=== PATIENT | female | born 1950 | race Caucasian/White ===

== ENCOUNTER → 2017-06-13 11:41 | Outpatient (CLI) | payer MEDICARE, SELFPAY ==
[2017-06-13 13:34] LABS: AST(SGOT) 25 U/L (15-37); Alanine Aminotransfer ALT/SGPT 24 U/L (13-56); Albumin, Serum 3.8 g/dL (3.2-5.0); Alkaline Phosphatase 39 U/L (45-117); Bilirubin, Direct 0.12 mg/dL (0.00-0.30); Cholesterol 193 mg/dL (200); Globulin 3.7 g/dL (2.2-4.2); High Density Lipoprotein 75 mg/dL; Protein, Total 7.5 g/dL (6.4-8.2); Triglycerides 83 mg/dL; Very Low Density Lipoprotein 17 mg/dL (5-40)
== END ==
PROVIDERS: Family Provider Internal Medicine; PCP Internal Medicine; Visit Provider Internal Medicine Cardiovascular Disease
DX: E78.5 Hyperlipidemia, unspecified (principal)
CPT/HCPCS: 36415; 80061; 80076

== ENCOUNTER → 2018-03-30 10:51 | Outpatient (CLI) | payer MEDICARE, SELFPAY ==
--- NOTE | 2018-03-30 10:53 | ECHOD_ITS ---
Reason For Study: arrhythmia Procedure This was a 2D Doppler, Color Flow transthoracic echocardiogram. The study was technically difficult. Due to repiratory interference. Exam performed in department. Left Ventricle Normal size and thickness. The estimated ejection fraction is 65 %. Stage 1 diastolic dysfunction. No regional wall motion abnormalities noted. Right Ventricle Normal size and thickness. Normal systolic function. Atria Normal left atrium. Normal right atrium. Normal atrial septum. Mitral Valve The mitral valve is structurally normal. No prolapse or stenosis seen. Trivial mitral valve insufficiency. Tricuspid Valve Normal tricuspid valve. Trivial tricuspid valve insufficiency. Right ventricular systolic pressure estimated to be 20 mmHg. Aortic Valve Trisinus/trileaflet aortic valve. Mild diffuse aortic valve thickening. Mild (1+) aortic valve insufficiency. Pulmonic Valve Normal pulmonic valve. Trivial pulmonic valve insufficiency. Great Vessels Normal aortic root. Normal arch. Normal inferior vena cava. Inferior vena cava collapse with sniff. Pericardium/Pleural No pericardial effusion. MMode/2D Measurements & Calculations LVIDd: 3.6 cm IVSd: 0.91 cm Ao root diam: 3.1 cm LVIDs: 2.3 cm LVPWd: 0.84 cm LA dimension: 3.1 cm RVDd: 2.5 cm FS: 34.8 % LAV(MOD-bp): 37.3 ml LA A4 area: 14.4 cm2 RA A4 area: 11.3 cm2 LAV(MOD-bp) Indexed: 21.5 ml/m2 LAV(MOD-sp2): 39.9 ml LAV(MOD-sp4): 34.0 ml Time Measurements MV dec time: 0.22 sec Doppler Measurements & Calculations MV E max isaiah: 54.6 cm/sec Lat Peak E' Isaiah: 8.0 cm/sec Med Peak E' Isaiah: 3.5 cm/sec MV A max isaiah: 81.7 cm/sec E/E' lat: 6.8 E/E' med: 15.7 MV E/A: 0.67 Ao V2 max: 162.5 cm/sec AI max isaiah: 432.3 cm/sec LV V1 max: 105.7 cm/sec Ao max P.6 mmHg AI max P.8 mmHg LV V1 max P.5 mmHg AI dec slope: 166.1 cm/sec2 AI P1/2t: 762.1 msec PA V2 max: 73.4 cm/sec TR max isaiah: 195.3 cm/sec TR max P.3 mmHg Interpretation Summary The estimated ejection fraction is 65 %. Stage 1 diastolic dysfunction. Trivial tricuspid valve insufficiency. Right ventricular systolic pressure estimated to be 20 mmHg. Mild (1+) aortic valve insufficiency. Compared to echo report dated 04/24/2016, LV function and aortic insufficiency has remained the same. RVSP has improved from 35 to 20 mm Hg. Ordering Physician: Zane Sotelo Referring Physician: Jaziel Mendez Performed By: Gabbi Adrian RDCS, RVT
== END ==
PROVIDERS: Family Provider Internal Medicine; PCP Internal Medicine; Referring Provider Internal Medicine Cardiovascular Disease; Visit Provider Internal Medicine Cardiovascular Disease
DX: I47.1 Supraventricular tachycardia (principal)
CPT/HCPCS: 93306

== ENCOUNTER → 2018-04-04 10:28 | Outpatient (CLI) | payer MEDICARE, SELFPAY ==
--- NOTE | 2018-04-04 10:30 | STEWCON_ITS ---
Reason For Study: ARRRHYTHMIA Stress Results Protocol: Stress Echocardiogram Maximum Predicted HR: 150 bpm Target HR: 128 bpm % Maximum Predicted HR: 89 % DurationHeart Rate Stage (mm:ss) (bpm) BP Comment BASELINE 77 118/80DILUTED DEFINITY USED- 2 ML BURCE PROTOCOL- STAGE 1 3:00 133 134/78SOB RECOVERY 91 114/84 Stress Duration: 3:00 mm:ss Maximum Stress HR: 133 bpm Baseline Echocardiogram Findings The estimated ejection fraction is 65 %. Stress Echo Wall motion Data Resting WM Intermediate WM Stress WM Resting Wall Motion Wall Motion Stress No regional wall motion Anterio-Basal: Mildly abnormalities noted. hypokinetic. Mid-Anterior : Mildly hypokinetic. EKG Data The baseline ECG displays normal sinus rhythm. The patient exercised according to the regular Cody protocol for a total duration of 3:03. The maximum heart rate attained was 133 beats per minute. This was 88% of maximum predicted heart rate. The patient exercised into stage 1 of the Cody protocol. During stress, there were no ST or T wave changes noted to suggest ischemia. No clinical angina was noted. Interpretation Summary The study was technically difficult. Contrast injection was performed. The estimated ejection fraction is 65 %. Anterio-Basal: Mildly hypokinetic Mid-Anterior : Mildly hypokinetic Abnormal, adequate, treadmill echocardiogram. Positive for ischemia by echocardiographic criteria. No anginal symptoms noted. Patient developed what appeared to be mild to moderate mid anterior septal hypokinesis at peak exercise seen in 3 views. Patient also developed anterior lateral T wave inversion during recovery. Poor exercise capacity for age. Test terminated due to dyspnea. Final LVEF approximately 50%. Decreased sensitivity due to poor echo windows requiring Definity agent. No complications. Ordering Physician: Deepak^Zane^^^ Referring Physician: Zane Sotelo Performed By: TUAN
== END ==
PROVIDERS: Family Provider Internal Medicine; PCP Internal Medicine; Referring Provider Internal Medicine Cardiovascular Disease; Visit Provider Internal Medicine Cardiovascular Disease
DX: I47.1 Supraventricular tachycardia (principal); I10 Essential (primary) hypertension; E78.5 Hyperlipidemia, unspecified; R94.31 Abnormal electrocardiogram [ECG] [EKG]
CPT/HCPCS: 93017; 93350; Q9957; A4216; C8928

== ENCOUNTER → 2018-04-05 09:58 | Outpatient (CLI) | payer MEDICARE, SELFPAY ==
--- NOTE | 2018-04-05 10:15 | RAD_ITS ---
STUDY: X-RAY CHEST REASON FOR EXAM: Female, 68 years old. Shortness of breath, heart catheterization next TECHNIQUE: PA and lateral views of the chest. COMPARISON: None. FINDINGS: The lungs are clear and expanded. There is no demonstrated pleural abnormality. Normal size heart. Normal mediastinum and conor. Normal visualized pulmonary arteries. There is atherosclerotic calcification of the aortic arch with tortuosity. There are diffuse degenerative changes of the visualized thoracic spine. Mild dextrocurvature of the lower thoracic spine. Normal visualized ribs, clavicles, and shoulders. There is no demonstrated abnormality of the visualized soft tissue structures of the upper abdomen. RAD/Chest PA and Lateral IMPRESSION: 1. No acute cardiopulmonary process. Electronically Signed: Lambert Nielsen MD at 7:13 EST , Service support ,
== END ==
PROVIDERS: Family Provider Internal Medicine; PCP Internal Medicine; Referring Provider Internal Medicine Cardiovascular Disease; Visit Provider Internal Medicine Cardiovascular Disease
DX: R06.09 Other forms of dyspnea (principal); R94.39 Abnormal result of other cardiovascular function study
CPT/HCPCS: 71046

== ENCOUNTER → 2018-04-13 06:43 | Day surgery (SDC) | payer MEDICARE, SELFPAY ==
[2018-03-13 15:44] VITALS: BMI 26.6
[2018-04-05 11:19] LABS: Hematocrit 46.2 % (37-47); Mean Corp Hgb Conc 32.5 g/gl (32-36); Mean Corpuscular Hgb 30.5 pg (27.0-32.0); Mean Corpuscular Volume 94.1 fL (81-99); Mean Platelet Vol. 10.8 fl (6.2-12.0); Platelet Count 275 K/mm3 (150-450); Prothrombin Time (Protime)PT. 13.2 SECONDS (11.7-14.9); RBC Distribution Width CV 14.5 % (11.6-14.6); RBC Distribution Width SD 48.8 fl (35.1-43.9); Red Blood Count 4.91 M/mm3 (4.2-5.4); White Blood Count 5.5 K/mm3 (4.4-11.0)
[2018-04-05 11:20] LABS: Partial Thromboplast Time 31.3 Seconds (24.1-36.2)
[2018-04-05 11:30] LABS: Scan Indicated on CBC? Y/N NO
[2018-04-05 11:43] LABS: Anion Gap 10 (5-15); BUN 19 mg/dL (7-18); BUN/Creat Ratio 15.2 RATIO (10-20); Calcium,Total 9.3 mg/dL (8.5-10.1); Chloride 104 mmol/L (98-107); Creatinine, Serum 1.25 mg/dL (0.55-1.02); EST Glomerular Filtration Rate 45 mL/min (>60); Est Glom Filt Rate - Afr Amer 55 mL/min (>60); Glucose 82 mg/dL (74-106); Potassium 4.1 mmol/L (3.5-5.1); Sodium Level 140 mmol/L (136-145)
[2018-04-12 09:52] VITALS: BMI 26.6
--- NOTE | 2018-04-13 09:32 | CL.D_ITS ---
Patient Name: HALLIE DUMONT Study Date: 04/13/2018 Performing: Zane Sotelo MD Ht: 64.17 inches 163 cm : 1950 Wt: 154.32 lbs 70 kg Age: 68 Gender: female BSA: 1.76 PROCEDURE(S) PERFORMED [id number] CLINICAL PROFILE AND INDICATIONS Indications: Suspected CAD, Cardiac Arrythmia Heart Failure: None Stress/Imaging Stress Echocardiogram: Yes Result: IndeterminantStress Echocardiogram: Indetermina nt Angina Classification Anginal Classification w/in 2 Weeks: No symptoms CAD Presentations: Other: SVT, poor exercise performance. Comorbidities/Risk Factors: Hypertension CONCLUSIONS Normal coronary arteries Normal LV size, wall motion,and systolic function Normal Left Ventricular systolic function RECOMMENDATIONS d/c plavix Management as per referring Procurement Technician DESCRIPTION OF PROCEDURE The patient arrived to the procedure lab. The risks and benefits of the procedure as well as a full d escription of our services here and current unavailability of surgical backup were fully explained to the patient and/or their significant other prior to the catheterization. The Timeout was completed, verifying the correct patient and procedure. The patient's procedural site was prepped and draped in the usual fashion. Local anesthetic was given subcutaneously to right groin region with Lidocaine 2%. Using a modified Seldinger technique, arterial access was obtained via the right femoral artery, a 4 Fr sheath was inserted Left Coronary Artery selective angiography was performed in multiple views us ing a 4 Fr. JL4 catheter. Right Coronary Artery selective angiography was then performed in multiple views using a 4 Fr. 3DRC catheter. Left Ventriculography was performed in LE projection using a 4 Fr . Pigtail catheter. LV to AO pullback pressures were then recorded.The arterial sheath was pulled and manual compression applied until hemostasis is achieved. CORONARY ANGIOGRAPHY DOMINANCE: Left Dominant LEFT HEART ASSESSMENT Left Ventricular Ejection Fraction: by LV Gram 75 % Normal LV wall motion Normal Left Ventricular systolic function Normal Left Ventricular systolic function LEFT MAIN: Angiographically normal LEFT ANTERIOR DECENDING ARTERY: Angiographically normal CIRCUMFLEX ARTERY: Angiographically normal RIGHT CORONARY ARTERY: Angiographically normal COMPLICATIONS No Complications PROCEDURE MEDICATIONS Versed 1 mg IV Oxygen: 2 L/min via nasal cannula SUMMARY OF HEMODYNAMIC DATA Time AIR REST ECG 07:11:35 AO 144/75 (103) SA 09:18:50 LV 125/-8, 14 09:27:06 LV 125/-4, 12 09:27:12 LVp 115/-9, 14 09:27:17 AO 144/76 (106) 09:27:22 Signed By Zane Sotelo MD On 04/13/2018 9:31:32 AM Zane Sotelo MD
--- OUTSIDE RECORDS SUMMARY | 2018-06-08 06:41 | XMS RPT_ITS ---
:1950 Author Organization OHIP Support Name Relationship Address Phone DAVID MCINTYRERY Unavailable [address] + [place] [address] ASHISH, RICHARD Unavailable Unavailable + [place] [address] R Unavailable Unavailable Unavailable ICE, CARTER Unavailable [address] + [place] [address] ASHISH, RICHARD Unavailable Unavailable + [place] [address] R Unavailable Unavailable Unavailable ICE, CARTER Unavailable [address] + [place] [address] ASHISH, RICHARD Unavailable Unavailable + R Unavailable Unavailable Unavailable ICE, CARTER Unavailable [address] + [place] [address] ASHISH, RICHARD Unavailable . + ., [place] . R Unavailable Unavailable Unavailable ICE, CARTER Unavailable [address] + [place] [address] ASHISH, RICHARD Unavailable Unavailable + [place] [address] R Unavailable Unavailable Unavailable ICE, CARTER Unavailable [address] + [place] [address] ASHISH, RICHARD Unavailable Unavailable + [place] [address] R Unavailable Unavailable Unavailable ICE, CARTER Unavailable [address] + [place] [address] ASHISH, RICHARD Unavailable Unavailable + [place] [address] R Unavailable Unavailable Unavailable ICE, CARTER Unavailable [address] + [place] [address] ASHISH, RICHARD Unavailable Unavailable + [place] [address] R Unavailable Unavailable Unavailable ICE, CARTER Unavailable [address] + [place] [address] R Unavailable Unavailable Unavailable RICHARD HINOJOSA Unavailable Unavailable + RICAHRD HINOJOSA Unavailable Unavailable + MARTHA HINOJOSAISSA Unavailable Unavailable + ICE, CARTER Unavailable [address] + [place] [address] R Unavailable Unavailable Unavailable ICE, CARTER Unavailable [address] + [place] [address] R Unavailable Unavailable Unavailable ICE, CARTER Unavailable [address] + [place] [address] R Unavailable Unavailable Unavailable Care Team Providers Name Role Phone JAZIEL OLIVER MD, JR. Attending Unavailable JAZIEL OLIVER MD, JR. Primary Care Unavailable Zane Sotelo Attending Unavailable Zane Sotelo Referring Unavailable Zane Sotelo Attending Unavailable Zane Sotelo Referring Unavailable Zane Sotelo Attending Unavailable Zane Sotelo Referring Unavailable Oliver Jr., Jaziel Primary Care Unavailable Francisca Mendez Attending Unavailable Zane Sotelo Attending Unavailable Jaziel Oliver Referring Unavailable Oliver Jr., Jaziel Primary Care Unavailable Zane Sotelo Attending Unavailable Oliver Jr., Jaziel Referring Unavailable Zane Sotelo Attending Unavailable Zane Sotelo Referring Unavailable Oliver Jr., Jaziel Primary Care Unavailable Zane Sotelo Attending Unavailable Zane Sotelo Referring Unavailable Oliver Jr., Jaziel Primary Care Unavailable Zane Sotelo Attending Unavailable Zane Sotelo Referring Unavailable Oliver Jr., Jaziel Primary Care Unavailable Zane Sotelo Consulting Unavailable Zane Sotelo Attending Unavailable Oliver Jr., Jaziel Referring Unavailable Zane Sotelo Attending Unavailable Zane Sotelo Referring Unavailable Oliver Jr., Jaziel Primary Care Unavailable Zane Sotelo Attending Unavailable Zane Sotelo Referring Unavailable Oliver Jr., Jaziel Primary Care Unavailable PROBLEMS PROBLEMS DATE TYPE CONDITION / CODE ATTENDING STATUS SOURCE 04/13/2018 Unknown I47.1 - Zane Sotelo Active [place] Supraventricular [facility] tachycardia / Hospital I47.1(ICD-10) Repository 04/13/2018 Unknown I10 - Essential Zane Sotelo Active [place] (primary) hypertension Community / I10(ICD-10) Hospital Repository 04/13/2018 Unknown R06.09 - Other forms Zane Sotelo Active [place] of dyspnea / Community R06.09(ICD-10) Hospital Repository 04/13/2018 Unknown R94.39 - Abnormal Zane Sotelo Active [place] result of other [facility] cardiovascular Hospital function study / Repository R94.39(ICD-10) 03/13/2018 Unknown E78.5 - Zane Sotelo Active [place] Hyperlipidemia, Community unspecified / Hospital E78.5(ICD-10) Repository PROCEDURES PROCEDURES No Procedure Records FoundRESULTS RESULTS OFFICE VISIT REPORT Observed: 04/14/2018 Status: F Source: [place] 11:13 AM [facility] REPOSITORY [facility] [address] [place] [address] OFFICE VISIT Date of Service: 04/05/18 MR#: [id number] Acct: [id number] Patient: YAA MCINTYRE Rep #: [id number] : 1950 Provider: Zane Sotelo MD Age/Sex: 68/F Location: [facility] Status: Signed Intake Intake 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 Chief Complaint: Routine f/u Allergies No Known Allergies Allergy (Verified 03/13/18 15:48) Medications Fenofibrate [Tricor] 145 mg PO DAILY 04/23/16 [History Confirmed 04/12/18] Quinapril/Hydrochlorothiazide [Accuretic 20-12.5 MG Tablet] 1 tab PO DAILY 04/23/16 [History Confirmed 04/12/18] Diltiazem CD [Cardizem CD] 120 mg PO DAILY #30 cap 04/25/16 [Rx Confirmed 04/12/18] bupropion HCl SR 100 mg tablet,12 hr sustained-release 100 mg PO BID 03/13/18 [History Confirmed 04/12/18] sertraline 100 mg tablet 100 mg PO BID tab 03/13/18 [History Confirmed 04/12/18] aspirin 81 mg tablet,delayed release 81 mg PO DAILY #30 tab 04/04/18 [Rx Confirmed 04/12/18] clopidogrel 75 mg tablet 75 mg PO DAILY #30 tab 04/04/18 [Rx Confirmed 04/12/18] Nursing Note Patient here with for heart cath teaching (has never had one before). Written instructions reviewed verbally and given to patient. She started ASA 81 mg as well as Plavix 75 mg daily, and is now taking them every morning. Notified to be NPO after midnight on 04/12/18 and which meds to take with sips of water am of procedure (04/13/18). Notified to HOLD Quinapril/HCTZ am of procedure due to diuretic, it will be given afterward to allow elimination of cath dye via kidneys. will drive her and bring her home. Notified will stay overnight if stent is placed. Patient will have CXR and labs done this morning. 04/14/18 1113 <Electronically signed by Zane Sotelo MD> Date Zane Sotelo MD Cosigner Signature: Date (if applicable) CC: Willard Ngo PROTHROMBIN TIME W/INR Collected: 04/13/2018 Status: F Source: [place] 8:30 AM [facility] REPOSITORY TYPE CODE TESTS RESULT OUT OF RANGE REFERENCE UNITS LAB L300.4150 11.7-14.9 SECONDS Normal PROTIME 13.2 LAB L300.4200 Normal INR 1.0 Performed By: #### L300.3900, L300.4310 #### [facility] [address] [facility] [place], [address] PARTIAL THROMBOPLAST Collected: 04/13/2018 Status: F Source: [place] TIME 8:30 AM [facility] REPOSITORY TYPE CODE TESTS RESULT OUT OF RANGE REFERENCE UNITS LAB L300.4310 24.1-36.2 Seconds Normal PTT 31.3 Performed By: #### L300.3900, L300.4310 #### [facility] [address] [place], [place], [id number] CBC-COMPLETE BLOOD CNT Collected: 04/13/2018 Status: F Source: [place] NO DIFF 8:30 AM [facility] REPOSITORY TYPE CODE TESTS RESULT OUT OF RANGE REFERENCE UNITS LAB L100.1000 4.4-11.0 K/mm3 Normal WBC 5.5 LAB L100.1200 4.2-5.4 M/mm3 Normal RBC 4.91 LAB L100.1300 12.0-15.0 g/dl Normal HGB 15.0 LAB L100.1400 37-47 % Normal HCT 46.2 LAB L100.1500 81-99 fL Normal MCV 94.1 LAB L100.1600 27.0-32.0 pg Normal MCH 30.5 LAB L100.1700 32-36 g/gl Normal MCHC 32.5 LAB L100.1810 11.6-14.6 % Normal RDW CV 14.5 LAB L100.1820 35.1-43.9 fl High RDW SD 48.8 LAB L100.1900 150-450 K/mm3 Normal PLT 275 LAB L100.2000 6.2-12.0 fl Normal MPV 10.8 Performed By: #### L100.0500 #### [facility] [address] [place], [place], [id number] BASIC METABOLIC Collected: 04/13/2018 Status: F Source: [place] PROFILE (BMP) 8:30 AM [facility] REPOSITORY TYPE CODE TESTS RESULT OUT OF RANGE REFERENCE UNITS LAB L501.0100 74-106 mg/dL Normal GLU 82 Result Comment: Please note revised GLUCOSE reference range effective 2017. LAB L501.1000 7-18 mg/dL High BUN 19 LAB L501.1100 0.55-1.02 mg/dL High CREAT,SERUM 1.25 Result Comment: The validity of the calculated GFR AND GFRAA in patients over 70 years has not been determined. Clinical correlation is essential. LAB L501.1110 >60 mL/min Low EST GFR 45 Result Comment: Non- GFR Calc LAB L501.1115 >60 mL/min Low EST GFR - AA 55 Result Comment: GFR Calc LAB L501.1300 10-20 RATIO Normal BUN/CRE 15.2 LAB L501.2200 8.5-10.1 mg/dL CA Normal 9.3 LAB L501.5300 136-145 mmol/L NA Normal 140 LAB L501.5600 3.5-5.1 mmol/L K Normal 4.1 LAB L501.5900 98-107 mmol/L CL Normal 104 LAB L501.6100 21.0-32.0 mmol/L Normal CO2 26.0 LAB L501.6200 5-15 Normal GAP 10 Performed By: #### L500.2500 #### [facility] [address] [place], [address] CHEST PA AND LATERAL Observed: 04/05/2018 Status: F Source: [place] 10:02 AM [facility] REPOSITORY [facility] Services [address] [place] [address] Chest PA and Lateral MR#: [id number] Acct: [id number] Name: YAA MCINTYRE Rep #: [id number] : 1950 F 68 From: Lambert Nielsen MD PCP: Jaziel Oliver Jr., MD Status: REG CLI Study: Chest PA and Lateral Date of Exam: 04/05/18 Exam# [id number] Ordering Dr: Zane Sotelo MD STUDY: X-RAY CHEST REASON FOR EXAM: Female, 68 years old. Shortness of breath, heart catheterization next TECHNIQUE: PA and lateral views of the chest. COMPARISON: None. FINDINGS: The lungs are clear and expanded. There is no demonstrated pleural abnormality. Normal size heart. Normal mediastinum and conor. Normal visualized pulmonary arteries. There is atherosclerotic calcification of the aortic arch with tortuosity. There are diffuse degenerative changes of the visualized thoracic spine. Mild dextrocurvature of the lower thoracic spine. Normal visualized ribs, clavicles, and shoulders. There is no demonstrated abnormality of the visualized soft tissue structures of the upper abdomen. RAD/Chest PA and Lateral IMPRESSION: 1. No acute cardiopulmonary process. Electronically Signed: Lambert Nielsen MD at 7:13 EST , Service support , CC: Jaziel Oliver Jr., MD; aZne Sotelo MD Knot Picker Cloth: Signed STRESS TEST ECHO W/ Observed: 04/04/2018 Status: F Source: [place] CONTRAST 12:10 PM [facility] REPOSITORY [facility] [place] [address] Stress Test Echo W/Contrast MR#: [id number] Acct: [id number] Name: YAA MCINTYRE Rep #: [id number] : 1950 68 From: Zane Sotelo MD Primary Care: Jaziel Oliver Jr., MD Status: REG CLI Ordering Dr: Zane Sotelo MD Sex: F C Reason For Study: ARRRHYTHMIA Stress Results Protocol: Stress Echocardiogram Maximum Predicted HR: 150 bpm Target HR: 128 bpm % Maximum Predicted HR: 89 % DurationHeart Rate Stage (mm:ss) (bpm) BP Comment BASELINE 77 118/80DILUTED DEFINITY USED- 2 ML BURCE PROTOCOL- STAGE 1 3:00 133 134/78SOB RECOVERY 91 114/84 Stress Duration: 3:00 mm:ss Maximum Stress HR: 133 bpm Baseline Echocardiogram Findings The estimated ejection fraction is 65 %. Stress Echo Wall motion Data Resting WM Intermediate WM Stress WM Resting Wall Motion Wall Motion Stress No regional wall motion Anterio-Basal: Mildly abnormalities noted. hypokinetic. Mid-Anterior : Mildly hypokinetic. EKG Data The baseline ECG displays normal sinus rhythm. The patient exercised according to the regular Cody protocol for a total duration of 3:03. The maximum heart rate attained was 133 beats per minute. This was 88% of maximum predicted heart rate. The patient exercised into stage 1 of the Cody protocol. During stress, there were no ST or T wave changes noted to suggest ischemia. No clinical angina was noted. Interpretation Summary The study was technically difficult. Contrast injection was performed. The estimated ejection fraction is 65 %. Anterio-Basal: Mildly hypokinetic Mid-Anterior : Mildly hypokinetic Abnormal, adequate, treadmill echocardiogram. Positive for ischemia by echocardiographic criteria. No anginal symptoms noted. Patient developed what appeared to be mild to moderate mid anterior septal hypokinesis at peak exercise seen in 3 views. Patient also developed anterior lateral T wave inversion during recovery. Poor exercise capacity for age. Test terminated due to dyspnea. Final LVEF approximately 50%. Decreased sensitivity due to poor echo windows requiring Definity agent. No complications. Ordering Physician: Deepak Referring Physician: Zane Sotelo Performed By: 04/04/18 1209 Date Zane Sotelo MD CC: Jaziel Oliver Jr., MD; Zane Sotelo MD Date Dictated: 04/04/18 1102 Date Transcribed: 04/04/18 1209 Knot Picker Cloth: Signed ECHOCARDIOGRAM COMPLETE Observed: 03/31/2018 Status: F Source: [place] 12:04 PM [facility] REPOSITORY [facility] Cardiovascular Services [address] [place] [address] Echo Complete 03/30/18 1059 MR#: [id number] Acct: [id number] Name: YAA MCINTYRE Rep #: [id number] : 1950 68 From: Zane Sotelo MD Attending Dr: Zane Sotelo MD Status: REG CLI Ordering Dr: Zane Sotelo MD Date: 03/30/18 [facility]: [facility] Sex: F C Admitted: Reason For Study: arrhythmia Procedure This was a 2D Doppler, Color Flow transthoracic echocardiogram. The study was technically difficult. Due to repiratory interference. Exam performed in department. Left Ventricle Normal size and thickness. The estimated ejection fraction is 65 %. Stage 1 diastolic dysfunction. No regional wall motion abnormalities noted. Right Ventricle Normal size and thickness. Normal systolic function. Atria Normal left atrium. Normal right atrium. Normal atrial septum. Mitral Valve The mitral valve is structurally normal. No prolapse or stenosis seen. Trivial mitral valve insufficiency. Tricuspid Valve Normal tricuspid valve. Trivial tricuspid valve insufficiency. Right ventricular systolic pressure estimated to be 20 mmHg. Aortic Valve Trisinus/trileaflet aortic valve. Mild diffuse aortic valve thickening. Mild (1+) aortic valve insufficiency. Pulmonic Valve Normal pulmonic valve. Trivial pulmonic valve insufficiency. Great Vessels Normal aortic root. Normal arch. Normal inferior vena cava. Inferior vena cava collapse with sniff. Pericardium/Pleural No pericardial effusion. MMode/2D Measurements AND Calculations LVIDd: 3.6 cm IVSd: 0.91 cm Ao root diam: 3.1 cm LVIDs: 2.3 cm LVPWd: 0.84 cm LA dimension: 3.1 cm RVDd: 2.5 cm FS: 34.8 % LAV(MOD-bp): 37.3 ml LA A4 area: 14.4 cm2 RA A4 area: 11.3 cm2 LAV(MOD-bp) Indexed: 21.5 ml/m2 LAV(MOD-sp2): 39.9 ml LAV(MOD-sp4): 34.0 ml Time Measurements MV dec time: 0.22 sec Doppler Measurements AND Calculations MV E max isaiah: 54.6 cm/sec Lat Peak E' Isaiah: 8.0 cm/sec Med Peak E' Isaiah: 3.5 cm/sec MV A max isaiah: 81.7 cm/sec E/E' lat: 6.8 E/E' med: 15.7 MV E/A: 0.67 Ao V2 max: 162.5 cm/sec AI max isaiah: 432.3 cm/sec LV V1 max: 105.7 cm/sec Ao max P.6 mmHg AI max P.8 mmHg LV V1 max P.5 mmHg AI dec slope: 166.1 cm/sec2 AI P1/2t: 762.1 msec PA V2 max: 73.4 cm/sec TR max isaiah: 195.3 cm/sec TR max P.3 mmHg Interpretation Summary The estimated ejection fraction is 65 %. Stage 1 diastolic dysfunction. Trivial tricuspid valve insufficiency. Right ventricular systolic pressure estimated to be 20 mmHg. Mild (1+) aortic valve insufficiency. Compared to echo report dated 04/24/2016, LV function and aortic insufficiency has remained the same. RVSP has improved from 35 to 20 mm Hg. Ordering Physician: Zane Sotelo Referring Physician: Jaziel Oliver Performed By: Gabbi Adrian RDCS, RVT 03/31/18 1204 Date Zane Sotelo MD CC: Jaziel Oliver Jr., MD; Zane Sotelo MD Date Dictated: 03/30/18 1059 Date Transcribed: 03/31/18 1204 Knot Picker Cloth: Signed CARDIOLOGY VISIT Observed: 03/13/2018 Status: F Source: [place] REPORT 4:13 PM [facility] REPOSITORY [facility] [address] [place] [address]. [address] [place] [address] OFFICE VISIT Date of Service: 03/13/18 MR#: [id number] Acct: [id number] Name: YAA MCINTYRE Rep #: [id number] : 1950 Provider: Zane Sotelo MD Age/Sex: 68/F Location: [facility] Status: Signed HPI HPI Chief Complaint: Routine f/u Details: This is a 68-year-old white female who presents today for a hospital follow-up visit. She has a history of SVT, hypertension, and hyperlipidemia. She has been unable to tolerate statins in the past. On 04-23-2016, the patient presented to [facility] ER with severe abdominal pain due to constipation. In addition to this, it was noted that she was in asymptomatic supraventricular tachycardia, which was corrected with IV Cardizem and then reverted back to SVT, she was then placed on a cardizem drip and maintained sinus rhythm. A CT scan of her abdomen was done and demonstrated diverticulosis and the patient was admitted to PCU. Prior to her hospital visit, she had no significant cardiac history. On 04/24/2016, the patient underwent a walking stress echocardiogram which was negative for inducible ischemia, the estimated ejection fraction of 65% and there were no ST or T-wave changes noted. The patient exercised into stage III of the Cody protocol. The SVT was likely a result of her severe abdominal pain constipation, and possible hypokalemia. The patient was discharged home on Cardizem CD 120 mg daily. The patient was also placed on Colace daily. It was not recommended that the patient be on anticoagulation at this time. The patient underwent a 30 day monitor which demonstrated essentially normal sinus rhythm but she had one episode of SVT which was undetectable. This occurred on 06/29/16 and lasted approximately 6 seconds. Since her last visit, the patient has had no palpitations, chest pain, lightheadedness, presyncope or syncope. She denies any palpitations outside of this event, and is taking and tolerating his medicines well. She has had no drop or change in her exercise capacity. In our office today her blood pressure is 110/70, and pulse is 72 and regular with ectopics. Her physical exam is as below. Her lipids as of 04/24/16 showed LDL of 59 and an HDL of 52. Her lipids as of 06/13/17 show an LDL of 101 and an HDL of 75. EKG dated 04/24/16 shows normal sinus rhythm, low voltage QRS, nonspecific T wave abnormality in the anterior leads. EKG dated 03/13/18 shows normal sinus rhythm with ectopic beats, left anterior hemiblock, anterior T wave inversion with poor R wave progression across the precordium. This is a new finding. 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 Is patient in pain?: No Allergies No Known Allergies Allergy (Verified 03/13/18 15:48) Medications Fenofibrate [Tricor] 145 mg PO DAILY 04/23/16 [History Confirmed 03/13/18] Quinapril/Hydrochlorothiazide [Accuretic 20-12.5 MG Tablet] 1 tab PO DAILY 04/23/16 [History Confirmed 03/13/18] Diltiazem CD [Cardizem CD] 120 mg PO DAILY #30 cap 04/25/16 [Rx Confirmed 03/13/18] bupropion HCl SR 100 mg tablet,12 hr sustained-release 100 mg PO BID 03/13/18 [History Confirmed 03/13/18] sertraline 100 mg tablet 100 mg PO BID tab 03/13/18 [History Confirmed 03/13/18] [facility] Medical History Hyperlipidemia (Chronic) Hypertension (Chronic) SVT (supraventricular tachycardia) (Chronic) Anxiety and depression (Chronic) Diverticulitis (Chronic) Surgical History H/O sinus surgery (Resolved) H/O tubal ligation (Resolved) History of bunionectomy of left great toe (Resolved) History of carpal tunnel release (Resolved) History of cataract surgery (Resolved) Family History Mother CVA (cerebral vascular accident) Myocardial infarction age 58 Brother CAD (coronary artery disease) CABG Father CAD (coronary artery disease) Social History Smoking Status: Never smoker ROS Const Const: Positive for other (Feels well other than hot flashes.); negative for fatigue, weakness, body ache, fever(s), headache(s), chills, frequent falls, night sweats, daytime sleepiness, difficulty sleeping, excessive sweating, weight gain, weight loss, increased appetite, poor appetite or anorexia Eyes Eyes: Negative for blind spots, loss of peripheral vision, transient loss of vision, blurry vision, change in vision, double vision, floaters, tunnel vision or other ENT ENT: Negative for headache(s), dizziness, hearing loss, tinnitus, Nosebleed/epistaxis, balance problems, post nasal drip, lip swelling, tongue swelling, bleeding gums, hoarseness, neck pain, dry mouth or other Cardio Chest Pain: No Palpitations: No Edema: None Muscle aches with walking: None Resp Respiratory: Negative for SOB with activity, SOB at rest, SOB orthopnea\SOB lying down, Cough, Coughing up blood/hemoptysis, chest congestion, pain on inspiration, snoring, stridor, wheezing, crackles, paroxysmal nocturnal dyspnea or other GI GI: Negative nausea, vomiting, heartburn, constipation, belching, bloating, cramping, vomiting blood/hematemesis, bright, red blood in stools, black,tarry stools, loose stools, Difficulty Swallowing or other : Negative for hematuria, frequent nighttime urination/ nocturia, erectile dysfunction or abnormal vaginal bleeding Musc Musc: Negative for balance problems, muscle aches/ myalgia, muscle weakness or joint pain Skin Skin: Negative redness, non-healing lesions, rash, unusual bruising, skin ulcer, wounds, jaundice or other Neuro Neuro: Negative for weakness, headache(s), frequent falls, blurry vision, double vision, dizziness, lightheadedness, near syncope, syncope, orthostatic symptoms, confusion, memory loss, restless legs, vertigo, seizures, lack of coordination or other [place] Hematologic/Lymphatic: Negative for easy bleeding, easy bruising, enlarged lymph nodes or other Endo Endo: Negative for fatigue, excessive sweating, cold intolerance, heat intolerance, flushing, increased thirst/drinking, increased hunger, hair loss, hair growth or other Psych Psych: Negative for anxiety, depression, thoughts of harming anyone, thoughts of harming yourself, visual hallucinations, panic attacks or audible hallucinations Allergy Allergy/Immunology: Negative for lip swelling, Negative for tongue swelling, Negative for rash, Negative for throat swelling, Negative for hives Cardiology Exam Const Appearance: cooperative, healthy appearing and no acute distress Nutritional Appearance: well nourished Orientation: alert, oriented x3 and oriented to person Head Head: normal to inspection, atraumatic and normocephalic Nose: external nose normal Face and Sinus: face symmetric Mouth: oral mucosae normal Eyes General: appearance normal, both eyes and all related structures Eyelids: eyelids normal Conjunctivae: conjunctivae normal Pupils: PERRL and normal by confrontation EOM: EOM intact bilaterally Neck Neck: normal visual inspection and full ROM Carotids: normal carotid upstroke Chest Chest inspection: normal inspection of the chest Auscultation: Bilateral: Clear to Auscultation Cardio Palpation: normal PMI Rate: regular rate Rhythm: regular rhythm and ectopic beats Heart sounds: S1 normal and S2 normal GI GI: normal to inspection, no hepatosplenomegaly and bowel sounds present Neuro General: alert, oriented x3, awake, CN's II-XI intact bilaterally and moves all extremities Skin Skin: no rashes or lesions noted Extremities Pulses: Normal: Right Femoral Pulse, Left Femoral Pulse, Right Dorsalis Pedis Pulse, Left Dorsalis Pedis Pulse, Right Posterior Tibial Pulse, Left Posterior Tibial Pulse, Right Radial Pulse, Left Radial Pulse Lower Extremity Edema: None: Bilateral Psych Psychological: normal affect Assessment AND Plan 1. SVT (supraventricular tachycardia) I47.1 Plan 1. SVT: The patient has had no palpitations and is taking and tolerating her medicines well. Her blood pressure and heart rate are well controlled. Recommend that she continue her diltiazem and quinapril/hydrochlorothiazide. Her graph patient has a change in her EKG specifically with poor R wave progression across the precordium and left axis deviation which was not present on previous EKG in 2016. Although she is asymptomatic, and to ensure that she has had no significant coronary event that may have masqueraded as some other symptoms, I recommended that she undergo a repeat echocardiogram as well as a treadmill echocardiogram for evaluation of ischemia. If this is grossly abnormal, the patient may require diagnostic coronary angiogram. Orders Orders: 2. Hyperlipidemia E78.5 Plan 2. Hyperlipidemia: The patient's LDL and HDL cholesterol are fairly well-controlled given her age and risk factors. Continue fenofibrate. 3. Return office in 6 months. This note was generated using a voice recognition system and there may be incorrect words, spelling or punctuation that were not noted when reviewing the office note prior to saving. Orders Orders: Plan Detail Other Orders Orders: Follow Up +6M (Deepak) Coding Level of Care Code Off vis,est,level 3 Diagnoses SVT (supraventricular tachycardia) I47.1 Hyperlipidemia E78.5 Coding Level of Care Code Off vis,est,level 3 Diagnoses SVT (supraventricular tachycardia) I47.1 Hyperlipidemia E78.5 03/13/18 1613 <Electronically signed by Zane Soetlo MD> Date Zane Sotelo MD Cosigner Signature: Date (if applicable) CC: Jaziel Oliver Jr., MD 12 LEAD EKG PERFORMED Observed: 03/13/2018 Status: F Source: [place] [facility] 3:51 PM [facility] REPOSITORY [address] [address] 12 Lead EKG performed by [facility] 03/13/18 1550 MR#: [id number] Acct: [id number] Name: YAA MCINTYRE Rep #: [id number] : 1950 68 From: Zane Sotelo MD Attending Dr: Zane Sotelo MD Status: DEP AMB Ordering Dr: Zane Sotelo MD Date: 03/13/18 Location: [facility] Sex: F C Admitted: [facility]/12 Lead EKG performed by [facility] ECG Report Interpretation Sinus Rhythm - frequent PAC s # PACs = 3.-Anterior infarct -age undetermined. - T-abnormality - Anterior ischemia. ABNORMAL Electronically signed on 04/28/2018 at 15:26 by Zane Sotelo Software Version [id number] 04/28/18 153 Date Zane Sotelo MD CC: Jaziel Oliver Jr., MD Date Dictated: 03/13/181549 Date Transcribed: 03/13/181549 Knot Picker Cloth: Signed CBC Collected: 01/20/2018 Status: F Source: [facility] 10:49 AM [facility] REPOSITORY TYPE CODE TESTS RESULT OUT OF REFERENCE UNITS RANGE LAB WBC(LOINC) 4.60-10.80 10 3/mcL WBC 6.20 LAB RBCCT(LOINC 4.20-5.40 10 6/mcL ) RBC 4.97 LAB HGB(LOINC) 12.0-16.0 G/dL Hgb 15.3 LAB HCT(LOINC) 37.0-47.0 % Hct 44.5 LAB MCV(LOINC) 80.0-94.0 fL MCV 89.7 LAB MCH(LOINC) 27.0-31.2 pg MCH 30.9 LAB MCHC(LOINC) 33.0-37.0 G/dL MCHC 34.4 LAB RDW(LOINC) 11.5-14.5 % RDW 14.2 LAB PLT(LOINC) 130-400 10 3/mcL Platelet 320 LAB MPV(LOINC) 7.4-10.4 fL MPV 9.1 Performed By: #### ADIFF, CBC, ANEU #### [address] [address] #### GFR, CMP #### [address] [address] .AUTO DIFF Collected: 01/20/2018 Status: F Source: [facility] 10:49 AM [facility] REPOSITORY TYPE CODE TESTS RESULT OUT OF REFERENCE UNITS RANGE LAB MAXIMILIANO(LOINC) 37.0-80.0 % Neutrophil % 63.2 LAB LYM(LOINC) 10.0-50.0 % Lymphocyte % 27.8 LAB MON(LOINC) 1.7-13.0 % Monocyte % 5.8 LAB EO(LOINC) 0.0-7.0 % Eosinophil % 1.4 LAB BAS(LOINC) 0.0-2.5 % Basophil % 1.8 LAB ABLYM(LOIN 0.77-3.85 10 3/mcL C) Lymphocyte, 1.70 Absolute LAB NAKIA(LOINC 0.15-1.00 10 3/mcL ) Monocyte, 0.40 Absolute LAB AEOS(LOINC 0.00-0.40 10 3/mcL ) Eosinophil, 0.10 Absolute LAB ABAS(LOINC 0.00-0.19 10 3/mcL ) Basophil, 0.10 Absolute Performed By: #### ADIFF, CBC, ANEU #### [facility] [address] [place], [place] [address] #### GFR, CMP #### [address] [address] .NEUABS Collected: 01/20/2018 Status: F Source: [facility] 10:49 [facility] REPOSITORY TYPE CODE TESTS RESULT OUT OF REFERENCE UNITS RANGE LAB ANEU(LOINC) 2.85-6.16 10 3/mcL Neutrophil, 3.90 Absolute Performed By: #### ADIFF, CBC, ANEU #### [place] [address] [place], [place] [address] #### GFR, CMP #### [address] [address] CMP Collected: 01/20/2018 Status: F Source: [facility] 10:49 [facility] REPOSITORY TYPE CODE TESTS RESULT OUT OF REFERENCE UNITS RANGE LAB GLU(LOINC) 80-115 mg/dL Low Glucose Level 77 LAB NA(LOINC) 136-145 mmol/L Sodium Level 140 LAB K(LOINC) 3.5-5.1 mmol/L Potassium Level 4.2 LAB CL(LOINC) 98-107 mmol/L Chloride 102 LAB CO2(LOINC) 23-31 mmol/L CO2 26 LAB EBAL(LOINC mEq/L ) Electrolyte Balance 12.0 LAB BUN(LOINC) 7-18 mg/dL BUN High 26 LAB CRE(LOINC) 0.55-1.02 mg/dL Creatinine High Lvl (s) 1.34 LAB BC(LOINC) 7-27 ratio BUN/Creatinine 19 Ratio LAB CA(LOINC) 8.4-10.2 mg/dL Calcium Lvl 10.0 LAB PROT(LOINC 6.4-8.2 G/dL ) Total Protein 7.3 LAB ALB(LOINC) 3.4-4.8 G/dL Albumin Level 4.0 LAB GLB(LOINC) G/dL Globulin 3.3 LAB AG(LOINC) 1.1-2.5 ratio A/G Ratio 1.2 LAB BILT(LOINC 0.2-1.0 mg/dL ) Bili Total 0.4 LAB AP(LOINC) 40-135 U/L Alk Phos 44 LAB AST(LOINC) 10-40 U/L AST/SGOT 22 LAB ALT(LOINC) 10-35 U/L ALT/SGPT 21 Performed By: #### ADIFF, CBC, ANEU #### [facility] [address] [place], [place] [address] #### GFR, CMP #### [address] [address] .GFR Collected: 01/20/2018 Status: F Source: [facility] 10:49 AM [facility] REPOSITORY TYPE CODE TESTS RESULT OUT OF REFERENCE UNITS RANGE LAB GFRAA(LOINC ml/min/1.73 ) sqm GFR 48 Bahraini Result Comment: GFR Population mean for , Non- Americans Ages 20-29 = 116 mL/min/1.73 sq.m. Ages 30-39 = 107 mL/min/1.73 sq.m. Ages 40-49 = 99 mL/min/1.73 sq.m. Ages 50-59 = 93 mL/min/1.73 sq.m. Ages 60-69 = 85 mL/min/1.73 sq.m. Ages 70+ = 75 mL/min/1.73 sq.m. Chronic Kidney Disease: Less than 60 mL/min/1.73 square meters End Stage Renal Disease: Less than 15 mL/min/1.73 square meters LAB GFRNO(LOINC) ml/min/1.73sqm GFR Non- 39 Result Comment: GFR Population mean for , Non- Americans Ages 20-29 = 116 mL/min/1.73 sq.m. Ages 30-39 = 107 mL/min/1.73 sq.m. Ages 40-49 = 99 mL/min/1.73 sq.m. Ages 50-59 = 93 mL/min/1.73 sq.m. Ages 60-69 = 85 mL/min/1.73 sq.m. Ages 70+ = 75 mL/min/1.73 sq.m. Chronic Kidney Disease: Less than 60 mL/min/1.73 square meters End Stage Renal Disease: Less than 15 mL/min/1.73 square meters Performed By: #### ADIFF, CBC, ANEU #### [facility] [address] [place], [place] [address] #### GFR, CMP #### [facility] [address] [place] [address] CARDIOLOGY VISIT Observed: 08/16/2017 Status: F Source: [place] REPORT 2:42 PM [facility] REPOSITORY [facility] [address] [place] [address] OFFICE VISIT Date of Service: 08/16/17 MR#: [id number] Acct: [id number] Name: YAA MCINTYRE Rep #: [id number] : 1950 Provider: Zane Sotelo MD Age/Sex: 67/F Location: [facility] Status: Signed HPI HPI Chief Complaint: Routine f/u Details: HPI Referring physician: Dr. Oliver This is a 67-year-old white female who presents today for a hospital follow-up visit. She has a history of SVT, hypertension, and hyperlipidemia. She has been unable to tolerate statins in the past. On 04-23-2016, the patient presented to [facility] ER with severe abdominal pain due to constipation. In addition to this, it was noted that she was in asymptomatic supraventricular tachycardia, which was corrected with IV Cardizem and then reverted back to SVT, she was then placed on a cardizem drip and maintained sinus rhythm. A CT scan of her abdomen was done and demonstrated diverticulosis and the patient was admitted to PCU. Prior to her hospital visit, she had no significant cardiac history. On 04/24/2016, the patient underwent a walking stress echocardiogram which was negative for inducible ischemia, the estimated ejection fraction of 65% and there were no ST or T-wave changes noted. The patient exercised into stage III of the Cody protocol. The SVT was likely a result of her severe abdominal pain constipation, and possible hypokalemia. The patient was discharged home on Cardizem CD 120 mg daily. The patient was also placed on Colace daily. It was not recommended that the patient be on anticoagulation at this time. The patient underwent a 30 day monitor which demonstrated essentially normal sinus rhythm but she had one episode of SVT which was undetectable. This occurred on 06/29/16 and lasted approximately 6 seconds. Since her last visit, the patient has had no palpitations, chest pain, lightheadedness, presyncope or syncope. She denies any palpitations outside of this event, and is taking and tolerating hemedicines well. In our office today her blood pressure is 110/70, and pulse is 72 and regular. Her physical exam is as below. Her lipids as of 04/24/16 showed LDL of 59 and an HDL of 52. Her lipids as of 06/13/17 show an LDL of 101 and an HDL of 75. Intake Vital Signs08/16/17 Height 5 ft 4 in Intake Visit Reasons: 6 M FU Allergies No Known Allergies Allergy (Verified 08/16/17 14:23) Medications Sertraline HCl [Zoloft] 200 mg PO DAILY 03/16/13 [History Confirmed 08/16/17] Fenofibrate [Tricor] 145 mg PO DAILY 04/23/16 [History Confirmed 08/16/17] MedroxyPROGESTERone [Provera] 2.5 mg PO DAILY 04/23/16 [History Confirmed 08/16/17] Quinapril/Hydrochlorothiazide [Accuretic 20-12.5 MG Tablet] 1 tab PO DAILY 04/23/16 [History Confirmed 08/16/17] Diltiazem CD [Cardizem CD] 120 mg PO DAILY #30 cap 04/25/16 [Rx Confirmed 08/16/17] bupropion HCl SR 200 mg tablet,12 hr sustained-release 100 mg PO BID tab 08/15/17 [History Confirmed 08/16/17] [facility] Medical History Hyperlipidemia (Chronic) Hypertension (Chronic) SVT (supraventricular tachycardia) (Chronic) Anxiety and depression (Chronic) Diverticulitis (Chronic) Surgical History H/O sinus surgery (Resolved) H/O tubal ligation (Resolved) History of bunionectomy of left great toe (Resolved) History of carpal tunnel release (Resolved) History of cataract surgery (Resolved) Family History Mother CVA (cerebral vascular accident) Myocardial infarction age 58 Brother CAD (coronary artery disease) CABG Father CAD (coronary artery disease) Social History Smoking Status: Never smoker ROS Const Const: Positive for fatigue and difficulty sleeping (difficulty falling asleep); negative for weakness, frequent falls, headache(s) or excessive sweating Eyes Eyes: Negative for loss of peripheral vision, transient loss of vision, blurry vision or double vision ENT ENT: Negative for headache(s), dizziness, Nosebleed/epistaxis or balance problems Cardio Chest Pain: No Edema: None Muscle aches with walking: None Resp Respiratory: Negative for SOB with activity, SOB at rest, SOB orthopnea\SOB lying down or paroxysmal nocturnal dyspnea GI GI: Negative nausea or heartburn : Negative for hematuria Musc Musc: Negative for muscle aches/ myalgia, muscle weakness, joint pain or balance problems Skin Skin: Negative non-healing lesions, unusual bruising or rash Neuro Neuro: Negative for weakness, frequent falls, blurry vision, headache(s), dizziness, lightheadedness, orthostatic symptoms or double vision [place] Hematologic/Lymphatic: Negative for easy bruising Endo Endo: Positive for fatigue; negative for excessive sweating or increased thirst/drinking Psych Psych: Negative for anxiety or depression Allergy Allergy/Immunology: Negative for hives, Negative for rash Cardiology Exam Const Appearance: cooperative, healthy appearing and no acute distress Nutritional Appearance: well nourished Orientation: alert, oriented x3 and oriented to person Head Head: normal to inspection, atraumatic and normocephalic Nose: external nose normal Face and Sinus: face symmetric Mouth: oral mucosae normal Eyes General: appearance normal, both eyes and all related structures Eyelids: eyelids normal Conjunctivae: conjunctivae normal Pupils: PERRL and normal by confrontation EOM: EOM intact bilaterally Neck Neck: normal visual inspection and full ROM Carotids: normal carotid upstroke Chest Chest inspection: normal inspection of the chest Auscultation: Bilateral: Clear to Auscultation Cardio Palpation: normal PMI Rate: regular rate Rhythm: regular rhythm Heart sounds: S1 normal and S2 normal GI GI: normal to inspection, no hepatosplenomegaly and bowel sounds present Neuro General: alert, oriented x3, awake, CN's II-XI intact bilaterally and moves all extremities Skin Skin: no rashes or lesions noted Extremities Pulses: Normal: Right Femoral Pulse, Left Femoral Pulse, Right Dorsalis Pedis Pulse, Left Dorsalis Pedis Pulse, Right Posterior Tibial Pulse, Left Posterior Tibial Pulse, Right Radial Pulse, Left Radial Pulse Lower Extremity Edema: None: Bilateral Psych Psychological: normal affect Assessment AND Plan 1. SVT (supraventricular tachycardia) I47.1 Plan 1. Supraventricular tachycardia: The patient has had no further SVT since her last visit, and is taking and tolerating her medicines well. Her Cardizem appears to be controlling her heart rate pressure fairly well. She is currently on quinapril/hydrochlorothiazide and she has had no further palpitations. Her blood pressure is optimized today. I do not believe she requires repeat stress test or echo at this time. 2. Hyperlipidemia E78.5 Plan 2. Hyperlipidemia: Her LDL and HDL cholesterol are fairly well-controlled given her risk factors. Unfortunately she was unable to tolerate statins. Continue fenofibrate. 3. Return office in 6 months. This note was generated using a voice recognition system and there may be incorrect words, spelling or punctuation that were not noted when reviewing the office note prior to saving. Plan Detail Follow Up +6m (Deepak) Coding Level of Care Code Off vis,est,level 3 Diagnoses SVT (supraventricular tachycardia) I47.1 Hyperlipidemia E78.5 Coding Level of Care Code Off vis,est,level 3 Diagnoses SVT (supraventricular tachycardia) I47.1 Hyperlipidemia E78.5 08/16/17 1442 <Electronically signed by Zane Sotelo MD> Date Zane Sotelo MD Cosigner Signature: Date (if applicable) CC: LIVER PROFILE Collected: 06/13/2017 Status: F Source: [facility] 11:52 AM [facility] REPOSITORY TYPE CODE TESTS RESULT OUT OF RANGE REFERENCE UNITS LAB L501.1500 6.4-8.2 g/dL Normal T PROT 7.5 LAB L501.1800 3.2-5.0 g/dL Normal ALB 3.8 LAB L501.1950 2.2-4.2 g/dL Normal GLOB 3.7 LAB L501.4100 15-37 U/L Normal AST 25 LAB L501.4305 45-117 U/L Low ALK P 39 LAB L501.4405 13-56 U/L Normal ALT 24 Result Comment: Please note revised ALT reference range effective 2017. LAB L501.4600 0.20-1.00 mg/dL Normal T BILI 0.30 LAB L501.4700 0.00-0.30 mg/dL Normal D BILI 0.12 Performed By: #### L500.3400, L500.4100 #### [facility] [address] [facility] [place], [address] LIPID PROFILE Collected: 06/13/2017 Status: F Source: [place] 11:52 AM [facility] REPOSITORY TYPE CODE TESTS RESULT OUT OF RANGE REFERENCE UNITS LAB L501.4900 200 mg/dL Normal CHOL 193 Result Comment: <200 mg/dL Desirable 200-240 mg/dL Borderline >240 mg/dL High Risk LAB L501.5000 mg/dL Normal TRIG 83 Result Comment: The drugs N-Acetylcysteine and Metamizole may falsely depress this assay. Serum Triglycerides Reference Interval Normal <150 mg/dL Borderline high 150 - 199 mg/dL High 200 - 499 mg/dL Very High > or = 500 mg/dL LAB L501.6400 mg/dL Normal HDL 75 Result Comment: The drugs N-Acetylcysteine and Metamizole may falsely depress this assay. Reference Range HDL <40 mg/dL Low HDL Cholesterol HDL >or= 60 mg/dL High HDL Cholesterol LAB L501.6500 0-130 mg/dL Normal LDL 101 LAB L501.6600 5-40 mg/dL Normal VLDL 17 Performed By: #### L500.3400, L500.4100 #### [facility] [address] [place], [address] ALLERGIES ALLERGIES DATE TYPE / CODE NAME / CODE REACTION SEVERITY SOURCE 03/13/2018 Drug No Known Unknown [facility] Allergy/4160 Allergies/F00 Hospital 25688(SNOMED 0358578(RXNOR Repository CT) M) ENCOUNTERS ENCOUNTERS ADMIT/DISCHARGE ACCOUNT NUMBER ADMITTING ENCOUNTER LOCATION SOURCE CLASS 04/13/2018 [id number] Ambulatory [facility] Repository 04/13/2018 [id number] Ambulatory [facility] ding:CLSP Repository 04/05/2018 [id number] Ambulatory [facility] ding:RAD Repository 04/05/2018/04/05/20 [id number] Ambulatory [facility]: [place] [facility] Repository 04/04/2018 [id number] Ambulatory [facility]MSBuilding: [facility] Repository 04/04/2018 [id number] Ambulatory [facility] ding:[facility]S Repository 03/30/2018 [id number] Ambulatory BMSBuilding: [place] [facility] Repository 03/30/2018 [id number] Ambulatory [facility] ding:[facility] Repository 03/13/2018/03/13/20 [id number] Ambulatory [facility]: [place] [facility] Repository 01/20/2018/01/21/20 [id number] Ambulatory [address] ding:OLAB [facility] Repository 08/16/2017/08/17/19 [id number] Ambulatory BMSBuilding: [place] [facility] Repository 08/15/2017 [id number] Ambulatory [facility]: [place] [facility] Repository 06/13/2017 [id number] Ambulatory [facility] ding:LAB Repository PAYERS PAYERS ENCOUNTER GUARANTOR PAYER SUBSCRIBER SOURCE 04/13/2018 YAA [id number] Primary Insurance:MMO YAA CASTORENAB: [place], MEDICAREPolicy [id number] [address]Lbz: Number: [facility] [id number] Repository () Date:1080-37-23AY [address] [address]KG: 04/13/2018 Secondary NOT GIVENUNK [place] Insurance:SELF PAY [facility] Number: Effective Repository Date:2018-04-13 04/13/2018 YAA Arcos [id number] Primary Insurance:MMO YAA Arcos ICEDOB: [place] SAEED R[place], MEDICAREPolicy [id number] [facility] [address]Qiz: Number: Hospital [id number] Repository (HP) Date:2876-28-37XR [address] [address]PH: 04/13/2018 Secondary NOT GIVENUNK [place] Insurance:SELF PAY Community [facility] Hospital Number: Effective Repository Date:2018-04-04 04/05/2018 YAA Arcos [id number] Primary Insurance:MAGGIEO YAA Arcos ICEDOB: [place] SAEED [place], MEDICAREPolicy [id number] [facility] [address]Pgd: Number: Hospital [id number] Repository (HP) Date:3691-98-68WY [address] [address]QH: 04/05/2018 Secondary NOT GIVENUNK [place] Insurance:SELF PAY [facility] Hospital Number: Effective Repository Date:2018-04-05 04/05/2018 YAA Arcos [id number] Primary Insurance:ALEXANDRA Arcos ICEDOB: [place] SAEED [place], MEDICAREPolicy [id number] [facility] [address]Obe: Number: Hospital [id number] Repository (HP) Date:0735-40-64JE [address] [address]PX: 04/05/2018 Secondary NOT GIVENUNK [place] Insurance:SELF PAY Community [facility] Hospital Number: Effective Repository Date:2018-04-05 04/04/2018 YAA Arcos [id number] Primary Insurance:MMO YAA Arcos ICEDOB: [place] SAEED [place], MEDICAREPolicy [id number] Community [place] [address]Mil: Number: Hospital [id number] Repository (HP) Date:7502-61-12OG [address] [place] [address]HD: 04/04/2018 Secondary NOT GIVENUNK [place] Insurance:SELF PAY Community [facility] Hospital Number: Effective Repository Date:2018-04-04 04/04/2018 YAA Arcos [id number] Primary Insurance:MMO YAA Arcos ICEDOB: [place] SAEED [place], MEDICAREPolicy [id number] [facility] [place] [address]Nuk: Number: Hospital [id number] Repository (HP) Date:0936-73-97CL [address] [place] [address]EF: 04/04/2018 Secondary NOT GIVENUNK [place] Insurance:SELF PAY [facility] Hospital Number: Effective Repository Date:2018-03-13 03/30/2018 YAA Arcos [id number] Primary Insurance:ALEXANDRA Arcos ICEDOB: [place] SAEED [place], MEDICAREPolicy [id number] [facility] [address]Gzr: Number: Hospital [id number] Repository (HP) Date:6015-29-26QA [address] [address]SE: 03/30/2018 Secondary NOT GIVENUNK [place] Insurance:SELF PAY Community [facility] Hospital Number: Effective Repository Date:2018-03-30 03/30/2018 YAA Arcos [id number] Primary Insurance:ALEXANDRA Arcos ICEDOB: [place] SAEED [place], MEDICAREPolicy [id number] [facility] [place] [address]Aap: Number: Hospital [id number] Repository (HP) Date:3882-37-95XQ [address] [address]GD: 03/30/2018 Secondary NOT GIVENUNK [place] Insurance:SELF PAY [facility] Hospital Number: Effective Repository Date:2018-03-13 03/13/2018 YAA Arcos [id number] Primary Insurance:MMO YAA Arcos ICEDOB: [place] DARLIN GONSALEZSTER, MEDICAREPolicy [id number] [place] [address]Vsd: Number: Hospital [id number] Repository (HP) Date:6022-51-88HT [facility] [address] [place] [address]YO: 03/13/2018 Secondary NOT GIVENUNK [place] Insurance:SELF PAY [facility] Number: Effective Repository Date:2018-03-10 01/20/2018 YAA Arcos ICEDOB: Primary YAA Arcos ICEDOB: [facility] [employer] [id number] Insurance:MEDICAL [id number] Foundation DARLIN PHELANOOSTYING, MUTUAL MEDICAREPolicy [address] Repository [place] [address]Nbx: Number: [place], [place] [id number] [address]Fkx: (330) (HP)Tel: (999) Date:2018-01-20 [id number] [phone] (WP) [id number] ()Tel: (000) Name:[facility] [phone] () [address], [place] [address]WY: 08/16/2017 YAA Arcos [id number] Primary Insurance:MMO YAA Arcos ICEDOB: Tormaikol SAHAER, MEDICAREPolicy [id number] [address]Haw: Number: Hospital [id number] Repository (HP) Date:3744-18-56TD [facility] [address], [place] [address]DG: 08/16/2017 Secondary NOT GIVENUNK [place] Insurance:SELF PAY [facility] Number: Effective Repository Date:2017-04-25 08/15/2017 Yaa Arcos [id number] Primary Insurance:MMO Yaa Arcos IceDOB: [place] Darlin Gonsalezster, MEDICAREPolicy [id number] [place] [address]Mzk: Number: Hospital [id number] Repository (HP) Date:7661-09-43NG [facility] [address], [place] [address]JQ: 08/15/2017 Secondary NOT GIVENUNK [place] Insurance:SELF PAY [facility] Number: Effective Repository Date:2017-08-15 06/13/2017 Yaa [id number] [place] Insurance[place] Yaa McintyreDOB: [place] Saeed RdWoo[address]in[address], MEDICAREPolicy [id number] [address]Bpb: Number: [facility] [id number] Repository (HP) Date:7193-27-92BZ [address], [place] [address]EQ: 06/13/2017 Secondary NOT GIVENUNK [place] Insurance:SELF PAY [facility] Number: Effective Repository Date:2017-06-13
== END ==
PROVIDERS: Family Provider Internal Medicine; PCP Internal Medicine; Referring Provider Internal Medicine Cardiovascular Disease; Visit Provider Internal Medicine Cardiovascular Disease
DX: I47.1 Supraventricular tachycardia (principal); I10 Essential (primary) hypertension; E78.5 Hyperlipidemia, unspecified; F32.9 Major depressive disorder, single episode, unspecified; F41.9 Anxiety disorder, unspecified; R94.39 Abnormal result of other cardiovascular function study; Z79.02 Long term (current) use of antithrombotics/antiplatelets; Z79.82 Long term (current) use of aspirin; Z79.899 Other long term (current) drug therapy; Z87.19 Personal history of other diseases of the digestive system; R06.09 Other forms of dyspnea
CPT/HCPCS: 36415; 80048; 85027; 85610; 85730; 93458; 99152; J7040; Q9967; C1769; C1894

== ENCOUNTER 2018-08-04 13:38 | Emergency (ER) | payer MEDICARE, SELFPAY ==
[2018-08-04 13:39] VITALS: BP 127/72; PULSE 98; RESP 16; TEMP 36.6; O2SAT 98; BMI 25.4
--- NOTE | 2018-08-04 14:37 | CT_ITS ---
STUDY: CT ABDOMEN AND PELVIS WITHOUT CONTRAST REASON FOR EXAM: Female, 68 years old. Left lower quadrant pain RADIATION DOSAGE (If Supplied By Facility): CTDIvol = ( 7.97 ) mGy, DLP = ( 372.17 ) mGycm TECHNIQUE: Transaxial images were obtained from the dome of the diaphragm to the symphysis pubis without oral contrast, and without intravenous contrast. Sagittal and coronal images were reconstructed. Individualized dose optimization techniques were used for this CT. COMPARISON: None. FINDINGS: The visualized lung bases are unremarkable. The visualized portions of the heart are within normal limits. Normal liver. Normal gallbladder and extrahepatic biliary system. Normal spleen. Normal pancreas. Normal bilateral adrenal glands. Normal right kidney. Normal left kidney. Normal visualized stomach. Normal small intestine. There is diverticulosis, with thickening of the sigmoid colon wall, and pericolonic inflammation changes consistent with acute diverticulitis. The appendix is visualized and appears normal. Normal abdominal aorta. Normal inferior vena cava. Normal retroperitoneum. Normal urinary bladder. Normal abdominal wall. There are diffuse degenerative changes of the visualized lumbar spine. CT/Abdomen/Pelvis without Cont IMPRESSION: Sigmoid diverticulitis. There is no abscess. There is no free air. Electronically Signed: Gomez Avelar, at 15:43 EDT Tel , Service support ,
--- NOTE | 2018-08-04 14:38 | ED.DCSUM_ITS ---
- ER Visit Summary Date of Service: 08/04/18 Chief Complaint: Left lower quadrant pain History of Present Illness: The patient is a 68 F intermittent left lower quadrant abdominal pain over the past week. Pain worse with bowel movements. No blood in stools. No fevers. No nausea vomiting. History of similar with diverticulitis 2 years ago. States did have a follow-up colonoscopy push things by Dr. Kauffman. No current pain illness palpated. No urine symptoms. Tolerating oral fluids. Physical Examination: General: Alert and oriented ?3, no acute distress HEENT: Normocephalic, atraumatic. Moist mucosa membranes Neck: supple, nontender. Cardiovascular: Regular rate and rhythm, no murmurs Respiratory: Normal breath sounds, symmetric, no distress Abdomen: Soft, mild left lower quadrant suprapubic tenderness without guarding or rebound. Nondistended Extremities: Nontender, no edema, pulses intact ?4 Neuro: no focal neurological deficits. Test Results: White count 8.8, creatinine 1.37. CT scan abdomen pelvis: Sigmoid diverticulitis with no complications. Emergency Department Course and Treatment: Patient nonsurgical abdomen, slight tenderness to deep palpation. She declined any pain medicines. Workup does confirm sigmoid diverticulitis with no complications. Started on Cipro Flagyl. She remained stable. She was last scoped by Dr. Kauffman who is currently not in the area. She is given follow-up with Dr. Goodman transportation supervisor for surgery for follow-up. Signs and symptoms discussed with the patient's return. Use Tylenol as needed. She does not drink alcohol. Treatment Plan: [] Disposition: Discharge Impression: Sigmoid diverticulitis This note was generated with [employer] dictation software. It may contain incorrect words, spelling, and punctuation that were not noted in review of the chart prior to signing ED Disposition - Plan for ED Patient: Disposition: Home or Assisted Living Diagnosis: Sigmoid diverticulitis Instructions: ED Diverticulitis Prescriptions: Metronidazole [Flagyl] 500 mg PO Q8H #20 tablet Ciprofloxacin [Cipro] 500 mg PO BID #20 tablet Referrals: Care Physician,No Primary [Primary Care Provider] - Zane Goodman MD [STAFF PHYSICIAN] - 1-2 Weeks
[2018-08-04 14:57] LABS: Absolute Lymphocyte Count 1.37 X10^3/ul (0.83-4.51); Absolute Neutrophil Count 6.7 X10^3/uL (2.0-7.7); Basophil# 0.05 X10^3/uL; Basophil% 0.6 % (0-1); Eosinophil# 0.08 X10^3/uL; Eosinophils% 0.9 % (0-5); Hematocrit 40.9 % (37-47); Hemoglobin 13.3 g/dl (12.0-15.0); Lymphocyte # 1.37 X10^3/ul (4.0); Lymphocyte % 15.5 % (19-41); Mean Corp Hgb Conc 32.5 g/gl (32-36); Mean Corpuscular Volume 92.3 fL (81-99); Mean Platelet Vol. 9.7 fl (6.2-12.0); Monocyte# 0.62 X10^3/uL; Neutrophil # 6.69 X10^3/uL (2.7-7.7); Neutrophil % 75.9 % (47-70); POSITIVE COUNT NO; POSITIVE DIFFERENTIAL NO; POSITIVE MORPHOLOGY NO; Platelet Count 307 K/mm3 (150-450); RBC Distribution Width CV 13.5 % (11.6-14.6); RBC Distribution Width SD 45.3 fl (35.1-43.9); Red Blood Count 4.43 M/mm3 (4.2-5.4); White Blood Count 8.8 K/mm3 (4.4-11.0)
[2018-08-04 15:07] LABS: Anion Gap 5 (5-15); BUN 23 mg/dL (7-18); BUN/Creat Ratio 16.8 RATIO (10-20); Chloride 105 mmol/L (98-107); Creatinine, Serum 1.37 mg/dL (0.55-1.02); EST Glomerular Filtration Rate 41 mL/min (>60); Est Glom Filt Rate - Afr Amer 49 mL/min (>60); Estimated Creatinine Clearance 34.38 ml/min; Glucose 94 mg/dL (74-106); Potassium 3.6 mmol/L (3.5-5.1); Sodium Level 138 mmol/L (136-145)
[2018-08-04] MEDS: Ciprofloxacin 500 MG Tablet PO (16:14)
[2018-08-04] MEDS: metroNIDAZOLE 500 MG Tablet PO (16:14)
[2018-08-04 16:16] VITALS: BP 106/82; PULSE 84; RESP 14; O2SAT 97
--- NOTE | 2018-08-07 15:30 | CASEMGMT ---
Attempted to call patient per ER Hospital Visit f/u. No answer, unable to leave VM as unable to identify Correct VM to patient. Natalie Stoddard RNCM
== END 2018-08-04 16:32 | disposition home or self-care (01) ==
PROVIDERS: Emergency Provider Emergency Medicine
DX: K57.32 Diverticulitis of large intestine without perforation or abscess without bleeding (principal); I10 Essential (primary) hypertension; I47.1 Supraventricular tachycardia; Z79.82 Long term (current) use of aspirin; Z79.899 Other long term (current) drug therapy
CPT/HCPCS: 74176; 80048; 85025; 99283; A4216

== ENCOUNTER → 2018-08-10 14:05 | Outpatient (CLI) | payer MEDICARE, SELFPAY ==
[2018-08-04 13:39] VITALS: BMI 25.4
[2018-08-10 14:59] LABS: Absolute Lymphocyte Count 1.84 X10^3/ul (0.83-4.51); Absolute Neutrophil Count 7.6 X10^3/uL (2.0-7.7); Basophil# 0.06 X10^3/uL; Basophil% 0.6 % (0-1); Eosinophil# 0.11 X10^3/uL; Eosinophils% 1.1 % (0-5); Hemoglobin 14.9 g/dl (12.0-15.0); Lymphocyte # 1.84 X10^3/ul (4.0); Lymphocyte % 17.8 % (19-41); Mean Corp Hgb Conc 33.1 g/gl (32-36); Mean Corpuscular Hgb 30.5 pg (27.0-32.0); Mean Platelet Vol. 9.9 fl (6.2-12.0); Monocyte# 0.78 X10^3/uL; Monocyte% 7.5 % (0-10); Neutrophil # 7.55 X10^3/uL (2.7-7.7); Neutrophil % 72.9 % (47-70); POSITIVE COUNT NO; POSITIVE DIFFERENTIAL NO; POSITIVE MORPHOLOGY NO; Platelet Count 445 K/mm3 (150-450); RBC Distribution Width SD 47.2 fl (35.1-43.9); Red Blood Count 4.89 M/mm3 (4.2-5.4); White Blood Count 10.4 K/mm3 (4.4-11.0)
[2018-08-10 15:06] LABS: ALB/GLOB Ratio 0.9 RATIO (0.9-2.4); AST(SGOT) 22 U/L (15-37); Alanine Aminotransfer ALT/SGPT 17 U/L (13-56); Albumin, Serum 3.4 g/dL (3.2-5.0); Alkaline Phosphatase 51 U/L (45-117); Anion Gap 4 (5-15); BUN 20 mg/dL (7-18); BUN/Creat Ratio 15.4 RATIO (10-20); Chloride 105 mmol/L (98-107); EST Glomerular Filtration Rate 43 mL/min (>60); Est Glom Filt Rate - Afr Amer 52 mL/min (>60); Globulin 3.9 g/dL (2.2-4.2); Glucose 106 mg/dL (74-106); Potassium 3.5 mmol/L (3.5-5.1); Protein, Total 7.3 g/dL (6.4-8.2); Sodium Level 138 mmol/L (136-145)
== END ==
PROVIDERS: Visit Provider Surgery
DX: R10.32 Left lower quadrant pain (principal)
CPT/HCPCS: 36415; 80053; 85025

== ENCOUNTER 2018-09-02 09:54 | Emergency (ER) | payer MEDICARE, SELFPAY ==
[2018-08-10 14:45] VITALS: BMI 25.4
[2018-09-02 09:55] VITALS: BP 106/70; PULSE 81; RESP 16; TEMP 36.9; O2SAT 94; BMI 26.4
--- NOTE | 2018-09-02 10:25 | ED.VISSUMM ---
- ER Visit Summary Date of Service: 09/02/18 Chief Complaint: Hives, lower lip swelling History of Present Illness: The patient is a 68 F presenting with rash which started this morning. She complains of itching all over. She complains of lower lip swelling. Denies tongue swelling or sensation of throat swelling. Denies difficulty breathing or swallowing. She is currently taking Cipro and Flagyl. She is on her second 10-day course of Cipro and Flagyl for diverticulitis. She states her diverticulitis has improved. She only has 1-2 days left. Denies any other known irritants. Denies new foods, detergents, soaps, pets. Denies other complaints. Physical Examination: Vitals are stable. Patient is afebrile. Alert no acute distress. HEENT exam mild lower lip swelling. No tongue swelling. No pharyngeal edema. No mucous membrane lesions. Neck is supple. Lungs are clear and equal bilaterally. Heart is regular rate and rhythm. Abdomen is soft nontender nondistended. Extremities are unremarkable. Skin is warm and dry. Diffuse urticaria No focal neurologic deficit. Remainder of exam is unremarkable. Emergency Department Course and Treatment: Patient was given Solu-Medrol, Benadryl IV. Patient was observed in the ED. She is feeling improved. She has no tongue swelling or pharyngeal edema. She is able to lay flat without difficulty. She is given prescription for short course of prednisone. She is advised to discontinue Cipro and Flagyl. Advised to follow-up with Dr. Sanches reproduction technician for no doc. Advised return to ED if worsening complaints. Disposition: Discharge home Impression: Allergic reaction This note was generated with [employer] dictation software. It may contain incorrect words, spelling, and punctuation that were not noted in review of the chart prior to signing ED Disposition - Plan for ED Patient: Instructions: ED Allergic Reaction General Other Prescriptions: Prednisone [Deltasone] 40 mg PO DAILY #10 tablet Referrals: Shane Sanches MD [STAFF PHYSICIAN] -
[2018-09-02] MEDS: MethylPREDNISolone 125 MG/2 ML Vial IV (10:28)
--- NOTE | 2018-09-02 10:28 | ED.DCSUM_ITS ---
- ER Visit Summary Date of Service: 09/02/18 Chief Complaint: Hives, lower lip swelling History of Present Illness: The patient is a 68 F presenting with rash which started this morning. She complains of itching all over. She complains of lower lip swelling. Denies tongue swelling or sensation of throat swelling. Denies difficulty breathing or swallowing. She is currently taking Cipro and Flagyl. She is on her second 10-day course of Cipro and Flagyl for diverticulitis. She states her diverticulitis has improved. She only has 1-2 days left. Denies any other known irritants. Denies new foods, detergents, soaps, pets. Denies other complaints. Physical Examination: Vitals are stable. Patient is afebrile. Alert no acute distress. HEENT exam mild lower lip swelling. No tongue swelling. No pharyngeal edema. No mucous membrane lesions. Neck is supple. Lungs are clear and equal bilaterally. Heart is regular rate and rhythm. Abdomen is soft nontender nondistended. Extremities are unremarkable. Skin is warm and dry. Diffuse urticaria No focal neurologic deficit. Remainder of exam is unremarkable. Emergency Department Course and Treatment: Patient was given Solu-Medrol, Benadryl IV. Patient was observed in the ED. She is feeling improved. She has no tongue swelling or pharyngeal edema. She is able to lay flat without difficulty. She is given prescription for short course of prednisone. She is advised to discontinue Cipro and Flagyl. Advised to follow-up with Dr. Sanches production sorter for no doc. Advised return to ED if worsening complaints. Disposition: Discharge home Impression: Allergic reaction This note was generated with [employer] dictation software. It may contain incorrect words, spelling, and punctuation that were not noted in review of the chart p rior to signing ED Disposition - Plan for ED Patient: Instructions: ED Allergic Reaction General Other Prescriptions: Prednisone [Deltasone] 40 mg PO DAILY #10 tablet Referrals: Shane Sanches MD [STAFF PHYSICIAN] -
[2018-09-02] MEDS: DiphenhydrAMINE 50 MG/ML Syringe 25 MG IV (10:29)
--- NOTE | 2018-09-02 11:53 | ED.DEP ---
ED Disposition - Plan for ED Patient: Instructions: ED Allergic Reaction General Other Prescriptions: Prednisone [Deltasone] 40 mg PO DAILY #10 tablet Referrals: Shane Sanches MD [STAFF PHYSICIAN] -
[2018-09-02 12:19] VITALS: RESP 18; O2SAT 98
== END 2018-09-02 12:35 | disposition home or self-care (01) ==
PROVIDERS: Emergency Provider Emergency Medicine
DX: L50.0 Allergic urticaria (principal); R22.0 Localized swelling, mass and lump, head; I10 Essential (primary) hypertension; I47.1 Supraventricular tachycardia; F32.9 Major depressive disorder, single episode, unspecified; Z79.82 Long term (current) use of aspirin; Z79.899 Other long term (current) drug therapy
CPT/HCPCS: 96374; 96375; 99283; A4216

== ENCOUNTER 2018-09-05 13:18 | Inpatient (IN) | payer MEDICARE, SELFPAY ==
[2018-09-05] VITALS (26 sets, daily range): BP systolic 49–139; BP diastolic 32–88; PULSE 59–99; RESP 12–20; TEMP 36–36.3; O2SAT 95–100; BMI 25.7; BMI 24.8
--- NOTE | 2018-09-05 14:03 | EKG12_ITS ---
Test Reason : HYPOTENSION Blood Pressure : / mmHG Vent. Rate : 069 BPM Atrial Rate : 069 BPM P-R Int : 178 ms QRS Dur : 080 ms QT Int : 408 ms P-R-T Axes : 029 -01 024 degrees QTc Int : 437 ms Normal sinus rhythm Normal ECG Confirmed by IVETTE MEJIA ([id number]), associate entertainment editor EMILY DEVINE ([id number]) on 09/07/2018 10:53:11 AM Referred By: Caterina Barber Confirmed By:IVETTE MEJIA
--- NOTE | 2018-09-05 14:14 | RAD_ITS ---
STUDY: X-RAY CHEST REASON FOR EXAM: Female, 68 years old. Dizziness. TECHNIQUE: Single AP portable view of the chest. COMPARISON: April 05, 2018. FINDINGS: Borderline cardiomegaly. Pulmonary vascularity unremarkable. Aorta calcified. Valve calcifications. No focal patchy airspace opacities. No pleural effusions. Slightly elevated right hemidiaphragm. Upper abdomen unremarkable. Osseous structures intact. No pneumothorax. Degenerative changes of the shoulders and spine. RAD/Chest 1 View (Portable) IMPRESSION: No acute cardiopulmonary findings Electronically Signed: Eliseo Raza DO at 14:45 EDT Tel , Service support ,
[2018-09-05 14:18] LABS: International Normalized Ratio 1.1; Prothrombin Time (Protime)PT. 13.5 SECONDS (11.7-14.9)
[2018-09-05 14:19] LABS: Partial Thromboplast Time 26.9 Seconds (24.1-36.2)
[2018-09-05 14:20] LABS: Absolute Neutrophil Count 6.1 X10^3/uL (2.0-7.7); Basophil# 0.05 X10^3/uL; Basophil% 0.5 % (0-1); Eosinophil# 0.07 X10^3/uL; Eosinophils% 0.7 % (0-5); Hematocrit 39.5 % (37-47); Hemoglobin 12.9 g/dl (12.0-15.0); Lymphocyte % 30.8 % (19-41); Mean Corp Hgb Conc 32.7 g/gl (32-36); Mean Corpuscular Hgb 29.3 pg (27.0-32.0); Mean Corpuscular Volume 89.8 fL (81-99); Mean Platelet Vol. 10.8 fl (6.2-12.0); Monocyte# 0.76 X10^3/uL; Monocyte% 7.6 % (0-10); Neutrophil # 6.06 X10^3/uL (2.7-7.7); Neutrophil % 60.2 % (47-70); Platelet Count 359 K/mm3 (150-450); RBC Distribution Width SD 49.5 fl (35.1-43.9); White Blood Count 10.1 K/mm3 (4.4-11.0)
[2018-09-05 14:24] LABS: D-Dimer Quantitative (DVT/PE) 0.53 FEU/ug/m (0.27-0.49)
--- NOTE | 2018-09-05 14:24 | ED.RN ---
D-DIMER 0.53 PER LAB, MD AND PRIMARY RN NOTIFIED
[2018-09-05 14:28] LABS: ALB/GLOB Ratio 0.9 RATIO (0.9-2.4); AST(SGOT) 23 U/L (15-37); Alanine Aminotransfer ALT/SGPT 16 U/L (13-56); Albumin, Serum 3.1 g/dL (3.2-5.0); Alkaline Phosphatase 37 U/L (45-117); Anion Gap 5 (5-15); BUN 20 mg/dL (7-18); BUN/Creat Ratio 15.5 RATIO (10-20); Calcium,Total 9.2 mg/dL (8.5-10.1); Chloride 105 mmol/L (98-107); Creatinine, Serum 1.29 mg/dL (0.55-1.02); EST Glomerular Filtration Rate 43 mL/min (>60); Est Glom Filt Rate - Afr Amer 53 mL/min (>60); Estimated Creatinine Clearance 35.04 ml/min; Globulin 3.4 g/dL (2.2-4.2); Glucose 144 mg/dL (74-106); Potassium 3.7 mmol/L (3.5-5.1); Protein, Total 6.5 g/dL (6.4-8.2); Sodium Level 136 mmol/L (136-145)
[2018-09-05 14:29] LABS: POSITIVE COUNT NO; POSITIVE DIFFERENTIAL NO; POSITIVE MORPHOLOGY NO
--- NOTE | 2018-09-05 15:10 | CT_ITS ---
STUDY: CTA CHEST REASON FOR EXAM: Female, 68 years old. ELEV D DIMER, DIZZY, VERY HYPOTENSIVE TODAY RADIATION DOSAGE (If Supplied By Facility): CTDIvol = ( 13.11 ) mGy, DLP = ( 351.42 ) mGycm TECHNIQUE: The examination was performed with the intravenous administration of 75 IV Isovue 370. Post-processing of the angiographic images was performed, with multiplanar reformation and 3D reconstruction. Individualized dose optimization techniques were used for this CT. COMPARISON: None. FINDINGS: Normal enhancement of the main pulmonary artery and right and left pulmonary arteries. Normal enhancement of the bilateral peripheral pulmonary arteries. There is no demonstrated pulmonary embolism. No aortic aneurysm. There is wasi-ct-nsnbywdd aortic coarctation beyond the left subclavian artery. Distal aortic arch proximal to the area of narrowing measures 2.3 cm diameter. Greatest cross-sectional dimension at the coarctation is 1.9 cm. Greatest diameter just beyond the coarctation is 2.6 cm. There is no demonstrated aortic dissection. Normal heart and pericardium. Normal mediastinum. Normal hilar regions. Normal visualized trachea and bronchi. The lungs are hyper expanded, with flattening of the hemidiaphragms. Mild parenchymal density seen in both posterior costophrenic angles, most consistent with scarring and/or subsegmental atelectasis. Lungs are otherwise clear. Normal pleura. There are no pleural effusions. Normal chest wall structures. There are degenerative changes of thoracic spine. Limited views through the upper abdomen show distended fecal filled loops of bowel in the left upper quadrant. Ileus or obstruction not excluded. There is also abnormal gallbladder. Cholelithiasis is not excluded. CT/CTA Chest W/WO Contrast IMPRESSION: No evidence for PE. Mild to moderate aortic coarctation. COPD. Atelectasis or scarring in the posterior lung bases. Electronically Signed: Jose Jacobo MD at 16:07 EDT , Service support ,
[2018-09-05 15:17] LABS: Lactic Acid 1.7 mmol/L (0.4-2.0)
[2018-09-05] MEDS: DOPamine IV 800 MG/250 ML IV.SOLN. 6.379 MG CONT INF (15:20)
--- NOTE | 2018-09-05 15:27 | ED.RN ---
pt transported to imaging.
--- NOTE | 2018-09-05 16:04 | ED.VISSUMM ---
- ER Visit Summary Date of Service: 09/05/18 Chief Complaint: Low blood pressure History of Present Illness: The patient is a 68 F who presents with low blood pressure that began today. Patient states she has been having dizziness today that is worse with standing. Patient states she has been having difficulty walking and talking due to feeling dizzy. Patient states she has been seeing spots in her eyes when she stands up. Was recently diagnosed with diverticulitis and was started on Cipro and Flagyl. Patient had an allergic reaction to the Cipro or Flagyl. Patient was recently started on steroids because of this. Patient stopped her Cipro and Flagyl and her abdominal pain was improving. Physical Examination: Vital signs are stable except for blood pressure 49/32. Heart rate and respiratory rate were normal. Oral mucosa is pink and moist. Neck is supple. Trachea is midline. There is no JVD noted. Heart was regular rate and rhythm. Lungs are clear and equal bilateral. Abdomen is soft. Bowel sounds are normal. There is no tenderness. There is no guarding noted. Cranial nerves II through XII are intact. There are no focal motor or sensory deficits noted. Test Results: EKG showed normal sinus rhythm with a rate of 69. There are no acute ST or T wave changes. This was unchanged compared to previous EKG dated 04/25/2016. CBC was normal. Basic metabolic profile showed a creatinine of 1.29 and a BUN of 20. These are consistent with prior results. D-dimer was elevated at 0.53. Troponin was obtained. Emergency Department Course and Treatment: Patient was given IV fluids. Patient was started on dopamine because her blood pressure would only improve to 60 systolic. Patient was started on dopamine. Patient's blood pressure improved to 90 systolic. Patient was feeling better on reevaluation. Patient was also given a dose of Solu-Cortef. She denies being on chronic steroids. Case was discussed with the hospitalist. She will admit the patient to ICU. She requests a PICC line be placed. The PICC line team will be consulted for placement. Disposition: Admit to ICU Impression: Hypotension This note was generated with [employer] dictation software. It may contain incorrect words, spelling, and punctuation that were not noted in review of the chart prior to signing ED Disposition - Plan for ED Patient: Disposition: Acute Care Hospital [facility] Diagnosis: Hypotension Referrals: Care Physician,No Primary [Primary Care Provider] -
--- NOTE | 2018-09-05 16:06 | ED.RN ---
straight cath used to get urine sample due to bp 75/47.
--- NOTE | 2018-09-05 16:09 | ED.DCSUM_ITS ---
- ER Visit Summary Date of Service: 09/05/18 Chief Complaint: Low blood pressure History of Present Illness: The patient is a 68 F who presents with low blood pressure that began today. Patient states she has been having dizziness today that is worse with standing. Patient states she has been having difficulty walking and talking due to feeling dizzy. Patient states she has been seeing spots in her eyes when she stands up. Was recently diagnosed with diverticulitis and was started on Cipro and Flagyl. Patient had an allergic reaction to the Cipro or Flagyl. Patient was recently started on steroids because of this. Patient stopped her Cipro and Flagyl and her abdominal pain was improving. Physical Examination: Vital signs are stable except for blood pressure 49/32. Heart rate and respiratory rate were normal. Oral mucosa is pink and moist. Neck is supple. Trachea is midline. There is no JVD noted. Heart was regular rate and rhythm. Lungs are clear and equal bilateral. Abdomen is soft. Bowel sounds are normal. There is no tenderness. There is no guarding noted. Cranial nerves II through XII are intact. There are no focal motor or sensory deficits noted. Test Results: EKG showed normal sinus rhythm with a rate of 69. There are no acute ST or T wave changes. This was unchanged compared to previous EKG dated 04/25/2016. CBC was normal. Basic metabolic profile showed a creatinine of 1.29 and a BUN of 20. These are consistent with prior results. D-dimer was elevated at 0.53. Troponin was obtained. Emergency Department Course and Treatment: Patient was given IV fluids. Patient was started on dopamine because her blood pressure would only improve to 60 systolic. Patient was started on dopamine. Patient's blood pressure improved to 90 systolic. Patient was feeling better on reevaluation. Patient was also given a dose of Solu-Cortef. She denies being on chronic steroids. Case was discussed with the hospitalist. She will admit the patient to ICU. She requests a PICC line be placed. The PICC line team will be consulted for placement. Disposition: Admit to ICU Impression: Hypotension This note was generated with [employer] dictation software. It may contain incorrect words, spelling, and punctuation that were not noted in review of the chart prior to signing ED Disposition - Plan for ED Patient: Disposition: Acute Care Hospital [facility] Diagnosis: Hypotension Referrals: Care Physician,No Primary [Primary Care Provider] -
[2018-09-05 16:10] LABS: Mucous, Urine 0 SEEN /hpf (<or=2+); Red Blood Cells-Urine 0 SEEN /hpf (0-5); Squamous Epithelial Cells - UA 0 SEEN /hpf (5-10); White Blood Cells 0 SEEN /hpf (0-5)
[2018-09-05 16:22] LABS: Color, Urine Yellow (Yellow); Glucose, Dipstick Normal (Normal); Ketone-Dipstick Negative (Negative); Leukocyte Esterase-Dipstick Negative /ul (Negative); Nitrite-Dipstick Positive (Negative); Occult Blood-Urine Negative /ul (Negative); Protein-Dipstick Negative (Negative); Specific Gravity, Urine 1.005 (1.002-1.030); Urine Bilirubin Dipstick Negative (Negative); Urine Clarity Clear (Clear); Urine Urobilinogen Normal (Normal)
[2018-09-05 16:42] LABS: Bacteria 3+ /hpf (None Seen)
[2018-09-05] MEDS: Hydrocortisone Sod Succinate 100 MG/2 ML Vial IV (17:21)
--- NOTE | 2018-09-05 18:06 | PCM.HP.STD ---
Problem List (1) Hypotension Status: Acute Qualifiers: Hypotension type: unspecified hypotension type Qualified Code(s): I95.9 - Hypotension, unspecified (2) Angioedema Status: Chronic (3) Hyperlipidemia Status: Chronic Qualifiers: Hyperlipidemia type: pure hypercholesterolemia Qualified Code(s): E78.00 - Pure hypercholesterolemia, unspecified; E78.0 - Pure hypercholesterolemia (4) Hypertension Status: Chronic Qualifiers: Hypertension type: essential hypertension Qualified Code(s): I10 - Essential (primary) hypertension (5) SVT (supraventricular tachycardia) Status: Chronic History of Present Illness Date of Admission: 09/05/18 Chief Complaint: Lightheadedness, dizziness The patient is a 68 y/o F w/ PMHx: HTN, HLD, CKD stage III, Hx SVT following w/ Cardiology, Depression and Anxiety with history of recent diverticulitis treatment ~ 3 weeks prior with initial course two antibiotics presumed cipro and flagyl x 10 day course without marked improvement with repeat course given and nearing completion with only 1 day left of treatment patient with improvement of abdominal discomfort, nausea, loose stools had then onset generalized hives and swelling of her lip with discontinuation of this regimen and initiation on prednisone therapy who now presents to the [facility] ED on 09/05/18 with history of onset at 11:30 am lightheadedness and dizziness, noting spots occasionally in her vision prompting ED evaluation. She noted improvement in the ED following improvement of BP. Work-up in the ED included T 96.8, heart rate 79, initial BP 49/32, 2L NS immediately administered but only improved to SBP 63/47, RR 14, 95% on RA, patient initiated on DA drip w/ repeat BPs improving, 91/58 upon ED evaluation, CBC with WBC 10.1, hemoglobin 12.9, platelets are scan without shift, unremarkable coags, d-dimer 0.53, CMP w/ BUN/Cr 20/1.29, glucose 144, LA 1.7, trop < 0.015, EKG without any evidence of acute ischemia, eventual UA resulted w/ positive nitrite, 3+ bacteria although no market urine WBC with urine culture requested, blood culture x2 pending per ED, chest x-ray with no acute cardiopulmonary findings, CTPA with no evidence for acute PE, mild to moderate aortic coarctation, chronic COPD type changes with atelectasis versus scarring in the posterior lung bases. Past Medical History Past Medical History (Chronic Problems): Chronic Problems (Last Reviewed 08/17/18 @ 13:36 by Jocelyn Juarez) Angioedema (Chronic) History of left heart catheterization (Chronic 04/13/18) Normal coronary arteries, EF 75% per [facility] Dr. Sotelo [facility] Hyperlipidemia (Chronic) Hypertension (Chronic) SVT (supraventricular tachycardia) (Chronic) Medical History: Medical History (Last Reviewed 08/17/18 @ 13:36 by Jocelyn Juarez) Dyspnea on exertion (Acute) R06.09 Abnormal stress echo (Acute) R94.39 Hyperlipidemia (Chronic) E78.5 Hypertension (Chronic) I10 SVT (supraventricular tachycardia) (Chronic) I47.1 Anxiety and depression F41.9, F32.9 Diverticulitis K57.92 Allergies bacitracin [From Neosporin ([id number])] Adverse Reaction (Verified 09/02/18 09:55) Rash neomycin [From Neosporin ([id number])] Adverse Reaction (Verified 09/02/18 09:55) Rash polymyxin B [From Neosporin ([id number])] Adverse Reaction (Verified 09/02/18 09:55) Rash Home Medications: Ambulatory Orders Medication Instructions Recorded Fenofibrate [Tricor] 145 mg PO DAILY 04/23/16 Quinapril/Hydrochlorothiazide 1 tab PO DAILY 04/23/16 [Accuretic 20-12.5 MG Tablet] sertraline 100 mg tablet 200 mg PO DAILY tab 03/13/18 Aspirin [Aspir-Low] 81 mg PO DAILY 09/05/18 Diltiazem CD [Cardizem CD] 120 mg PO DAILY 09/05/18 Prednisone [Deltasone] 40 mg PO DAILY 09/05/18 Surgical History: Surgical History (Last Reviewed 08/17/18 @ 13:36 by Jocelyn Juarez) History of left heart catheterization (Chronic) Onset Date: 04/13/18 Z98 Normal coronary arteries, EF 75% per [facility] Dr. Sotelo [facility] H/O sinus surgery Z98.890 H/O tubal ligation Z98.51 History of bunionectomy of left great toe Z98.890 History of carpal tunnel release Z98.890 History of cataract surgery Z98.49 Surgical History: - - Bilateral TMJ, bilateral carpal tunnel surgery, left cataract surgery, diplopia surgery x2, bilateral tubal ligation, left bunionectomy, removal of toenail secondary to severe fungal infection. 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 Maternal Family History: Family History (Last Reviewed 08/17/18 @ 13:36 by Jocelyn Juarez) Mother CVA (cerebral vascular accident) Myocardial infarction Brother CAD (coronary artery disease) Father CAD (coronary artery disease) History Items: - - Patient notes a maternal family history of heart disease, diabetes as well as stroke, age 73. Sibling Family History: Family History (Last Reviewed 08/17/18 @ 13:36 by Jocelyn Juarez) Mother CVA (cerebral vascular accident) Myocardial infarction Brother CAD (coronary artery disease) Father CAD (coronary artery disease) History Items: - - Patient notes a history of a brother with history of heart disease, status post CABG, recently passed ~ 1 week prior to current presentation secondary to history of a fall with unfortunate brain bleed. Review of Systems Constitutional: Reports: Malaise, Weakness, Fatigue. Denies: Chills, Fever, Weight Change HEENT: Reports: Visual Changes. Denies: Head Aches, Sinus Congestion, Sinus Drainage Cardiovascular: Reports: Light Headedness. Denies: Chest Pain, Chest Pressure, Chest Tightness, Orthopnea, Palpitations, Syncope Respiratory: Denies: Cough, Shortness of Breath, Shortness of breath at rest, Shortness of breath upon exertion, Sputum production Gastrointestinal: Reports: Abdominal Pain - Recent diverticulitis, pain resolved now., Diarrhea - Improving.. Denies: Nausea, Vomiting Genitourinary: Denies: Dysuria Musculoskeletal: Reports: Joint Pain. Denies: Joint Tenderness Skin: Denies: Rash, Wounds Neurological: Denies: Numbness, Tingling, Focal weakness Psychiatric: Reports: Anxiety, Depression. Denies: Homicidal Ideations, Suicidal Ideations Hematologic/ Lymphatic: Denies: Easy Bruising, Easy Bleeding VTE Information - Inpt Only VTE Present on Admission: No VTE Mechan Device Prophylaxis: SCD's VTE Pharm Prophylaxis ordered?: Yes Patient Problems: Active and Suspected Problems (Last Reviewed 08/17/18 @ 13:36 by Jocelyn Juarez) Hypotension (Acute) Subjective: Seated upright in ED bed, fatigued appearance but no acute complaints otherwise. States she is feeling improved, no lightheadedness or dizziness or vision changes currently. Objective: Physical Examination: General: awake, alert, oriented x 3 and cooperative, seated upright in the ED bed in no apparent distress, mildly fatigued appearance, denies any lightheadedness, dizziness or vision changes at this time. Skin: normal color, turgor, no icterus, cyanosis. HEENT: AT/NC, EOMI, PERRLA, mildly dry MM, no carotid bruits or JVD noted. Lungs: CTA bilaterally, moderate effort, mild decrease BL bases, no rales, ronchi or wheezing. Heart: Regular rate and rhythm; no gallop, rub audible. Abdomen: soft, NTTP, ND, normal BS, no HSM. Extremities: no cyanosis, clubbing, or edema. Neurological: patient awake, alert, oriented x 3; cognitive function intact; pupils equally reactive to light and accomodation; cranial nerves II-XII grossly normal, moving all 4 extremities, no focal deficits, strength moderately globally decreased secondary to acute presentation. Psychiatric: affect appears fatigued, no acute evidence of depressive or anxiety feelings. - Physical Exam Vital Signs Temp Pulse Resp BP Pulse Ox 96.8 F L 71 18 88/67 L 97 09/05/18 13:19 09/05/18 17:04 09/05/18 17:04 09/05/18 17:04 09/05/18 17:04 Oxygen Flow Rate (L/min) 2 Oxygen Delivery Method Nasal Cannula Weight: 150 lb Body Mass Index (BMI) 25.7 Laboratory Tests Past 24 Hrs 09/05/18 09/05/18 09/05/18 13:32 13:37 13:37 WBC 10.1 RBC 4.40 Hgb 12.9 Hct 39.5 MCV 89.8 MCH 29.3 MCHC 32.7 RDW 15.0 H RDW Differential 49.5 H Plt Count 359 MPV 10.8 Immature Gran % (Auto) 0.200 Neut % (Auto) 60.2 Lymph % (Auto) 30.8 [place] % (Auto) 7.6 Eos % (Auto) 0.7 Baso % (Auto) 0.5 Absolute Neuts (auto) 6.1 Absolute Lymphs (auto) 3.10 Total Counted Not Reportable PT 13.5 INR 1.1 APTT 26.9 D-Dimer Quant (PE/DVT) 0.53 H* Sodium Potassium Chloride Carbon Dioxide Anion Gap BUN Creatinine Estim Creat Clear Calc Est GFR (MDRD) Af Amer Est GFR (MDRD) Non-Af BUN/Creatinine Ratio Glucose Lactic Acid Calcium Total Bilirubin AST ALT Alkaline Phosphatase Troponin I < 0.015 Total Protein Albumin Globulin Albumin/Globulin Ratio Urine Color Urine Clarity Urine pH Ur Specific [place] Urine Protein Urine Glucose (UA) Urine Ketones Urine Occult Blood Urine Nitrite Urine Bilirubin Urine Urobilinogen Ur Leukocyte Esterase Urine RBC Urine WBC Ur Squamous Epith Cells Urine Bacteria Urine Mucus 09/05/18 09/05/18 09/05/18 13:37 14:30 16:03 WBC RBC Hgb Hct MCV MCH MCHC RDW RDW Differential Plt Count MPV Immature Gran % (Auto) Neut % (Auto) Lymph % (Auto) [place] % (Auto) Eos % (Auto) Baso % (Auto) Absolute Neuts (auto) Absolute Lymphs (auto) Total Counted PT INR APTT D-Dimer Quant (PE/DVT) Sodium 136 Potassium 3.7 Chloride 105 Carbon Dioxide 26.0 Anion Gap 5 BUN 20 H Creatinine 1.29 H Estim Creat Clear Calc 35.04 Est GFR (MDRD) Af Amer 53 L Est GFR (MDRD) Non-Af 43 L BUN/Creatinine Ratio 15.5 Glucose 144 H Lactic Acid 1.7 Calcium 9.2 Total Bilirubin 0.30 AST 23 ALT 16 Alkaline Phosphatase 37 L Troponin I Total Protein 6.5 Albumin 3.1 L Globulin 3.4 Albumin/Globulin Ratio 0.9 Urine Color Yellow Urine Clarity Clear Urine pH 7.0 Ur Specific [place] 1.005 Urine Protein Negative Urine Glucose (UA) Normal Urine Ketones Negative Urine Occult Blood Negative Urine Nitrite Positive H Urine Bilirubin Negative Urine Urobilinogen Normal Ur Leukocyte Esterase Negative Urine RBC 0 SEEN Urine WBC 0 SEEN Ur Squamous Epith Cells 0 SEEN Urine Bacteria 3+ Urine Mucus 0 SEEN Assessment/Plan All Active Problems (Last Reviewed 08/17/18 @ 13:36 by Jocelyn Juarez) Hypotension (Acute) Dyspnea on exertion (Acute) Abnormal stress echo (Acute) The patient is a 68 y/o F w/ PMHx: HTN, HLD, CKD stage III, Hx SVT following w/ Cardiology, Depression and Anxiety with history of recent diverticulitis treatment ~ 3 weeks prior with initial course two antibiotics presumed cipro and flagyl x 10 day course without marked improvement with repeat course given and nearing completion with only 1 day left of treatment patient with improvement of abdominal discomfort, nausea, loose stools had then onset generalized hives and swelling of her lip with discontinuation of this regimen and initiation on prednisone therapy who now presents to the [facility] ED on 09/05/18 with history of onset at 11:30 am lightheadedness and dizziness, noting spots occasionally in her vision prompting ED evaluation. (1) Acute Hypotension, Unclear Etiology, Possible Associated w/ Recent Medication Reaction, Angioedema and Noted Possible UTI (#2): We will admit to the ICU, PICC line team aware and will place PEG, continue dopamine initiated per the ED but defer to terrazzo layer transition to alternate agent if preferable, given unclear etiology and unremarkable ED evaluation with recent angioedema episode will transition to IV Solu-Medrol, famotidine, Benadryl scheduled as this seems the only possible etiology for current presentation, maintain on telemetry monitoring, repeat EKG in the morning, cycle cardiac enzymes, obtain cortisol level, IVFs, IV rocephin pending UCx as noted. (2) ? Acute UTI: UA upon ED evaluation not severe appearing with only noted positive nitrite and 3+ bacteria but no market WBCs noted in the urine, pending urine culture, will maintain on Rocephin IV pending these results. Bld cx x 2 obtained in the ED. (3) Hypertension: Given patient presentation with severe hypertension, holding regimen. (4) Hyperlipidemia: Holding TriCor. (5) Chronic Kidney Disease Stage III: Admission BUN/Cr 20/1.29, baseline renal function 1.3, repeat BMP in AM. (6) Hx SVT: No market findings on telemetry or EKG upon ED evaluation, will maintain on cardiac monitoring, magnesium requested, cycling cardiac enzymes. (7) Anxiety and Depression: We will continue home regimen sertraline. (8) Recent Diverticulitis: Treated w/ 2 rounds abx therapy, as noted reaction to medication which was stopped w/ initial dose steroids late this past Tuesday. No abdominal pain, nausea, emesis, tolerating diet now, stools improved. (9) DVT prophylaxis SCD, Lovenox. Code Visit Inpatient E&M: 14306 Init Hosp L3
[2018-09-05 19:52] LABS: Magnesium 2.2 mg/dL (1.6-2.6)
[2018-09-05] MEDS: Famotidine 20 MG Tablet PO (20:50)
[2018-09-05] MEDS: Ceftriaxone 1 GM/50 ML BAG IV (20:50)
[2018-09-05] MEDS: 0.9% Normal Saline 1,000 ML 150 ML IV (20:50)
[2018-09-05] MEDS: 0.9% NaCl Peripheral Flush Adult/Peds IV ×2 (20:55→22:44)
--- NOTE | 2018-09-05 21:50 | NURSING ---
systems security consultant called. They are not able to make it out tonight for placement of central line. Advised them of Dopamine drip and need for PICC. Requested pt to take precedence in the a.m.
[2018-09-05] MEDS: DiphenhydrAMINE 50 MG/ML Syringe 25 MG IV (22:44)
[2018-09-06] VITALS (22 sets, daily range): BP systolic 97–134; BP diastolic 61–88; PULSE 60–122; RESP 16–22; TEMP 36.2–38.1; O2SAT 92–100
[2018-09-06] MEDS: 0.9% Normal Saline 1,000 ML 150 ML IV (04:17)
[2018-09-06] MEDS: DiphenhydrAMINE 50 MG/ML Syringe 25 MG IV (05:45)
--- NOTE | 2018-09-06 05:55 | EKG12_ITS ---
Test Reason : INCREASE HR Blood Pressure : / mmHG Vent. Rate : 127 BPM Atrial Rate : 127 BPM P-R Int : 160 ms QRS Dur : 082 ms QT Int : 302 ms P-R-T Axes : 039 -38 030 degrees QTc Int : 438 ms Sinus tachycardia Left axis deviation Low voltage QRS Abnormal ECG Confirmed by PEGGY SMALLWOOD, RUBEN ([id number]), purchasing expeditor EMILY DEVINE ([id number]) on 09/11/2018 12:25:46 PM Referred By: Caterina Barber Confirmed By:RUBEN WOODS MD
[2018-09-06 06:16] LABS: Anion Gap 7 (5-15); BUN 18 mg/dL (7-18); BUN/Creat Ratio 17.3 RATIO (10-20); Calcium,Total 8.2 mg/dL (8.5-10.1); Chloride 109 mmol/L (98-107); Creatinine, Serum 1.04 mg/dL (0.55-1.02); EST Glomerular Filtration Rate 56 mL/min (>60); Est Glom Filt Rate - Afr Amer 67 mL/min (>60); Estimated Creatinine Clearance 43.46 ml/min; Glucose 127 mg/dL (74-106); Magnesium 1.8 mg/dL (1.6-2.6); Phosphorus 3.7 mg/dL (2.5-4.9); Sodium Level 142 mmol/L (136-145)
--- NOTE | 2018-09-06 06:26 | PCM.CON.CC ---
Reason for Consult Date of Consultation: 09/06/18 Reason for Consultation: Hypotension History of Present Illness: The patient is a 68-year-old female, with a history as outlined below, who presented to the emergency department on September 05 with dizziness and lightheadedness. On August 17, the patient was seen in the office of Dr. Goodman due to history of diverticulitis. She was placed on both ciprofloxacin and Flagyl at that office visit. The patient was then seen in the emergency department on September 02 with complaints of hives and lip swelling. At that time, the patient was given Solu-Medrol and IV Benadryl. She was observed in the emergency department and appeared stable. She was subsequently discharged home on prednisone with a presumed medication allergy. The patient does report that since her initial consultation with Dr. Goodman at the beginning of the month, she has had loose stools and decreased p.o. intake. Despite this, the patient has continued her home antihypertensive regimen. On presentation to the emergency department, the patient was initially noted to be afebrile but was hypotensive with a documented blood pressure of 49/32 mmHg. Laboratory evaluation revealed no evidence of a leukocytosis. The patient did have a mildly elevated d-dimer to 0.53. Chemistry profile revealed an elevated creatinine of 1.29. Troponin was negative. Urinalysis was positive for nitrites but negative for urine white blood cells. 3+ urine bacteria was noted. A CTA chest was obtained, which revealed mild to moderate aortic coarctation. No PE was identified. The lung parenchyma was grossly clear. The patient was also noted to have an abnormal gallbladder. Random cortisol level was normal. AST and ALT were within normal limits. The patient was given supplemental IV fluid hydration, but remained hypotensive. She was subsequently placed on dopamine by the ED provider. The patient was then transferred to the medical intensive care unit for ongoing management. Shortly after arrival to the ICU, the patient's vasopressor support was able to be discontinued completely. She has remained hemodynamically stable overnight. The patient was placed on ceftriaxone over concerns for potential cystitis. Of note, the patient does appear to be on several antihypertensives and long-acting Cardizem as an outpatient. Past Medical History Past Medical History (Chronic Problems): Chronic Problems (Last Reviewed 08/17/18 @ 13:36 by Jocelyn Juarez) Angioedema (Chronic) History of left heart catheterization (Chronic 04/13/18) Normal coronary arteries, EF 75% per [facility] Dr. Sotelo [facility] Hyperlipidemia (Chronic) Hypertension (Chronic) SVT (supraventricular tachycardia) (Chronic) Medical History: Medical History (Last Reviewed 08/17/18 @ 13:36 by Jocelyn Juarez) Dyspnea on exertion (Acute) R06.09 Abnormal stress echo (Acute) R94.39 Hyperlipidemia (Chronic) E78.5 Hypertension (Chronic) I10 SVT (supraventricular tachycardia) (Chronic) I47.1 Anxiety and depression F41.9, F32.9 Diverticulitis K57.92 Allergies bacitracin [From Neosporin ([id number])] Allergy (Verified 09/05/18 19:26) Rash bee venom protein (honey bee) Allergy (Verified 09/05/18 19:27) Anaphylaxis ciprofloxacin [From Cipro] Allergy (Verified 09/05/18 19:26) Swelling, hives metronidazole [From Flagyl] Allergy (Verified 09/05/18 19:26) Swelling, hives neomycin [From Neosporin ([id number])] Allergy (Verified 09/05/18 19:26) Rash polymyxin B [From Neosporin ([id number])] Allergy (Verified 09/05/18 19:26) Rash Home Medications: Ambulatory Orders Medication Instructions Recorded Fenofibrate [Tricor] 145 mg PO DAILY 04/23/16 Quinapril/Hydrochlorothiazide 1 tab PO DAILY 04/23/16 [Accuretic 20-12.5 MG Tablet] sertraline 100 mg tablet 200 mg PO DAILY tab 03/13/18 Aspirin [Aspir-Low] 81 mg PO DAILY 09/05/18 Diltiazem CD [Cardizem CD] 120 mg PO DAILY 09/05/18 Prednisone [Deltasone] 40 mg PO DAILY 09/05/18 Surgical History: Surgical History (Last Reviewed 08/17/18 @ 13:36 by Jocelyn Juarez) History of left heart catheterization (Chronic) Onset Date: 04/13/18 Z98 Normal coronary arteries, EF 75% per [facility] Dr. Sotelo [facility] H/O sinus surgery Z98.890 H/O tubal ligation Z98.51 History of bunionectomy of left great toe Z98.890 History of carpal tunnel release Z98.890 History of cataract surgery Z98.49 Surgical History: - - Bilateral TMJ, bilateral carpal tunnel surgery, left cataract surgery, diplopia surgery x2, bilateral tubal ligation, left bunionectomy, removal of toenail secondary to severe fungal infection. Psychiatric History: Anxiety, Depression [employer] History: No pertinent [employer]IAN history Lives: Spouse/ Significant Other Smoking Status: Never smoker Tobacco Use: Non-smoker Alcohol: None Drugs: None - *Family History Paternal Family History: Family History (Last Reviewed 08/17/18 @ 13:36 by Jocelyn Juarez) Mother CVA (cerebral vascular accident) Myocardial infarction Brother CAD (coronary artery disease) Father CAD (coronary artery disease) History Items: Heart Disease, - - Patient notes a paternal family history of heart disease, diabetes, CHF, [place], age 61 secondary to heart attack consultations. Maternal Family History: Family History (Last Reviewed 08/17/18 @ 13:36 by Jocelyn Juarez) Mother CVA (cerebral vascular accident) Myocardial infarction Brother CAD (coronary artery disease) Father CAD (coronary artery disease) History Items: - - Patient notes a maternal family history of heart disease, diabetes as well as stroke, age 73. Sibling Family History: Family History (Last Reviewed 08/17/18 @ 13:36 by Jocelyn Juarez) Mother CVA (cerebral vascular accident) Myocardial infarction Brother CAD (coronary artery disease) Father CAD (coronary artery disease) History Items: - - Patient notes a history of a brother with history of heart disease, status post CABG, recently passed ~ 1 week prior to current presentation secondary to history of a fall with unfortunate brain bleed. Review of Systems Constitutional: Denies: Chills, Fever Eyes: Reports: Double vision. Denies: Blurred vision HEENT: Denies: Head Aches, Sinus Congestion, Sinus Drainage Cardiovascular: Reports: Light Headedness. Denies: Chest Pain, Palpitations Respiratory: Denies: Cough, Shortness of breath at rest, Sputum production Gastrointestinal: Reports: Diarrhea. Denies: Nausea, Vomiting Genitourinary: Denies: Dysuria Musculoskeletal: Denies: Joint Pain, Joint Tenderness Skin: Denies: Rash, Wounds Neurological: Reports: Balance problems Psychiatric: Denies: Anxiety, Depression, Homicidal Ideations, Suicidal Ideations Hematologic/ Lymphatic: Denies: Easy Bruising, Easy Bleeding Patient Problems: Active and Suspected Problems (Last Reviewed 08/17/18 @ 13:36 by Jocelyn Juarez) Hypotension (Acute) Objective: The patient's most recent lab work, culture data and imaging studies have all been personally reviewed. Blood and urine cultures are currently pending. CT abdomen from August 04 did reveal sigmoid diverticulitis. Surface echocardiogram from March 2018 revealed normal LV size and thickness with an ejection fraction of 65% and stage I diastolic dysfunction. Right ventricular systolic pressure was estimated to be 20 mmHg. - Physical Exam General: Alert, Cooperative, No apparent distress HEENT: Atraumatic, PERRLA, Normocephalic Oral: Moist Mucosa, No Gingival or Mucosal Lesions/ Ulcerations Neck: Supple, No Nodes, Trachea Midline Lungs: Normal air movement, No rhonchi, No wheeze, No rales Cardiovascular: Regular rate, Regular Rhythm, Normal S1, Normal S2, No murmurs Abdomen: Bowel Sounds Present, Soft, Non Tender Extremities: No clubbing, No cyanosis, No edema Skin: No breakdown Musculoskeletal: No Tenderness to Palpation of Joints or Extremities Lymphatic: No Cervical, Supraclavicular, or Inguinal Adenopathy Neurological: Cranial nerves II-XII grossly intact, Neuro grossly intact Psych/Mental Status: Alert and oriented to time, place, person, mood and affect Vital Signs Temp Pulse Resp BP Pulse Ox 98.0 F 64 18 106/83 H 100 09/06/18 04:00 09/06/18 04:00 09/06/18 04:00 09/06/18 04:00 09/06/18 04:00 Oxygen Flow Rate (L/min) 2 Oxygen Delivery Method Room Air Weight: 147 lb 0.773 oz Body Mass Index (BMI) 24.8 Intake and Output for Last 24 Hours 09/04/18 09/05/18 09/06/18 23:59 23:59 23:59 Intake Total 736.6 / 736.6 Output Total 750 / 750 Balance -13.4 / -13.4 Laboratory Tests Past 24 Hrs 09/05/18 09/05/18 09/05/18 13:32 13:37 13:37 WBC 10.1 RBC 4.40 Hgb 12.9 Hct 39.5 MCV 89.8 MCH 29.3 MCHC 32.7 RDW 15.0 H RDW Differential 49.5 H Plt Count 359 MPV 10.8 Immature Gran % (Auto) 0.200 Neut % (Auto) 60.2 Lymph % (Auto) 30.8 [place] % (Auto) 7.6 Eos % (Auto) 0.7 Baso % (Auto) 0.5 Absolute Neuts (auto) 6.1 Absolute Lymphs (auto) 3.10 Total Counted Not Reportable PT 13.5 INR 1.1 APTT 26.9 D-Dimer Quant (PE/DVT) 0.53 H* Sodium Potassium Chloride Carbon Dioxide Anion Gap BUN Creatinine Estim Creat Clear Calc Est GFR (MDRD) Af Amer Est GFR (MDRD) Non-Af BUN/Creatinine Ratio Glucose Lactic Acid Calcium Phosphorus Magnesium Total Bilirubin AST ALT Alkaline Phosphatase Troponin I < 0.015 Total Protein Albumin Globulin Albumin/Globulin Ratio Cortisol Urine Color Urine Clarity Urine pH Ur Specific [place] Urine Protein Urine Glucose (UA) Urine Ketones Urine Occult Blood Urine Nitrite Urine Bilirubin Urine Urobilinogen Ur Leukocyte Esterase Urine RBC Urine WBC Ur Squamous Epith Cells Urine Bacteria Urine Mucus 09/05/18 09/05/18 09/05/18 13:37 13:37 13:37 WBC RBC Hgb Hct MCV MCH MCHC RDW RDW Differential Plt Count MPV Immature Gran % (Auto) Neut % (Auto) Lymph % (Auto) [place] % (Auto) Eos % (Auto) Baso % (Auto) Absolute Neuts (auto) Absolute Lymphs (auto) Total Counted PT INR APTT D-Dimer Quant (PE/DVT) Sodium 136 Potassium 3.7 Chloride 105 Carbon Dioxide 26.0 Anion Gap 5 BUN 20 H Creatinine 1.29 H Estim Creat Clear Calc 35.04 Est GFR (MDRD) Af Amer 53 L Est GFR (MDRD) Non-Af 43 L BUN/Creatinine Ratio 15.5 Glucose 144 H Lactic Acid Calcium 9.2 Phosphorus Magnesium 2.2 Total Bilirubin 0.30 AST 23 ALT 16 Alkaline Phosphatase 37 L Troponin I Total Protein 6.5 Albumin 3.1 L Globulin 3.4 Albumin/Globulin Ratio 0.9 Cortisol 21.40 Urine Color Urine Clarity Urine pH Ur Specific [place] Urine Protein Urine Glucose (UA) Urine Ketones Urine Occult Blood Urine Nitrite Urine Bilirubin Urine Urobilinogen Ur Leukocyte Esterase Urine RBC Urine WBC Ur Squamous Epith Cells Urine Bacteria Urine Mucus 0409/05/18 09/05/18 14:30 16:03 20:20 WBC RBC Hgb Hct MCV MCH MCHC RDW RDW Differential Plt Count MPV Immature Gran % (Auto) Neut % (Auto) Lymph % (Auto) [place] % (Auto) Eos % (Auto) Baso % (Auto) Absolute Neuts (auto) Absolute Lymphs (auto) Total Counted PT INR APTT D-Dimer Quant (PE/DVT) Sodium Potassium Chloride Carbon Dioxide Anion Gap BUN Creatinine Estim Creat Clear Calc Est GFR (MDRD) Af Amer Est GFR (MDRD) Non-Af BUN/Creatinine Ratio Glucose Lactic Acid 1.7 Calcium Phosphorus Magnesium Total Bilirubin AST ALT Alkaline Phosphatase Troponin I < 0.015 Total Protein Albumin Globulin Albumin/Globulin Ratio Cortisol Urine Color Yellow Urine Clarity Clear Urine pH 7.0 Ur Specific [place] 1.005 Urine Protein Negative Urine Glucose (UA) Normal Urine Ketones Negative Urine Occult Blood Negative Urine Nitrite Positive H Urine Bilirubin Negative Urine Urobilinogen Normal Ur Leukocyte Esterase Negative Urine RBC 0 SEEN Urine WBC 0 SEEN Ur Squamous Epith Cells 0 SEEN Urine Bacteria 3+ Urine Mucus 0 SEEN 09/05/18 09/06/18 09/06/18 23:35 05:55 05:55 WBC Pending RBC Pending Hgb Pending Hct Pending MCV Pending MCH Pending MCHC Pending RDW Pending RDW Differential Pending Plt Count Pending MPV Immature Gran % (Auto) Neut % (Auto) Pending Lymph % (Auto) [place] % (Auto) Eos % (Auto) Baso % (Auto) Absolute Neuts (auto) Pending Absolute Lymphs (auto) Total Counted Pending PT INR APTT D-Dimer Quant (PE/DVT) Sodium 142 Potassium 4.0 Chloride 109 H Carbon Dioxide 26.0 Anion Gap 7 BUN 18 Creatinine 1.04 H Estim Creat Clear Calc 43.46 Est GFR (MDRD) Af Amer 67 Est GFR (MDRD) Non-Af 56 L BUN/Creatinine Ratio 17.3 Glucose 127 H Lactic Acid Calcium 8.2 L Phosphorus 3.7 Magnesium 1.8 Total Bilirubin AST ALT Alkaline Phosphatase Troponin I < 0.015 Total Protein Albumin Globulin Albumin/Globulin Ratio Cortisol Urine Color Urine Clarity Urine pH Ur Specific [place] Urine Protein Urine Glucose (UA) Urine Ketones Urine Occult Blood Urine Nitrite Urine Bilirubin Urine Urobilinogen Ur Leukocyte Esterase Urine RBC Urine WBC Ur Squamous Epith Cells Urine Bacteria Urine Mucus Clinical Impression(s) from Imaging Studies Chest X-Ray 09/05/18 14:14 IMPRESSION: No acute cardiopulmonary findings Electronically Signed: Eliseo Raza DO at 14:45 EDT Tel , Service support , Chest CTA 09/05/18 15:10 IMPRESSION: No evidence for PE. Mild to moderate aortic coarctation. COPD. Atelectasis or scarring in the posterior lung bases. Electronically Signed: Jose Jacobo MD at 16:07 EDT , Service support , Assessment/Plan Active and Suspected Problems (Last Reviewed 08/17/18 @ 13:36 by Jocelyn Juarez) Hypotension (Acute) RECOMMENDATIONS: 1. Discontinue continuous supplemental IV fluids and advance diet. 2. Discontinue Benadryl and scheduled steroids. 3. Check orthostatic vital signs. 4. Continue antibiotics, pending urine culture results. 5. Continue to hold home antihypertensive/diuretic regimen. 6. Continue appropriate DVT prophylaxis. IMPRESSIONS: 1. Hypovolemic shock The patient presented to the emergency department with hypotension in the setting of GI losses and decreased p.o. intake. Unfortunately, in light of the aforementioned, the patient was still taking her home antihypertensives/diuretics. She did transiently require administration of vasopressor support. I do suspect that her hypotension was the consequence of intravascular volume depletion coupled with the medication effect of her antihypertensives. I do not suspect that the patient had an acute anaphylactic reaction. Continue with supplemental IV fluids can be discontinued and her diet advanced accordingly. We will also plan to discontinue scheduled Benadryl and methylprednisone. Recommend checking orthostatic vital signs later this morning. If the patient's urine culture is negative, antibiotics will be discontinued completely. 2. Acute on chronic kidney disease Likely prerenal in etiology, as the patient's creatinine has improved with volume expansion. Urine output is appropriate. No indication for renal replacement therapy. 3. Hypertension/hyperlipidemia/depression/anxiety Complicates care, management, recovery and prognosis. Continue to hold home antihypertensives for now. This note was generated with Dragon dictation software. It may contain incorrect words, spelling, and punctuation that were not noted in checking the note before signing. Code Visit Inpatient E&M: 13789 Init Hosp L3
[2018-09-06 06:33] LABS: Absolute Neutrophil Count 6.7 X10^3/uL (2.0-7.7); Basophil# 0.01 X10^3/uL; Basophil% 0.1 % (0-1); Hematocrit 35.9 % (37-47); Hemoglobin 11.5 g/dl (12.0-15.0); Lymphocyte % 8.2 % (19-41); Mean Corpuscular Hgb 28.8 pg (27.0-32.0); Mean Corpuscular Volume 89.8 fL (81-99); Mean Platelet Vol. 10.6 fl (6.2-12.0); Monocyte# 0.03 X10^3/uL; Monocyte% 0.4 % (0-10); Neutrophil # 6.71 X10^3/uL (2.7-7.7); Neutrophil % 91.2 % (47-70); Platelet Count 295 K/mm3 (150-450); RBC Distribution Width SD 49.1 fl (35.1-43.9); White Blood Count 7.4 K/mm3 (4.4-11.0)
[2018-09-06 06:40] LABS: Differential Indicated SCAN CRITERIA MET; POSITIVE COUNT NO; POSITIVE DIFFERENTIAL YES; POSITIVE MORPHOLOGY NO
--- NOTE | 2018-09-06 08:16 | PCM.PN.HOSP ---
Patient Problems: Active and Suspected Problems (Last Reviewed 08/17/18 @ 13:36 by Jocelyn Juarez) Hypotension (Acute) Subjective: the patient was admitted on 09/06/2018 for generalized hives, sudden onset with oropharyngeal and tongue swelling with dizziness, lightheadedness. This happened after almost 20 days of Cipro and Flagyl given for when he did not get better after 10 days course. Patient was admitted in ICU with hypotension, BP 49/32 which increased to 63/47 ; that necessitated start of vasopressor, vasopressin. This was soon discontinued and the patient arrived in ICU. Patient is maintaining her blood pressure. Heart rate 65/min. Map 82, blood pressure 107/70. Pulse ox 96% on room air. Vitals/I&O's: Vital Signs Temp Pulse Resp BP Pulse Ox 98.0 F 65 18 107/70 96 09/06/18 04:00 09/06/18 07:15 09/06/18 07:00 09/06/18 07:00 09/06/18 07:00 Oxygen Flow Rate (L/min) 2 Oxygen Delivery Method Room Air Weight: 147 lb 0.773 oz Body Mass Index (BMI) 24.8 Intake and Output for Last 24 Hours 09/04/18 09/05/18 09/06/18 23:59 23:59 23:59 Intake Total 1745.1 / 1745.1 Output Total 1125 / 1125 Balance 620.1 / 620.1 General: Alert, Oriented x3, Cooperative HEENT: Atraumatic, PERRLA, EOMI, Normocephalic Oral: - - Tongue swelling present. No respiratory distress Neck: Supple, No JVD, Negative Carotid Bruits Lungs: Clear to auscultation, Normal air movement, No rhonchi, No wheeze, No rales Cardiovascular: Regular rate, Regular Rhythm, Normal S1, Normal S2, No murmurs Abdomen: Bowel Sounds Present, Soft, Non Tender, Non-Distended Extremities: No edema, Capillary Refill Less than 3 Seconds Skin: No rashes, No breakdown Musculoskeletal: No Tenderness to Palpation of Joints or Extremities, Arthritic Changes Neurological: Cranial nerves II-XII grossly intact, Deep Tendon Reflexes 2+/4 and Symmetrical, Neuro grossly intact Psych/Mental Status: Normal Affect, Appropriate Laboratory Results 09/05/18 13:32: Troponin I < 0.015 09/05/18 13:37: WBC 10.1, RBC 4.40, Hgb 12.9, Hct 39.5, MCV 89.8, MCH 29.3, MCHC 32.7, RDW 15.0 H, RDW Differential 49.5 H, Plt Count 359, MPV 10.8, Immature Gran % (Auto) 0.200, Neut % (Auto) 60.2, Lymph % (Auto) 30.8, [place] % (Auto) 7.6, Eos % (Auto) 0.7, Baso % (Auto) 0.5, Absolute Neuts (auto) 6.1, Absolute Lymphs (auto) 3.10, Total Counted Not Reportable 09/05/18 13:37: PT 13.5, INR 1.1, APTT 26.9, D-Dimer Quant (PE/DVT) 0.53 H* 09/05/18 13:37: Sodium 136, Potassium 3.7, Chloride 105, Carbon Dioxide 26.0, Anion Gap 5, BUN 20 H, Creatinine 1.29 H, Estim Creat Clear Calc 35.04, Est GFR (MDRD) Af Amer 53 L, Est GFR (MDRD) Non-Af 43 L, BUN/Creatinine Ratio 15.5, Glucose 144 H, Calcium 9.2, Total Bilirubin 0.30, AST 23, ALT 16, Alkaline Phosphatase 37 L, Total Protein 6.5, Albumin 3.1 L, Globulin 3.4, Albumin/Globulin Ratio 0.9 09/05/18 13:37: Magnesium 2.2 09/05/18 13:37: Cortisol 21.40 09/05/18 14:30: Lactic Acid 1.7 09/05/18 16:03: Urine Color Yellow, Urine Clarity Clear, Urine pH 7.0, Ur Specific [place] 1.005, Urine Protein Negative, Urine Glucose (UA) Normal, Urine Ketones Negative, Urine Occult Blood Negative, Urine Nitrite Positive H, Urine Bilirubin Negative, Urine Urobilinogen Normal, Ur Leukocyte Esterase Negative, Urine RBC 0 SEEN, Urine WBC 0 SEEN, Ur Squamous Epith Cells 0 SEEN, Urine Bacteria 3+, Urine Mucus 0 SEEN 09/05/18 20:20: Troponin I < 0.015 09/05/18 23:35: Troponin I < 0.015 09/06/18 05:55: WBC 7.4, RBC 4.00 L, Hgb 11.5 L, Hct 35.9 L, MCV 89.8, MCH 28.8, MCHC 32.0, RDW 15.0 H, RDW Differential 49.1 H, Plt Count 295, MPV 10.6, Immature Gran % (Auto) 0.100, Neut % (Auto) 91.2 H, Lymph % (Auto) 8.2 L, [place] % (Auto) 0.4, Eos % (Auto) 0.0, Baso % (Auto) 0.1, Absolute Neuts (auto) 6.7, Absolute Lymphs (auto) 0.60 L, Total Counted Not Reportable 09/06/18 05:55: Sodium 142, Potassium 4.0, Chloride 109 H, Carbon Dioxide 26.0, Anion Gap 7, BUN 18, Creatinine 1.04 H, Estim Creat Clear Calc 43.46, Est GFR (MDRD) Af Amer 67, Est GFR (MDRD) Non-Af 56 L, BUN/Creatinine Ratio 17.3, Glucose 127 H, Calcium 8.2 L, Phosphorus 3.7, Magnesium 1.8 Current Medications Acetaminophen (Tylenol) 650 mg PO Q6H PRN PRN PRN Reason: Non-cardiac pain (mod-severe) Hydrocodone Bitart/Acetaminophen (Red Devil 5mg-325mg) 1 - 2 tablet PO Q6H PRN PRN PRN Reason: MOD-SEVERE PAIN (4-10/10) Al Hydroxide/Mg Hydroxide (Mylanta Ii) 15 - 30 ml PO Q4H PRN PRN PRN Reason: INDIGESTION Albuterol Sulfate (Ventolin Aerosols) 2.5 mg INHALATION Q2H PRN PRN PRN Reason: dyspnea, wheezing Aspirin (Ecotrin) 81 mg PO DAILY@0800 [facility] Diphenhydramine HCl (Benadryl) 25 mg IV Q8H [facility] Last Admin: 09/06/18 05:45 Dose: 25 mg Enoxaparin Sodium (Lovenox) 30 mg SC DAILY@1000 [facility] Famotidine (Pepcid) 20 mg PO BID [facility] Last Admin: 09/05/18 20:50 Dose: 20 mg Heparin Sodium (Beef Lung) () 50 units IV UD PRN PRN Reason: HEPARIN FLUSH Ceftriaxone Sodium (Rocephin) 1 gm in 50 mls @ 100 mls/hr IV Q24@2200 [facility] Last Admin: 09/05/18 20:50 Dose: 100 mls/hr Sodium Chloride () 250 mls @ 15 mls/hr IV .[id number] PRN PRN Reason: SALINE FLUSH Magnesium Hydroxide (Milk Of Magnesia) 30 ml PO DAILY PRN PRN PRN Reason: Constipation Methylprednisolone (Solu-Medrol) 40 mg IV Q8 [facility] Last Admin: 09/06/18 05:44 Dose: 40 mg Nitroglycerin (Nitrostat) 0.4 mg SUBLINGUAL Q5M PRN PRN Reason: CARDIAC/CHEST PAIN Ondansetron HCl (Zofran) 4 mg IV Q8H PRN PRN PRN Reason: NAUSEA/VOMITING Sertraline HCl (Zoloft) 200 mg PO DAILY [facility] Sodium Chloride () 5 - 15 ml IV UD PRN PRN Reason: SALINE FLUSH Last Admin: 09/05/18 22:44 Dose: 10 ml Sodium Chloride () 10 - 20 ml IV UD PRN PRN Reason: PICC FLUSH Medical Necessity - Tobacco Use Smoking Status: Never smoker Tobacco Use: Non-smoker Assessment/Plan All Active Problems (Last Reviewed 08/17/18 @ 13:36 by Jocelyn Juarez) Hypotension (Acute) Dyspnea on exertion (Acute) Abnormal stress echo (Acute) This is a 68-year-old female with history of hypertension, dyslipidemia and SVT came to ER with dizziness, lightheadedness, generalized hives, hypotension consistent with anaphylactic shock which required transient IV vasopressin The patient had sudden onset with oropharyngeal and tongue swelling with dizziness, lightheadedness. This happened after almost 20 days of Cipro and Flagyl given for when he did not get better after 10 days course. Patient was admitted in ICU with hypotension, BP 49/32 which increased to 63/47; that necessitated start of vasopressor, vasopressin. 1. Anaphylactic shock; hypotension secondary to medications Cipro and Flagyl along with multiple antihypertensive medications: At home, she was on quinapril/HCTZ 20-12.5 mg, Cardizem CD 120 mg. Antihypertensive medications are on hold. On Benadryl, Pepcid and IV Solu-Medrol. The patient is hemodynamically stable and level of care transitioned to PCU. 2. Cystitis/UTI: UA is positive of nitrite, bacteria 3+, WBC RBCs 0. Empirically started on IV ceftriaxone. Blood cultures x2 and urine culture are pending. (3) Hypertension: Hold antihypertensive medication as mentioned above. (4) Hyperlipidemia: Holding TriCor. (5) Chronic Kidney Disease Stage III: Admission BUN/Cr 20/1.29, baseline renal function 1.3. Repeat labs loosening BUN/creatinine 18/1.04 back on the baseline. (6) Hx SVT: No market findings on telemetry or EKG. Serial troponin enzymes are negative. On telemetry, normal sinus rhythm. (7) Anxiety and Depression: continue home regimen sertraline. (8) Recent Diverticulitis: Treated w/ 2 rounds abx therapy, as noted reaction to medication which was stopped pior to arrival and initial dose steroids late this past Tuesday. No abdominal pain, nausea/vomiting/abdominal tenderness. Tolerating diet now, stools improved. No clinical GI bleed. (9) DVT prophylaxis SCD, Lovenox. Discontinue if platelet count drops less than 50,000 or hemoglobin less than 8 g% Code Visit Inpatient E&M: 83499 [facility] [[email or web address]] Hosp L3
--- NOTE | 2018-09-06 08:20 | PN_ITS ---
Patient Problems: Active and Suspected Problems (Last Reviewed 08/17/18 @ 13:36 by Jocelyn Juarez) Hypotension (Acute) Subjective: the patient was admitted on 09/06/2018 for generalized hives, sudden onset with oropharyngeal and tongue swelling with dizziness, lightheadedness. This happened after almost 20 days of Cipro and Flagyl given for when he did not get better after 10 days course. Patient was admitted in ICU with hypotension, BP 49/32 which increased to 63/47 ; that necessitated start of vasopressor, vasopressin. This was soon discontinued and the patient arrived in ICU. Patient is maintaining her blood pressure. Heart rate 65/min. Map 82, blood pressure 107/70. Pulse ox 96% on room air. Vitals/I&O's: Vital Signs Temp Pulse Resp BP Pulse Ox 98.0 F 65 18 107/70 96 09/06/18 04:00 09/06/18 07:15 09/06/18 07:00 09/06/18 07:00 09/06/18 07:00 Oxygen Flow Rate (L/min) 2 Oxygen Delivery Method Room Air Weight: 147 lb 0.773 oz Body Mass Index (BMI) 24.8 Intake and Output for Last 24 Hours 09/04/18 09/05/18 09/06/18 23:59 23:59 23:59 Intake Total 1745.1 / 1745.1 Output Total 1125 / 1125 Balance 620.1 / 620.1 General: Alert, Oriented x3, Cooperative HEENT: Atraumatic, PERRLA, EOMI, Normocephalic Oral: - - Tongue swelling present. No respiratory distress Neck: Supple, No JVD, Negative Carotid Bruits Lungs: Clear to auscultation, Normal air movement, No rhonchi, No wheeze, No rales Cardiovascular: Regular rate, Regular Rhythm, Normal S1, Normal S2, No murmurs Abdomen: Bowel Sounds Present, Soft, Non Tender, Non-Distended Extremities: No edema, Capillary Refill Less than 3 Seconds Skin: No rashes, No breakdown Musculoskeletal: No Tenderness to Palpation of Joints or Extremities, Arthritic Changes Neurological: Cranial nerves II-XII grossly intact, Deep Tendon Reflexes 2+/4 and Symmetrical, Neuro grossly intact Psych/Mental Status: Normal Affect, Appropriate Laboratory Results 09/05/18 13:32: Troponin I < 0.015 09/05/18 13:37: WBC 10.1, RBC 4.40, Hgb 12.9, Hct 39.5, MCV 89.8, MCH 29.3, MCHC 32.7, RDW 15.0 H, RDW Differential 49.5 H, Plt Count 359, MPV 10.8, Immature Gran % (Auto) 0.200, Neut % (Auto) 60.2, Lymph % (Auto) 30.8, [place] % (Auto) 7.6, Eos % (Auto) 0.7, Baso % (Auto) 0.5, Absolute Neuts (auto) 6.1, Absolute Lymphs (auto) 3.10, Total Counted Not Reportable 09/05/18 13:37: PT 13.5, INR 1.1, APTT 26.9, D-Dimer Quant (PE/DVT) 0.53 H* 09/05/18 13:37: Sodium 136, Potassium 3.7, Chloride 105, Carbon Dioxide 26.0, Anion Gap 5, BUN 20 H, Creatinine 1.29 H, Estim Creat Clear Calc 35.04, Est GFR (MDRD) Af Amer 53 L, Est GFR (MDRD) Non-Af 43 L, BUN/Creatinine Ratio 15.5, Glucose 144 H, Calcium 9.2, Total Bilirubin 0.30, AST 23, ALT 16, Alkaline Phosphatase 37 L, Total Protein 6.5, Albumin 3.1 L, Globulin 3.4, Albumin/Globulin Ratio 0.9 09/05/18 13:37: Magnesium 2.2 09/05/18 13:37: Cortisol 21.40 09/05/18 14:30: Lactic Acid 1.7 09/05/18 16:03: Urine Color Yellow, Urine Clarity Clear, Urine pH 7.0, Ur Specific [place] 1.005, Urine Protein Negative, Urine Glucose (UA) Normal, Urine Ketones Negative, Urine Occult Blood Negative, Urine Nitrite Positive H, Urine Bilirubin Negative, Urine Urobilinogen Normal, Ur Leukocyte Esterase Negative, Urine RBC 0 SEEN, Urine WBC 0 SEEN, Ur Squamous Epith Cells 0 SEEN, Urine Bacteria 3+, Urine Mucus 0 SEEN 09/05/18 20:20: Troponin I < 0.015 09/05/18 23:35: Troponin I < 0.015 09/06/18 05:55: WBC 7.4, RBC 4.00 L, Hgb 11.5 L, Hct 35.9 L, MCV 89.8, MCH 28.8, MCHC 32.0, RDW 15.0 H, RDW Differential 49.1 H, Plt Count 295, MPV 10.6, Immature Gran % (Auto) 0.100, Neut % (Auto) 91.2 H, Lymph % (Auto) 8.2 L, [place] % (Auto) 0.4, Eos % (Auto) 0.0, Baso % (Auto) 0.1, Absolute Neuts (auto) 6.7, Absolute Lymphs (auto) 0.60 L, Total Counted Not Reportable 09/06/18 05:55: Sodium 142, Potassium 4.0, Chloride 109 H, Carbon Dioxide 26.0, Anion Gap 7, BUN 18, Creatinine 1.04 H, Estim Creat Clear Calc 43.46, Est GFR (MDRD) Af Amer 67, Est GFR (MDRD) Non-Af 56 L, BUN/Creatinine Ratio 17.3, Glucose 127 H, Calcium 8.2 L, Phosphorus 3.7, Magnesium 1.8 Current Medications Acetaminophen (Tylenol) 650 mg PO Q6H PRN PRN PRN Reason: Non-cardiac pain (mod-severe) Hydrocodone Bitart/Acetaminophen ([place] 5mg-325mg) 1 - 2 tablet PO Q6H PRN PRN PRN Reason: MOD-SEVERE PAIN (4-10/10) Al Hydroxide/Mg Hydroxide (Mylanta Ii) 15 - 30 ml PO Q4H PRN PRN PRN Reason: INDIGESTION Albuterol Sulfate (Ventolin Aerosols) 2.5 mg INHALATION Q2H PRN PRN PRN Reason: dyspnea, wheezing Aspirin (Ecotrin) 81 mg PO DAILY@0800 [facility] Diphenhydramine HCl (Benadryl) 25 mg IV Q8H [facility] Last Admin: 09/06/18 05:45 Dose: 25 mg Enoxaparin Sodium (Lovenox) 30 mg SC DAILY@1000 [facility] Famotidine (Pepcid) 20 mg PO BID [facility] Last Admin: 09/05/18 20:50 Dose: 20 mg Heparin Sodium (Beef Lung) () 50 units IV UD PRN PRN Reason: HEPARIN FLUSH Ceftriaxone Sodium (Rocephin) 1 gm in 50 mls @ 100 mls/hr IV Q24@2200 [facility] Last Admin: 09/05/18 20:50 Dose: 100 mls/hr Sodium Chloride () 250 mls @ 15 mls/hr IV .[id number] PRN PRN Reason: SALINE FLUSH Magnesium Hydroxide (Milk Of Magnesia) 30 ml PO DAILY PRN PRN PRN Reason: Constipation Methylprednisolone (Solu-Medrol) 40 mg IV Q8 [facility] Last Admin: 09/06/18 05:44 Dose: 40 mg Nitroglycerin (Nitrostat) 0.4 mg SUBLINGUAL Q5M PRN PRN Reason: CARDIAC/CHEST PAIN Ondansetron HCl (Zofran) 4 mg IV Q8H PRN PRN PRN Reason: NAUSEA/VOMITING Sertraline HCl (Zoloft) 200 mg PO DAILY [facility] Sodium Chloride () 5 - 15 ml IV UD PRN PRN Reason: SALINE FLUSH Last Admin: 09/05/18 22:44 Dose: 10 ml Sodium Chloride () 10 - 20 ml IV UD PRN PRN Reason: PICC FLUSH Medical Necessity - Tobacco Use Smoking Status: Never smoker Tobacco Use: Non-smoker Assessment/Plan All Active Problems (Last Reviewed 08/17/18 @ 13:36 by Jocelyn Juarez) Hypotension (Acute) Dyspnea on exertion (Acute) Abnormal stress echo (Acute) This is a 68-year-old female with history of hypertension, dyslipidemia and SVT came to ER with dizziness, lightheadedness, generalized hives, hypotension consistent with anaphylactic shock which required transient IV vasopressin The patient had sudden onset with oropharyngeal and tongue swelling with dizziness, lightheadedness. This happened after almost 20 days of Cipro and Flagyl given for when he did not get better after 10 days course. Patient was admitted in ICU with hypotension, BP 49/32 which increased to 63/47; that necessitated start of vasopressor, vasopressin. 1. Anaphylactic shock; hypotension secondary to medications Cipro and Flagyl justyna ng with multiple antihypertensive medications: At home, she was on quinapril/HCTZ 20-12.5 mg, Cardizem CD 120 mg. Antihypertensive medications are on hold. On Benadryl, Pepcid and IV Solu-Medrol. The patient is hemodynamically stable and level of care transitioned to PCU. 2. Cystitis/UTI: UA is positive of nitrite, bacteria 3+, WBC RBCs 0. Empirically started on IV ceftriaxone. Blood cultures x2 and urine culture are pending. (3) Hypertension: Hold antihypertensive medication as mentioned above. (4) Hyperlipidemia: Holding TriCor. (5) Chronic Kidney Disease Stage III: Admission BUN/Cr 20/1.29, baseline renal function 1.3. Repeat labs loosening BUN/creatinine 18/1.04 back on the baseline. (6) Hx SVT: No market findings on telemetry or EKG. Serial troponin enzymes are negative. On telemetry, normal sinus rhythm. (7) Anxiety and Depression: continue home regimen sertraline. (8) Recent Diverticulitis: Treated w/ 2 rounds abx therapy, as noted reaction to medication which was stopped pior to arrival and initial dose steroids late this past Tuesday. No abdominal pain, nausea/vomiting/abdominal tenderness. Tolerating diet now, stools improved. No clinical GI bleed. (9) DVT prophylaxis SCD, Lovenox. Discontinue if platelet count drops less than 50,000 or hemoglobin less than 8 g% Code Visit Inpatient E&M: 49350 Subs Hosp L3
--- NOTE | 2018-09-06 08:55 | NURSING ---
Pt assisted OOB to chair for first time since arriving to ICU. Pt tolerated well without c/o dizziness/weakness. Will continue to monitor.
[2018-09-06] MEDS: Aspirin E.C. 81 MG Tablet PO (10:13)
[2018-09-06] MEDS: Famotidine 20 MG Tablet PO ×2 (10:13→21:55)
[2018-09-06] MEDS: Sertraline 100 MG Tablet 200 MG PO (10:13)
[2018-09-06] MEDS: Enoxaparin 30 MG/0.3 ML Syringe SC (10:13)
--- NOTE | 2018-09-06 10:31 | CASEMGMT ---
RN CM CHIPS SCREEN TENDER CM to room to meet with patient for initial transition planning/care coordination assessment. RN ROSA MARIA introduced self and role at [facility]. Pt voices understanding and consents to assessment at this time. Pt sitting up in chair in no distress at this time. at bedside. Pt is A/O at this time and answers all questions appropriately. Care providers, pharmacy, and demographics verified at this time. PCP: No PCP. States her PCP retired and she is looking for another one. Given list of local PCP's. Specialists: Deepak--cardiology, Maxine--gastroenterology, Ayanna Preferred Pharmacy: [facility] Insurance: MMO [facility] Prescription Benefit: Yes Living Will/HPOA: Has both LW and HCPOA, who is her Sushant Mcintyre LNOK: Living Arrangements: Lives with her in one-story home. 2 steps to enter. Denies difficulty. Independent prior to recent illness. States has been very supportive in helping to manage home mgmt tasks during her recent illness w/diverticulitis. Transportation: Pt states drives self and states no transportation concerns at this time. DME: Denies using any DME and denies needs. HHC/SNF: No history of either. Denies needs and no needs identified. Pt wishes to return home and states has no concerns with going home at time of discharge. Pt states does not smoke or drink ETOH. CM to follow for any discharge planning/needs. Pt voices no further concerns/needs at this time. Advised pt to ask for CM if any further questions/concerns/needs arise. Voices understanding. PLAN: Home with spousal support and discharge plans in place. Jason RUEDA RN, CM
[2018-09-06] MEDS: Ensure Clear 120 ML Liquid PO ×2 (15:04→18:27)
[2018-09-06] MEDS: Mag Hydrox/Al Hydrox/Simeth 30 ML UDC PO (19:08)
[2018-09-06] MEDS: Ceftriaxone 1 GM/50 ML BAG IV (21:54)
[2018-09-07] VITALS (19 sets, daily range): BP systolic 96–120; BP diastolic 53–71; PULSE 87–151; RESP 16–20; TEMP 36.3–39; O2SAT 90–99
[2018-09-07] MEDS: Acetaminophen 325 MG Tablet 650 MG PO ×2 (08:22→19:45)
[2018-09-07] MEDS: Famotidine 20 MG Tablet PO ×2 (08:23→21:16)
--- NOTE | 2018-09-07 08:23 | CT_ITS ---
STUDY: CT ABDOMEN AND PELVIS WITHOUT CONTRAST REASON FOR EXAM: Female, 68 years old. Abdominal pain and fever RADIATION DOSAGE (If Supplied By Facility): CTDIvol = ( 7.75 ) mGy, DLP = ( 393.20 ) mGycm TECHNIQUE: Transaxial images were obtained from the dome of the diaphragm to the symphysis pubis with oral contrast, and without intravenous contrast. Sagittal and coronal images were reconstructed. Individualized dose optimization techniques were used for this CT. COMPARISON: 08/04/2018 FINDINGS: The visualized lung bases are unremarkable. The visualized portions of the heart are within normal limits. Normal liver. Normal gallbladder and extrahepatic biliary system. Normal spleen. Normal pancreas. Normal bilateral adrenal glands. Normal right kidney. Normal left kidney. Normal visualized stomach. Normal small intestine. Diffuse submucosal thickening of the majority of the colon suggest a diffuse colitis. This could represent C. Difficile colitis though inflammatory colitis can have a similar appearance. There is no perforation or abscess noted. There is non-visualization of the appendix. There is diffuse atherosclerotic calcification of the abdominal aorta, without a demonstrated aneurysm. Normal inferior vena cava. Normal retroperitoneum. Normal urinary bladder. Uterus is still present, the endometrium cannot be accurately evaluated with CT. There is nonspecific induration of the mesenteric and pelvic fat and a small amount of dependent fluid is noted in the pelvis. No suspicious cystic mass. Normal abdominal wall. There are diffuse degenerative changes of the visualized lumbar spine. CT/Abdomen/Pel W ORAL Cont Only IMPRESSION: Diffuse submucosal thickening of the majority of the colon, most notably in the sigmoid colon. There is pericolonic inflammatory stranding and induration of the mesenteric and retroperitoneal fat. Findings could represent C. difficile colitis though inflammatory colitis can have a similar appearance and the sigmoid diverticulitis could also be present. Underlying sigmoid lesion cannot be excluded. Uterus is still present, the endometrium cannot be accurately evaluated with CT. No suspicious cystic mass noted in the pelvis there is dependent free fluid No suspicious solid organ abnormality Electronically Signed: Nader Hall MD at 11:41 EDT , Service support ,
[2018-09-07] MEDS: Sertraline 100 MG Tablet 200 MG PO (08:24)
[2018-09-07] MEDS: Aspirin E.C. 81 MG Tablet PO (08:24)
[2018-09-07 09:06] LABS: Absolute Lymphocyte Count 0.48 X10^3/ul (0.83-4.51); Absolute Neutrophil Count 13.1 X10^3/uL (2.0-7.7); Basophil# 0.03 X10^3/uL; Basophil% 0.2 % (0-1); Hematocrit 37.6 % (37-47); Hemoglobin 12.5 g/dl (12.0-15.0); Lymphocyte # 0.48 X10^3/ul (4.0); Lymphocyte % 3.5 % (19-41); Mean Corp Hgb Conc 33.2 g/gl (32-36); Mean Corpuscular Hgb 29.3 pg (27.0-32.0); Mean Corpuscular Volume 88.3 fL (81-99); Mean Platelet Vol. 10.5 fl (6.2-12.0); Monocyte% 0.7 % (0-10); Neutrophil # 13.13 X10^3/uL (2.7-7.7); Neutrophil % 95.3 % (47-70); Platelet Count 236 K/mm3 (150-450); RBC Distribution Width CV 15.3 % (11.6-14.6); RBC Distribution Width SD 49.2 fl (35.1-43.9); Red Blood Count 4.26 M/mm3 (4.2-5.4); White Blood Count 13.8 K/mm3 (4.4-11.0)
[2018-09-07 09:11] LABS: Differential Indicated SCAN CRITERIA MET; POSITIVE COUNT NO; POSITIVE DIFFERENTIAL YES; POSITIVE MORPHOLOGY NO
--- NOTE | 2018-09-07 09:14 | PCM.CONS.GEN ---
Problem List (1) Abdominal pain Status: Acute Reason for Consult Date of Consultation: 09/07/18 Reason for Consultation: Abdominal pain. History of recurrent diverticulitis. History of Present Illness: The patient is a 68 year old F who presented on 09/05 with dizziness and low blood pressure x 2 days. Patient also noted she was in the ED on 09/02 for angioedema and hives. She has been on cipro and Flagyl as an outpatient x 2 courses for diverticulitis. Patient has noted improvement in abdominal pain however she also noted the lip swelling, low blood pressure and hives. Antibiotics were stopped and patient was given prednisone at the ED on 09/02 and discharged to home. Patient has been having diverticulitis symptoms since 08/04 when she presented to the ED and had a CT scan of the ab/pel which demonstrated acute diverticulitis. Patient followed with Dr. Goodman as an outpatient. Patient was slowly improving on antibiotics, however she continued to eat a regular diet. It was recommended she decrease her diet to liquids only and possible repeat the CT scan or have a barium enema in 2 weeks. Patient followed up with Dr. Goodman on 08/15 and was markedly improved. She was told to call into our office in 1 week for an update on her symptoms. Patient called and was placed back on Cipro and Flagyl. The plan was to perform a colonoscopy once her diverticulitis symptoms were resolved. Patient has since noted nausea, hives, lip swelling and low blood pressure. Patient noted she has had diarrhea for 2 days with nausea, denies vomiting, and denies fever. She noted her abdominal pain had increased starting yesterday. She has had a lack of appetite and [address] Ronquillo performed the patient's last colonoscopy in July 2016. Patient was noted to have diverticulosis of the recto-sigmoid, sigmoid, descending and at the splenic flexure. No polyps or specimens collected. Recommend repeat in 10 years. Patient also noted she did have an episode of diverticulitis 2 years ago right before this colonoscopy. She was hospitalized and treated with oral antibiotics. She did not see a surgeon at that time. Patient denies previous abdominal surgeries. She denies alcohol use and smoking. Patient also has a history of SVT and hypertension. She follows with Dr. Sotelo for cardiology. Past Medical History Past Medical History (Chronic Problems): Chronic Problems (Last Reviewed 09/07/18 @ 10:12 by Shantel James PA-C) Angioedema (Chronic) History of left heart catheterization (Chronic 04/13/18) Normal coronary arteries, EF 75% per [facility] Dr. Sotelo [facility] Hyperlipidemia (Chronic) Hypertension (Chronic) SVT (supraventricular tachycardia) (Chronic) Medical History: Medical History (Last Reviewed 09/07/18 @ 10:12 by Shantel James PA-C) Dyspnea on exertion (Acute) R06.09 Abnormal stress echo (Acute) R94.39 Hyperlipidemia (Chronic) E78.5 Hypertension (Chronic) I10 SVT (supraventricular tachycardia) (Chronic) I47.1 Anxiety and depression F41.9, F32.9 Diverticulitis K57.92 Allergies bacitracin [From Neosporin ([id number])] Allergy (Verified 09/05/18 19:26) Rash bee venom protein (honey bee) Allergy (Verified 09/05/18 19:27) Anaphylaxis ciprofloxacin [From Cipro] Allergy (Verified 09/05/18 19:26) Swelling, hives metronidazole [From Flagyl] Allergy (Verified 09/05/18 19:26) Swelling, hives neomycin [From Neosporin ([id number])] Allergy (Verified 09/05/18 19:26) Rash polymyxin B [From Neosporin ([id number])] Allergy (Verified 09/05/18 19:26) Rash Home Medications: Ambulatory Orders Medication Instructions Recorded Fenofibrate [Tricor] 145 mg PO DAILY 04/23/16 Quinapril/Hydrochlorothiazide 1 tab PO DAILY 04/23/16 [Accuretic 20-12.5 MG Tablet] sertraline 100 mg tablet 200 mg PO DAILY tab 03/13/18 Aspirin [Aspir-Low] 81 mg PO DAILY 09/05/18 Diltiazem CD [Cardizem CD] 120 mg PO DAILY 09/05/18 Prednisone [Deltasone] 40 mg PO DAILY 09/05/18 Surgical History: Surgical History (Last Reviewed 09/07/18 @ 10:13 by Shantel James PA-C) History of left heart catheterization (Chronic) Onset Date: 04/13/18 Z98.890 Normal coronary arteries, EF 75% per [facility] Dr. Sotelo [facility] H/O sinus surgery Z98.890 H/O tubal ligation Z98.51 History of bunionectomy of left great toe Z98.890 History of carpal tunnel release Z98.890 History of cataract surgery Z98.49 Surgical History: - - Bilateral TMJ, bilateral carpal tunnel surgery, left cataract surgery, diplopia surgery x2, bilateral tubal ligation, left bunionectomy, removal of toenail secondary to severe fungal infection. 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 Maternal Family History: Family History (Last Reviewed 09/07/18 @ 10:13 by Shantel James PA-C) Mother CVA (cerebral vascular accident) Myocardial infarction Brother CAD (coronary artery disease) Father CAD (coronary artery disease) History Items: - - Patient notes a maternal family history of heart disease, diabetes as well as stroke, age 73. Sibling Family History: Family History (Last Reviewed 09/07/18 @ 10:13 by Shantel James PA-C) Mother CVA (cerebral vascular accident) Myocardial infarction Brother CAD (coronary artery disease) Father CAD (coronary artery disease) History Items: - - Patient notes a history of a brother with history of heart disease, status post CABG, recently passed ~ 1 week prior to current presentation secondary to history of a fall with unfortunate brain bleed. Review of Systems Constitutional: Reports: Anorexia, Fever, Weakness, Weight Change, Fatigue HEENT: Denies: Head Aches, Sinus Congestion, Sinus Drainage Cardiovascular: Denies: Chest Pain, Palpitations Respiratory: Denies: Cough, Shortness of breath at rest, Sputum production Gastrointestinal: Reports: Abdominal Pain, Diarrhea, Nausea. Denies: Hematemesis, Hematochezia, Melena, Vomiting Genitourinary: Reports: Dysuria, Frequency Musculoskeletal: Denies: Joint Pain, Joint Tenderness Skin: Denies: Rash, Wounds Neurological: Reports: Balance problems Psychiatric: Reports: Anxiety, Depression Hematologic/ Lymphatic: Denies: Easy Bruising, Easy Bleeding, Hx of blood clot, Hx of blood transfusion Patient Problems: Active and Suspected Problems (Last Reviewed 09/07/18 @ 10:12 by Shantel James PA-C) Hypotension (Acute) Abdominal pain (Acute) - Physical Exam General: Alert, Oriented x3, Cooperative HEENT: Atraumatic, PERRLA, EOMI, Normocephalic Neck: Supple, No JVD, Negative Carotid Bruits Lungs: Clear to auscultation, Normal air movement Cardiovascular: Regular Rhythm, No murmurs, Tachycardic Abdomen: Hypoactive Bowel Sounds, Distended - slightly, Guarding, Tender - generalized however especially in the RLQ and LLQ Extremities: No edema, Capillary Refill Less than 3 Seconds Skin: No rashes, No breakdown Musculoskeletal: No Tenderness to Palpation of Joints or Extremities Neurological: Neuro grossly intact Psych/Mental Status: Normal Affect, Appropriate Vital Signs Temp Pulse Resp BP Pulse Ox 102.2 F H 109 H 20 H 114/70 92 09/07/18 08:09 09/07/18 08:09 09/07/18 08:09 09/07/18 08:09 09/07/18 08:09 Oxygen Flow Rate (L/min) 2 Oxygen Delivery Method Room Air Weight: 143 lb 4.807 oz Body Mass Index (BMI) 24.8 Intake and Output for Last 24 Hours 09/05/18 09/06/18 09/07/18 23:59 23:59 23:59 Intake Total 2675.1 / 2675.1 316 / 316 Output Total 1125 / 1125 Balance 1550.1 / 1550.1 316 / 316 Microbiology Past 72 Hours 09/05/18 Unknown Urine Culture - Preliminary Urine, Random Presumptive E. coli Laboratory Tests Past 24 Hrs 09/07/18 09/07/18 08:58 08:58 WBC 13.8 H RBC 4.26 Hgb 12.5 Hct 37.6 MCV 88.3 MCH 29.3 MCHC 33.2 RDW 15.3 H RDW Differential 49.2 H Plt Count 236 MPV 10.5 Immature Gran % (Auto) 0.300 Neut % (Auto) 95.3 H Lymph % (Auto) 3.5 L [place] % (Auto) 0.7 Eos % (Auto) 0.0 Baso % (Auto) 0.2 Absolute Neuts (auto) 13.1 H Absolute Lymphs (auto) 0.48 L Total Counted Pending Sodium Pending Potassium Pending Chloride Pending Carbon Dioxide Pending Anion Gap Pending BUN Pending Creatinine Pending Est GFR (MDRD) Af Amer Pending Est GFR (MDRD) Non-Af Pending BUN/Creatinine Ratio Pending Glucose Pending Calcium Pending Total Bilirubin Pending AST Pending ALT Pending Alkaline Phosphatase Pending Total Protein Pending Albumin Pending Assessment/Plan All Active Problems (Last Reviewed 09/07/18 @ 10:12 by Shantel James PA-C) Hypotension (Acute) Abdominal pain (Acute) Dyspnea on exertion (Acute) Abnormal stress echo (Acute) I have been consulted in conjunction with Dr. Goodman. Impression: Abdominal pain etiology likely acute diverticulitis. Possible perforated diverticulitis. Plan: Patient discussed and known to Dr. Goodman. Recommend obtaining CT scan of the ab/pel with contrast. Patient receiving Vanco. It was discussed with the patient and that if CT scan demonstrates perforation of diverticula in conjunction with failed outpatient antibiotic therapy, patient may need to have a diagnostic laparoscopy with colon resection. Patient also has a UTI. Patient and her have had the opportunity to ask and have questions answered. Patient verbally understands and agrees with the plan. Thank you for allowing us to participate in this patient's care. Code Visit Office Visits / Consults: [id number] IP Consult L3
--- NOTE | 2018-09-07 09:18 | CON.PCM_ITS ---
Problem List (1) Abdominal pain Status: Acute Reason for Consult Date of Consultation: 09/07/18 Reason for Consultation: Abdominal pain. History of recurrent diverticulitis. History of Present Illness: The patient is a 68 year old F who presented on 09/05 with dizziness and low blood pressure x 2 days. Patient also noted she was in the ED on 09/02 for angioedema and hives. She has been on cipro and Flagyl as an outpatient x 2 c ourses for diverticulitis. Patient has noted improvement in abdominal pain however she also noted the lip swelling, low blood pressure and hives. Antibiotics were stopped and patient was given prednisone at the ED on 09/02 and discharged to home. Patient has been having diverticulitis symptoms since 08/04 when she presented to the ED and had a CT scan of the ab/pel which demonstrated acute diverticulitis. Patient followed with Dr. Goodman as an outpatient. Patient was slowly improving on antibiotics, however she continued to eat a regular diet. It was recommended she decrease her diet to liquids only and possible repeat the CT scan or have a barium enema in 2 weeks. Patient followed up with Dr. Goodman on 08/15 and was markedly improved. She was told to call into our office in 1 week for an update on her symptoms. Patient called and was placed back on Cipro and Flagyl. The plan was to perform a colonoscopy once her diverticulitis symptoms were resolved. Patient has since noted nausea, hives, lip swelling and low blood pressure. Patient noted she has had diarrhea for 2 days with nausea, denies vomiting, and denies fever. She noted her abdominal pain had increased starting yesterday. She has had a lack of appetite and [address] Ronquillo performed the patient's last colonoscopy in July 2016. Patient was noted to have diverticulosis of the recto-sigmoid, sigmoid, descending and at the splenic flexure. No polyps or specimens collected. Recommend repeat in 10 years. Patient also noted she did have an episode of diverticulitis 2 years ago right before this colonoscopy. She was hospitalized and treated with oral antibiotics. She did not see a surgeon at that time. Patient denies previous abdominal surgeries. She denies alcohol use and smoking. Patient also has a history of SVT and hypertension. She follows with Dr. Sotelo for cardiology. Past Medical History Past Medical History (Chronic Problems): Chronic Problems (Last Reviewed 09/07/18 @ 10:12 by Shantel James PA-C) Angioedema (Chronic) History of left heart catheterization (Chronic 04/13/18) Normal coronary arteries, EF 75% per [facility] Dr. Sotelo [facility] Hyperlipidemia (Chronic) Hypertension (Chronic) SVT (supraventricular tachycardia) (Chronic) Medical History: Medical History (Last Reviewed 09/07/18 @ 10:12 by Shantel James PA-C) Dyspnea on exertion (Acute) R06.09 Abnormal stress echo (Acute) R94.39 Hyperlipidemia (Chronic) E78.5 Hypertension (Chronic) I10 SVT (supraventricular tachycardia) (Chronic) I47.1 Anxiety and depression F41.9, F32.9 Diverticulitis K57.92 Allergies bacitracin [From Neosporin ([id number])] Allergy (Verified 09/05/18 19:26) Rash bee venom protein (honey bee) Allergy (Verified 09/05/18 19:27) Anaphylaxis ciprofloxacin [From Cipro] Allergy (Verified 09/05/18 19:26) Swelling, hives metronidazole [From Flagyl] Allergy (Verified 09/05/18 19:26) Swelling, hives neomycin [From Neosporin ([id number])] Allergy (Verified 09/05/18 19:26) Rash polymyxin B [From Neosporin ([id number])] Allergy (Verified 09/05/18 19:26) Rash Home Medications: Ambulatory Orders Medication Instructions Recorded Fenofibrate [Tricor] 145 mg PO DAILY 04/23/16 Quinapril/Hydrochlorothiazide 1 tab PO DAILY 04/23/16 [Accuretic 20-12.5 MG Tablet] sertraline 100 mg tablet 200 mg PO DAILY tab 03/13/18 Aspirin [Aspir-Low] 81 mg PO DAILY 09/05/18 Diltiazem CD [Cardizem CD] 120 mg PO DAILY 09/05/18 Prednisone [Deltasone] 40 mg PO DAILY 09/05/18 Surgical History: Surgical History (Last Reviewed 09/07/18 @ 10:13 by Shantel James PA-C) History of left heart catheterization (Chronic) Onset Date: 04/13/18 Z98.890 Normal coronary arteries, EF 75% per [facility] Dr. Sotelo [facility] H/O sinus surgery Z98.890 H/O tubal ligation Z98.51 History of bunionectomy of left great toe Z98.890 History of carpal tunnel release Z98.890 History of cataract surgery Z98.49 Surgical History: - - Bilateral TMJ, bilateral carpal tunnel surgery, left cataract surgery, diplopia surgery x2, bilateral tubal ligation, left bunionectomy, removal of toenail secondary to severe fungal infection. Psychiatric History: Anxiety, Depression [employer] History: No pertinent [employer] history Lives: Spouse/ Significant Other Smoking Status: Never smoker Tobacco Use: Non-smoker Alcohol: None Drugs: None - *Family History Paternal Family History: Family History (Last Reviewed 09/07/18 @ 10:13 by Shantel James PA-C) Mother CVA (cerebral vascular accident) Myocardial infarction Brother CAD (coronary artery disease) Father CAD (coronary artery disease) History Items: Heart Disease, - - Patient notes a paternal family history of heart disease, diabetes, CHF, [place], age 61 secondary to heart attack consultations. Maternal Family History: Family History (Last Reviewed 09/07/18 @ 10:13 by Shantel James PA-C) Mother CVA (cerebral vascular accident) Myocardial infarction Brother CAD (coronary artery disease) Father CAD (coronary artery disease) History Items: - - Patient notes a maternal family history of heart disease, diabetes as well as stroke, age 73. Sibling Family History: Family History (Last Reviewed 09/07/18 @ 10:13 by Shantel James PA-C) Mother CVA (cerebral vascular accident) Myocardial infarction Brother CAD (coronary artery disease) Father CAD (coronary artery disease) History Items: - - Patient notes a history of a brother with history of heart disease, status post CABG, recently passed ~ 1 week prior to current presentation secondary to history of a fall with unfortunate brain bleed. Review of Systems Constitutional: Reports: Anorexia, Fever, Weakness, Weight Change, Fatigue HEENT: Denies: Head Aches, Sinus Congestion, Sinus Drainage Cardiovascular: Denies: Chest Pain, Palpitations Respiratory: Denies: Cough, Shortness of breath at rest, Sputum production Gastrointestinal: Reports: Abdominal Pain, Diarrhea, Nausea. Denies: Hematemesis, Hematochezia, Melena, Vomiting Genitourinary: Reports: Dysuria, Frequency Musculoskeletal: Denies: Joint Pain, Joint Tenderness Skin: Denies: Rash, Wounds Neurological: Reports: Balance problems Psychiatric: Reports: Anxiety, Depression Hematologic/ Lymphatic: Denies: Easy Bruising, Easy Bleeding, Hx of blood clot, Hx of blood transfusion Patient Problems: Active and Suspected Problems (Last Reviewed 09/07/18 @ 10:12 by Shantel James PA-C) Hypotension (Acute) Abdominal pain (Acute) - Physical Exam General: Alert, Oriented x3, Cooperative HEENT: Atraumatic, PERRLA, EOMI, Normocephalic Neck: Supple, No JVD, Negative Carotid Bruits Lungs: Clear to auscultation, Normal air movement Cardiovascular: Regular Rhythm, No murmurs, Tachycardic Abdomen: Hypoactive Bowel Sounds, Distended - slightly, Guarding, Tender - generalized however especially in the RLQ and LLQ Extremities: No edema, Capillary Refill Less than 3 Seconds Skin: No rashes, No breakdown Musculoskeletal: No Tenderness to Palpation of Joints or Extremities Neurological: Neuro grossly intact Psych/Mental Status: Normal Affect, Appropriate Vital Signs Temp Pulse Resp BP Pulse Ox 102.2 F H 109 H 20 H 114/70 92 09/07/18 08:09 09/07/18 08:09 09/07/18 08:09 09/07/18 08:09 09/07/18 08:09 Oxygen Flow Rate (L/min) 2 Oxygen Delivery Method Room Air Weight: 143 lb 4.807 oz Body Mass Index (BMI) 24.8 Intake and Output for Last 24 Hours 09/05/18 09/06/18 09/07/18 23:59 23:59 23:59 Intake Total 2675.1 / 2675.1 316 / 316 Output Total 1125 / 1125 Balance 1550.1 / 1550.1 316 / 316 Microbiology Past 72 Hours 09/05/18 Unknown Urine Culture - Preliminary Urine, Random Presumptive E. coli Laboratory Tests Past 24 Hrs 09/07/18 09/07/18 08:58 08:58 WBC 13.8 H RBC 4.26 Hgb 12.5 Hct 37.6 MCV 88.3 MCH 29.3 MCHC 33.2 RDW 15.3 H RDW Differential 49.2 H Plt Count 236 MPV 10.5 Immature Gran % (Auto) 0.300 Neut % (Auto) 95.3 H Lymph % (Auto) 3.5 L [place] % (Auto) 0.7 Eos % (Auto) 0.0 Baso % (Auto) 0.2 Absolute Neuts (auto) 13.1 H Absolute Lymphs (auto) 0.48 L Total Counted Pending Sodium Pending Potassium Pending Chloride Pending Carbon Dioxide Pending Anion Gap Pending BUN Pending Creatinine Pending Est GFR (MDRD) Af Amer Pending Est GFR (MDRD) Non-Af Pending BUN/Creatinine Ratio Pending Glucose Pending Calcium Pending Total Bilirubin Pending AST Pending ALT Pending Alkaline Phosphatase Pending Total Protein Pending Albumin Pending Assessment/Plan All Active Problems (Last Reviewed 09/07/18 @ 10:12 by Shantel James PA-C) Hypotension (Acute) Abdominal pain (Acute) Dyspnea on exertion (Acute) Abnormal stress echo (Acute) I have been consulted in conjunction with Dr. Goodman. Impression: Abdominal pain etiology likely acute diverticulitis. Possible perforated diverticulitis. Plan: Patient discussed and known to Dr. Goodman. Recommend obtaining CT scan of the ab/pel with contrast. Patient receiving Vanco. It was discussed with the patient and that if CT scan demonstrates perforation of diverticula in conjunction with failed outpatient antibiotic therapy, patient may need to have a diagnostic laparoscopy with colon resection. Patient also has a UTI. Patient and her have had the opportunity to ask and have questions answered. Patient verbally understands and agrees with the plan. Thank you for allowing us to participate in this patient's care. Code Visit Office Visits / Consults: [id number] IP Consult L3
[2018-09-07 09:23] LABS: ALB/GLOB Ratio 0.8 RATIO (0.9-2.4); AST(SGOT) 26 U/L (15-37); Alanine Aminotransfer ALT/SGPT 13 U/L (13-56); Albumin, Serum 2.5 g/dL (3.2-5.0); Alkaline Phosphatase 31 U/L (45-117); Anion Gap 8 (5-15); BUN 23 mg/dL (7-18); BUN/Creat Ratio 20.4 RATIO (10-20); Calcium,Total 8.2 mg/dL (8.5-10.1); Chloride 107 mmol/L (98-107); Creatinine, Serum 1.13 mg/dL (0.55-1.02); EST Glomerular Filtration Rate 51 mL/min (>60); Est Glom Filt Rate - Afr Amer 61 mL/min (>60); Globulin 3.1 g/dL (2.2-4.2); Glucose 103 mg/dL (74-106); Potassium 3.1 mmol/L (3.5-5.1); Protein, Total 5.6 g/dL (6.4-8.2); Sodium Level 139 mmol/L (136-145)
[2018-09-07 09:32] LABS: Hypochromasia RARE; Platelet Estimate ADEQUATE (ADEQ); Platelet Morphology LARGE
[2018-09-07] MEDS: Lactated Ringers 1,000 ML 100 ML IV ×2 (10:05→23:25)
--- NOTE | 2018-09-07 10:13 | PCM.PN.PUL ---
Patient Problems: Active and Suspected Problems (Last Reviewed 09/07/18 @ 10:12 by Shantel James PA-C) Hypotension (Acute) Abdominal pain (Acute) Subjective: The patient was seen and examined at the bedside this morning. Events from the last 24 hours have been reviewed. The patient did spike a fever overnight with a T-max of 102 ?F as of this morning. She is also quite tachycardic this morning. Her white blood cell count increased to 14,000. Potassium is low at 3.1. Creatinine is stable. Given the results of the patient's urine cultures, she was transitioned to meropenem as of this morning. The patient has been experiencing abdominal pain and loose bowel movements. C. difficile PCR and repeat CT abdomen and pelvis are currently pending. Objective: The patient's most recent lab work, culture data and imaging studies have all been personally reviewed. Urine culture was positive for an ESBL E. coli. Blood cultures are pending. CTA chest revealed mild to moderate aortic coarctation. No PE was identified. The lung parenchyma was grossly clear. The patient was noted to have an abnormal gallbladder. - Physical Exam General: Alert, Cooperative, No apparent distress HEENT: Atraumatic, PERRLA, Normocephalic Oral: No Gingival or Mucosal Lesions/ Ulcerations Neck: Supple, No Nodes, Trachea Midline Lungs: Normal air movement, No rhonchi, No wheeze, No rales Cardiovascular: Regular rate, Regular Rhythm, Normal S1, Normal S2, No murmurs Abdomen: Soft, Hyperactive Bowel Sounds, Tender Extremities: No clubbing, No cyanosis, No edema Skin: No breakdown Musculoskeletal: No Tenderness to Palpation of Joints or Extremities Lymphatic: No Cervical, Supraclavicular, or Inguinal Adenopathy Neurological: Neuro grossly intact Psych/Mental Status: Normal Affect, Appropriate Vital Signs Temp Pulse Resp BP Pulse Ox 98.8 F 137 H 18 107/71 92 09/07/18 10:00 09/07/18 10:00 09/07/18 10:00 09/07/18 10:09/07/18 10:00 Oxygen Flow Rate (L/min) 2 Oxygen Delivery Method Room Air Weight: 143 lb 4.807 oz Body Mass Index (BMI) 24.8 Intake and Output for Last 24 Hours 09/05/18 09/06/18 09/07/18 23:59 23:59 23:59 Intake Total 2675.1 / 2675.1 316 / 316 Output Total 1125 / 1125 Balance 1550.1 / 1550.1 316 / 316 Microbiology Past 72 Hours 09/05/18 Unknown Urine Culture - Preliminary Urine, Random Presumptive E. coli Laboratory Tests Past 24 Hrs 09/07/18 09/07/18 08:58 08:58 WBC 13.8 H RBC 4.26 Hgb 12.5 Hct 37.6 MCV 88.3 MCH 29.3 MCHC 33.2 RDW 15.3 H RDW Differential 49.2 H Plt Count 236 MPV 10.5 Immature Gran % (Auto) 0.300 Neut % (Auto) 95.3 H Lymph % (Auto) 3.5 L [place] % (Auto) 0.7 Eos % (Auto) 0.0 Baso % (Auto) 0.2 Absolute Neuts (auto) 13.1 H Absolute Lymphs (auto) 0.48 L Total Counted Not Reportable Platelet Estimate ADEQUATE Plt Morphology Comment LARGE Hypochromasia RARE Sodium 139 Potassium 3.1 L Chloride 107 Carbon Dioxide 24.0 Anion Gap 8 BUN 23 H Creatinine 1.13 H Estim Creat Clear Calc 40.00 Est GFR (MDRD) Af Amer 61 Est GFR (MDRD) Non-Af 51 L BUN/Creatinine Ratio 20.4 H Glucose 103 Calcium 8.2 L Total Bilirubin 0.30 AST 26 ALT 13 Alkaline Phosphatase 31 L Total Protein 5.6 L Albumin 2.5 L Globulin 3.1 Albumin/Globulin Ratio 0.8 L Clinical Impression(s) from Imaging Studies Chest X-Ray 09/05/18 14:14 IMPRESSION: No acute cardiopulmonary findings Electronically Signed: Eliseo Raza DO at 14:45 EDT Tel , Service support , Chest CTA 09/05/18 15:10 IMPRESSION: No evidence for PE. Mild to moderate aortic coarctation. COPD. Atelectasis or scarring in the posterior lung bases. Electronically Signed: Jose Jacobo MD at 16:07 EDT , Service support , Medical Necessity - Tobacco Use Smoking Status: Never smoker Tobacco Use: Non-smoker Assessment/Plan All Active Problems (Last Reviewed 09/07/18 @ 10:12 by Shantel James PA-C) Hypotension (Acute) Abdominal pain (Acute) Dyspnea on exertion (Acute) Abnormal stress echo (Acute) RECOMMENDATIONS: 1. Await results of CT abdomen. 2. Continue empiric treatment for C. difficile colitis, pending PCR results. 3. Agree with broad-spectrum antimicrobials, given ESBL E. coli isolated from urine culture. 4. Continue to hold home antihypertensive/diuretic regimen. 5. Continue appropriate DVT prophylaxis. IMPRESSIONS: 1. Hypovolemic shock The patient presented to the emergency department with hypotension in the setting of GI losses and decreased p.o. intake. Unfortunately, in light of the aforementioned, the patient was still taking her home antihypertensives/diuretics. She did transiently require administration of vasopressor support. I do suspect that her hypotension was the consequence of intravascular volume depletion coupled with the medication effect of her antihypertensives. I do not suspect that the patient had an acute anaphylactic reaction. The patient has remained hemodynamically stable following volume resuscitation. 2. ESBL E. coli cystitis Antibiotics were broadened this morning, following speciation of the patient's urine culture. Continue meropenem accordingly. 3. Abdominal pain/recurrent diverticulitis Repeat CT abdomen is currently pending. Surgery is following. Clinical concern for potential C. difficile colitis. Empiric treatment with p.o. vancomycin was initiated. 4. Acute on chronic kidney disease Likely prerenal in etiology, as the patient's creatinine has improved with volume expansion. Urine output is appropriate. No indication for renal replacement therapy. 5. Hypokalemia Electrolyte repletion as ordered. Recheck levels in the morning. 6. Hypertension/hyperlipidemia/depression/anxiety Complicates care, management, recovery and prognosis. Continue to hold home antihypertensives for now. This note was generated with [employer] dictation software. It may contain incorrect words, spelling, and punctuation that were not noted in checking the note before signing. Code Visit Inpatient E&M: 89810 Subs Hosp L2
--- NOTE | 2018-09-07 10:18 | PN_ITS ---
Patient Problems: Active and Suspected Problems (Last Reviewed 09/07/18 @ 10:12 by Shantel James PA-C) Hypotension (Acute) Abdominal pain (Acute) Subjective: The patient was seen and examined at the bedside this morning. Events from the last 24 hours have been reviewed. The patient did spike a fever overnight with a T-max of 102 ?F as of this morning. She is also quite tachycardic this morning. Her white blood cell count increased to 14,000. Potassium is low at 3.1. Creatinine is stable. Given the results of the patient's urine cultures, she was transitioned to meropenem as of this morning. The patient has been experiencing abdominal pain and loose bowel movements. C. difficile PCR and repeat CT abdomen and pelvis are currently pending. Objective: The patient's most recent lab work, culture data and imaging studies have all been personally reviewed. Urine culture was positive for an ESBL E. coli. Blood cultures are pending. CTA chest revealed mild to moderate aortic coarctation. No PE was identified. The lung parenchyma was grossly clear. The patient was noted to have an abnormal gallbladder. - Physical Exam General: Alert, Cooperative, No apparent distress HEENT: Atraumatic, PERRLA, Normocephalic Oral: No Gingival or Mucosal Lesions/ Ulcerations Neck: Supple, No Nodes, Trachea Midline Lungs: Normal air movement, No rhonchi, No wheeze, No rales Cardiovascular: Regular rate, Regular Rhythm, Normal S1, Normal S2, No murmurs Abdomen: Soft, Hyperactive Bowel Sounds, Tender Extremities: No clubbing, No cyanosis, No edema Skin: No breakdown Musculoskeletal: No Tenderness to Palpation of Joints or Extremities Lymphatic: No Cervical, Supraclavicular, or Inguinal Adenopathy Neurological: Neuro grossly intact Psych/Mental Status: Normal Affect, Appropriate Vital Signs Temp Pulse Resp BP Pulse Ox 98.8 F 137 H 18 107/71 92 09/07/18 10:00 09/07/18 10:00 09/07/18 10:00 09/07/18 10:09/07/18 10:00 Oxygen Flow Rate (L/min) 2 Oxygen Delivery Method Room Air Weight: 143 lb 4.807 oz Body Mass Index (BMI) 24.8 Intake and Output for Last 24 Hours 09/05/18 09/06/18 09/07/18 23:59 23:59 23:59 Intake Total 2675.1 / 2675.1 316 / 316 Output Total 1125 / 1125 Balance 1550.1 / 1550.1 316 / 316 Microbiology Past 72 Hours 09/05/18 Unknown Urine Culture - Preliminary Urine, Random Presumptive E. coli Laboratory Tests Past 24 Hrs 09/07/18 09/07/18 08:58 08:58 WBC 13.8 H RBC 4.26 Hgb 12.5 Hct 37.6 MCV 88.3 MCH 29.3 MCHC 33.2 RDW 15.3 H RDW Differential 49.2 H Plt Count 236 MPV 10.5 Immature Gran % (Auto) 0.300 Neut % (Auto) 95.3 H Lymph % (Auto) 3.5 L [place] % (Auto) 0.7 Eos % (Auto) 0.0 Baso % (Auto) 0.2 Absolute Neuts (auto) 13.1 H Absolute Lymphs (auto) 0.48 L Total Counted Not Reportable Platelet Estimate ADEQUATE Plt Morphology Comment LARGE Hypochromasia RARE Sodium 139 Potassium 3.1 L Chloride 107 Carbon Dioxide 24.0 Anion Gap 8 BUN 23 H Creatinine 1.13 H Estim Creat Clear Calc 40.00 Est GFR (MDRD) Af Amer 61 Est GFR (MDRD) Non-Af 51 L BUN/Creatinine Ratio 20.4 H Glucose 103 Calcium 8.2 L Total Bilirubin 0.30 AST 26 ALT 13 Alkaline Phosphatase 31 L Total Protein 5.6 L Albumin 2.5 L Globulin 3.1 Albumin/Globulin Ratio 0.8 L Clinical Impression(s) from Imaging Studies Chest X-Ray 09/05/18 14:14 IMPRESSION: No acute cardiopulmonary findings Electronically Signed: Eliseo Raza DO at 14:45 EDT Tel , Service support , Chest CTA 09/05/18 15:10 IMPRESSION: No evidence for PE. Mild to moderate aortic coarctation. COPD. Atelectasis or scarring in the posterior lung bases. Electronically Signed: Jose Jacobo MD at 16:07 EDT , Service support , Medical Necessity - Tobacco Use Smoking Status: Never smoker Tobacco Use: Non-smoker Assessment/Plan All Active Problems (Last Reviewed 09/07/18 @ 10:12 by Shantel James PA-C) Hypotension (Acute) Abdominal pain (Acute) Dyspnea on exertion (Acute) Abnormal stress echo (Acute) RECOMMENDATIONS: 1. Await results of CT abdomen. 2. Continue empiric treatment for C. difficile colitis, pending PCR results. 3. Agree with broad-spectrum antimicrobials, given ESBL E. coli isolated from urine culture. 4. Continue to hold home antihypertensive/diuretic regimen. 5. Continue appropriate DVT prophylaxis. IMPRESSIONS: 1. Hypovolemic shock The patient presented to the emergency department with hypotension in the setting of GI losses and decreased p.o. intake. Unfortunately, in light of the aforementioned, the patient was still taking her home antihypertensives/diuretics. She did transiently require administration of vasopressor support. I do suspect that her hypotension was the consequence of intravascular volume depletion coupled with the medication effect of her antihypertensives. I do not suspect that the patient had an acute anaphylactic reaction. The patient has remained hemodynamically stable following volume resuscitation. 2. ESBL E. coli cystitis Antibiotics were broadened this morning, following speciation of the patient's urine culture. Continue meropenem accordingly. 3. Abdominal pain/recurrent diverticulitis Repeat CT abdomen is currently pending. Surgery is following. Clinical concern for potential C. difficile colitis. Empiric treatment with p.o. vancomycin was initiated. 4. Acute on chronic kidney disease Likely prerenal in etiology, as the patient's creatinine has improved with volume expansion. Urine output is appropriate. No indication for renal replacement therapy. 5. Hypokalemia Electrolyte repletion as ordered. Recheck levels in the morning. 6. Hypertension/hyperlipidemia/depression/anxiety Complicates care, management, recovery and prognosis. Continue to hold home antihypertensives for now. This note was generated with [employer] dictation software. It may contain incorrect words, spelling, and punctuation that were not noted in checking the note before signing. Code Visit Inpatient E&M: 42491 Subs Hosp L2
[2018-09-07] MEDS: Potassium Chloride 10mEq/100mL 10 MEQ/100 ML IV.SOLN. 100 MEQ IV BOLUS ×2 (11:56→13:16)
[2018-09-07] MEDS: Enoxaparin 30 MG/0.3 ML Syringe SC (13:16)
[2018-09-07] MEDS: Ensure Clear 120 ML Liquid PO ×3 (13:39→21:20)
--- NOTE | 2018-09-07 16:09 | PCM.PN.HOSP ---
Patient Problems: Active and Suspected Problems (Last Reviewed 09/07/18 @ 10:12 by Shantel James PA-C) Hypotension (Acute) Abdominal pain (Acute) Subjective: Patient had loose bowel movement about 3 times yesterday. Patient also complained of both lower quadrant abdominal, right lower quadrant and left lower quadrant. Patient high fever 102.2 in the morning and last night in 100s [facility] Patient has history of sigmoid diverticulitis, previous CT abdomen of 07/2018 reviewed. Shows sigmoid diverticulitis. Patient had Cipro and Flagyl for 19 days. High suspicion of C. difficile. Repeat CT abdomen with oral contrast ordered. Discussed with surgeon Dr. Goodman and consult requested. Urine culture also showed ESBL E. coli and antibiotic broaden to meropenem. Vitals/I&O's: Vital Signs Temp Pulse Resp BP Pulse Ox 97.3 F L 93 16 110/68 90 09/07/18 12:21 09/07/18 14:49 09/07/18 12:21 09/07/18 12:21 09/07/18 12:21 Oxygen Flow Rate (L/min) 2 Oxygen Delivery Method Room Air Weight: 143 lb 4.807 oz Body Mass Index (BMI) 24.8 Intake and Output for Last 24 Hours 09/05/18 09/06/18 09/07/18 23:59 23:59 23:59 Intake Total 2675.1 / 2675.1 896 / 896 Output Total 1125 / 1125 Balance 1550.1 / 1550.1 896 / 896 General: Alert, Oriented x3, Cooperative HEENT: Atraumatic, PERRLA, EOMI, Normocephalic Neck: Supple, No JVD, Negative Carotid Bruits Lungs: Clear to auscultation, Normal air movement, No rhonchi, No wheeze, No rales Cardiovascular: Regular rate, Regular Rhythm, Normal S1, Normal S2, No murmurs Abdomen: Bowel Sounds Present, Soft, Hyperactive Bowel Sounds, Tender - Tenderness present in right lower and left quadrant abdomen. No guarding or rigidity. Extremities: No edema, Capillary Refill Less than 3 Seconds Skin: No rashes, No breakdown Musculoskeletal: No Tenderness to Palpation of Joints or Extremities, Arthritic Changes Neurological: Cranial nerves II-XII grossly intact Psych/Mental Status: Normal Affect, Appropriate Microbiology Past 72 Hours 09/07/18 13:20 Stool Stool Lactoferrin - Final 09/07/18 13:20 Stool Stool Occult Blood (KARMEN) - Final 09/05/18 Unknown Urine, Random Urine Culture - Preliminary Presumptive E. coli Laboratory Results 09/07/18 08:58: WBC 13.8 H, RBC 4.26, Hgb 12.5, Hct 37.6, MCV 88.3, MCH 29.3, MCHC 33.2, RDW 15.3 H, RDW Differential 49.2 H, Plt Count 236, MPV 10.5, Immature Gran % (Auto) 0.300, Neut % (Auto) 95.3 H, Lymph % (Auto) 3.5 L, Chambers % (Auto) 0.7, Eos % (Auto) 0.0, Baso % (Auto) 0.2, Absolute Neuts (auto) 13.1 H, Absolute Lymphs (auto) 0.48 L, Total Counted Not Reportable, Platelet Estimate ADEQUATE, Plt Morphology Comment LARGE, Hypochromasia RARE 09/07/18 08:58: Sodium 139, Potassium 3.1 L, Chloride 107, Carbon Dioxide 24.0, Anion Gap 8, BUN 23 H, Creatinine 1.13 H, Estim Creat Clear Calc 40.00, Est GFR (MDRD) Af Amer 61, Est GFR (MDRD) Non-Af 51 L, BUN/Creatinine Ratio 20.4 H, Glucose 103, Calcium 8.2 L, Total Bilirubin 0.30, AST 26, ALT 13, Alkaline Phosphatase 31 L, Total Protein 5.6 L, Albumin 2.5 L, Globulin 3.1, Albumin/Globulin Ratio 0.8 L Current Medications Acetaminophen (Tylenol) 650 mg PO Q6H PRN PRN PRN Reason: Non-cardiac pain (mod-severe) Last Admin: 09/07/18 08:22 Dose: 650 mg Hydrocodone Bitart/Acetaminophen ([place] 5mg-325mg) 1 - 2 tablet PO Q6H PRN PRN PRN Reason: MOD-SEVERE PAIN (4-10/10) Al Hydroxide/Mg Hydroxide (Mylanta Ii) 15 - 30 ml PO Q4H PRN PRN PRN Reason: INDIGESTION Last Admin: 09/06/18 19:08 Dose: 30 ml Albuterol Sulfate (Ventolin Aerosols) 2.5 mg INHALATION Q2H PRN PRN PRN Reason: dyspnea, wheezing Aspirin (Ecotrin) 81 mg PO DAILY@0800 [facility] Last Admin: 09/07/18 08:24 Dose: 81 mg Enoxaparin Sodium (Lovenox) 30 mg SC DAILY@1000 [facility] Last Admin: 09/07/18 13:16 Dose: 30 mg Famotidine (Pepcid) 20 mg PO BID [facility] Last Admin: 09/07/18 08:23 Dose: 20 mg Heparin Sodium (Beef Lung) () 50 units IV UD PRN PRN Reason: HEPARIN FLUSH Sodium Chloride () 250 mls @ 15 mls/hr IV .[id number] PRN PRN Reason: SALINE FLUSH Meropenem 500 mg/ Sodium (Chloride) 60 mls @ 100 mls/hr IV Q8 [facility] Last Admin: 09/07/18 14:36 Dose: 100 mls/hr Lactated Ringer's () 1,000 mls @ 100 mls/hr IV .Q10H [facility] Last Admin: 09/07/18 10:05 Dose: 100 mls/hr Magnesium Hydroxide (Milk Of Magnesia) 30 ml PO DAILY PRN PRN PRN Reason: Constipation Nitroglycerin (Nitrostat) 0.4 mg SUBLINGUAL Q5M PRN PRN Reason: CARDIAC/CHEST PAIN Nutritional Formula (Lactose Free) (Ensure Clear) 120 ml PO 4X/DAY [facility] Last Admin: 09/07/18 13:39 Dose: 120 ml Ondansetron HCl (Zofran) 4 mg IV Q8H PRN PRN PRN Reason: NAUSEA/VOMITING Sertraline HCl (Zoloft) 200 mg PO DAILY [facility] Last Admin: 09/07/18 08:24 Dose: 200 mg Sodium Chloride () 5 - 15 ml IV UD PRN PRN Reason: SALINE FLUSH Last Admin: 09/05/18 22:44 Dose: 10 ml Sodium Chloride () 10 - 20 ml IV UD PRN PRN Reason: PICC FLUSH Vancomycin HCl () 125 mg PO Q6 [facility] Last Admin: 09/07/18 11:57 Dose: 125 mg Medical Necessity - Tobacco Use Smoking Status: Never smoker Tobacco Use: Non-smoker Assessment/Plan All Active Problems (Last Reviewed 09/07/18 @ 10:12 by Shantel James, PA-C) Hypotension (Acute) Abdominal pain (Acute) Dyspnea on exertion (Acute) Abnormal stress echo (Acute) This is a 68-year-old female with history of hypertension, dyslipidemia and SVT came to ER with dizziness, lightheadedness, generalized hives, hypotension consistent with anaphylactic shock which required transient IV vasopressin The patient had sudden onset with oropharyngeal and tongue swelling with dizziness, lightheadedness. This happened after almost 20 days of Cipro and Flagyl given for when she did not get better after 10 days course. On the last day of Cipro and Flagyl, patient had nausea, emesis and loose bowel movement along with generalized hives and swelling of lip for which she was started on prednisone and discontinuation of the antibiotics. Patient was admitted in ICU with hypotension, BP 49/32 which increased to 63/47; that necessitated start of vasopressor, vasopressin. The patient was initially admitted in ICU and then transferred to PCU on 09/06. 1. Hypovolemic shock, most probably secondary to hypovolemia from fluid loss and multiple antihypertensive medications: At home, she was on quinapril/HCTZ 20-12.5 mg, Cardizem CD 120 mg. Antihypertensive medications are on hold. Continue Pepcid and Benadryl but discontinue Solu-Medrol in view of ongoing infection. Blood pressure is stable. No tachypnea or hypoxia. 2. ESBL E. coli cystitis : UA is positive of nitrite, bacteria 3+, WBC RBCs 0. Pulmonary culture shows ESBL E. coli. Rocephin is discontinued and started on meropenem. 3. Abdominal pain with diarrhea with suspicion of C. difficile: Stool for lactoferrin is positive, occult blood negative. C. difficile is pending. CT abdomen with oral contrast was done and images reviewed. Diffuse submucosal thickening of majority of, Most notably in sigmoid colon. Pericolonic inflammatory stranding and induration of mesenteric and retroperitoneal fat. This could be sales representative printing paper of sodium colitis or other inflammatory colitis like diverticulitis. General surgery has been consulted. (3) Hypertension: Hold antihypertensive medication as mentioned above. (4) Hyperlipidemia: Holding TriCor. (5) Chronic Kidney Disease Stage III: Admission BUN/Cr 20/1.29, baseline renal function 1.3. Repeat labs loosening BUN/creatinine 18/1.04 back on the baseline. (6) Hx SVT: No market findings on telemetry or EKG. Serial troponin enzymes are negative. On telemetry, normal sinus rhythm. (7) Anxiety and Depression: continue home regimen sertraline. (8) Recent Diverticulitis: Treated w/ 2 rounds abx therapy, as noted reaction to medication which was stopped pior to arrival and initial dose steroids late this past Tuesday. No abdominal pain, nausea/vomiting/abdominal tenderness. Tolerating diet now, stools improved. No clinical GI bleed. (9) DVT prophylaxis SCD, Lovenox. Discontinue if platelet count drops less than 50,000 or hemoglobin less than 8 g% Microbiology Past 72 Hours 09/07/18 13:20 Stool Stool Lactoferrin - Final 09/07/18 13:20 Stool Stool Occult Blood (KARMEN) - Final 09/05/18 Unknown Urine, Random Urine Culture - Preliminary Presumptive E. coli Laboratory Results 09/07/18 08:58: WBC 13.8 H, RBC 4.26, Hgb 12.5, Hct 37.6, MCV 88.3, MCH 29.3, MCHC 33.2, RDW 15.3 H, RDW Differential 49.2 H, Plt Count 236, MPV 10.5, Immature Gran % (Auto) 0.300, Neut % (Auto) 95.3 H, Lymph % (Auto) 3.5 L, Chambers % (Auto) 0.7, Eos % (Auto) 0.0, Baso % (Auto) 0.2, Absolute Neuts (auto) 13.1 H, Absolute Lymphs (auto) 0.48 L, Total Counted Not Reportable, Platelet Estimate ADEQUATE, Plt Morphology Comment LARGE, Hypochromasia RARE 09/07/18 08:58: Sodium 139, Potassium 3.1 L, Chloride 107, Carbon Dioxide 24.0, Anion Gap 8, BUN 23 H, Creatinine 1.13 H, Estim Creat Clear Calc 40.00, Est GFR (MDRD) Af Amer 61, Est GFR (MDRD) Non-Af 51 L, BUN/Creatinine Ratio 20.4 H, Glucose 103, Calcium 8.2 L, Total Bilirubin 0.30, AST 26, ALT 13, Alkaline Phosphatase 31 L, Total Protein 5.6 L, Albumin 2.5 L, Globulin 3.1, Albumin/Globulin Ratio 0.8 L Active Medications Acetaminophen (Tylenol) 650 mg PO Q6H PRN PRN PRN Reason: Non-cardiac pain (mod-severe) Last Admin: 09/07/18 08:22 Dose: 650 mg Hydrocodone Bitart/Acetaminophen ([place] 5mg-325mg) 1 - 2 tablet PO Q6H PRN PRN PRN Reason: MOD-SEVERE PAIN (4-10/10) Al Hydroxide/Mg Hydroxide (Mylanta Ii) 15 - 30 ml PO Q4H PRN PRN PRN Reason: INDIGESTION Last Admin: 09/06/18 19:08 Dose: 30 ml Albuterol Sulfate (Ventolin Aerosols) 2.5 mg INHALATION Q2H PRN PRN PRN Reason: dyspnea, wheezing Aspirin (Ecotrin) 81 mg PO DAILY@0800 [facility] Last Admin: 09/07/18 08:24 Dose: 81 mg Enoxaparin Sodium (Lovenox) 30 mg SC DAILY@1000 [facility] Last Admin: 09/07/18 13:16 Dose: 30 mg Famotidine (Pepcid) 20 mg PO BID [facility] Last Admin: 09/07/18 08:23 Dose: 20 mg Heparin Sodium (Beef Lung) () 50 units IV UD PRN PRN Reason: HEPARIN FLUSH Sodium Chloride () 250 mls @ 15 mls/hr IV .[id number] PRN PRN Reason: SALINE FLUSH Meropenem 500 mg/ Sodium (Chloride) 60 mls @ 100 mls/hr IV Q8 [facility] Last Admin: 09/07/18 14:36 Dose: 100 mls/hr Lactated Ringer's () 1,000 mls @ 100 mls/hr IV .Q10H [facility] Last Admin: 09/07/18 10:05 Dose: 100 mls/hr Magnesium Hydroxide (Milk Of Magnesia) 30 ml PO DAILY PRN PRN PRN Reason: Constipation Nitroglycerin (Nitrostat) 0.4 mg SUBLINGUAL Q5M PRN PRN Reason: CARDIAC/CHEST PAIN Nutritional Formula (Lactose Free) (Ensure Clear) 120 ml PO 4X/DAY [facility] Last Admin: 09/07/18 13:39 Dose: 120 ml Ondansetron HCl (Zofran) 4 mg IV Q8H PRN PRN PRN Reason: NAUSEA/VOMITING Sertraline HCl (Zoloft) 200 mg PO DAILY [facility] Last Admin: 09/07/18 08:24 Dose: 200 mg Sodium Chloride () 5 - 15 ml IV UD PRN PRN Reason: SALINE FLUSH Last Admin: 09/05/18 22:44 Dose: 10 ml Sodium Chloride () 10 - 20 ml IV UD PRN PRN Reason: PICC FLUSH Vancomycin HCl () 125 mg PO Q6 [facility] Last Admin: 09/07/18 11:57 Dose: 125 mg Code Visit Inpatient E&M: 64944 Subs Hosp L3
--- NOTE | 2018-09-07 16:14 | PN_ITS ---
Patient Problems: Active and Suspected Problems (Last Reviewed 09/07/18 @ 10:12 by Shantel James PA-C) Hypotension (Acute) Abdominal pain (Acute) Subjective: Patient had loose bowel movement about 3 times yesterday. Patient also complained of both lower quadrant abdominal, right lower quadrant and left lower quadrant. Patient high fever 102.2 in the morning and last night in 100s [facility] Patient has history of sigmoid diverticulitis, previous CT abdomen of 07/2018 reviewed. Shows sigmoid diverticulitis. Patient had Cipro and Flagyl for 19 days. High suspicion of C. difficile. Repeat CT abdomen with oral contrast ordered. Discussed with surgeon Dr. Goodman and consult requested. Urine culture also showed ESBL E. coli and antibiotic broaden to meropenem. Vitals/I&O's: Vital Signs Temp Pulse Resp BP Pulse Ox 97.3 F L 93 16 110/68 90 09/07/18 12:21 09/07/18 14:49 09/07/18 12:21 09/07/18 12:21 09/07/18 12:21 Oxygen Flow Rate (L/min) 2 Oxygen Delivery Method Room Air Weight: 143 lb 4.807 oz Body Mass Index (BMI) 24.8 Intake and Output for Last 24 Hours 09/05/18 09/06/18 09/07/18 23:59 23:59 23:59 Intake Total 2675.1 / 2675.1 896 / 896 Output Total 1125 / 1125 Balance 1550.1 / 1550.1 896 / 896 General: Alert, Oriented x3, Cooperative HEENT: Atraumatic, PERRLA, EOMI, Normocephalic Neck: Supple, No JVD, Negative Carotid Bruits Lungs: Clear to auscultation, Normal air movement, No rhonchi, No wheeze, No rales Cardiovascular: Regular rate, Regular Rhythm, Normal S1, Normal S2, No murmurs Abdomen: Bowel Sounds Present, Soft, Hyperactive Bowel Sounds, Tender - Tenderness present in right lower and left quadrant abdomen. No guarding or rigidity. Extremities: No edema, Capillary Refill Less than 3 Seconds Skin: No rashes, No breakdown Musculoskeletal: No Tenderness to Palpation of Joints or Extremities, Arthritic Changes Neurological: Cranial nerves II-XII grossly intact Psych/Mental Status: Normal Affect, Appropriate Microbiology Past 72 Hours 09/07/18 13:20 Stool Stool Lactoferrin - Final 09/07/18 13:20 Stool Stool Occult Blood (KARMEN) - Final 09/05/18 Unknown Urine, Random Urine Culture - Preliminary Presumptive E. coli Laboratory Results 09/07/18 08:58: WBC 13.8 H, RBC 4.26, Hgb 12.5, Hct 37.6, MCV 88.3, MCH 29.3, MCHC 33.2, RDW 15.3 H, RDW Differential 49.2 H, Plt Count 236, MPV 10.5, Immature Gran % (Auto) 0.300, Neut % (Auto) 95.3 H, Lymph % (Auto) 3.5 L, Morgan % (Auto) 0.7, Eos % (Auto) 0.0, Baso % (Auto) 0.2, Absolute Neuts (auto) 13.1 H, Absolute Lymphs (auto) 0.48 L, Total Counted Not Reportable, Platelet Estimate ADEQUATE, Plt Morphology Comment LARGE, Hypochromasia RARE 09/07/18 08:58: Sodium 139, Potassium 3.1 L, Chloride 107, Carbon Dioxide 24.0, Anion Gap 8, BUN 23 H, Creatinine 1.13 H, Estim Creat Clear Calc 40.00, Est GFR (MDRD) Af Amer 61, Est GFR (MDRD) Non-Af 51 L, BUN/Creatinine Ratio 20.4 H, Glucose 103, Calcium 8.2 L, Total Bilirubin 0.30, AST 26, ALT 13, Alkaline Phosphatase 31 L, Total Protein 5.6 L, Albumin 2.5 L, Globulin 3.1, Albumin/Globulin Ratio 0.8 L Current Medications Acetaminophen (Tylenol) 650 mg PO Q6H PRN PRN PRN Reason: Non-cardiac pain (mod-severe) Last Admin: 09/07/18 08:22 Dose: 650 mg Hydrocodone Bitart/Acetaminophen ([place] 5mg-325mg) 1 - 2 tablet PO Q6H PRN PRN PRN Reason: MOD-SEVERE PAIN (4-10/10) Al Hydroxide/Mg Hydroxide (Mylanta Ii) 15 - 30 ml PO Q4H PRN PRN PRN Reason: INDIGESTION Last Admin: 09/06/18 19:08 Dose: 30 ml Albuterol Sulfate (Ventolin Aerosols) 2.5 mg INHALATION Q2H PRN PRN PRN Reason: dyspnea, wheezing Aspirin (Ecotrin) 81 mg PO DAILY@0800 [facility] Last Admin: 09/07/18 08:24 Dose: 81 mg Enoxaparin Sodium (Lovenox) 30 mg SC DAILY@1000 [facility] Last Admin: 09/07/18 13:16 Dose: 30 mg Famotidine (Pepcid) 20 mg PO BID [facility] Last Admin: 09/07/18 08:23 Dose: 20 mg Heparin Sodium (Beef Lung) () 50 units IV UD PRN PRN Reason: HEPARIN FLUSH Sodium Chloride () 250 mls @ 15 mls/hr IV .[id number] PRN PRN Reason: SALINE FLUSH Meropenem 500 mg/ Sodium (Chloride) 60 mls @ 100 mls/hr IV Q8 [facility] Last Admin: 09/07/18 14:36 Dose: 100 mls/hr Lactated Ringer's () 1,000 mls @ 100 mls/hr IV .Q10H [facility] Last Admin: 09/07/18 10:05 Dose: 100 mls/hr Magnesium Hydroxide (Milk Of Magnesia) 30 ml PO DAILY PRN PRN PRN Reason: Constipation Nitroglycerin (Nitrostat) 0.4 mg SUBLINGUAL Q5M PRN PRN Reason: CARDIAC/CHEST PAIN Nutritional Formula (Lactose Free) (Ensure Clear) 120 ml PO 4X/DAY [facility] Last Admin: 09/07/18 13:39 Dose: 120 ml Ondansetron HCl (Zofran) 4 mg IV Q8H PRN PRN PRN Reason: NAUSEA/VOMITING Sertraline HCl (Zoloft) 200 mg PO DAILY [facility] Last Admin: 09/07/18 08:24 Dose: 200 mg Sodium Chloride () 5 - 15 ml IV UD PRN PRN Reason: SALINE FLUSH Last Admin: 09/05/18 22:44 Dose: 10 ml Sodium Chloride () 10 - 20 ml IV UD PRN PRN Reason: PICC FLUSH Vancomycin HCl () 125 mg PO Q6 [facility] Last Admin: 09/07/18 11:57 Dose: 125 mg Medical Necessity - Tobacco Use Smoking Status: Never smoker Tobacco Use: Non-smoker Assessment/Plan All Active Problems (Last Reviewed 09/07/18 @ 10:12 by Shantel James, PA-C) Hypotension (Acute) Abdominal pain (Acute) Dyspnea on exertion (Acute) Abnormal stress echo (Acute) This is a 68-year-old female with history of hypertension, dyslipidemia and SVT came to ER with dizziness, lightheadedness, generalized hives, hypotension consistent with anaphylactic shock which required transient IV vasopressin The patient had sudden onset with oropharyngeal and tongue swelling with dizziness, lightheadedness. This happened after almost 20 days of Cipro and Flagyl given for when she did not get better after 10 days course. On the last day of Cipro and Flagyl, patient had nausea, emesis and loose bowel movement along with generalized hives and swelling of lip for which she was started on prednisone and discontinuation of the antibiotics. Patient was admitted in ICU with hypotension, BP 49/32 which increased to 63/47; that necessitated start of vasopressor, vasopressin. The patient was initially admitted in ICU and then transferred to PCU on 09/06. 1. Hypovolemic shock, most probably secondary to hypovolemia from fluid loss and multiple antihypertensive medications: At home, she was on quinapril/HCTZ 20-12.5 mg, Cardizem CD 120 mg. Antihypertensive medications are on hold. Continue Pepcid and Benadryl but discontinue Solu-Medrol in view of ongoing infection. Blood pressure is stable. No tachypnea or hypoxia. 2. ESBL E. coli cystitis : UA is positive of nitrite, bacteria 3+, WBC RBCs 0. Pulmonary culture shows ESBL E. coli. Rocephin is discontinued and started on meropenem. 3. Abdominal pain with diarrhea with suspicion of C. difficile: Stool for l actoferrin is positive, occult blood negative. C. difficile is pending. CT abdomen with oral contrast was done and images reviewed. Diffuse submucosal thickening of majority of, Most notably in sigmoid colon. Pericolonic inflammatory stranding and induration of mesenteric and retroperitoneal fat. This could be digital media representative of sodium colitis or other inflammatory colitis like diverticulitis. General surgery has been consulted. (3) Hypertension: Hold antihypertensive medication as mentioned above. (4) Hyperlipidemia: Holding TriCor. (5) Chronic Kidney Disease Stage III: Admission BUN/Cr 20/1.29, baseline renal function 1.3. Repeat labs loosening BUN/creatinine 18/1.04 back on the baseline. (6) Hx SVT: No market findings on telemetry or EKG. Serial troponin enzymes are negative. On telemetry, normal sinus rhythm. (7) Anxiety and Depression: continue home regimen sertraline. (8) Recent Diverticulitis: Treated w/ 2 rounds abx therapy, as noted reaction to medication which was stopped pior to arrival and initial dose steroids late this past Tuesday. No abdominal pain, nausea/vomiting/abdominal tenderness. Tolerating diet now, stools improved. No clinical GI bleed. (9) DVT prophylaxis SCD, Lovenox. Discontinue if platelet count drops less than 50,000 or hemoglobin less than 8 g% Microbiology Past 72 Hours 09/07/18 13:20 Stool Stool Lactoferrin - Final 09/07/18 13:20 Stool Stool Occult Blood (KARMEN) - Final 09/05/18 Unknown Urine, Random Urine Culture - Preliminary Presumptive E. coli Laboratory Results 09/07/18 08:58: WBC 13.8 H, RBC 4.26, Hgb 12.5, Hct 37.6, MCV 88.3, MCH 29.3, MCHC 33.2, RDW 15.3 H, RDW Differential 49.2 H, Plt Count 236, MPV 10.5, Immature Gran % (Auto) 0.300, Neut % (Auto) 95.3 H, Lymph % (Auto) 3.5 L, Morgan % (Auto) 0.7, Eos % (Auto) 0.0, Baso % (Auto) 0.2, Absolute Neuts (auto) 13.1 H, Absolute Lymphs (auto) 0.48 L, Total Counted Not Reportable, Platelet Estimate ADEQUATE, Plt Morphology Comment LARGE, Hypochromasia RARE 09/07/18 08:58: Sodium 139, Potassium 3.1 L, Chloride 107, Carbon Dioxide 24.0, Anion Gap 8, BUN 23 H, Creatinine 1.13 H, Estim Creat Clear Calc 40.00, Est GFR (MDRD) Af Amer 61, Est GFR (MDRD) Non-Af 51 L, BUN/Creatinine Ratio 20.4 H, Glucose 103, Calcium 8.2 L, Total Bilirubin 0.30, AST 26, ALT 13, Alkaline Phosphatase 31 L, Total Protein 5.6 L, Albumin 2.5 L, Globulin 3.1, Albumin/Globulin Ratio 0.8 L Active Medications Acetaminophen (Tylenol) 650 mg PO Q6H PRN PRN PRN Reason: Non-cardiac pain (mod-severe) Last Admin: 09/07/18 08:22 Dose: 650 mg Hydrocodone Bitart/Acetaminophen ([place] 5mg-325mg) 1 - 2 tablet PO Q6H PRN PRN PRN Reason: MOD-SEVERE PAIN (4-10/10) Al Hydroxide/Mg Hydroxide (Mylanta Ii) 15 - 30 ml PO Q4H PRN PRN PRN Reason: INDIGESTION Last Admin: 09/06/18 19:08 Dose: 30 ml Albuterol Sulfate (Ventolin Aerosols) 2.5 mg INHALATION Q2H PRN PRN PRN Reason: dyspnea, wheezing Aspirin (Ecotrin) 81 mg PO DAILY@0800 [facility] Last Admin: 09/07/18 08:24 Dose: 81 mg Enoxaparin Sodium (Lovenox) 30 mg SC DAILY@1000 [facility] Last Admin: 09/07/18 13:16 Dose: 30 mg Famotidine (Pepcid) 20 mg PO BID [facility] Last Admin: 09/07/18 08:23 Dose: 20 mg Heparin Sodium (Beef Lung) () 50 units IV UD PRN PRN Reason: HEPARIN FLUSH Sodium Chloride () 250 mls @ 15 mls/hr IV .[id number] PRN PRN Reason: SALINE FLUSH Meropenem 500 mg/ Sodium (Chloride) 60 mls @ 100 mls/hr IV Q8 [facility] Last Admin: 09/07/18 14:36 Dose: 100 mls/hr Lactated Ringer's () 1,000 mls @ 100 mls/hr IV .Q10H [facility] Last Admin: 09/07/18 10:05 Dose: 100 mls/hr Magnesium Hydroxide (Milk Of Magnesia) 30 ml PO DAILY PRN PRN PRN Reason: Constipation Nitroglycerin (Nitrostat) 0.4 mg SUBLINGUAL Q5M PRN PRN Reason: CARDIAC/CHEST PAIN Nutritional Formula (Lactose Free) (Ensure Clear) 120 ml PO 4X/DAY [facility] Last Admin: 09/07/18 13:39 Dose: 120 ml Ondansetron HCl (Zofran) 4 mg IV Q8H PRN PRN PRN Reason: NAUSEA/VOMITING Sertraline HCl (Zoloft) 200 mg PO DAILY [facility] Last Admin: 09/07/18 08:24 Dose: 200 mg Sodium Chloride () 5 - 15 ml IV UD PRN PRN Reason: SALINE FLUSH Last Admin: 09/05/18 22:44 Dose: 10 ml Sodium Chloride () 10 - 20 ml IV UD PRN PRN Reason: PICC FLUSH Vancomycin HCl () 125 mg PO Q6 [facility] Last Admin: 09/07/18 11:57 Dose: 125 mg Code Visit Inpatient E&M: 31922 Subs Hosp L3
--- NOTE | 2018-09-07 23:31 | EKG12_ITS ---
Test Reason : AM Blood Pressure : / mmHG Vent. Rate : 062 BPM Atrial Rate : 062 BPM P-R Int : 128 ms QRS Dur : 080 ms QT Int : 444 ms P-R-T Axes : 012 -07 013 degrees QTc Int : 450 ms Normal sinus rhythm Low voltage QRS Nonspecific T wave abnormality Abnormal ECG Confirmed by PEGGY SMALLWOOD, RUBEN ([id number]), editor managing newspaper EMILY DEVINE ([id number]) on 09/11/2018 12:37:02 PM Referred By: Caterina Barber Confirmed By:RUBEN WOODS MD
[2018-09-07] MEDS: dilTIAZem CD 120 MG Capsule PO (23:51)
[2018-09-08] VITALS (14 sets, daily range): BP systolic 107–133; BP diastolic 68–76; PULSE 81–116; RESP 16–18; TEMP 36.4–37.8; O2SAT 94–96
[2018-09-08] MEDS: Acetaminophen 325 MG Tablet 650 MG PO (05:22)
--- NOTE | 2018-09-08 06:50 | PCM.PN.PUL ---
Patient Problems: Active and Suspected Problems (Last Reviewed 09/07/18 @ 10:12 by Shantel James PA-C) Hypotension (Acute) Abdominal pain (Acute) Subjective: The patient was seen and examined at the bedside this morning. Events from the last 24 hours have been reviewed. The patient currently has a low-grade fever, but remains hemodynamically stable on room air. The patient had several bowel movements overnight. Objective: The patient's most recent lab work, culture data and imaging studies have all been personally reviewed. Urine culture was positive for ESBL E. coli. C. difficile PCR was positive. Blood cultures are pending. CTA chest revealed mild to moderate aortic coarctation. No PE was identified. The lung parenchyma was grossly clear. - Physical Exam General: Alert, Cooperative, No apparent distress HEENT: Atraumatic, PERRLA, Normocephalic Oral: No Gingival or Mucosal Lesions/ Ulcerations Neck: Supple, No Nodes, Trachea Midline Lungs: Normal air movement, No rhonchi, No wheeze, No rales Cardiovascular: Regular rate, Regular Rhythm, Normal S1, Normal S2, No murmurs Abdomen: Soft, Non-Distended Extremities: No clubbing, No cyanosis, No edema Skin: - - No significant change from previous. Musculoskeletal: No Tenderness to Palpation of Joints or Extremities, No Muscle Wasting Lymphatic: No Cervical, Supraclavicular, or Inguinal Adenopathy Neurological: Cranial nerves II-XII grossly intact, Neuro grossly intact Psych/Mental Status: Normal Affect, Appropriate Vital Signs Temp Pulse Resp BP Pulse Ox 100.1 F H 99 18 119/76 94 09/08/18 05:15 09/08/18 05:15 09/08/18 05:15 09/08/18 05:15 09/08/18 05:15 Oxygen Flow Rate (L/min) 2 Oxygen Delivery Method Room Air Weight: 151 lb 0.266 oz Body Mass Index (BMI) 24.8 Intake and Output for Last 24 Hours 09/06/18 09/07/18 09/08/18 23:59 23:59 23:59 Intake Total 2675.1 / 2675.1 2137 / 2137 617 / 617 Output Total 1125 / 1125 103 / 103 200 / 200 Balance 1550.1 / 1550.1 2033 / 2033 417 / 417 Microbiology Past 72 Hours 09/07/18 13:20 C. difficile DNA Amplification - Final Stool Toxigenic C. difficile DNA 09/07/18 13:20 Stool Lactoferrin - Final Stool 09/07/18 13:20 Stool Occult Blood (KARMEN) - Final Stool 09/05/18 Unknown Urine Culture - Preliminary Urine, Random Presumptive E. coli Laboratory Tests Past 24 Hrs 09/07/18 09/07/18 08:58 08:58 WBC 13.8 H RBC 4.26 Hgb 12.5 Hct 37.6 MCV 88.3 MCH 29.3 MCHC 33.2 RDW 15.3 H RDW Differential 49.2 H Plt Count 236 MPV 10.5 Immature Gran % (Auto) 0.300 Neut % (Auto) 95.3 H Lymph % (Auto) 3.5 L [place] % (Auto) 0.7 Eos % (Auto) 0.0 Baso % (Auto) 0.2 Absolute Neuts (auto) 13.1 H Absolute Lymphs (auto) 0.48 L Total Counted Not Reportable Platelet Estimate ADEQUATE Plt Morphology Comment LARGE Hypochromasia RARE Sodium 139 Potassium 3.1 L Chloride 107 Carbon Dioxide 24.0 Anion Gap 8 BUN 23 H Creatinine 1.13 H Estim Creat Clear Calc 40.00 Est GFR (MDRD) Af Amer 61 Est GFR (MDRD) Non-Af 51 L BUN/Creatinine Ratio 20.4 H Glucose 103 Calcium 8.2 L Total Bilirubin 0.30 AST 26 ALT 13 Alkaline Phosphatase 31 L Total Protein 5.6 L Albumin 2.5 L Globulin 3.1 Albumin/Globulin Ratio 0.8 L Clinical Impression(s) from Imaging Studies Chest X-Ray 09/05/18 14:14 IMPRESSION: No acute cardiopulmonary findings Electronically Signed: Eliseo Raza DO at 14:45 EDT Tel , Service support , Chest CTA 09/05/18 15:10 IMPRESSION: No evidence for PE. Mild to moderate aortic coarctation. COPD. Atelectasis or scarring in the posterior lung bases. Electronically Signed: Jose Jacobo MD at 16:07 EDT , Service support , Abdomen CT 09/07/18 08:23 IMPRESSION: Diffuse submucosal thickening of the majority of the colon, most notably in the sigmoid colon. There is pericolonic inflammatory stranding and induration of the mesenteric and retroperitoneal fat. Findings could represent C. difficile colitis though inflammatory colitis can have a similar appearance and the sigmoid diverticulitis could also be present. Underlying sigmoid lesion cannot be excluded. Uterus is still present, the endometrium cannot be accurately evaluated with CT. No suspicious cystic mass noted in the pelvis there is dependent free fluid No suspicious solid organ abnormality Electronically Signed: Nader Hall MD at 11:41 EDT , Service support , Medical Necessity - Tobacco Use Smoking Status: Never smoker Tobacco Use: Non-smoker Assessment/Plan All Active Problems (Last Reviewed 09/07/18 @ 10:12 by Shantel James PA-C) Hypotension (Acute) Abdominal pain (Acute) Dyspnea on exertion (Acute) Abnormal stress echo (Acute) RECOMMENDATIONS: 1. Continue antimicrobial coverage for underlying cystitis and C. difficile colitis. 2. Continue to hold home antihypertensive/diuretic regimen. 3. Continue appropriate DVT prophylaxis. 4. Potassium and magnesium repletion. IMPRESSIONS: 1. Hypovolemic shock The patient presented to the emergency department with hypotension in the setting of GI losses and decreased p.o. intake. Unfortunately, in light of the aforementioned, the patient was still taking her home antihypertensives/diuretics. She did transiently require administration of vasopressor support. I do suspect that her hypotension was the consequence of intravascular volume depletion coupled with the medication effect of her antihypertensives. I do not suspect that the patient had an acute anaphylactic reaction. The patient has remained hemodynamically stable following volume resuscitation. 2. ESBL E. coli cystitis Continue meropenem accordingly. 3. C. difficile colitis Continue treatment with p.o. vancomycin. 4. Acute on chronic kidney disease Resolved. Likely prerenal in etiology, as the patient's creatinine has improved with volume expansion. Urine output is appropriate. No indication for renal replacement therapy. 5. Hypokalemia Electrolyte repletion as ordered. Recheck levels in the morning. Replete magnesium as well. 6. Hypertension/hyperlipidemia/depression/anxiety Complicates care, management, recovery and prognosis. Continue home medications as indicated. This note was generated with [employer] dictation software. It may contain incorrect words, spelling, and punctuation that were not noted in checking the note before signing. DISPOSITION: Given the patient's lack of ongoing ICU or pulmonary needs, will sign off. Please call with any additional questions. Code Visit Inpatient E&M: 06279 Subs Hosp L2
--- NOTE | 2018-09-08 06:53 | PN_ITS ---
Patient Problems: Active and Suspected Problems (Last Reviewed 09/07/18 @ 10:12 by Shantel James PA-C) Hypotension (Acute) Abdominal pain (Acute) Subjective: The patient was seen and examined at the bedside this morning. Events from the last 24 hours have been reviewed. The patient currently has a low-grade fever, but remains hemodynamically stable on room air. The patient had several bowel movements overnight. Objective: The patient's most recent lab work, culture data and imaging studies have all been personally reviewed. Urine culture was positive for ESBL E. coli. C. difficile PCR was positive. Blood cultures are pending. CTA chest revealed mild to moderate aortic coarctation. No PE was identified. The lung parenchyma was grossly clear. - Physical Exam General: Alert, Cooperative, No apparent distress HEENT: Atraumatic, PERRLA, Normocephalic Oral: No Gingival or Mucosal Lesions/ Ulcerations Neck: Supple, No Nodes, Trachea Midline Lungs: Normal air movement, No rhonchi, No wheeze, No rales Cardiovascular: Regular rate, Regular Rhythm, Normal S1, Normal S2, No murmurs Abdomen: Soft, Non-Distended Extremities: No clubbing, No cyanosis, No edema Skin: - - No significant change from previous. Musculoskeletal: No Tenderness to Palpation of Joints or Extremities, No Muscle Wasting Lymphatic: No Cervical, Supraclavicular, or Inguinal Adenopathy Neurological: Cranial nerves II-XII grossly intact, Neuro grossly intact Psych/Mental Status: Normal Affect, Appropriate Vital Signs Temp Pulse Resp BP Pulse Ox 100.1 F H 99 18 119/76 94 09/08/18 05:15 09/08/18 05:15 09/08/18 05:15 09/08/18 05:15 09/08/18 05:15 Oxygen Flow Rate (L/min) 2 Oxygen Delivery Method Room Air Weight: 151 lb 0.266 oz Body Mass Index (BMI) 24.8 Intake and Output for Last 24 Hours 09/06/18 09/07/18 09/08/18 23:59 23:59 23:59 Intake Total 2675.1 / 2675.1 2137 / 2137 617 / 617 Output Total 1125 / 1125 103 / 103 200 / 200 Balance 1550.1 / 1550.1 2033 / 2033 417 / 417 Microbiology Past 72 Hours 09/07/18 13:20 C. difficile DNA Amplification - Final Stool Toxigenic C. difficile DNA 09/07/18 13:20 Stool Lactoferrin - Final Stool 09/07/18 13:20 Stool Occult Blood (KARMEN) - Final Stool 09/05/18 Unknown Urine Culture - Preliminary Urine, Random Presumptive E. coli Laboratory Tests Past 24 Hrs 09/07/18 09/07/18 08:58 08:58 WBC 13.8 H RBC 4.26 Hgb 12.5 Hct 37.6 MCV 88.3 MCH 29.3 MCHC 33.2 RDW 15.3 H RDW Differential 49.2 H Plt Count 236 MPV 10.5 Immature Gran % (Auto) 0.300 Neut % (Auto) 95.3 H Lymph % (Auto) 3.5 L [place] % (Auto) 0.7 Eos % (Auto) 0.0 Baso % (Auto) 0.2 Absolute Neuts (auto) 13.1 H Absolute Lymphs (auto) 0.48 L Total Counted Not Reportable Platelet Estimate ADEQUATE Plt Morphology Comment LARGE Hypochromasia RARE Sodium 139 Potassium 3.1 L Chloride 107 Carbon Dioxide 24.0 Anion Gap 8 BUN 23 H Creatinine 1.13 H Estim Creat Clear Calc 40.00 Est GFR (MDRD) Af Amer 61 Est GFR (MDRD) Non-Af 51 L BUN/Creatinine Ratio 20.4 H Glucose 103 Calcium 8.2 L Total Bilirubin 0.30 AST 26 ALT 13 Alkaline Phosphatase 31 L Total Protein 5.6 L Albumin 2.5 L Globulin 3.1 Albumin/Globulin Ratio 0.8 L Clinical Impression(s) from Imaging Studies Chest X-Ray 09/05/18 14:14 IMPRESSION: No acute cardiopulmonary findings Electronically Signed: Eliseo Raza DO at 14:45 EDT Tel , Service support , Chest CTA 09/05/18 15:10 IMPRESSION: No evidence for PE. Mild to moderate aortic coarctation. COPD. Atelectasis or scarring in the posterior lung bases. Electronically Signed: Jose Jacobo MD at 16:07 EDT , Service support , Abdomen CT 09/07/18 08:23 IMPRESSION: Diffuse submucosal thickening of the majority of the colon, most notably in the sigmoid colon. There is pericolonic inflammatory stranding and induration of the mesenteric and retroperitoneal fat. Findings could represent C. difficile colitis though inflammatory colitis can have a similar appearance and the sigmoid diverticulitis could also be present. Underlying sigmoid lesion cannot be excluded. Uterus is still present, the endometrium cannot be accurately evaluated with CT. No suspicious cystic mass noted in the pelvis there is dependent free fluid No suspicious solid organ abnormality Electronically Signed: Nader Hall MD at 11:41 EDT , Service support , Medical Necessity - Tobacco Use Smoking Status: Never smoker Tobacco Use: Non-smoker Assessment/Plan All Active Problems (Last Reviewed 09/07/18 @ 10:12 by Shantel James PA-C) Hypotension (Acute) Abdominal pain (Acute) Dyspnea on exertion (Acute) Abnormal stress echo (Acute) RECOMMENDATIONS: 1. Continue antimicrobial coverage for underlying cystitis and C. difficile colitis. 2. Continue to hold home antihypertensive/diuretic regimen. 3. Continue appropriate DVT prophylaxis. 4. Potassium and magnesium repletion. IMPRESSIONS: 1. Hypovolemic shock The patient presented to the emergency department with hypotension in the setting of GI losses and decreased p.o. intake. Unfortunately, in light of the aforementioned, the patient was still taking her home antihypertensives/diuretics. She did transiently require administration of vasopressor support. I do suspect that her hypotension was the consequence of intravascular volume depletion coupled with the medication effect of her antihypertensives. I do not suspect that the patient had an acute anaphylactic reaction. The patient has remained hemodynamically stable following volume resuscitation. 2. ESBL E. coli cystitis Continue meropenem accordingly. 3. C. difficile colitis Continue treatment with p.o. vancomycin. 4. Acute on chronic kidney disease Resolved. Likely prerenal in etiology, as the patient's creatinine has improved with volume expansion. Urine output is appropriate. No indication for renal replacement therapy. 5. Hypokalemia Electrolyte repletion as ordered. Recheck levels in the morning. Replete magnesium as well. 6. Hypertension/hyperlipidemia/depression/anxiety Complicates care, management, recovery and prognosis. Continue home medications as indicated. This note was generated with [employer] dictation software. It may contain incorrect words, spelling, and punctuation that were not noted in checking the note before signing. DISPOSITION: Given the patient's lack of ongoing ICU or pulmonary needs, will sign off. Please call with any additional questions. Code Visit Inpatient E&M: 08800 Subs Hosp L2
[2018-09-08 07:56] LABS: Absolute Lymphocyte Count 0.57 X10^3/ul (0.83-4.51); Absolute Neutrophil Count 9.4 X10^3/uL (2.0-7.7); Basophil# 0.01 X10^3/uL; Basophil% 0.1 % (0-1); Eosinophil# 0.08 X10^3/uL; Eosinophils% 0.8 % (0-5); Hematocrit 35.9 % (37-47); Lymphocyte # 0.57 X10^3/ul (4.0); Lymphocyte % 5.6 % (19-41); Mean Corp Hgb Conc 33.4 g/gl (32-36); Mean Corpuscular Hgb 29.5 pg (27.0-32.0); Mean Corpuscular Volume 88.2 fL (81-99); Mean Platelet Vol. 10.8 fl (6.2-12.0); Monocyte# 0.05 X10^3/uL; Monocyte% 0.5 % (0-10); Neutrophil # 9.42 X10^3/uL (2.7-7.7); Neutrophil % 92.9 % (47-70); Platelet Count 188 K/mm3 (150-450); RBC Distribution Width CV 15.4 % (11.6-14.6); RBC Distribution Width SD 49.4 fl (35.1-43.9); Red Blood Count 4.07 M/mm3 (4.2-5.4); White Blood Count 10.1 K/mm3 (4.4-11.0)
[2018-09-08 07:57] LABS: Differential Indicated SCAN CRITERIA MET; POSITIVE COUNT NO; POSITIVE DIFFERENTIAL YES; POSITIVE MORPHOLOGY NO
[2018-09-08 08:09] LABS: Anion Gap 7 (5-15); BUN 17 mg/dL (7-18); BUN/Creat Ratio 21.9 RATIO (10-20); Calcium,Total 8.1 mg/dL (8.5-10.1); Chloride 109 mmol/L (98-107); Creatinine, Serum 0.78 mg/dL (0.55-1.02); EST Glomerular Filtration Rate 78 mL/min (>60); Est Glom Filt Rate - Afr Amer 95 mL/min (>60); Glucose 87 mg/dL (74-106); Magnesium 1.6 mg/dL (1.6-2.6); Potassium 2.9 mmol/L (3.5-5.1); Sodium Level 140 mmol/L (136-145)
[2018-09-08] MEDS: Aspirin E.C. 81 MG Tablet PO (09:50)
[2018-09-08] MEDS: Ensure Clear 120 ML Liquid PO ×3 (09:50→16:58)
[2018-09-08] MEDS: Sertraline 100 MG Tablet 200 MG PO (09:50)
[2018-09-08] MEDS: Famotidine 20 MG Tablet PO ×2 (09:50→21:07)
[2018-09-08] MEDS: Enoxaparin 30 MG/0.3 ML Syringe SC (09:51)
[2018-09-08] MEDS: Lactated Ringers 1,000 ML 100 ML IV ×2 (09:52→21:07)
--- NOTE | 2018-09-08 11:14 | PN_ITS ---
Patient Problems: Active and Suspected Problems (Last Reviewed 09/07/18 @ 10:12 by Shantel James PA-C) Hypotension (Acute) Abdominal pain (Acute) Subjective: Patient is still gets low-grade fever, T-max 101 Fahrenheit. Yesterday, Cardizem was held secondary to hypotension from infection sepsis. C. difficile colitis. On p.o. vancomycin. Subjective improvement with regards to abdominal pain and nausea. Has hypokalemia and is being replaced. Patient gets intermittent sinus tachycardia, heart rate in 120s. Started back on Cardizem CD and metoprolol if needed. Discussed with Dr. Goodman and Dr. Pepper. Vitals/I&O's: Vital Signs Temp Pulse Resp BP Pulse Ox 97.7 F L 96 16 107/71 94 09/08/18 09:50 09/08/18 09:50 09/08/18 09:50 09/08/18 09:50 09/08/18 09:50 Oxygen Flow Rate (L/min) 2 Oxygen Delivery Method Room Air Weight: 151 lb 0.266 oz Body Mass Index (BMI) 24.8 Intake and Output for Last 24 Hours 09/06/18 09/07/18 09/08/18 23:59 23:59 23:59 Intake Total 2675.1 / 2675.1 2137 / 2137 617 / 617 Output Total 1125 / 1125 103 / 103 200 / 200 Balance 1550.1 / 1550.1 2033 / 2033 417 / 417 General: Alert, Oriented x3, Cooperative HEENT: Atraumatic, PERRLA, EOMI, Normocephalic Neck: Supple, No JVD, Negative Carotid Bruits Lungs: Clear to auscultation, No rhonchi, No wheeze, No rales Cardiovascular: Regular rate, Regular Rhythm, Normal S1, Normal S2, No murmurs Abdomen: Bowel Sounds Present, Soft, Non-Distended, Tender - Mild deep tenderness in lower quadrants. Extremities: No edema, Capillary Refill Less than 3 Seconds Skin: No rashes, No breakdown Musculoskeletal: No Tenderness to Palpation of Joints or Extremities, Arthritic Changes Lymphatic: No Cervical, Supraclavicular, or Inguinal Adenopathy Neurological: Cranial nerves II-XII grossly intact, Deep Tendon Reflexes 2+/4 and Symmetrical, Neuro grossly intact Psych/Mental Status: Normal Affect, Appropriate Microbiology Past 72 Hours 09/05/18 Unknown Urine, Random Urine Culture - Final Presumptive E. coli 09/07/18 13:20 Stool C. difficile DNA Amplification - Final Toxigenic C. difficile DNA 09/07/18 13:20 Stool Stool Lactoferrin - Final 09/07/18 13:20 Stool Stool Occult Blood (KARMEN) - Final Laboratory Results 09/08/18 07:05: WBC 10.1, RBC 4.07 L, Hgb 12.0, Hct 35.9 L, MCV 88.2, MCH 29.5, MCHC 33.4, RDW 15.4 H, RDW Differential 49.4 H, Plt Count 188, MPV 10.8, Immature Gran % (Auto) 0.100, Neut % (Auto) 92.9 H, Lymph % (Auto) 5.6 L, [place] % (Auto) 0.5, Eos % (Auto) 0.8, Baso % (Auto) 0.1, Absolute Neuts (auto) 9.4 H, Absolute Lymphs (auto) 0.57 L, Total Counted Not Reportable, Differential Comment COMMENT 09/08/18 07:05: Sodium 140, Potassium 2.9 L, Chloride 109 H, Carbon Dioxide 24.0, Anion Gap 7, BUN 17, Creatinine 0.78, Estim Creat Clear Calc 45.20, Est GFR (MDRD) Af Amer 95, Est GFR (MDRD) Non-Af 78, BUN/Creatinine Ratio 21.9 H, Glucose 87, Calcium 8.1 L, Magnesium 1.6 Current Medications Acetaminophen (Tylenol) 650 mg PO Q6H PRN PRN PRN Reason: Non-cardiac pain (mod-severe) Last Admin: 09/08/18 05:22 Dose: 650 mg Hydrocodone Bitart/Acetaminophen ([place] 5mg-325mg) 1 - 2 tablet PO Q6H PRN PRN PRN Reason: MOD-SEVERE PAIN (4-10/10) Al Hydroxide/Mg Hydroxide (Mylanta Ii) 15 - 30 ml PO Q4H PRN PRN PRN Reason: INDIGESTION Last Admin: 09/06/18 19:08 Dose: 30 ml Albuterol Sulfate (Ventolin Aerosols) 2.5 mg INHALATION Q2H PRN PRN PRN Reason: dyspnea, wheezing Aspirin (Ecotrin) 81 mg PO DAILY@0800 [facility] Last Admin: 09/08/18 09:50 Dose: 81 mg Diltiazem HCl (Cardizem Cd) 120 mg PO X1 ONE Stop: 09/08/18 11:16 Diltiazem HCl (Cardizem Cd) 120 mg PO DAILY [facility] Enoxaparin Sodium (Lovenox) 30 mg SC DAILY@1000 [facility] Last Admin: 09/08/18 09:51 Dose: 30 mg Famotidine (Pepcid) 20 mg PO BID [facility] Last Admin: 09/08/18 09:50 Dose: 20 mg Heparin Sodium (Beef Lung) () 50 units IV UD PRN PRN Reason: HEPARIN FLUSH Sodium Chloride () 250 mls @ 15 mls/hr IV .[id number] PRN PRN Reason: SALINE FLUSH Meropenem 500 mg/ Sodium (Chloride) 60 mls @ 100 mls/hr IV Q8 [facility] Last Admin: 09/08/18 05:17 Dose: 100 mls/hr Lactated Ringer's () 1,000 mls @ 100 mls/hr IV .Q10H [facility] Last Admin: 09/08/18 09:52 Dose: 100 mls/hr Magnesium Hydroxide (Milk Of Magnesia) 30 ml PO DAILY PRN PRN PRN Reason: Constipation Metoprolol Tartrate (Lopressor (Beta Anika)) 25 mg PO BID [facility] Nitroglycerin (Nitrostat) 0.4 mg SUBLINGUAL Q5M PRN PRN Reason: CARDIAC/CHEST PAIN Nutritional Formula (Lactose Free) (Ensure Clear) 120 ml PO 4X/DAY [facility] Last Admin: 09/08/18 09:50 Dose: 120 ml Ondansetron HCl (Zofran) 4 mg IV Q8H PRN PRN PRN Reason: NAUSEA/VOMITING Potassium Chloride (K-Dur) 40 meq PO TID [facility] Stop: 09/08/18 22:01 Sertraline HCl (Zoloft) 200 mg PO DAILY [facility] Last Admin: 09/08/18 09:50 Dose: 200 mg Sodium Chloride () 5 - 15 ml IV UD PRN PRN Reason: SALINE FLUSH Last Admin: 09/05/18 22:44 Dose: 10 ml Sodium Chloride () 10 - 20 ml IV UD PRN PRN Reason: PICC FLUSH Vancomycin HCl () 125 mg PO Q6 [facility] Last Admin: 09/08/18 05:17 Dose: 125 mg Medical Necessity - Tobacco Use Smoking Status: Never smoker Tobacco Use: Non-smoker Assessment/Plan All Active Problems (Last Reviewed 09/07/18 @ 10:12 by Shantel James PA-C) Hypotension (Acute) Abdominal pain (Acute) Dyspnea on exertion (Acute) Abnormal stress echo (Acute) This is a 68-year-old female with history of hypertension, dyslipidemia and SVT came to ER with dizziness, lightheadedness, generalized hives, hypotension consistent with anaphylactic shock which required transient IV vasopressin The patient had sudden onset with oropharyngeal and tongue swelling with dizziness, lightheadedness. This happened after almost 20 days of Cipro and Flagyl given for when she did not get better after 10 days course. On the last day of Cipro and Flagyl, patient had nausea, emesis and loose bowel movement along with generalized hives and swelling of lip for which she was started on prednisone and discontinuation of the antibiotics. Patient was admitted in ICU with hypotension, BP 49/32 which increased to 63/47; that necessitated start of vasopressor, vasopressin. The patient was initially admitted in ICU and then transferred to PCU on 09/06. 1. Hypovolemic shock, most probably secondary to hypovolemia from fluid loss and multiple antihypertensive medications: At home, she was on quinapril/HCTZ 20-12.5 mg, Cardizem CD 120 mg. Antihypertensive medications are on hold. Continue Pepcid and Benadryl but discontinue Solu-Medrol in view of ongoing infection. Blood pressure is stable. No tachypnea or hypoxia. Although patie nt had allergic reaction with generalized hives on the upper extremity and trunk along with swelling of lips and buccal mucosa but it was not to the extent of anaphylactic shock. Anaphylactic shock ruled out 2. ESBL E. coli cystitis : UA is positive of nitrite, bacteria 3+, WBC RBCs 0. Urine culture shows ESBL E. coli. Rocephin is discontinued and started on meropenem. 3. C. difficile colitis: Stool for lactoferrin is positive, occult blood negative. C. difficile is positive. CT abdomen with oral contrast was done and images reviewed. Diffuse submucosal thickening of majority of, Most notably in sigmoid colon. Pericolonic inflammatory stranding and induration of mesenteric and retroperitoneal fat. Patient is on vancomycin 125 mg p.o. every 6 hourly. Discussed with the surgeon, Dr. Goodman and advised to continue vancomycin and when she gets better she can follow-up in office after 1 week of discharge to plan for definitive sigmoid colectomy and possible colostomy. He will continue to follow-up. (3) Hypertension: Blood pressure is normotensive. (4) Hyperlipidemia: Holding TriCor. (5) Chronic Kidney Disease Stage III: Admission BUN/Cr 20/1.29, baseline renal function 1.3. Repeat labs loosening BUN/creatinine 18/1.04 back on the baseline. (6) Hx SVT: No market findings on telemetry or EKG. Serial troponin enzymes are negative. On telemetry, normal sinus rhythm. (7) Anxiety and Depression: continue home regimen sertraline. (8) Recent Diverticulitis: Treated w/ 2 rounds abx therapy, as noted reaction to medication which was stopped pior to arrival and initial dose steroids late this past Tuesday. No abdominal pain, nausea/vomiting/abdominal tenderness. Tolerating diet now, stools improved. No clinical GI bleed. (9) DVT prophylaxis SCD, Lovenox. Discontinue if platelet count drops less than 50,000 or hemoglobin less than 8 g% Microbiology Past 72 Hours 09/05/18 14:38 Blood Culture (Wb) - Anticubital Left Blood Culture - Preliminary No growth in 48 hours. 09/05/18 14:30 Blood Culture (Wb) - Anticubital Right Blood Culture - Preliminary No growth in 48 hours. 09/05/18 Unknown Urine, Random Urine Culture - Final Presumptive E. coli 09/07/18 13:20 Stool C. difficile DNA Amplification - Final Toxigenic C. difficile DNA 09/07/18 13:20 Stool Stool Lactoferrin - Final 09/07/18 13:20 Stool Stool Occult Blood (KARMEN) - Final Laboratory Results 09/08/18 07:05: WBC 10.1, RBC 4.07 L, Hgb 12.0, Hct 35.9 L, MCV 88.2, MCH 29.5, MCHC 33.4, RDW 15.4 H, RDW Differential 49.4 H, Plt Count 188, MPV 10.8, Immature Gran % (Auto) 0.100, Neut % (Auto) 92.9 H, Lymph % (Auto) 5.6 L, [place] % (Auto) 0.5, Eos % (Auto) 0.8, Baso % (Auto) 0.1, Absolute Neuts (auto) 9.4 H, Absolute Lymphs (auto) 0.57 L, Total Counted Not Reportable, Differential Comment COMMENT 09/08/18 07:05: Sodium 140, Potassium 2.9 L, Chloride 109 H, Carbon Dioxide 24.0, Anion Gap 7, BUN 17, Creatinine 0.78, Estim Creat Clear Calc 45.20, Est GFR (MDRD) Af Amer 95, Est GFR (MDRD) Non-Af 78, BUN/Creatinine Ratio 21.9 H, Glucose 87, Calcium 8.1 L, Magnesium 1.6 Active Medications Acetaminophen (Tylenol) 650 mg PO Q6H PRN PRN PRN Reason: Non-cardiac pain (mod-severe) Last Admin: 09/08/18 05:22 Dose: 650 mg Hydrocodone Bitart/Acetaminophen ([place] 5mg-325mg) 1 - 2 tablet PO Q6H PRN PRN PRN Reason: MOD-SEVERE PAIN (4-10/10) Al Hydroxide/Mg Hydroxide (Mylanta Ii) 15 - 30 ml PO Q4H PRN PRN PRN Reason: INDIGESTION Last Admin: 09/06/18 19:08 Dose: 30 ml Albuterol Sulfate (Ventolin Aerosols) 2.5 mg INHALATION Q2H PRN PRN PRN Reason: dyspnea, wheezing Aspirin (Ecotrin) 81 mg PO DAILY@0800 [facility] Last Admin: 09/08/18 09:50 Dose: 81 mg Diltiazem HCl (Cardizem Cd) 120 mg PO DAILY [facility] Enoxaparin Sodium (Lovenox) 40 mg SC DAILY@1000 [facility] Last Admin: 09/08/18 09:51 Dose: 30 mg Famotidine (Pepcid) 20 mg PO BID [facility] Last Admin: 09/08/18 09:50 Dose: 20 mg Heparin Sodium (Beef Lung) () 50 units IV UD PRN PRN Reason: HEPARIN FLUSH Sodium Chloride () 250 mls @ 15 mls/hr IV .[id number] PRN PRN Reason: SALINE FLUSH Meropenem 500 mg/ Sodium (Chloride) 60 mls @ 100 mls/hr IV Q8 [facility] Last Admin: 09/08/18 13:03 Dose: 100 mls/hr Lactated Ringer's () 1,000 mls @ 100 mls/hr IV .Q10H [facility] Last Admin: 09/08/18 09:52 Dose: 100 mls/hr Magnesium Hydroxide (Milk Of Magnesia) 30 ml PO DAILY PRN PRN PRN Reason: Constipation Metoprolol Tartrate (Lopressor (Beta Anika)) 25 mg PO BID [facility] Last Admin: 09/08/18 11:46 Dose: 25 mg Nitroglycerin (Nitrostat) 0.4 mg SUBLINGUAL Q5M PRN PRN Reason: CARDIAC/CHEST PAIN Nutritional Formula (Lactose Free) (Ensure Clear) 120 ml PO 4X/DAY [facility] Last Admin: 09/08/18 13:03 Dose: 120 ml Ondansetron HCl (Zofran) 4 mg IV Q8H PRN PRN PRN Reason: NAUSEA/VOMITING Potassium Chloride (K-Dur) [facility] Stop: 09/09/18 08:01 Last Admin: 09/08/18 11:46 Dose: 40 meq Sertraline HCl (Zoloft) 200 mg PO DAILY [facility] Last Admin: 09/08/18 09:50 Dose: 200 mg Sodium Chloride () 5 - 15 ml IV UD PRN PRN Reason: SALINE FLUSH Last Admin: 09/05/18 22:44 Dose: 10 ml Sodium Chloride () 10 - 20 ml IV UD PRN PRN Reason: PICC FLUSH Vancomycin HCl () 125 mg PO Q6 [facility] Last Admin: 09/08/18 11:46 Dose: 125 mg Code Visit Inpatient E&M: [id number] [place] [id number]
[2018-09-08] MEDS: Metoprolol Tartrate 25 MG Tablet PO ×2 (11:46→21:11)
[2018-09-08] MEDS: dilTIAZem CD 120 MG Capsule PO (11:46)
[2018-09-08] MEDS: Potassium Chloride 10mEq/100mL 10 MEQ/100 ML IV.SOLN. 100 MEQ IV BOLUS ×2 (13:36→14:37)
--- NOTE | 2018-09-08 14:18 | PN.SURG_ITS ---
Patient Problems: Active and Suspected Problems (Last Reviewed 09/07/18 @ 10:12 by Shantel James PA-C) Hypotension (Acute) Abdominal pain (Acute) Subjective: Pain is improved. Objective: Abdomen is soft. - Physical Exam Vital Signs Temp Pulse Resp BP Pulse Ox 97.7 F L 116 H 16 109/76 94 09/08/18 09:50 09/08/18 11:46 09/08/18 09:50 09/08/18 11:45 09/08/18 09:50 Oxygen Flow Rate (L/min) 2 Oxygen Delivery Method Room Air Weight: 151 lb 0.266 oz Body Mass Index (BMI) 24.8 Intake and Output for Last 24 Hours 09/06/18 09/07/18 09/08/18 23:59 23:59 23:59 Intake Total 2675.1 / 2675.1 2137 / 2137 1379 / 1379 Output Total 1125 / 1125 103 / 103 400 / 400 Balance 1550.1 / 1550.1 2034 / 2034 979 / 979 Microbiology Past 72 Hours 09/05/18 14:38 Blood Culture - Preliminary Blood Culture (Wb) - Anticubital Left No growth in 48 hours. 09/05/18 14:30 Blood Culture - Preliminary Blood Culture (Wb) - Anticubital Right No growth in 48 hours. 09/05/18 Unknown Urine Culture - Final Urine, Random Presumptive E. coli 09/07/18 13:20 C. difficile DNA Amplification - Final Stool Toxigenic C. difficile DNA 09/07/18 13:20 Stool Lactoferrin - Final Stool 09/07/18 13:20 Stool Occult Blood (KARMEN) - Final Stool Laboratory Tests Past 24 Hrs 09/08/18 09/08/18 07:05 07:05 WBC 10.1 RBC 4.07 L Hgb 12.0 Hct 35.9 L MCV 88.2 MCH 29.5 MCHC 33.4 RDW 15.4 H RDW Differential 49.4 H Plt Count 188 MPV 10.8 Immature Gran % (Auto) 0.100 Neut % (Auto) 92.9 H Lymph % (Auto) 5.6 L [place] % (Auto) 0.5 Eos % (Auto) 0.8 Baso % (Auto) 0.1 Absolute Neuts (auto) 9.4 H Absolute Lymphs (auto) 0.57 L Total Counted Not Reportable Differential Comment COMMENT Sodium 140 Potassium 2.9 L Chloride 109 H Carbon Dioxide 24.0 Anion Gap 7 BUN 17 Creatinine 0.78 Estim Creat Clear Calc 45.20 Est GFR (MDRD) Af Amer 95 Est GFR (MDRD) Non-Af 78 BUN/Creatinine Ratio 21.9 H Glucose 87 Calcium 8.1 L Magnesium 1.6 Medical Necessity - Tobacco Use Smoking Status: Never smoker Tobacco Use: Non-smoker Assessment/Plan All Active Problems (Last Reviewed 09/07/18 @ 10:12 by Shantel James PA-C) Hypotension (Acute) Abdominal pain (Acute) Dyspnea on exertion (Acute) Abnormal stress echo (Acute) Patient noted to have C. difficile colitis improving on current treatment. I wo uld suggest that once she is done with this treatment and is discharged home I should see her back since she has obviously failed medical management and we will get her scheduled for an elective open sigmoid colectomy
[2018-09-08] MEDS: 0.9% NaCl Peripheral Flush Adult/Peds IV (21:12)
[2018-09-09] VITALS (14 sets, daily range): BP systolic 100–119; BP diastolic 66–75; PULSE 69–90; RESP 16–18; TEMP 36.9–37.6; O2SAT 92–96
[2018-09-09] MEDS: Lactated Ringers 1,000 ML 100 ML IV ×2 (06:14→18:16)
--- NOTE | 2018-09-09 07:55 | PCM.PN.SRG ---
Patient Problems: Active and Suspected Problems (Last Reviewed 09/07/18 @ 10:12 by Shantel James PA-C) Hypotension (Acute) Abdominal pain (Acute) Subjective: Patient states she is having diarrhea about every 2 hours and also complains of abdominal pain which can range up to an 8 when it flares up, tolerating clears - Physical Exam General: Alert, Oriented x3, Cooperative, No apparent distress Cardiovascular: Regular rate Abdomen: Soft, Non-Distended, Tender - Left lower quadrant> right lower quadrant, no peritoneal signs Extremities: No clubbing, No cyanosis, No edema Vital Signs Temp Pulse Resp BP Pulse Ox 99.6 F H 69 16 119/75 92 09/09/18 03:00 09/09/18 06:48 09/09/18 03:00 09/09/18 03:00 09/09/18 03:12 Oxygen Flow Rate (L/min) 2 Oxygen Delivery Method Room Air Weight: 153 lb 3.54 oz Body Mass Index (BMI) 24.8 Intake and Output for Last 24 Hours 09/07/18 09/08/18 09/09/18 23:59 23:59 23:59 Intake Total 2137 / 2137 3400 / 3400 636 / 636 Output Total 103 / 103 400 / 400 Balance 2033 / 2034 3000 / 3000 636 / 636 Microbiology Past 72 Hours 09/05/18 14:38 Blood Culture - Preliminary Blood Culture (Wb) - Anticubital Left No growth in 48 hours. 09/05/18 14:30 Blood Culture - Preliminary Blood Culture (Wb) - Anticubital Right No growth in 48 hours. 09/05/18 Unknown Urine Culture - Final Urine, Random Presumptive E. coli 09/07/18 13:20 C. difficile DNA Amplification - Final Stool Toxigenic C. difficile DNA 09/07/18 13:20 Stool Lactoferrin - Final Stool 09/07/18 13:20 Stool Occult Blood (KARMEN) - Final Stool Laboratory Tests Past 24 Hrs 09/08/18 09/08/18 07:05 07:05 WBC 10.1 RBC 4.07 L Hgb 12.0 Hct 35.9 L MCV 88.2 MCH 29.5 MCHC 33.4 RDW 15.4 H RDW Differential 49.4 H Plt Count 188 MPV 10.8 Immature Gran % (Auto) 0.100 Neut % (Auto) 92.9 H Lymph % (Auto) 5.6 L [place] % (Auto) 0.5 Eos % (Auto) 0.8 Baso % (Auto) 0.1 Absolute Neuts (auto) 9.4 H Absolute Lymphs (auto) 0.57 L Total Counted Not Reportable Differential Comment COMMENT Sodium 140 Potassium 2.9 L Chloride 109 H Carbon Dioxide 24.0 Anion Gap 7 BUN 17 Creatinine 0.78 Estim Creat Clear Calc 45.20 Est GFR (MDRD) Af Amer 95 Est GFR (MDRD) Non-Af 78 BUN/Creatinine Ratio 21.9 H Glucose 87 Calcium 8.1 L Magnesium 1.6 Medical Necessity - Tobacco Use Smoking Status: Never smoker Tobacco Use: Non-smoker Assessment/Plan All Active Problems (Last Reviewed 09/07/18 @ 10:12 by Shantel James PA-C) Hypotension (Acute) Abdominal pain (Acute) Dyspnea on exertion (Acute) Abnormal stress echo (Acute) 68-year-old female with C. difficile colitis, recent sigmoid diverticulitis Would keep patient on clears until pain/diarrhea improve. Continue Vanco meropenem After discharge patient will follow up with Dr. Goodman to discuss sigmoidectomy. Annalisa Jackson M.D. Pager: [phone] [facility] [address] [place] [address], [facility], [address] [place] [address] Office: [phone] Code Visit Inpatient E&M: 16037 Subs Hosp L1
--- NOTE | 2018-09-09 07:58 | PN.SURG_ITS ---
Patient Problems: Active and Suspected Problems (Last Reviewed 09/07/18 @ 10:12 by Shantel James PA-C) Hypotension (Acute) Abdominal pain (Acute) Subjective: Patient states she is having diarrhea about every 2 hours and also complains of abdominal pain which can range up to an 8 when it flares up, tolerating clears - Physical Exam General: Alert, Oriented x3, Cooperative, No apparent distress Cardiovascular: Regular rate Abdomen: Soft, Non-Distended, Tender - Left lower quadrant> right lower quadrant, no peritoneal signs Extremities: No clubbing, No cyanosis, No edema Vital Signs Temp Pulse Resp BP Pulse Ox 99.6 F H 69 16 119/75 92 09/09/18 03:00 09/09/18 06:48 09/09/18 03:00 09/09/18 03:00 09/09/18 03:12 Oxygen Flow Rate (L/min) 2 Oxygen Delivery Method Room Air Weight: 153 lb 3.54 oz Body Mass Index (BMI) 24.8 Intake and Output for Last 24 Hours 09/07/18 09/08/18 09/09/18 23:59 23:59 23:59 Intake Total 2137 / 2137 3400 / 3400 636 / 636 Output Total 103 / 103 400 / 400 Balance 2033 / 2034 3000 / 3000 636 / 636 Microbiology Past 72 Hours 09/05/18 14:38 Blood Culture - Preliminary Blood Culture (Wb) - Anticubital Left No growth in 48 hours. 09/05/18 14:30 Blood Culture - Preliminary Blood Culture (Wb) - Anticubital Right No growth in 48 hours. 09/05/18 Unknown Urine Culture - Final Urine, Random Presumptive E. coli 09/07/18 13:20 C. difficile DNA Amplification - Final Stool Toxigenic C. difficile DNA 09/07/18 13:20 Stool Lactoferrin - Final Stool 09/07/18 13:20 Stool Occult Blood (KARMEN) - Final Stool Laboratory Tests Past 24 Hrs 09/08/18 09/08/18 07:05 07:05 WBC 10.1 RBC 4.07 L Hgb 12.0 Hct 35.9 L MCV 88.2 MCH 29.5 MCHC 33.4 RDW 15.4 H RDW Differential 49.4 H Plt Count 188 MPV 10.8 Immature Gran % (Auto) 0.100 Neut % (Auto) 92.9 H Lymph % (Auto) 5.6 L [place] % (Auto) 0.5 Eos % (Auto) 0.8 Baso % (Auto) 0.1 Absolute Neuts (auto) 9.4 H Absolute Lymphs (auto) 0.57 L Total Counted Not Reportable Differential Comment COMMENT Sodium 140 Potassium 2.9 L Chloride 109 H Carbon Dioxide 24.0 Anion Gap 7 BUN 17 Creatinine 0.78 Estim Creat Clear Calc 45.20 Est GFR (MDRD) Af Amer 95 Est GFR (MDRD) Non-Af 78 BUN/Creatinine Ratio 21.9 H Glucose 87 Calcium 8.1 L Magnesium 1.6 Medical Necessity - Tobacco Use Smoking Status: Never smoker Tobacco Use: Non-smoker Assessment/Plan All Active Problems (Last Reviewed 09/07/18 @ 10:12 by Shantel James PA-C) Hypotension (Acute) Abdominal pain (Acute) Dyspnea on exertion (Acute) Abnormal stress echo (Acute) 68-year-old female with C. difficile colitis, recent sigmoid diverticulitis Would keep patient on clears until pain/diarrhea improve. Continue Vanco meropenem After discharge patient will follow up with Dr. Goodman to discuss sigmoidectomy. Annalisa Jackson M.D. Pager: [phone] [facility] [address] [place] [address], [facility], [address] [place] [address] Office: [phone] Code Visit Inpatient E&M: [id number] Subs Hosp L1
[2018-09-09] MEDS: Potassium Chloride 10mEq/100mL 10 MEQ/100 ML IV.SOLN. 100 MEQ IV BOLUS (08:18)
[2018-09-09] MEDS: Sertraline 100 MG Tablet 200 MG PO (08:25)
[2018-09-09] MEDS: Aspirin E.C. 81 MG Tablet PO (08:26)
[2018-09-09] MEDS: Metoprolol Tartrate 25 MG Tablet PO ×2 (08:26→23:05)
[2018-09-09] MEDS: Ensure Clear 120 ML Liquid PO ×3 (08:26→18:15)
[2018-09-09] MEDS: dilTIAZem CD 120 MG Capsule PO (08:26)
[2018-09-09] MEDS: Famotidine 20 MG Tablet PO ×2 (08:26→23:05)
[2018-09-09] MEDS: Enoxaparin 40 MG/0.4 ML Syringe SC (08:40)
[2018-09-09 10:59] LABS: Anion Gap 5 (5-15); BUN 12 mg/dL (7-18); BUN/Creat Ratio 17.9 RATIO (10-20); Chloride 112 mmol/L (98-107); Creatinine, Serum 0.67 mg/dL (0.55-1.02); EST Glomerular Filtration Rate 92 mL/min (>60); Est Glom Filt Rate - Afr Amer 111 mL/min (>60); Glucose 82 mg/dL (74-106); Potassium 4.2 mmol/L (3.5-5.1); Sodium Level 139 mmol/L (136-145)
--- NOTE | 2018-09-09 12:11 | PCM.PN.HOSP ---
Patient Problems: Active and Suspected Problems (Last Reviewed 09/07/18 @ 10:12 by Shantel James PA-C) Hypotension (Acute) Abdominal pain (Acute) Subjective: Patient seen and examined. She does still complain of abdominal pain and states his been having frequent diarrheal episodes which is due to C. difficile infection. She denies any fever chills, nausea vomiting no cough. Review of systems otherwise negative. Labs and vitals reviewed. Vitals/I&O's: Vital Signs Temp Pulse Resp BP Pulse Ox 98.5 F 77 16 105/66 93 09/09/18 08:24 09/09/18 10:59 09/09/18 08:24 09/09/18 08:26 09/09/18 08:24 Oxygen Flow Rate (L/min) 2 Oxygen Delivery Method Room Air Weight: 153 lb 3.54 oz Body Mass Index (BMI) 24.8 Intake and Output for Last 24 Hours 09/07/18 09/08/18 09/09/18 23:59 23:59 23:59 Intake Total 2137 / 2137 3400 / 3400 636 / 636 Output Total 103 / 103 400 / 400 Balance 2033 / 2033 3000 / 3000 636 / 636 General: Alert, Oriented x3, Cooperative HEENT: Atraumatic, PERRLA, EOMI, Normocephalic Oral: Dry Mucosa Neck: Supple, No JVD, Negative Carotid Bruits Lungs: Clear to auscultation, Normal air movement, No rhonchi, No wheeze, No rales Cardiovascular: Regular rate, Regular Rhythm, Normal S1, Normal S2, No murmurs Abdomen: Bowel Sounds Present, Soft, Non-Distended, No Hepato-splenomegaly, - - mild generalised tenderness Extremities: No clubbing, No cyanosis, No edema, Capillary Refill Less than 3 Seconds Skin: No rashes, No breakdown Musculoskeletal: No Tenderness to Palpation of Joints or Extremities Lymphatic: No Cervical, Supraclavicular, or Inguinal Adenopathy Neurological: Cranial nerves II-XII grossly intact, Neuro grossly intact, Motor Exam 5/5 strength throughout Psych/Mental Status: Normal Affect, Appropriate, Alert and oriented to time, place, person, mood and affect Microbiology Past 72 Hours 09/05/18 14:38 Blood Culture (Wb) - Anticubital Left Blood Culture - Preliminary No growth in 48 hours. 09/05/18 14:30 Blood Culture (Wb) - Anticubital Right Blood Culture - Preliminary No growth in 48 hours. 09/05/18 Unknown Urine, Random Urine Culture - Final Presumptive E. coli 09/07/18 13:20 Stool C. difficile DNA Amplification - Final Toxigenic C. difficile DNA 09/07/18 13:20 Stool Stool Lactoferrin - Final 09/07/18 13:20 Stool Stool Occult Blood (KARMEN) - Final Laboratory Results 09/09/18 10:21: Sodium 139, Potassium 4.2, Chloride 112 H, Carbon Dioxide 22.0, Anion Gap 5, BUN 12, Creatinine 0.67, Estim Creat Clear Calc 45.20, Est GFR (MDRD) Af Amer 111, Est GFR (MDRD) Non-Af 92, BUN/Creatinine Ratio 17.9, Glucose 82, Calcium 8.0 L Diagnostic Data Chest X-Ray 09/05/18 14:14 IMPRESSION: No acute cardiopulmonary findings Electronically Signed: Eliseo Raza DO at 14:45 EDT Tel , Service support , Chest CTA 09/05/18 15:10 IMPRESSION: No evidence for PE. Mild to moderate aortic coarctation. COPD. Atelectasis or scarring in the posterior lung bases. Electronically Signed: Jose Jacobo MD at 16:07 EDT , Service support , Abdomen CT 09/07/18 08:23 IMPRESSION: Diffuse submucosal thickening of the majority of the colon, most notably in the sigmoid colon. There is pericolonic inflammatory stranding and induration of the mesenteric and retroperitoneal fat. Findings could represent C. difficile colitis though inflammatory colitis can have a similar appearance and the sigmoid diverticulitis could also be present. Underlying sigmoid lesion cannot be excluded. Uterus is still present, the endometrium cannot be accurately evaluated with CT. No suspicious cystic mass noted in the pelvis there is dependent free fluid No suspicious solid organ abnormality Electronically Signed: Nader Hall MD at 11:41 EDT , Service support , Current Medications Acetaminophen (Tylenol) 650 mg PO Q6H PRN PRN PRN Reason: Non-cardiac pain (mod-severe) Last Admin: 09/08/18 05:22 Dose: 650 mg Hydrocodone Bitart/Acetaminophen ([place] 5mg-325mg) 1 - 2 tablet PO Q6H PRN PRN PRN Reason: MOD-SEVERE PAIN (4-10/10) Al Hydroxide/Mg Hydroxide (Mylanta Ii) 15 - 30 ml PO Q4H PRN PRN PRN Reason: INDIGESTION Last Admin: 09/06/18 19:08 Dose: 30 ml Albuterol Sulfate (Ventolin Aerosols) 2.5 mg INHALATION Q2H PRN PRN PRN Reason: dyspnea, wheezing Aspirin (Ecotrin) 81 mg PO DAILY@0800 [facility] Last Admin: 09/09/18 08:26 Dose: 81 mg Diltiazem HCl (Cardizem Cd) 120 mg PO DAILY [facility] Last Admin: 09/09/18 08:26 Dose: 120 mg Enoxaparin Sodium (Lovenox) 40 mg SC DAILY@1000 [facility] Last Admin: 09/09/18 08:40 Dose: 40 mg Famotidine (Pepcid) 20 mg PO BID [facility] Last Admin: 09/09/18 08:26 Dose: 20 mg Heparin Sodium (Beef Lung) () 50 units IV UD PRN PRN Reason: HEPARIN FLUSH Sodium Chloride () 250 mls @ 15 mls/hr IV .[id number] PRN PRN Reason: SALINE FLUSH Meropenem 500 mg/ Sodium (Chloride) 60 mls @ 100 mls/hr IV Q8 [facility] Last Admin: 09/09/18 06:13 Dose: 100 mls/hr Lactated Ringer's () 1,000 mls @ 100 mls/hr IV .Q10H [facility] Last Admin: 09/09/18 06:14 Dose: 100 mls/hr Magnesium Hydroxide (Milk Of Magnesia) 30 ml PO DAILY PRN PRN PRN Reason: Constipation Metoprolol Tartrate (Lopressor (Beta Anika)) 25 mg PO BID [facility] Last Admin: 09/09/18 08:26 Dose: 25 mg Nitroglycerin (Nitrostat) 0.4 mg SUBLINGUAL Q5M PRN PRN Reason: CARDIAC/CHEST PAIN Nutritional Formula (Lactose Free) (Ensure Clear) 120 ml PO 4X/DAY [facility] Last Admin: 09/09/18 08:26 Dose: 120 ml Ondansetron HCl (Zofran) 4 mg IV Q8H PRN PRN PRN Reason: NAUSEA/VOMITING Sertraline HCl (Zoloft) 200 mg PO DAILY [facility] Last Admin: 09/09/18 08:25 Dose: 200 mg Sodium Chloride () 5 - 15 ml IV UD PRN PRN Reason: SALINE FLUSH Last Admin: 09/08/18 21:12 Dose: 10 ml Sodium Chloride () 10 - 20 ml IV UD PRN PRN Reason: PICC FLUSH Vancomycin HCl () 125 mg PO Q6 [facility] Last Admin: 09/09/18 06:13 Dose: 125 mg Medical Necessity - Tobacco Use Smoking Status: Never smoker Tobacco Use: Non-smoker Assessment/Plan All Active Problems (Last Reviewed 09/07/18 @ 10:12 by Shantel James PA-C) Hypotension (Acute) Abdominal pain (Acute) Dyspnea on exertion (Acute) Abnormal stress echo (Acute) 1. Hypovolemic shock due to fluid loss and medications. resolved. required pressors but was transferred to PCU on 09/06 after she stabilised. BP meds are on hold- quinapril/HCTZ, cardizem. continue monitoring generalised hives and swelling of lips have resolved. 2. ESBL E. coli cystitis: on meropenem. 3. C Diff colitis: still complains of abdominal pain and diarrhea. CT abdomen showed diffuse mucosal thickening, mainly in sigmoid colon. general surgery on board on PO vancomycin; continue clear diet for now. To follow up with general surgery for possible sigmoidectomy 4. Hypertension: BP meds on hold o/a of 1. BP well controlled. 5. Hyperlipidemia: Tricor on hold 6. CHASIDY: resolved. Cr was 1.29 on admission; Cr now down to 0.67; baseline is ~ 0.86 7. History of SVT: stable 8. Anxiety and depression: on sertraline 9. History of diverticulitis: stable. Was recently treated with antibiotics DVT prophylaxis: lovenox Code Visit Inpatient E&M: 10758 [facility] Hosp L3
--- NOTE | 2018-09-09 12:38 | PN_ITS ---
Patient Problems: Active and Suspected Problems (Last Reviewed 09/07/18 @ 10:12 by Shantel James PA-C) Hypotension (Acute) Abdominal pain (Acute) Subjective: Patient seen and examined. She does still complain of abdominal pain and states his been having frequent diarrheal episodes which is due to C. difficile infection. She denies any fever chills, nausea vomiting no cough. Review of systems otherwise negative. Labs and vitals reviewed. Vitals/I&O's: Vital Signs Temp Pulse Resp BP Pulse Ox 98.5 F 77 16 105/66 93 09/09/18 08:24 09/09/18 10:59 09/09/18 08:24 09/09/18 08:26 09/09/18 08:24 Oxygen Flow Rate (L/min) 2 Oxygen Delivery Method Room Air Weight: 153 lb 3.54 oz Body Mass Index (BMI) 24.8 Intake and Output for Last 24 Hours 09/07/18 09/08/18 09/09/18 23:59 23:59 23:59 Intake Total 2137 / 2137 3400 / 3400 636 / 636 Output Total 103 / 103 400 / 400 Balance 2033 / 2033 3000 / 3000 636 / 636 General: Alert, Oriented x3, Cooperative HEENT: Atraumatic, PERRLA, EOMI, Normocephalic Oral: Dry Mucosa Neck: Supple, No JVD, Negative Carotid Bruits Lungs: Clear to auscultation, Normal air movement, No rhonchi, No wheeze, No rales Cardiovascular: Regular rate, Regular Rhythm, Normal S1, Normal S2, No murmurs Abdomen: Bowel Sounds Present, Soft, Non-Distended, No Hepato-splenomegaly, - - mild generalised tenderness Extremities: No clubbing, No cyanosis, No edema, Capillary Refill Less than 3 Seconds Skin: No rashes, No breakdown Musculoskeletal: No Tenderness to Palpation of Joints or Extremities Lymphatic: No Cervical, Supraclavicular, or Inguinal Adenopathy Neurological: Cranial nerves II-XII grossly intact, Neuro grossly intact, Motor Exam 5/5 strength throughout Psych/Mental Status: Normal Affect, Appropriate, Alert and oriented to time, place, person, mood and affect Microbiology Past 72 Hours 09/05/18 14:38 Blood Culture (Wb) - Anticubital Left Blood Culture - Preliminary No growth in 48 hours. 09/05/18 14:30 Blood Culture (Wb) - Anticubital Right Blood Culture - Preliminary No growth in 48 hours. 09/05/18 Unknown Urine, Random Urine Culture - Final Presumptive E. coli 09/07/18 13:20 Stool C. difficile DNA Amplification - Final Toxigenic C. difficile DNA 09/07/18 13:20 Stool Stool Lactoferrin - Final 09/07/18 13:20 Stool Stool Occult Blood (KARMEN) - Final Laboratory Results 09/09/18 10:21: Sodium 139, Potassium 4.2, Chloride 112 H, Carbon Dioxide 22.0, Anion Gap 5, BUN 12, Creatinine 0.67, Estim Creat Clear Calc 45.20, Est GFR (MDRD) Af Amer 111, Est GFR (MDRD) Non-Af 92, BUN/Creatinine Ratio 17.9, Glucose 82, Calcium 8.0 L Diagnostic Data Chest X-Ray 09/05/18 14:14 IMPRESSION: No acute cardiopulmonary findings Electronically Signed: Eliseo Raza DO at 14:45 EDT Tel , Service support , Chest CTA 09/05/18 15:10 IMPRESSION: No evidence for PE. Mild to moderate aortic coarctation. COPD. Atelectasis or scarring in the posterior lung bases. Electronically Signed: Jose Jacobo MD at 16:07 EDT , Service support , Abdomen CT 09/07/18 08:23 IMPRESSION: Diffuse submucosal thickening of the majority of the colon, most notably in the sigmoid colon. There is pericolonic inflammatory stranding and induration of the mesenteric and retroperitoneal fat. Findings could represent C. difficile colitis though inflammatory colitis can have a similar appearance and the sigmoid diverticulitis could also be present. Underlying sigmoid lesion cannot be excluded. Uterus is still present, the endometrium cannot be accurately evaluated with CT. No suspicious cystic mass noted in the pelvis there is dependent free fluid No suspicious solid organ abnormality Electronically Signed: Nader Hall MD at 11:41 EDT , Service support , Current Medications Acetaminophen (Tylenol) 650 mg PO Q6H PRN PRN PRN Reason: Non-cardiac pain (mod-severe) Last Admin: 09/08/18 05:22 Dose: 650 mg Hydrocodone Bitart/Acetaminophen (Dorothy 5mg-325mg) 1 - 2 tablet PO Q6H PRN PRN PRN Reason: MOD-SEVERE PAIN (4-10/10) Al Hydroxide/Mg Hydroxide (Mylanta Ii) 15 - 30 ml PO Q4H PRN PRN PRN Reason: INDIGESTION Last Admin: 09/06/18 19:08 Dose: 30 ml Albuterol Sulfate (Ventolin Aerosols) 2.5 mg INHALATION Q2H PRN PRN PRN Reason: dyspnea, wheezing Aspirin (Ecotrin) 81 mg PO DAILY@0800 [facility] Last Admin: 09/09/18 08:26 Dose: 81 mg Diltiazem HCl (Cardizem Cd) 120 mg PO DAILY [facility] Last Admin: 09/09/18 08:26 Dose: 120 mg Enoxaparin Sodium (Lovenox) 40 mg SC DAILY@1000 [facility] Last Admin: 09/09/18 08:40 Dose: 40 mg Famotidine (Pepcid) 20 mg PO BID [facility] Last Admin: 09/09/18 08:26 Dose: 20 mg Heparin Sodium (Beef Lung) () 50 units IV UD PRN PRN Reason: HEPARIN FLUSH Sodium Chloride () 250 mls @ 15 mls/hr IV .[id number] PRN PRN Reason: SALINE FLUSH Meropenem 500 mg/ Sodium (Chloride) 60 mls @ 100 mls/hr IV Q8 [facility] Last Admin: 09/09/18 06:13 Dose: 100 mls/hr Lactated Ringer's () 1,000 mls @ 100 mls/hr IV .Q10H [facility] Last Admin: 09/09/18 06:14 Dose: 100 mls/hr Magnesium Hydroxide (Milk Of Magnesia) 30 ml PO DAILY PRN PRN PRN Reason: Constipation Metoprolol Tartrate (Lopressor (Beta Anika)) 25 mg PO BID [facility] Last Admin: 09/09/18 08:26 Dose: 25 mg Nitroglycerin (Nitrostat) 0.4 mg SUBLINGUAL Q5M PRN PRN Reason: CARDIAC/CHEST PAIN Nutritional Formula (Lactose Free) (Ensure Clear) 120 ml PO 4X/DAY [facility] Last Admin: 09/09/18 08:26 Dose: 120 ml Ondansetron HCl (Zofran) 4 mg IV Q8H PRN PRN PRN Reason: NAUSEA/VOMITING Sertraline HCl (Zoloft) 200 mg PO DAILY [facility] Last Admin: 09/09/18 08:25 Dose: 200 mg Sodium Chloride () 5 - 15 ml IV UD PRN PRN Reason: SALINE FLUSH Last Admin: 09/08/18 21:12 Dose: 10 ml Sodium Chloride () 10 - 20 ml IV UD PRN PRN Reason: PICC FLUSH Vancomycin HCl () 125 mg PO Q6 [facility] Last Admin: 09/09/18 06:13 Dose: 125 mg Medical Necessity - Tobacco Use Smoking Status: Never smoker Tobacco Use: Non-smoker Assessment/Plan All Active Problems (Last Reviewed 09/07/18 @ 10:12 by Shantel James PA-C) Hypotension (Acute) Abdominal pain (Acute) Dyspnea on exertion (Acute) Abnormal stress echo (Acute) 1. Hypovolemic shock due to fluid loss and medications. * resolved. * required pressors but was transferred to PCU on 09/06 after she stabilised. * BP meds are on hold- quinapril/HCTZ, cardizem. * continue monitoring * generalised hives and swelling of lips have resolved. * 2. ESBL E. coli cystitis: on meropenem. 3. C Diff colitis: * still complains of abdominal pain and diarrhea. * CT abdomen showed diffuse mucosal thickening, mainly in sigmoid colon. * general surgery on board * on PO vancomycin; continue clear diet for now. To follow up with general surgery for possible sigmoidectomy * 4. Hypertension: BP meds on hold o/a of 1. BP well controlled. 5. Hyperlipidemia: Tricor on hold 6. CHASIDY: resolved. Cr was 1.29 on admission; Cr now down to 0.67; baseline is ~ 0.86 7. History of SVT: stable 8. Anxiety and depression: on sertraline 9. History of diverticulitis: stable. Was recently treated with antibiotics DVT prophylaxis: lovenox Code Visit Inpatient E&M: 74388 [facility] Hosp L3
[2018-09-10] VITALS (13 sets, daily range): BP systolic 106–125; BP diastolic 69–78; PULSE 67–95; RESP 16–18; TEMP 36.6–37.7; O2SAT 93–99
[2018-09-10] MEDS: Lactated Ringers 1,000 ML 100 ML IV ×2 (05:33→17:33)
[2018-09-10 07:36] LABS: Absolute Lymphocyte Count 0.81 X10^3/ul (0.83-4.51); Absolute Neutrophil Count 3.4 X10^3/uL (2.0-7.7); Basophil# 0.02 X10^3/uL; Basophil% 0.4 % (0-1); Eosinophil# 0.27 X10^3/uL; Eosinophils% 5.6 % (0-5); Hematocrit 34.2 % (37-47); Hemoglobin 11.2 g/dl (12.0-15.0); Lymphocyte # 0.81 X10^3/ul (4.0); Lymphocyte % 16.8 % (19-41); Mean Corp Hgb Conc 32.7 g/gl (32-36); Mean Corpuscular Volume 88.6 fL (81-99); Mean Platelet Vol. 11.2 fl (6.2-12.0); Monocyte# 0.27 X10^3/uL; Monocyte% 5.6 % (0-10); Neutrophil # 3.41 X10^3/uL (2.7-7.7); Platelet Count 188 K/mm3 (150-450); RBC Distribution Width CV 15.8 % (11.6-14.6); RBC Distribution Width SD 50.7 fl (35.1-43.9); Red Blood Count 3.86 M/mm3 (4.2-5.4); White Blood Count 4.8 K/mm3 (4.4-11.0)
[2018-09-10 07:42] LABS: POSITIVE COUNT NO; POSITIVE DIFFERENTIAL NO; POSITIVE MORPHOLOGY NO
[2018-09-10 07:49] LABS: Anion Gap 7 (5-15); BUN 8 mg/dL (7-18); BUN/Creat Ratio 15.5 RATIO (10-20); Calcium,Total 7.9 mg/dL (8.5-10.1); Chloride 114 mmol/L (98-107); Creatinine, Serum 0.52 mg/dL (0.55-1.02); EST Glomerular Filtration Rate 125 mL/min (>60); Est Glom Filt Rate - Afr Amer 151 mL/min (>60); Glucose 73 mg/dL (74-106); Potassium 3.7 mmol/L (3.5-5.1); Sodium Level 143 mmol/L (136-145)
--- NOTE | 2018-09-10 07:51 | PCM.PN.SRG ---
Patient Problems: Active and Suspected Problems (Last Reviewed 09/07/18 @ 10:12 by Shantel James PA-C) Hypotension (Acute) Abdominal pain (Acute) Subjective: Patient tolerating clears, pain improved still a 5/10 at times patient states diarrhea is also improved. - Physical Exam General: Alert, Oriented x3, Cooperative, No apparent distress Cardiovascular: Regular rate Abdomen: Soft, Non-Distended, Passing Flatus, Tender - Left lower quadrant greater than right lower quadrant Vital Signs Temp Pulse Resp BP Pulse Ox 98.3 F 71 18 125/77 H 95 09/10/18 04:40 09/10/18 06:48 09/10/18 04:40 09/10/18 04:40 09/10/18 04:40 Oxygen Flow Rate (L/min) 2 Oxygen Delivery Method Room Air Weight: 152 lb 8.958 oz Body Mass Index (BMI) 24.8 Intake and Output for Last 24 Hours 09/08/18 09/09/18 09/10/18 23:59 23:59 23:59 Intake Total 3400 / 3400 2573 / 2573 1406 / 1406 Output Total 400 / 400 400 / 400 Balance 3000 / 3000 2573 / 2573 1006 / 1006 Microbiology Past 72 Hours 09/05/18 14:38 Blood Culture - Preliminary Blood Culture (Wb) - Anticubital Left No growth in 48 hours. 09/05/18 14:30 Blood Culture - Preliminary Blood Culture (Wb) - Anticubital Right No growth in 48 hours. 09/05/18 Unknown Urine Culture - Final Urine, Random Presumptive E. coli 09/07/18 13:20 C. difficile DNA Amplification - Final Stool Toxigenic C. difficile DNA 09/07/18 13:20 Stool Lactoferrin - Final Stool 09/07/18 13:20 Stool Occult Blood (KARMEN) - Final Stool Laboratory Tests Past 24 Hrs 09/09/18 09/10/18 09/10/18 10:21 06:09 06:09 WBC 4.8 RBC 3.86 L Hgb 11.2 L Hct 34.2 L MCV 88.6 MCH 29.0 MCHC 32.7 RDW 15.8 H RDW Differential 50.7 H Plt Count 188 MPV 11.2 Immature Gran % (Auto) 0.600 Neut % (Auto) 71.0 H Lymph % (Auto) 16.8 L [place] % (Auto) 5.6 Eos % (Auto) 5.6 H Baso % (Auto) 0.4 Absolute Neuts (auto) 3.4 Absolute Lymphs (auto) 0.81 L Total Counted Not Reportable Sodium 139 143 Potassium 4.2 3.7 Chloride 112 H 114 H Carbon Dioxide 22.0 22.0 Anion Gap 5 7 BUN 12 8 Creatinine 0.67 0.52 L Estim Creat Clear Calc 45.20 45.20 Est GFR (MDRD) Af Amer 111 151 Est GFR (MDRD) Non-Af 92 125 BUN/Creatinine Ratio 17.9 15.5 Glucose 82 73 L Calcium 8.0 L 7.9 L Medical Necessity - Tobacco Use Smoking Status: Never smoker Tobacco Use: Non-smoker Assessment/Plan All Active Problems (Last Reviewed 09/07/18 @ 10:12 by Shantel James PA-C) Hypotension (Acute) Abdominal pain (Acute) Dyspnea on exertion (Acute) Abnormal stress echo (Acute) 68-year-old female with C. difficile colitis, recent sigmoid diverticulitis Advance to fulls, patient's diarrhea has improved as well as pain however pain is still 5/10. Continue Vanco meropenem After discharge patient will follow up with Dr. Goodman to discuss sigmoidectomy. Annalisa Jackson M.D. Pager: [phone] [facility] [address] [place] [address], [facility], [address] [place] [address] Office: [phone] Code Visit Inpatient E&M: [id number] [facility]s Hosp L1
[2018-09-10] MEDS: Metoprolol Tartrate 25 MG Tablet PO ×2 (09:17→22:40)
[2018-09-10] MEDS: Enoxaparin 40 MG/0.4 ML Syringe SC (09:17)
[2018-09-10] MEDS: Sertraline 100 MG Tablet 200 MG PO (09:17)
[2018-09-10] MEDS: dilTIAZem CD 120 MG Capsule PO (09:17)
[2018-09-10] MEDS: Famotidine 20 MG Tablet PO ×2 (09:18→22:40)
[2018-09-10] MEDS: Aspirin E.C. 81 MG Tablet PO (09:18)
--- NOTE | 2018-09-10 10:20 | PCM.PN.HOSP ---
Patient Problems: Active and Suspected Problems (Last Reviewed 09/07/18 @ 10:12 by Shantel James PA-C) Hypotension (Acute) Abdominal pain (Acute) Subjective: Patient seen and examined. She did have any diarrhea yesterday after review but had one episode of diarrhea this morning. Abdominal pain is also improved. Review of systems otherwise negative. Labs and vitals reviewed. Vitals/I&O's: Vital Signs Temp Pulse Resp BP Pulse Ox 98.2 F 78 18 122/73 H 93 09/10/18 09:16 09/10/18 09:17 09/10/18 09:16 09/10/18 09:17 09/10/18 09:16 Oxygen Flow Rate (L/min) 2 Oxygen Delivery Method Room Air Weight: 152 lb 8.958 oz Body Mass Index (BMI) 24.8 Intake and Output for Last 24 Hours 09/08/18 09/09/18 09/10/18 23:59 23:59 23:59 Intake Total 3400 / 3400 2573 / 2573 1406 / 1406 Output Total 400 / 400 400 / 400 Balance 3000 / 3000 2573 / 2573 1006 / 1006 General: Alert, Oriented x3, Cooperative HEENT: Atraumatic, PERRLA, EOMI, Normocephalic Oral: Dry Mucosa Neck: Supple, No JVD, Negative Carotid Bruits Lungs: Clear to auscultation, Normal air movement, No rhonchi, No wheeze, No rales Cardiovascular: Regular rate, Regular Rhythm, Normal S1, Normal S2, No murmurs Abdomen: Bowel Sounds Present, Soft, Non-Distended, No Hepato-splenomegaly, - - minimal abdominal tenderness Extremities: No clubbing, No cyanosis, No edema, Capillary Refill Less than 3 Seconds Skin: No rashes, No breakdown Musculoskeletal: No Tenderness to Palpation of Joints or Extremities Lymphatic: No Cervical, Supraclavicular, or Inguinal Adenopathy Neurological: Cranial nerves II-XII grossly intact, Neuro grossly intact, Motor Exam 5/5 strength throughout Psych/Mental Status: Normal Affect, Appropriate, Alert and oriented to time, place, person, mood and affect Microbiology Past 72 Hours 09/05/18 14:38 Blood Culture (Wb) - Anticubital Left Blood Culture - Preliminary No growth in 48 hours. 09/05/18 14:30 Blood Culture (Wb) - Anticubital Right Blood Culture - Preliminary No growth in 48 hours. 09/05/18 Unknown Urine, Random Urine Culture - Final Presumptive E. coli 09/07/18 13:20 Stool C. difficile DNA Amplification - Final Toxigenic C. difficile DNA 09/07/18 13:20 Stool Stool Lactoferrin - Final 09/07/18 13:20 Stool Stool Occult Blood (KARMEN) - Final Laboratory Results 09/09/18 10:21: Sodium 139, Potassium 4.2, Chloride 112 H, Carbon Dioxide 22.0, Anion Gap 5, BUN 12, Creatinine 0.67, Estim Creat Clear Calc 45.20, Est GFR (MDRD) Af Amer 111, Est GFR (MDRD) Non-Af 92, BUN/Creatinine Ratio 17.9, Glucose 82, Calcium 8.0 L 09/10/18 06:09: WBC 4.8, RBC 3.86 L, Hgb 11.2 L, Hct 34.2 L, MCV 88.6, MCH 29.0, MCHC 32.7, RDW 15.8 H, RDW Differential 50.7 H, Plt Count 188, MPV 11.2, Immature Gran % (Auto) 0.600, Neut % (Auto) 71.0 H, Lymph % (Auto) 16.8 L, [place] % (Auto) 5.6, Eos % (Auto) 5.6 H, Baso % (Auto) 0.4, Absolute Neuts (auto) 3.4, Absolute Lymphs (auto) 0.81 L, Total Counted Not Reportable 09/10/18 06:09: Sodium 143, Potassium 3.7, Chloride 114 H, Carbon Dioxide 22.0, Anion Gap 7, BUN 8, Creatinine 0.52 L, Estim Creat Clear Calc 45.20, Est GFR (MDRD) Af Amer 151, Est GFR (MDRD) Non-Af 125, BUN/Creatinine Ratio 15.5, Glucose 73 L, Calcium 7.9 L Current Medications Acetaminophen (Tylenol) 650 mg PO Q6H PRN PRN PRN Reason: Non-cardiac pain (mod-severe) Last Admin: 09/08/18 05:22 Dose: 650 mg Hydrocodone Bitart/Acetaminophen ([place] 5mg-325mg) 1 - 2 tablet PO Q6H PRN PRN PRN Reason: MOD-SEVERE PAIN (4-10) Al Hydroxide/Mg Hydroxide (Mylanta Ii) 15 - 30 ml PO Q4H PRN PRN PRN Reason: INDIGESTION Last Admin: 09/06/18 19:08 Dose: 30 ml Albuterol Sulfate (Ventolin Aerosols) 2.5 mg INHALATION Q2H PRN PRN PRN Reason: dyspnea, wheezing Aspirin (Ecotrin) 81 mg PO DAILY@0800 [facility] Last Admin: 09/10/18 09:18 Dose: 81 mg Diltiazem HCl (Cardizem Cd) 120 mg PO DAILY [facility] Last Admin: 09/10/18 09:17 Dose: 120 mg Enoxaparin Sodium (Lovenox) 40 mg SC DAILY@1000 [facility] Last Admin: 09/10/18 09:17 Dose: 40 mg Famotidine (Pepcid) 20 mg PO BID [facility] Last Admin: 09/10/18 09:18 Dose: 20 mg Heparin Sodium (Beef Lung) () 50 units IV UD PRN PRN Reason: HEPARIN FLUSH Sodium Chloride () 250 mls @ 15 mls/hr IV .[id number] PRN PRN Reason: SALINE FLUSH Meropenem 500 mg/ Sodium (Chloride) 60 mls @ 100 mls/hr IV Q8 [facility] Last Admin: 09/10/18 05:33 Dose: 100 mls/hr Lactated Ringer's () 1,000 mls @ 100 mls/hr IV .Q10H [facility] Last Admin: 09/10/18 05:33 Dose: 100 mls/hr Magnesium Hydroxide (Milk Of Magnesia) 30 ml PO DAILY PRN PRN PRN Reason: Constipation Metoprolol Tartrate (Lopressor (Beta Anika)) 25 mg PO BID [facility] Last Admin: 09/10/18 09:17 Dose: 25 mg Nitroglycerin (Nitrostat) 0.4 mg SUBLINGUAL Q5M PRN PRN Reason: CARDIAC/CHEST PAIN Nutritional Formula (Lactose Free) (Ensure Enlive) 120 ml PO 4X/DAY [facility] Last Admin: 09/10/18 09:17 Dose: 120 ml Ondansetron HCl (Zofran) 4 mg IV Q8H PRN PRN PRN Reason: NAUSEA/VOMITING Sertraline HCl (Zoloft) 200 mg PO DAILY [facility] Last Admin: 09/10/18 09:17 Dose: 200 mg Sodium Chloride () 5 - 15 ml IV UD PRN PRN Reason: SALINE FLUSH Last Admin: 09/08/18 21:12 Dose: 10 ml Sodium Chloride () 10 - 20 ml IV UD PRN PRN Reason: PICC FLUSH Vancomycin HCl () 125 mg PO Q6 [facility] Last Admin: 09/10/18 05:35 Dose: 125 mg Medical Necessity - Tobacco Use Smoking Status: Never smoker Tobacco Use: Non-smoker Assessment/Plan All Active Problems (Last Reviewed 09/07/18 @ 10:12 by Shantel James PA-C) Hypotension (Acute) Abdominal pain (Acute) Dyspnea on exertion (Acute) Abnormal stress echo (Acute) 1. Hypovolemic shock due to fluid loss and medications. resolved. BP meds are on hold- quinapril/HCTZ, cardizem. continue monitoring generalised hives and swelling of lips have resolved. 2. ESBL E. coli cystitis: on meropenem. today is day 4 of Meropenem 3. C Diff colitis: abdominal pain has improved, and she had only one episode of diarrhea this morning. CT abdomen showed diffuse mucosal thickening, mainly in sigmoid colon. general surgery on board on PO vancomycin; diet advanced to full liquids by general surgery this morning. To follow up with general surgery for possible sigmoidectomy 4. Hypertension: BP meds on hold o/a of 1. BP well controlled. 5. Hyperlipidemia: Tricor on hold 6. CHASIDY: resolved. 7. History of SVT: stable. On cardizem 8. Anxiety and depression: on sertraline 9. History of diverticulitis: stable. DVT prophylaxis: lovenox Code Visit Inpatient E&M: [id number] Subs Hosp L2
--- NOTE | 2018-09-10 10:24 | PN_ITS ---
Patient Problems: Active and Suspected Problems (Last Reviewed 09/07/18 @ 10:12 by Shantel James PA-C) Hypotension (Acute) Abdominal pain (Acute) Subjective: Patient seen and examined. She did have any diarrhea yesterday after review but had one episode of diarrhea this morning. Abdominal pain is also improved. Review of systems otherwise negative. Labs and vitals reviewed. Vitals/I&O's: Vital Signs Temp Pulse Resp BP Pulse Ox 98.2 F 78 18 122/73 H 93 09/10/18 09:16 09/10/18 09:17 09/10/18 09:16 09/10/18 09:17 09/10/18 09:16 Oxygen Flow Rate (L/min) 2 Oxygen Delivery Method Room Air Weight: 152 lb 8.958 oz Body Mass Index (BMI) 24.8 Intake and Output for Last 24 Hours 09/08/18 09/09/18 09/10/18 23:59 23:59 23:59 Intake Total 3400 / 3400 2573 / 2573 1406 / 1406 Output Total 400 / 400 400 / 400 Balance 3000 / 3000 2573 / 2573 1006 / 1006 General: Alert, Oriented x3, Cooperative HEENT: Atraumatic, PERRLA, EOMI, Normocephalic Oral: Dry Mucosa Neck: Supple, No JVD, Negative Carotid Bruits Lungs: Clear to auscultation, Normal air movement, No rhonchi, No wheeze, No rales Cardiovascular: Regular rate, Regular Rhythm, Normal S1, Normal S2, No murmurs Abdomen: Bowel Sounds Present, Soft, Non-Distended, No Hepato-splenomegaly, - - minimal abdominal tenderness Extremities: No clubbing, No cyanosis, No edema, Capillary Refill Less than 3 Seconds Skin: No rashes, No breakdown Musculoskeletal: No Tenderness to Palpation of Joints or Extremities Lymphatic: No Cervical, Supraclavicular, or Inguinal Adenopathy Neurological: Cranial nerves II-XII grossly intact, Neuro grossly intact, Motor Exam 5/5 strength throughout Psych/Mental Status: Normal Affect, Appropriate, Alert and oriented to time, place, person, mood and affect Microbiology Past 72 Hours 09/05/18 14:38 Blood Culture (Wb) - Anticubital Left Blood Culture - Preliminary No growth in 48 hours. 09/05/18 14:30 Blood Culture (Wb) - Anticubital Right Blood Culture - Preliminary No growth in 48 hours. 09/05/18 Unknown Urine, Random Urine Culture - Final Presumptive E. coli 09/07/18 13:20 Stool C. difficile DNA Amplification - Final Toxigenic C. difficile DNA 09/07/18 13:20 Stool Stool Lactoferrin - Final 09/07/18 13:20 Stool Stool Occult Blood (KARMEN) - Final Laboratory Results 09/09/18 10:21: Sodium 139, Potassium 4.2, Chloride 112 H, Carbon Dioxide 22.0, Anion Gap 5, BUN 12, Creatinine 0.67, Estim Creat Clear Calc 45.20, Est GFR (MDRD) Af Amer 111, Est GFR (MDRD) Non-Af 92, BUN/Creatinine Ratio 17.9, Glucose 82, Calcium 8.0 L 09/10/18 06:09: WBC 4.8, RBC 3.86 L, Hgb 11.2 L, Hct 34.2 L, MCV 88.6, MCH 29.0, MCHC 32.7, RDW 15.8 H, RDW Differential 50.7 H, Plt Count 188, MPV 11.2, Immature Gran % (Auto) 0.600, Neut % (Auto) 71.0 H, Lymph % (Auto) 16.8 L, [place] % (Auto) 5.6, Eos % (Auto) 5.6 H, Baso % (Auto) 0.4, Absolute Neuts (auto) 3.4, Absolute Lymphs (auto) 0.81 L, Total Counted Not Reportable 09/10/18 06:09: Sodium 143, Potassium 3.7, Chloride 114 H, Carbon Dioxide 22.0, Anion Gap 7, BUN 8, Creatinine 0.52 L, Estim Creat Clear Calc 45.20, Est GFR (MDRD) Af Amer 151, Est GFR (MDRD) Non-Af 125, BUN/Creatinine Ratio 15.5, Glucose 73 L, Calcium 7.9 L Current Medications Acetaminophen (Tylenol) 650 mg PO Q6H PRN PRN PRN Reason: Non-cardiac pain (mod-severe) Last Admin: 09/08/18 05:22 Dose: 650 mg Hydrocodone Bitart/Acetaminophen ([place] 5mg-325mg) 1 - 2 tablet PO Q6H PRN PRN PRN Reason: MOD-SEVERE PAIN (4-10) Al Hydroxide/Mg Hydroxide (Mylanta Ii) 15 - 30 ml PO Q4H PRN PRN PRN Reason: INDIGESTION Last Admin: 09/06/18 19:08 Dose: 30 ml Albuterol Sulfate (Ventolin Aerosols) 2.5 mg INHALATION Q2H PRN PRN PRN Reason: dyspnea, wheezing Aspirin (Ecotrin) 81 mg PO DAILY@0800 [facility] Last Admin: 09/10/18 09:18 Dose: 81 mg Diltiazem HCl (Cardizem Cd) 120 mg PO DAILY [facility] Last Admin: 09/10/18 09:17 Dose: 120 mg Enoxaparin Sodium (Lovenox) 40 mg SC DAILY@1000 [facility] Last Admin: 09/10/18 09:17 Dose: 40 mg Famotidine (Pepcid) 20 mg PO BID [facility] Last Admin: 09/10/18 09:18 Dose: 20 mg Heparin Sodium (Beef Lung) () 50 units IV UD PRN PRN Reason: HEPARIN FLUSH Sodium Chloride () 250 mls @ 15 mls/hr IV .[id number] PRN PRN Reason: SALINE FLUSH Meropenem 500 mg/ Sodium (Chloride) 60 mls @ 100 mls/hr IV Q8 [facility] Last Admin: 09/10/18 05:33 Dose: 100 mls/hr Lactated Ringer's () 1,000 mls @ 100 mls/hr IV .Q10H [facility] Last Admin: 09/10/18 05:33 Dose: 100 mls/hr Magnesium Hydroxide (Milk Of Magnesia) 30 ml PO DAILY PRN PRN PRN Reason: Constipation Metoprolol Tartrate (Lopressor (Beta Anika)) 25 mg PO BID [facility] Last Admin: 09/10/18 09:17 Dose: 25 mg Nitroglycerin (Nitrostat) 0.4 mg SUBLINGUAL Q5M PRN PRN Reason: CARDIAC/CHEST PAIN Nutritional Formula (Lactose Free) (Ensure Enlive) 120 ml PO 4X/DAY [facility] Last Admin: 09/10/18 09:17 Dose: 120 ml Ondansetron HCl (Zofran) 4 mg IV Q8H PRN PRN PRN Reason: NAUSEA/VOMITING Sertraline HCl (Zoloft) 200 mg PO DAILY [facility] Last Admin: 09/10/18 09:17 Dose: 200 mg Sodium Chloride () 5 - 15 ml IV UD PRN PRN Reason: SALINE FLUSH Last Admin: 09/08/18 21:12 Dose: 10 ml Sodium Chloride () 10 - 20 ml IV UD PRN PRN Reason: PICC FLUSH Vancomycin HCl () 125 mg PO Q6 [facility] Last Admin: 09/10/18 05:35 Dose: 125 mg Medical Necessity - Tobacco Use Smoking Status: Never smoker Tobacco Use: Non-smoker Assessment/Plan All Active Problems (Last Reviewed 09/07/18 @ 10:12 by Shantel James PA-C) Hypotension (Acute) Abdominal pain (Acute) Dyspnea on exertion (Acute) Abnormal stress echo (Acute) 1. Hypovolemic shock due to fluid loss and medications. * resolved. * BP meds are on hold- quinapril/HCTZ, cardizem. * continue monitoring * generalised hives and swelling of lips have resolved. * 2. ESBL E. coli cystitis: on meropenem. today is day 4 of Meropenem 3. C Diff colitis: * abdominal pain has improved, and she had only one episode of diarrhea this morning. * CT abdomen showed diffuse mucosal thickening, mainly in sigmoid colon. * general surgery on board * on PO vancomycin; * diet advanced to full liquids by general surgery this morning. * To follow up with general surgery for possible sigmoidectomy * 4. Hypertension: BP meds on hold o/a of 1. BP well controlled. 5. Hyperlipidemia: Tricor on hold 6. CHASIDY: resolved. 7. History of SVT: stable. On cardizem 8. Anxiety and depression: on sertraline 9. History of diverticulitis: stable. DVT prophylaxis: lovenox Code Visit Inpatient E&M: 35243 Subs Hosp L2
[2018-09-11] VITALS (14 sets, daily range): BP systolic 114–121; BP diastolic 66–77; PULSE 67–92; RESP 16–18; TEMP 36.7–37.3; O2SAT 92–98
[2018-09-11] MEDS: Lactated Ringers 1,000 ML 100 ML IV ×2 (04:25→17:52)
[2018-09-11 06:36] LABS: Absolute Lymphocyte Count 0.98 X10^3/ul (0.83-4.51); Basophil# 0.03 X10^3/uL; Basophil% 0.7 % (0-1); Eosinophil# 0.24 X10^3/uL; Eosinophils% 5.3 % (0-5); Hemoglobin 11.3 g/dl (12.0-15.0); Lymphocyte # 0.98 X10^3/ul (4.0); Lymphocyte % 21.5 % (19-41); Mean Corp Hgb Conc 33.2 g/gl (32-36); Mean Corpuscular Hgb 29.3 pg (27.0-32.0); Mean Corpuscular Volume 88.1 fL (81-99); Monocyte# 0.31 X10^3/uL; Monocyte% 6.8 % (0-10); Neutrophil # 2.96 X10^3/uL (2.7-7.7); Platelet Count 184 K/mm3 (150-450); RBC Distribution Width CV 15.6 % (11.6-14.6); Red Blood Count 3.86 M/mm3 (4.2-5.4); White Blood Count 4.6 K/mm3 (4.4-11.0)
[2018-09-11 06:38] LABS: POSITIVE COUNT NO; POSITIVE DIFFERENTIAL NO; POSITIVE MORPHOLOGY NO
[2018-09-11 07:05] LABS: Anion Gap 5 (5-15); BUN 7 mg/dL (7-18); Calcium,Total 8.1 mg/dL (8.5-10.1); Chloride 113 mmol/L (98-107); Creatinine, Serum 0.64 mg/dL (0.55-1.02); EST Glomerular Filtration Rate 98 mL/min (>60); Est Glom Filt Rate - Afr Amer 118 mL/min (>60); Glucose 82 mg/dL (74-106); Potassium 3.8 mmol/L (3.5-5.1); Sodium Level 143 mmol/L (136-145)
[2018-09-11] MEDS: dilTIAZem CD 120 MG Capsule PO (08:45)
[2018-09-11] MEDS: Enoxaparin 40 MG/0.4 ML Syringe SC (08:45)
[2018-09-11] MEDS: Sertraline 100 MG Tablet 200 MG PO (08:46)
[2018-09-11] MEDS: Famotidine 20 MG Tablet PO ×2 (08:46→22:03)
[2018-09-11] MEDS: Aspirin E.C. 81 MG Tablet PO (08:46)
[2018-09-11] MEDS: Metoprolol Tartrate 25 MG Tablet PO ×2 (08:47→22:02)
--- NOTE | 2018-09-11 10:15 | PCM.PN.SRG ---
Patient Problems: Active and Suspected Problems (Last Reviewed 09/07/18 @ 10:12 by Shantel James PA-C) Hypotension (Acute) Abdominal pain (Acute) Subjective: Patient evaluated resting comfortably in bed. She notes continued abdominal pain in the lower abdomen/pelvis region. She notes this is unchanged since admission. She denies nausea, vomiting. She continues to note multiple diarrhea episodes. - Physical Exam General: Alert, Oriented x3, Cooperative Abdomen: Soft, Hypoactive Bowel Sounds, Tender - Lower abdomen bilaterally Vital Signs Temp Pulse Resp BP Pulse Ox 98.1 F 67 18 120/66 92 09/11/18 08:51 09/11/18 08:51 09/11/18 08:51 09/11/18 08:51 09/11/18 08:51 Oxygen Flow Rate (L/min) 2 Oxygen Delivery Method Room Air Weight: 153 lb 10.595 oz Body Mass Index (BMI) 24.8 Intake and Output for Last 24 Hours 09/09/18 09/10/18 09/11/18 23:59 23:59 23:59 Intake Total 2573 / 2573 2590 / 2590 706 / 706 Output Total 400 / 400 200 / 200 Balance 2573 / 2573 2190 / 2190 506 / 506 Microbiology Past 72 Hours 09/05/18 14:38 Blood Culture - Final Blood Culture (Wb) - Anticubital Left No growth in 5 days. 09/05/18 14:30 Blood Culture - Final Blood Culture (Wb) - Anticubital Right No growth in 5 days. 09/05/18 Unknown Urine Culture - Final Urine, Random Presumptive E. coli Laboratory Tests Past 24 Hrs 09/11/18 09/11/18 06:20 06:20 WBC 4.6 RBC 3.86 L Hgb 11.3 L Hct 34.0 L MCV 88.1 MCH 29.3 MCHC 33.2 RDW 15.6 H RDW Differential 50.0 H Plt Count 184 MPV 10.0 Immature Gran % (Auto) 0.700 Neut % (Auto) 65.0 Lymph % (Auto) 21.5 [place] % (Auto) 6.8 Eos % (Auto) 5.3 H Baso % (Auto) 0.7 Absolute Neuts (auto) 3.0 Absolute Lymphs (auto) 0.98 Total Counted Not Reportable Sodium 143 Potassium 3.8 Chloride 113 H Carbon Dioxide 25.0 Anion Gap 5 BUN 7 Creatinine 0.64 Estim Creat Clear Calc 45.20 Est GFR (MDRD) Af Amer 118 Est GFR (MDRD) Non-Af 98 BUN/Creatinine Ratio 11.0 Glucose 82 Calcium 8.1 L Medical Necessity - Tobacco Use Smoking Status: Never smoker Tobacco Use: Non-smoker Assessment/Plan All Active Problems (Last Reviewed 09/07/18 @ 10:12 by Shantel James PA-C) Hypotension (Acute) Abdominal pain (Acute) Dyspnea on exertion (Acute) Abnormal stress echo (Acute) I have been consulted in conjunction with Dr. Goodman. C Diff colitis Continue antibiotics No surgical intervention recommended at this time Recommend patient follow-up in 1 week from discharge to discuss sigmoidectomy Patient will need to continue oral antibiotics as an outpatient We will continue to monitor this patient Code Visit Inpatient E&M: 31491 Subs Hosp L1
--- NOTE | 2018-09-11 12:26 | RAD_ITS ---
STUDY: X-RAY - ABDOMEN/PELVIS REASON FOR EXAM: Female, 68 years old. Distention TECHNIQUE: AP supine and upright views of the abdomen and pelvis. COMPARISON: None. FINDINGS: There is no bowel obstruction. There is air and stool to the level of the rectum. There is no free air. The visualized osseous structures are within normal limits. RAD/Abd Inc Decub and/or Erect IMPRESSION: No bowel obstruction. Electronically Signed: Cj Wagner, at 16:14 EDT Tel , Service support ,
--- NOTE | 2018-09-11 15:35 | PCM.PN.HOSP ---
Patient Problems: Active and Suspected Problems (Last Reviewed 09/07/18 @ 10:12 by Shantel James PA-C) Hypotension (Acute) Abdominal pain (Acute) Subjective: Patient is still having loose bowel movement. Bilateral lower quadrants abdominal pain. Does not feel improvement since start of p.o. vancomycin for C. difficile. Discussed with surgeon Dr. Goodman and ID Dr. Davison. Vitals/I&O's: Vital Signs Temp Pulse Resp BP Pulse Ox 98.3 F 85 18 114/74 93 09/11/18 11:57 09/11/18 12:02 09/11/18 11:57 09/11/18 11:57 09/11/18 11:57 Oxygen Flow Rate (L/min) 2 Oxygen Delivery Method Room Air Weight: 152 lb 8.958 oz Body Mass Index (BMI) 24.8 Intake and Output for Last 24 Hours 09/09/18 09/10/18 09/11/18 23:59 23:59 23:59 Intake Total 2573 / 2573 2590 / 2590 1599 / 1599 Output Total 400 / 400 200 / 200 Balance 2573 / 2573 2190 / 2190 1399 / 1399 General: Alert, Oriented x3, Cooperative HEENT: Atraumatic, PERRLA, EOMI, Normocephalic Neck: Supple, No JVD, Negative Carotid Bruits Lungs: Clear to auscultation, No rhonchi, No wheeze, No rales, Diminished Cardiovascular: Regular rate, Regular Rhythm, Normal S1, Normal S2, No murmurs Abdomen: Bowel Sounds Present, Soft, Hypoactive Bowel Sounds, Tender - In bilateral lower quadrants Extremities: No edema, Capillary Refill Less than 3 Seconds Skin: No rashes, No breakdown Musculoskeletal: No Tenderness to Palpation of Joints or Extremities, Arthritic Changes Neurological: Cranial nerves II-XII grossly intact Psych/Mental Status: Normal Affect, Appropriate Microbiology Past 72 Hours 09/05/18 14:38 Blood Culture (Wb) - Anticubital Left Blood Culture - Final No growth in 5 days. 09/05/18 14:30 Blood Culture (Wb) - Anticubital Right Blood Culture - Final No growth in 5 days. Laboratory Results 09/11/18 06:20: WBC 4.6, RBC 3.86 L, Hgb 11.3 L, Hct 34.0 L, MCV 88.1, MCH 29.3, MCHC 33.2, RDW 15.6 H, RDW Differential 50.0 H, Plt Count 184, MPV 10.0, Immature Gran % (Auto) 0.700, Neut % (Auto) 65.0, Lymph % (Auto) 21.5, [place] % (Auto) 6.8, Eos % (Auto) 5.3 H, Baso % (Auto) 0.7, Absolute Neuts (auto) 3.0, Absolute Lymphs (auto) 0.98, Total Counted Not Reportable 09/11/18 06:20: Sodium 143, Potassium 3.8, Chloride 113 H, Carbon Dioxide 25.0, Anion Gap 5, BUN 7, Creatinine 0.64, Estim Creat Clear Calc 45.20, Est GFR (MDRD) Af Amer 118, Est GFR (MDRD) Non-Af 98, BUN/Creatinine Ratio 11.0, Glucose 82, Calcium 8.1 L Current Medications Acetaminophen (Tylenol) 650 mg PO Q6H PRN PRN PRN Reason: Non-cardiac pain (mod-severe) Last Admin: 09/08/18 05:22 Dose: 650 mg Hydrocodone Bitart/Acetaminophen ([place] 5mg-325mg) 1 - 2 tablet PO Q6H PRN PRN PRN Reason: MOD-SEVERE PAIN (4-10/10) Al Hydroxide/Mg Hydroxide (Mylanta Ii) 15 - 30 ml PO Q4H PRN PRN PRN Reason: INDIGESTION Last Admin: 09/06/18 19:08 Dose: 30 ml Albuterol Sulfate (Ventolin Aerosols) 2.5 mg INHALATION Q2H PRN PRN PRN Reason: dyspnea, wheezing Aspirin (Ecotrin) 81 mg PO DAILY@0800 [facility] Last Admin: 09/11/18 08:46 Dose: 81 mg Diltiazem HCl (Cardizem Cd) 120 mg PO DAILY [facility] Last Admin: 09/11/18 08:45 Dose: 120 mg Enoxaparin Sodium (Lovenox) 40 mg SC DAILY@1000 [facility] Last Admin: 09/11/18 08:45 Dose: 40 mg Famotidine (Pepcid) 20 mg PO BID [facility] Last Admin: 09/11/18 08:46 Dose: 20 mg Heparin Sodium (Beef Lung) () 50 units IV UD PRN PRN Reason: HEPARIN FLUSH Sodium Chloride () 250 mls @ 15 mls/hr IV .[id number] PRN PRN Reason: SALINE FLUSH Meropenem 500 mg/ Sodium (Chloride) 60 mls @ 100 mls/hr IV Q8 [facility] Last Admin: 09/11/18 14:48 Dose: 100 mls/hr Lactated Ringer's () 1,000 mls @ 100 mls/hr IV .Q10H [facility] Last Admin: 09/11/18 04:25 Dose: 100 mls/hr Lactobacillus Acidophilus (Acidophilus) 1 tablet PO TID [facility] Last Admin: 09/11/18 14:53 Dose: Not Given Magnesium Hydroxide (Milk Of Magnesia) 30 ml PO DAILY PRN PRN PRN Reason: Constipation Metoprolol Tartrate (Lopressor (Beta Anika)) 25 mg PO BID [facility] Last Admin: 09/11/18 08:47 Dose: 25 mg Nitroglycerin (Nitrostat) 0.4 mg SUBLINGUAL Q5M PRN PRN Reason: CARDIAC/CHEST PAIN Nutritional Formula (Lactose Free) (Ensure Enlive) 120 ml PO 4X/DAY [facility] Last Admin: 09/11/18 14:48 Dose: 120 ml Ondansetron HCl (Zofran) 4 mg IV Q8H PRN PRN PRN Reason: NAUSEA/VOMITING Rifaximin (Xifaxan) 200 mg PO TID [facility] Last Admin: 09/11/18 14:47 Dose: 200 mg Sertraline HCl (Zoloft) 200 mg PO DAILY [facility] Last Admin: 09/11/18 08:46 Dose: 200 mg Sodium Chloride () 5 - 15 ml IV UD PRN PRN Reason: SALINE FLUSH Last Admin: 09/08/18 21:12 Dose: 10 ml Sodium Chloride () 10 - 20 ml IV UD PRN PRN Reason: PICC FLUSH Vancomycin HCl () 125 mg PO Q6 [facility] Last Admin: 09/11/18 11:54 Dose: 125 mg Medical Necessity - Tobacco Use Smoking Status: Never smoker Tobacco Use: Non-smoker Assessment/Plan All Active Problems (Last Reviewed 09/07/18 @ 10:12 by Shantel James PA-C) Hypotension (Acute) Abdominal pain (Acute) Dyspnea on exertion (Acute) Abnormal stress echo (Acute) This is a 68-year-old female with history of hypertension, dyslipidemia and SVT came to ER with dizziness, lightheadedness, generalized hives, hypotension consistent with anaphylactic shock which required transient IV vasopressin The patient had sudden onset with oropharyngeal and tongue swelling with dizziness, lightheadedness. This happened after almost 20 days of Cipro and Flagyl given for when she did not get better after 10 days course. On the last day of Cipro and Flagyl, patient had nausea, emesis and loose bowel movement along with generalized hives and swelling of lip for which she was started on prednisone and discontinuation of the antibiotics. Patient was admitted in ICU with hypotension, BP 49/32 which increased to 63/47; that necessitated start of vasopressor, vasopressin. The patient was initially admitted in ICU and then transferred to PCU on 09/06. 1. Hypovolemic shock, most probably secondary to hypovolemia from fluid loss and multiple antihypertensive medications: Resolved. Blood pressure is stable. No tachypnea or hypoxia. Although patient had allergic reaction with generalized hives on the upper extremity and trunk along with swelling of lips and buccal mucosa but it was not to the extent of anaphylactic shock. Anaphylactic shock ruled out 2. ESBL E. coli cystitis : UA is positive of nitrite, bacteria 3+, WBC RBCs 0. Urine culture shows ESBL E. coli. Initially started on Rocephin and then changed to meropenem. ID is being consulted. 3. C. difficile colitis: Stool for lactoferrin is positive, occult blood negative. C. difficile is positive. CT abdomen with oral contrast was done and images reviewed. Diffuse submucosal thickening of majority of, Most notably in sigmoid colon. Pericolonic inflammatory stranding and induration of mesenteric and retroperitoneal fat. Patient is on vancomycin 125 mg p.o. every 6 hourly. Repeat abdominal x-ray done on 09/11 and shows nonspecific gas. Official report is pending. Rifaximin and lactobacillus added. ID to further recovered. Discussed with the surgeon, Dr. Goodman and advised to continue vancomycin and when she gets better she can follow-up in office after 1 week of discharge to plan for definitive sigmoid colectomy and possible colostomy. (3) PSVT and hypertension: Blood pressure is normotensive. Currently heart rate is controlled. Cardizem CD 120 mg daily and metoprolol 25 mg twice daily. (4) Hyperlipidemia: Holding TriCor. (5) Chronic Kidney Disease Stage III: Admission BUN/Cr 20/1.29, baseline renal function 1.3. Repeat labs loosening BUN/creatinine 18/1.04 back on the baseline. (6) Hx SVT: No market findings on telemetry or EKG. Serial troponin enzymes are negative. On telemetry, normal sinus rhythm. (7) Anxiety and Depression: continue home regimen sertraline. (8) Recent Diverticulitis: Treated w/ 2 rounds abx therapy, as noted reaction to medication which was stopped pior to arrival and initial dose steroids late this past Tuesday. No abdominal pain, nausea/vomiting/abdominal tenderness. Tolerating diet now, stools improved. No clinical GI bleed. (9) DVT prophylaxis SCD, Lovenox. Discontinue if platelet count drops less than 50,000 or hemoglobin less than 8 g% Active Medications Acetaminophen (Tylenol) 650 mg PO Q6H PRN PRN PRN Reason: Non-cardiac pain (mod-severe) Last Admin: 09/08/18 05:22 Dose: 650 mg Hydrocodone Bitart/Acetaminophen ([place] 5mg-325mg) 1 - 2 tablet PO Q6H PRN PRN PRN Reason: MOD-SEVERE PAIN (4-10/10) Al Hydroxide/Mg Hydroxide (Mylanta Ii) 15 - 30 ml PO Q4H PRN PRN PRN Reason: INDIGESTION Last Admin: 09/06/18 19:08 Dose: 30 ml Albuterol Sulfate (Ventolin Aerosols) 2.5 mg INHALATION Q2H PRN PRN PRN Reason: dyspnea, wheezing Aspirin (Ecotrin) 81 mg PO DAILY@0800 [facility] Last Admin: 09/11/18 08:46 Dose: 81 mg Diltiazem HCl (Cardizem Cd) 120 mg PO DAILY [facility] Last Admin: 09/11/18 08:45 Dose: 120 mg Enoxaparin Sodium (Lovenox) 40 mg SC DAILY@1000 [facility] Last Admin: 09/11/18 08:45 Dose: 40 mg Famotidine (Pepcid) 20 mg PO BID [facility] Last Admin: 09/11/18 08:46 Dose: 20 mg Heparin Sodium (Beef Lung) () 50 units IV UD PRN PRN Reason: HEPARIN FLUSH Sodium Chloride () 250 mls @ 15 mls/hr IV .[id number] PRN PRN Reason: SALINE FLUSH Meropenem 500 mg/ Sodium (Chloride) 60 mls @ 100 mls/hr IV Q8 [facility] Last Admin: 09/11/18 14:48 Dose: 100 mls/hr Lactated Ringer's () 1,000 mls @ 100 mls/hr IV .Q10H [facility] Last Admin: 09/11/18 04:25 Dose: 100 mls/hr Lactobacillus Acidophilus (Acidophilus) 1 tablet PO TID [facility] Last Admin: 09/11/18 14:53 Dose: Not Given Magnesium Hydroxide (Milk Of Magnesia) 30 ml PO DAILY PRN PRN PRN Reason: Constipation Metoprolol Tartrate (Lopressor (Beta Anika)) 25 mg PO BID [facility] Last Admin: 09/11/18 08:47 Dose: 25 mg Nitroglycerin (Nitrostat) 0.4 mg SUBLINGUAL Q5M PRN PRN Reason: CARDIAC/CHEST PAIN Nutritional Formula (Lactose Free) (Ensure Enlive) 120 ml PO 4X/DAY [facility] Last Admin: 09/11/18 14:48 Dose: 120 ml Ondansetron HCl (Zofran) 4 mg IV Q8H PRN PRN PRN Reason: NAUSEA/VOMITING Rifaximin (Xifaxan) 200 mg PO TID [facility] Last Admin: 09/11/18 14:47 Dose: 200 mg Sertraline HCl (Zoloft) 200 mg PO DAILY [facility] Last Admin: 09/11/18 08:46 Dose: 200 mg Sodium Chloride () 5 - 15 ml IV UD PRN PRN Reason: SALINE FLUSH Last Admin: 09/08/18 21:12 Dose: 10 ml Sodium Chloride () 10 - 20 ml IV UD PRN PRN Reason: PICC FLUSH Vancomycin HCl () 125 mg PO Q6 [facility] Last Admin: 09/11/18 11:54 Dose: 125 mg Microbiology Past 72 Hours 09/05/18 Unknown Urine, Random Urine Culture - Final Presumptive E. coli 09/07/18 13:20 Stool C. difficile DNA Amplification - Final Toxigenic C. difficile DNA 09/07/18 13:20 Stool Stool Lactoferrin - Final 09/07/18 13:20 Stool Stool Occult Blood (KARMEN) - Final 09/05/18 14:38 Blood Culture (Wb) - Anticubital Left Blood Culture - Final No growth in 5 days. 09/05/18 14:30 Blood Culture (Wb) - Anticubital Right Blood Culture - Final No growth in 5 days. Laboratory Results 09/11/18 06:20: WBC 4.6, RBC 3.86 L, Hgb 11.3 L, Hct 34.0 L, MCV 88.1, MCH 29.3, MCHC 33.2, RDW 15.6 H, RDW Differential 50.0 H, Plt Count 184, MPV 10.0, Immature Gran % (Auto) 0.700, Neut % (Auto) 65.0, Lymph % (Auto) 21.5, [place] % (Auto) 6.8, Eos % (Auto) 5.3 H, Baso % (Auto) 0.7, Absolute Neuts (auto) 3.0, Absolute Lymphs (auto) 0.98, Total Counted Not Reportable 09/11/18 06:20: Sodium 143, Potassium 3.8, Chloride 113 H, Carbon Dioxide 25.0, Anion Gap 5, BUN 7, Creatinine 0.64, Estim Creat Clear Calc 45.20, Est GFR (MDRD) Af Amer 118, Est GFR (MDRD) Non-Af 98, BUN/Creatinine Ratio 11.0, Glucose 82, Calcium 8.1 L Code Visit Inpatient E&M: 26996 Subs Hosp L3
--- NOTE | 2018-09-11 15:39 | PN_ITS ---
Patient Problems: Active and Suspected Problems (Last Reviewed 09/07/18 @ 10:12 by Shantel James PA-C) Hypotension (Acute) Abdominal pain (Acute) Subjective: Patient is still having loose bowel movement. Bilateral lower quadrants abdominal pain. Does not feel improvement since start of p.o. vancomycin for C. difficile. Discussed with surgeon Dr. Goodman and ID Dr. Davison. Vitals/I&O's: Vital Signs Temp Pulse Resp BP Pulse Ox 98.3 F 85 18 114/74 93 09/11/18 11:57 09/11/18 12:02 09/11/18 11:57 09/11/18 11:57 09/11/18 11:57 Oxygen Flow Rate (L/min) 2 Oxygen Delivery Method Room Air Weight: 152 lb 8.958 oz Body Mass Index (BMI) 24.8 Intake and Output for Last 24 Hours 09/09/18 09/10/18 09/11/18 23:59 23:59 23:59 Intake Total 2573 / 2573 2590 / 2590 1599 / 1599 Output Total 400 / 400 200 / 200 Balance 2573 / 2573 2190 / 2190 1399 / 1399 General: Alert, Oriented x3, Cooperative HEENT: Atraumatic, PERRLA, EOMI, Normocephalic Neck: Supple, No JVD, Negative Carotid Bruits Lungs: Clear to auscultation, No rhonchi, No wheeze, No rales, Diminished Cardiovascular: Regular rate, Regular Rhythm, Normal S1, Normal S2, No murmurs Abdomen: Bowel Sounds Present, Soft, Hypoactive Bowel Sounds, Tender - In bilateral lower quadrants Extremities: No edema, Capillary Refill Less than 3 Seconds Skin: No rashes, No breakdown Musculoskeletal: No Tenderness to Palpation of Joints or Extremities, Arthritic Changes Neurological: Cranial nerves II-XII grossly intact Psych/Mental Status: Normal Affect, Appropriate Microbiology Past 72 Hours 09/05/18 14:38 Blood Culture (Wb) - Anticubital Left Blood Culture - Final No growth in 5 days. 09/05/18 14:30 Blood Culture (Wb) - Anticubital Right Blood Culture - Final No growth in 5 days. Laboratory Results 09/11/18 06:20: WBC 4.6, RBC 3.86 L, Hgb 11.3 L, Hct 34.0 L, MCV 88.1, MCH 29.3, MCHC 33.2, RDW 15.6 H, RDW Differential 50.0 H, Plt Count 184, MPV 10.0, Immature Gran % (Auto) 0.700, Neut % (Auto) 65.0, Lymph % (Auto) 21.5, [place] % (Auto) 6.8, Eos % (Auto) 5.3 H, Baso % (Auto) 0.7, Absolute Neuts (auto) 3.0, Absolute Lymphs (auto) 0.98, Total Counted Not Reportable 09/11/18 06:20: Sodium 143, Potassium 3.8, Chloride 113 H, Carbon Dioxide 25.0, Anion Gap 5, BUN 7, Creatinine 0.64, Estim Creat Clear Calc 45.20, Est GFR (MDRD) Af Amer 118, Est GFR (MDRD) Non-Af 98, BUN/Creatinine Ratio 11.0, Glucose 82, Calcium 8.1 L Current Medications Acetaminophen (Tylenol) 650 mg PO Q6H PRN PRN PRN Reason: Non-cardiac pain (mod-severe) Last Admin: 09/08/18 05:22 Dose: 650 mg Hydrocodone Bitart/Acetaminophen ([place] 5mg-325mg) 1 - 2 tablet PO Q6H PRN PRN PRN Reason: MOD-SEVERE PAIN (4-10/10) Al Hydroxide/Mg Hydroxide (Mylanta Ii) 15 - 30 ml PO Q4H PRN PRN PRN Reason: INDIGESTION Last Admin: 09/06/18 19:08 Dose: 30 ml Albuterol Sulfate (Ventolin Aerosols) 2.5 mg INHALATION Q2H PRN PRN PRN Reason: dyspnea, wheezing Aspirin (Ecotrin) 81 mg PO DAILY@0800 [facility] Last Admin: 09/11/18 08:46 Dose: 81 mg Diltiazem HCl (Cardizem Cd) 120 mg PO DAILY [facility] Last Admin: 09/11/18 08:45 Dose: 120 mg Enoxaparin Sodium (Lovenox) 40 mg SC DAILY@1000 [facility] Last Admin: 09/11/18 08:45 Dose: 40 mg Famotidine (Pepcid) 20 mg PO BID [facility] Last Admin: 09/11/18 08:46 Dose: 20 mg Heparin Sodium (Beef Lung) () 50 units IV UD PRN PRN Reason: HEPARIN FLUSH Sodium Chloride () 250 mls @ 15 mls/hr IV .[id number] PRN PRN Reason: SALINE FLUSH Meropenem 500 mg/ Sodium (Chloride) 60 mls @ 100 mls/hr IV Q8 [facility] Last Admin: 09/11/18 14:48 Dose: 100 mls/hr Lactated Ringer's () 1,000 mls @ 100 mls/hr IV .Q10H [facility] Last Admin: 09/11/18 04:25 Dose: 100 mls/hr Lactobacillus Acidophilus (Acidophilus) 1 tablet PO TID [facility] Last Admin: 09/11/18 14:53 Dose: Not Given Magnesium Hydroxide (Milk Of Magnesia) 30 ml PO DAILY PRN PRN PRN Reason: Constipation Metoprolol Tartrate (Lopressor (Beta Anika)) 25 mg PO BID [facility] Last Admin: 09/11/18 08:47 Dose: 25 mg Nitroglycerin (Nitrostat) 0.4 mg SUBLINGUAL Q5M PRN PRN Reason: CARDIAC/CHEST PAIN Nutritional Formula (Lactose Free) (Ensure Enlive) 120 ml PO 4X/DAY [facility] Last Admin: 09/11/18 14:48 Dose: 120 ml Ondansetron HCl (Zofran) 4 mg IV Q8H PRN PRN PRN Reason: NAUSEA/VOMITING Rifaximin (Xifaxan) 200 mg PO TID [facility] Last Admin: 09/11/18 14:47 Dose: 200 mg Sertraline HCl (Zoloft) 200 mg PO DAILY [facility] Last Admin: 09/11/18 08:46 Dose: 200 mg Sodium Chloride () 5 - 15 ml IV UD PRN PRN Reason: SALINE FLUSH Last Admin: 09/08/18 21:12 Dose: 10 ml Sodium Chloride () 10 - 20 ml IV UD PRN PRN Reason: PICC FLUSH Vancomycin HCl () 125 mg PO Q6 [facility] Last Admin: 09/11/18 11:54 Dose: 125 mg Medical Necessity - Tobacco Use Smoking Status: Never smoker Tobacco Use: Non-smoker Assessment/Plan All Active Problems (Last Reviewed 09/07/18 @ 10:12 by Shantel James PA-C) Hypotension (Acute) Abdominal pain (Acute) Dyspnea on exertion (Acute) Abnormal stress echo (Acute) This is a 68-year-old female with history of hypertension, dyslipidemia and SVT came to ER with dizziness, lightheadedness, generalized hives, hypotension consistent with anaphylactic shock which required transient IV vasopressin The patient had sudden onset with oropharyngeal and tongue swelling with dizziness, lightheadedness. This happened after almost 20 days of Cipro and Flagyl given for when she did not get better after 10 days course. On the last day of Cipro and Flagyl, patient had nausea, emesis and loose bowel movement along with generalized hives and swelling of lip for which she was started on prednisone and discontinuation of the antibiotics. Patient was admitted in ICU with hypotension, BP 49/32 which increased to 63/47; that ne cessitated start of vasopressor, vasopressin. The patient was initially admitted in ICU and then transferred to PCU on 09/06. 1. Hypovolemic shock, most probably secondary to hypovolemia from fluid loss and multiple antihypertensive medications: Resolved. Blood pressure is stable. No tachypnea or hypoxia. Although patient had allergic reaction with generalized hives on the upper extremity and trunk along with swelling of lips and buccal mucosa but it was not to the extent of anaphylactic shock. Anaphylactic shock ruled out 2. ESBL E. coli cystitis : UA is positive of nitrite, bacteria 3+, WBC RBCs 0. Urine culture shows ESBL E. coli. Initially started on Rocephin and then changed to meropenem. ID is being consulted. 3. C. difficile colitis: Stool for lactoferrin is positive, occult blood negative. C. difficile is positive. CT abdomen with oral contrast was done and images reviewed. Diffuse submucosal thickening of majority of, Most notably in sigmoid colon. Pericolonic inflammatory stranding and induration of mesenteric and retroperitoneal fat. Patient is on vancomycin 125 mg p.o. every 6 hourly. Repeat abdominal x-ray done on 09/11 and shows nonspecific gas. Official report is pending. Rifaximin and lactobacillus added. ID to further recovered. Discussed with the surgeon, Dr. Goodman and advised to continue vancomycin and when she gets better she can follow-up in office after 1 week of discharge to plan for definitive sigmoid colectomy and possible colostomy. (3) PSVT and hypertension: Blood pressure is normotensive. Currently heart rate is controlled. Cardizem CD 120 mg daily and metoprolol 25 mg twice daily. (4) Hyperlipidemia: Holding TriCor. (5) Chronic Kidney Disease Stage III: Admission BUN/Cr 20/1.29, baseline renal function 1.3. Repeat labs loosening BUN/creatinine 18/1.04 back on the baseline. (6) Hx SVT: No market findings on telemetry or EKG. Serial troponin enzymes are negative. On telemetry, normal sinus rhythm. (7) Anxiety and Depression: continue home regimen sertraline. (8) Recent Diverticulitis: Treated w/ 2 rounds abx therapy, as noted reaction to medication which was stopped pior to arrival and initial dose steroids late this past Tuesday. No abdominal pain, nausea/vomiting/abdominal tenderness. Tolerating diet now, stools improved. No clinical GI bleed. (9) DVT prophylaxis SCD, Lovenox. Discontinue if platelet count drops less than 50,000 or hemoglobin less than 8 g% Active Medications Acetaminophen (Tylenol) 650 mg PO Q6H PRN PRN PRN Reason: Non-cardiac pain (mod-severe) Last Admin: 09/08/18 05:22 Dose: 650 mg Hydrocodone Bitart/Acetaminophen ([place] 5mg-325mg) 1 - 2 tablet PO Q6H PRN PRN PRN Reason: MOD-SEVERE PAIN (4-10/10) Al Hydroxide/Mg Hydroxide (Mylanta Ii) 15 - 30 ml PO Q4H PRN PRN PRN Reason: INDIGESTION Last Admin: 09/06/18 19:08 Dose: 30 ml Albuterol Sulfate (Ventolin Aerosols) 2.5 mg INHALATION Q2H PRN PRN PRN Reason: dyspnea, wheezing Aspirin (Ecotrin) 81 mg PO DAILY@0800 [facility] Last Admin: 09/11/18 08:46 Dose: 81 mg Diltiazem HCl (Cardizem Cd) 120 mg PO DAILY [facility] Last Admin: 09/11/18 08:45 Dose: 120 mg Enoxaparin Sodium (Lovenox) 40 mg SC DAILY@1000 [facility] Last Admin: 09/11/18 08:45 Dose: 40 mg Famotidine (Pepcid) 20 mg PO BID [facility] Last Admin: 09/11/18 08:46 Dose: 20 mg Heparin Sodium (Beef Lung) () 50 units IV UD PRN PRN Reason: HEPARIN FLUSH Sodium Chloride () 250 mls @ 15 mls/hr IV .[id number] PRN PRN Reason: SALINE FLUSH Meropenem 500 mg/ Sodium (Chloride) 60 mls @ 100 mls/hr IV Q8 [facility] Last Admin: 09/11/18 14:48 Dose: 100 mls/hr Lactated Ringer's () 1,000 mls @ 100 mls/hr IV .Q10H [facility] Last Admin: 09/11/18 04:25 Dose: 100 mls/hr Lactobacillus Acidophilus (Acidophilus) 1 tablet PO TID [facility] Last Admin: 09/11/18 14:53 Dose: Not Given Magnesium Hydroxide (Milk Of Magnesia) 30 ml PO DAILY PRN PRN PRN Reason: Constipation Metoprolol Tartrate (Lopressor (Beta Anika)) 25 mg PO BID [facility] Last Admin: 09/11/18 08:47 Dose: 25 mg Nitroglycerin (Nitrostat) 0.4 mg SUBLINGUAL Q5M PRN PRN Reason: CARDIAC/CHEST PAIN Nutritional Formula (Lactose Free) (Ensure Enlive) 120 ml PO 4X/DAY [facility] Last Admin: 09/11/18 14:48 Dose: 120 ml Ondansetron HCl (Zofran) 4 mg IV Q8H PRN PRN PRN Reason: NAUSEA/VOMITING Rifaximin (Xifaxan) 200 mg PO TID [facility] Last Admin: 09/11/18 14:47 Dose: 200 mg Sertraline HCl (Zoloft) 200 mg PO DAILY [facility] Last Admin: 09/11/18 08:46 Dose: 200 mg Sodium Chloride () 5 - 15 ml IV UD PRN PRN Reason: SALINE FLUSH Last Admin: 09/08/18 21:12 Dose: 10 ml Sodium Chloride () 10 - 20 ml IV UD PRN PRN Reason: PICC FLUSH Vancomycin HCl () 125 mg PO Q6 [facility] Last Admin: 09/11/18 11:54 Dose: 125 mg Microbiology Past 72 Hours 09/05/18 Unknown Urine, Random Urine Culture - Final Presumptive E. coli 09/07/18 13:20 Stool C. difficile DNA Amplification - Final Toxigenic C. difficile DNA 09/07/18 13:20 Stool Stool Lactoferrin - Final 09/07/18 13:20 Stool Stool Occult Blood (KARMEN) - Final 09/05/18 14:38 Blood Culture (Wb) - Anticubital Left Blood Culture - Final No growth in 5 days. 09/05/18 14:30 Blood Culture (Wb) - Anticubital Right Blood Culture - Final No growth in 5 days. Laboratory Results 09/11/18 06:20: WBC 4.6, RBC 3.86 L, Hgb 11.3 L, Hct 34.0 L, MCV 88.1, MCH 29.3, MCHC 33.2, RDW 15.6 H, RDW Differential 50.0 H, Plt Count 184, MPV 10.0, Immature Gran % (Auto) 0.700, Neut % (Auto) 65.0, Lymph % (Auto) 21.5, [place] % (Auto) 6.8, Eos % (Auto) 5.3 H, Baso % (Auto) 0.7, Absolute Neuts (auto) 3.0, Absolute Lymphs (auto) 0.98, Total Counted Not Reportable 09/11/18 06:20: Sodium 143, Potassium 3.8, Chloride 113 H, Carbon Dioxide 25.0, Anion Gap 5, BUN 7, Creatinine 0.64, Estim Creat Clear Calc 45.20, Est GFR (MDRD) Af Amer 118, Est GFR (MDRD) Non-Af 98, BUN/Creatinine Ratio 11.0, Glucose 82, Calcium 8.1 L Code Visit Inpatient E&M: 38055 Subs Hosp L3
--- NOTE | 2018-09-11 16:52 | PCM.HP.ID ---
Reason for Consult: cdiff colitis Consulted by: Dr. Mills History of Present Illness: The patient is a 68 year old F dx with diverticulitis in ED here 08/04. Sent out on cipro/flagyl with surgery followup. After 10 day course, developed new lower cramping abd pain, diarrhea. Did not have diarrhea previously. Restarted on cipro/flagyl. Not much improvement in symptoms. No fever. Had angioedema on 09/02. Stopped abx, came back 09/05 with worsened sx. Dx with cdiff colitis, started on po vanc, ceftriaxone. Ceftriaxone change to meropenem once ucx showed 100k esbl ecoli. Denies any dysuria and no prior uti. Overall slow improvement in mucusy diarrhea, abd pain. Full ROS performed and ng except as noted above. - Medical History Past Medical History (Chronic Problems): Chronic Problems (Last Reviewed 09/07/18 @ 10:12 by Shantel James PA-C) Angioedema (Chronic) History of left heart catheterization (Chronic 04/13/18) Normal coronary arteries, EF 75% per [facility] Dr. Sotelo [facility] Hyperlipidemia (Chronic) Hypertension (Chronic) SVT (supraventricular tachycardia) (Chronic) Allergies/Adverse Reactions: Allergies bacitracin [From Neosporin ([id number])] Allergy (Verified 09/05/18 19:26) Rash bee venom protein (honey bee) Allergy (Verified 09/05/18 19:27) Anaphylaxis ciprofloxacin [From Cipro] Allergy (Verified 09/05/18 19:26) Swelling, hives metronidazole [From Flagyl] Allergy (Verified 09/05/18 19:26) Swelling, hives neomycin [From Neosporin ([id number])] Allergy (Verified 09/05/18 19:26) Rash polymyxin B [From Neosporin ([id number])] Allergy (Verified 09/05/18 19:26) Rash Home Medications: Ambulatory Orders Medication Instructions Recorded Fenofibrate [Tricor] 145 mg PO DAILY 04/23/16 Quinapril/Hydrochlorothiazide 1 tab PO DAILY 04/23/16 [Accuretic 20-12.5 MG Tablet] sertraline 100 mg tablet 200 mg PO DAILY tab 03/13/18 Aspirin [Aspir-Low] 81 mg PO DAILY 09/05/18 Diltiazem CD [Cardizem CD] 120 mg PO DAILY 09/05/18 Prednisone [Deltasone] 40 mg PO DAILY 09/05/18 - Social History Tobacco Use: non-smoker Vital Signs Temp Pulse Resp BP Pulse Ox 98.3 F 85 18 114/74 93 09/11/18 11:57 09/11/18 12:02 09/11/18 11:57 09/11/18 11:57 09/11/18 11:57 Oxygen Flow Rate (L/min) 2 Oxygen Delivery Method Room Air Weight: 69.2 kg Body Mass Index (BMI) 24.8 Microbiology Past 72 Hours 09/05/18 14:38 Blood Culture - Final Blood Culture (Wb) - Anticubital Left No growth in 5 days. 09/05/18 14:30 Blood Culture - Final Blood Culture (Wb) - Anticubital Right No growth in 5 days. Laboratory Tests Past 24 Hrs 09/11/18 09/11/18 06:20 06:20 WBC 4.6 RBC 3.86 L Hgb 11.3 L Hct 34.0 L MCV 88.1 MCH 29.3 MCHC 33.2 RDW 15.6 H RDW Differential 50.0 H Plt Count 184 MPV 10.0 Immature Gran % (Auto) 0.700 Neut % (Auto) 65.0 Lymph % (Auto) 21.5 [place] % (Auto) 6.8 Eos % (Auto) 5.3 H Baso % (Auto) 0.7 Absolute Neuts (auto) 3.0 Absolute Lymphs (auto) 0.98 Total Counted Not Reportable Sodium 143 Potassium 3.8 Chloride 113 H Carbon Dioxide 25.0 Anion Gap 5 BUN 7 Creatinine 0.64 Estim Creat Clear Calc 45.20 Est GFR (MDRD) Af Amer 118 Est GFR (MDRD) Non-Af 98 BUN/Creatinine Ratio 11.0 Glucose 82 Calcium 8.1 L - Other Studies Radiology: [] reviewed Other Studies: [] Route of nutrition/ use of supplements: [] Nutritional Intake: [] IV Site: [] Gonzales Catheter: [] - Physical Exam General: Alert, Oriented x3, Cooperative, No apparent distress HEENT: Atraumatic, PERRLA, EOMI Neck: Supple, No Nodes Lungs: Clear to auscultation, Normal air movement Cardiovascular: Regular rate, Regular Rhythm Abdomen: Soft, Non-Distended, Tender - mild lower abd Extremities: No edema Skin: No rashes IV Site: Peripheral, without redness Musculoskeletal: No Tenderness to Palpation of Joints or Extremities Neurological: Cranial nerves II-XII grossly intact - Assessment/Plan Antibiotics: [] Assessment/Plan: [] Active and Suspected Problems (Last Reviewed 09/07/18 @ 10:12 by Shantel James PA-C) Hypotension (Acute) Abdominal pain (Acute) cdiff colitis - UA with no pyuria, and no urinary sx on admit. Will stop meropenem as it may worsen her cdiff. No need to treat asymptomatic bacteruria. Cont po vanc. Plan on 10 day course with outpt surgery followup. Will follow, thank you.
--- NOTE | 2018-09-11 16:56 | CON.PCM_ITS ---
Reason for Consult: cdiff colitis Consulted by: Dr. Mills History of Present Illness: The patient is a 68 year old F dx with diverticulitis in ED here 08/04. Sent out on cipro/flagyl with surgery followup. After 10 day course, developed new lower cramping abd pain, diarrhea. Did not have diarrhea previously. Restarted on cipro/flagyl. Not much improvement in symptoms. No fever. Had angioedema on 09/02. Stopped abx, came back 09/05 with worsened sx. Dx with cdiff colitis, started on po vanc, ceftriaxone. Ceftriaxone change to meropenem once ucx showed 100k esbl ecoli. Denies any dysuria and no prior uti. Overall slow improvement in mucusy diarrhea, abd pain. Full ROS performed and ng except as noted above. - Medical History Past Medical History (Chronic Problems): Chronic Problems (Last Reviewed 09/07/18 @ 10:12 by Shantel James PA-C) Angioedema (Chronic) History of left heart catheterization (Chronic 04/13/18) Normal coronary arteries, EF 75% per [facility] Dr. Sotelo [facility] Hyperlipidemia (Chronic) Hypertension (Chronic) SVT (supraventricular tachycardia) (Chronic) Allergies/Adverse Reactions: Allergies bacitracin [From Neosporin ([id number])] Allergy (Verified 09/05/18 19:26) Rash bee venom protein (honey bee) Allergy (Verified 09/05/18 19:27) Anaphylaxis ciprofloxacin [From Cipro] Allergy (Verified 09/05/18 19:26) Swelling, hives metronidazole [From Flagyl] Allergy (Verified 09/05/18 19:26) Swelling, hives neomycin [From Neosporin ([id number])] Allergy (Verified 09/05/18 19:26) Rash polymyxin B [From Neosporin ([id number])] Allergy (Verified 09/05/18 19:26) Rash Home Medications: Ambulatory Orders Medication Instructions Recorded Fenofibrate [Tricor] 145 mg PO DAILY 04/23/16 Quinapril/Hydrochlorothiazide 1 tab PO DAILY 04/23/16 [Accuretic 20-12.5 MG Tablet] sertraline 100 mg tablet 200 mg PO DAILY tab 03/13/18 Aspirin [Aspir-Low] 81 mg PO DAILY 09/05/18 Diltiazem CD [Cardizem CD] 120 mg PO DAILY 09/05/18 Prednisone [Deltasone] 40 mg PO DAILY 09/05/18 - Social History Tobacco Use: non-smoker Vital Signs Temp Pulse Resp BP Pulse Ox 98.3 F 85 18 114/74 93 09/11/18 11:57 09/11/18 12:02 09/11/18 11:57 09/11/18 11:57 09/11/18 11:57 Oxygen Flow Rate (L/min) 2 Oxygen Delivery Method Room Air Weight: 69.2 kg Body Mass Index (BMI) 24.8 Microbiology Past 72 Hours 09/05/18 14:38 Blood Culture - Final Blood Culture (Wb) - Anticubital Left No growth in 5 days. 09/05/18 14:30 Blood Culture - Final Blood Culture (Wb) - Anticubital Right No growth in 5 days. Laboratory Tests Past 24 Hrs 09/11/18 09/11/18 06:20 06:20 WBC 4.6 RBC 3.86 L Hgb 11.3 L Hct 34.0 L MCV 88.1 MCH 29.3 MCHC 33.2 RDW 15.6 H RDW Differential 50.0 H Plt Count 184 MPV 10.0 Immature Gran % (Auto) 0.700 Neut % (Auto) 65.0 Lymph % (Auto) 21.5 [place] % (Auto) 6.8 Eos % (Auto) 5.3 H Baso % (Auto) 0.7 Absolute Neuts (auto) 3.0 Absolute Lymphs (auto) 0.98 Total Counted Not Reportable Sodium 143 Potassium 3.8 Chloride 113 H Carbon Dioxide 25.0 Anion Gap 5 BUN 7 Creatinine 0.64 Estim Creat Clear Calc 45.20 Est GFR (MDRD) Af Amer 118 Est GFR (MDRD) Non-Af 98 BUN/Creatinine Ratio 11.0 Glucose 82 Calcium 8.1 L - Other Studies Radiology: [] reviewed Other Studies: [] Route of nutrition/ use of supplements: [] Nutritional Intake: [] IV Site: [] Gonzales Catheter: [] - Physical Exam General: Alert, Oriented x3, Cooperative, No apparent distress HEENT: Atraumatic, PERRLA, EOMI Neck: Supple, No Nodes Lungs: Clear to auscultation, Normal air movement Cardiovascular: Regular rate, Regular Rhythm Abdomen: Soft, Non-Distended, Tender - mild lower abd Extremities: No edema Skin: No rashes IV Site: Peripheral, without redness Musculoskeletal: No Tenderness to Palpation of Joints or Extremities Neurological: Cranial nerves II-XII grossly intact - Assessment/Plan Antibiotics: [] Assessment/Plan: [] Active and Suspected Problems (Last Reviewed 09/07/18 @ 10:12 by Shantel James PA-C) Hypotension (Acute) Abdominal pain (Acute) cdiff colitis - UA with no pyuria, and no urinary sx on admit. Will stop meropenem as it may worsen her cdiff. No need to treat asymptomatic bacteruria. Cont po vanc. Plan on 10 day course with outpt surgery followup. Will follow, thank you.
[2018-09-12] VITALS (7 sets, daily range): BP systolic 102–123; BP diastolic 62–77; PULSE 69–103; RESP 16–18; TEMP 36.7–37.2; O2SAT 93–96
[2018-09-12] MEDS: Lactated Ringers 1,000 ML 100 ML IV (04:25)
[2018-09-12] MEDS: 0.9% NaCl Peripheral Flush Adult/Peds IV (04:28)
[2018-09-12] MEDS: Enoxaparin 40 MG/0.4 ML Syringe SC (09:32)
[2018-09-12] MEDS: Metoprolol Tartrate 25 MG Tablet PO (09:33)
[2018-09-12] MEDS: Famotidine 20 MG Tablet PO (09:33)
[2018-09-12] MEDS: Aspirin E.C. 81 MG Tablet PO (09:33)
[2018-09-12] MEDS: dilTIAZem CD 120 MG Capsule PO (09:33)
[2018-09-12] MEDS: Sertraline 100 MG Tablet 200 MG PO (09:33)
--- NOTE | 2018-09-12 10:42 | PN.ID_ITS ---
Patient Problems: Active and Suspected Problems (Last Reviewed 09/07/18 @ 10:12 by Shantel James PA-C) Hypotension (Acute) Abdominal pain (Acute) Subjective: Feeling a little better, interested in going home, still some diarrhea, pain improved, no fever - Physical Exam General: Alert, Cooperative, No apparent distress Lungs: Clear to auscultation, Normal air movement Cardiovascular: Regular rate, Regular Rhythm Abdomen: Soft, Non Tender, Non-Distended Skin: No rashes Vital Signs Temp Pulse Resp BP Pulse Ox 98.1 F 72 16 123/77 H 96 09/12/18 09:29 09/12/18 09:33 09/12/18 09:29 09/12/18 09:33 09/12/18 09:29 Oxygen Flow Rate (L/min) 2 Oxygen Delivery Method Room Air Weight: 67.8 kg Body Mass Index (BMI) 24.8 Intake and Output for Last 24 Hours 09/10/18 09/11/18 09/12/18 23:59 23:59 23:59 Intake Total 2590 / 2590 2975 / 2975 677 / 677 Output Total 400 / 400 600 / 600 Balance 2190 / 2190 2375 / 2375 677 / 677 Microbiology Past 72 Hours 09/05/18 14:38 Blood Culture - Final Blood Culture (Wb) - Anticubital Left No growth in 5 days. 09/05/18 14:30 Blood Culture - Final Blood Culture (Wb) - Anticubital Right No growth in 5 days. Medical Necessity - Tobacco Use Smoking Status: Never smoker Tobacco Use: Non-smoker Route of nutrition/ use of supplements: [] Nutritional Intake: [] IV Site: [] Gonzales Catheter: [] - Assessment/Plan Antibiotics: [] Assessment/Plan: [] Active and Suspected Problems (Last Reviewed 09/07/18 @ 10:12 by Shantel James PA-C) Hypotension (Acute) Abdominal pain (Acute) cdiff colitis - UA with no pyuria, and no urinary sx on admit. Stopped merope nem 09/11. No need to treat asymptomatic bacteruria. Cont po vanc. Plan on 10 day course with outpt surgery followup. Will follow
--- NOTE | 2018-09-12 11:10 | PCM.DC ---
- Discharge Diagnoses Current Active Problems: Current Active and Chronic Problems (Last Reviewed 09/07/18 @ 10:12 by Shantel James PA-C) Hypotension (Acute) Angioedema (Chronic) Abdominal pain (Acute) You will use the following diet at home:: Regular, Cardiac - soft meshed food for 3 days and advance to solid diet Your food should be the consistency of: Regular Discharge Activity: May Not Drive Call your doctor if you observe: Fever of 101 or Higher, Inability to urinate, Inability to have a bowel movement, Shortness of breath, Swelling in the ankles, Increased palpitations (irregular heartbeat), Uncontrolled pain Allergies/Adverse Reactions: Allergies bacitracin [From Neosporin (grx-vkq-buicx)] Allergy (Verified 09/05/18 19:26) Rash bee venom protein (honey bee) Allergy (Verified 09/05/18 19:27) Anaphylaxis ciprofloxacin [From Cipro] Allergy (Verified 09/05/18 19:26) Swelling, hives metronidazole [From Flagyl] Allergy (Verified 09/05/18 19:26) Swelling, hives neomycin [From Neosporin (ihv-szy-fezqf)] Allergy (Verified 09/05/18 19:26) Rash polymyxin B [From Neosporin (ost-sjz-soxgq)] Allergy (Verified 09/05/18 19:26) Rash Medications to take at Discharge Fenofibrate [Tricor] 145 mg PO DAILY 04/23/16 sertraline 100 mg tablet 200 mg PO DAILY tab 03/13/18 Aspirin [Aspir-Low] 81 mg PO DAILY 09/05/18 Diltiazem CD [Cardizem CD] 120 mg PO DAILY 09/05/18 Lactobacillus Acidophilus [Acidophilus] 1 tablet PO TID tablet 09/12/18 Metoprolol Tartrate [Lopressor (beta alejandra)] 12.5 mg PO BID #30 tablet 09/12/18 Quinapril/Hydrochlorothiazide [Accuretic 20-12.5 MG Tablet] 1 tab PO DAILY #0 09/12/18 Vancomcyin 125mg/5mL PO Liquid 125 mg PO Q6 #40 po.syringe 09/12/18 The following prescriptions were given: Vancomcyin 125mg/5mL PO Liquid 125 mg PO Q6 #40 po.syringe Metoprolol Tartrate [Lopressor (beta alejandra)] 12.5 mg PO BID #30 tablet Primary Care Physician: Care Physician,No Primary [Primary Care Provider] - Please follow up with your Primary Care Physician in: in 2 week Test Results: Test results from this visit will be discussed in further detail at your follow-up appointment, if applicable. Please Follow Up With: Willy Davison MD When: in 1-2 week Please Follow Up With: Zane Goodman MD When: in 2-3 weeks after seen by Dr. Davison
--- NOTE | 2018-09-12 11:13 | DCINST_ITS ---
- Discharge Diagnoses Current Active Problems: Current Active and Chronic Problems (Last Reviewed 09/07/18 @ 10:12 by Shantel James PA-C) Hypotension (Acute) Angioedema (Chronic) Abdominal pain (Acute) You will use the following diet at home:: Regular, Cardiac - soft meshed food for 3 days and advance to solid diet Your food should be the consistency of: Regular Discharge Activity: May Not Drive Call your doctor if you observe: Fever of 101 or Higher, Inability to urinate, Inability to have a bowel movement, Shortness of breath, Swelling in the ankles, Increased palpitations (irregular heartbeat), Uncontrolled pain Allergies/Adverse Reactions: Allergies bacitracin [From Neosporin (pyc-keg-wltvm)] Allergy (Verified 09/05/18 19:26) Rash bee venom protein (honey bee) Allergy (Verified 09/05/18 19:27) Anaphylaxis ciprofloxacin [From Cipro] Allergy (Verified 09/05/18 19:26) Swelling, hives metronidazole [From Flagyl] Allergy (Verified 09/05/18 19:26) Swelling, hives neomycin [From Neosporin (mvx-ifq-xvtzg)] Allergy (Verified 09/05/18 19:26) Rash polymyxin B [From Neosporin (dxw-uxo-smozf)] Allergy (Verified 09/05/18 19:26) Rash Medications to take at Discharge Fenofibrate [Tricor] 145 mg PO DAILY 04/23/16 sertraline 100 mg tablet 200 mg PO DAILY tab 03/13/18 Aspirin [Aspir-Low] 81 mg PO DAILY 09/05/18 Diltiazem CD [Cardizem CD] 120 mg PO DAILY 09/05/18 Lactobacillus Acidophilus [Acidophilus] 1 tablet PO TID tablet 09/12/18 Metoprolol Tartrate [Lopressor (beta alejandra)] 12.5 mg PO BID #30 tablet 09/12/18 Quinapril/Hydrochlorothiazide [Accuretic 20-12.5 MG Tablet] 1 tab PO DAILY #0 09/12/18 Vancomcyin 125mg/5mL PO Liquid 125 mg PO Q6 #40 po.syringe 09/12/18 The following prescriptions were given: Vancomcyin 125mg/5mL PO Liquid 125 mg PO Q6 #40 po.syringe Metoprolol Tartrate [Lopressor (beta alejandra)] 12.5 mg PO BID #30 tablet Primary Care Physician: Care Physician,No Primary [Primary Care Provider] - Please follow up with your Primary Care Physician in: in 2 week Test Results: Test results from this visit will be discussed in further detail at your follow- up appointment, if applicable. Please Follow Up With: Willy Davison MD When: in 1-2 week Please Follow Up With: Zane Goodman MD When: in 2-3 weeks after seen by Dr. Davison
--- NOTE | 2018-09-12 11:13 | PCM.DC.SUM ---
Discharge Date and Diagnosis Date of Admission: 09/05/18 Date of Discharge: 09/12/18 - Primary Discharge Diagnosis Active and Suspected Problems (Last Reviewed 09/07/18 @ 10:12 by Shantel James PA-C) Hypotension (Acute) Abdominal pain (Acute) - Secondary Discharge Diagnosis Chronic Problems (Last Reviewed 09/07/18 @ 10:12 by Shantel James PA-C) Angioedema (Chronic) History of left heart catheterization (Chronic 04/13/18) Normal coronary arteries, EF 75% per [facility] Dr. Sotelo [facility] Hyperlipidemia (Chronic) Hypertension (Chronic) SVT (supraventricular tachycardia) (Chronic) Hospital Course and Treatment Operations: None Summary of Care Provided: [] This is a 68-year-old female with history of hypertension, dyslipidemia and SVT came to ER with dizziness, lightheadedness, generalized hives, hypotension consistent with anaphylactic shock which required transient IV vasopressin The patient had sudden onset with oropharyngeal and tongue swelling with dizziness, lightheadedness. This happened after almost 20 days of Cipro and Flagyl given for when she did not get better after 10 days course. On the last day of Cipro and Flagyl, patient had nausea, emesis and loose bowel movement along with generalized hives and swelling of lip for which she was started on prednisone and discontinuation of the antibiotics. Patient was admitted in ICU with hypotension, BP 49/32 which increased to 63/47; that necessitated start of vasopressor, vasopressin. The patient was initially admitted in ICU and then transferred to PCU on 09/06. 1. Hypovolemic shock, most probably secondary to hypovolemia from fluid loss and multiple antihypertensive medications: Resolved. Blood pressure is stable. No tachypnea or hypoxia. Although patient had allergic reaction with generalized hives on the upper extremity and trunk along with swelling of lips and buccal mucosa but it was not to the extent of anaphylactic shock. Anaphylactic shock ruled out 2. Asymptomatic bacteriuria with ESBL E. coli. UTI ruled out.: UA is positive of nitrite, bacteria 3+, WBC RBCs 0. Urine culture shows ESBL E. coli. Initially started on Rocephin and then changed to meropenem. Patient denies lower urinary tract symptoms including increased frequency, urgency and burning micturition. Patient seen by ID and it is recommended that is asymptomatic bacteriuria and meropenem was discontinued on 09/11. 3. C. difficile colitis: Stool for lactoferrin is positive, occult blood negative. C. difficile is positive. CT abdomen with oral contrast was done and images reviewed. Diffuse submucosal thickening of majority of, Most notably in sigmoid colon. Pericolonic inflammatory stranding and induration of mesenteric and retroperitoneal fat. Patient is on vancomycin 125 mg p.o. every 6 hourly. Repeat abdominal x-ray done on 09/11 and shows nonspecific gas. Official report is pending. Rifaximin and lactobacillus added. Patient was seen by ID and recommended to continue vancomycin and more days. A prescription for vancomycin capsule was given. Patient to follow-up with ID in 1 to 2 weeks and then follow-up with surgeon Maxine in 2 weeks to plan for definitive sigmoid colectomy and possible colostomy. (3) PSVT and hypertension: Blood pressure is normotensive. Currently heart rate is controlled. Cardizem CD 120 mg daily and metoprolol 25 mg twice daily. (4) Hyperlipidemia: Holding TriCor. (5) Chronic Kidney Disease Stage III: Admission BUN/Cr 20/1.29, baseline renal function 1.3. Repeat labs loosening BUN/creatinine 18/1.04 back on the baseline. (6) Hx SVT: No market findings on telemetry or EKG. Serial troponin enzymes are negative. On telemetry, normal sinus rhythm. (7) Anxiety and Depression: continue home regimen sertraline. (8) Recent Diverticulitis: Treated w/ 2 rounds abx therapy, as noted reaction to medication which was stopped pior to arrival and initial dose steroids late this past Tuesday. No abdominal pain, nausea/vomiting/abdominal tenderness. Tolerating diet now, stools improved. No clinical GI bleed. (9) DVT prophylaxis SCD, Lovenox. Discontinue if platelet count drops less than 50,000 or hemoglobin less than 8 g% Discharge medication reconciliation done. Discharge follow-up instructions completed. Discharge process discussed with the patient and all questions were answered to patient's satisfaction. Patient is to follow-up with ID and surgeon Dr. Goodman. Patient also follows Dr. Sotelo for PSVT. Total time spent, exact 35 minutes on discharge meds reconciliation, examination, review of imaging and blood test and discussion with the patient on follow-up instructions. Subjective: Seen and examined. Patient has improvement in the consistency of stool, more thicker and less frequent. 2 times since morning today. Yesterday she had about 4 and was more liquid. Abdominal pain is much better and is almost resolved. Patient is sitting in the chair. No fever chills. Hemodynamically stable's. ID and surgery follow-up appreciated. - Physical Exam General: Alert, Oriented x3, Cooperative HEENT: Atraumatic, PERRLA, EOMI, Normocephalic Neck: Supple, No JVD, Negative Carotid Bruits Lungs: Clear to auscultation, Normal air movement, No rhonchi, No wheeze, No rales Cardiovascular: Regular rate, Regular Rhythm, Normal S1, Normal S2, No murmurs Abdomen: Bowel Sounds Present, Soft, Non-Distended - No Guarding/rigidity., Tender - Mild deep tenderness present. Extremities: No edema, Capillary Refill Less than 3 Seconds Skin: No rashes, No breakdown Musculoskeletal: No Tenderness to Palpation of Joints or Extremities, Arthritic Changes Neurological: Cranial nerves II-XII grossly intact, Deep Tendon Reflexes 2+/4 and Symmetrical Psych/Mental Status: Normal Affect, Appropriate Vital Signs Temp Pulse Resp BP Pulse Ox 98.1 F 72 16 123/77 H 96 09/12/18 09:29 09/12/18 09:33 09/12/18 09:29 09/12/18 09:33 09/12/18 09:29 Oxygen Flow Rate (L/min) 2 Oxygen Delivery Method Room Air Weight: 149 lb 7.574 oz Body Mass Index (BMI) 24.8 Intake and Output for Last 24 Hours 09/10/18 09/11/18 09/12/18 23:59 23:59 23:59 Intake Total 2590 / 2590 2975 / 2975 677 / 677 Output Total 400 / 400 600 / 600 Balance 2190 / 2190 2375 / 2375 677 / 677 Microbiology Past 72 Hours 09/05/18 14:38 Blood Culture - Final Blood Culture (Wb) - Anticubital Left No growth in 5 days. 09/05/18 14:30 Blood Culture - Final Blood Culture (Wb) - Anticubital Right No growth in 5 days. Discharge Activity: May Not Drive Call your doctor if you observe: Fever of 101 or Higher, Inability to urinate, Inability to have a bowel movement, Shortness of breath, Swelling in the ankles, Increased palpitations (irregular heartbeat), Uncontrolled pain Home Medications: Medications to take at Discharge Fenofibrate [Tricor] 145 mg PO DAILY 04/23/16 sertraline 100 mg tablet 200 mg PO DAILY tab 03/13/18 Aspirin [Aspir-Low] 81 mg PO DAILY 09/05/18 Diltiazem CD [Cardizem CD] 120 mg PO DAILY 09/05/18 Lactobacillus Acidophilus [Acidophilus] 1 tablet PO TID tablet 09/12/18 Metoprolol Tartrate [Lopressor (beta alejandra)] 12.5 mg PO BID #30 tablet 09/12/18 Quinapril/Hydrochlorothiazide [Accuretic 20-12.5 MG Tablet] 1 tab PO DAILY #0 09/12/18 Vancomycin [Vancocin] 125 mg PO Q6H #40 capsule 09/12/18 Following Prescrptions Were Given to Patient: Metoprolol Tartrate [Lopressor (beta alejandra)] 12.5 mg PO BID #30 tablet Vancomycin [Vancocin] 125 mg PO Q6H #40 capsule Primary Care Physician: Care Physician,No Primary [Primary Care Provider] - Please follow up with your Primary Care Physician in: in 2 week Please Follow Up With: Willy Davison MD When: in 1-2 week Please Follow Up With: Zane Goodman MD When: in 2-3 weeks after seen by Dr. Davison Medical Necessity - Tobacco Use Smoking Status: Never smoker Tobacco Use: Non-smoker Meaningful Use Info Meaningful Use Diagnoses (Choose all that apply): None applicable Code Visit Inpatient E&M: 46060 Disch Hosp
--- NOTE | 2018-09-12 13:12 | PCM.PN.SRG ---
Patient Problems: Active and Suspected Problems (Last Reviewed 09/07/18 @ 10:12 by Shantel James PA-C) Hypotension (Acute) Abdominal pain (Acute) Subjective: Patient evaluated this morning resting comfortably in bed. Patient notes abdominal discomfort is much improved. She is tolerating full liquid diet. - Physical Exam General: Alert, Oriented x3, Cooperative Abdomen: Bowel Sounds Present, Soft, Guarding - very minimal amount, Tender - lower abdomen Vital Signs Temp Pulse Resp BP Pulse Ox 98.1 F 69 16 123/77 H 96 09/12/18 09:29 09/12/18 12:02 09/12/18 09:29 09/12/18 09:33 09/12/18 09:29 Oxygen Flow Rate (L/min) 2 Oxygen Delivery Method Room Air Weight: 149 lb 7.574 oz Body Mass Index (BMI) 24.8 Intake and Output for Last 24 Hours 09/10/18 09/11/18 09/12/18 23:59 23:59 23:59 Intake Total 2590 / 2590 2975 / 2975 1136 / 1136 Output Total 400 / 400 600 / 600 Balance 2190 / 2190 2375 / 2375 1136 / 1136 Microbiology Past 72 Hours 09/05/18 14:38 Blood Culture - Final Blood Culture (Wb) - Anticubital Left No growth in 5 days. 09/05/18 14:30 Blood Culture - Final Blood Culture (Wb) - Anticubital Right No growth in 5 days. Medical Necessity - Tobacco Use Smoking Status: Never smoker Tobacco Use: Non-smoker Assessment/Plan All Active Problems (Last Reviewed 09/07/18 @ 10:12 by Shantel James PA-C) Hypotension (Acute) Abdominal pain (Acute) Dyspnea on exertion (Acute) Abnormal stress echo (Acute) I have been consulted in conjunction with Dr. Goodman. C Diff colitis okay for discharge follow-up in [address] Goodman Continue antibiotics as an outpatient Code Visit Inpatient E&M: 10639 Subs Hosp L1
--- NOTE | 2018-09-12 14:03 | CASEMGMT ---
This FRANNY CRANE received call from [facility] pharmacy stating that prior auth is needed for vancomycin 125mg/5ml po liquid at this time. Call to [facility] and the prior auth rep cannot help this RN CM attain prior auth at this time d/t liquid not being on formulary. Per [facility] formulary, the vancomycin 125mg capsules are on the formulary. Per Elizabeth in [facility] retail pharmacy, they do have the capsules in stock and Dr. Mills aware to send new script at this time. Per Elizabeth, the co-pay for the for the capsules is $15.00 and Nikki BLANTON aware at this time and per Elizabeth, they will be calling pt for payment/delivery. Марина BLANTON CM
--- NOTE | 2018-09-13 14:38 | CASEMGMT ---
FRANNY CRANE Discharge F/U Phone Call LACE: 10 Strata: 3 Discharge date: 09/12/18 Call date: 09/13/18 Call time: [id number] Duration: 2 minutes Admission dx: Hypotensive Pt states has been doing 'ok' since discharge yesterday. Pt states no questions regarding discharge instructions or medications at this time. Pt states that she is awaiting call from Dr. Davison's office for an appt time and then she can schedule surgeon f/u as well. Pt states no suggestions for WC at this time and states 'Everything was wonderful and everyone was really good.' Pt voices no further questions/concerns/needs at this time. S[place]en FRANNY CRANE
== END 2018-09-12 15:28 | disposition home or self-care (01) | DRG 872 ==
LOC: ED 18:05 → ICU 18:43 → PCU 09-06 11:47
PROVIDERS: Internal Medicine Critical Care Medicine; Student in an Organized Health Care Education/Training Program; Surgery; Admitting Provider Family Medicine; Emergency Provider Emergency Medicine; Referring Provider Family Medicine; Visit Provider Internal Medicine
DX: R57.1 Hypovolemic shock (principal); A04.72 Enterocolitis due to Clostridium difficile, not specified as recurrent; E78.5 Hyperlipidemia, unspecified; R82.71 Bacteriuria; I12.9 Hypertensive chronic kidney disease with stage 1 through stage 4 chronic kidney disease, or unspecified chronic kidney disease; N18.3 Chronic kidney disease, stage 3 (moderate); F32.9 Major depressive disorder, single episode, unspecified; F41.9 Anxiety disorder, unspecified; E87.6 Hypokalemia; T78.40XA Allergy, unspecified, initial encounter
CPT/HCPCS: 36415; 71045; 71275; 74019; 74176; 80048; 80053; 81001; 82274; 82533; 83605; 83630; 83735; 84100; 84484; 85025; 85379; 85610; 85730; 87040; 87086; 87088; 87186; 87493; 93005; 96374; 96375; 97802; 99283; 99285; J2185; J7030; J7040; J7120; Q9967; A4216

== ENCOUNTER → 2018-09-27 10:25 | Outpatient (CLI) | payer MEDICARE, SELFPAY ==
[2018-09-26 09:37] VITALS: BMI 24.8
== END ==
PROVIDERS: Visit Provider Surgery
DX: R19.7 Diarrhea, unspecified (principal); Z86.19 Personal history of other infectious and parasitic diseases
CPT/HCPCS: 87493

== ENCOUNTER 2018-11-01 09:22 | Day surgery (SDC) | payer MEDICARE, SELFPAY ==
[2018-09-26 09:37] VITALS: BMI 24.8
[2018-11-01] VITALS (9 sets, daily range): BP systolic 85–108; BP diastolic 53–87; PULSE 77–96; RESP 16; TEMP 36.4–37.1; O2SAT 93–100; BMI 22.0
--- NOTE | 2018-11-01 10:24 | PCM.HP.BLA ---
History and Physical Date of Admission: 11/01/18 [facility] [address] [place] [id number] MR#: [id number] Acct: [id number] Name: HALLIE DUMONT Rep #: [id number] : [id number] Provider: Zane Goodman MD Age/Sex: 68/F Location: [facility] Status: Signed Intake Vital Signs 09/26/18 Body Mass Index (BMI) 24.8 Intake Visit Reasons: WC 2WK F/U 09/12 Diverticulitis Chief Complaint: Hypotensive Operating Room Orderly Required: No Is patient in pain?: No Allergies bacitracin [From Neosporin (oxa-gvt-uruar)] Allergy (Verified 09/26/18 09:37) Rash bee venom protein (honey bee) Allergy (Verified 09/26/18 09:37) Anaphylaxis ciprofloxacin [From Cipro] Allergy (Verified 09/26/18 09:37) Swelling, hives metronidazole [From Flagyl] Allergy (Verified 09/26/18 09:37) Swelling, hives neomycin [From Neosporin (lph-ghx-tpowi)] Allergy (Verified 09/26/18 09:37) Rash polymyxin B [From Neosporin (osw-his-peukk)] Allergy (Verified 09/26/18 09:37) Rash Medications Fenofibrate [Tricor] 145 mg PO DAILY 04/23/16 [History Confirmed 09/26/18] sertraline 100 mg tablet 200 mg PO DAILY tab 03/13/18 [History Confirmed 09/26/18] Aspirin [Aspir-Low] 81 mg PO DAILY 09/05/18 [History Confirmed 09/26/18] Diltiazem CD [Cardizem CD] 120 mg PO DAILY 09/05/18 [History Confirmed 09/26/18] Lactobacillus Acidophilus [Acidophilus] 1 tab PO TID tab 09/12/18 [Rx Confirmed 09/26/18] Metoprolol Tartrate [Lopressor (beta alejandra)] 12.5 mg PO BID #30 tab 09/12/18 [Rx Confirmed 09/26/18] Quinapril/Hydrochlorothiazide [Accuretic 20-12.5 MG Tablet] 1 tab PO DAILY #0 09/12/18 [Rx Confirmed 09/26/18] Vancomycin [Vancocin] 125 mg PO Q6H #40 cap 09/12/18 [Rx Confirmed 09/26/18] PFSH Medical History Hypotension (Acute) Angioedema (Chronic) Abdominal pain (Acute) Dyspnea on exertion (Acute) Abnormal stress echo (Acute) Hyperlipidemia (Chronic) Hypertension (Chronic) SVT (supraventricular tachycardia) (Chronic) Anxiety and depression (Chronic) Diverticulitis (Chronic) Surgical History History of left heart catheterization (Chronic 04/13/18) H/O sinus surgery (Resolved) H/O tubal ligation (Resolved) History of bunionectomy of left great toe (Resolved) History of carpal tunnel release (Resolved) History of cataract surgery (Resolved) Family History Mother CVA (cerebral vascular accident) Myocardial infarction age 58 Brother CAD (coronary artery disease) CABG Father CAD (coronary artery disease) Social History Smoking Status: Never smoker HPI HPI HPI: HALLIE DUMONT, is a 68 F who presents to the office today for HPI HPI HPI: HALLIE DUMONT, is a 68 F who presents to the office today for follow-up from a hospitalization in late August. Patient was noted to have C. difficile colitis was started on antibiotics. In addition she was also still having an active flare of her sigmoid diverticulitis. She has been subsequently sent home on oral antibiotics to treat the C. difficile. Her stools are starting to form up. ROS General General: Yes fatigue; no weight change, appetite, colon cancer, breast cancer or weakness HEENT HEENT: No difficulty swallowing, eye injury, eye surgery, swollen glands or hoarseness Endo Endocrine: No thyroid disease, diabetes mellitus, thyroid cancer, Hair loss, heat intolerance or cold intolerance Skin Skin: No rash or changing moles Breast Breast: No left breast lump, right breast lump, nipple discharge, breast pain, abnormal mammogram, abnormal US or breast enlargement Musc Musculoskeletal: No back problems, arthritis, rheumatoid arthritis, gout or joint pain Cardio Cardiovascular: Yes heart disease and high blood pressure; no murmur, pacemaker, atrial fibrillation, heart attack, heart stent, palpitations, shortness of breat with exertion or chest pain Psych Psychiatric: Yes depression; no anxiety or hearing voices Resp Respiratory: No shortness of breath, No sleep apnea, Yes cough, No COPD, No asthma, No emphysema, No wheezing Gastro Gastrointestinal: Yes abdominal pain, No nausea or vomiting, Yes diarrhea, No constipation, No blood in stool, No acid reflux, No hemorrhoids, No ulcers, No gallbladder problem, No black,tarry stools [place] Hematologic: No blood thinners, No blood disorders, No bleeding, No anemia, No blood clots Neuro Neurologic: No weakness Exam Chest Breast Palpation: No nipple discharge Cardio Heart Sounds: no murmurs GI Other: Abdomen is soft there are no rebound guarding or peritoneal signs identified Assessment & Plan Problems 1. Sigmoid diverticulitis K57.32 2. C. difficile colitis A04.72 Plan Going to be obtaining a consultation at [facility] for her to undergo a elective sigmoid resection. I think it is very difficult to ascertain how the her current C. difficile status is going to play with regards to whether or not she gets a colostomy or not. Orders Orders: CDIFF (Molecular) 09/27/18 R19.7, Z86.19 Shantel James PA-C Referrals: Colon & Rectal Surgery K57.32, Z86.19 Zane Goodman MD Coding Level of Care Code Off vis,est,level 2 Diagnoses Sigmoid diverticulitis K57.32 C. difficile colitis A04.72 10/11/18 0903 <Electronically signed by Zane Goodman MD> Date Zane Goodman MD Cosigner Signature: Date (if applicable) CC: Emily Perry MD ~ I have re-examined the patient. There are no clinical changes since date of exam.
--- NOTE | 2018-11-01 10:59 | OP.ENDO_ITS ---
11/01/2018 Emily Perry [place] [id number] [place] [address] Re : Colonoscopy procedure for Yaa Mcintyre Dear Dr. Perry This procedure was performed on Thursday, November 01, 2018. My impressions and recommendations are as follows: Impressions : - The procedure was aborted due to restricted mobility of the colon. - Tortuous colon. - No specimens collected. Recommendations : - Discharge patient to home. - Clear liquid diet. - Continue present medications. - Repeat colonoscopy. - Return to referring physician (date not yet determined). My findings are described in the full procedure note, which is enclosed. If I can be of further assistance, please feel free to contact me at Doctor phone number(s): , Fax: [phone], Work: . Sincerely, MD Zane Diamond MD 11/01/2018 10:59:34 AM This report has been signed electronically.
== END 2018-11-01 11:52 | disposition home or self-care (01) ==
LOC: EN 09:22 → AC 09:24
PROVIDERS: Family Provider Family Medicine; PCP Family Medicine; Referring Provider Family Medicine; Visit Provider Surgery
PROC: 0DJD8ZZ Inspection of Lower Intestinal Tract, Via Natural or Artificial Opening Endoscopic (ICD-10-PCS; CPT 45378; principal; 2018-11-01 10:25)
DX: A04.71 Enterocolitis due to Clostridium difficile, recurrent (principal); K57.32 Diverticulitis of large intestine without perforation or abscess without bleeding; Q43.8 Other specified congenital malformations of intestine; Z53.8 Procedure and treatment not carried out for other reasons; I47.1 Supraventricular tachycardia; I10 Essential (primary) hypertension; E78.00 Pure hypercholesterolemia, unspecified; F32.9 Major depressive disorder, single episode, unspecified; F41.9 Anxiety disorder, unspecified; Z79.82 Long term (current) use of aspirin; Z79.899 Other long term (current) drug therapy
CPT/HCPCS: 45378; J7120

== ENCOUNTER → 2019-12-11 09:54 | Outpatient (CLI) | payer MEDICARE, SELFPAY ==
[2018-11-01 09:37] VITALS: BMI 22.0
[2019-12-11 10:31] LABS: Absolute Lymphocyte Count 1.39 X10^3/uL (0.83-4.51); Absolute Neutrophil Count 2.6 X10^3/uL (2.0-7.7); Basophil# 0.08 X10^3/uL; Basophil% 1.8 % (0-1); Eosinophil# 0.12 X10^3/uL; Eosinophils% 2.7 % (0-5); Hematocrit 48.2 % (37-47); Hemoglobin 15.8 g/dL (12.0-15.0); Lymphocyte # 1.39 X10^3/ul (4.0); Mean Corp Hgb Conc 32.8 g/dL (32-36); Mean Corpuscular Hgb 30.7 pg (27.0-32.0); Mean Corpuscular Volume 93.8 fL (81-99); Mean Platelet Vol. 10.2 fl (6.2-12.0); Monocyte# 0.32 X10^3/uL; Monocyte% 7.1 % (0-10); NRBC Flagged by Analyzer 0 % (0-5); Neutrophil # 2.57 X10^3/uL (2.7-7.7); Neutrophil % 57.4 % (47-70); Platelet Count 256 K/mm3 (150-450); RBC Distribution Width CV 13.4 % (11.6-14.6); RBC Distribution Width SD 45.9 fl (35.1-43.9); Red Blood Count 5.14 M/mm3 (4.2-5.4); White Blood Count 4.5 K/mm3 (4.4-11.0)
[2019-12-11 10:51] LABS: Vitamin D,25 Hydroxy 30.2 ng/mL
[2019-12-11 11:12] LABS: AST(SGOT) 23 U/L (15-37); Alanine Aminotransfer ALT/SGPT 20 U/L (13-56); Albumin, Serum 3.7 g/dL (3.2-5.0); Alkaline Phosphatase 50 U/L (45-117); Anion Gap 4 (5-15); BUN 23 mg/dL (7-18); BUN/Creat Ratio 20.9 RATIO (10-20); Calcium,Total 9.4 mg/dL (8.5-10.1); Chloride 108 mmol/L (98-107); Cholesterol 195 mg/dL (200); EST Glomerular Filtration Rate 52 mL/min (>60); Est Glom Filt Rate - Afr Amer 63 mL/min (>60); Globulin 3.8 g/dL (2.2-4.2); Glucose 86 mg/dL (74-106); High Density Lipoprotein 71 mg/dL; Potassium 4.1 mmol/L (3.5-5.1); Protein, Total 7.5 g/dL (6.4-8.2); Sodium Level 140 mmol/L (136-145); Triglycerides 61 mg/dL; Very Low Density Lipoprotein 12 mg/dL (5-40)
== END ==
PROVIDERS: PCP Family Medicine; Referring Provider Family Medicine; Visit Provider Family Medicine
DX: I10 Essential (primary) hypertension (principal); E78.5 Hyperlipidemia, unspecified; M85.80 Other specified disorders of bone density and structure, unspecified site; E55.9 Vitamin D deficiency, unspecified
CPT/HCPCS: 36415; 80053; 80061; 82306; 85025

== ENCOUNTER → 2020-07-04 09:30 | Outpatient (CLI) | payer MEDICARE, SELFPAY ==
[2018-11-01 09:37] VITALS: BMI 22.0
[2020-07-04 12:38] LABS: Absolute Lymphocyte Count 1.69 X10^3/uL (0.83-4.51); Absolute Neutrophil Count 2.7 X10^3/uL (2.0-7.7); Eosinophil# 0.14 X10^3/uL; Eosinophils% 2.8 % (0-5); Hematocrit 52.3 % (37-47); Hemoglobin 16.5 g/dL (12.0-15.0); Lymphocyte # 1.69 X10^3/ul (4.0); Lymphocyte % 34.2 % (19-41); Mean Corp Hgb Conc 31.5 g/dL (32-36); Mean Corpuscular Hgb 30.3 pg (27.0-32.0); Monocyte# 0.31 X10^3/uL; Monocyte% 6.3 % (0-10); NRBC Flagged by Analyzer 0 % (0-5); Neutrophil # 2.68 X10^3/uL (2.7-7.7); Neutrophil % 54.3 % (47-70); Platelet Count 278 K/mm3 (150-450); RBC Distribution Width CV 13.2 % (11.6-14.6); RBC Distribution Width SD 46.8 fl (35.1-43.9); Red Blood Count 5.45 M/mm3 (4.2-5.4); White Blood Count 4.9 K/mm3 (4.4-11.0)
[2020-07-04 13:04] LABS: AST(SGOT) 27 U/L (15-37); Alanine Aminotransfer ALT/SGPT 27 U/L (13-56); Albumin, Serum 3.8 g/dL (3.2-5.0); Alkaline Phosphatase 62 U/L (45-117); Anion Gap 3 (5-15); BUN 15 mg/dL (7-18); BUN/Creat Ratio 14.3 RATIO (10-20); Chloride 108 mmol/L (98-107); Cholesterol 190 mg/dL (200); Creatinine, Serum 1.05 mg/dL (0.55-1.02); EST Glomerular Filtration Rate 55 mL/min (>60); Est Glom Filt Rate - Afr Amer 66 mL/min (>60); Globulin 3.8 g/dL (2.2-4.2); Glucose 84 mg/dL (74-106); High Density Lipoprotein 66 mg/dL; Potassium 3.9 mmol/L (3.5-5.1); Protein, Total 7.6 g/dL (6.4-8.2); Sodium Level 140 mmol/L (136-145); Triglycerides 81 mg/dL; Very Low Density Lipoprotein 16 mg/dL (5-40)
== END ==
PROVIDERS: PCP Family Medicine; Visit Provider Family Medicine
DX: I10 Essential (primary) hypertension (principal); E78.5 Hyperlipidemia, unspecified
CPT/HCPCS: 36415; 80053; 80061; 85025

== ENCOUNTER → 2020-12-23 14:36 | Outpatient (CLI) | payer MEDICARE, SELFPAY ==
[2020-12-15 11:01] VITALS: BMI 22.0
--- NOTE | 2020-12-23 14:37 | CT_ITS ---
INDICATION: evaluate aortic coarctation, cough -- previous aortic coarctation EXAMINATION: CTA Chest WO/W Contrast Injection TECHNIQUE: Helically acquired images were obtained of the chest following administration of IV contrast. A radiation dose optimization technique was used for this scan. 3D postprocessing images including MIPS were reviewed. IV Contrast dosage and agent: IV 100ML ISOVUE 370 COMPARISON: 09/05/2018. FINDINGS: Lungs: Unremarkable Mediastinum: The cardiomediastinal silhouette is not enlarged. No mediastinal, hilar or axillary adenopathy. Redemonstration of aortic coarctation distal to the origin of the left subclavian artery with diameter at area of narrowing measuring 1.9 cm, unchanged from prior. Mild aortic arch and coronary artery calcifications. No obvious filling defect seen within the visualized pulmonary arteries. Pleura: Unremarkable Bones/Soft tissues: No suspicious osseous or soft tissue lesions Upper abdomen: No visualized abnormalities in the upper abdomen. CT/CTA Chest W/WO Contrast IMPRESSION: Redemonstration of aortic coarctation distal to the origin of the left subclavian artery with diameter at area of narrowing measuring 1.9 cm, unchanged from prior. Electronically Signed: Carlos Pulido MD at 17:53 EDT Tel , Service support ,
[2020-12-23 15:01] LABS: CREATININE FINGERSTICK 1.2 mg/dL (0.55-1.02)
== END ==
PROVIDERS: PCP Family Medicine; Referring Provider Nurse Practitioner Family; Visit Provider Nurse Practitioner Family
DX: Q25.1 Coarctation of aorta (principal); R05 Cough
CPT/HCPCS: 71275; Q9967

== ENCOUNTER → 2021-03-12 11:36 | Outpatient (CLI) | payer MEDICARE, SELFPAY ==
[2021-03-12 12:28] LABS: Hematocrit 51.7 % (37-47); Hemoglobin 16.9 g/dL (12.0-15.0); Mean Corp Hgb Conc 32.7 g/dL (32-36); Mean Corpuscular Hgb 30.2 pg (27.0-32.0); Mean Corpuscular Volume 92.3 fL (81-99); Mean Platelet Vol. 10.4 fl (6.2-12.0); Platelet Count 267 K/mm3 (150-450); RBC Distribution Width CV 13.2 % (11.6-14.6); RBC Distribution Width SD 45.4 fl (35.1-43.9); White Blood Count 5.3 K/mm3 (4.4-11.0)
[2021-03-12 12:34] LABS: Erythrocyte Sedimentation Rate 20 mm/hr (0-30)
[2021-03-12 12:52] LABS: ALB/GLOB Ratio 0.8 RATIO (0.9-2.4); AST(SGOT) 27 U/L (15-37); Alanine Aminotransfer ALT/SGPT 27 U/L (13-56); Albumin, Serum 3.6 g/dL (3.2-5.0); Alkaline Phosphatase 71 U/L (45-117); Anion Gap 7 (5-15); BUN 19 mg/dL (7-18); BUN/Creat Ratio 18.3 RATIO (10-20); Calcium,Total 9.9 mg/dL (8.5-10.1); Chloride 107 mmol/L (98-107); Creatinine, Serum 1.04 mg/dL (0.55-1.02); EST Glomerular Filtration Rate 55 mL/min (>60); Est Glom Filt Rate - Afr Amer 67 mL/min (>60); Globulin 4.4 g/dL (2.2-4.2); Glucose 93 mg/dL (74-106); Potassium 3.6 mmol/L (3.5-5.1); Sodium Level 140 mmol/L (136-145)
[2021-03-14 21:08] LABS: Vitamin D 1,25-Dihydroxy 56.2 pg/mL (19.9-79.3)
== END ==
PROVIDERS: PCP Family Medicine; Visit Provider Psychiatry & Neurology Neurology
DX: R51.9 Headache, unspecified (principal); H93.19 Tinnitus, unspecified ear; I10 Essential (primary) hypertension
CPT/HCPCS: 36415; 80053; 82652; 85027; 85652

== ENCOUNTER → 2021-03-17 16:58 | Outpatient (CLI) | payer MEDICARE, SELFPAY ==
--- NOTE | 2021-03-17 17:00 | MRI_ITS ---
STUDY: MRI BRAIN WITH AND WITHOUT CONTRAST (ATTENTION INTERNAL AUDITORY CANALS - I.A.C.''s) REASON FOR EXAM: Female, 71 years old. Headache, head pressure x 6 months, tinnitus X 30 years TECHNIQUE: Standardized multiplanar fat and water weighted pulse sequences were obtained. 15ml IV Dotarem was administered for the contrast portion of the examination. COMPARISON: None. FINDINGS: Normal bilateral temporal bones. Normal bilateral internal auditory canals. There is no demonstrated intracanalicular or cisternal vestibular schwannoma (acoustic neuroma). There is no enhancement of the bilateral VIIth or VIIIth cranial nerves. Normal bilateral cochlea, vestibules and semicircular canals. Normal size of the ventricles and extra-axial spaces for the patient''s age. Normal white matter tracts of the supratentorial brain. Normal bilateral basal ganglia. Normal thalami. Normal flow voids within the major intracranial circulation suggesting patency by spin echo criteria. Normal venous enhancement. There is no enhancing intra-axial or extra-axial abnormality. There is no extra-axial fluid accumulation. Normal sella turcica, pituitary gland, infundibular stalk, optic chiasm and hypothalamus. Normal tectal plate and pineal gland. Normal midbrain, vanessa and medulla. Normal cerebellum. Normal basal cisterns. No demonstrated orbital abnormality, within the constraints of a routine brain study. Normal visualized paranasal sinuses. Normal calvarium and skull base. Normal visualized soft tissue structures. Normal visualized upper cervical spine. MRI/Brain W/WO Contrast IMPRESSION: Normal unenhanced and enhanced MRI of the bilateral internal auditory canals (I.A.C''s). COMMENT: There is no abnormal distention of the cavernous sinuses nor the superior ophthalmic veins. If tinnitus is pulsatile and dural AV fistula is a clinical consideration, cerebral arteriogram with bilateral external carotid arteriogram will be more helpful for further evaluation. Electronically Signed: Alexis Wilkinson MD at 9:35 EDT , Service support ,
== END ==
PROVIDERS: PCP Family Medicine; Visit Provider Psychiatry & Neurology Neurology
DX: R51.9 Headache, unspecified (principal); H93.19 Tinnitus, unspecified ear
CPT/HCPCS: 70553; A9575

== ENCOUNTER 2021-07-14 13:53 | Outpatient (CLI) | payer MEDICARE, SELFPAY ==
--- NOTE | 2021-07-14 13:55 | ECHOD_ITS ---
Reason For Study: HYPERTENSION Procedure This was a 2D Doppler, Color Flow transthoracic echocardiogram. Exam performed in department. Left Ventricle Normal LV size. Left ventricular systolic function is normal. The estimated ejection fraction is 60 %. Stage 1 diastolic dysfunction. No regional wall motion abnormalities noted. Right Ventricle Normal RV size. Normal systolic function. Atria Normal left atrium. Normal right atrium. Mitral Valve Normal mitral valve. Mild (1+) mitral valve insufficiency. Tricuspid Valve Normal tricuspid valve. Trivial tricuspid valve insufficiency. Aortic Valve Trisinus/trileaflet aortic valve. Mild (1+) aortic valve insufficiency. Pulmonic Valve Normal pulmonic valve. Great Vessels Normal aortic root. The pulmonary artery is normal size. Normal inferior vena cava. Pericardium/Pleural No pericardial effusion. MMode/2D Measurements & Calculations LVIDd: 3.8 cm IVSd: 0.74 cm Ao root diam: 3.2 cm LVIDs: 2.6 cm LVPWd: 0.63 cm RVDd: 3.0 cm FS: 31.1 % LAV(MOD-bp): 34.0 ml LVAd ap4: 26.3 cm2 SV(MOD-sp4): 48.8 ml LAV(MOD-bp) Indexed: 18.6 ml/m2 LVLd ap4: 7.1 cm LAV(MOD-sp2): 33.8 ml EDV(MOD-sp4): 81.4 ml LAV(MOD-sp4): 34.2 ml EDV(sp4-el): 82.7 ml LVAs ap4: 15.0 cm2 LVLs ap4: 5.7 cm ESV(MOD-sp4): 32.6 ml ESV(sp4-el): 33.5 ml EF(MOD-sp4): 59.9 % EF(sp4-el): 59.6 % SV(sp4-el): 49.3 ml LA A4 area: 14.9 cm2 LA dimension(2D): 3.0 cm RA A4 area: 12.1 cm2 Time Measurements MV dec time: 0.23 sec Doppler Measurements & Calculations MV E max isaiah: 66.9 cm/sec Lat Peak E' Isaiah: 9.6 cm/sec Med Peak E' Isaiah: 7.0 cm/sec MV A max isaiah: 89.5 cm/sec E/E' lat: 7.0 E/E' med: 9.5 MV E/A: 0.75 Ao V2 max: 180.4 cm/sec AI max isaiah: 429.9 cm/sec LV V1 max: 113.9 cm/sec Ao max P.0 mmHg AI max P.0 mmHg LV V1 max P.2 mmHg AI dec slope: 222.0 cm/sec2 AI P1/2t: 567.1 msec PA V2 max: 75.9 cm/sec ECHO/Echo Complete Interpretation Summary Normal LV size. Left ventricular systolic function is normal. The estimated ejection fraction is 60 %. Mild (1+) aortic valve insufficiency. Stage 1 diastolic dysfunction. Ordering Physician: Darron Pruitt Referring Physician: ROBERT CHAPIN Performed By: Viry Phipps RDCS
== END 2021-07-14 23:59 | disposition home or self-care (01) ==
LOC: CVS 13:54
PROVIDERS: PCP Family Medicine; Referring Provider Internal Medicine Cardiovascular Disease; Visit Provider Internal Medicine Cardiovascular Disease
DX: I47.1 Supraventricular tachycardia (principal); I10 Essential (primary) hypertension
CPT/HCPCS: 93306

== ENCOUNTER 2021-09-20 15:40 | Emergency (ER) | payer MEDICARE, SELFPAY ==
[2021-09-20 15:42] VITALS: BP 156/103; PULSE 85; RESP 16; TEMP 36.4; O2SAT 94; BMI 28.3
[2021-09-20 15:58] VITALS: BP 152/88
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
[2021-09-20] MEDS: Ibuprofen 600 MG Tablet PO (16:41)
== END 2021-09-20 17:32 | disposition home or self-care (01) ==
PROVIDERS: Emergency Provider Student in an Organized Health Care Education/Training Program; PCP Family Medicine; Visit Provider Student in an Organized Health Care Education/Training Program
DX: S46.911A Strain of unspecified muscle, fascia and tendon at shoulder and upper arm level, right arm, initial encounter (principal); I10 Essential (primary) hypertension; Z79.899 Other long term (current) drug therapy; V89.2XXA Person injured in unspecified motor-vehicle accident, traffic, initial encounter
CPT/HCPCS: 73030; 99283

== ENCOUNTER → 2021-11-23 | Outpatient (CLI) | payer MEDICARE, SELFPAY ==
--- NOTE | 2021-11-23 15:17 | BI_ITS ---
MAMMOGRAPHY - BILATERAL SCREENING REASON FOR EXAM: Female, 71 years old. Routine annual screening examination. PERTINENT HISTORY: Non-contributory. TECHNIQUE: Digital bilateral breast patsy (3D mammographic acquisition) in the CC and MLO projections. 2-D mediolateral oblique (MLO) and craniocaudad (CC) views of both breasts were obtained. CAD: Full Field Digital Mammography with Computer Added Detection was performed. COMPARISON: Comparison is made with prior examination dated 07/09/2020. FINDINGS: Breast Composition: The breasts are almost entirely fatty. There are no dominant masses or suspicious calcifications. No other significant abnormalities are identified. There has been no significant change since the prior study. BI/SCRN MAMM (CAD)W/PATSY BILAT IMPRESSION: Stable bilateral screening mammogram. Yearly follow-up mammogram recommended. (A) ASSESSMENT CATEGORY: BIRADS Category 1: Negative. A letter regarding these results will be sent to the patient by the facility within 30 days. Approximately 10% of breast cancers are not detected by mammography. A normal mammogram should not delay biopsy of a clinically suspicious abnormality. [id number] Electronically Signed: Teddy Gastelum MD at 8:16 EDT ,
== END | disposition home or self-care (01) ==
LOC: OPBI 15:16
PROVIDERS: PCP Family Medicine; Visit Provider Nurse Practitioner Women's Health
DX: Z12.31 Encounter for screening mammogram for malignant neoplasm of breast (principal)
CPT/HCPCS: 77063; 77067

== ENCOUNTER → 2021-11-27 | Outpatient (CLI) | payer MEDICARE, SELFPAY ==
[2021-11-27 17:44] LABS: Anion Gap 6 (5-15); BUN 15 mg/dL (7-18); BUN/Creat Ratio 16.3 RATIO (10-20); Calcium,Total 9.7 mg/dL (8.5-10.1); Chloride 108 mmol/L (98-107); Creatinine, Serum 0.92 mg/dL (0.55-1.02); EST Glomerular Filtration Rate 64 mL/min (>60); Est Glom Filt Rate - Afr Amer 77 mL/min (>60); Glucose 84 mg/dL (74-106); Potassium 4.2 mmol/L (3.5-5.1); Sodium Level 138 mmol/L (136-145)
== END | disposition home or self-care (01) ==
LOC: LAB 14:14
PROVIDERS: PCP Family Medicine; Referring Provider Nurse Practitioner Family; Visit Provider Nurse Practitioner Family
DX: I10 Essential (primary) hypertension (principal)
CPT/HCPCS: 36415; 80048

== ENCOUNTER 2022-01-27 18:54 | Emergency (ER) | payer MEDICARE, SELFPAY ==
[2022-01-27 18:55] VITALS: BP 142/72; PULSE 48; RESP 17; TEMP 36.2; O2SAT 97; BMI 28.3
--- NOTE | 2022-01-27 19:04 | RAD_ITS ---
STUDY: X-RAY - RIGHT ANKLE REASON FOR EXAM: Female, 71 years old. INJURY TECHNIQUE: 3 view(s) of the ankle. COMPARISON: None. FINDINGS: Normal visualized distal tibia and fibula. Acute transverse nondisplaced fracture of the lateral malleolus. Adjacent soft tissue swelling and small effusion. Normal medial malleoli. Normal tibiotalar articulation and ankle mortise. Normal visualized talus and calcaneus. Plantar calcaneal spur and small inferior osteophyte. Calcification of the distal Achilles tendon. The visualized subtalar, talonavicular, calcaneocuboid and tarsal articulations are normal. RAD/Ankle min 3 Views IMPRESSION: Acute transverse nondisplaced fracture of the lateral malleolus. Electronically Signed: Zina Garner MD at 19:37 EDT Reading Location ID and State: , Service support ,
[2022-01-27] MEDS: HYDROcodone Bitartrate/Apap 5/325 Tablet PO (20:24)
--- NOTE | 2022-01-27 21:03 | EDS_ITS ---
HPI History of Present Illness HPI Narrative: Patient presents with right ankle injury that occurred today. Patient states she was walking and inverted her ankle. Patient states her pain is aching. Patient states nothing makes it worse and nothing makes it better. Patient denies any snapping or popping sensation. Patient denies any paresthesias or weakness. Patient denies any radiation of the pain. Patient denies any other injuries. Patient denies any pain over the proximal fibula or fifth metatarsal. Chief Complaint: Lower Extremity Injury Informant: patient Occured/Mechanism Comment: Twisted Onset/Context/Timing Onset: Today Context: Sudden Onset Timing: Continuous Quality of Pain: Aching Location: Right ankle Worsened by: Nothing Relieved by: Nothing Associated Symptoms Associated Symptoms: Negative for Parasthesia, Weakness or Loss of Funtion PFSH [facility] Medical History Abdominal pain Angioedema Anxiety and depression Diverticulitis Dyspnea on exertion Essential hypertension Hyperlipidemia Hypotension SVT (supraventricular tachycardia) Home Medications diltiazem HCl 120 mg capsule,extended release 24 hr 120 mg PO DAILY HEART 09/05/18 [History Last Taken 09/05/18] losartan 50 mg tablet 50 mg PO DAILY #90 tabs 05/01/21 [Rx Last Taken Unknown] hydrocodone-acetaminophen 5-325mg 5mg-325mg 0.333 tab PO ONCE PRN 11/02/21 [History Last Taken Unknown] clobetasol 0.05 % topical ointment 1 applic topical .COMPLEX #15 grams 11/03/21 [Rx Last Taken Unknown] estradiol 0.01% (0.1 mg/gram) vaginal cream See Rx Instructions vaginal DAILY 30 days #42.5 grams 12/02/21 [Rx Last Taken Unknown] hydrocodone-acetaminophen 5-325mg 5mg-325mg 1 tab PO Q6H PRN PRN Pain 3 days #10 TABLETS 01/27/22 [Rx Last Taken Unknown] Allergy/AdvReac Type Severity Reaction Status Date / Time bacitracin Allergy Rash Verified 01/27/22 18:54 [From Neosporin ([id number])] bee venom protein (honey bee) Allergy Anaphylaxis Verified 01/27/22 18:54 ciprofloxacin [From Cipro] Allergy Swelling, Verified 01/27/22 18:54 hives metronidazole [From Flagyl] Allergy Swelling, Verified 01/27/22 18:54 hives neomycin Allergy Rash Verified 01/27/22 18:54 [From Neosporin ([id number])] polymyxin B Allergy Rash Verified 01/27/22 18:54 [From Neosporin ([id number])] Family History Mother CVA (cerebral vascular accident) Myocardial infarction age 58 Brother CAD (coronary artery disease) CABG Father CAD (coronary artery disease) Surgical History H/O sinus surgery H/O tubal ligation History of bunionectomy of left great toe History of carpal tunnel release History of cataract surgery History of left heart catheterization (04/13/18) Social History household members: spouse current occupational status: retired Smoking Status: Never smoker Electronic Cigarette Use: not used second hand exposure: No alcohol intake: never substance use type: does not use caffeine: Yes Type: coffee Number of servings: 3 what type of physical activity do you participate in: none seatbelt use: always do you feel safe at home: Yes additional social history: - Sushant ASHISH HINOJOSA ED Constitutional Constitutional ED: Denies chills or fever(s) Eyes Eyes: Denies blurry vision or change in vision ENT ENT ED: Denies rhinorrhea or sore throat Cardiovascular Cardiovascular: Denies chest pain or palpitations Respiratory/Chest Respiratory/Chest: Denies cough or dyspnea Gastrointestinal Gastrointestinal: Denies nausea or vomiting Genitourinary Genitourinary ED: Denies dysuria or hematuria Musculoskeletal Musculoskeletal: Denies back pain or neck pain Integumentary Denies abscess or rash Neurologic Neurologic: Denies headache(s) or weakness Allergic/Immunologic Allergic/Immunologic ED: Denies mouth swelling or urticaria EXAM Physical Exam Const Vital Signs: 01/27/22 18:55 Temperature 97.2 F L Temperature Source Temporal Pulse Rate 48 L Respiratory Rate 17 Blood Pressure 142/72 H Blood Pressure Mean 95 Pulse Ox 97 Oxygen Delivery Method Room Air Positive well nourished and well developed General Appearance ED: well developed and NAD HEENT Reports moist mucous membranes Neck full ROM and supple Extremity Extremity Narrative: There is tenderness, edema, and ecchymosis over the lateral malleolus of the right ankle. There is no tenderness over the fifth metatarsal. There is no tenderness over the proximal fibula. Range of motion was limited in all motions of the right ankle secondary to pain. Sensation was intact to light touch in all digits. Capillary refill was less than 2 seconds in all digits. Pedal pulses are equal bilaterally. Neuro oriented x3, CN's II-XII intact bilaterally and moves all extremities Sensorium / Orientation: alert Motor Exam: strength 5/5 throughout Psych mental status grossly normal Skin no wounds MDM MDM MDM Narrative Medical decision making narrative: X-rays of the right ankle were obtained. There are 3 views. On my interpretation, there is a nondisplaced fracture of the tip of the distal fibula. This does not extend into the joint line. Radiologist also interpreted the x-rays and agrees. Patient was placed in a well-padded custom made posterior splint. Patient was given crutches. Patient was instructed to ice and elevate the right ankle. Patient was instructed to follow-up with her primary care physician in 5 to 7 days. Patient was also given referral for orthopedics. Patient was given a dose of Troup here. Patient was given a prescription for Troup. Patient understood and was agreeable with the plan. All questions were answered. Radiography Diagnostic Testing: Clinical Impression(s) from Imaging Studies Ankle X-Ray 01/27/22 19:04 IMPRESSION: Acute transverse nondisplaced fracture of the lateral malleolus. Electronically Signed: Zina Garner MD at 19:37 EDT Reading Location ID and State: , Service support , Procedures Lower Extremity Splints Lower Extremity Splint: Orthoglass and - (Posterior) Splint Fabrication: Fabricated Location: Right Discharge Plan Triage Chief Complaint: Lower Extremity Injury ED Provider: Eliseo Byrd Dx/Rx/DC Orders Clinical Impression: Closed fracture of distal end of right fibula Instructions: ED Ankle Fracture, Distal Fibula Prescriptions: New hydrocodone-acetaminophen [hydrocodone-acetaminophen] 5-325 mg tablet 1 tab PO Q6H PRN PRN (Reason: Pain) 3 Days Qty: 10 0RF No Action losartan 50 mg tablet 50 mg PO DAILY Qty: 90 3RF hydrocodone-acetaminophen 5-325 mg tablet 0.333 tab PO ONCE PRN clobetasol 0.05 % ointment 1 applic topical .COMPLEX Qty: 15 2RF Rx Instructions: 1 applic topical apply bid X 2 weeks, daily X 2 weeks then prn. Small amount and massge in; estradiol 0.01 % (0.1 mg/gram) cream See Rx Instructions vaginal DAILY 30 Days Qty: 42.5 1RF Rx Instructions: small amount vaginally daily; diltiazem HCl 120 MG capsule 120 mg PO DAILY Primary Care Provider: Emily Perry Referrals: Emily Perry MD [Primary Care Provider] - 3-5 Days Cj Edmondson MD [Med Staff - Active Staff] - 3-5 Days Disposition Disposition: Home, Self Care Discharge Date/Time: 01/27/22 21:35
== END 2022-01-27 21:35 | disposition home or self-care (01) ==
PROVIDERS: Emergency Provider Emergency Medicine; PCP Family Medicine; Visit Provider Emergency Medicine
DX: S82.831A Other fracture of upper and lower end of right fibula, initial encounter for closed fracture (principal); X50.1XXA Overexertion from prolonged static or awkward postures, initial encounter
CPT/HCPCS: 29515; 73610; 99284

== ENCOUNTER → 2022-11-04 | Outpatient (CLI) | payer MEDICARE, SELFPAY ==
[2022-11-04 16:40] LABS: AST(SGOT) 23 U/L (15-37); Alanine Aminotransfer ALT/SGPT 19 U/L (13-56); Albumin, Serum 3.5 g/dL (3.2-5.0); Alkaline Phosphatase 80 U/L (45-117); Bilirubin, Direct 0.09 mg/dL (0.00-0.30); Cholesterol 241 mg/dL (200); Globulin 3.9 g/dL (2.2-4.2); High Density Lipoprotein 65 mg/dL; Protein, Total 7.4 g/dL (6.4-8.2); Triglycerides 185 mg/dL; Very Low Density Lipoprotein 37 mg/dL (5-40)
== END | disposition home or self-care (01) ==
LOC: LAB 15:00
PROVIDERS: PCP Family Medicine; Referring Provider Internal Medicine Cardiovascular Disease; Visit Provider Internal Medicine Cardiovascular Disease
DX: E78.00 Pure hypercholesterolemia, unspecified (principal)
CPT/HCPCS: 36415; 80061; 80076

== ENCOUNTER → 2023-01-06 | Outpatient (CLI) | payer MEDICARE, SELFPAY ==
[2023-01-06 17:42] LABS: Absolute Lymphocyte Count 2.13 X10^3/uL (0.83-4.51); Absolute Neutrophil Count 3.5 X10^3/uL (2.0-7.7); Basophil# 0.11 X10^3/uL; Basophil% 1.7 % (0-1); Eosinophil# 0.16 X10^3/uL; Eosinophils% 2.5 % (0-5); Hematocrit 50.7 % (37-47); Hemoglobin 16.6 g/dL (12.0-15.0); Lymphocyte # 2.13 X10^3/ul (0.83-4.51); Lymphocyte % 33.2 % (19-41); Mean Corp Hgb Conc 32.7 g/dL (32-36); Mean Corpuscular Hgb 31.9 pg (27.0-32.0); Mean Corpuscular Volume 97.3 fL (81-99); Mean Platelet Vol. 11.1 fl (6.2-12.0); Monocyte# 0.48 X10^3/uL; Monocyte% 7.5 % (0-10); NRBC Flagged by Analyzer 0 % (0-5); Neutrophil # 3.51 X10^3/uL (2.7-7.7); Neutrophil % 54.8 % (47-70); Platelet Count 257 K/mm3 (150-450); RBC Distribution Width CV 13.2 % (11.6-14.6); RBC Distribution Width SD 47.6 fl (35.1-43.9); Red Blood Count 5.21 M/mm3 (4.2-5.4); White Blood Count 6.4 K/mm3 (4.4-11.0)
[2023-01-06 18:02] LABS: Anion Gap 7 (5-15); BUN 12 mg/dL (7-18); Calcium,Total 9.7 mg/dL (8.5-10.1); Chloride 107 mmol/L (98-107); EST Glomerular Filtration Rate 58 mL/min (>60); Est Glom Filt Rate - Afr Amer 70 mL/min (>60); Glucose 95 mg/dL (74-106); Potassium 4.8 mmol/L (3.5-5.1); Sodium Level 138 mmol/L (136-145)
== END | disposition home or self-care (01) ==
LOC: BFHLAB 14:50
PROVIDERS: PCP Family Medicine; Referring Provider Family Medicine; Visit Provider Family Medicine
DX: I12.9 Hypertensive chronic kidney disease with stage 1 through stage 4 chronic kidney disease, or unspecified chronic kidney disease (principal); N18.30 Chronic kidney disease, stage 3 unspecified
CPT/HCPCS: 36415; 80048; 85025

== ENCOUNTER → 2023-06-21 | Outpatient (CLI) | payer MEDICARE, SELFPAY ==
[2023-06-21 17:36] LABS: Absolute Lymphocyte Count 2.03 X10^3/uL (0.83-4.51); Basophil# 0.09 X10^3/uL; Basophil% 1.3 % (0-1); Eosinophil# 0.18 X10^3/uL; Eosinophils% 2.7 % (0-5); Hematocrit 48.9 % (37-47); Hemoglobin 15.7 g/dL (12.0-15.0); Lymphocyte # 2.03 X10^3/ul (0.83-4.51); Lymphocyte % 29.9 % (19-41); Mean Corp Hgb Conc 32.1 g/dL (32-36); Mean Corpuscular Volume 96.4 fL (81-99); Mean Platelet Vol. 10.7 fl (6.2-12.0); Monocyte# 0.48 X10^3/uL; Monocyte% 7.1 % (0-10); NRBC Flagged by Analyzer 0 % (0-5); Neutrophil # 3.98 X10^3/uL (2.7-7.7); Neutrophil % 58.6 % (47-70); Platelet Count 283 K/mm3 (150-450); RBC Distribution Width CV 13.9 % (11.6-14.6); RBC Distribution Width SD 49.4 fl (35.1-43.9); Red Blood Count 5.07 M/mm3 (4.2-5.4); White Blood Count 6.8 K/mm3 (4.4-11.0)
[2023-06-21 17:48] LABS: ALB/GLOB Ratio 0.9 RATIO (0.9-2.4); AST(SGOT) 21 U/L (15-37); Alanine Aminotransfer ALT/SGPT 25 U/L (13-56); Albumin, Serum 3.6 g/dL (3.2-5.0); Alkaline Phosphatase 77 U/L (45-117); Anion Gap 4 (5-15); BUN 17 mg/dL (7-18); BUN/Creat Ratio 16.3 RATIO (10-20); Calcium,Total 9.8 mg/dL (8.5-10.1); Chloride 107 mmol/L (98-107); Cholesterol 238 mg/dL (200); Creatinine, Serum 1.04 mg/dL (0.55-1.02); EST Glomerular Filtration Rate 55 mL/min (>60); Est Glom Filt Rate - Afr Amer 66 mL/min (>60); Glucose 96 mg/dL (74-106); High Density Lipoprotein 58 mg/dL; Potassium 4.3 mmol/L (3.5-5.1); Protein, Total 7.6 g/dL (6.4-8.2); Sodium Level 137 mmol/L (136-145); Thyroid Stim Hormone (TSH) 3.59 uIU/mL (0.358-3.74); Triglycerides 170 mg/dL; Very Low Density Lipoprotein 34 mg/dL (5-40)
[2023-06-21 18:21] LABS: Hepatitis C Antibody Non-Reactive (Nonreactive); Vitamin D,25 Hydroxy 25.2 ng/mL
== END | disposition home or self-care (01) ==
LOC: POLAB3 16:00
PROVIDERS: PCP Family Medicine Geriatric Medicine; Visit Provider Family Medicine Geriatric Medicine
DX: E55.9 Vitamin D deficiency, unspecified (principal); E78.5 Hyperlipidemia, unspecified; Z13.89 Encounter for screening for other disorder
CPT/HCPCS: 36415; 80053; 80061; 82306; 84443; 85025; 86803

== ENCOUNTER → 2023-11-09 | Outpatient (CLI) | payer MEDICARE, SELFPAY | END | disposition home or self-care (01) | LOC: PSN 10:46 | PROVIDERS: PCP Family Medicine Geriatric Medicine; Referring Provider Nurse Practitioner Gerontology; Visit Provider Nurse Practitioner Gerontology | DX: R00.2 Palpitations (principal) | CPT/HCPCS: 93225; 93226 ==

== ENCOUNTER → 2024-04-03 | Outpatient (CLI) | payer MEDICARE, SELFPAY ==
[2024-04-03 11:50] LABS: AST(SGOT) 18 U/L (15-37); Alanine Aminotransfer ALT/SGPT 16 U/L (13-56); Albumin, Serum 3.4 g/dL (3.2-5.0); Alkaline Phosphatase 74 U/L (45-117); Anion Gap 2 (5-15); BUN 12 mg/dL (7-18); BUN/Creat Ratio 12.3 RATIO (10-20); Calcium,Total 9.4 mg/dL (8.5-10.1); Chloride 110 mmol/L (98-107); Cholesterol 185 mg/dL (200); Creatinine, Serum 0.97 mg/dL (0.55-1.02); EST Glomerular Filtration Rate 59 mL/min (>60); Est Glom Filt Rate - Afr Amer 72 mL/min (>60); Globulin 3.7 g/dL (2.2-4.2); Glucose 93 mg/dL (74-106); High Density Lipoprotein 71 mg/dL; Magnesium 2.2 mg/dL (1.6-2.6); Potassium 4.6 mmol/L (3.5-5.1); Protein, Total 7.1 g/dL (6.4-8.2); Sodium Level 139 mmol/L (136-145); Triglycerides 77 mg/dL; Very Low Density Lipoprotein 15 mg/dL (5-40)
== END | disposition home or self-care (01) ==
LOC: LAB 10:31
PROVIDERS: Referring Provider Nurse Practitioner Gerontology; Visit Provider Nurse Practitioner Gerontology
DX: E78.00 Pure hypercholesterolemia, unspecified (principal); I48.91 Unspecified atrial fibrillation
CPT/HCPCS: 36415; 80048; 80061; 80076; 83735; 84443

== ENCOUNTER 2024-04-18 11:07 | Outpatient (RCR) | payer MEDICARE, SELFPAY ==
--- NOTE | 2024-04-18 12:26 | HP.PTEVAL ---
Patient's Visit Information Visit Information Visit Information: HALLIE DUMONT is a 74 year old F referred to Physical Therapy by Dr. Skyler Herman MD with a diagnosis of L greater troch bursitis/pain in hip. Date of Evaluation: 04/18/24 Physical Therapist: ELROY Yarbrough Visit Plan Frequency: 2x /Week Duration: 3 Weeks Plan: 2X/ week for 3 weeks for strengthening of B hips and stairs, curb steps and sit to stand activities to improve strength. HEP: SLR, Bridges, S/L hip abd, sit to stands Subjective Subjective: Pt has bursitis in L hip and she got a shot in the hip. He wanted her to do PT. The shot helped a lot. Her leg does not give way now. Stairs were painful before the shot but now they are not. She is good getting up out of a chair. She does not sleep well. She like to sleep on her L side and can do that now but has been trying to sleep more on her R side also. Her balance is pretty good. She is leaving Tuesday and won't be back until the 05-02. Pain L hip pain: Pain Intensity (Out of 10): 0 Objective Objective: Gait: Walks with decrease slight stance time on the L LE. Heel and Toe raises: pt is able to heel and toe raise with no UE support Stairs: Walks up and down the steps recip using no hand rails ascending with slight veering but catches self and 1 handrail descending the step Good HS, piriformis, IT band flexibility LE MMT: R hip flex 12.3 and 11.9 R knee ext 20.2 and L 19.1 R knee flex 11.2 and L 10.9 R hip abd 11.4 and L 11.4 Palpation: no tenderness along the greater trochanter or piriformis on the L or R Good B hip AROM (FLex, ER, IR) Sit to stand with no arms 2 X 10 but struggles due to weakness Balance/Special Test Scores Lower Extremity Functional Score: 57 Goals Goal 1:: I HEP Goal Time Frame: 6-8 Weeks Goal 2:: Be able to go up and down the steps recip without veering or any hesitation Goal Time Frame: 6-8 Weeks Goal 3:: Be able to do 2 X 10 sit to stands with no UE support with no signs of weakness Rehabilitation Potential Rehabilitation Potential: Good Anticipated Interventions Patient/Client Instruction: Educate patient on: Condition and Plan of Care For the Purpose of:: To decrease pain, To increase ROM, To improve muscle performance and motor function, To improve ability to perform ADL's, To increase tolerance to activity/condition/position, To improve performance and independence with ADL's, To improve gait and locomotor functions, To increase flexibility/ROM and To improve endurance Therapeutic Exercise to Include: Strength training, Body mechanics, Gait and locomotor training, Active ROM and Dynamic Lumbar Stabilization For the Purpose of:: To improve muscle performance and motor function, To improve ability to perform ADL's, To improve performance and independence with ADL's, To decrease level of supervision to perform tasks, To improve ability of physical actions for home/community/work/leisure and To increase flexibility/ROM Functional Training to Include: Gait training For the Purpose of:: To improve gait and locomotor functions Text: Thank you for the opportunity to evaluate your patient. For Medicare and Medicare HMO plans, please review the plan of care and approve it. It will need to be FAXED BACK to us at [phone] for Medicare purposes. For Medicare only, by signing this I certify the plan of care. Please let me know if there are questions or concerns regarding this plan of care. Physician Signature: Date:
--- NOTE | 2024-06-18 07:50 | HP.PTDCNRP_ITS ---
Patient Information Patient Information: HALLIE DUMONT was seen in my office for initial evaluation on 04/18/24. The following Plan of Care was established for this patient: POC Established Initial Frequency: 2x /Week Initial Duration: 3 Weeks Anticipated Interventions Patient/Client Instruction: Educate patient on: Condition and Plan of Care For the Purpose of:: To decrease pain, To increase ROM, To improve muscle performance and motor function, To improve ability to perform ADL's, To increase tolerance to activity/condition/position, To improve performance and independ ence with ADL's, To improve gait and locomotor functions, To increase flexibility/ROM and To improve endurance Therapeutic Exercise to Include: Strength training, Body mechanics, Gait and locomotor training, Active ROM and Dynamic Lumbar Stabilization For the Purpose of:: To improve muscle performance and motor function, To improve ability to perform ADL's, To improve performance and independence with ADL's, To decrease level of supervision to perform tasks, To improve ability of physical actions for home/community/work/leisure and To increase flexibility/ROM Functional Training to Include: Gait training For the Purpose of:: To improve gait and locomotor functions Last Seen Last Seen: This patient was last seen in our office 04/18/24. Pertinent comments regarding their Physical therapy will appear below: DC PT At this point I will be discontinuing this patient from physical therapy. I would be happy to see this patient again in the future if found appropriate by the physician. Thank you! Tete Rico, ELROY Balance/Gait/Functional tests Balance/Special Test Scores Lower Extremity Functional Score: 57
== END 2024-04-18 19:00 | disposition home or self-care (01) ==
LOC: PT 11:07
PROVIDERS: Referring Provider Orthopaedic Surgery Sports Medicine; Visit Provider Orthopaedic Surgery Sports Medicine
DX: M25.552 Pain in left hip (principal); M70.62 Trochanteric bursitis, left hip
CPT/HCPCS: 97161

== ENCOUNTER → 2024-05-24 | Outpatient (CLI) | payer MEDICARE, SELFPAY ==
[2024-05-24 10:37] LABS: Absolute Lymphocyte Count 1.38 X10^3/uL (0.83-4.51); Absolute Neutrophil Count 4.6 X10^3/uL (2.0-7.7); Basophil# 0.08 X10^3/uL; Basophil% 1.2 % (0-1); Eosinophil# 0.17 X10^3/uL; Eosinophils% 2.5 % (0-5); Hematocrit 47.7 % (37-47); Hemoglobin 15.8 g/dL (12.0-15.0); Lymphocyte # 1.38 X10^3/ul (0.83-4.51); Lymphocyte % 20.2 % (19-41); Mean Corp Hgb Conc 33.1 g/dL (32-36); Mean Corpuscular Hgb 31.2 pg (27.0-32.0); Mean Corpuscular Volume 94.1 fL (81-99); Mean Platelet Vol. 9.9 fl (6.2-12.0); Monocyte# 0.53 X10^3/uL; Monocyte% 7.7 % (0-10); NRBC Flagged by Analyzer 0 % (0-5); Neutrophil # 4.62 X10^3/uL (2.7-7.7); Neutrophil % 67.5 % (47-70); Platelet Count 310 K/mm3 (150-450); RBC Distribution Width CV 13.2 % (11.6-14.6); RBC Distribution Width SD 45.7 fl (35.1-43.9); Red Blood Count 5.07 M/mm3 (4.2-5.4); White Blood Count 6.8 K/mm3 (4.4-11.0)
[2024-05-24 11:15] LABS: ALB/GLOB Ratio 0.7 RATIO (0.9-2.4); AST(SGOT) 19 U/L (15-37); Alanine Aminotransfer ALT/SGPT 18 U/L (13-56); Albumin, Serum 3.2 g/dL (3.2-5.0); Alkaline Phosphatase 78 U/L (45-117); Anion Gap 5 (5-15); BUN 18 mg/dL (7-18); BUN/Creat Ratio 13.8 RATIO (10-20); Chloride 104 mmol/L (98-107); EST Glomerular Filtration Rate 42 mL/min (>60); Est Glom Filt Rate - Afr Amer 51 mL/min (>60); Globulin 4.4 g/dL (2.2-4.2); Glucose 110 mg/dL (74-106); Potassium 4.9 mmol/L (3.5-5.1); Protein, Total 7.6 g/dL (6.4-8.2); Sodium Level 137 mmol/L (136-145)
== END | disposition home or self-care (01) ==
DX: Z13.6 Encounter for screening for cardiovascular disorders (principal)
CPT/HCPCS: 36415; 80053; 84443; 85025

== ENCOUNTER → 2024-07-10 | Outpatient (CLI) | payer MEDICARE, SELFPAY ==
--- NOTE | 2024-07-10 13:48 | BD_ITS ---
PROCEDURE: DEXA BONE DENSITY STUDY REASON FOR EXAM: F, age 74 y/o . Postmenopausal. TECHNIQUE: DEXA scan of the lumbar spine and both hips. COMPARISON: None. FINDINGS: Lumbar Spine (L1-L4): g/cm2 (0.892)/T-score (-1.1)/Z-score (1.3) findings are suggestive of osteopenia with a low fracture risk. Left Femur Total: g/cm2 (0.723)/T-score (-1.8)/Z-score (0.1) Left Femoral Neck: g/cm2 (0.717)/T-score (-1.2)/Z-score (1.0) Right Femur Total: g/cm2 (0.734)/T-score (-1.7)/Z-score (0.1) Right Femoral Neck: g/cm2 (0.763)/T-score (-0.8)/Z-score (1.4) BD/Dexa Bone Density Study IMPRESSION: The patient is considered osteopenic as outlined below according to World [employer] (WHO) criteria with a moderate fracture risk. Reading Location: [facility]
== END | disposition home or self-care (01) ==
LOC: OPBD 13:39
DX: Z13.820 Encounter for screening for osteoporosis (principal); Z78.0 Asymptomatic menopausal state
CPT/HCPCS: 77080

== ENCOUNTER → 2024-07-18 | Outpatient (CLI) | payer MEDICARE, SELFPAY ==
[2024-07-18 13:38] LABS: Anion Gap 13 (5-15); BUN 14 mg/dL (4-19); BUN/Creat Ratio 14.2 RATIO (10-20); Calcium,Total 9.8 mg/dL (7.6-11.0); Carbon Dioxide 21.2 mmol/L (21.0-32.0); Chloride 105 mmol/L (98-108); Creatinine, Serum 0.99 mg/dL (0.70-1.20); EST Glomerular Filtration Rate 59 (>60); Glucose 97 mg/dL (70-99); Potassium 4.8 mmol/L (3.3-5.1); Sodium Level 139 mmol/L (133-145)
== END | disposition home or self-care (01) ==
LOC: VSLAB 10:43
DX: R94.4 Abnormal results of kidney function studies (principal)
CPT/HCPCS: 36415; 80048

== ENCOUNTER → 2024-08-20 | Outpatient (CLI) | payer MEDICARE, SELFPAY ==
--- NOTE | 2024-08-20 13:25 | RAD_ITS ---
PROCEDURE: Right shoulder radiographs, four views 08/20/2024 REASON FOR EXAM: PAIN IN RIGHT SHOULDER TECHNIQUE: Four views of the right shoulder were obtained. COMPARISON: None available FINDINGS: Four views of the right shoulder were obtained. Bones are osteopenic. Included right lung clear. No acute fracture or dislocation of the right shoulder. Mild degenerative change of the right acromioclavicular joint. No AC joint widening. Subacromial space is maintained. Moderate degenerative change right glenohumeral joint. RAD/Shoulder min 2 Views IMPRESSION: Osteopenia. No acute abnormality of the right shoulder. Moderate degenerative change right glenohumeral joint. Mild degenerative change right acromioclavicular joint. Reading Location: [facility]
== END | disposition home or self-care (01) ==
LOC: RAD 13:20
DX: M25.511 Pain in right shoulder (principal)
CPT/HCPCS: 73030

== ENCOUNTER → 2025-04-02 | Outpatient (CLI) | payer MEDICARE, SELFPAY ==
[2025-04-02 16:56] LABS: Hematocrit 49.0 % (37-47); Hemoglobin 15.8 g/dL (12.0-15.0); Immature Granulocytes Count 0.020 X10^3/uL (0.0-0.0); Mean Corp Hgb Conc 32.2 g/dL (32-36); Mean Corpuscular Volume 96.8 fL (81-99); Mean Platelet Vol. 11.1 fl (6.2-12.0); NRBC Flagged by Analyzer 0 % (0-5); Platelet Count 282 K/mm3 (150-450); RBC Distribution Width CV 13.8 % (11.6-14.6); RBC Distribution Width SD 49.4 fl (35.1-43.9); Red Blood Count 5.06 M/mm3 (4.2-5.4); White Blood Count 7.3 K/mm3 (4.4-11.0)
[2025-04-02 17:19] LABS: Creatinine, Urine (random) 47.80 mg/dL (28.00-217.00); Microalbumin,Random Urine 56.0 mg/L (<20 mg/L)
[2025-04-02 17:24] LABS: AST(SGOT) 30 U/L (<=31); Alanine Aminotransfer ALT/SGPT 19 U/L (<=34); Albumin, Serum 4.2 g/dL (3.4-4.8); Alkaline Phosphatase 67 U/L (35-104); Anion Gap 11 (5-15); BUN 21 mg/dL (4-19); BUN/Creat Ratio 23.3 RATIO (10-20); Calcium,Total 10.1 mg/dL (7.6-11.0); Carbon Dioxide 23.0 mmol/L (21.0-32.0); Chloride 102 mmol/L (98-108); Globulin 3.4 g/dL (2.2-4.2); Glucose 91 mg/dL (70-99); Potassium 4.7 mmol/L (3.3-5.1)
--- OUTSIDE RECORDS SUMMARY | 2025-04-02 19:13 | XMS RPT_ITS | CCD ---
Author Organization [facility] CliniSysd Care Team Providers Care Rag Collector Name Role Phone Jeni BLANTON, Denise Sahni Unavailable Unavailable Leslie Wells Unavailable Unavailable Denise Ngo RN Unavailable Unavailable DEEDEE OLIVER JR. Unavailable Unavailable DEEDEE OLIVER JR. Unavailable Unavailable Leslie Wells Unavailable Unavailable Dr. Emily Perry Primary Care Provider [phone] Dr. Darron Pruitt Attending Provider Dr. Emily Perry Primary Care Provider Dr. Emily Perry Referring Provider [phone] Stacy SCREEN MAKING SUPERVISOR, SCREEN MAKING SUPERVISOR-C Daisy Attending Provider Juan Manuel SCREEN MAKING SUPERVISOR, SCREEN MAKING SUPERVISOR-C Amadeo Arreguin Attending Provider Keerthi SCREEN MAKING SUPERVISOR, SCREEN MAKING SUPERVISOR-Babak Shin Attending Provider Emily Perry Primary Care Provider [phone] Emily Perry Primary Care Provider [phone] EMILY PERRY Primary Care Unavailabl JAKE Quiñones Referring Unavailable JAKE BARBOSA Attending Unavailable EMILY PERRY Primary Care Unavailabl JAKE Quiñones Referring Unavailable EMILY PERRY Primary Care Unavailabl JAKE Quiñones Attending Unavailable EMILY PERRY Primary Care UnavailJAKE Eubanks Attending Unavailable Emily Perry Primary Care Provider Dr. Emily Perry Primary Care Provider Dr. Emily Perry Referring Provider [phone] Darron Pruitt Attending Provider Emily Perry MD Primary Care Provider Care Physician, No Primary Primary Care Provider Unavailable Dorian ABDUL-C, Shanna Attending Provider Dorian SCREEN MAKING SUPERVISOR-C, Shanna Referring Provider Care Physician, No Primary Referring Provider Un available Skyler Herman MD Attending Provider Dr. Darron Pruitt MD Attending Provider Juan Manuel SCREEN MAKING SUPERVISOR-C, Amadeo Arreguin Attending Provider Skyler Herman MD Referring Provider Beam SCREEN MAKING SUPERVISOR-C, Zebulun Attending Provider Beam SCREEN MAKING SUPERVISOR-C, Zebulun Referring Provider Beam SCREEN MAKING SUPERVISOR-C, Zebulun Primary Care Provider Care Physician, No Primary Primary Care Provider Unavailable Diogo, Jon Chi Primary Care Unavailable Dorian ABDUL, Shanna Referring Unavailable Dorian ABDUL, Shanna Attending Unavailable Beam VSC, Zebulun Attending Unavailable Beam VSC, Zebulun Referring Unavailable Beam VSC, Zebulun Primary Care Unavailable Beam VSC, Zebulun Attending Unavailable Beam VSC, Zebulun Primary Care Unavailable Beam VSC, Zebulun Attending Unavailable Beam VSC, Zebulun Referring Unavailable Beam VSC, Zebulun Primary Care Unavailable Beam VSC, Zebulun Attending Unavailable Beam VSC, Zebulun Referring Unavailable Care Physician, No Primary Primary Care Unava ilable Skyler Herman Attending Unavailable Skyler Herman Referring Unavailable Care Physician, No Primary Primary Care Unava ilable Juan Manuel ABDUL, Amadeo Arreguin Attending Unavailable Care Physician, No Primary Primary Care Unava ilable Care Physician, No Primary Referring Unava ilable Darron Pruitt Attending Unavailable Care Physician, No Primary Primary Care Unava ilable Skyler Herman Attending Unavailable Care Physician, No Primary Primary Care Unava ilable Care Physician, No Primary Referring Unava ilable Diogo, Jon Chi Primary Care Unavailable Dorian ABDUL, Shanna Attending Unavailable Emily Perry Referring Unavailable Diogo, Jon Chi Primary Care Unavailable Dorian ABDUL, Shanna Referring Unavailable Darron Pruitt Attending Unavailable Dorian SCREEN MAKING SUPERVISOR, Shanna Referring Unavailable Dorian ABDUL, Shanna Attending Unavailable Care Physician, No Primary Primary Care Unava ilable Allergies Allergy Classification Reported Allergen(s) Allergy Type Date of Onset Reaction(s) Facility (16 sources) Bacitracin; Translations: [BACITRACIN] Drug Allergy 9 Rash [facility] (16 sources) Ciprofloxacin; Translations: [CIPROFLOXACIN] Drug Allergy 9 Hives, Swelling [facility] (16 sources) metroNIDAZOLE; Translations: [METRONIDAZOLE] Drug Allergy 9 Hives, Swelling [facility] (8 sources) Neomycin Drug Allergy 2 Rash [facility] (8 sources) Polymyxin B Drug Allergy 2 Rash [facility] (8 sources) bee venom protein (honey bee) Allergy to substance 2 Anaphylaxis [facility] (8 sources) bacitracin / neomycin / polymyxin b; Translations: [NEOMYCIN-BACITRA KATHERIN-POLYMYXIN] Drug Allergy 6 Intolerance [facility] Work Phone: (8 sources) Bacitracin / Polymyxin B; Translations: [BACITRACIN-POLYM YXIN B] Drug Allergy 9 Rash [facility] (1 source) Bacitracin Drug Allergy 4 [facility] (1 source) Ciprofloxacin Drug Allergy 4 [facility] (1 source) metroNIDAZOLE Drug Allergy 4 [facility] (1 source) Neomycin Drug Allergy 4 [facility] (1 source) polymyxin B Drug allergy (disorder) 4 [facility] (1 source) bee venom protein (honey bee) Drug allergy (disorder) 4 [facility] Medications Current Medications Medication Drug Class(es) Dates Sig (Normalized) Sig (Original) acetaminophen 325 mg / HYDROcodone bitartrate 5 mg oral tablet (19 sources) Opioid Agonist Start: 01-27-2022 take 1 tablet by mouth every six hours as needed for pain Hydrocodone-Aceta minophen 5-325 mg tablet Active 1 {tbl} PO EVERY 6 HOURS NEEDED as needed for Pain 10 3 January 27, 2022 Start: 01-27-2022 take 1 tablet by milton th every six hours as needed Hydrocodone-Acetaminophen Active 1 TABLE T PO EVERY 6 HOURS NEEDED 10 January 27, 2022 Start: 11-02-2021 End: 05-03-2022 Hydrocodone-Acetaminophen 5- 325 mg tablet Discontinued 0.333 {tbl} PO ONCE as needed November 02, 2021 12:00am May 03, 2022 2:01pm Start: 11-02-2021 End: 05-03-2022 take 0.333 tablet by mouth once Hydrocodone-Acetaminophen Discontinued 0.333 TABLET PO ONCE November 02, 2021 12:00am May 03, 2022 2:01pm take 1 tablet by milton th every six hours as needed acetaminophen-HYDROcodone (VICODIN) 5-50 0 mg tablet Take 1 tablet by mouth every 6 hours as needed. 1/2 tablet as needed. Active Comment on above: Take 1 tablet by milton th every 6 hours as needed. 1/2 tablet as needed. 24 hr dilTIAZem hydrochloride 240 mg extended release oral capsule (20 sources) Calcium Channel Naika Start: 11-16-2023 End: 08-08-2024 take 1 capsule by mouth once daily Diltiazem Hcl 240 mg capsule,extended release 24hr Active 240 mg PO DAILY August 08, 2024 12:01pm Start: 05-25-2016 take 1 tablet by milton th once daily CARDIZEM CD 120 MG [id number] One tablet by mouth daily DILTIAZEM HCL COATED BEADS [id number] Zane Sotelo MD Start: 05-25-2016 take 1 tablet by milton th once daily CARDIZEM CD 120 MG [id number] One tablet by mouth daily DILTIAZEM HCL COATED BEADS [id number] Zane Sotelo MD Start: 04-25-2016 End: 11-16-2023 take 1 capsule by mouth once daily Diltiazem Hcl 120 mg capsule,extended release 24hr Discontinued 120 mg PO DAILY June 05, 2018 10:44am September 05, 2018 3:05pm Comment on above: Take 120 mg by mouth once daily. meloxicam 7.5 mg oral tablet (4 sources) Nonsteroidal Anti-inflammatory Drug Start: 04-11-2024 take 1 tablet by mouth once daily as needed Meloxicam 7.5 mg tablet Active 7.5 mg PO daily as needed April 11, 2024 1:00am Start: 03-18-2022 take 1 tablet by milton th once daily meloxicam (MOBIC) 15 mg tablet Take 1 tablet by mouth once daily. 30 tablet 1 03/18/2022 Active Comment on above: Take 1 tablet by milton th once daily. Completed/Discontinued Medications Medication Drug Class(es) Dates Sig (Normalized) Sig (Original) apixaban 5 mg oral tablet (9 sources) Factor Xa Inhibitor Start: 11-16-2023 End: 03-19-2024 take 1 tablet by mouth twice daily Apixaban (Eliquis) 5 mg tablet Discontinued 5 mg PO TWICE A DAY March 16, 2024 5:26pm March 19, 2024 10:15am aspirin 81 mg delayed release oral tablet (16 sources) Platelet Aggregation Inhibitor, Nonsteroidal Anti-inflammatory Drug Start: 04-04-2018 End: 12-15-2020 take 1 tablet by mouth once daily Aspirin 81 MG tablet,delayed release (DR/EC) Discontinued 81 mg PO DAILY September 05, 2018 3:05pm December 15, 2020 11:04am atorvastatin 10 mg oral tablet (9 sources) HMG-CoA Reductase Inhibitor Start: 11-03-2023 End: 03-19-2024 take 1 tablet by mouth at bedtime Atorvastatin 10 mg tablet Discontinued 10 mg PO AT BEDTIME March 16, 2024 3:57pm March 19, 2024 10:15am benzonatate 100 mg oral capsule (6 sources) Non-narcotic Antitussive Start: 11-29-2020 take 2 capsules by mouth every eight hours as needed for cough and cough benzonatate (TESSALON PERLE) 100 mg capsule Indications: Cough Take 2 capsules by mouth three times daily as needed. 30 capsule 0 11/29/2020 Active Comment on above: Take 2 capsules by m out three times daily as needed. 12 hr buPROPion hydrochloride 200 mg extended release oral tablet (20 sources) Aminoketone Start: 08-15-2017 End: 03-13-2018 take 2 tablets by mouth twice daily Bupropion Hcl 200 mg tablet extended release 12 hr Discontinued 100 mg PO TWICE A DAY August 15, 2017 12:41pm March 13, 2018 3:49pm Start: 08-15-2017 End: 03-13-2018 take 100 mg by mouth twice daily Bupropion Hcl Discontinued 100 MG PO TWICE A DAY August 15, 2017 12:41pm March 13, 2018 3:49pm Start: 05-25-2016 take 2 tablets by mo [facility] twice daily BUPROPION HCL 100 MG TABS Two tablets by mouth twice daily BUPROPION HCL [id number] Zandra Coates RN Start: 08-10-2005 End: 08-15-2017 take 1 tablet by mouth twice daily Bupropion Hcl 200 MG tablet Discontinued 200 mg PO TWICE A DAY March 16, 2013 12:00am August 15, 2017 12:41pm cholecalciferol 0.025 mg oral tablet (5 sources) Vitamin D take 1 tablet by mouth once daily cholecalciferol (VITAMIN D3) 1,000 unit tab tablet Take 1,000 Units by mouth once daily. 0 Active Comment on above: Take 1,000 Units by mouth once daily. ciprofloxacin 500 mg oral tablet (8 sources) Quinolone Antimicrobial Start: 016 End: take 1 tablet by mouth twice daily Ciprofloxacin Hcl 500 MG tablet Discontinued 500 mg PO TWICE A DAY April 25, 2016 1:00am August 15, 2017 12:40pm clobetasol propionate 0.0005 mg/mg topical ointment (7 sources) Corticosteroid Start: 022 End: Clobetasol 0.05 % ointment Discontinued 1 NMA TOPICAL .COMPLEX November 03, 2021 12:00am May 03, 2022 2:01pm 1 applic topical apply bid X 2 weeks, daily X 2 weeks then prn. Small amount and massge in; docusate sodium 100 mg oral tablet (16 sources) Start: 017 End: 017 take 1 tablet by mouth twice daily as needed DOCUSATE SODIUM 100 MG TABS One tablet by mouth twice daily as needed DOCUSATE SODIUM [id number] Shane Gilliam ORNAMENTAL METAL ERECTOR APPRENTICE-C Start: 04-25-2016 End: 08-15-2017 take 1 capsule by mouth twice daily as needed for constipation Docusate Sodium 100 MG capsule Discontinued 100 mg PO TWICE A DAY as needed for Constipation April 25, 2016 4:08pm August 15, 2017 12:40pm estradiol 0.1 mg/ml vaginal cream (20 sources) Estrogen Start: 12-02-2021 End: 04-11-2024 Estradiol 0.01 % (0.1 mg/gram) cream Discontinued 0 VAGINAL DAILY 42.5 December 02, 2021 12:00am April 11, 2024 2:07pm small amount vaginally daily; Start: 12-02-2021 Estradiol Acti ve 0 VAGINAL DAILY 42.5 December 02, 2021 12:00am small amount vaginally daily; Start: 04-23-2016 End: 08-15-2017 take 1 tablet by mouth once daily Estradiol 0.5 MG tablet Discontinued 0.5 mg PO DAILY April 23, 2016 1:00am August 15, 2017 12:41pm fenofibrate 145 mg oral tablet (20 sources) Peroxisome Proliferator Receptor alpha Agonist Start: 04-23-2016 End: 05-01-2021 take 1 tablet by mouth once daily Fenofibrate Nanocrystallized 145 MG tablet Discontinued 145 mg PO DAILY April 23, 2016 1:00am May 01, 2021 4:26pm FENOFIBRATE MICR ONIZED ORAL Take by mouth. Active FENOFIBRATE MICR ONIZED ORAL Take by mouth. 0 Active Comment on above: Take by mouth. Take 1 tablet by milton th once daily. hydroCHLOROthiazide 12.5 mg / quinapril 20 mg oral tablet (20 sources) Thiazide Diuretic, Angiotensin Converting Enzyme Inhibitor Start: 06-07-19 17 take 1 tablet by mouth once daily ACCURETIC 20-12.5 MG TABS One tablet by mouth daily QUINAPRIL-HYDROCHL OROTHIAZIDE [id number] Shane WHATLEY-Babak Start: 05-25-2016 take 1 tablet by milton th once daily ACCURETIC 20-12.5 MG TABS One tablet by mouth daily QUINAPRIL-HYDROCHLOROTHIAZIDE [id number] Zandra Coates RN Start: 05-25-2016 End: 06-07-2016 take 1 tablet by mouth once daily ACCURETIC 20-12.5 MG TABS One tablet by mouth daily QUINAPRIL-HYDROCHLOROTHIAZIDE [id number] Shane WHATLEY-C Start: 04-23-2016 End: 12-15-2020 take 1 tablet by mouth once daily Quinapril-Hydrochlorothiazide Discontinu ed 1 TABLET PO DAILY 0 September 12, 2018 11:09am December 15, 2020 11:05am Hold if SBP Start: 06-04-2010 End: 12-15-2020 Quinapril-Hydrochlorothiazid e 1 TAB tablet Discontinued 1 {tbl} PO DAILY 0 September 12, 2018 11:09am December 15, 2020 11:05am Hold if SBP Comment on above: Take one(1) tablet d aily. loratadine 10 mg oral tablet (16 sources) Start: 05-07-2021 End: 10-06-2021 take 1 tablet by mouth once daily as needed for headache Loratadine 10 mg tablet Discontinued 10 mg PO DAILY as needed for headache May 07, 2021 1:00am October 06, 2021 2:16pm Start: 02-26-2021 End: 05-01-2021 take 1 tablet by mouth once daily Loratadine 10 mg tablet Discontinued 10 mg PO DAILY February 26, 2021 12:00am May 01, 2021 4:10pm losartan potassium 100 mg oral tablet (20 sources) Angiotensin 2 Receptor Anika Start: 12-28-2022 End: 04-11-2024 take 1 tablet by mouth once daily Losartan 100 mg tablet Discontinued 100 mg PO DAILY September 14, 2023 4:33pm April 11, 2024 2:27pm Start: 05-01-2021 End: 12-28-2022 take 1 tablet by mouth once daily Losartan 50 mg tablet Discontinued 50 mg PO DAILY August 04, 2022 11:35am December 28, 2022 10:08am Comment on above: Take 50 mg by mouth once daily. medroxyPROGESTERone acetate 2.5 mg oral tablet (19 sources) Progestin Start : 04-23 End: 03-13 take 1 tablet by mouth once daily Medroxyprogesterone 2.5 MG tablet Discontinued 2.5 mg PO DAILY April 23, 2016 1:00am March 13, 2018 3:49pm metroNIDAZOLE 500 mg oral tablet (8 sources) Nitroimidazole Antimicrobial Start : 04-25 End: 08-15 take 1 tablet by mouth every eight hours Metronidazole 500 MG tablet Discontinued 500 mg PO Q8H April 25, 2016 1:00am August 15, 2017 12:40pm naproxen 500 mg oral tablet (8 sources) Nonsteroidal Anti-inflammatory Drug Start : 02-26 End: 05-01 take 1 tablet by mouth twice daily as needed for pain Naproxen 500 mg tablet Discontinued 500 mg PO TWICE A DAY as needed for pain 60 February 26, 2021 12:00am May 01, 2021 4:10pm predniSONE 20 mg oral tablet (16 sources) Start : 09-02 End: 09-12 take 2 tablets by mouth once daily at mealtime Prednisone (Deltasone) 20 MG tablet Discontinued 40 mg PO DAILY September 05, 2018 3:05pm September 12, 2018 11:07am With food sertraline 100 mg oral tablet (20 sources) Serotonin Reuptake Inhibitor Start : 03-16 End: 05-01 take 2 tablets by mouth once daily Sertraline 100 mg tablet Discontinued 200 mg PO DAILY March 13, 2018 3:50pm May 01, 2021 4:10pm Start: 03-16-2013 End: 05-01-2021 take 200 mg by mouth once daily Sertraline Discontinued 200 MG PO DAILY March 13, 2018 3:50pm May 01, 2021 4:10pm Start: 08-10-2005 sertraline (ZO LOFT) 100 mg tablet 100 mg twice daily. 03/13/2018 Active Comment on above: 100 mg twice daily. 24 hr venlafaxine 37.5 mg extended release oral capsule (5 sources) Serotonin and Norepinephrine Reuptake Inhibitor Start: 12-03-19 End: 12-31-19 take 2 tablets by mouth once daily Venlafaxine (Effexor Xr) 37.5 mg capsule,extended release 24hr Discontinued 37.5 mg PO .COMPLEX 60 December 02, 2021 12:00am December 30, 2021 11:36am 37.5 mg orally take 1 tab po X 2 weeks and may increase to 2 tabs daily if continued hotflashes; take Problems Active Problems Problem Classification Problem Date Documented Date Episodic/Chronic Abdominal pain (8 sources) Abdominal pain; Translations: [Unspecified abdominal pain] 03-23-2021 Episodic Cardiac and circulatory congenital anomalies (10 sources) Coarctation of aorta; Translations: [Coarctation of aorta] Chronic Comment on above: Redemonstration of a ortic coarctation distal to the origin of the leftsubclavian artery with diameter at area of narrowing measuring 1.9 cm,unchanged from prior. per CT 12/2020 Cardiac dysrhythmias (20 sources) Supraventricular tachycardia; Translations: [Supraventricular tachycardia] Onset: 06-04-2016 06-04-2016 Chronic Disorders of lipid metabolism (20 sources) Hyperlipidemia; Translations: [Hyperlipidemia, unspecified] Onset: 06-04-2016 06-04-2016 Chronic Diverticulosis and diverticulitis (8 sources) Diverticulitis of sigmoid colon; Translations: [Diverticulitis of large intestine without perforation or abscess without bleeding] 08-05-2018 Chronic Essential hypertension (18 sources) Hypertensive disorder; Translations: [Essential hypertension] Onset: 06-07-2016 06-07-2016 Chronic Fracture of lower limb (10 sources) Fracture of distal end of fibula; Translations: [Other fracture of upper and lower end of unspecified fibula, initial encounter for closed fracture] Onset: 03-01-2022 Episodic Headache; including migraine (10 sources) Tension-type headache; Translations: [Tension-type headache, unspecified, not intractable] Chronic Headache; including migraine (10 sources) Sinus headache; Translations: [Sinus headache] Episodic Menopausal disorders (9 sources) Atrophic vaginitis; Translations: [Postmenopausal atrophic vaginitis] Chronic Comment on above: estradiol cream Osteoarthritis (1 source) Osteoarthritis of left knee joint; Translations: [Unilateral primary osteoarthritis, left knee] Chronic Other circulatory disease (8 sources) Low blood pressure; Translations: [Hypotension, unspecified] 03-23-2021 Episodic Other connective tissue disease (5 sources) Trochanteric bursitis; Translations: [Trochanteric bursitis, left hip] 04-10-2024 Episodic Other connective tissue disease (1 source) Trochanteric bursitis, left hip; Translations: [Trochanteric bursitis, left hip] Onset: 06-18-2024 Episodic Other injuries and conditions due to external causes (8 sources) Angioedema; Translations: [Angioneurotic edema, initial encounter] 03-23-2021 Episodic Other lower respiratory disease (8 sources) Dyspnea on exertion; Translations: [Dyspnea, unspecified] 09-11-2018 Episodic Other lower respiratory disease (8 sources) Cough; Translations: [Cough] 03-23-2021 Episodic Other non-traumatic joint disorders (1 source) Pain in left knee; Translations: [Pain in joint, lower leg] Episodic Other non-traumatic joint disorders (5 sources) Hip pain; Translations: [Pain in left hip] 04-10-2024 Episodic Other non-traumatic joint disorders (1 source) Pain in right shoulder; Translations: [Pain in right shoulder] Onset: 08-23-2024 Episodic Other non-traumatic joint disorders (1 source) Pain in left hip; Translations: [Pain in left hip] Onset: 06-18-2024 Episodic Other screening for suspected conditions (not mental disorders or infectious disease) (3 sources) Abnormal results of kidney function studies; Translations: [Encounter for screening for osteoporosis] Onset: 06-14-2024 Episodic Other skin disorders (9 sources) Lichen sclerosus et atrophicus; Translations: [Lichen sclerosus et atrophicus] Chronic Comment on above: clobetesol Residual codes; unclassified (5 sources) Flushing; Translations: [Flushing] 12-02-2021 Episodic Comment on above: TSH, effexor Unclassified (1 source) Long-term drug therapy; Translations: [Other fpc (current) drug therapy] Onset: 02-10-2017 02-10-2017 Unclassified (4 sources) Pain of left hip; Translations: [M25.552 - Pain in left hip,M70.62 - Trochanteric bursitis, left hip] Unclassified (2 sources) Greater trochanteric bursitis of left hip Past or Other Problems Problem Classification Problem Date Documented Date Episodic/Chronic Cancer of cervix (7 sources) Carcinoma in situ of uterine cervix; Translations: [Carcinoma in situ of cervix, unspecified] Onset: 07-12-2006 07-12-2006 Episodic Cardiac dysrhythmias (5 sources) Palpitations; Translations: [Palpitations] Onset: 06-07-2016 06-07-2016 Episodic Other aftercare (2 sources) Other local intermodal truck driver (current) drug therapy; Translations: [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 Sotelo [facility] Unclassified (4 sources) Family history of ischemic heart disease and other diseases of the circulatory system; Translations: [Family history of ischemic heart disease and other diseases of the circulatory system] Onset: 06-07-2016 06-07-2016 Episodic Results Test Name Value Interpretation Reference Range Facility Shoulder min 2 Viewson 08-20 Shoulder min 2 Views [facility] [address] [place], [place] [id number] Shoulder min 2 Views MR#: [id number] Acct: [id number] Name: YAA BENITEZ Rep #: [id number] : 1950 F 74 From: Wesley Ortiz i, DO PCP: Marvel Tirado Babak SCREEN MAKING SUPERVISOR-C Status: REG CLI Study: Shoulder min 2 Views Date of Exam: 08/20/24 Exam# [id number] Ordering Dr: Marvel Tirado SCREEN MAKING SUPERVISORKaro C PROCEDURE: Right shoulder radiographs, four views 08/20/2024 REASON FOR EXAM: PAIN IN RIGHT SHOULDER TECHNIQUE: Four views of the right shoulder were obtained. COMPARISON: None available FINDINGS: Four views of the right shoulder were obtained. Bones are osteopenic. Included right lung clear. No acute fracture or dislocation of the right shoulder. Mild degenerative change of the right acromioclavicular joint. No AC joint widening. Subacromial space is maintained. Moderate degenerative change right glenohumeral joint. RAD/Shoulder min 2 Views IMPRESSION: Osteopenia. No acute abnormality of the right shoulder. Moderate degenerative change right glenohumeral joint. Mild degenerative change right acromioclavicular joint. Reading Location: [facility] CC: Marvel [facility] SCREEN MAKING SUPERVISOR-C Candida Bench Examiner: Signed Normal [facility] Anion gap in Serum or Plasma Ordered By: Marvel Tirado on 07-18-2024 Anion gap [Moles/Vol] 13 mmol/L 5-15 [facility] BUN/creatinine ratioOrdered By: Marvel Tirado on 07-18-2024 Urea nitrogen/Creatinine [Mass ratio] 14.2 mg/mg 10- [facility] Basic Metabolic Profile (BMP )on 07-18-2024 BUN/CRE 14.2 RATIO Normal -20 [facility] Comment on above: Performed By: #### L 500.2500 ####[facility] [address] [place], [address] Calcium [Mass/Vol] 9.8 mg/dL Normal 7.6-11.0 [facility] Comment on above: Performed By: #### L 500.2500 ####[facility] [address] [place], [address] Chloride [Moles/Vol] 105 mmol/L Normal 98-108 [facility] Comment on above: Performed By: #### L 500.2500 ####[facility] [address] [place], [address] CO2 [Moles/Vol] 21.2 mmol/L Normal 21.0-32.0 [facility] Comment on above: Performed By: #### L 500.2500 ####[facility] [address] [place], [address] Creatinine [Mass/Vol] 0.99 mg/dL Normal 0.70-1.20 [facility] Comment on above: Performed By: #### L 500.2500 ####[facility] [address] [place], [address] GAP 13 Normal 5-15 [facility] Comment on above: Performed By: #### L 500.2500 ####[facility] [address] [place], [address] GFR/1.73 sq M.predicted among non-blacks MDRD (S/P/Bld) [Vol rate/Area] 59 mL/min/{1.73_m2} Low >60 [facility] Comment on above: Result Comment: mL/m in/1.73m2 CKD-EPI Creatinine Equation (2020) Performed By: #### L 500.2500 ####[facility] [address] [place], [address] Glucose [Mass/Vol] 97 mg/dL Normal 70-99 [facility] Comment on above: Performed By: #### L 500.2500 ####[facility] [address] [place], [address] Potassium [Moles/Vol] 4.8 mmol/L Normal 3.3-5.1 [facility] Comment on above: Performed By: #### L 500.2500 ####[facility] [address] [place], [address] Sodium [Moles/Vol] 139 mmol/L Normal 133-145 [facility] Comment on above: Performed By: #### L 500.2500 ####[facility] [address] [place], [address] Urea nitrogen [Mass/Vol] 14 mg/dL Normal 4-19 [facility] Comment on above: Performed By: #### L 500.2500 ####[facility] [address] [place], [address] Carbon dioxide, total [Moles /volume] in Central venous bloodOrdered By: Marvel Tirado on 07-18-2024 CO2 [Moles/Vol] 21.2 mmol/L 21.0-32.0 [facility] Chloride assayOrdered By: Abram Tirado on 07-18-2024 Chloride [Moles/Vol] 105 mmol/L 98-108 [facility] GFR/1.73 sq M.predicted jorge g non-blacks MDRD (S/P/Bld) [Vol rate/Area]Ordered By: Marvel Tirado on 07-18-2024 Estimated GFR (MDRD) Non-Af Amer 59 Low >60 [facility] Comment on above: mL/min/1.73m2 CKD-EP I Creatinine Equation (2020) Potassium (Unsp spec) [Mass/ Vol]Ordered By: Marvel Tirado on 07-18-2024 Potassium [Moles/Vol] 4.8 mmol/L 3.3-5.1 [facility] Serum creatinine measurement (mass/volume)Ordered By: Marvel Tirado on 07-18-2024 Creatinine [Mass/Vol] 0.99 mg/dL 0.70-1.20 [facility] Serum glucose measurement (m ass/volume)Ordered By: Marvel Tirado on 07-18-2024 Glucose [Mass/Vol] 97 mg/dL 70-99 [facility] Serum or plasma calcium iftikhar urement (mass/volume)Ordered By: Marvel Tirado on 07-18-2024 Calcium [Mass/Vol] 9.8 mg/dL 7.6-11.0 [facility] Serum or plasma urea nitroge n measurement (mass/volume)Ordered By: Marvel Tirado on 07-18-2024 Urea nitrogen [Mass/Vol] 14 mg/dL 4-19 [facility] Sodium levelOrdered By: Sasha Tirado on 07-18-2024 Sodium [Moles/Vol] 139 mmol/L 133-145 [facility] Bone density reportOrdered B y: Teddy Gastelum on 07-10-2024 Study report Skeletal system DXA [facility] Imaging Services [address] [place] [address] Dexa Bone Density Study MR#: [id number] Acct: [id number] Name: YAA BENITEZ Rep #: [id number] : 1950 F 74 From: Terry Gastelum MD PCP: Marvel Tirado [facility] SCREEN MAKING SUPERVISOR-C Status: REG CLI Study:Dexa Bone Density Study Date of Exam: 07/10/24 Exam# [id number] Ordering Dr: Liam Tirado erin [facility] SCREEN MAKING SUPERVISOR-C PROCEDURE: DEXA BONE DENSITY STUDY REASON FOR EXAM: F, age 74 y/o . Postmenopausal. TECHNIQUE: DEXA scan of the lumbar spine and both hips. COMPARISON: None. FINDINGS: Lumbar Spine (L1-L4): g/cm2 (0.892)/T-score (-1.1)/Z-score (1.3) findings are suggestive of osteopenia with a low fracture risk. Left Femur Total: g/cm2 (0.723)/T-score (-1.8)/Z-score (0.1) Left Femoral Neck: g/cm2 (0.717)/T-score (-1.2)/Z-score (1.0) Right Femur Total: g/cm2 (0.734)/T-score (-1.7)/Z-score (0.1) Right Femoral Neck: g/cm2 (0.763)/T-score (-0.8)/Z-score (1.4) BD/Dexa Bone Density Study IMPRESSION: The patient is considered osteopenic as outlined below according to World Gerardo Organization (WHO) criteria with a moderate fracture risk. Reading Location: [id number] CC: Marvel Babak SCREEN MAKING SUPERVISOR-Bbaak Tirado ~ Bench Examiner: Signed [facility] Dexa Bone Density Studyon Dexa Bone Density Study [facility] Imaging Services [address] [place], [place] [id number] Dexa Bone Density Study MR#: [id number] Acct: [id number] Name: YAA BENITEZ Rep #: [id number] : 1950 F 74 From: Teddy arroyo MD PCP: Marvel Tirado Babak SCREEN MAKING SUPERVISORDave Status: REG CLI Study: Dexa Bone Density Study Date of Exam: 07/10/24 Exam# [id number] Ordering Dr: Marvel Tirado Babak SCREEN MAKING SUPERVISORKaro C PROCEDURE: DEXA BONE DENSITY STUDY REASON FOR EXAM: F, age 74 y/o . Postmenopausal. TECHNIQUE: DEXA scan of the lumbar spine and both hips. COMPARISON: None. FINDINGS: Lumbar Spine (L1-L4): g/cm2 (0.892)/T-score (-1.1)/Z-score (1.3) findings are suggestive of osteopenia with a low fracture risk. Left Femur Total: g/cm2 (0.723)/T-score (-1.8)/Z-score (0.1) Left Femoral Neck: g/cm2 (0.717)/T-score (-1.2)/Z-score (1.0) Right Femur Total: g/cm2 (0.734)/T-score (-1.7)/Z-score (0.1) Right Femoral Neck: g/cm2 (0.763)/T-score (-0.8)/Z-score (1.4) BD/Dexa Bone Density Study IMPRESSION: The patient is considered osteopenic as outlined below according to World Gerardo Organization (WHO) criteria with a moderate fracture risk. Reading Location: [id number] CC: [facility] SCREEN MAKING SUPERVISOR-C Beam Bench Examiner: Signed Normal [facility] Absolute neutrophil countOrd ered By: Marvel Tirado on 05-24-2024 Neutrophils (Bld) [#/Vol] 4.6 10*3/uL 2.0-7.7 [facility] Albumin to globulin ratioOrd ered By: Abramdanna Tirado on 05-24-2024 Albumin/Globulin [Mass ratio] 0.7 {ratio} Low 0.9-2.4 [facility] Basophil percentageOrdered B y: Marvel Tirado on 05-24-2024 Basophils/100 WBC (Bld) 1.2 % High 0-1 [facility] Bilirubin, totalOrdered By: Marvel Tirado on 05-24-2024 Bilirubin [Mass/Vol] 0.50 mg/dL 0.20-1.00 [facility] Comment on above: For patients on eltr ombopag therapy, use of Dimension Odin TBIL is not recommended. Blood urea nitrogen (BUN)/cr eatinine ratioOrdered By: Marvel Tirado on 05-24-2024 Urea nitrogen/Creatinine [Mass ratio] 13.8 mg/mg 10-20 [facility] CBC W/Diff, Automatedon Absolute Lymph 1.38 X10 3/uL Normal 0.83-4.51 [facility] Comment on above: Performed By: #### L 501.9520, L500.4050, L100.0100 ####[facility] [address] [place], [address] Absolute Neut 4.6 X10 3/uL Normal 2.0-7.7 [facility] Comment on above: Performed By: #### L 501.9520, L500.4050, L100.0100 ####[facility] [address] [place], [address] Basophils/100 WBC (Bld) 1.2 % High 0-1 [facility] Comment on above: Performed By: #### L 501.9520, L500.4050, L100.0100 ####[facility] [address] [place], [address] Eosinophils/100 WBC (Bld) 2.5 % Normal 0-5 [facility] Comment on above: Performed By: #### L 501.9520, L500.4050, L100.0100 ####[facility] [address] [place], [address] Erythrocyte distribution width (RBC) [Ratio] 13.2 % Normal 11.6-14.6 [facility] Comment on above: Performed By: #### L 501.9520, L500.4050, L100.0100 ####[facility] [address] [place], [address] Hematocrit (Bld) [Volume fraction] 47.7 % High 37-47 [facility] Comment on above: Performed By: #### L 501.9520, L500.4050, L100.0100 ####[facility] [address] [place], [address] Hemoglobin (Bld) [Mass/Vol] 15.8 g/dL High 12.0-15.0 [facility] Comment on above: Performed By: #### L 501.9520, L500.4050, L100.0100 ####[facility] [address] [place], [address] IG% 0.900 Normal 0.0-0.9 [facility] Comment on above: Result Comment: IG% - Immature Granulocytes (promyelocytes, myelocytes and metamyelocytes) > 1% indicates that a LEFT SHIFT is Present. Performed By: #### L 501.9520, L500.4050, L100.0100 ####[facility] [address] [place], [address] Lymphocytes/100 WBC (Bld) 20.2 % Normal 19-41 [facility] Comment on above: Performed By: #### L 501.9520, L500.4050, L100.0100 ####[facility] [address] [place], [address] MCH (RBC) [Entitic mass] 31.2 pg Normal 27.0-32.0 [facility] Comment on above: Performed By: #### L 501.9520, L500.4050, L100.0100 ####[facility] [address] [place], [address] MCHC (RBC) [Mass/Vol] 33.1 g/dL Normal 32-36 [facility] Comment on above: Performed By: #### L 501.9520, L500.4050, L100.0100 ####[facility] [address] [place], [address] MCV (RBC) [Entitic vol] 94.1 fL Normal 81-99 [facility] Comment on above: Performed By: #### L 501.9520, L500.4050, L100.0100 ####[facility] [address] [place], [address] Monocytes/100 WBC (Bld) 7.7 % Normal 0-10 [facility] Comment on above: Performed By: #### L 501.9520, L500.4050, L100.0100 ####[facility] [address] [place], [address] Neutrophils/100 WBC (Bld) 67.5 % Normal 47-70 [facility] Comment on above: Performed By: #### L 501.9520, L500.4050, L100.0100 ####[facility] [address], [address] Nucleated RBC (Bld) [#/Vol] 0 10*3/uL Normal 0-5 [facility] Comment on above: Performed By: #### L 501.9520, L500.4050, L100.0100 ####[facility] [address] [place], [address] Platelet mean volume (Bld) [Entitic vol] 9.9 fL Normal 6.2-12.0 [facility] Comment on above: Performed By: #### L 501.9520, L500.4050, L100.0100 ####[facility] [address] [place], [address] Platelets (Bld) [#/Vol] 310 10*3/uL Normal 150-450 [facility] Comment on above: Performed By: #### L 501.9520, L500.4050, L100.0100 ####[facility] [address] [place], [address] RBC (Bld) [#/Vol] 5.07 10*6/uL Normal 4.2-5.4 [facility] Comment on above: Performed By: #### L 501.9520, L500.4050, L100.0100 ####[facility] [address], [address] RDW SD 45.7 fl High 35.1-43.9 [facility] Comment on above: Performed By: #### L 501.9520, L500.4050, L100.0100 ####[facility] [address] [place], [address] WBC (Bld) [#/Vol] 6.8 10*3/uL Normal 4.4-11.0 [facility] Comment on above: Performed By: #### L 501.9520, L500.4050, L100.0100 ####[facility] [address] [place], [address] Carbon dioxide measurementOr dered By: Zebulun Beam on 05-24-2024 CO2 [Moles/Vol] 28.0 mmol/L 21.0-32.0 [facility] Chloride measurementOrdered By: Zebulun Beam on 05-24-2024 Chloride [Moles/Vol] 104 mmol/L 98-107 [facility] Comprehensive Metabolic Prof ilon 05-24-2024 Albumin [Mass/Vol] 3.2 g/dL Normal 3.2-5.0 [facility] Comment on above: Order Comment: TSH Performed By: #### L 501.9520, L500.4050, L100.0100 ####[facility] [address] [place], [address] Albumin/Globulin [Mass ratio] 0.7 {ratio} Low 0.9-2.4 [facility] Comment on above: Order Comment: TSH Performed By: #### L 501.9520, L500.4050, L100.0100 ####[facility] [address] [place], [address] ALK P 78 U/L Normal 45-117 [facility] Comment on above: Order Comment: TSH Performed By: #### L 501.9520, L500.4050, L100.0100 ####[facility] [address] [place], [address] ALT [Catalytic activity/Vol] 18 U/L Normal 13-56 [facility] Comment on above: Order Comment: TSH Performed By: #### L 501.9520, L500.4050, L100.0100 ####[facility] [address] [place], [address] AST [Catalytic activity/Vol] 19 U/L Normal 15-37 [facility] Comment on above: Order Comment: TSH Performed By: #### L 501.9520, L500.4050, L100.0100 ####[facility] [address] [place], [address] Bilirubin [Mass/Vol] 0.50 mg/dL Normal 0.20-1.00 [facility] Comment on above: Order Comment: TSH Result Comment: For patients on eltrombopag therapy, use of Dimension Odin TBIL is not recommended. Performed By: #### L 501.9520, L500.4050, L100.0100 ####[facility] [address] [place], [address] BUN/CRE 13.8 RATIO Normal 10-20 [facility] Comment on above: Order Comment: TSH Performed By: #### L 501.9520, L500.4050, L100.0100 ####[facility] [address] [place], [address] CA,Total 10.0 mg/dL Normal 8.5-10.1 [facility] Comment on above: Order Comment: TSH Performed By: #### L 501.9520, L500.4050, L100.0100 ####[facility] [address] [place], [address] Chloride [Moles/Vol] 104 mmol/L Normal 98-107 [facility] Comment on above: Order Comment: TSH Performed By: #### L 501.9520, L500.4050, L100.0100 ####[facility] [address] [place], [address] CO2 [Moles/Vol] 28.0 mmol/L Normal 21.0-32.0 [facility] Comment on above: Order Comment: TSH Performed By: #### L 501.9520, L500.4050, L100.0100 ####[facility] [address] [place], [address] Creatinine [Mass/Vol] 1.30 mg/dL High 0.55-1.02 [facility] Comment on above: Order Comment: TSH Result Comment: The validity of the calculated GFR GFRAA in patients over 70 years has not been determined. Clinical correlation is essential. Performed By: #### L 501.9520, L500.4050, L100.0100 ####[facility] [address] [place], [address] EST GFR - AA 51 mL/min Low >60 [facility] Comment on above: Order Comment: TSH Result Comment: Afri can [place] GFR Calc Performed By: #### L 501.9520, L500.4050, L100.0100 ####[facility] [address] [place], [address] GAP 5 Normal 5-15 [facility] Comment on above: Order Comment: TSH Performed By: #### L 501.9520, L500.4050, L100.0100 ####[facility] [address] [place], [address] GFR/1.73 sq M.predicted among non-blacks MDRD (S/P/Bld) [Vol rate/Area] 42 mL/min/{1.73_m2} Low >60 [facility] Comment on above: Order Comment: TSH Result Comment: Non- GFR Calc Performed By: #### L 501.9520, L500.4050, L100.0100 ####[facility] [address] [place], [address] Globulin (S) [Mass/Vol] 4.4 g/dL High 2.2-4.2 [facility] Comment on above: Order Comment: TSH Performed By: #### L 501.9520, L500.4050, L100.0100 ####[facility] [address] [place], [address] Glucose [Mass/Vol] 110 mg/dL High 74-106 [facility] Comment on above: Order Comment: TSH Result Comment: Fast ing Glucose result from 100 to 125 mg/dL suggests IMPAIRED HOMEOSTASIS per A.D.A. criteria. Performed By: #### L 501.9520, L500.4050, L100.0100 ####[facility] [address] [place], [address] Potassium [Moles/Vol] 4.9 mmol/L Normal 3.5-5.1 [facility] Comment on above: Order Comment: TSH Performed By: #### L 501.9520, L500.4050, L100.0100 ####[facility] [address] [place], [address] Sodium [Moles/Vol] 137 mmol/L Normal 136-145 [facility] Comment on above: Order Comment: TSH Performed By: #### L 501.9520, L500.4050, L100.0100 ####[facility] [address] [place], [address] T PROT 7.6 g/dL Normal 6.4-8.2 [facility] Comment on above: Order Comment: TSH Performed By: #### L 501.9520, L500.4050, L100.0100 ####[facility] [address] [place], [address] Urea nitrogen [Mass/Vol] 18 mg/dL Normal 7-18 [facility] Comment on above: Order Comment: TSH Performed By: #### L 501.9520, L500.4050, L100.0100 ####[facility] [address] [place], [address] Eosinophil percentageOrdered By: petey Tirado on 05-24-2024 Eosinophils/100 WBC (Bld) 2.5 % 0-5 [facility] Erythrocyte distribution wid th ratioOrdered By: [facility] on 05-24-2024 Erythrocyte distribution width (RBC) [Ratio] 13.2 % 11.6-14.6 [facility] Erythrocyte distribution wid th standard deviationOrdered By: [facility] on 05-24-2024 Erythrocyte distribution width (RBC) [Entitic vol] 45.7 fL High 35.1-43.9 [facility] Estimated glomerular filtrat ion rate (GFR) AmericanOrdered By: rafiaasia Tirado on 05-24-2024 Estimated GFR (MDRD) Amer 51 mL/min Low >60 [facility] Comment on above: GFR Calc Glomerular filtration rate ( GFR) estimationOrdered By: petey Tirado on 05-24-2024 Estimated GFR (MDRD) Non-Af Amer 42 mL/min Low >60 [facility] Comment on above: Non- GFR Calc Glucose measurementOrdered B y: Marvel Tirado on 05-24-2024 Glucose [Mass/Vol] 110 mg/dL High 74-106 [facility] Comment on above: Fasting Glucose resu lt from 100 to 125 mg/dL suggests IMPAIRED HOMEOSTASIS per A.D.A. criteria. Hematocrit Auto (Bld) [Volum e fraction]Ordered By: Marvel Tirado on 05-24-2024 Hematocrit (Bld) [Volume fraction] 47.7 % High 37-47 [facility] Hemoglobin measurementOrdere d By: [facility] on 05-24-2024 Hemoglobin (Bld) [Mass/Vol] 15.8 g/dL High 12.0-15.0 [facility] Immature granulocytes/100 WB C Auto (Bld)Ordered By: petey Tirado on 05-24-2024 Immature granulocytes/100 WBC (Bld) 0.900 % 0.0-0.9 [facility] Comment on above: IG% - Immature Granu locytes (promyelocytes, myelocytes and metamyelocytes) > 1% indicates that a LEFT SHIFT is Present. Laboratory - Chemistry and C hemistry - challengeOrdered By: Marvel Tirado on 05-24-2024 AST [Catalytic activity/Vol] 19 U/L 15-37 [facility] Lymphocytes Auto (Unsp spec) [#/Vol]Ordered By: Marvel Beam on 05-24-2024 Lymphocytes (Bld) [#/Vol] 1.38 10*3/uL 0.83-4.51 [facility] Lymphocytes/100 WBC Auto (Un sp spec)Ordered By: Marvel Beam on 05-24-2024 Lymphocytes/100 WBC (Bld) 20.2 % 19-41 [facility] MCV (mean corpuscular volume ) determinationOrdered By: Marvel Tirado on 05-24-2024 MCV (RBC) [Entitic vol] 94.1 fL 81-99 [facility] Mean corpuscular hemoglobin (MCH) determinationOrdered By: Marvel Tirado on 05-24-2024 MCH (RBC) [Entitic mass] 31.2 pg 27.0-32.0 [facility] Mean corpuscular hemoglobin concentration (MCHC) determinationOrdered By: Marvel Tirado on 05-24-2024 MCHC (RBC) [Mass/Vol] 33.1 g/dL 32-36 [facility] Mean platelet volume determi nationOrdered By: Marvel Tirado on 05-24-2024 Platelet mean volume (Bld) [Entitic vol] 9.9 fL 6.2-12.0 [facility] Monocyte percentageOrdered B y: Marvel Tirado on 05-24-2024 Monocytes/100 WBC (Bld) 7.7 % 0-10 [facility] Neutrophil percentageOrdered By: Marvel Tirado on 05-24-2024 Neutrophils/100 WBC (Bld) 67.5 % 47-70 [facility] Nucleated red blood cell per centageOrdered By: Marvel Beam on 05-24-2024 Nucleated RBC/100 WBC (Bld) [Ratio] 0 % 0-5 [facility] Platelet countOrdered By: Abram Tirado on 01-09-2025 Platelets (Bld) [#/Vol] 310 10*3/uL 150-450 [facility] Potassium measurementOrdered By: Marvel Tirado on 05-24-2024 Potassium [Moles/Vol] 4.9 mmol/L 3.5-5.1 [facility] RBC Auto (Bld) [#/Vol]Ordere d By: Sashalun Beam on 05-24-2024 RBC (Bld) [#/Vol] 5.07 10*6/uL 4.2-5.4 [facility] Serum anion gap measurementO rdered By: Sashalun Beam on 05-24-2024 Anion gap [Moles/Vol] 5 mmol/L 5-15 [facility] Serum globulin measurementOr dered By: Marvel Tirado on 05-24-2024 Globulin (S) [Mass/Vol] 4.4 g/dL High 2.2-4.2 [facility] Serum or plasma alanine church otransferase (ALT) measurementOrdered By: Marvel Tirado on 05-24-2024 ALT [Catalytic activity/Vol] 18 U/L 13-56 [facility] Serum or plasma albumin iftikhar urement (mass/volume)Ordered By: Marvel Tirado on 05-24-2024 Albumin [Mass/Vol] 3.2 g/dL 3.2-5.0 [facility] Serum or plasma alkaline dereck sphatase measurementOrdered By: Marvel Tirado on 05-24-2024 ALP [Catalytic activity/Vol] 78 U/L 45-117 [facility] Serum or plasma calcium iftikhar urement (mass/volume)Ordered By: Marvel Tirado on 05-24-2024 Calcium [Mass/Vol] 10.0 mg/dL 8.5-10.1 [facility] Serum or plasma creatinine m easurement (mass/volume)Ordered By: Marvel Tirado on 05-24-2024 Creatinine [Mass/Vol] 1.30 mg/dL High 0.55-1.02 [facility] Comment on above: The validity of the calculated GFR & GFRAA in patients over 70 years has not been determined. Clinical correlation is essential. Serum or plasma urea nitroge n measurement (mass/volume)Ordered By: Marvel Tirado on 05-24-2024 Urea nitrogen [Mass/Vol] 18 mg/dL 7-18 [facility] Sodium levelOrdered By: Sasha clay Beam on 05-24-2024 Sodium [Moles/Vol] 137 mmol/L 136-145 [facility] TSH QnOrdered By: Marvel Be am on 05-24-2024 Thyroid Stimulating Hormone (TSH) 3.520 uIU/mL 0.358-3.740 [facility] Thyroid Stim Hormone (TSH)on 05-24-2024 TSH 3.520 uIU/mL Normal 0.358-3.740 [facility] Comment on above: Order Comment: TSH Performed By: #### L 501.9520, L500.4050, L100.0100 ####[facility] [address] [place], [place], [address] Total proteinOrdered By: Liam Tirado on 05-24-2024 Protein [Mass/Vol] 7.6 g/dL 6.4-8.2 [facility] White blood cell (WBC) count Ordered By: Marvel Tirado on 05-24-2024 WBC (Bld) [#/Vol] 6.8 10*3/uL 4.4-11.0 [facility] Inital Evaluation (1) - PTon 04-18-2024 Inital Evaluation (1) - PT [facility] Physical Therapy [address] [place] [address] / REHABILITATION SERVICES INITIAL EVALUATION MR#: [id number] Acct: [id number] Name: YAA BENITEZ Rep #: [id number] : 1950 74 From: Tete ABBASI Referring Dr.: Dr. Skyler Herman MD Status: R EG RCR Insurance: [employer] MED[employer]ARE SELF PAY INSURANCE Patient's Visit Information Visit Information Visit Information: YAA BENITEZ is a 74 year old F referred to Physical Therapy by Dr. Skyler Herman MD with a diagnosis of L greater troch bursitis/pain in hip. Date of Evaluation: 04/18/24 Physical Therapist: Tete Stoner, MPT Visit Plan Frequency: 2x /Week Duration: 3 Weeks Plan: 2X/ week for 3 weeks for strengthening of B hips and stairs, curb steps and sit to stand activities to improve strength. HEP: EDYTA, Michelle, S/L hip abd, sit to stands Subjective Subjective: Pt has bursitis in L hip and she got a shot in the hip. He wanted her to do PT. The shot helped a lot. Her leg does not give way now. Stairs were painful before the shot but now they are not. She is good getting up out of a chair. She does not sleep well. She like to sleep on her L side and can do that now but has been trying to sleep more on her R side also. Her balance is pretty good. She is leaving Tuesday and won't be back until the 05-02. Pain L hip pain: Pain Intensity (Out of 10): 0 Objective Objective: Gait: Walks with decrease slight stance time on the L LE. Heel and Toe raises: pt is able to heel and toe raise with no UE support Stairs: Walks up and down the steps recip using no hand rails ascending with slight veering but catches self and 1 handrail descending the step Good HS, piriformis, IT band flexibility LE MMT: R hip flex 12.3 and 11.9 R knee ext 20.2 and L 19.1 R knee flex 11.2 and L 10.9 R hip abd 11.4 and L 11.4 Palpation: no tenderness along the greater trochanter or piriformis on the L or R Good B hip AROM (FLex, ER, IR) Sit to stand with no arms 2 X 10 but struggles due to weakness Balance/Special Test Scores Lower Extremity Functional Score: 57 Goals Goal 1:: I HEP Goal Time Frame: 6-8 Weeks Goal 2:: Be able to go up and down the steps recip without veering or any hesitation Goal Time Frame: 6-8 Weeks Goal 3:: Be able to do 2 X 10 sit to stands with no UE support with no signs of weakness Rehabilitation Potential Rehabilitation Potential: Good Anticipated Interventions Patient/Client Instruction: Educate patient on: Condition and Plan of Care For the Purpose of:: To decrease pain, To increase ROM, To improve muscle performance and motor function, To improve ability to perform ADL's, To increase tolerance to activity/condition/positi on, To improve performance and independence with ADL's, To improve gait and locomotor functions, To increase flexibility/ROM and To improve endurance Therapeutic Exercise to Include: Strength training, Body mechanics, Gait and locomotor training, Active ROM and Dynamic Lumbar Stabilization For the Purpose of:: To improve muscle performance and motor function, To improve ability to perform ADL's, To improve performance and independence with ADL's, To decrease level of supervision to perform tasks, To improve ability of physical actions for home/community/work/leisu re and To increase flexibility/ROM Functional Training to Include: Gait training For the Purpose of:: To improve gait and locomotor functions Text: Thank you for the opportunity to evaluate your patient. For Medicare and Medicare HMO plans, please review the plan of care and approve it. It will need to be FAXED BACK to us at [phone] for Medicare purposes. For Medicare only, by signing this I certify the plan of care. Please let me know if there are questions or concerns regarding this plan of care. Physician Signature: Date: _ 04/18/24 1226 CC: Dr. Skyler Herman MD; No Primary Care Physician Signed Normal [facility] Cardiology Visit Reporton Cardiology Visit Report [facility] [address] [place] [address]. [address] [place] [address] OFFICE VISIT Date of Service: 04/11/24 MR#: [id number] Acct: [id number] Name: YAA BENITEZ Rep #: [id number] : 1950 Provider: SARA villafana Age/Sex: 74/F Location: [facility] Status: Signed HPI HPI History of Present Illness Details: This is a 74-year-old white female who presents today for a cardiovascular outpatient follow-up. She has a history of SVT, hypertension, and hyperlipidemia. He says that she had presented to her primary physician's office for evaluation of her fever and a cough and was told that she could not be seen. She therefore went to the urgent care and had a chest x-ray and they advised her to follow-up with a CAT scan. 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 She had previously undergone an echocardiogram which demonstrated preserved ejection fraction in 2018 as well as a left heart catheterization in 2018 for reasons that are not entirely clear which was normal. She has had a history of hypertension. She denies chest, arm, jaw, or neck discomfort. She denies palpitations. She denies bilateral lower extremity edema. She denies claudication. She denies shortness of breath with activity, shortness of breath at rest, orthopnea, or PND. She denies chronic cough. She denies significant, sudden weight gain. She denies lightheadedness, dizziness, near-syncope, or syncope. She denies blood in urine, blood in stool, or epistaxis. He denies fever with chills. She denies myalgia. She denies fatigue. Her exercise level has remained stable. Intake Vital Signs 11/03/23 14:11 04/10/24 10:14 04/11/24 13:00 04/11/24 13:15 04/11/24 13:16 Height 5 ft 5 in 5 ft 5 in 5 ft 5 in 5 ft 5 in Weight: 172 lb BMI 28.6 BP 189/82 H 176/82 H Blood Pressure Location Lt brachial Lt brachial Position Sitting Sitting Respiration 16 Pulse 73 Pulse Source NIBP Comment Automated cuff Manual BP Intake Visit Reasons: 6 M FU Triple Air Valve Tester Required: No Is patient in pain?: No Allergies bacitracin (From Neosporin (cvk-hcv-cudpy)) Allergy (Verified 04/11/24 13:06) Rash bee venom protein (honey bee) Allergy (Verified 04/11/24 13:06) Anaphylaxis ciprofloxacin (From Cipro) Allergy (Verified 04/11/24 13:06) Swelling, hives metronidazole (From Flagyl) Allergy (Verified 04/11/24 13:06) Swelling, hives neomycin (From Neosporin (qvv-bqa-muowa)) Allergy (Verified 04/11/24 13:06) Rash polymyxin B (From Neosporin (juv-wil-xjqfu)) Allergy (Verified 04/11/24 13:06) Rash Medications ???Medication ???Instructions ???Recorded ???Confirmed ???Type hydrocodone-acetaminophen 5-325mg 1 tab PO Q6H PRN PRN Pain 3 days 01/27/22 04/11/24 Rx 5mg-325mg #10 TABLETS diltiazem HCl 240 mg 240 mg PO DAILY HEART #30 caps 11/16/23 04/11/24 Rx capsule,extended release 24 hr apixaban 5 mg tablet (Eliquis) 5 mg PO BID #60 tabs 03/19/24 04/11/24 Rx atorvastatin 10 mg tablet 10 mg PO QHS #90 tabs 03/19/24 04/11/24 Rx losartan 100 mg tablet 100 mg PO DAILY #90 tabs 04/11/24 04/11/24 Rx meloxicam 7.5 mg tablet 7.5 mg PO QDAY PRN 04/11/24 04/11/24 History Ejection fraction %: 60 Have you fallen in the past year?: No PFSH Medical History Greater trochanteric bursitis of left hip Left hip pain Essential hypertension Abdominal pain Angioedema Hypotension Dyspnea on exertion Anxiety and depression Diverticulitis Hyperlipidemia SVT (supraventricular tachycardia) Surgical History History of left heart catheterization (04/13/18) H/O sinus surgery H/O tubal ligation History of cataract surgery History of bunionectomy of left great toe History of carpal tunnel release Family History Mother CVA (cerebral vascular accident) Myocardial infarction age 58 Brother CAD (coronary artery disease) CABG Father CAD (coronary artery disease) Social History household members: spouse current occupational status: retired Smoking Status: Never smoker Electronic Cigarette Use: not used second hand exposure: No alcohol intake: never substance use type: does not use caffeine: Yes Type: coffee Number of servings: 3 what type of physical activity do you participate in: none seatbelt use: always do you feel safe at home: Yes additional social history: - Sushant HINOJOSA Const Const: Negative for fatigue or weakness Eyes Eyes: Negative for change in vision ENT ENT: Negative for dizziness or balance problems (more content not included)... Normal [facility] HIP, UNI W/ Pelvis 2-3 Views on 04-10-2024 HIP, UNI W/ Pelvis 2-3 Views [facility] [address] [place] [address] HIP, UNI W/ Pelvis 2-3 Views MR#: [id number] Acct: [id number] Name: YAA BENITEZ Rep #: [id number] : 1950 F 74 From: Odilia Pete PCP: Care Physician,No Primary Status: DEP AMB Study: HIP, UNI W/ Pelvis 2-3 Views Date of Exam: Exam# [id number] Ordering Dr: Skyler Herman MD [id number] INDICATION: hip pain EXAMINATION/TECHNIQUE: X-RAY - XR Hip Unilateral with Pelvis when performed; 2-3 Views LEFT COMPARISON: No relevant prior comparison study available FINDINGS: No fracture demonstrated. Femoral heads are normal in contour. No dislocation at the hips. The joint spaces are maintained. RAD/HIP, UNI W/ Pelvis 2-3 Views IMPRESSION: No evidence of fracture. No acute findings. Electronically Signed: Odilia Marti MD at 15:57 EST Reading Location ID and State: [facility] / [place] Tel , Service support , CC: Dr. Skyler Herman MD; No Primary Care Physician Bench Examiner: Signed Normal [facility] Orthopedic Visit Reporton Orthopedic Visit Report [facility] [address] [place] [address] [address] [place] [address] OFFICE VISIT Date of Service: 04/10/24 MR#: [id number] Acct: [id number] Name: YAA BENITEZ Rep #: [id number] : 1950 Provider: Dr. Skyler corona MD Age/Sex: 74/F Location: [facility] Status: Signed with Addenda ADDENDUM by Lindsey Dykes on 04/10/24 at 1104 Office Procedure Documentation entered by Lindsey Dykes 04/10/24 11:04: Ortho Injections Injections Yes Greater Trochanteric Bursa Injection Left Is this a patient provided medication?: No Details: Obtained consent for injection. Under sterile conditions, injected the patients left hip with 1cc Kenalog 3cc bupivacaine. The patient tolerated the injection well without any noted complication. Patient should call our office if redness develops, pain worsens or if they have any concerns. Office Meds Kenalog 40 mg/mL suspension for injection Performing Provider: Skyler Herman MD Performing Location: [facility] Administered by: Skyler Herman MD on 04/10/24 11:03 Dose Route Admin Location Dispensed Lot Number Expiration Date [facility] Man ufacturer 40 mg intra-articular left hip 1 mL [id number] 09/13/25 3651-7484-90 [facility] Date cc: * Signed Intake Vital Signs 11/03/23 14:11 04/10/24 10:14 Height 5 ft 5 in 5 ft 5 in Weight: 173 lb 4 oz BMI 28.8 Intake Visit Reasons: LEFT HIP Accompanied by: Self Is patient in pain?: Yes Pain scale (1-10): 7 Allergies bacitracin (From Neosporin (asi-ybp-ykerq)) Allergy (Verified 04/10/24 10:15) Rash bee venom protein (honey bee) Allergy (Verified 04/10/24 10:15) Anaphylaxis ciprofloxacin (From Cipro) Allergy (Verified 04/10/24 10:15) Swelling, hives metronidazole (From Flagyl) Allergy (Verified 04/10/24 10:15) Swelling, hives neomycin (From Neosporin (zzq-hdl-tvypx)) Allergy (Verified 04/10/24 10:15) Rash polymyxin B (From Neosporin (yjw-uul-vdznt)) Allergy (Verified 04/10/24 10:15) Rash Medications ???Medication ???Instructions ???Recorded ???Confirmed ???Type estradiol 0.01% (0.1 mg/gram) See Rx Instructions vaginal DAILY 12/02/21 04/10/24 Rx vaginal cream 30 days #42.5 grams hydrocodone-acetaminophen 5-325mg 1 tab PO Q6H PRN PRN Pain 3 days 01/27/22 04/10/24 Rx 5mg-325mg #10 TABLETS losartan 100 mg tablet 100 mg PO DAILY #90 tabs 09/14/23 04/10/24 Rx diltiazem HCl 240 mg 240 mg PO DAILY HEART #30 caps 11/16/23 04/10/24 Rx capsule,extended release 24 hr apixaban 5 mg tablet (Eliquis) 5 mg PO BID #60 tabs 03/19/24 04/10/24 Rx atorvastatin 10 mg tablet 10 mg PO QHS #90 tabs 03/19/24 04/10/24 Rx Have you fallen in the past year?: No PFSH Medical History Left hip pain Essential hypertension Abdominal pain Angioedema Hypotension Dyspnea on exertion Anxiety and depression Diverticulitis Hyperlipidemia SVT (supraventricular tachycardia) Surgical History History of left heart catheterization (04/13/18) H/O sinus surgery H/O tubal ligation History of cataract surgery History of bunionectomy of left great toe History of carpal tunnel release Family History Mother CVA (cerebral vascular accident) Myocardial infarction age 58 Brother CAD (coronary artery disease) CABG Father CAD (coronary artery disease) Social History household members: spouse current occupational status: retired Smoking Status: Never smoker Electronic Cigarette Use: not used second hand exposure: No alcohol intake: never substance use type: does not use caffeine: Yes Type: coffee Number of servings: 3 what type of physical activity do you participate in: none seatbelt use: always do you feel safe at home: Yes additional social history: - Sushant BULLOCK LEFT HIP Details: This documentation accurately reflects the service provided and the decisions made by me, Dr. Skyler Herman MD 04/10/24 0916. Part of today???s visit was documented by [ ], acting as scribe. YAA BENITEZ is a 74 year old F here today for L hip pain. no pt or injections, no stretchig, no nsaids. lateral side. better with walking, worse with laying on the side. couple weeks. 11/22. had it before. comes and goes. using tylenol. Supplemental Info X-rays 2 views left hip including the pelvis showed no acute abnormalities joint space relatively well-maintained left hip very mild early degenerative changes. Coding Level of Care Code Attention Cruzito Diagnoses Left hip pain M25.552 Greater trochanteric bursitis of left hip M70.62 Comment 992 (more content not included)... Normal [facility] Basic Metabolic Profile (BMP )on 04-03-2024 BUN/CRE 12.3 RATIO Normal - [facility] Comment on above: Performed By: #### L 500.3400, L500.4100, L501.5200, L500.2500, L501.9520 #### [facility] [address] [place], [address] CA,Total 9.4 mg/dL Normal 8.5-10.1 [facility] Comment on above: Performed By: #### L 500.3400, L500.4100, L501.5200, L500.2500, L501.9520 #### [facility] [address] [place], [address] Chloride [Moles/Vol] 110 mmol/L High 98-107 [facility] Comment on above: Performed By: #### L 500.3400, L500.4100, L501.5200, L500.2500, L501.9520 #### [facility] [address] [place], [address] CO2 [Moles/Vol] 28.0 mmol/L Normal 21.0-32.0 [facility] Comment on above: Performed By: #### L 500.3400, L500.4100, L501.5200, L500.2500, L501.9520 #### [facility] [address] [place], [address] Creatinine [Mass/Vol] 0.97 mg/dL Normal 0.55-1.02 [facility] Comment on above: Result Comment: The validity of the calculated GFR GFRAA in patients over 70 years has not been determined. Clinical correlation is essential. Performed By: #### L 500.3400, L500.4100, L501.5200, L500.2500, L501.9520 #### [facility] [address] [place], [address] EST GFR - AA 72 mL/min Normal >60 [facility] Comment on above: Result Comment: Afri can [place] GFR Calc Performed By: #### L 500.3400, L500.4100, L501.5200, L500.2500, L501.9520 #### [facility] [address] [place], [address] GAP 2 Low 5-15 [facility] Comment on above: Performed By: #### L 500.3400, L500.4100, L501.5200, L500.2500, L501.9520 #### [facility] [address] [place], [address] GFR/1.73 sq M.predicted among non-blacks MDRD (S/P/Bld) [Vol rate/Area] 59 mL/min/{1.73_m2} Low >60 [facility] Comment on above: Result Comment: Non- GFR Calc Performed By: #### L 500.3400, L500.4100, L501.5200, L500.2500, L501.9520 #### [facility] [address] [place], [address] Glucose [Mass/Vol] 93 mg/dL Normal 74-106 [facility] Comment on above: Performed By: #### L 500.3400, L500.4100, L501.5200, L500.2500, L501.9520 #### [facility] [address] [place], [address] Potassium [Moles/Vol] 4.6 mmol/L Normal 3.5-5.1 [facility] Comment on above: Performed By: #### L 500.3400, L500.4100, L501.5200, L500.2500, L501.9520 #### [facility] [address] [place], [address] Sodium [Moles/Vol] 139 mmol/L Normal 136-145 [facility] Comment on above: Performed By: #### L 500.3400, L500.4100, L501.5200, L500.2500, L501.9520 #### [facility] [address] [place], [address] Urea nitrogen [Mass/Vol] 12 mg/dL Normal 7-18 [facility] Comment on above: Performed By: #### L 500.3400, L500.4100, L501.5200, L500.2500, L501.9520 #### [facility] [address] [place], [address] Bilirubin directOrdered By: Shanna Alarcon on 04-03-2024 Bilirubin.direct [Mass/Vol] 0.10 mg/dL 0.00-0.30 [facility] Bilirubin, totalOrdered By: Shanna Alarcon on 04-03-2024 Bilirubin [Mass/Vol] 0.40 mg/dL 0.20-1.00 [facility] Comment on above: For patients on eltr ombopag therapy, use of Dimension Odin TBIL is not recommended. Blood urea nitrogen (BUN)/cr eatinine ratioOrdered By: Shanna Alarcon on 04-03-2024 Urea nitrogen/Creatinine [Mass ratio] 12.3 mg/mg 10-20 [facility] Carbon dioxide measurementOr dered By: Shanna Alarcon on 04-03-2024 CO2 [Moles/Vol] 28.0 mmol/L 21.0-32.0 [facility] Chloride measurementOrdered By: Shanna Alarcon on 04-03-2024 Chloride [Moles/Vol] 110 mmol/L High 98-107 [facility] Estimated glomerular filtrat ion rate (GFR) AmericanOrdered By: Shanna Alarcon on 04-03-2024 Estimated GFR (MDRD) Amer 72 mL/min >60 [facility] Comment on above: GFR Calc Glomerular filtration rate ( GFR) estimationOrdered By: Shanna Alarcon on 04-03-2024 Estimated GFR (MDRD) Non-Af Amer 59 mL/min Low >60 [facility] Comment on above: Non- GFR Calc Glucose measurementOrdered B y: Shanna Alarcon on 04-03-2024 Glucose [Mass/Vol] 93 mg/dL 74-106 [facility] High density lipoprotein (HD L) measurementOrdered By: Shanna Alarcon on 04-03-2024 Cholesterol in HDL [Mass/Vol] 71 mg/dL >40 [facility] Comment on above: The drugs N-Acetylcy steine and Metamizole may falsely depress this assay. Reference Range HDL <40 mg/dL Low HDL Cholesterol HDL >or= 60 mg/dL High HDL Cholesterol Laboratory - Chemistry and C hemistry - challengeOrdered By: Shanna Alarcon on 04-03-2024 AST [Catalytic activity/Vol] 18 U/L 15-37 [facility] Lipid Profileon 04-03-2024 Cholesterol [Mass/Vol] 185 mg/dL Normal 200 [facility] Comment on above: Result Comment: <200 mg/dL Desirable 200-240 mg/dL Borderline >240 mg/dL High Risk Performed By: #### L 500.3400, L500.4100, L501.5200, L500.2500, L501.9520 #### [facility] [address] [place], [address] Cholesterol in HDL [Mass/Vol] 71 mg/dL Normal [facility] Comment on above: Result Comment: The drugs N-Acetylcysteine and Metamizole may falsely depress this assay. Reference Range HDL <40 mg/dL Low HDL Cholesterol HDL >or= 60 mg/dL High HDL Cholesterol Performed By: #### L 500.3400, L500.4100, L501.5200, L500.2500, L501.9520 #### [facility] [address] [place], [address] Cholesterol in LDL [Mass/Vol] 99 mg/dL Normal 0-130 [facility] Comment on above: Performed By: #### L 500.3400, L500.4100, L501.5200, L500.2500, L501.9520 #### [facility] [address] [place], [address] Cholesterol in VLDL [Mass/Vol] 15 mg/dL Normal 5-40 [facility] Comment on above: Performed By: #### L 500.3400, L500.4100, L501.5200, L500.2500, L501.9520 #### [facility] [address] [place], [address] Triglyceride [Mass/Vol] 77 mg/dL Normal [facility] Comment on above: Result Comment: The drugs N-Acetylcysteine and Metamizole may falsely depress this assay. Serum Triglycerides Reference Interval Normal <150 mg/dL Borderline high 150 - 199 mg/dL High 200 - 499 mg/dL Very High > or = 500 mg/dL Performed By: #### L 500.3400, L500.4100, L501.5200, L500.2500, L501.9520 #### [facility] [address] [place], [address] Liver Profileon 04-03-2024 Albumin [Mass/Vol] 3.4 g/dL Normal 3.2-5.0 [facility] Comment on above: Performed By: #### L 500.3400, L500.4100, L501.5200, L500.2500, L501.9520 #### [facility] [address] [place], [address] ALK P 74 U/L Normal 45-117 [facility] Comment on above: Performed By: #### L 500.3400, L500.4100, L501.5200, L500.2500, L501.9520 #### [facility] [address] [place], [address] ALT [Catalytic activity/Vol] 16 U/L Normal 13-56 [facility] Comment on above: Performed By: #### L 500.3400, L500.4100, L501.5200, L500.2500, L501.9520 #### [facility] [address] [place], [address] AST [Catalytic activity/Vol] 18 U/L Normal 15-37 [facility] Comment on above: Performed By: #### L 500.3400, L500.4100, L501.5200, L500.2500, L501.9520 #### [facility] [address] [place], [address] Bilirubin [Mass/Vol] 0.40 mg/dL Normal 0.20-1.00 [facility] Comment on above: Result Comment: For patients on eltrombopag therapy, use of Dimension Odin TBIL is not recommended. Performed By: #### L 500.3400, L500.4100, L501.5200, L500.2500, L501.9520 #### [facility] [address] [place], [address] Bilirubin.direct [Mass/Vol] 0.10 mg/dL Normal 0.00-0.30 [facility] Comment on above: Performed By: #### L 500.3400, L500.4100, L501.5200, L500.2500, L501.9520 #### [facility] [address] [place], [address] Globulin (S) [Mass/Vol] 3.7 g/dL Normal 2.2-4.2 [facility] Comment on above: Performed By: #### L 500.3400, L500.4100, L501.5200, L500.2500, L501.9520 #### [facility] [address] [place], [address] T PROT 7.1 g/dL Normal 6.4-8.2 [facility] Comment on above: Performed By: #### L 500.3400, L500.4100, L501.5200, L500.2500, L501.9520 #### [facility] [address] [place], [address] Low density lipoprotein (LDL ) cholesterol measurementOrdered By: Shanna Alarcon on 04-03-2024 Cholesterol in LDL [Mass/Vol] 99 mg/dL 0-130 [facility] Magnesiumon 04-03-2024 Magnesium [Mass/Vol] 2.2 mg/dL Normal 1.6-2.6 [facility] Comment on above: Performed By: #### L 500.3400, L500.4100, L501.5200, L500.2500, L501.9520 #### [facility] [address] [place], [address] Magnesium measurementOrdered By: Shanna Alarcon on 04-03-2024 Magnesium [Mass/Vol] 2.2 mg/dL 1.6-2.6 [facility] Potassium measurementOrdered By: Shanna Alarcon on 04-03-2024 Potassium [Moles/Vol] 4.6 mmol/L 3.5-5.1 [facility] Serum anion gap measurementO rdered By: Shanna Alarcon on 04-03-2024 Anion gap [Moles/Vol] 2 mmol/L Low 5-15 [facility] Serum globulin measurementOr dered By: Shanna Alarcon on 04-03-2024 Globulin (S) [Mass/Vol] 3.7 g/dL 2.2-4.2 [facility] Serum or plasma alanine [place] otransferase (ALT) measurementOrdered By: Shanna Alarcon on 04-03-2024 ALT [Catalytic activity/Vol] 16 U/L 13-56 [facility] Serum or plasma albumin iftikhar urement (mass/volume)Ordered By: Shanna Alarcon on 04-03-2024 Albumin [Mass/Vol] 3.4 g/dL 3.2-5.0 [facility] Serum or plasma alkaline dereck sphatase measurementOrdered By: Shanna Alarcon on 04-03-2024 ALP [Catalytic activity/Vol] 74 U/L 45-117 [facility] Serum or plasma calcium iftikhar urement (mass/volume)Ordered By: Shanna Alarcon on 04-03-2024 Calcium [Mass/Vol] 9.4 mg/dL 8.5-10.1 [facility] Serum or plasma cholesterol measurement (mass/volume)Ordered By: Shanna Alarcon on 04-03-2024 Cholesterol [Mass/Vol] 185 mg/dL <200 [facility] Comment on above: <200 mg/dL Desirable 200-240 mg/dL Borderline >240 mg/dL High Risk Serum or plasma creatinine m easurement (mass/volume)Ordered By: Shanna Alarcon on 04-03-2024 Creatinine [Mass/Vol] 0.97 mg/dL 0.55-1.02 [facility] Comment on above: The validity of the calculated GFR & GFRAA in patients over 70 years has not been determined. Clinical correlation is essential. Serum or plasma urea nitroge n measurement (mass/volume)Ordered By: Shanna Alarcon on 04-03-2024 Urea nitrogen [Mass/Vol] 12 mg/dL 7-18 [facility] Sodium levelOrdered By: Kelsey Alarcon on 04-03-2024 Sodium [Moles/Vol] 139 mmol/L 136-145 [facility] TSH QnOrdered By: Shanna purvis on 04-03-2024 Thyroid Stimulating Hormone (TSH) 3.190 uIU/mL 0.358-3.740 [facility] Thyroid Stim Hormone (TSH)on 04-03-2024 TSH 3.190 uIU/mL Normal 0.358-3.740 [facility] Comment on above: Performed By: #### L 500.3400, L500.4100, L501.5200, L500.2500, L501.9520 ####[facility] [address] [place], [address] Total proteinOrdered By: Mp Alarcon on 04-03-2024 Protein [Mass/Vol] 7.1 g/dL 6.4-8.2 [facility] Triglycerides measurementOrd ered By: Shanna Alarcon on 04-03-2024 Triglyceride [Mass/Vol] 77 mg/dL <199 [facility] Comment on above: The drugs N-Acetylcy steine and Metamizole may falsely depress this assay.Serum Triglycerides Reference Interval Normal <150 mg/dL Borderline high 150 - 199 mg/dL High 200 - 499 mg/dL Very High > or = 500 mg/dL Very low density lipoprotein (VLDL) cholesterol measurementOrdered By: Shanna Alarcon on 04-03-2024 VLDL Cholesterol 15 mg/dL 5-40 [facility] Cardiology Visit Reporton Cardiology Visit Report [facility] [address] [place] [address] OFFICE VISIT Date of Service: 11/03/23 MR#: [id number] Acct: [id number] Name: YAA BENITEZ Rep #: [id number] : 1950 Provider: SARA purvis Age/Sex: 73/F [place] [facility] [place] Status: Signed [facility] History of Present Illness Details: This is a 73-year-old white female who presents today for a cardiovascular outpatient follow-up. She has a history of SVT, hypertension, and hyperlipidemia. He says that she had presented to her primary physician's office for evaluation of her fever and a cough and was told that she could not be seen. She therefore went to the urgent care and had a chest x-ray and they advised her to follow-up with a CAT scan. 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 She had previously undergone an echocardiogram which demonstrated preserved ejection fraction in 2018 as well as a left heart catheterization in 2018 for reasons that are not entirely clear which was normal. She has had a history of hypertension. From a cardiac standpoint, the patient is doing well. She denies any palpitations, chest pain, pressure or heaviness. She denies SOB, Orthopnea, and PND. She does not have bleeding issues; no blood in urine, stool or nosebleeds. She denies any decrease in energy level, myalgias, or claudication. She does not have edema, or sudden weight gain. She denies any lightheadedness, dizziness, near syncope. 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 Required: No Is patient in pain?: No Allergies bacitracin (From Neosporin (ymd-isz-eglrs)) Allergy (Verified 11/03/23 14:11) Rash bee venom protein (honey bee) Allergy (Verified 11/03/23 14:11) Anaphylaxis ciprofloxacin (From Cipro) Allergy (Verified 11/03/23 14:11) Swelling, hives metronidazole (From Flagyl) Allergy (Verified 11/03/23 14:11) Swelling, hives neomycin (From Neosporin (myc-ytf-qxhrh)) Allergy (Verified 11/03/23 14:11) Rash polymyxin B (From Neosporin (nbr-ozj-euayg)) Allergy (Verified 11/03/23 14:11) Rash Medications ???Medication ???Instructions ???Recorded ???Confirmed ???Type diltiazem HCl 120 mg 120 mg PO DAILY HEART 09/05/18 11/03/23 History capsule,extended release 24 hr estradiol 0.01% (0.1 mg/gram) See Rx Instructions vaginal DAILY 12/02/21 11/03/23 Rx vaginal cream 30 days #42.5 grams hydrocodone-acetaminophen 5-325mg 1 tab PO Q6H PRN PRN Pain 3 days 01/27/22 11/03/23 Rx 5mg-325mg #10 TABLETS losartan 100 mg tablet 100 mg PO DAILY #90 tabs 09/14/23 11/03/23 Rx atorvastatin 10 mg tablet 10 mg PO QHS #30 tabs 11/03/23 11/03/23 Rx PFSH Medical History (Reviewed 11/03/23 @ 14:11 by Shanna Alarcon SCREEN MAKING 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, SCREEN MAKING SUPERVISOR-C) Essential hypertension Abdominal pain Angioedema Hypotension Dyspnea on exertion Anxiety and depression Diverticulitis Hyperlipidemia SVT (supraventricular tachycardia) Surgical History History of left heart catheterization (04/13/18) H/O sinus surgery H/O tubal ligation History of cataract surgery History of bunionectomy of left great toe History of carpal tunnel release Family History Mother CVA (cerebral vascular accident) Myocardial infarction age 58 Brother CAD (coronary artery disease) CABG Father CAD (coronary artery disease) Social History household members: spouse current occupational status: retired Smoking Status: Never smoker Electronic Cigarette Use: not used second hand exposure: No alcohol intake: never substance use type: does not use caffeine: Yes Type: coffee Number of servings: 3 what type of physical activity do you participate in: none seatbelt use: always do you feel safe at home: Yes additional social history: - Sushant HINOJOSA Const Const: Negative for fatigue, weakness, fever(s), headache(s), chills, frequent falls, weight gain or weight loss Eyes Eyes: Negative for blind spots, loss of peripheral vision, transient loss of vision, blurry vision, change in vision, double vision, floaters or tunnel vision ENT ENT: Negative for headache(s), dizziness, Nosebleed/epistaxis, balance problems or neck pain Cardio Chest Pain: No Palpitations: No Khris (more content not included)... Normal [facility] Absolute lymphocyte countOrd ered By: Emily Perry on 01-06-2023 Lymphocytes Auto (Unsp spec) [#/Vol] 2.13 10*3/uL 0.83-4.51 [facility] Basophil percentageOrdered B y: Emily Perry on 01-06-2023 Basophils/100 WBC (Bld) 1.7 % 0-1 [facility] Chloride [Moles/Vol] 107 mmol/L 98-107 [facility] Eosinophils/100 WBC (Bld) 2.5 % 0-5 [facility] Glucose [Mass/Vol] 95 mg/dL 74-106 [facility] Neutrophils (Bld) [#/Vol] 3.5 10*3/uL 2.0-7.7 [facility] Neutrophils/100 WBC (Bld) 54.8 % 47-70 [facility] Potassium [Moles/Vol] 4.8 mmol/L 3.5-5.1 [facility] Sodium [Moles/Vol] 138 mmol/L 136-145 [facility] WBC (Bld) [#/Vol] 6.4 10*3/uL 4.4-11.0 [facility] Blood erythrocytes count (nu mber/volume)Ordered By: Emily Perry on 01-06-2023 RBC (Bld) [#/Vol] 5.21 10*6/uL 4.2-5.4 [facility] Blood hemoglobin measurement (mass/volume)Ordered By: Emily Perry on 01-06-2023 Hemoglobin (Bld) [Mass/Vol] 16.6 g/dL 12.0-15.0 [facility] Blood lymphocytes/100 leukoc ytesOrdered By: Emily Perry on 01-06-2023 Lymphocytes/100 WBC (Bld) 33.2 % 19-41 [facility] Blood monocytes/100 leukocyt esOrdered By: Emily Perry on 01-06-2023 Monocytes/100 WBC (Bld) 7.5 % 0-10 [facility] Blood platelet mean volumeOr dered By: Emily Perry on 01-06-2023 Platelet mean volume (Bld) [Entitic vol] 11.1 fL 6.2-12.0 [facility] Determination of erythrocyte mean corpuscular volume (MCV)Ordered By: Emily Perry on 01-06-2023 MCV (RBC) [Entitic vol] 97.3 fL 81-99 [facility] Hematocrit Auto (Bld) [Volum e fraction]Ordered By: Emily Perry on 01-06-2023 Hematocrit (Bld) [Volume fraction] 50.7 % 37-47 [facility] Laboratory - Chemistry and C hemistry - challengeOrdered By: Emily Perry on 01-06-2023 CO2 [Moles/Vol] 24.0 mmol/L 21.0-32.0 [facility] Urea nitrogen/Creatinine [Mass ratio] 12.0 mg/mg 10-20 [facility] - Hematology and Cell countsOrdered By: Emily Perry on 01-06-2023 Erythrocyte distribution width (RBC) [Entitic vol] 47.6 fL 35.1-43.9 [facility] Erythrocyte distribution width (RBC) [Ratio] 13.2 % 11.6-14.6 [facility] Immature granulocytes/100 WBC (Bld) 0.300 % 0.0-0.9 [facility] Comment on above: IG% - Immature Granu locytes (promyelocytes, myelocytes and metamyelocytes) > 1% indicates that a LEFT SHIFT is Present. MCH (RBC) [Entitic mass] 31.9 pg 27.0-32.0 [facility] Nucleated RBC/100 WBC (Bld) [Ratio] 0 % 0-5 [facility] MCHC Auto (RBC) [Mass/Vol]Or dered By: Emily Perry on 01-06-2023 MCHC (RBC) [Mass/Vol] 32.7 g/dL 32-36 [facility] No Panel InformationOrdered By: Emily Perry on 01-06-2023 Estimated GFR (MDRD) Amer 70 mL/min >60 [facility] Comment on above: GFR Calc Estimated GFR (MDRD) Non-Af Amer 58 mL/min >60 [facility] Comment on above: Non- GFR Calc Platelets bldOrdered By: Michael Perry on 01-06-2023 Platelets (Bld) [#/Vol] 257 10*3/uL 150-450 [facility] Serum or plasma calcium iftikhar urement (mass/volume)Ordered By: Emily Perry on 01-06-2023 Calcium [Mass/Vol] 9.7 mg/dL 8.5-10.1 [facility] Serum or plasma creatinine m easurement (mass/volume)Ordered By: Emily Perry on 01-06-2023 Creatinine [Mass/Vol] 1.00 mg/dL 0.55-1.02 [facility] Comment on above: The validity of the calculated GFR & GFRAA in patients over 70 years has not been determined. Clinical correlation is essential. Serum or plasma urea nitroge n measurement (mass/volume)Ordered By: Emily Perry on 01-06-2023 Urea nitrogen [Mass/Vol] 12 mg/dL 7-18 [facility] Thin prep Papanicolaou smear with manual screeningOrdered By: Emily Perry on 01-06-2023 Thin prep Papanicolaou smear with manual screening 7 -15 [facility] Basophil percentageOrdered B y: Dr. Pruitt on 11-04-2022 Bilirubin [Mass/Vol] 0.30 mg/dL 0.20-1.00 [facility] Comment on above: For patients on eltr ombopag therapy, use of Dimension Odin TBIL is not recommended. Cholesterol [Mass/Vol] 241 mg/dL <200 [facility] Comment on above: <200 mg/dL Desirable 200-240 mg/dL Borderline >240 mg/dL High Risk Protein [Mass/Vol] 7.4 g/dL 6.4-8.2 [facility] Triglyceride [Mass/Vol] 185 mg/dL <199 [facility] Comment on above: The drugs N-Acetylcy steine and Metamizole may falsely depress this assay.Serum Triglycerides Reference Interval Normal <150 mg/dL Borderline high 150 - 199 mg/dL High 200 - 499 mg/dL Very High > or = 500 mg/dL Direct bilirubinOrdered By: Dr. Pruitt on 11-04-2022 Bilirubin.direct [Mass/Vol] 0.09 mg/dL 0.00-0.30 [facility] Laboratory - Chemistry and C hemistry - challengeOrdered By: Dr. Pruitt on 11-04-2022 ALP [Catalytic activity/Vol] 80 U/L 45-117 [facility] ALT [Catalytic activity/Vol] 19 U/L 13-56 [facility] Globulin (S) [Mass/Vol] 3.9 g/dL 2.2-4.2 [facility] Serum or plasma albumin iftikhar urement (mass/volume)Ordered By: Dr. Pruitt on 11-04-2022 Albumin [Mass/Vol] 3.5 g/dL 3.2-5.0 [facility] Serum or plasma cholesterol in HDL measurement (mass/volume)Ordered By: Dr. Pruitt on 11-04-2022 Cholesterol in HDL [Mass/Vol] 65 mg/dL >40 [facility] Comment on above: The drugs N-Acetylcy steine and Metamizole may falsely depress this assay. Reference Range HDL <40 mg/dL Low HDL Cholesterol HDL >or= 60 mg/dL High HDL Cholesterol Serum or plasma cholesterol in VLDL measurement (mass/volume)Ordered By: Dr. Pruitt on 11-04-2022 Cholesterol in VLDL [Mass/Vol] 37 mg/dL 5-40 [facility] Serum or plasma low density lipoprotein (LDL) cholesterol measurement (mass/volume)Ordered By: Dr. Pruitt on 11-04-2022 Cholesterol in LDL [Mass/Vol] 139 mg/dL 0-130 [facility] Thin prep Papanicolaou smear with manual screeningOrdered By: Dr. Pruitt on 11-04-2022 Thin prep Papanicolaou smear with manual screening 23 U/L 15-37 [facility] CNOVon 03-18-2022 CNOV Office Visit (IVÁN ) ----- YAA BENITEZ ([id number]) 1950 F Date Time Provider Department 03/18/22 3:00 PM JAKE BARBOSA During your visit today, we recorded the following information about you: Jake Barbosa MD 04/19/2022 7:42 AM Signed Jake Barbosa MD Department of Orthopaedics Orthopaedics [address] [facility] [address] Dept: [phone] Dept March 18, 2022 CHIEF COMPLAINT: Established Patient and Knee Pain of the Left Knee and Last seen 03/01/22 Right distal fibula fracture HPI Patient here today for left knee pain. No specific injury. She is having medial aspect and feels her knee feels warm. Patient was unaware she needed x-rays. No x-rays done prior to appointment. Patient states she is having difficulty getting up out of a chair due to the pain. Patient states she is continuing to have some swelling in her right ankle. She stopped wearing the fracture boot last week and has been wearing a regular shoe. with patient today. AMB ROOMING INTAKE FLOWSHEET DATA Risk Screening Do you have concerns about personal safety or safety in the home?: No Pain Pain Level: 8 Pain Location: Knee-Left Description: Aching, Dull Duration Amount of Time: 5 Duration Units: Days Frequency: Continuous Intervention/Comfort measure: Medication ASSESSMENT: M25.562, G89.29 Chronic pain of left knee (primary encounter diagnosis) M17.12 Primary osteoarthritis of left knee PLAN: While she has been protecting her ankle, I think she may have just been compensating with the knee. We will try an anti-inflammatory for now. May consider cortisone injection in the future. She would likely start to feel bit better as she can wean out of the walking boot. Ms. Yaa Benitez was advised as to contrast therapies and/or to take analgesics/anti-inflammat ories as needed and all contraindications were reviewed. OBJECTIVE: Ms. Yaa Benitez is a pleasant 72 year old in no apparent distress. Gen:There were no vitals taken for this visit. nl development, non obese, no deformities ENT: Normocephalic, normal hearing, moist mucosa CV: Pulses:DP/PT= 2+ and symmetric, capillary refill < 2 secs, no peripheral edema/varicosities Skin: no rash, bruising or lesions. Good turgor. Psych: cooperative and appropriate, alert and oriented x 3, good mood and affect. Musculoskeletal: No effusion at the knee. Some mild medial joint space tenderness. Ligamentous exam appears intact. 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 CORRECT BUNION,SIMPLE Bunion DENTAL TMJ ARTHROGRAM INCL I DILATION AND CURETTAGE DXAND/THER NONOBSTETRIC hysteroscopy ENDOMETRIAL BX W/WO ENDOCERVIX BX W/O DILAT SPX 06/10/06 superficial endometrium LIG/TRNSXJ FLP TUBE ABDL/VAG APPR UNI/BI LIGAT,DIV, AND/OR EXCISE 2ND VARICOSE VEINS 2012 [place] NEUROPLASTY AND/TRANSPOS MEDIAN NRV CARPAL TUNNE Carpal tunnel decomp XCAPSL CTRC RMVL INSJ IO LENS PROSTH W/O ECP Cataract Removal right eye Medications: Current Outpatient Medications Medication Sig losartan (COZAAR) 50 mg tablet Take 50 mg by mouth once daily. cholecalciferol (VITAMIN D3) 1,000 unit tab tablet Take 1,000 Units by mouth once daily. fenofibrate nanocrystallized (TRICOR) 145 mg tablet Take 1 tablet by mouth once daily. dilTIAZem CD (CARDIZEM CD, CARTIA XT) 120 mg 24 hr capsule Take 120 mg by mouth once daily. acetaminophen-HYDROcodone (VICODIN) 5-500 mg tablet Take 1 tablet by mouth every 6 hours as needed. 1/2 tablet as needed. benzonatate (TESSALON PERLE) 100 mg capsule Take 2 capsules by mouth three times daily as needed. (Patient not taking: Reported on 03/18/2022) sertraline (ZOLOFT) 100 mg tablet 100 mg twice daily. (Patient not taking: Reported on 02/04/2022) FENOFIBRATE MICRONIZED ORAL Take by mouth. (Patient not taking: Reported on 09/28/2020 ) Quinapril-Hydrochlorothia zide 20-12.5 mg ORAL per tablet Take one(1) tablet daily. (Patient not taking: ) ZOLOFT 100 MG TAB (Patient not taking: ) WELLBUTRIN SR 200 MG TAB (Patient not taking: ) No current facility-administered medications for this visit. Allergies: Bacitracin, Ciprofloxacin, Flagyl [Metronidazole], Polymyxin [Bacitracin-Polymyxin B], and Neosporin [Pjxynpld-Rsshddhbsa-Yuhw myxin] ROS: General (negative for fatigue, malaise, weight loss/gain) HEENT (negative for headache, earache, recent vision changes, sinus pain, sore throat) Respiratory (no recent shor (more content not included)... Normal [facility] CNOVon 03-01-2022 CNOV Office Visit (ORTHWS ) ----- YAA BENITEZ ([id number]) 1950 F Date Time Provider Department 03/01/22 10:45 AM JAKE BARBOSA During your visit today, we recorded the following information about you: Jake Barbosa MD 03/22/2022 7:47 AM Signed Jake Barbosa MD Department of Orthopaedics Orthopaedics [address] [facility] [address] Dept: [phone] Dept March 01, 2022 CHIEF COMPLAINT: Established Patient and Follow Up of the Right Ankle HPI Patient is here today 4 weeks 4 days post fracture of right distal fibula. Patient states she is not having pain and has been ambulating fine in the walking boot. [facility] today at [facility]. ASSESSMENT: S82.636U Avulsion fracture of distal fibula (primary encounter diagnosis) PLAN: Patient just over 4 weeks from her distal fibula fracture. She is doing well. We will continue her in her walking boot. We will see her back in another 2 to 4 weeks. Ms. Yaa Benitez was advised as to contrast therapies and/or to take analgesics/anti-inflammat ories as needed and all contraindications were reviewed. OBJECTIVE: Ms. Yaa Benitez is a pleasant 72 year old in no apparent distress. Gen:There were no vitals taken for this visit. nl development, non obese, no deformities ENT: Normocephalic, normal hearing, moist mucosa CV: Pulses:Radial= 2+ and symmetric, capillary refill < 2 secs, no peripheral edema/varicosities Skin: no rash, bruising or lesions. Good turgor. Psych: cooperative and appropriate, alert and oriented x 3, good mood and affect. Musculoskeletal: Swelling is down a bit. Very minimal if any tenderness over the lateral malleolus. Imaging: IMPRESSION: Healing distal fibular fracture. Bench Examiner: MARGIE Transcribe Date/Time: Mar 02 2022 1:34P Dictated by : YIFAN FERNANDEZ MD This examination was interpreted and the report reviewed and electronically signed by: YIFAN FERNANDEZ MD on Mar 02 2022 1:36PM EST Results-Findings * * *Final Report* * * DATE OF EXAM: Mar 01 2022 10:24AM [id number] - XR ANKLE 3V AP/LAT/OBL RT / PROCEDURE REASON: Avulsion fracture of distal fibula * * * * Physician Interpretation * * * * CLINICAL INDICATION: Avulsion fracture TECHNIQUE: 3 view radiographic study of the right ankle COMPARISON: Radiograph dated January 27, 2022 FINDINGS: Healing transverse fracture of the distal fibula with healing manifest by increased sclerosis noting the fracture lucency remains evident. Dorsal and plantar calcaneal enthesophytes. Calcifications project in the region of the distal Achilles. Supporting Subjective Information Below: Past Surgical History: PAST SURGICAL HISTORY Procedure Laterality Date COLONOSCOPY FLX DX W/COLLJ SPEC WHEN PFRMD 05/2007 Colonoscopy COLONOSCOPY FLX DX W/COLLJ SPEC WHEN PFRMD 07/26/2016 Colonoscopy COLPOSCOPY CERVIX UPPER/ADJACENT VAGINA Colposcopy w/ Bx CONIZATION CERVIX W/WO DANDC RPR ELTRD EXC 09/08/05 severe squamous dysplasia with clear margins after leep. CORRECT BUNION,SIMPLE Bunion DENTAL TMJ ARTHROGRAM INCL I DILATION AND CURETTAGE DXAND/THER NONOBSTETRIC hysteroscopy ENDOMETRIAL BX W/WO ENDOCERVIX BX W/O DILAT SPX 06/10/06 superficial endometrium LIG/TRNSXJ FLP TUBE ABDL/VAG APPR UNI/BI LIGAT,DIV, AND/OR EXCISE 2ND VARICOSE VEINS 2012 [place] NEUROPLASTY AND/TRANSPOS MEDIAN NRV CARPAL TUNNE Carpal tunnel decomp XCAPSL CTRC RMVL INSJ IO LENS PROSTH W/O ECP Cataract Removal right eye Medications: Current Outpatient Medications Medication Sig losartan (COZAAR) 50 mg tablet Take 50 mg by mouth once daily. cholecalciferol (VITAMIN D3) 1,000 unit tab tablet Take 1,000 Units by mouth once daily. benzonatate (TESSALON PERLE) 100 mg capsule Take 2 capsules by mouth three times daily as needed. fenofibrate nanocrystallized (TRICOR) 145 mg tablet Take 1 tablet by mouth once daily. dilTIAZem CD (CARDIZEM CD, CARTIA XT) 120 mg 24 hr capsule Take 120 mg by mouth once daily. acetaminophen-HYDROcodone (VICODIN) 5-500 mg tablet Take 1 tablet by mouth every 6 hours as needed. 1/2 tablet as needed. sertraline (ZOLOFT) 100 mg tablet 100 mg twice daily. (Patient not taking: Reported on 02/04/2022) FENOFIBRATE MICRONIZED ORAL Take by mouth. (Patient not taking: Reported on 09/28/2020 ) Quinapril-Hydrochlorothia zide 20-12.5 mg ORAL per tablet Take one(1) tablet daily. (Patient not taking: ) ZOLOFT 100 MG TAB (Patient not taking: ) WELLBUTRIN SR 200 MG TAB (Patient not taking: ) No current facility-administered medications for this visit. Allergies: Bacitracin, Ciprofloxacin, Flagyl [Metronidazole], Polymyxin [Bacitracin-Polymyxin B], and Neosporin [Rgfuqwdt-Azztdbxkti-Amhf myxin] ROS: General (negative for fatigue, malaise, weight loss/gain) HEENT (negative for headache, earache, recent (more content not included)... Normal [facility] XR ANKLE 3V AP/LAT/OBL RTon 03-01-2022 XR ANKLE 3V AP/LAT/OBL RT * * *Final Report* * * DATE OF EXAM: Mar 01 2022 10:24AM [id number] - XR ANKLE 3V AP/LAT/OBL RT / PROCEDURE REASON: Avulsion fracture of distal fibula * * * * Physician Interpretation * * * * CLINICAL INDICATION: Avulsion fracture TECHNIQUE: 3 view radiographic study of the right ankle COMPARISON: Radiograph dated January 27, 2022 FINDINGS: Healing transverse fracture of the distal fibula with healing manifest by increased sclerosis noting the fracture lucency remains evident. Dorsal and plantar calcaneal enthesophytes. Calcifications project in the region of the distal Achilles. IMPRESSION: Healing distal fibular fracture. Bench Examiner: MARGIE Transcribe Date/Time: Mar 02 2022 1:34P Dictated by : YIFAN FERNANDEZ MD This examination was interpreted and the report reviewed and electronically signed by: YIFAN FERNANDEZ MD on Mar 02 2022 1:36PM EST [id number] Normal [facility] CNOVon 02-04-2022 CNOV Office Visit (ORTHWS ) ----- YAA BENITEZ ([id number]) 1950 F Date Time Provider Department 02/04/22 3:30 PM JAKE BARBOSA During your visit today, we recorded the following information about you: Jake Barbosa MD 02/16/2022 1:09 PM Signed Jake Barbosa MD Department of Orthopaedics Orthopaedics [address] [facility] [address] Dept: [phone] Dept February 04, 2022 CHIEF COMPLAINT: New and Fracture of the Right Ankle HPI Patient here today for right ankle fracture. States she was walking on an uneven sidewalk outside the [facility] and twisted the ankle. She immediately was not able to bear any weight. She was taken by EMS to [facility]. She arrives in a splint today. She has been taking hydrocodone only at bedtime. ASSESSMENT: S82.833Z Avulsion fracture of distal fibula (primary encounter diagnosis) PLAN: We will get repeat films in another 3 to 4 weeks.We talked about treatment options and this looks like a stable ankle fracture. We will get her into a walker boot. She can weight-bear as tolerated in the boot. FOLLOW UP INSTRUCTIONS: As above Ms. Yaa Benitez was advised as to contrast therapies and/or to take analgesics/anti-inflammat ories as needed and all contraindications were reviewed. OBJECTIVE: Ms. Yaa Benitez is a pleasant 71 year old in no apparent distress. Gen:There were no vitals taken for this visit. nl development, non obese, no deformities ENT: Normocephalic, normal hearing, moist mucosa CV: Pulses:DP/PT= 2+ and symmetric, capillary refill < 2 secs, no peripheral edema/varicosities Skin: no rash, bruising or lesions. Good turgor. Psych: cooperative and appropriate, alert and oriented x 3, good mood and affect. Musculoskeletal: Mild and appropriate swelling on the lateral ankle. Resolving ecchymoses. Tender to palpation at the distal fibula. No pain at the knee with good range of motion and no swelling. IMAGIN views of the right ankle from an outside facility show a Jacobson a distal fibula fracture with intact mortise. Supporting Subjective Information Below: Past Medical History: PAST MEDICAL HISTORY Diagnosis Date Adjustment disorder with depressed mood DEPRESSION Disorder of bone and cartilage, unspecified Dysplasia of cervix, unspecified 09/08/05 severe dysplasia Essential hypertension, benign Other and unspecified hyperlipidemia ELEVATED LIPIDS Postmenopausal bleeding 06/10/06 SVT (supraventricular tachycardia) (HCC) Past Surgical History: PAST SURGICAL HISTORY Procedure Laterality Date COLONOSCOPY FLX DX W/COLLJ SPEC WHEN PFRMD 05/2007 Colonoscopy COLONOSCOPY FLX DX W/COLLJ SPEC WHEN PFRMD 07/26/2016 Colonoscopy COLPOSCOPY CERVIX UPPER/ADJACENT VAGINA Colposcopy w/ Bx CONIZATION CERVIX W/WO DANDC RPR ELTRD EXC 09/08/05 severe squamous dysplasia with clear margins after leep. CORRECT BUNION,SIMPLE Bunion DENTAL TMJ ARTHROGRAM INCL I DILATION AND CURETTAGE DXAND/THER NONOBSTETRIC hysteroscopy ENDOMETRIAL BX W/WO ENDOCERVIX BX W/O DILAT SPX 06/10/06 superficial endometrium LIG/TRNSXJ FLP TUBE ABDL/VAG APPR UNI/BI LIGAT,DIV, AND/OR EXCISE 2ND VARICOSE VEINS 2012 [place] NEUROPLASTY AND/TRANSPOS MEDIAN NRV CARPAL TUNNE Carpal tunnel decomp XCAPSL CTRC RMVL INSJ IO LENS PROSTH W/O ECP Cataract Removal right eye Family History: FAMILY HISTORY Problem Relation Age of Onset Hypertension Mother Stroke Mother Heart Father Diabetes Daughter Social History: Social History Tobacco Use Smoking status: Never Smokeless tobacco: Never Vaping Use Vaping Use: Never used Substance Use Topics Alcohol use: No Drug use: No Medications: Current Outpatient Medications Medication Sig losartan (COZAAR) 50 mg tablet Take 50 mg by mouth once daily. cholecalciferol (VITAMIN D) 1,000 unit tab tablet Take 1,000 Units by mouth once daily. dilTIAZem CD (CARDIZEM CD, CARTIA XT) 120 mg 24 hr capsule Take 120 mg by mouth once daily. acetaminophen-HYDROcodone (VICODIN) 5-500 mg tablet Take 1 tablet by mouth every 6 hours as needed. 1/2 tablet as needed. benzonatate (TESSALON PERLE) 100 mg capsule Take 2 capsules by mouth three times daily as needed. fenofibrate nanocrystallized (TRICOR) 145 mg tablet Take 1 tablet by mouth once daily. sertraline (ZOLOFT) 100 mg tablet 100 mg twice daily. (Patient not taking: Reported on 02/04/2022) FENOFIBRATE MICRONIZED ORAL Take by mouth. (Patient not taking: Reported on 09/28/2020 ) Quinapril-Hydrochlorothia zide 20-12.5 mg ORAL per tablet Take one(1) tablet daily. (Patient not taking: ) ZOLOFT 100 MG TAB (Patient not taking: ) WELLBUTRIN SR 200 MG TAB (Patient not taking: ) No current facility-administered medications for this visit. Allergies: Bacitracin, Ciprofloxacin, Flagyl [Metronidazole], Polymyxin [Bacitracin-Polymyxin B], and (more content not included)... Normal [facility] ----- YAA BENITEZ ([id number]) 1950 F Date Time Provider Department 01/28/22 JAKE BARBOSA During your visit today, we recorded the following information about you: Jamia Dov 01/28/2022 9:37 AM Signed [place] 01[place]28[place]. Went to [facility] ER for broken ankle. Scheduled for a 02/03/22 appt Sintia Elizondo Ma 01/28/2022 2:41 PM Signed Noted. Thanks. Allergies As of Date: 01/28/2022 Noted Allergy Reaction BACITRACIN 02/09/2019 2 - Rash CIPROFLOXACIN 02/09/2019 4 - Hives 7 - Swelling FLAGYL (METRONIDAZOLE) 02/09/2019 4 - Hives 7 - Swelling POLYMYXIN (BACITRACIN-POLYMYXIN B)02/09/2019 2 - Rash NEOSPORIN ([id number]-BX*0 08/10/2005 5 - Intolerance Date Reviewed: 11/29/2020 Reviewed by: Serene Dorado Ma - Fully Assessed Reason for Visit: Patient Update [1234] Prescriptions as of 01/28/2022 - benzonatate (TESSALON PERLE) 100 mg capsule Take 2 capsules by mouth three times daily as needed. - fenofibrate nanocrystallized (TRICOR) 145 mg tablet Take 1 tablet by mouth once daily. - sertraline (ZOLOFT) 100 mg tablet 100 mg twice daily. - dilTIAZem CD (CARDIZEM CD) 120 mg 24 hr capsule Take 120 mg by mouth once daily. - FENOFIBRATE MICRONIZED ORAL Take by mouth. - acetaminophen-HYDROcodone (VICODIN) 5-500 mg tablet Take 1 tablet by mouth every 6 hours as needed. 1/2 tablet as needed. - Quinapril-Hydrochlorothia zide 20-12.5 mg ORAL per tablet Take one(1) tablet daily. - ZOLOFT 100 MG TAB - WELLBUTRIN SR 200 MG TAB Problem List As Of Date 01/28/2022 Noted Resolved DYSPLASIA [id number] III [D06.9] 07/12/2006 Encounter Status:Closed by SINTIA ELIZONDO MA on 01/28/22 [facility] Chloride [Moles/Vol] 108 mmol/L 98-[address] [facility] Work Phone: Glucose [Mass/Vol] 84 mg/dL 74-106 [place] [facility] Work Phone: Potassium [Moles/Vol] 4.2 mmol/L 3.5-5.1 [place] [facility] Work Phone: Sodium [Moles/Vol] 138 mmol/L 136-145 [facility] Work Phone: Laboratory - Chemistry and C hemistry - challengeon 11-27-2021 CO2 [Moles/Vol] 24.0 mmol/L 21.0-32.0 [facility] Work Phone: Urea nitrogen/Creatinine [Mass ratio] 16.3 mg/mg 10-20 [facility] Work Phone: No Panel Informationon 11-27 Estimated GFR (MDRD) Amer 77 mL/min >60 [facility] Work Phone: Comment on above: GFR Calc Estimated GFR (MDRD) Non-Af Amer 64 mL/min >60 [facility] Work Phone: Comment on above: Non- GFR Calc Serum or plasma calcium iftikhar urement (mass/volume)on 11-27-2021 Calcium [Mass/Vol] 9.7 mg/dL 8.5-10.1 [facility] Work Phone: Serum or plasma creatinine m easurement (mass/volume)on 11-27-2021 Creatinine [Mass/Vol] 0.92 mg/dL 0.55-1.02 [facility] Work Phone: Comment on above: The validity of the calculated GFR & GFRAA in patients over 70 years has not been determined. Clinical correlation is essential. Serum or plasma urea nitroge n measurement (mass/volume)on 11-27-2021 Urea nitrogen [Mass/Vol] 15 mg/dL 7-18 [facility] Work Phone: Thin prep Papanicolaou smear with manual screeningon 11-27-2021 Thin prep Papanicolaou smear with manual screening 6 - [facility] Work Phone: XR Chest PA and Lateralon IMPRESSION: No acute radiographic abnormality in the lungs. Focal bulging of the anterior aortic arch may represent aneurysm or pseudoaneurysm. Nonemergent CTA chest may be obtained for further evaluation. Bench Examiner: MARGIE Transcribe Date/Time: Nov 29 2020 12:16P Dictated by : ALLISON MUNGUIA MD This examination was interpreted and the report reviewed and electronically signed by: ALLISON MUNGUIA MD on Nov 29 2020 12:20PM [facility] DIVISION OF RADIOLOGY * * *Final Report* * * DATE OF EXAM: Nov 29 2020 12:13PM WOX 5291 - XR CHEST 2V FRONTAL/LAT / PROCEDURE REASON: Cough * * * * Physician Interpretation * * * * EXAMINATION: CHEST RADIOGRAPH (2 VIEW FRONTAL & LATERAL) CLINICAL HISTORY: Cough MQ: XC2_6 EXAM DATE/TIME: 11/29/2020 12:13 PM COMPARISON: No relevant prior studies available. RESULT: Lines, tubes, and devices: None. Lungs and pleura: No consolidation. No lung mass. No pleural effusion. No pneumothorax. Cardiomediastinal silhouette: The cardiac silhouette is within normal limits. There is tortuosity of the thoracic aorta with focal bulging along the anterior aortic arch, better visualized on lateral view. Bones and soft tissues: Spine shows degenerative changes. DIVISION OF RADIOLOGY Provider, [facility] - 11/29/2020 * * *Final Report* * * DATE OF EXAM: Nov 29 2020 12:13PM WOX 5291 - XR CHEST 2V FRONTAL/LAT / PROCEDURE REASON: Cough * * * * Physician Interpretation * * * * EXAMINATION: CHEST RADIOGRAPH (2 VIEW FRONTAL & LATERAL) CLINICAL HISTORY: Cough MQ: XC2_6 EXAM DATE/TIME: 11/29/2020 12:13 PM COMPARISON: No relevant prior studies available. RESULT: Lines, tubes, and devices: None. Lungs and pleura: No consolidation. No lung mass. No pleural effusion. No pneumothorax. Cardiomediastinal silhouette: The cardiac silhouette is within normal limits. There is tortuosity of the thoracic aorta with focal bulging along the anterior aortic arch, better visualized on lateral view. Bones and soft tissues: Spine shows degenerative changes. IMPRESSION IMPRESSION: No acute radiographic abnormality in the lungs. Focal bulging of the anterior aortic arch may represent aneurysm or pseudoaneurysm. Nonemergent CTA chest may be obtained for further evaluation. Bench Examiner: MARGIE Transcribe Date/Time: Nov 29 2020 12:16P Dictated by : ALLISON MUNGUIA MD This examination was interpreted and the report reviewed and electronically signed by: ALLISON MUNGUIA MD on Nov 29 2020 12:20PM EST [facility] Radiology Study observation (narrative) [facility] XR Chest PA and LateralOrder ed By: [facility] Provider on 11-29-2020 [facility] Post Op (Colon and Rectal Gusman rgery)on 11-24-2018 Post Op (Colon and Rectal Surgery) Chief Complaint POV History of Present Illness Yaa Benitez is a 68-year-old female with a history of recurring episodes of sigmoid colon diverticulitis. The patient also had a history of superimposed Clostridium difficile colitis. She underwent Sigmoid colectomy and splenic flexure mobilization on 11/02/18. Doing well. C/o epigastric discomfort for the last couple of weeks. No N/V, F/C. She is moving her bowels 2-3 times. Review of Systems All other systems have been reviewed and are negative for complaint. Active Problems Diverticulitis, colon (562.11) (K57.32) Surgical History History of Carpal tunnel surgery History of Cataract surgery History of Eye surgery History of Temporomandibular joint surgery History of Tubal ligation Social History Never a smoker No alcohol use Allergies ciprofloxacin Recorded By: Teodora Thurman; 10/10/2018 11:49:23 AM Ciprofloxacin HCl TABS Recorded By: Teodora Thurman; 10/10/2018 11:49:23 AM Flagyl CAPS Recorded By: Teodora Thurman; 10/10/2018 11:49:23 AM Neosporin OINT Recorded By: Sintia Parikh; 10/10/2018 10:47:01 AM Current Meds Gabapentin 100 MG Oral Capsule; Take one tablet at bedtime starting 3 days prior to surgery; Therapy: [id number] to (Last Rx:[id number]) Requested for: 30Cap6913; Status: ACTIVE - Retrospective By Protocol Authorization Ordered Rx By: Marcelino Calero; Dispense: 0 Days ; #:3 Capsule; Refill: 0;For: Diverticulitis, colon; ROBERTO = N; Verified Transmission to [facility]; Last Updated By: SystemNeovasc; 10/10/2018 11:49:18 AM Hibiclens 4 % External Liquid; USE DIRECTED as preop shower; Therapy: 23Oct2018 to (Last Rx:23Oct2018) Requested for: 23Oct2018 Ordered Rx By: Asiya Mosley; Dispense: 0 Days ; #:1 X 118 ML Bottle; Refill: 0;For: Diverticulitis, colon; ROBERTO = N; Verified Transmission to [facility]; Last Updated By: LUBB-TEX; 10/23/2018 3:31:41 PM Neomycin Sulfate 500 MG Oral Tablet; take 2 tablets at 6pm, 7pm and 11pm the day before surgery; Therapy: 10Oct2018 to (Last Rx:10Oct2018) Requested for: 10Oct2018; Status: ACTIVE - Retrospective By Protocol Authorization Ordered Rx By: Marcelino Calero; Dispense: 0 Days ; #:6 Tablet; Refill: 0;For: Diverticulitis, colon; ROBERTO = N; Verified Transmission to [facility]; Last Updated By: LUBB-TEX; 10/10/2018 11:49:11 AM Aspirin 81 MG Oral Tablet Delayed Release; Therapy: (Recorded:10Oct2018) to Recorded Dispense: 0 Days ; #: Sufficient; Refill: 0; ROBERTO = N; Record; Last Updated By: Sintia Parikh; 10/10/2018 10:47:01 AM dilTIAZem HCl - 120 MG Oral Tablet; Therapy: (Recorded:10Oct2018) to Recorded Dispense: 0 Days ; #: Sufficient; Refill: 0; ROBERTO = N; Record; Last Updated By: Sintia Parikh; 10/10/2018 10:47:01 AM Fenofibrate 145 MG Oral Tablet; Therapy: (Recorded:10Oct2018) to Recorded Dispense: 0 Days ; #: Sufficient; Refill: 0; ROBERTO = N; Record; Last Updated By: Sintia Parikh; 10/10/2018 10:47:01 AM HYDROcodone-Acetaminophen 5-325 MG Oral Tablet; Therapy: (Recorded:10Oct2018) to Recorded Dispense: 0 Days ; #: Sufficient; Refill: 0; ROBERTO = N; Record; Last Updated By: Sintia Parikh; 10/10/2018 10:47:01 AM Metoprolol Tartrate 25 MG Oral Tablet; Therapy: (Recorded:[id number]) to Recorded Dispense: 0 Days ; #: Sufficient; Refill: 0; ROBERTO = N; Record; Last Updated By: Sintia Parikh; 10/10/2018 10:47:01 AM Quinapril HCl - 20 MG Oral Tablet; Therapy: (Recorded:[id number]) to Recorded Dispense: 0 Days ; #: Sufficient; Refill: 0; ROBERTO = N; Record; Last Updated By: Sintia Parikh; 10/10/2018 10:47:01 AM Sertraline HCl - 100 MG Oral Tablet; Therapy: (Recorded:[id number]) to Recorded Dispense: 0 Days ; #: Sufficient; Refill: 0; ROBERTO = N; Record; Last Updated By: Sintia Parikh; 10/10/2018 10:47:01 AM Vitals Vital Signs Recorded: 20Fhb8894 10:47AM Wpukdelgnvi72.1 F Heart Rate79 Azpadivqowh56 Mlyvmksa871 Xdagtvsmz21 Height5 ft 4 in Nzpzgk226 lb 3 oz BMI Puepslpqak02.52 BSA Calculated1.64 Physical Exam Constitutional - General appearance: In no acute distress, well appearing and well nourished. Abdomen and Pelvis: Abdomen: Non-tender, no abdominal masses. Assessment of incision: Clean, dry, and intact. helene removed in the usual fastion. Results/Data Surgical Siavvaejj89Xgw0510 10:00Marcelino Gomez NameResultFlagReference Case Surgical Pathology(Report) Name YAA BENITEZ Pathologist: ELISE PARMAR M.D. Date of Procedure: 11/02/2018 Date Received: 11/02/2018 Date Reported 11/06/2018 Submitting Physician: MARCELINO CALERO MD Location: [facility] Other External # FINAL DIAGNOSIS A. SIGMOID COLON, RESECTION: -- DIVERTICULOSIS The gross and/or microscopic findings were reviewed in conjunction with pathology resident, Tre Valencia DO. Electronically Signed Out By ELISE PARMAR M.D./AGATA By the signature on this report, the individual or group listed as making the Final Interpretation/Diagnosis certifies that they have reviewed this case. Clinical History: Diverticulitis Specimens Submitted As: A: SIGMOID COLON Gross Description: A: Received in formalin, labeled with the patient's name and hospital number and sigmoid colon, is an un-oriented segment of colon with attached mesentery and fibrofatty tissue measuring 34.5 cm in length and 4.5 cm in diameter. The serosal surface is thickened, pink-lee hyperemic, demonstrates fibrinous exudates adherence of mesentery. An area of possible adhesion is identified in the serosal surface, inked black. The bowel wall demonstrates irregular focal thickening, up to 1.1 cm. A stricture is not present. Multiple diverticula are present, ranging from 0.3 cm to 0.5 cm, does not appear perforated. The process does not extend to the lines of resection. Polyps are not present. The attached mesentery is unremarkable. Tissue is submitted to HTPF. Structural Rigger sections are submitted in 5 cassettes. SPC Summary of Cassettes: Specimen Label Site A 1-4 diverticula 5 possible lymph node [facility] [place]/11/02/2018 Diagnoses/Problems Diverticulitis, colon (562.11) (K57.32) Provider Impressions 68 y/o female with h/o diverticulits s/p sigmoid resection 11/02/18 Doing well Epigastric pain Plan: -Diet: OK to slowly advance diet in 2 weeks -Activity: as tolerated -Follow-up with Dr. Calero or me as needed -Could try pepcid for the epigastric pain if not improve f/u with PCP -All questions and concerns were answered. Encouraged to call with any question or concerns. Signatures Electronically signed by : DUGLAS Jasmine; Nov 24 2018 12:52PM EST (Author) Normal [place] Daily Progress Note-Colorect al Surgeryon 11-07-2018 Daily Progress Note-Colorectal Surgery Service: Colorectal Surgery Subjective Data: YAA BENITEZ is a 68 year old Female who is Hospital Day # 6 and POD #5 for Open sigmoid Colectomy. No acute events overnight. Denies any N/V. Having flatus and BMs. Afebrile, hemodynamically stable. Objective Data: Objective Information: T PRBPSpO2 Value37.72395595/8596% Date/Time11/07 7: 7: 7: 7: 7:23 Range(36.8C - 37.3C ) (87 - 102 ) (16 - 18 ) (116 - 129 )/ (75 - 85 ) (90% - 96% ) Highest temp of 37.3 C was recorded at 11/06 15:51 ---- Intake and Output ----- [facility] Nov 07, 2018 6:00 [id number] Nov 06, 2018 10:00 [id number] Nov 06, 2018 2:00 [id number] The Intake and Output Totals for the last 24 hours are: [facility]Outkay[facility] centerNet [id number] Physical Exam: Constitutional: NAD, laying in bed Eyes: EOMI, non icteric Respiratory/Thorax: non labored breathing on RA Cardiovascular: RR Gastrointestinal: soft, appropriately tender to palpation, ND, incision CDI, DIPESH drain in place with serosanguinous output Genitourinary: voiding freely Extremities: no LE edema Psychological: Appropriate mood and behavior Skin: warm dry no rashes Medication: Medications: Continuous Medications ------- 1. Ropivacaine 0.2%/ NaCL 0.9% 550 mL: 1100 mg Peripheral Nerve Scheduled Medications ------- 1. Acetaminophen: 650 mg Oral Every 6 Hours 2. dilTIAZem (CARDIZEM CD) Extended Release (24 hour): 120 mg Oral Every 24 Hours 3. Heparin SubCutaneous: 5000 unit(s) SubCutaneous Every 8 Hours 4. Sertraline: 100 mg Oral Daily PRN Medications ------- 1. diphenhydrAMINE: 25 mg Oral Every 24 Hours 2. Ondansetron Injectable: 4 mg IntraVenous Push Every 6 Hours 3. oxyCODONE Immediate Release: 5 mg Oral Every 4 Hours 4. oxyCODONE Immediate Release: 10 mg Oral Every 4 Hours Recent Lab Results: Results: I have reviewed these laboratory results: Complete Blood Count 06-Nov-2018 06:04:00 ResultValue White Blood Cell Count 5.9 Nucleated Erythrocyte Count 0.0 Red Blood Cell Count 3.75 L HGB 10.8 L HCT 35.5 L MCV 95 MCHC 30.4 L PLT 289 RDW-CV 16.3 H Basic Metabolic Panel 06-Nov-2018 06:04:00 ResultValue Glucose, Serum 95 NA 143 K 4.6 CL 115 H Bicarbonate, Serum 20 L Anion Gap, Serum 13 BUN 7 CREAT 0.67 GFR-Non >60 GFR- >60 Calcium, Serum 8.9 Magnesium, Serum 06-Nov-2018 06:04:00 ResultValue Magnesium, Serum 2.23 Assessment and Plan: Assessment: 68 yo F with PMHx diverticulitis s/p open sigmoid colectomy on 11/02. Plan: Neuro: tylenol, oxycodone PRN for pain dilaudid for BT, cont home sertraline CV: remains stable; cont home cardizem Pulm: stable on RA; cont Q1H incentive spirometry Heme: trend CBC Renal: voiding freely FEN/GI: soft diet, hep lock when tolerating good by mouth intake, replete lytes PRN Endo: no glycemic issues ID: no abx indicated Wound: dressings prn MSK: appreciate PT recs Prophy: SCD, SQH, PPI Wound: plan for discharge home tomorrow Seen with chief, Dr. Mojica and discussed with attending, Dr. Nicolas Garay MD PGY1 [place] [address] Signature/Cosignature/Att estation: Note Completion: Attending AttestationI reviewed the resident/fellows documentation and discussed the patient with the resident/fellow. I agree with the resident/fellows medical decision making as documented in the note. Electronic Signatures: Marcelino Calero) (Signed 07-Nov-2018 11:05) Authored: Signature/Cosignature/Att estation Co-Signer: Service, Subjective Data, Objective Data, Assessment and Plan, Signature/Cosignature/Att estation Joshua Garay (Resident)) (Signed 07-Nov-2018 10:40) Authored: Service, Subjective Data, Objective Data, Assessment and Plan, Signature/Cosignature/Att estation Last Updated: 07-Nov-2018 11:05 by Marcelino Calero) Normal [facility] BASIC METABOLIC PANELon 10-15 Anion gap [Moles/Vol] 13 mmol/L Normal - [facility] Comment on above: Performed By: #### C OAGS #### [facility] [address] [place] [address] Calcium [Mass/Vol] 8.9 mg/dL Normal 8.6 - 10.6 [facility] Comment on above: Performed By: #### C OAGS #### [facility] [address] [place] [address] Chloride [Moles/Vol] 115 mmol/L High 98 - 107 [facility] Comment on above: Performed By: #### C OAGS #### [facility] [address] [place] [address] Creatinine [Mass/Vol] 0.67 mg/dL Normal 0.50 - 1.05 [facility] Comment on above: Performed By: #### C OAGS #### [facility] [address] [place] [address] GFR- AM. >60 Normal >60 [facility] Comment on above: Result Comment: CALC ULATIONS OF ESTIMATED GFR ARE PERFORMED USING THE MDRD STUDY EQUATION FOR THE IDMS-TRACEABLE CREATININE METHODS. CLIN CHEM 2007;53:766-72 Performed By: #### C OAGS #### [facility] [address] [place] [address] GFR-NON AM. >60 Normal >60 [facility] Comment on above: Performed By: #### C OAGS #### [facility] [address] [place] [address] Glucose [Mass/Vol] 95 mg/dL Normal 74 - 99 [facility] Comment on above: Performed By: #### C OAGS #### [facility] [address] [place] [address] HCO3 (Bld) [Moles/Vol] 20 mmol/L Low 21 - 32 [facility] Comment on above: Performed By: #### C OAGS #### [facility] [address] [place] [address] Potassium [Moles/Vol] 4.6 mmol/L Normal 3.5 - 5.3 [facility] Comment on above: Performed By: #### C OAGS #### [facility] [address] [place] [address] Sodium [Moles/Vol] 143 mmol/L Normal 136 - 145 [facility] Comment on above: Performed By: #### C OAGS #### [facility] [address] [place] [address] Urea nitrogen [Mass/Vol] 7 mg/dL Normal 6 - 23 [facility] Comment on above: Performed By: #### C OAGS #### [facility] [address] [place] [address] CBCon 11-06-2018 Erythrocyte distribution width (RBC) [Ratio] 16.3 % High 11.5 - 14.5 [facility] Comment on above: Performed By: #### B MP #### [facility] [address] [place] [address] Hematocrit (Bld) [Volume fraction] 35.5 % Low 36.0 - 46.0 [facility] Comment on above: Performed By: #### B MP #### [facility] [address] [place] [address] Hemoglobin (Bld) [Mass/Vol] 10.8 g/dL Low 12.0 - 16.0 [facility] Comment on above: Performed By: #### B MP #### [facility] [address] [place] [address] MCHC (RBC) [Mass/Vol] 30.4 g/dL Low 32.0 - 36.0 [facility] Comment on above: Performed By: #### B MP #### [facility] [address] [place] [address] MCV (RBC) [Entitic vol] 95 fL Normal 80 - 100 [facility] Comment on above: Performed By: #### B MP #### [facility] [address] [place] [address] Nucleated RBC/100 WBC (Bld) [Ratio] 0.0 /100 WBC Normal 0.0-0.0 [facility] Comment on above: Performed By: #### B MP #### [facility] [address] [place] [address] Platelets (Bld) [#/Vol] 289 10*3/uL Normal 150 - 450 [facility] Comment on above: Performed By: #### B MP #### [facility] [address] [place] [address] RBC (Bld) [#/Vol] 3.75 x10E12/L Low 4.00 - 5.20 [facility] Comment on above: Performed By: #### B MP #### [facility] [address] [place] [address] WBC (Bld) [#/Vol] 5.9 10*3/uL Normal 4.4 - 11.3 [facility] Comment on above: Performed By: #### B MP #### [facility] [address] [place] [address] Daily Progress Note-Colorect al Surgeryon 11-06-2018 Daily Progress Note-Colorectal Surgery Service: Colorectal Surgery Subjective Data: YAA BENITEZ is a 68 year old Female who is Hospital Day # 5 and POD #4 for Open sigmoid Colectomy. No acute events overnight. Denies any N/V. Having flatus and BMs. Afebrile, hemodynamically stable. Objective Data: Objective Information: T PRBPSpO2 Value36.95408699/9596% Date/Time11/06 8: 8: 8: 8: 8:28 Range(36.6C - 37C ) (81 - 101 ) (16 - 18 ) (121 - 153 )/ (78 - 97 ) (96% - 97% ) Highest temp of 37 C was recorded at 11/05 19:20 ---- Intake and Output ----- Mn/Dy/Year TimeIntakeOutputNet Nov 06, 2018 6:00 [id number] Nov 05, 2018 10:00 [id number] Nov 05, 2018 2:00 [id number] The Intake and Output Totals for the last 24 hours are: IntakeOutputNet [id number] Physical Exam: Constitutional: NAD, laying in bed Eyes: EOMI, non icteric Respiratory/Thorax: non labored breathing on RA Cardiovascular: RR Gastrointestinal: soft, appropriately tender to palpation, ND, incision CDI Genitourinary: voiding freely Extremities: no LE edema Psychological: Appropriate mood and behavior Skin: warm dry no rashes Medication: Medications: Continuous Medications ------- 1. Ropivacaine 0.2%/ NaCL 0.9% 550 mL: 1100 mg Peripheral Nerve Scheduled Medications ------- 1. Acetaminophen: 650 mg Oral Every 6 Hours 2. dilTIAZem (CARDIZEM CD) Extended Release (24 hour): 120 mg Oral Every 24 Hours 3. Heparin SubCutaneous: 5000 unit(s) SubCutaneous Every 8 Hours 4. Sertraline: 100 mg Oral Daily PRN Medications ------- 1. diphenhydrAMINE Injectable: 25 mg IntraVenous Push Every 4 Hours 2. Ondansetron Injectable: 4 mg IntraVenous Push Every 6 Hours 3. oxyCODONE Immediate Release: 5 mg Oral Every 4 Hours 4. oxyCODONE Immediate Release: 10 mg Oral Every 4 Hours Recent Lab Results: Results: I have reviewed these laboratory results: Complete Blood Count 06-Nov-2018 06:04:00 ResultValue White Blood Cell Count 5.9 Nucleated Erythrocyte Count 0.0 Red Blood Cell Count 3.75 L HGB 10.8 L HCT 35.5 L MCV 95 MCHC 30.4 L PLT 289 RDW-CV 16.3 H Basic Metabolic Panel 06-Nov-2018 06:04:00 ResultValue Glucose, Serum 95 NA 143 K 4.6 CL 115 H Bicarbonate, Serum 20 L Anion Gap, Serum 13 BUN 7 CREAT 0.67 GFR-Non >60 GFR- >60 Calcium, Serum 8.9 Magnesium, Serum 06-Nov-2018 06:04:00 ResultValue Magnesium, Serum 2.23 Assessment and Plan: Assessment: 68 yo F with PMHx diverticulitis s/p open sigmoid colectomy on 11/02. Plan: Neuro: tylenol, oxycodone PRN for pain dilaudid for BT, cont home sertraline CV: remains stable; cont home cardizem Pulm: stable on RA; cont Q1H incentive spirometry Heme: trend CBC Renal: voiding freely FEN/GI: soft diet, hep lock when tolerating good by mouth intake, replete lytes PRN Endo: no glycemic issues ID: no abx indicated Wound: dressings prn MSK: appreciate PT recs Prophy: SCD, SQH, PPI Wound: dressings as needed dc tomorrow Seen with chief, Dr. Mojica and discussed with attending, Dr. Nicolas Garay MD PGY1 [place] [id number] Signature/Cosignature/Att estation: Note Completion: Attending AttestationI saw and evaluated the patient. I personally obtained the laguna and critical portions of the history and physical exam or was physically present for laguna and critical portions performed by the resident/fellow. I reviewed the resident/fellows documentation and discussed the patient with the resident/fellow. I agree with the resident/fellows medical decision making as documented in the note. I personally evaluated the patient [id number] Electronic Signatures: Marcelino Calero) (Signed 06-Nov-2018 11:04) Authored: Signature/Cosignature/Att estation Co-Signer: Service, Subjective Data, Objective Data, Assessment and Plan, Signature/Cosignature/Att estation Joshua Garay (Resident)) (Signed 06-Nov-2018 10:02) Authored: Service, Subjective Data, Objective Data, Assessment and Plan, Signature/Cosignature/Att estation Last Updated: 06-Nov-2018 11:04 by Marcelino Calero) [facility] Discharge [id number] Discharge Profile2 Discharge Orders: Anticipated Discharge Date: Anticipated Discharge [id number] Problem List: Admitting Dx: History of diverticulitis: Catalog Name: Personal history of other diseases of the digestive system Additional Dx: Diverticulitis of intestine without perforation or abscess without bleeding: Catalog Name: Diverticulitis of intestine, part unspecified, without perforation or abscess without bleeding Significant Events: Surgical Procedure: Clinical Events This Visit, 02-Nov-2018, Open sigmoid Colectomy Hospital Providers: Provider RoleProvider Name Marcelino Peguero Activity: activity as tolerated. May shower. May return to school/work Instructions: May drive. while not taking narcotics. No pushing, pulling, or lifting objects greater than 20 pounds for 4 week(s). Diet: Dietresume normal diet Diet Consistency/Texturesoft, Avoid raw fruits and vegetables for 2 weeks and slowly advance into diet as tolerated. Appetitie will return slowly, eat smaller more frequent meals at first, push away from table once full. Encourage FluidsDrink plenty of a variety of fluids to prevent dehydration. Signs of dehydration are: dry mouth, dark yellow urine in small amounts, and dizziness with change in position or increased feeling of weakness/tiredness. Additive/Supplement 1: Supplement. Boost Plus 1 serving by mouth 1-2 times a day. Wound Care 1: Wound SiteMidline incision Wound Typesurgical incision Cleanse Withsoap and water, May shower daily Cover Withno dressing, leave open to air Instructionsno lotions, creams, or tub soaks Other InstructionsMay shower, pat incision line dry and leave open to air; may cover incision with gauze if the helene rub against clothing. Avoid scrubbing, direct water pressure to the incision until it is healed. Avoid tub baths, hot tubs and swimming until the incision is healed. Wound Care 2: Wound Siteabdomen - former drain site Wound Typesurgical incision Change Dressing2 times, a day, and as needed Cleanse Withsoap and water, May shower daily Cover [id number] gauze Tape Withpaper tape Instructionsno lotions, creams, or tub soaks Other InstructionsYou may have some yellow-pink drainage from the former drain site - this is normal and to be expected. Cover the drain site with clean gauze and hold in place with paper tape. When the drain site is no longer draining fluid, you may leave it open to the air or cover it with a Band-aid until it is healed. You may shower daily. Call Provider If (Homegoing Patients): Fever of 100.4 F (38 C) or higher. Chills. Vomiting (throwing up) and not able to eat or drink for 12 hours. Any new concerning symptoms. If you have questions or concerns, call Dr. Calero's office at: [phone], option 2. This phone number is answered 06/12. If it is after hours, the service will answer and page the on-call physician to return your call. Hospital Course (Home Care/Gold Form): Hospital Course: Hospital Course: include significant abnormal lab values Ms. Benitez is a 68 year-old female with a past medical history of chronic diverticulitis who underwent an open sigmoid colectomy. Postoperatively, patient remained afebrile and hemodynamically stable. Patient was slowly advanced to a clear liquid diet and then soft diet, which she tolerated without any nausea or vomiting. Patient had a gonzales that was removed POD-1 after which time she had adequate urine output. Patient was restarted on all of her home meds. Patient had a midline abdominal wound that remained clean, dry, and intact with no drainage or dehiscence. Patient also had an abdominal Parvez-Dent drain in the left lower quadrant that was kept in place at the time of discharge, and patient was given instructions for drain care by nursing staff. Patient was successfully discharged home on 11/07/2018 without any issues and given instructions for follow up in the outpatient surgery clinic with Dr. Calero. Provider FINAL REVIEW of Orders: Final Review: Final Review of Medication Reconciliation and Orders Completedby DUGLAS Lockhart CNP at 06-Nov-2018 17:09:29 Name/Contact Info for Questions About Discharge OrdersOhio[facility] Col[facility] Service, [place] Service, pager [phone] Appointments: Follow-Up Appointment 01: Physician/Dept/ServiceMs. Shruthi Calero - Colorectal Surgeon Call to Schedule in2 weeks Scheduled Date/[id number] 11:30 [facility] [address] [place] [address] Phone [phone], option 2 CommentsPostoperative follow-up appointment Electronic Signatures: Sparkle Camacho CNP (PA[employer]ATION DEPARTMENT MANAGER-ARCHITECT MANAGER) (Signed 07-Nov-2018 10:32) Authored: Discharge Orders, Hospital Course (Home Care/Gold Form), Provider FINAL REVIEW of Orders, Appointments Joshua Garay (Resident)) (Signed 06-Nov-2018 13:07) Authored: Discharge Orders, Hospital Course (Home Care/Gold Form), Provider FINAL REVIEW of Orders, Appointments, Gold Form - Materials Director Summary Last Updated: 07-Nov-2018 10:32 by Sparkle Camacho CNP (PAY STATION DEPARTMENT MANAGER-ARCHITECT MANAGER) Normal [facility] MAGNESIUMon 11-06-2018 Magnesium [Mass/Vol] 2.23 mg/dL Normal 1.60 - 2.40 [facility] Comment on above: Performed By: #### C OAGS #### [facility] [address] [place] [address] BASIC METABOLIC PANELon 10-15 Anion gap [Moles/Vol] 10 mmol/L Normal 10 - 20 [facility] Comment on above: Performed By: #### B MP #### [facility] [address] [place] [address] Calcium [Mass/Vol] 8.5 mg/dL Low 8.6 - 10.6 [facility] Comment on above: Performed By: #### B MP #### [facility] [address] [place] [address] Chloride [Moles/Vol] 112 mmol/L High 98 - 107 [facility] Comment on above: Performed By: #### B MP #### [facility] [address] [place] [address] Creatinine [Mass/Vol] 0.57 mg/dL Normal 0.50 - 1.05 [facility] Comment on above: Performed By: #### B MP #### [facility] [address] [place] [address] GFR- AM. >60 Normal >60 [facility] Comment on above: Result Comment: CALC ULATIONS OF ESTIMATED GFR ARE PERFORMED USING THE MDRD STUDY EQUATION FOR THE IDMS-TRACEABLE CREATININE METHODS. CLIN CHEM 2007;53:766-72 Performed By: #### B MP #### [facility] [address] [place] [address] GFR-NON AM. >60 Normal >60 [facility] Comment on above: Performed By: #### B MP #### [facility] [address] [place] [address] Glucose [Mass/Vol] 104 mg/dL High 74 - 99 [facility] Comment on above: Performed By: #### B MP #### [facility] [address] [place] [address] HCO3 (Bld) [Moles/Vol] 23 mmol/L Normal 21 - 32 [facility] Comment on above: Performed By: #### B MP #### [facility] [address] [place] [address] Potassium [Moles/Vol] 3.0 mmol/L Low 3.5 - 5.3 [facility] Comment on above: Performed By: #### B MP #### [facility] [address] [place] [address] Sodium [Moles/Vol] 142 mmol/L Normal 136 - 145 [facility] Comment on above: Performed By: #### B MP #### [facility] [id number] [place] [address] Urea nitrogen [Mass/Vol] 6 mg/dL Normal 6 - 23 [facility] Comment on above: Performed By: #### B MP #### [facility] [address] [place] [address] CBCon 11-05-2018 Erythrocyte distribution width (RBC) [Ratio] 15.9 % High 11.5 - 14.5 [facility] Comment on above: Performed By: #### B MP #### [facility] [address] [place] [address] Hematocrit (Bld) [Volume fraction] 33.4 % Low 36.0 - 46.0 [facility] Comment on above: Performed By: #### B MP #### [facility] [address] [place] [address] Hemoglobin (Bld) [Mass/Vol] 10.3 g/dL Low 12.0 - 16.0 [facility] Comment on above: Performed By: #### B MP #### [facility] [address] [place] [address] MCHC (RBC) [Mass/Vol] 30.8 g/dL Low 32.0 - 36.0 [facility] Comment on above: Performed By: #### B MP #### [facility] [address] [place] [address] MCV (RBC) [Entitic vol] 95 fL Normal 80 - 100 [facility] Comment on above: Performed By: #### B MP #### [facility] [address] [place] [address] Nucleated RBC/100 WBC (Bld) [Ratio] 0.0 /100 WBC Normal 0.0-0.0 [facility] Comment on above: Performed By: #### B MP #### [facility] [address] [place] [address] Platelets (Bld) [#/Vol] 234 10*3/uL Normal 150 - 450 [facility] Comment on above: Performed By: #### B MP #### [facility] [address] [place] [address] RBC (Bld) [#/Vol] 3.52 x10E12/L Low 4.00 - 5.20 [facility] Comment on above: Performed By: #### B MP #### [facility] [address] [place] [address] WBC (Bld) [#/Vol] 6.3 10*3/uL Normal 4.4 - 11.3 [facility] Comment on above: Performed By: #### B MP #### [facility] [address] [place] [address] Daily Progress Note-Anesthes ia - Acute Painon 11-05-2018 Daily Progress Note-Anesthesia - Acute Pain Service: Anesthesia - Pain Subjective Data: YAA BENITEZ is a 68 year old Female who is Hospital Day # 4 and POD #3 for Open sigmoid Colectomy. No acute events overnight. Patient states she has moderate pain that is improved from yesterday. New oozing at her DIPESH drain site after returning from the bathroom this morning, her drain dressing is intact, with sanguinous fluid. DIPESH drain with small amount of sanguinous fluid, notified the patient's nurse to tell the surgical team. Objective Data: Objective Information: ---- Intake and Output ----- Mn/Dy/Year TimeIntakeOutputNet Nov 05, 2018 6:00 [id number] Nov 04, 2018 10:00 [id number] Nov 04, 2018 2:00 [id number] The Intake and Output Totals for the last 24 hours are: IntakeOutputNet [id number] Physical Exam: Constitutional: Well developed, awake/alert/oriented x3, no distress, alert and cooperative Eyes: EOMI, clear sclera ENMT: mucous membranes moist, no apparent injury, no lesions seen Respiratory/Thorax: Patent airways, normal breath sounds with good chest expansion, thorax symmetric Cardiovascular: Regular, rate and rhythm, no murmurs, Gastrointestinal: Nondistended, soft, non-tender, no rebound tenderness or guarding, no masses palpable, no organomegaly, +BS, no bruits Musculoskeletal: ROM intact, no joint swelling, normal strength Neurological: alert and oriented x3, intact senses, motor, response and reflexes, normal strength Psychological: Appropriate mood and behavior Skin: Warm and dry, no lesions, no rashes Medication: Medications: Continuous Medications ------- 1. Dextrose 5% - NaCL 0.45% Infusion: 1000 mL IntraVenous 2. Ropivacaine 0.2%/ NaCL 0.9% 550 mL: 1100 mg Peripheral Nerve Scheduled Medications ------- 1. Acetaminophen: 650 mg Oral Every 6 Hours 2. dilTIAZem (CARDIZEM CD) Extended Release (24 hour): 120 mg Oral Every 24 Hours 3. Heparin SubCutaneous: 5000 unit(s) SubCutaneous Every 8 Hours 4. Sertraline: 100 mg Oral Daily PRN Medications ------- 1. Ondansetron Injectable: 4 mg IntraVenous Push Every 6 Hours 2. oxyCODONE Immediate Release: 5 mg Oral Every 4 Hours 3. oxyCODONE Immediate Release: 10 mg Oral Every 4 Hours Recent Lab Results: Results: I have reviewed these laboratory results: Basic Metabolic Panel 05-Nov-2018 04:41:00 ResultValue Glucose, Serum 104 H NA 142 K 3.0 L CL 112 H Bicarbonate, Serum 23 Anion Gap, Serum 10 BUN 6 CREAT 0.57 GFR-Non >60 GFR- >60 Calcium, Serum 8.5 L Complete Blood Count 05-Nov-2018 04:41:00 ResultValue White Blood Cell Count 6.3 Nucleated Erythrocyte Count 0.0 Red Blood Cell Count 3.52 L HGB 10.3 L HCT 33.4 L MCV 95 MCHC 30.8 L PLT 234 RDW-CV 15.9 H Assessment and Plan: Assessment: 68 yo with PMH of diverticulitis who is s/p sigmoid colectomy with Dr. Calero on 11/02/18. Acute Pain consulted for block for postoperative pain control. Plan - B/L QL block preoperatively with catheters placed and On-Q ball with Ropivacaine 0.2%/NaCl 0.9% 550mL, Rate 4 cc/hr -> Removed catheters today - pain meds per primary team - Will sign off, please contact with further questions or concerns Rebecca Pickard CA2/PGY3 [place] [phone] ph [phone] Signature/Cosignature/Att estation: Note Completion: Attending AttestationI saw and evaluated the patient. I personally obtained the laguna and critical portions of the history and physical exam or was physically present for laguna and critical portions performed by the resident/fellow. I reviewed the resident/fellows documentation and discussed the patient with the resident/fellow. I agree with the resident/fellows medical decision making as documented in the note. I personally evaluated the patient [id number] Electronic Signatures: Jacob Walker) (Signed 08-Nov-2018 17:09) Authored: Signature/Cosignature/Att estation Co-Signer: Service, Subjective Data, Objective Data, Assessment and Plan, Signature/Cosignature/Att estation Rebecca Pickard (Resident)) (Signed 05-Nov-2018 08:50) Authored: Service, Subjective Data, Objective Data, Assessment and Plan, Signature/Cosignature/Att estation Last Updated: 08-Nov-2018 17:09 by Jacob Walker) Normal [facility] Daily Progress Note-Colorect al Surgeryon 11-05-2018 Daily Progress Note-Colorectal Surgery Service: Colorectal Surgery Subjective Data: YAA BENITEZ is a 68 year old Female who is Hospital Day # 4 and POD #3 for Open sigmoid Colectomy. No acute events overnight. Denies any N/V. Having flatus and diarrhea. Objective Data: Objective Information: ---- Intake and Output ----- Mn/Dy/Year TimeIntakeOutputNet Nov 05, 2018 6:00 [id number] Nov 04, 2018 10:00 [id number] Nov 04, 2018 2:00 [id number] The Intake and Output Totals for the last 24 hours are: IntakeOutputNet [id number] T PRBPSpO2 Value36.19397099/8997% Date/Time11/05 7: 7: 7: 7: 7:39 Range(36.8C - 37.5C ) (65 - 90 ) (16 - 20 ) (124 - 149 )/ (75 - 89 ) (95% - 97% ) Highest temp of 37.5 C was recorded at 11/04 19:52 Physical Exam: Constitutional: NAD, laying in bed Eyes: EOMI, non icteric Respiratory/Thorax: non labored breathing, symmetric chest rise Cardiovascular: RR Gastrointestinal: soft, NT, ND Genitourinary: voiding Extremities: no LE edema Psychological: Appropriate mood and behavior Skin: warm dry no rashes Medication: Medications: CARDIOVASCULAR AGENTS: 1. dilTIAZem (CARDIZEM CD) Extended Release (24 hour): 120 mg Oral Every 24 Hours CENTRAL NERVOUS SYSTEM AGENTS: 1. Acetaminophen: 650 mg Oral Every 6 Hours 2. oxyCODONE Immediate Release: 5 mg Oral Every 4 Hours PRN 3. oxyCODONE Immediate Release: 10 mg Oral Every 4 Hours PRN 4. Ondansetron Injectable: 4 mg IntraVenous Push Every 6 Hours PRN COAGULATION MODIFIERS: 1. Heparin SubCutaneous: 5000 unit(s) SubCutaneous Every 8 Hours MISCELLANEOUS AGENTS: 1. Ropivacaine 0.2%/ NaCL 0.9% 550 mL: 1100 mg Peripheral Nerve NUTRITIONAL PRODUCTS: 1. Potassium Chloride 20 mEq/Sterile Water 100 mL Premix IVPB: 20 mEq IntraVenous Piggyback Every 2 Hours 2. Potassium Chloride Extended Release: 20 mEq Oral 2 Times a Day PSYCHOTHERAPEUTIC AGENTS: 1. Sertraline: 100 mg Oral Daily Assessment and Plan: Assessment: 68 yo F with PMHx diverticulitis s/p open sigmoid colectomy on 11/02. Plan: Neuro: tylenol, oxycodone PRN for pain dilaudid for BT, cont home sertraline CV: remains stable; cont home cardizem Pulm: stable on RA; cont Q1H incentive spirometry Heme: trend CBC Renal: voiding FEN/GI: soft diet, hep lock when tolerating good by mouth intake Endo: no issues ID: no abx Wound: dressings prn Prophy: SCD, HepSQ, PPI Dispo: RNF, possible dc tomorrow Fredo Askew MD Colorectal Surgery [place] pager #[phone] Signature/Cosignature/Att estation: Note Completion: Attending AttestationI reviewed the resident/fellows documentation and discussed the patient with the resident/fellow. I agree with the resident/fellows medical decision making as documented in the note. Electronic Signatures: Marcelino Calero) (Signed 06-Nov-2018 08:09) Authored: Signature/Cosignature/Att estation Co-Signer: Service, Subjective Data, Objective Data, Assessment and Plan, Signature/Cosignature/Att estation Fredo Askew (Fellow)) (Signed 05-Nov-2018 10:18) Authored: Service, Subjective Data, Objective Data, Assessment and Plan, Signature/Cosignature/Att estation Last Updated: 06-Nov-2018 08:09 by Marcelino Calero) Normal [facility] Daily Progress Note-Anesthes ia - Acute Painon 11-04-2018 Daily Progress Note-Anesthesia - Acute Pain Service: Anesthesia - Pain Subjective Data: YAA BENITEZ is a 68 year old Female who is Hospital Day # 3 and POD #2 for Open sigmoid Colectomy. No acute events overnight. Patient states she has moderate pain that is improved from yesterday. Rates her pain as 6/10. OnQ ball will likely run out this afternoon or overnight, patient is aware and we had a discussion about taking PO pain medications in preparation for discharge. Objective Data: Objective Information: ---- Intake and Output ----- Mn/Dy/Year TimeIntakeOutputNet Nov 04, 2018 6:00 [id number] Nov 03, 2018 10:00 [id number] Nov 03, 2018 2:00 [id number] The Intake and Output Totals for the last 24 hours are: IntakeOutputNet [id number] Physical Exam: Constitutional: Well developed, awake/alert/oriented x3, no distress, alert and cooperative Eyes: EOMI, clear sclera ENMT: mucous membranes moist, no apparent injury, no lesions seen Respiratory/Thorax: Patent airways, normal breath sounds with good chest expansion, thorax symmetric Cardiovascular: Regular, rate and rhythm, no murmurs, Gastrointestinal: Nondistended, soft, non-tender, no rebound tenderness or guarding, no masses palpable, no organomegaly, +BS, no bruits Musculoskeletal: ROM intact, no joint swelling, normal strength Neurological: alert and oriented x3, intact senses, motor, response and reflexes, normal strength Psychological: Appropriate mood and behavior Skin: Warm and dry, no lesions, no rashes Medication: Medications: Continuous Medications ------- 1. Dextrose 5% - NaCL 0.45% Infusion: 1000 mL IntraVenous 2. Ropivacaine 0.2%/ NaCL 0.9% 550 mL: 1100 mg Peripheral Nerve Scheduled Medications ------- 1. Acetaminophen: 650 mg Oral Every 6 Hours 2. dilTIAZem (CARDIZEM CD) Extended Release (24 hour): 120 mg Oral Every 24 Hours 3. Heparin SubCutaneous: 5000 unit(s) SubCutaneous Every 8 Hours 4. Sertraline: 100 mg Oral Daily PRN Medications ------- 1. Ondansetron Injectable: 4 mg IntraVenous Push Every 6 Hours 2. oxyCODONE Immediate Release: 5 mg Oral Every 4 Hours 3. oxyCODONE Immediate Release: 10 mg Oral Every 4 Hours Recent Lab Results: Results: I have reviewed these laboratory results: Basic Metabolic Panel 03-Nov-2018 05:54:00 ResultValue Glucose, Serum 105 H NA 142 K 3.6 CL 108 H Bicarbonate, Serum 24 Anion Gap, Serum 14 BUN 21 CREAT 0.84 GFR-Non >60 GFR- >60 Calcium, Serum 9.1 Complete Blood Count 03-Nov-2018 05:54:00 ResultValue White Blood Cell Count 8.1 Nucleated Erythrocyte Count 0.0 Red Blood Cell Count 3.96 L HGB 11.8 L HCT 37.4 MCV 94 MCHC 31.6 L PLT 244 RDW-CV 16.1 H Assessment and Plan: Assessment: 68 yo with PMH of diverticulitis who is s/p sigmoid colectomy with Dr. Calero on 11/02/18. Acute Pain consulted for block for postoperative pain control. Plan - B/L QL block preoperatively with catheters placed and On-Q ball with Ropivacaine 0.2%/NaCl 0.9% 550mL, Rate 4 cc/hr - OnQ medication will not interfere with pain medication prescribed by primary team - Acute pain service will follow while catheters in place - pain meds per primary - pain 10/23 today - OnQ ball will likely run out today or tonight, patient is aware, we will likely remove catheters tomorrow if patient is tolerating her pain well Rebecca Pickard CA2/PGY3 [place] [phone] ph [phone] Signature/Cosignature/Att estation: Note Completion: Attending AttestationI saw and evaluated the patient. I personally obtained the laguna and critical portions of the history and physical exam or was physically present for laguna and critical portions performed by the resident/fellow. I reviewed the resident/fellows documentation and discussed the patient with the resident/fellow. I agree with the resident/fellows medical decision making as documented in the note. I personally evaluated the patient [id number] Comments/ Additional Findings i saw this patient at 9:10 am Electronic Signatures: Jacob Walker) (Signed 04-Nov-2018 14:42) Authored: Signature/Cosignature/Att estation Co-Signer: Service, Subjective Data, Objective Data, Assessment and Plan, Signature/Cosignature/Att estation Rebecca Pickard (Resident)) (Signed 04-Nov-2018 10:43) Authored: Service, Subjective Data, Objective Data, Assessment and Plan, Signature/Cosignature/Att estation Last Updated: 04-Nov-2018 14:42 by Jacob Walker) Normal [facility] Daily Progress Note-Colorect al Surgeryon 11-04-2018 Daily Progress Note-Colorectal Surgery Service: Colorectal Surgery Subjective Data: YAA BENITEZ is a 68 year old Female who is Hospital Day # 3 and POD #2 for Open sigmoid Colectomy. No acute events overnight. Denies any N/V. Having flatus and BM. Objective Data: Objective Information: ---- Intake and Output ----- Mn/Dy/Year TimeIntakeOutputNet Nov 04, 2018 6:00 [id number] Nov 03, 2018 10:00 [id number] Nov 03, 2018 2:00 [id number] The Intake and Output Totals for the last 24 hours are: IntakeOutputNet [id number] T PRBPSpO2 Value36.06643783/8496% Date/Time11/04 7: 7: 7: 7: 7:28 Range(36.3C - 37.2C ) (30 - 87 ) (16 - 20 ) (110 - 135 )/ (59 - 84 ) (95% - 98% ) Highest temp of 37.2 C was recorded at 11/04 0:22 Physical Exam: Constitutional: NAD, laying in bed Eyes: EOMI, non icteric Respiratory/Thorax: non labored breathing, symmetric chest rise Cardiovascular: RR Gastrointestinal: soft, NT, ND Genitourinary: voiding Extremities: no LE edema Psychological: Appropriate mood and behavior Skin: warm dry no rashes Medication: Medications: CARDIOVASCULAR AGENTS: 1. dilTIAZem (CARDIZEM CD) Extended Release (24 hour): 120 mg Oral Every 24 Hours CENTRAL NERVOUS SYSTEM AGENTS: 1. Acetaminophen: 650 mg Oral Every 6 Hours 2. oxyCODONE Immediate Release: 5 mg Oral Every 4 Hours PRN 3. oxyCODONE Immediate Release: 10 mg Oral Every 4 Hours PRN 4. Ondansetron Injectable: 4 mg IntraVenous Push Every 6 Hours PRN COAGULATION MODIFIERS: 1. Heparin SubCutaneous: 5000 unit(s) SubCutaneous Every 8 Hours MISCELLANEOUS AGENTS: 1. Ropivacaine 0.2%/ NaCL 0.9% 550 mL: 1100 mg Peripheral Nerve NUTRITIONAL PRODUCTS: 1. Dextrose 5% - NaCL 0.45% Infusion: 1000 mL IntraVenous PSYCHOTHERAPEUTIC AGENTS: 1. Sertraline: 100 mg Oral Daily Assessment and Plan: Assessment: 68 yo F with PMHx diverticulitis s/p open sigmoid colectomy on 11/02. Plan: Neuro: tylenol, oxycodone PRN for pain dilaudid for BT, cont home sertraline CV: remains stable; cont home cardizem Pulm: stable on RA; cont Q1H incentive spirometry Heme: trend CBC Renal: voiding FEN/GI: soft diet, hep lock when tolerating good by mouth intake Endo: no issues ID: no abx Wound: dressings prn Prophy: SCD, HepSQ, PPI Dispo: MEGAN Yoo Ma, MD Colorectal Surgery [place] pager #[phone] SCIP Measures: Urinary Catheter Removed Post-Op Day 2: yes Patient on Beta Anika Prior to Admission: no Prophylactic antibiotics scheduled to be discontinued with 24 hr of anesthesia end time (48 hr for cardiac surgery): N/A, patient not on prophylactic antibiotics Signature/Cosignature/Att estation: Note Completion: Attending AttestationI reviewed the resident/fellows documentation and discussed the patient with the resident/fellow. I agree with the resident/fellows medical decision making as documented in the note. Electronic Signatures: Marcelino Calero) (Signed 06-Nov-2018 08:09) Authored: Signature/Cosignature/Att estation Co-Signer: Service, Subjective Data, Objective Data, Assessment and Plan, SCIP Measures, Signature/Cosignature/Att estation Fredo Askew (Fellow)) (Signed 04-Nov-2018 10:43) Authored: Service, Subjective Data, Objective Data, Assessment and Plan, SCIP Measures, Signature/Cosignature/Att estation Last Updated: 06-Nov-2018 08:09 by Marcelino Calero) Normal [facility] BASIC METABOLIC PANELon 06-2 Anion gap [Moles/Vol] 14 mmol/L Normal 10 - 20 [facility] Comment on above: Performed By: #### B MP #### [facility] [address] [place] [address] Calcium [Mass/Vol] 9.1 mg/dL Normal 8.6 - 10.6 [facility] Comment on above: Performed By: #### B MP #### [facility] [address] [place] [address] Chloride [Moles/Vol] 108 mmol/L High 98 - 107 [facility] Comment on above: Performed By: #### B MP #### [facility] [address] [place] [address] Creatinine [Mass/Vol] 0.84 mg/dL Normal 0.50 - 1.05 [facility] Comment on above: Performed By: #### B MP #### [facility] [address] [place] [address] GFR- AM. >60 Normal >60 [facility] Comment on above: Result Comment: CALC ULATIONS OF ESTIMATED GFR ARE PERFORMED USING THE MDRD STUDY EQUATION FOR THE IDMS-TRACEABLE CREATININE METHODS. CLIN CHEM 2007;53:766-72 Performed By: #### B MP #### [facility] [address] [place] [address] GFR-NON AM. >60 Normal >60 [facility] Comment on above: Performed By: #### B MP #### [facility] [address] [place] [address] Glucose [Mass/Vol] 105 mg/dL High 74 - 99 [facility] Comment on above: Performed By: #### B MP #### [facility] [address] [place] [address] HCO3 (Bld) [Moles/Vol] 24 mmol/L Normal 21 - 32 [facility] Comment on above: Performed By: #### B MP #### [facility] [address] [place] [address] Potassium [Moles/Vol] 3.6 mmol/L Normal 3.5 - 5.3 [facility] Comment on above: Performed By: #### B MP #### [facility] [address] [place] [address] Sodium [Moles/Vol] 142 mmol/L Normal 136 - 145 [facility] Comment on above: Performed By: #### B MP #### [facility] [address] [place] [address] Urea nitrogen [Mass/Vol] 21 mg/dL Normal 6 - 23 [facility] Comment on above: Performed By: #### B MP #### [facility] [address] [place] [address] CBCon 11-03-2018 Erythrocyte distribution width (RBC) [Ratio] 16.1 % High 11.5 - 14.5 [facility] Comment on above: Performed By: #### B MP #### [facility] [address] [place] [address] Hematocrit (Bld) [Volume fraction] 37.4 % Normal 36.0 - 46.0 [facility] Comment on above: Performed By: #### B MP #### [facility] [address] [place] [address] Hemoglobin (Bld) [Mass/Vol] 11.8 g/dL Low 12.0 - 16.0 [facility] Comment on above: Performed By: #### B MP #### [facility] [address] [place] [address] MCHC (RBC) [Mass/Vol] 31.6 g/dL Low 32.0 - 36.0 [facility] Comment on above: Performed By: #### B MP #### [facility] [address] [place] [address] MCV (RBC) [Entitic vol] 94 fL Normal 80 - 100 [facility] Comment on above: Performed By: #### B MP #### [facility] [address] [place] [address] Nucleated RBC/100 WBC (Bld) [Ratio] 0.0 /100 WBC Normal 0.0-0.0 [facility] Comment on above: Performed By: #### B MP #### [facility] [address] [place] [address] Platelets (Bld) [#/Vol] 244 10*3/uL Normal 150 - 450 [facility] Comment on above: Performed By: #### B MP #### [facility] [address] [place] [address] RBC (Bld) [#/Vol] 3.96 x10E12/L Low 4.00 - 5.20 [facility] Comment on above: Performed By: #### B MP #### [facility] [address] [place] [address] WBC (Bld) [#/Vol] 8.1 10*3/uL Normal 4.4 - 11.3 [facility] Comment on above: Performed By: #### B #### [facility] [address] [place] [address] Daily Progress Note-Anesthes ia - Painon 11-03-2018 Daily Progress Note-Anesthesia - Pain Service: Anesthesia - Pain Subjective Data: YAA BENITEZ is a 68 year old Female who is Hospital Day # 2 and POD #1 for Open sigmoid Colectomy. no events overnight. Objective Data: Objective Information: ---- Intake and Output ----- Mn/Dy/Year TimeIntakeOutputNet Nov 03, 2018 6:00 [id number] Nov 02, 2018 10:00 [id number] Nov 02, 2018 2:00 [id number] The Intake and Output Totals for the last 24 hours are: IntakeOutputNet [id number] Physical Exam: Constitutional: Well developed, awake/alert/oriented x3, no distress, alert and cooperative Eyes: EOMI, clear sclera ENMT: mucous membranes moist, no apparent injury, no lesions seen Respiratory/Thorax: Patent airways, normal breath sounds with good chest expansion, thorax symmetric Cardiovascular: Regular, rate and rhythm, no murmurs, Gastrointestinal: Nondistended, soft, non-tender, no rebound tenderness or guarding, no masses palpable, no organomegaly, +BS, no bruits Musculoskeletal: ROM intact, no joint swelling, normal strength Neurological: alert and oriented x3, intact senses, motor, response and reflexes, normal strength Psychological: Appropriate mood and behavior Skin: Warm and dry, no lesions, no rashes Medication: Medications: CENTRAL NERVOUS SYSTEM AGENTS: 1. Acetaminophen: 650 mg Oral Every 6 Hours 2. oxyCODONE Immediate Release: 5 mg Oral Every 4 Hours PRN 3. oxyCODONE Immediate Release: 10 mg Oral Every 4 Hours PRN 4. Ondansetron Injectable: 4 mg IntraVenous Push Every 6 Hours PRN COAGULATION MODIFIERS: 1. Heparin SubCutaneous: 5000 unit(s) SubCutaneous Every 8 Hours MISCELLANEOUS AGENTS: 1. Ropivacaine 0.2%/ NaCL 0.9% 550 mL: 1100 mg Peripheral Nerve NUTRITIONAL PRODUCTS: 1. Dextrose 5% - NaCL 0.45% Infusion: 1000 mL IntraVenous Recent Lab Results: Results: I have reviewed these laboratory results: Basic Metabolic Panel 03-Nov-2018 05:54:00 ResultValue Glucose, Serum 105 H NA 142 K 3.6 CL 108 H Bicarbonate, Serum 24 Anion Gap, Serum 14 BUN 21 CREAT 0.84 GFR-Non >60 GFR- >60 Calcium, Serum 9.1 Assessment and Plan: Assessment: 68 yo with PMH of diverticulitis who presents today for sigmoid colecetomy with Dr. Calero. Acute Pain consulted for block for postoperative pain control. Plan - ql catheters preopertively - we will follow while catheters are in - pain meds per primary - pain 08/23 today Acute pain [id number] Signature/Cosignature/Att estation: Note Completion: Attending AttestationI saw and evaluated the patient. I personally obtained the laguna and critical portions of the history and physical exam or was physically present for laguna and critical portions performed by the resident/fellow. I reviewed the resident/fellows documentation and discussed the patient with the resident/fellow. I agree with the resident/fellows medical decision making as documented in the note. I personally evaluated the patient [id number] Electronic Signatures: Jacob Walker) (Signed 04-Nov-2018 08:24) Authored: Signature/Cosignature/Att estation Co-Signer: Service, Subjective Data, Objective Data, Assessment and Plan, Signature/Cosignature/Att estation Nicholas Hebert (Resident)) (Signed 03-Nov-2018 11:52) Authored: Service, Subjective Data, Objective Data, Assessment and Plan, Signature/Cosignature/Att estation Last Updated: 04-Nov-2018 08:24 by Jacob Walker) Normal [facility] Daily Progress Note-Colorect al Surgeryon 11-03-2018 Daily Progress Note-Colorectal Surgery Service: Colorectal Surgery Subjective Data: YAA BENITEZ is a 68 year old Female who is Hospital Day # 2 and POD #1 for Open sigmoid Colectomy. No acute events overnight. Denies any N/V. Pain is well controlled. Objective Data: Objective Information: ---- Intake and Output ----- Mn/Dy/Year TimeIntakeOutputNet Nov 03, 2018 2:00 [id number] Nov 03, 2018 6:00 [id number] Nov 02, 2018 10:00 [id number] The Intake and Output Totals for the last 24 hours are: IntakeOutputNet [id number] T PRBPSpO2 [id number]/7395% Date/Time11/03 15: 15: 15: 15: 15:16 Range(36.3C - 37.3C ) (78 - 94 ) (16 - 20 ) (100 - 135 )/ (60 - 81 ) (94% - 97% ) Highest temp of 37.3 C was recorded at 11/02 23:39 Physical Exam: Constitutional: NAD, laying in bed Eyes: EOMI, non icteric Respiratory/Thorax: non labored breathing, symmetric chest rise Cardiovascular: RR Gastrointestinal: soft, NT, ND Genitourinary: gonzales in place with clear yellow urine Extremities: no LE edema Psychological: Appropriate mood and behavior Skin: warm dry no rashes Medication: Medications: Continuous Medications ------- 1. Dextrose 5% - NaCL 0.45% Infusion: 1000 mL IntraVenous 2. Ropivacaine 0.2%/ NaCL 0.9% 550 mL: 1100 mg Peripheral Nerve Scheduled Medications ------- 1. Acetaminophen: 650 mg Oral Every 6 Hours 2. Heparin SubCutaneous: 5000 unit(s) SubCutaneous Every 8 Hours 3. Sertraline: 100 mg Oral Daily PRN Medications ------- 1. Ondansetron Injectable: 4 mg IntraVenous Push Every 6 Hours 2. oxyCODONE Immediate Release: 5 mg Oral Every 4 Hours 3. oxyCODONE Immediate Release: 10 mg Oral Every 4 Hours Recent Lab Results: Results: I have reviewed these laboratory results: Basic Metabolic Panel 03-Nov-2018 05:54:00 ResultValue Glucose, Serum 105 H NA 142 K 3.6 CL 108 H Bicarbonate, Serum 24 Anion Gap, Serum 14 BUN 21 CREAT 0.84 GFR-Non >60 GFR- >60 Calcium, Serum 9.1 Complete Blood Count 03-Nov-2018 05:54:00 ResultValue White Blood Cell Count 8.1 Nucleated Erythrocyte Count 0.0 Red Blood Cell Count 3.96 L HGB 11.8 L HCT 37.4 MCV 94 MCHC 31.6 L PLT 244 RDW-CV 16.1 H Assessment and Plan: Assessment: 68 yo F with PMHx diverticulitis s/p open sigmoid colectomy on 11/02. Plan: Neuro: tylenol, oxycodone PRN for pain dilaudid for BT, cont home sertraline CV: remains stable; cont home cardizem Pulm: stable on RA; cont Q1H incentive spirometry Heme: Trend H/H POD 3 Renal: DC gonzales TOV FEN/GI: cleasrs MIVF @ 75 cc/hr, HLIV with good PO Endo: no issues ID: no abx Wound: change dressing tmrw Prophy: SCD, HepSQ, PPI Dispo: MEGAN Mojica MD PGY-4 Colorectal Surgery [place] pager #[phone] Signature/Cosignature/Att estation: Note Completion: Attending AttestationI saw and evaluated the patient. I personally obtained the laguna and critical portions of the history and physical exam or was physically present for laguna and critical portions performed by the resident/fellow. I reviewed the resident/fellows documentation and discussed the patient with the resident/fellow. I agree with the resident/fellows medical decision making as documented in the note. I personally evaluated the patient [id number] Electronic Signatures: Marcelino Calero) (Signed 06-Nov-2018 08:07) Authored: Signature/Cosignature/Att estation Co-Signer: Service, Subjective Data, Objective Data, Assessment and Plan, Signature/Cosignature/Att estation Gabbi Mojica (Resident)) (Signed 03-Nov-2018 19:58) Authored: Service, Subjective Data, Objective Data, Assessment and Plan, Signature/Cosignature/Att estation Last Updated: 06-Nov-2018 08:07 by Marcelino Calero) Normal [facility] Discharge Planning Noteon Discharge Planning Note Patient Learning: Factors that Impact Ability to Learnvisual problems(1) Other Factors: Functional Screen: In the recent/past 2-4 weeks, patient or family have noticedno issues that require a rehabilitation consult at this time(2) Discharge Planning: Discharge Plannin1638, Washery Boss Note: Spoke with patient in regards to discharge planning. Patient states that prior to admission she was independent with ADLs. Patient lives at home with her . Patient's demographics were verified. Patient has [employer] [place] Medicare. Patient's PCP is Dr. Perry. Patient does not have any assistive devices. Patient is not active with Home Care. No needs identified at discharge. Asiya Chaparro, FRANNY Washery Boss 11/06/18 @ 1415 Transitional Care Coordination Progress Note: Patient discussed during interdisciplinary rounds. Team members present: ARCHITECT MANAGER, Urban Sociologist, SW, TCC and PCN Plan per Medical/Surgical team: POD #4 open sigmoid colectomy. Advancing diet. Encourage ambulation Discharge disposition: PT eval needed, but anticipating home Potential Barriers: none ADOD: 11/07 Asuncion Ramirez RNCC [id number] 11/07/18 @ 1123 Pt transported off floor via wheel chair by RN. Discharge instructions reviewed with pt and . No further questions at this time. Pt sent home with 4x4, paper tape and script for oxycodone. No c/o n/v, SOB, or pain at this time. IV's removed and intact. Summer Pope RN. Electronic Signatures: Summer Pope (DENIS) (Signed 07-Nov-2018 11:32) Authored: Discharge Planning Note Asuncion Ramirez (CLIN COOR) (Signed 06-Nov-2018 14:34) Authored: Discharge Planning Note Asiya Chaparro (QC CHEMIST) (Signed 03-Nov-2018 16:46) Authored: Discharge Planning Note Last Updated: 07-Nov-2018 11:32 by Summer Pope (DENIS) References: 1. Data Referenced From 5. Education 11/02/2018 4:41 PM 2. Data Referenced From Admission Risk Screen - Adult 11/02/2018 4:41 PM Normal [facility] ABO/RH GROUP TESTon 11-03-19 ABO TYPE O Normal [facility] Comment on above: Performed By: #### V ERAB #### [facility] [address] [place] [address] RH TYPE Positive Normal [facility] Comment on above: Performed By: #### V ERAB #### [facility] [address] [place] [address] Admission Risk Screen - Adul ton 11-02-2018 Admission Risk Screen - Adult Allergies: Allergies: Neosporin: Unknown Flagyl: Unknown ciprofloxacin: Unknown Patient Verification: New W ID Band Applied in my Departmentno Type of ID Patient is WearingW wristband, but not applied here Patient Transferred from Other Facility ([facility], [facility],etc)no Patient Identity Verified Bypatient ID Band FULL Name, include Middle, spelling matches patient's ID used for verificationyes ID Band Matches Patient ID used for Verficationyes ID Band MRN Matches EMR MRNyes Advance Directive: Advance Directive Medicalyes (1) Advance Directive typeLiving Will, Durable Power of Size Changer for Healthcare, Declaration for Mental Health Treatment(1) Living Will AvailabilityLiving Will not available now Living Will [id number] Durable Power of Size Changer AvailabilityDPOA not available now Durable Power of Size Changer [id number] Durable Power of Size Changer contact (name and number)sushantdavid benitez Declaration for Mental Health Treatment Availabilitynot available now Declaration of Mental Health Treatment [id number] Falls Screen: Type of Assessmentadmission Moderate Risk Factorsaltered elimination High Risk Factorsgait instability Risk for Injury Associated with Fallcoagulation blood thinners (Coumadin, heparin gtt), coagulopathy, risk of surgical complications post surgery (recent abdominal, thoracic surgery, lower limb amputation) Fall Risk Conclusionhigh falls risk with risk for associated injury [facility] Safety InterventionsWDL *orient to call system *instruct to call for assistance before getting out of bed *non-slip footwear when patient is out of bed *call earl in reach *personal items and telephone in reach *physically safe environment (no spills or clutter) *bed in lowest position with wheels locked *appropriate side rails in place *room/bathroom lighting operational, light cord in reach *appropriate signage on door Fall and Injury Risk Interventionssupervised toileting (mandatory for all high risk patients), collaborate with team for PT/OT consult/ambulatory aids, educate pt/family, monitor med side effects, consult Pharmacy, educate patient/family for risk for injury (fractures and bleeding) Family Violence Screen: Are you or have you been threatened or abused physically, emotionally, or sexually by anyoneno Do you feel UNSAFE going back to the place where you are livingno Clinical assessment: Are there any apparent signs of injuries/behaviors that could be related to abuse/neglectno Social Service Consult for abuse/neglect needed this visitno Functional screen: Functional Screen: In the recent/past 2-4 weeks, patient or family have noticedno issues that require a rehabilitation consult at this time Learning Assessment (Patient): Patient is Able to be Assessed for Learningyes Factors Influencing Readiness to Learnfatigue; pain Factors that Impact Ability to Learnvisual problems Devices/Methods Used to Communicateglasses Learning Preferencesverbal instruction Cultural Considerationsnone Developmental Considerationsnone Quaker Considerationsnone Learning Assessment (Other Learner): Other learner availableno Suicide/Depression Screen: During the past month, have you often been bothered by feeling down, depressed or hopelessno (1) During the past month, have you often had little interest or pleasure in doing thingsno (1) Have you had any thoughts of harming yourselfno (1) Have you had any thoughts of harming anyone elseno (1) Adult Nutrition Screen: Have you recently lost weight without tryingno Have you been eating poorly because of a decreased appetiteno Malnutrition Screening Tool Score0 Malnutrition Screening Tool RiskMST = 0 or 1 Not at risk. Eating well with little or no weight loss Nutrition Consult needed this visitno Can Patient Participate in Room Serviceyes Patient requires Paper Dishes/Plastic Utensilsno Pain Screen: Pain Scalenumerical 0-10 (1) Pain Scale Educationteaching provided (1) Current Pain Level0 = None Acceptable Pain Level3 = Mild Expression of Pain (nonverbal)verbalization Chronic Painyes (1) Spiritual Screen: Are there any cultural, spiritual, adventist practices/values/needs that are important for us to knowno CAGE: Is this an injured [place] at a [place] [place]/ [place] no Vaccinations: Vaccination - Influenza Vaccination Screen: Is it flu season (between and September 12)No Vaccination - Pneumonia Vaccination Screen: Patient has received a previous pneumonia vaccine:no/unknown... Pneumonia vaccine NOT indicated due to:patient/caregiver refusal at this time Chance: Skin - Chance Scale: Chance: Sensory Perception (response to environment)(3) slightly limited Chance: Moisture (degree skin exposed to moisture)(3) occasionally moist Chance: Activity (ability to walk)(3) walks occasionally Chance: Mobility (amount/control of body movement)(3) slightly limited Chance: Nutrition (quality of food intake)(3) adequate Chance: Friction and Shear(3) no apparent problem Chance: Score18 Skin Intervention Orders (Nursing orders will be generated)elevate heels, up in chair < 1 hr intervals, turn side to side every 2 hrs, assess for therapeutic equipment, assess pressure points, hygiene care, toilet/ADL every 2 hrs awake, toilet/ADL every 4 hrs asleep, educate prevent/treat pressure ulcer Significant Indicatiors: Significant Indicators: Complete Pressure Injury: Pressure Injury Present on Admissionno Electronic Signatures: Peri Yancey (DENIS) (Signed 02-Nov-2018 16:44) Authored: Admission Risk Screens, Vaccinations, Chance, Pressure Injury Last Updated: 02-Nov-2018 16:44 by Peri Yancey (DENIS) References: 1. Data Referenced From Patient Profile - Preop v2 11/02/2018 6:28 AM Normal [facility] Clinical Event Vyha-[id number]-hj Checkon 11-02-2018 Clinical Event Otja-Lbkb-ws Check Event: Topic: Post-op Check Details: Surgery Post Op Check Note S: status-post open sigmoid colectomy for diverticulitis. No acute events since surgery. NPO w/o nausea or vomiting. Denies chest pain or shortness of breath. Pain is adequately controlled. O: T 37 / HR 84 / BP 134/77 / RR 16 / Sat 99% on 2L NC Gen: NAD Neuro: Alert, oriented, conversant Card: RRR Pulm: Non-labored breathing on 2L NC Abd: Soft, appropriately tender without rebound or guarding, nondistended, midline incision w/island dressing in place and minimal strike through, DIPESH in LLQ reinforced with dressings and tape and minimal ss output. Ext: Warm, well perfused, MAEE, SCDs in place A/P POD#0 s/p open sigmoid colectomy for diverticulitis. Pt tolerated procedure well. - continue to optimize pain control w/On-Q & PO tylenol/oxy - remain NPO with plan to advance to clears as tolerated tomorrow - will provide IS at bedside - SQH/SCD - monitor drain output - will be seen by primary team in AM ---- Jairo Henry MD ANEUDY Surgery Night Coverage Colorectal [id number] Surg Onc [id number] Vascular [id number] Electronic Signatures: Jairo Henry ( (Resident)) (Signed 02-Nov-2018 20:21) Authored: Event Last Updated: 02-Nov-2018 20:21 by Jairo Henry ( (Resident)) Normal [facility] Consult-Anesthesia - Painon 11-02-2018 Consult-Anesthesia - Pain Service: Service: Anesthesia - Pain Consult: Consult requested by (Attending Name): Dr. Calero History of Present Illness: Admission Reason: COLECTOMY HPI: 68 yo with PMH of diverticulitis who presents today for sigmoid colecetomy with Dr. Calero. Acute Pain consulted for block for postoperative pain control. Anticipated Postop Pain Issues - Palliative: typically relieved with IV analgesics and regional local anesthetics Provocative: typically with movement Quality: typically burning and aching Radiation: typically none Severity: typically severe 8-10 Timing: typically constant PMH: diverticulitis PSH:carpal tunnel release FHx: none SHx:denies Allergies: Allergies: Neosporin: Unknown Flagyl: Unknown ciprofloxacin: Unknown Objective: Physical Exam: Constitutional: Well developed, awake/alert/oriented x3, no distress, alert and cooperative Eyes: EOMI, clear sclera ENMT: mucous membranes moist, no apparent injury, no lesions seen Respiratory/Thorax: Patent airways, normal breath sounds with good chest expansion, thorax symmetric Cardiovascular: Regular, rate and rhythm, no murmurs, Gastrointestinal: Nondistended, soft, non-tender, no rebound tenderness or guarding, no masses palpable, no organomegaly, +BS, no bruits Musculoskeletal: ROM intact, no joint swelling, normal strength Neurological: alert and oriented x3, intact senses, motor, response and reflexes, normal strength Psychological: Appropriate mood and behavior Skin: Warm and dry, no lesions, no rashes Medications: Medications: CENTRAL NERVOUS SYSTEM AGENTS: 1. HYDROmorphone Injectable: 0.2 mg IntraVenous Push Every 5 Minutes PRN 2. HYDROmorphone Injectable: 0.4 mg IntraVenous Push Every 5 Minutes PRN 3. Promethazine IV Piggy Back: 6.25 mg IntraVenous Piggyback Every 30 Minutes PRN MISCELLANEOUS AGENTS: 1. Ropivacaine 0.2%/ NaCL 0.9% 550 mL: 1100 mg Peripheral Nerve NUTRITIONAL PRODUCTS: 1. Lactated Ringers Infusion: 1000 mL IntraVenous Assessment: 68 yo with PMH of diverticulitis who presents today for sigmoid colecetomy with Dr. Calero. Acute Pain consulted for block for postoperative pain control. Plan - ql catheters preopertively - we will follow while catheters are in - pain meds per primary Acute pain [id number] Signature/Cosignature/Att estation: Note Completion: Attending AttestationI saw and evaluated the patient. I personally obtained the laguna and critical portions of the history and physical exam or was physically present for laguna and critical portions performed by the resident/fellow. I reviewed the resident/fellows documentation and discussed the patient with the resident/fellow. I agree with the resident/fellows medical decision making as documented in the note. I personally evaluated the patient [id number] Electronic Signatures: Jacob Walker) (Signed 04-Nov-2018 08:23) Authored: Service, Signature/Cosignature/Att estation Co-Signer: Service, History of Present Illness, Allergies, Objective, Assessment/Recommendation s, Signature/Cosignature/Att estation Nicholas Hebert (Resident)) (Signed 02-Nov-2018 15:41) Authored: Service, History of Present Illness, Allergies, Objective, Assessment/Recommendation s, Signature/Cosignature/Att estation Last Updated: 04-Nov-2018 08:23 by Jacob Walker) Normal [facility] Patient Profile - Adult v2on 11-02-2018 Patient Profile - Adult v2 Profile: Initial Info: How to be AddressedPam(1) Spoken Language PreferredEnglish (1) Are you currently using the Personal Electronic Health Record or CellScopeno (1) Stated Reason for Admissionsurgery Arrived FromOR Patient Belongingsnone Medications Brought to Hospitalno General Health: Weight in kg60.3 kilogram(s) Weight in qto691 pound(s) Height in feet5 feet Height in inches5 inch(es) Height in cm165.1 centimeter(s) BMI (kg/m2)22.121 square meter Weight Methodactual (measured) Scale Typebed Height Methodstated Blood Avoidance/Restrictionsnon e(1) Previous Transfusion Reactionno(1) RSP Based Care: How would you like to participate in your carestay informed What is the number one concern for you during this hospitalizationpain control What is the most important thing we can do to support you during this hospitalizationbe informed Is there anything we need to know to best care for youna Substance: Current or Former Substance Use never: Cigarette/Tobacco(1), Alcohol(1), Street Drugs(1) Health Mgmt: Symptoms/Conditions Managed at Homeendocrine Endocrine Managementmanaged Relationship/Environ: Primary Source of Support/Comfortspouse Lives Withspouse Living Arrangementshouse Resource/Environmental Concernsnone [facility] Anticipated at Transitionnone Significant IndicatorsComplete Information Review: Allergies, Home Meds and Significant Events have been Reviewed and Verified with Patient/Familyyes ALLERGY, INTOLERANCE, ADVERSE EVENT: Allergies: Neosporin: Drug, Unknown, Active Flagyl: Drug, Unknown, Active ciprofloxacin: Drug, Unknown, Active Electronic Signatures: Peri Yancey (DENIS) (Signed 02-Nov-2018 16:41) Authored: Profile, Additional Information Last Updated: 02-Nov-2018 16:41 by Peri Yancey (DENIS) References: 1. Data Referenced From Patient Profile - Preop v2 11/02/2018 6:28 AM Normal [facility] Patient Profile - Preop v2on 11-02-2018 Patient Profile - Preop v2 Profile: Initial Info: How to be AddressedPam Spoken Language PreferredEnglish Source of Informationpatient Are you currently using the Personal Electronic Health Record or CellScopeno Are you interested in learning more about [employer] for the management of your healthnot at this time Stated Reason for Admissionsigmoid colectomy Primary Contact Name and NumberJerry Limitations on Visitors/Phone Callsnone Patient [id number] Medications Brought to Hospitalno General Health: Weight in kg59.8 kilogram(s) Weight in hzg655 pound(s) Weight Methodstated Height in cm165.1 centimeter(s) Height in feet5 feet Height in inches5 inch(es) Height Methodstated BMI (kg/m2)21.938 square meter Patient or Family Member Reaction to Anesthesiano previous reaction Blood Avoidance/Restrictionsnon e Previous Transfusion Reactionno Health Mgmt: Symptoms/Conditions Managed at Homegastrointestinal; HEENT (head, eyes, ears, nose, throat); immunological; cardiovascular Cardiovascular Symptoms/Conditionshypert ension Barriers to Managing Healthnone Relationship/Environ: Resource/Environmental Concernsnone Lives Withspouse Living Arrangementshouse Substance: Current or Former Substance Use never: Cigarette/Tobacco, e-Cigarette/Vaping, Alcohol, Street Drugs Risk Screens: Advance Directive Medicalyes Advance Directive typeLiving Will, Durable Power of Size Changer for Healthcare, Declaration for Mental Health Treatment Living Will AvailabilityLiving Will not available now Durable Power of Size Changer AvailabilityDPOA not available now During the past month, have you often been bothered by feeling down, depressed or hopelessno During the past month, have you often had little interest or pleasure in doing thingsno Have you had any thoughts of harming yourselfno Have you had any thoughts of harming anyone elseno Are you or have you been threatened or abused physically,emotionally or sexually abused by anyoneno Do you feel UNSAFE going back to the place you are livingno Patient is Able to be Assessed for Learningyes Factors Influencing Readiness to Learnacuteness of illness; anxiety; interest in learning; motivation to learn Factors that Impact Ability to Learnnone Devices/Methods Used to Communicatenone Learning Preferencesaudio; verbal instruction Cultural Considerationsnone Developmental Considerationsnone Quaker Considerationsnone Other learner availableno Falls RiskPatient location auto qualifies him/her for HIGH RISK. Are there any cultural, spiritual, adventist practices/values/needs that are important for us to knowno Do you want a visit/item from [facility] Would you like your Furnace Operator And Tender/Electrotype Finisher notifiedno Pain Scalenumerical 0-10 Pain Scale Educationteaching provided Current Pain Level0 = None Acceptable Pain Level3 = Mild Chronic Painyes Information Review: Allergies, Home Meds and Significant Events have been Reviewed and Verified with Patient/Familyyes Allergy, Intolerance, Adverse Event: Allergies: Neosporin: Drug, Unknown, Active Flagyl: Drug, Unknown, Active ciprofloxacin: Drug, Unknown, Active Electronic Signatures: Betty Muller) (Signed 02-Nov-2018 06:35) Authored: Profile, Additional Information Last Updated: 02-Nov-2018 06:35 by Betty Muller (RN) Normal [facility] Preop Checkliston 11-02-2018 Preop Checklist Preop Checklist: Preop Checklist: Arrival [id number] Arrival Time06:25 Procedure Typesigmoid colectomy NPO [id number] 00:00 ID Band Onyes Allergy Bandyes Consent Signedyes H&P Completeyes Anesthesia Assessment Completedpending EKG Performedsee results tab Chest X-Ray Performedsee results tab HCG Urine TestN/A Hair Washednot applicable Soap and water bath with hair shampoo the night before surgerynot applicable SCD's Appliedsent to OR Valuables Securedplaced in locker Glasses / Contactsplaced in locker Bowel Prepyes TypeMiralax Bowel Prep Completed as Instructedyes Stools Clearno Cardiovascular Assessment: Apicalregular Radial Pulsespalpable Pedal Pulsespalpable Extremitieswarm, well perfused Respiratory Assessment: Respirationsunlabored regular Air Exchangegood, equal Breath Soundsclear Neurological Assessment: Level of Consciousnessalert, oriented Mobilitymoves all extremities Able to Express Selfyes Age Appropriateyes Emotional Statuscalm Language / Communication: Language / CommunicationEnglish Electronic Signatures: Betty Muller (RN) (Signed 02-Nov-2018 06:27) Authored: Preop Checklist Last Updated: 02-Nov-2018 06:27 by Betty Muller (RN) Normal [facility] Surgical Pathology Depar tmenton 11-02-2018 [facility] Surgical Pathology Department Name YAA BENITEZ Pathologist: ELISE PARMAR M.D. Date of Procedure: 11/02/2018 Date Received: 11/02/2018 Date Reported 11/06/2018 Submitting Physician: MARCELINO CALERO MD Location: [facility] External # FINAL DIAGNOSIS A. SIGMOID COLON, RESECTION: -- DIVERTICULOSIS The gross and/or microscopic findings were reviewed in conjunction with pathology resident, Tre Valencia DO. Electronically Signed Out By ELISE PARMAR M.D./AGATA By the signature on this report, the individual or group listed as making the Final Interpretation/Diagnosis certifies that they have reviewed this case. Clinical History: Diverticulitis Specimens Submitted As: A: SIGMOID COLON Gross Description: A: Received in formalin, labeled with the patient's name and hospital number and sigmoid colon, is an un-oriented segment of colon with attached mesentery and fibrofatty tissue measuring 34.5 cm in length and 4.5 cm in diameter. The serosal surface is thickened, pink-lee hyperemic, demonstrates fibrinous exudates adherence of mesentery. An area of possible adhesion is identified in the serosal surface, inked black. The bowel wall demonstrates irregular focal thickening, up to 1.1 cm. A stricture is not present. Multiple diverticula are present, ranging from 0.3 cm to 0.5 cm, does not appear perforated. The process does not extend to the lines of resection. Polyps are not present. The attached mesentery is unremarkable. Tissue is submitted to HTPF. Structural Rigger sections are submitted in 5 cassettes. SPC Summary of Cassettes: Specimen Label Site A 1-4 diverticula 5 possible lymph node spc/11/02/2018 Normal [facility] Comment on above: Performed By: #### C OAGS #### [facility] [address] [place] [address] TYPE + SCREENon 10-24-2018 ABO TYPE O Normal [facility] Comment on above: Performed By: #### T +S #### [facility] [address] [place] [address] RH TYPE Positive Normal [facility] Comment on above: Performed By: #### T +S #### [place] [address] [place] [address] BASIC METABOLIC PANELon 10-14 Anion gap [Moles/Vol] 16 mmol/L Normal 10 - 20 [facility] Comment on above: Performed By: #### B MP #### [facility] [address] [place] [address] Calcium [Mass/Vol] 10.3 mg/dL Normal 8.6 - 10.6 [facility] Comment on above: Performed By: #### B MP #### [facility] [address] [place] [address] Chloride [Moles/Vol] 103 mmol/L Normal 98 - 107 [facility] Comment on above: Performed By: #### B MP #### [facility] [address] [place] [address] Creatinine [Mass/Vol] 1.03 mg/dL Normal 0.50 - 1.05 [facility] Comment on above: Performed By: #### B MP #### [facility] [address] [place] [address] GFR- AM. 64 mL/min/1.73m2 Normal >60 [facility] Comment on above: Result Comment: CALC ULATIONS OF ESTIMATED GFR ARE PERFORMED USING THE MDRD STUDY EQUATION FOR THE IDMS-TRACEABLE CREATININE METHODS. CLIN CHEM 2007;53:766-72 Performed By: #### B MP #### [facility] [address] [place] [address] GFR-NON AM. 53 mL/min/1.73m2 Abnormal >60 [facility] Comment on above: Performed By: #### B MP #### [facility] [address] [place] [address] Glucose [Mass/Vol] 81 mg/dL Normal 74 - 99 [facility] Comment on above: Performed By: #### B MP #### [facility] [address] [place] [address] HCO3 (Bld) [Moles/Vol] 24 mmol/L Normal 21 - 32 [facility] Comment on above: Performed By: #### B MP #### [facility] [address] [place] [address] Potassium [Moles/Vol] 4.6 mmol/L Normal 3.5 - 5.3 [facility] Comment on above: Performed By: #### B MP #### [facility] [address] [place] [address] Sodium [Moles/Vol] 138 mmol/L Normal 136 - 145 [facility] Comment on above: Performed By: #### B MP #### [facility] [address] [place] [address] Urea nitrogen [Mass/Vol] 21 mg/dL Normal 6 - 23 [facility] Comment on above: Performed By: #### B MP #### [facility] [address] [place] [address] CBCon 10-23-2018 Erythrocyte distribution width (RBC) [Ratio] 15.4 % High 11.5 - 14.5 [facility] Comment on above: Performed By: #### C BC #### [facility] [address] [place] [address] Hematocrit (Bld) [Volume fraction] 47.1 % High 36.0 - 46.0 [facility] Comment on above: Performed By: #### C BC #### [facility] [address] [place] [address] Hemoglobin (Bld) [Mass/Vol] 14.4 g/dL Normal 12.0 - 16.0 [facility] Comment on above: Performed By: #### C BC #### [facility] [address] [place] [address] MCHC (RBC) [Mass/Vol] 30.6 g/dL Low 32.0 - 36.0 [facility] Comment on above: Performed By: #### C BC #### [facility] [address] [place] [address] MCV (RBC) [Entitic vol] 95 fL Normal 80 - 100 [facility] Comment on above: Performed By: #### C BC #### [facility] [address] [place] [address] Nucleated RBC/100 WBC (Bld) [Ratio] 0.0 /100 WBC Normal 0.0-0.0 [facility] Comment on above: Performed By: #### C BC #### [facility] [address] [place] [address] Platelets (Bld) [#/Vol] 351 10*3/uL Normal 150 - 450 [facility] Comment on above: Performed By: #### C BC #### [facility] [address] [place] [address] RBC (Bld) [#/Vol] 4.95 x10E12/L Normal 4.00 - 5.20 [facility] Comment on above: Performed By: #### C BC #### [facility] [address] [place] [address] WBC (Bld) [#/Vol] 5.8 10*3/uL Normal 4.4 - 11.3 [facility] Comment on above: Performed By: #### C BC #### [facility] [address] [place] [address] COAGULATION SCREENon 019 aPTT Coag (Bld) [Time] 33 s Normal 28 - 38 [facility] Comment on above: Result Comment: THE APTT IS NO LONGER USED FOR MONITORING UNFRACTIONATED HEPARIN THERAPY. FOR MONITORING HEPARIN THERAPY, USE THE HEPARIN ASSAY. Performed By: #### C OAGS #### [facility] [address] [place] [address] INR Coag (PPP) [Relative time] 1.0 {INR} Normal 0.9 - 1.1 [facility] Comment on above: Performed By: #### C OAGS #### [facility] [address] [place] [address] PT Coag (PPP) [Time] 11.5 s Normal 9.7 - 12.7 [facility] Comment on above: Performed By: #### C OAGS #### [facility] [address] [place] [address] Initial Visit (Colon and Rec peewee Surgery)on 10-18-2018 Initial Visit (Colon and Rectal Surgery) Chief Complaint NPV, Diverticulitis History of Present Illness Referral: Dr. Zane Goodman ([place]) Yaa Benitez is a 68 y/o F with history of diverticulitis who began experiencing nausea and abdominal pain with bloating/ distention in July, CT scan at that time showed acute diverticulitis. She has since been on two courses of oral antibiotics that were stopped during second course due development to lip swelling and hives (angioedema). She was hospitalized in August 2018 for this and was also found to have cdiff and was treated for this and then was found to have ESBL UTI and was treated for this as well. Since then she has done well and has completed her antibiotic treatment. Her last colonoscopy was in 2016 and was found to have diverticulosis at that time. She is here for surgical referral. 09/07/18- CT A/P- diffuse submucosal thickening of majority of colon, most notably in sigmoid colon. Active Problems Diverticulitis, colon (562.11) (K57.32) Surgical History History of Carpal tunnel surgery History of Cataract surgery History of Eye surgery History of Temporomandibular joint surgery History of Tubal ligation Social History Never a smoker No alcohol use Allergies ciprofloxacin Recorded By: Teodora Thurman; 10/10/2018 11:49:23 AM Ciprofloxacin HCl TABS Recorded By: Teodora Thurman; 10/10/2018 11:49:23 AM Flagyl CAPS Recorded By: Teodora Thurman; 10/10/2018 11:49:23 AM Neosporin OINT Recorded By: Sintia Parikh; 10/10/2018 10:47:01 AM Current Meds Aspirin 81 MG Oral Tablet Delayed Release; Therapy: (Recorded:10Oct2018) to Recorded Dispense: 0 Days ; #: Sufficient; Refill: 0; ROBERTO = N; Record; Last Updated By: Sintia Parikh; 10/10/2018 10:47:01 AM dilTIAZem HCl - 120 MG Oral Tablet; Therapy: (Recorded:10Oct2018) to Recorded Dispense: 0 Days ; #: Sufficient; Refill: 0; ROBERTO = N; Record; Last Updated By: Sintia Parikh; 10/10/2018 10:47:01 AM Fenofibrate 145 MG Oral Tablet; Therapy: (Recorded:10Oct2018) to Recorded Dispense: 0 Days ; #: Sufficient; Refill: 0; ROBERTO = N; Record; Last Updated By: Sintia Parikh; 10/10/2018 10:47:01 AM HYDROcodone-Acetaminophen 5-325 MG Oral Tablet; Therapy: (Recorded:10Oct2018) to Recorded Dispense: 0 Days ; #: Sufficient; Refill: 0; ROBERTO = N; Record; Last Updated By: Sintia Parikh; 10/10/2018 10:47:01 AM Metoprolol Tartrate 25 MG Oral Tablet; Therapy: (Recorded:10Oct2018) to Recorded Dispense: 0 Days ; #: Sufficient; Refill: 0; ROBERTO = N; Record; Last Updated By: Sintia Parikh; 10/10/2018 10:47:01 AM Quinapril HCl - 20 MG Oral Tablet; Therapy: (Recorded:10Oct2018) to Recorded Dispense: 0 Days ; #: Sufficient; Refill: 0; ROBERTO = N; Record; Last Updated By: Sintia Parikh; 10/10/2018 10:47:01 AM Sertraline HCl - 100 MG Oral Tablet; Therapy: (Recorded:10Oct2018) to Recorded Dispense: 0 Days ; #: Sufficient; Refill: 0; ROBERTO = N; Record; Last Updated By: Sintia Parikh; 10/10/2018 10:47:01 AM Vitals Vital Signs Recorded: 10Oct2018 10:44AM Heart Rate80 Rictizon06 Uhvwwtmed98 Height5 ft 5 in Zptrsf484 lb BMI Wkvgqncqnr22.47 BSA Calculated1.67 Physical Exam Constitutional: General appearance: In no acute distress, well appearing and well nourished. Eyes: Conjunctiva and lids: No erythema, swelling or discharge. Neck: Neck Examination: Appearance of the neck was normal. No neck masses observed. Pulmonary: Respiratory effort: Normal respiration. Cardiovascular: regular rate. Abdomen and Pelvis: Abdomen: Non-tender, no abdominal masses. Skin: Examination for Lesions, Ulcers and Bruising: normal. Neurologic: Cranial Nerve Exam: Non-focal. Grossly intact. Psychiatric: Orientation to person, place, and time: Normal. Diagnoses/Problems Diverticulitis, colon (562.11) (K57.32) Orders Tobacco Use Screening; Status:Complete; Done: 10Oct2018 Perform:Not Applicable;Ordered; For:SocHx: Never a smoker; Ordered By:Sintia Parikh; Patient Discussion/Summary 68 F with diverticulitis and hx of cdiff infection -plan for colonoscopy, last one in 2017 -preadmission testing -plan for sigmoid colectomy Fredo Askew MD colorectal fellow Seen and examined. Agree with above. Marcelino Calero MD Signatures Electronically signed by : Marcelino Calero MD; Oct 18 2018 4:49PM EST (Author) Normal [facility] .Auto Diffon 01-20-2018 Ammonia mass conc (P) 0.40 10 3/mcL Normal 0.15-1.00 Pending Sale To [facility] ([place]) Comment on above: Performed By: #### C BC, ADIFF, ANEU ####[address] [place], [place] [address]#### CMP, GFR ####[address] [address] Basophils Auto #/vol (Bld) 0.10 10 3/mcL Normal 0.00-0.19 Pending [facility] To [facility] ([place]) Comment on above: Performed By: #### C TUAN, ADIFF, ANEU ####[address] [place] [address]#### CMP, GFR ####[address] [address] Basophils/100 WBC Auto (Bld) 1.8 % Normal 0.0-2.5 Pending Sale To [facility] ([place]) Comment on above: Performed By: #### C BC, ADIFF, ANEU ####[address] [address]#### CMP, GFR ####[address] [address] Eosinophils Auto #/vol (Bld) 0.10 10 3/mcL Normal 0.00-0.40 Pending Sale To [facility] ([place]) Comment on above: Performed By: #### C TUAN ADIFF, ANEU ####[address] [place] [address]#### CMP, GFR ####[address] [address] Eosinophils/100 WBC Auto (Bld) 1.4 % Normal 0.0-7.0 Pending [facility] To [facility] ([place]) Comment on above: Performed By: #### C CHACORTA DICKERSON, ANEU ####[address] [address]#### CMP, GFR ####[address] [address] Lymphocytes Auto #/vol (Bld) 1.70 10 3/mcL Normal 0.77-3.85 Pending Sale To [facility] ([place]) Comment on above: Performed By: #### C TUAN, ADIFF, ANEU ####[address] [place] [address]#### CMP, GFR ####[address] [address] Lymphocytes/100 WBC Auto (Bld) 27.8 % Normal 10.0-50.0 Pending [facility] To [facility] ([place]) Comment on above: Performed By: #### C BC, ADIFF, ANEU ####[address] [place], [place] [address]#### CMP, GFR ####[facility] [place] [address] Monocytes/100 WBC Auto (Bld) 5.8 % Normal 1.7-13.0 Pending [facility] ([place]) Comment on above: Performed By: #### C BC, ADIFF, ANEU ####[address] [place], [place] [address]#### CMP, GFR ####[facility] [place] [address] Neutrophils/100 WBC Auto (Bld) 63.2 % Normal 37.0-80.0 Pending [facility] ([place]) Comment on above: Performed By: #### C BC, ADIFF, ANEU ####[place] [place] [id number]#### CMP, GFR ####[facility] [place] [address] .GFRon 01-20-2018 GFR Non- 39 ml/min/1.73sqm Normal Pending [facility] ([place]) Comment on above: Result Comment: GFR Population mean for , Non- Americans Ages 20-29 = 116 mL/min/1.73 sq.m. Ages 30-39 = 107 mL/min/1.73 sq.m. Ages 40-49 = 99 mL/min/1.73 sq.m. Ages 50-59 = 93 mL/min/1.73 sq.m. Ages 60-69 = 85 mL/min/1.73 sq.m. Ages 70+ = 75 mL/min/1.73 sq.m.Chronic Kidney Disease: Less than 60 mL/min/1.73 square metersEnd Stage Renal Disease: Less than 15 mL/min/1.73 square meters Performed By: #### C BC, ADIFF, ANEU ####[address] [place], [place] [address]#### CMP, GFR ####[place] [address] GFR 48 ml/min/1.73sqm Normal Pending Sale To [facility] ([place]) Comment on above: Result Comment: GFR Population mean for , Non- Americans Ages 20-29 = 116 mL/min/1.73 sq.m. Ages 30-39 = 107 mL/min/1.73 sq.m. Ages 40-49 = 99 mL/min/1.73 sq.m. Ages 50-59 = 93 mL/min/1.73 sq.m. Ages 60-69 = 85 mL/min/1.73 sq.m. Ages 70+ = 75 mL/min/1.73 sq.m.Chronic Kidney Disease: Less than 60 mL/min/1.73 square metersEnd Stage Renal Disease: Less than 15 mL/min/1.73 square meters Performed By: #### C CHACORTA DICKERSON, ANEU ####[place] [address]#### CMP, GFR ####[place] [address] .NEUABSon 01-20-2018 Neutrophil, Absolute 3.90 10 3/mcL Normal 2.85-6.16 [facility] ([place]) Comment on above: Performed By: #### CHACORTA GONZALES, ANEU ####[address] [place] [address]#### CMP, GFR ####[place] [address] CBCon 01-20-2018 Erythrocyte distribution width Auto Ratio (RBC) 14.2 % Normal 11.5-14.5 Pending [place] [facility] ([place] Comment on above: Performed By: #### C CHACORTA DICKERSON, ANEU ####[place] [place] [address]#### CMP, GFR ####[place] [address] Hematocrit Auto Volume Fraction (Bld) 44.5 % Normal 37.0-47.0 Pending Sale To [facility] ([place] Comment on above: Performed By: #### CHACORTA GONZALES, ANEU ####[place] [address]#### CMP, GFR ####[place] [address] Hemoglobin mass conc (Bld) 15.3 G/dL Normal 12.0-16.0 Pending Sale To [facility] ([place]) Comment on above: Performed By: #### C BC, ADIFF, ANEU ####[place] [address]#### CMP, GFR ####[place] [address] MCH Auto Entitic mass (RBC) 30.9 pg Normal 27.0-31.2 Pending Sale To [facility] ([place]) Comment on above: Performed By: #### C BC, ADIFF, ANEU ####[place] [address]#### CMP, GFR ####[place] [address] MCHC Auto mass conc (RBC) 34.4 G/dL Normal 33.0-37.0 Pending Sale To [facility] ([place] Comment on above: Performed By: #### C BC, ADIFF, ANEU ####[place] [address]#### CMP, GFR ####[place] [address] MCV Auto Entitic volume (RBC) 89.7 fL Normal 80.0-94.0 Pending Sale To [facility] ([place]) Comment on above: Performed By: #### C BC, ADIFF, ANEU ####[place] [address]#### CMP, GFR ####[place] [address] Platelet mean volume Auto Entitic volume (Bld) 9.1 fL Normal 7.4-10.4 Pending Sale To [facility] ([place] Comment on above: Performed By: #### C BC, ADIFF, ANEU ####[place] [address]#### CMP, GFR ####[address] [address] Platelets Auto #/vol (Bld) 320 10 3/mcL Normal 130-400 Pending Sale To [facility] [place] Comment on above: Performed By: #### C BCDUCIFF, ANEU ####[address] [place] [id number]#### CMP, GFR ####[place] [address] RBC Auto #/vol (Bld) 4.97 10 6/mcL Normal 4.20-5.40 [facility] ([place]) Comment on above: Performed By: #### C CHACORTA DICKERSON, ANEU ####[place] [address]#### CMP, GFR ####[place] [address] WBC Auto #/vol (Bld) 6.20 10 3/mcL Normal 4.60-10.80 [facility] ([place] Comment on above: Performed By: #### C CHACORTA DICKERSON, ANEU ####Brianadarrius [address] [address]#### CMP, GFR ####[place] [address] CMPon 01-20-2018 Albumin mass conc 4.0 G/dL Normal 3.4-4.8 Pending Sale To [facility] [place] Comment on above: Performed By: #### C CHACORTA DICKERSON, ANEU ####Brianadarrius [address] [address]#### CMP, GFR ####[place] [address] Albumin/Globulin mass ratio 1.2 {ratio} Normal 1.1-2.5 Pending Sale To [facility] [place] Comment on above: Performed By: #### C BC, ADIFF, ANEU ####Bri[address] [place] [id number]#### CMP, GFR ####[place] [address] ALP enzyme act/vol 44 U/L Normal 40-135 [facility] ([place] Comment on above: Performed By: #### C BC, ADIFF, ANEU ####[address] [address]#### CMP, GFR ####[address] [address] ALT enzyme act/vol 21 U/L Normal 10-35 [facility] ([place] Comment on above: Performed By: #### C BC, ADIFF, ANEU ####[place] [id number]#### CMP, GFR ####[address] [address] AST enzyme act/vol 22 U/L Normal 10-40 [facility] ([place] Comment on above: Performed By: #### C BC, ADIFF, ANEU ####[place] [address]#### CMP, GFR ####[address] [address] Bili Total 0.4 mg/dL Normal 0.2-1.0 Pending Sale To [facility] [place] Comment on above: Performed By: #### C BC, ADIFF, ANEU ####[place] [address]#### CMP, GFR ####[address] [address] Calcium mass conc 10.0 mg/dL Normal 8.4-10.2 Pending Sale To [facility] [place] Comment on above: Performed By: #### C BC, ADIFF, ANEU ####[place] [address]#### CMP, GFR ####[place] [address] Chloride molar conc 102 mmol/L Normal 98-107 [facility] ([place] Comment on above: Performed By: #### C BC, ADIFF, ANEU ####[address] [place] [address]#### CMP, GFR ####[place] [address] CO2 molar conc 26 mmol/L Normal 23-31 Pending Sale To [facility] [place] Comment on above: Performed By: #### C BC, ADIFF, ANEU ####[address] [place] [address]#### CMP, GFR ####[place] [address] Creatinine mass conc 1.34 mg/dL High 0.55-1.02 [facility] ([place] Comment on above: Performed By: #### C BC, ADIFF, ANEU ####[address] [place] [address]#### CMP, GFR ####[place] [address] Electrolyte Balance 12.0 mEq/L Normal [facility] ([place] Comment on above: Performed By: #### C BC, ADIFF, ANEU ####[address] [place] [address]#### CMP, GFR ####[place] [address] Globulin Calculated mass conc (S) 3.3 G/dL Normal Pending Sale To [facility] [place] Comment on above: Performed By: #### C BC, ADIFF, ANEU ####[address] [place] [address]#### CMP, GFR ####[place] [address] Glucose mass conc 77 mg/dL Low 80-115 Pending Sale To [facility] [place] Comment on above: Performed By: #### C BC, ADIFF, ANEU ####[address] [place] [address]#### CMP, GFR ####[place] [id number] [place] [address] Potassium molar conc 4.2 mmol/L Normal 3.5-5.1 [facility] ([place] Comment on above: Performed By: #### C BC, ADIFF, ANEU ####[facility] [place], [place] [address]#### CMP, GFR ####[facility] [place] [address] Protein mass conc 7.3 G/dL Normal 6.4-8.2 Pending Sale To [facility] [place] Comment on above: Performed By: #### C BC, ADIFF, ANEU ####B[address] [place], [place] [address]#### CMP, GFR ####[place] [id number] [place] [address] Sodium molar conc 140 mmol/L Normal 136-145 Pending Sale To [facility] [place] Comment on above: Performed By: #### C BC, ADIFF, ANEU ####B[address] [place], [place] [address]#### CMP, GFR ####[address] [address] Urea nitrogen mass conc 26 mg/dL High 7-18 Pending Sale To [facility] [place] Comment on above: Performed By: #### C BC, ADIFF, ANEU ####[address] [place], [place] [address]#### CMP, GFR ####[place] [id number] [place] [address] Urea nitrogen/Creatinine mass ratio 19 ratio Normal 7-27 Pending Sale To [facility] [place] Comment on above: Performed By: #### C BC, ADIFF, ANEU ####[address] [place], [place] [address]#### CMP, GFR ####[address] [address] Lab Report: Lipid Profileon 06-13-2017 Cholesterol 193 mg/dL Invalid Interpretation Code 200 [facility] Work Phone: [phone] HDL Cholesterol 75 mg/dL Invalid Interpretation Code [facility] Work Phone: [phone] LDL Cholesterol 101 mg/dL Invalid Interpretation Code 0-130 [facility] Work Phone: [phone] Triglyceride 83 mg/dL Invalid Interpretation Code [facility] Work Phone: [phone] very low density lipoproteins 17 mg/dL Invalid Interpretation Code 5-40 [facility] Phone: [phone] Lab Report: Liver Profileon 06-13-2017 Alanine aminotransferase (ALT) 24 U/L Invalid Interpretation Code 13-56 [facility] Work Phone: [phone] Albumin 3.8 g/dL Invalid Interpretation Code 3.2-5.0 [facility] Phone: [phone] Alkaline phosphatase (ALP) 39 U/L Low 45-117 [facility] Work Phone: [phone] Aspartate aminotransferase (AST) 25 U/L Invalid Interpretation Code 15-37 [facility] Phone: [phone] Bilirubin (direct) 0.12 mg/dL Invalid Interpretation Code 0.00-0.30 [facility] Work Phone: [phone] Bilirubin (total) 0.30 mg/dL Invalid Interpretation Code 0.20-1.00 [facility] Phone: [phone] Globulin 3.7 g/dL Invalid Interpretation Code 2.2-4.2 [facility] Phone: [phone] Protein 7.5 g/dL Invalid Interpretation Code 6.4-8.2 [facility] Phone: [phone] Office Visiton 02-10-2017 Documentation of current medications (procedure) Done Invalid Interpretation Code [facility] Phone: [phone] Fall risk assessment No Invalid Interpretation Code [facility] Phone: [phone] Protein mass conc Done Invalid Interpretation Code [facility] Phone: [phone] Clinical Lists 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: 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 Work Phone: [phone] Calcium 9.4 mg/dL Invalid Interpretation Code 8.5-10.1 [facility] Work Phone: [phone] Chloride 104 mmol/L Invalid Interpretation Code 98-107 [facility] Work Phone: [phone] CO2 29.0 mmol/L Invalid Interpretation Code 21.0-32.0 [facility] Work Phone: [phone] CO2 ppres (BldV) 29.0 mmol/L Invalid Interpretation Code 21.0-32.0 [facility] Work Phone: [phone] Creatinine 1.08 mg/dL High 0.55-1.02 [facility] Work Phone: [phone] eGFR (non-black) 54 mL/min/{1.73_m2} Low >60 [facility] Work Phone: [phone] eGFR (non-black) 65 mL/min/{1.73_m2} Invalid Interpretation Code >60 [facility] Work Phone: [phone] EST GFR - AA 65 mL/min Invalid Interpretation Code >60 [facility] Work Phone: [phone] Glucose 78 mg/dL Invalid Interpretation Code 70-110 [facility] Work Phone: [phone] Glucose mass conc 78 mg/dL Invalid Interpretation Code 70-110 [facility] Work Phone: [phone] Potassium 4.2 mmol/L Invalid Interpretation Code 3.5-5.1 [facility] Work Phone: [phone] Sodium 142 mmol/L Invalid Interpretation Code 136-145 [facility] Work Phone: [phone] Urea nitrogen 17 mg/dL Invalid Interpretation Code 7-18 [facility] Work Phone: [phone] Clinical Lists Update: Prelo valeria 06-04-2016 Tobacco smoking status NHIS Tobacco smoking status NHIS Invalid Interpretation Code [facility] Work Phone: [phone] Tobacco smoking status NHIS Never smoker Invalid Interpretation Code [facility] Work Phone: [phone] Tobacco use CPHS Never smoker Invalid Interpretation Code [facility] Work Phone: [phone] Office Visit: [facility] 04-24-20 16 Cholesterol 125 mg/dL Invalid Interpretation Code [facility] Work Phone: [phone] HDL Cholesterol 52 mg/dL Invalid Interpretation Code [facility] Work Phone: [phone] LDL Cholesterol 59 mg/dL Invalid Interpretation Code [facility] Work Phone: [phone] Triglyceride 68 mg/dL Invalid Interpretation Code [facility] Work Phone: [phone] very low density lipoproteins 14 mg/dL Invalid Interpretation Code [facility] Work Phone: [phone] Vital Signs Date Time Vital Sign Value Performing Clinician Yeimi hernandez 04-11-2024 13:16-0500 Body height 165.1 cm No Primary Care Physician [facility] 04-11-2024 13:15-0500 Diastolic blood pressure 82 mm[Hg] No Primary Care Physician [facility] 04-11-2024 13:15-0500 Systolic blood pressure 176 mm[Hg] No Primary Care Physician [facility] 04-11-2024 13:00-0500 Body mass index (BMI) [Ratio] 28.6 kg/m2 No Primary Care Physician [facility] 04-11-2024 13:00-0500 Body weight 78.01 kg No Primary Care Physician [facility] 04-11-2024 13:00-0500 Heart rate 73 /min No Primary Care Physician [facility] 04-11-2024 13:00-0500 Respiratory rate 16 /min No Primary Care Physician [facility] 04-10-2024 10:14-0500 Body mass index (BMI) [Ratio] 28.8 kg/m2 No Primary Care Physician [facility] 04-10-2024 10:14-0500 Body weight 78.58 kg No Primary Care Physician [facility] 11-04-2022 14:20-0400 Body weight 81.[address] Emily Perry Work Phone: [facility] 11-04-2022 14:20-0400 Diastolic blood pressure 102 mm[Hg] Dr. Emily Perry Work Phone: [facility] 11-04-2022 14:20-0400 Heart rate 113 /min Dr. Emily Perry Work Phone: [facility] 11-04-2022 14:20-0400 Respiratory rate 16 /min Dr. Emily Perry Work Phone: [facility] 11-04-2022 14:20-0400 Systolic blood pressure 137 mm[Hg] Dr. Emily Perry Work Phone: [facility] 11-04-2022 11:58-0400 Body height 165.[address] Emily Perry Work Phone: [facility] 11-03-2021 10:57-0400 Body height 165.[address] Emily Perry Work Phone: [facility] Work Phone: 11-03-2021 10:57-0400 Body mass index (BMI) [Ratio] 28.3 kg/m2 Dr. Emily Perry Work Phone: [facility] Work Phone: 11-03-2021 10:57-0400 Body weight 77.[address] Emily Perry Work Phone: [facility] Work Phone: 11-03-2021 10:57-0400 Diastolic blood pressure 88 mm[Hg] Dr. Emily Perry Work Phone: [facility] Work Phone: 11-03-2021 10:57-0400 Systolic blood pressure 136 mm[Hg] Dr. Emily Perry Work Phone: [facility] Work Phone: 11-02-2021 15:06-0400 Body mass index (BMI) [Ratio] 28.6 kg/m2 Dr. Emily Perry Work Phone: [facility] Work Phone: 11-02-2021 15:06-0400 Body weight 78.[address] Emily Perry Work Phone: [facility] Work Phone: 11-02-2021 15:06-0400 Diastolic blood pressure 85 mm[Hg] Dr. Emily Perry Work Phone: [facility] Work Phone: 11-02-2021 15:06-0400 Heart rate 70 /min Dr. Emily Perry Work Phone: [facility] Work Phone: 11-02-2021 15:06-0400 Respiratory rate 16 /min Dr. Emily Perry Work Phone: [facility] Work Phone: 11-02-2021 15:06-0400 Systolic blood pressure 124 mm[Hg] Dr. Emily Perry Work Phone: [facility] Work Phone: 10-06-2021 13:43-0400 Body temperature 97.8 [degF] Dr. Emily Perry Work Phone: [facility] Work Phone: 10-06-2021 13:43-0400 Diastolic blood pressure 90 mm[Hg] Dr. Emily Perry Work Phone: [facility] Work Phone: 10-06-2021 13:43-0400 Heart rate 65 /min Dr. Emily Perry Work Phone: [facility] Work Phone: 10-06-2021 13:43-0400 Respiratory rate 16 /min Dr. Emily Perry Work Phone: [facility] Work Phone: 10-06-2021 13:43-0400 SaO2% (BldA) [Mass fraction] 97 % Dr. Emily Perry Work Phone: [facility] Work Phone: 10-06-2021 13:43-0400 Systolic blood pressure 160 mm[Hg] Dr. Emily Perry Work Phone: [facility] Work Phone: 09-20-2021 15:58-0400 Diastolic blood pressure 88 mm[Hg] Dr. Emily Perry Work Phone: [facility] Work Phone: 09-20-2021 15:58-0400 Systolic blood pressure 152 mm[Hg] Dr. Emily Perry Work Phone: [facility] Work Phone: 09-20-2021 15:42-0400 Body height 165.[address] Emily Perry Work Phone: [facility] Work Phone: 09-20-2021 15:42-0400 Body mass index (BMI) [Ratio] 28.3 kg/m2 Dr. Emily Perry Work Phone: [facility] Work Phone: 09-20-2021 15:42-0400 Body temperature 97.6 [degF] Dr. Emily Perry Work Phone: [facility] Work Phone: 09-20-2021 15:42-0400 Body weight 77.[address] Emily Perry Work Phone: [facility] Work Phone: 09-20-2021 15:42-0400 Heart rate 85 /min Dr. Emily Perry Work Phone: [facility] Work Phone: 09-20-2021 15:42-0400 Respiratory rate 16 /min Dr. Emily Perry Work Phone: [facility] Work Phone: 09-20-2021 15:42-0400 SaO2% (BldA) [Mass fraction] 94 % Dr. Emily Perry Work Phone: [facility] Work Phone: 02-10-2017 14:12-0400 BMI (Body Mass Index) 25.23 kg/m2 [facility] Work Phone: 02-10-2017 14:12-0400 BP Diastolic 76 mm[Hg] [facility] Work Phone: 02-10-2017 14:12-0400 BP Systolic 120 mm[Hg] Leslie Wells [facility] Work Phone: 02-10-2017 14:12-0400 Height 162.56 cm Leslie Wells [facility] Work Phone: 02-10-2017 14:12-0400 Pulse (Heart Rate) 78 /min [facility] Work Phone: 02-10-2017 14:12-0400 Respiratory Rate 16 /min Lesliecrhistie Wells [facility] Work Phone: 02-10-2017 14:12-0400 Weight 66.68 kg [facility]ie [facility] Work Phone: 07-29-2016 14:23-0400 BP Diastolic 62 mm[Hg] Denise Ngo RN [facility] Work Phone: 07-29-2016 14:23-0400 BP Systolic 108 mm[Hg] Denise Ngo RN [facility] Work Phone: 07-29-2016 14:23-0400 Height 162.56 cm Denise Ngo RN [facility] Work Phone: 07-29-2016 14:23-0400 Pulse (Heart Rate) 80 /min Denise Ngo RN [facility] Work Phone: 07-29-2016 [phone] Respiratory Rate 18 /min Denise Ngo RN [facility] Work Phone: 06-07-2016 12:20-0500 BMI (Body Mass Index) 25.23 kg/m2 Denise Ngo RN [facility] Work Phone: 06-07-2016 12:20-0500 BSA (Body Surface Area) 1.72 m2 Denise Ngo RN [facility] Work Phone: 06-07-2016 12:20-0500 Weight 66.68 kg Denise Ngo RN [facility] Work Phone: Encounters Encounter Date Encounter Type Care Provider Facility Start: 08-20-2024 End: 08-20-2024 ambulatory No Primary Care Physician [facility] Work Phone: Start: 08-20-2024 End: 08-20-2024 Patient encounter procedure Zebulun Beam SCREEN MAKING SUPERVISOR-C -Radiology, [facility] Work Phone: Start: 08-20-2024 End: 08-20-2024 ambulatory Zebulun Beam VSC Facility:[facility] Start: 07-18-2024 End: 07-18-2024 ambulatory No Primary Care Physician [facility] Work Phone: Start: 07-18-2024 End: 07-18-2024 Patient encounter procedure Zebulun Beam SCREEN MAKING SUPERVISOR-C -[facility] Start: 07-18-2024 End: 07-18-2024 ambulatory Zebulun Beam VSC Facility:[facility] Start: 07-10-2024 End: 07-10-2024 ambulatory No Primary Care Physician [facility] Work Phone: Start: 07-10-2024 End: 07-10-2024 Patient encounter procedure Zebulun Beam SCREEN MAKING SUPERVISOR-C -Outpatient Bone Densitometry Work Phone: Start: 07-10-2024 End: 07-10-2024 ambulatory Zebulun Beam VSC Facility:[facility] Start: 05-24-2024 End: 05-24-2024 Patient encounter procedure Marvel Tirado SCREEN MAKING SUPERVISOR-C -Laboratory Work Phone: Start: 05-24-2024 End: 05-24-2024 ambulatory Abramroyaasia Tirado VSC Facility:[facility] Start: 04-18-2024 End: 04-18-[address] Skyler Herman MD -Physical Therapy Work Phone: Start: 04-18-2024 End: 04-18-2024 ambulatory Skyler Herman Facility:[facility] Start: 04-11-2024 End: 04-11-2024 Patient encounter procedure Amadeo Zambrano SCREEN MAKING SUPERVISOR-C -[facility] Work Phone: Start: 04-11-2024 End: 04-11-2024 ambulatory Amadeo Zambrano SCREEN MAKING SUPERVISOR Facility:[facility] Start: 04-10-2024 End: 04-10-[address] Skyler Herman MD -[facility] Work Phone: Start: 04-10-2024 End: 04-10-2024 ambulatory Skyler Herman Facility:[facility] Start: 04-03-2024 End: 04-03-2024 Patient encounter procedure Shanna Alarcon SCREEN MAKING SUPERVISOR-C -Laboratory Work Phone: Start: 04-03-2024 End: 04-03-2024 ambulatory Shanna Alarcon NP Facility:[facility] Start: 11-09-2023 ambulatory Jon Chi Diogo Facility:[facility] Start: 11-09-2023 End: 11-09-2023 ambulatory Jon Chi Diogo Facility:[facility] Start: 11-03-2023 End: 11-03-2023 ambulatory Jon Chi Diogo Facility:[facility] Start: 01-06-2023 End: 01-06-[address] Emily Perry Work Phone: [facility] Work Phone: Start: 01-06-2023 End: 01-06-[address] Emily Perry Work Phone: [facility]-Marky Bustamante [facility] Start: 11-04-2022 End: 11-04-[address] Emily Perry Work Phone: [facility] Work Phone: Start: 11-04-2022 End: 11-04-[address] Emily Perry Work Phone: [facility] Start: 03-18-2022 End: 03-18-20[facility] Start: 03-18-2022 End: 03-18-2022 Patient encounter procedure Jake Barbosa MD Work Phone: Orthopaedics Comment on above: Chronic pain of left knee (Primary Dx); Primary osteoarthritis of left knee Start: 03-01-2022 End: 03-01-2022 ambulatory EMILY TRUDY SCPARUL Facility:[facility] Start: 03-01-2022 End: 03-01-2022 Patient encounter procedure Jake Barbosa MD Work Phone: Orthopaedics Comment on above: Avulsion fracture of distal fibula (Primary Dx) Start: 03-01-2022 End: 03-01-2022 Subsequent hospital visit by physician [facility] Work Phone: Radiology Comment on above: Avulsion fracture of distal fibula [S82.839A] Start: 02-22-2022 Orders Only Jake Barbosa MD Work Phone: Orthopaedics Comment on above: Avulsion fracture of distal fibula (Primary Dx) Start: 02-04-2022 End: 02-04-2022 ambulatory EMILY PERRY Facility:[facility] Start: 02-04-2022 End: 02-04-2022 Patient encounter procedure Jake Barbosa MD Work Phone: Orthopaedics Comment on above: Avulsion fracture of distal fibula (Primary Dx) Start: 01-28-2022 Telephone encounter Jake smyth MD Work Phone: Orthopaedics Comment on above: Patient Update Start: 11-27-2021 End: 11-27-[address] Emily Perry Work Phone: [facility]-Laboratory Start: 11-23-2021 End: 11-23-[address] Emily Perry Work Phone: [facility]-Outpatient Breast Imaging Start: 11-03-2021 End: 11-03-[address] Emily Perry Work Phone: [facility] Start: 11-02-2021 End: 11-02-[address] Emily Perry Work Phone: [facility] Start: 10-06-2021 End: 10-06-[address] Emily Perry Work Phone: [facility] Neurology Start: 09-20-2021 End: 09-20-2021 Emergency department patient visit Dr. Emily Perry Work Phone: [facility]-Emergency Department Start: 07-14-2021 Non-patient / Non-visit Dr. Serg Perry Work Phone: [facility] Start: 07-14-2021 End: 07-14-[address] Emily Perry Work Phone: [facility]-Cardiovascula r Services Start: 11-29-2020 End: 11-29-2020 Subsequent hospital visit by physician Xr [facility] Work Phone: Radiology Comment on above: Cough [R05] Start: 01-20-2018 End: 01-21-2018 Patient encounter DEEDEE OLIVER Facility:[facility] Procedures Date Procedure Procedure Detail Performing Clinician Start: 08-20-2024 Plain X-ray of shoulder No Primary Care Physician Start: 07-10-2024 Dual energy X-ray absorptiometry No Primary Care Physician Start: 04-10-2024 Plain x-ray of pelvi s and lower extremity No Primary Care Physician Start: 11-23-2021 Screening mammography Juan R Perry Work Phone: Start: 09-20-2021 Plain X-ray of shoulder Dr. Emily Perry Work Phone: Start: 11-29-2020 Radiologic exam ches t 2 views Amorterrence García APRN.ARCHITECT MANAGER Work Phone: Start: 07-09-2020 Mammography Jake smyth MD Work Phone: Start: 02-19-2019 Colonoscopy Jake smyth MD Work Phone: Start: 10-24-2018 Antibody screen Comment on above: Performed By: #### T +S #### [facility] [address] [place] [address] Start: 02-10-2017 End: 02-10-2017 REINIER Sotelo MD Work Phone: Start: 02-10-2017 End: 02-10-2017 Follow Up Appt 6 months Zane Sotelo MD Work Phone: Start: 02-10-2017 End: 02-10-2017 REINIER Sotelo MD Work Phone: Start: 02-10-2017 End: 02-10-2017 Follow Up Appt 6 months Zane Sotelo MD Work Phone: Start: 07-29-2016 End: 07-29-2016 REINIER Sotelo MD Work Phone: Start: 07-29-2016 End: 07-29-2016 Follow Up Appt 6 months Zane Sotelo MD Work Phone: Start: 07-29-2016 End: 07-29-2016 REINIER Sotelo MD Work Phone: Start: 07-29-2016 End: 07-29-2016 Follow Up Appt 6 months Zane Sotelo MD Work Phone: Start: 07-12-2016 End: 07-14-2016 *BMP Shane A Gilliam ORNAMENTAL METAL ERECTOR APPRENTICE-C Start: 07-12-2016 End: 07-14-2016 *BMP Shane Sahni Gilliam ORNAMENTAL METAL ERECTOR APPRENTICE-C Start: 06-07-2016 End: 06-07-2016 DJN Shane Sahni Gilliam ORNAMENTAL METAL ERECTOR APPRENTICE-C Start: 06-07-2016 End: 06-07-2016 Follow Up Appt 6 weeks Shane Gilliam ORNAMENTAL METAL ERECTOR APPRENTICE- C Start: 06-07-2016 End: 07-23-2016 Xtrnl mobile cv telemetry w/i&report 30 days Shane Sahni Gilliam ORNAMENTAL METAL ERECTOR APPRENTICE-C Start: 06-07-2016 End: 06-07-2016 DJN Shane Sahni Gilliam ORNAMENTAL METAL ERECTOR APPRENTICE-C Start: 06-07-2016 End: 06-07-2016 Follow Up Appt 6 weeks Shane Sahni Gilliam ORNAMENTAL METAL ERECTOR APPRENTICE- C Start: 06-07-2016 End: 07-23-2016 Remote 30 day ecg rev/report Shane Gilliam ORNAMENTAL METAL ERECTOR APPRENTICE-C Start: 05-16-2006 Lipid 1996 panel - S julieta or Plasma [facility] Work Phone: Plan of Treatment Date Care Activity Detail Author Start: 02-19-2029 Colonoscopy COLONOSCOPY [facility] Start: 02-19-2029 COLORECTAL CANCER SCREENING COLORECTAL CANCER SCREENING [facility] Start: 02-19-2029 Screening for malign ant neoplasm of colon [facility] Start: 04-10-2024 Patient referral [facility] Work Phone: Start: 01-15-2024 Covid-19 Vaccine ( season) Covid-19 Vaccine () [facility] Start: 01-15-2024 Influenza vaccination Influenza Vacc ine (#1) [facility] Start: 05-16-2023 Advance Directive Discussion Advance Directive Discussion [facility] Start: 02-26-2023 RSV Vaccine (1 - 1-d ose 75+ series) RSV Vaccine (1 - 1-dose 75+ series) [facility] Start: 01-14-2022 Influenza vaccination INFLUENZA (#1) [facility] Start: 07-09-2021 Mammography MAMMOGRAM [facility] Start: 05-16-2021 ADVANCE DIRECTIVE DISCUSSION ADVANCE DIRECTIVE DISCUSSION [facility] Start: 05-16-2021 DEPRESSION ASSESSMENT DEPRESSION ASS ESSMENT [facility] Start: 08-16-2017 End: 08-16-2017 Appointment Appointment [facility] Work Phone: Start: 02-10-2017 End: 02-10-2017 Appointment Appointment [facility] Work Phone: Start: 02-10-2017 End: 02-10-2017 *Hepatic Function Panel *Hepatic Function Panel [facility] Work Phone: Start: 02-10-2017 End: 02-10-2017 DJN ANNAN [facility] Work Phone: Start: 02-10-2017 End: 02-10-2017 Follow Up Appt 6 months Follow Up Appt 6 months [facility] Work Phone: Start: 02-10-2017 End: 02-10-2017 Lipid 1996 panel *Lipid Profile CC PCP [facility] Work Phone: Start: 02-10-2017 End: 02-10-2017 *Hepatic Function Panel *Hepatic Function Panel [facility] Work Phone: Start: 02-10-2017 End: 02-10-2017 REINIER CASTILLON [facility] Work Phone: Start: 02-10-2017 End: 02-10-2017 Follow Up Appt 6 months Follow Up Appt 6 months [facility] Work Phone: Start: 02-10-2017 End: 02-10-2017 Lipid panel [AGGREGATE] *Lipid Profile CC PCP [facility] Work Phone: Start: 07-29-2016 End: 07-29-2016 DJN DJN [facility] Work Phone: Start: 07-29-2016 End: 07-29-2016 Follow Up Appt 6 months Follow Up Appt 6 months [facility] Work Phone: Start: 07-29-2016 End: 07-29-2016 DJN DJN [facility] Work Phone: Start: 07-29-2016 End: 07-29-2016 Follow Up Appt 6 months Follow Up Appt 6 months [facility] Work Phone: Start: 07-12-2016 End: 07-14-2016 *BMP *BMP [facility] Work Phone: Start: 07-12-2016 End: 07-14-2016 *BMP *BMP [facility] Work Phone: Start: 06-07-2016 End: 06-07-2016 REINIER HILLS [facility] Work Phone: Start: 06-07-2016 End: 06-07-2016 Follow Up Appt 6 weeks Follow Up Appt 6 weeks [facility] Work Phone: Start: 06-07-2016 End: 06-07-2016 Xtrnl mobile cv telemetry w/i&report 30 days 30 Day Holter Monitor [facility] Work Phone: Start: 06-07-2016 End: 06-07-2016 REINIER HILLS [facility] Work Phone: Start: 06-07-2016 End: 06-07-2016 Follow Up Appt 6 weeks Follow Up Appt 6 weeks [facility] Work Phone: Start: 06-07-2016 End: 06-07-2016 Remote 30 day ecg rev/report 30 Day Holter Monitor [facility] Work Phone: Start: 02-26-2013 Pneumococcal Vaccine : 65+ (1 of 1 - PCV) Pneumococcal Vaccine: 65+ (1 of 1 - PCV) [facility] Start: 02-26-2013 PNEUMOCOCCAL: 65+ (1 - PCV) PNEUMOCOCCAL: 65+ (1 - PCV) [facility] Start: 05-16-2011 Lipid panel Lipid Screening [facility] Start: 05-16-2011 LIPID SCREEN LIPID SCREEN [facility] Start: 05-16-2009 DIABETES SCREEN DIABETES SCREEN [facility] Start: 05-16-2009 Diabetes Screening Diabetes Screenin g [facility] Start: 02-26-1998 SHINGRIX VACCINE (1 of 2) SHINGRIX VACCINE (1 of 2) [facility] Start: 02-26-1993 COLOGUARD (FIT-DNA) COLOGUARD (FIT-D NA) [facility] Start: 02-26-[address] COLONOGRAPHY [facility] Start: 02-26-1993 FECAL OCCULT BLOOD FECAL OCCULT BLOO D [facility] Start: 02-26-1993 Screening for malign ant neoplasm of colon [facility] Start: 02-26-1993 SIGMOIDOSCOPY SIGMOIDOSCOPY Teresa pete [facility] Start: 02-26-1967 Urine microalbumin profile [facility] Start: 02-26-1966 Anxiety Screening Anxiety Screening [facility] Start: 02-26-1966 Depression Screening Depression Scre ening [facility] Start: 02-26-1966 HEPATITIS C SCREENING HEPATITIS C [facility] Start: 02-26-1966 Hepatitis C screening Hepatitis C [facility] Start: 1960 Adult depression screening assessment DEPRESSION SCREENING [facility] Start: 1950 COVID-19 VACCINE (#1) COVID-19 VACCI NE (#1) [facility] Blood chemistry [facility] Work Phone: Patient Education ED Shoulder Sprain [facility] Work Phone: Patient referral [facility] Work Phone: End: 03-24-2023 XR ANKLE GENERAL 3V AP/LAT/OBL RIGHT XR ANKLE GENERAL 3V AP/LAT/OBL RIGHT Radiology Routine Avulsion fracture of distal fibula 1 Occurrences starting 02/22/2022 until 03/24/2023 [facility] Work Phone: Comment on above: 1 Occurrences starti ng 02/22/2022 until 03/24/2023 End: 03-01-2022 XR ANKLE GENERAL 3V AP/LAT/OBL RIGHT [facility] Work Phone: Comment on above: 1 Occurrences starti ng 03/01/2022 until 03/01/2022 [facility] Payers Date Payer Category Payer Self-pay [id number] 2018 Medicare MMO MEDICARE MMO [employer]VANTAGE PPO [id number] 2018-Present [phone] [address] [place] [address] PPO [id number] 2015 Medicare [id number] Unknown [id number] 62 Unknown [id number] 62 Unknown [id number] 62 Unknown [id number] 62 Unknown [id number] 62 Unknown [id number] 62 Unknown [id number] 62 Unknown [id number] 62 Unknown [id number] 62 Unknown [id number] 62 Unknown [id number] 62 Unknown [id number] 62 Social History Date Type Detail Facility Start: 09-20-2021 End: 11-04-2022 Tobacco smoking status ARIS Unknown if ever smoked [facility] Start: 09-07-2018 None [facility] Start: 09-07-2018 Spouse/ Signif icant Other [facility] Start: 10-27-2018 Non-smoker [facility] Start: 1950 Sex Assigned At Female W [facility] Start: 11-14-2013 End: 11-04-2022 Tobacco smoking status ARIS Never smoked tobacco [facility] Work Phone: Start: 11-14-2013 Tobacco use and exposure Smokeless tobacco non-user [facility] Work Phone: Start: 11-29-2020 End: 04-19-2022 Alcohol intake Current non-drinker of alcohol (finding) [facility] Start: 1950 Sex Assigned At Not on file [facility] [place] Start: 01-18-2022 End: 01-28-2022 Exposure to SARS-CoV-2 (event) Unable to assess [facility] Work Phone: Start: 10-30-2020 End: 03-18-2022 Exposure to SARS-CoV-2 (event) Not sure [facility] Start: 04-20-2020 End: 11-29-2020 History of Social function [facility] Start: 04-20-2020 End: 11-29-2020 Tobacco use panel [facility] National Score (1-100), lower number is lower risk Not on file [facility] Start: 07-24-2024 End: 08-23-2024 Sex Female (finding) [facility] Clinical Notes 11-29-2020 to 08-20-2024 Note Date & Type Note Facility 08-20-2024 Radiology Diagnostic study note [facility] Imaging Services [address] [place], [place] [address] Shoulder min 2 Views MR#: [id number] Acct: [id number] Name: YAA BENITEZ Rep #: [id number] : 1950 F 74 From: Cristofer Foster DO PCP: Marvel Tirado [facility] SCREEN MAKING SUPERVISOR-C Status: REG CLI Study:Shoulder min 2 Views Date of Exam: 08/20/24 Exam# [id number] Ordering Dr: Liam Tirado [facility] SCREEN MAKING SUPERVISOR-C PROCEDURE: Right shoulder radiographs, four views 08/20/2024 REASON FOR EXAM: PAIN IN RIGHT SHOULDER TECHNIQUE: Four views of the right shoulder were obtained. COMPARISON: None available FINDINGS: Four views of the right shoulder were obtained. Bones are osteopenic. Includedright lung clear. No acute fracture or dislocation of the right shoulder. Mild degenerative change of the right acromioclavicular joint. No AC joint widening. Subacromial space is maintained. Moderate degenerative change right glenohumeral joint. RAD/Shoulder min 2 Views IMPRESSION: Osteopenia. No acute abnormality of the right shoulder. Moderate degenerative change right glenohumeral joint. Mild degenerative change right acromioclavicular joint. Reading Location: [facility] CC: Marvel [facility] SCREEN MAKING SUPERVISOR-C Beam ~ Bench Examiner: Signed [facility] 04-10-2024 Evaluation note Diagnosis Onset Date Resolution Greater trochanteric bursitis of left hip acute April 102023 10:10am Left hip pain acute April 102023 10:10am Essential hypertension chronic No vember 2023 12:57pm Hyperlipidemia chronic March 172023 12:57pm SVT (supraventricular tachycardia) chronic April 11 12:57pm [facility] Work Phone: [phone] 216-142011-03-2022 NoteHNO ID: [id number] Author: Jake Barbosa MD Service: ? Author Type: Physician Type: Progress Notes Filed: 04/19/2022 7:42 AM Note Text: Jake Barbosa MD Department of Orthopaedics Orthopaedics [address] [facility] [address] Dept: [phone] Dept March 18, 2022 CHIEF COMPLAINT: Established Patient and Knee Pain of the Left Knee and Last seen 03/01/22 Right distal fibula fracture HPI Patient here today for left knee pain. No specific injury. She is having medial aspect and feels her knee feels warm. Patient was unaware she needed x-rays. No x-rays done prior to appointment. Patient states she is having difficulty getting up out of a chair due to the pain. Patient states she is continuing to have some swelling in her right ankle. She stopped wearing the fracture boot last week and has been wearing a regular shoe. with patient today. AMB ROOMING INTAKE FLOWSHEET DATA Risk Screening Do you have concerns about personal safety or safety in the home?: No Pain Pain Level: 8 Pain Location: Knee-Left Description: Aching, Dull Duration Amount of Time: 5 Duration Units: Days Frequency: Continuous Intervention/Comfort measure: Medication ASSESSMENT: M25.562, G89.29 Chronic pain of left knee (primary encounter diagnosis) M17.12 Primary osteoarthritis of left knee PLAN: While she has been protecting her ankle, I think she may have just been compensating with the knee. We will try an anti-inflammatory for now. May consider cortisone injection in the future. She would likely start to feel bit better as she can wean out of the walking boot. Ms. Yaa Benitez was advised as to contrast therapies and/or to take analgesics/anti-inflammatories as needed and all contraindications were reviewed. OBJECTIVE: Ms. Yaa Benitez is a pleasant 72 year old in no apparent distress. Gen:There were no vitals taken for this visit. nl development, non obese, no deformities ENT: Normocephalic, normal hearing, moist mucosa CV: Pulses:DP/PT= 2+ and symmetric, capillary refill < 2 secs, no peripheral edema/varicosities Skin: no rash, bruising or lesions. Good turgor. Psych: cooperative and appropriate, alert and oriented x 3, good mood and affect. Musculoskeletal: No effusion at the knee. Some mild medial joint space tenderness. Ligamentous exam appears intact. 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 CORRECT BUNION,SIMPLE Bunion DENTAL TMJ ARTHROGRAM INCL I DILATION AND CURETTAGE DXAND/THER NONOBSTETRIC hysteroscopy ENDOMETRIAL BX W/WO ENDOCERVIX BX W/O DILAT SPX 06/10/06 superficial endometrium LIG/TRNSXJ FLP TUBE ABDL/VAG APPR UNI/BI LIGAT,DIV, AND/OR EXCISE 2ND VARICOSE VEINS 2012 [place] NEUROPLASTY AND/TRANSPOS MEDIAN NRV CARPAL TUNNE Carpal tunnel decomp XCAPSL CTRC RMVL INSJ IO LENS PROSTH W/O ECP Cataract Removal right eye Medications: Current Outpatient Medications Medication Sig losartan (COZAAR) 50 mg tablet Take 50 mg by mouth once daily. cholecalciferol (VITAMIN D3) 1,000 unit tab tablet Take 1,000 Units by mouth once daily. fenofibrate nanocrystallized (TRICOR) 145 mg tablet Take 1 tablet by mouth once daily. dilTIAZem CD (CARDIZEM CD, CARTIA XT) 120 mg 24 hr capsule Take 120 mg by mouth once daily. acetaminophen-HYDROcodone (VICODIN) 5-500 mg tablet Take 1 tablet by mouth every 6 hours as needed. 1/2 tablet as needed. benzonatate (TESSALON PERLE) 100 mg capsule Take 2 capsules by mouth three times daily as needed. (Patient not taking: Reported on 03/18/2022) sertraline (ZOLOFT) 100 mg tablet 100 mg twice daily. (Patient not taking: Reported on 02/04/2022) FENOFIBRATE MICRONIZED ORAL Take by mouth. (Patient not taking: Reported on 09/28/2020 ) Quinapril-Hydrochlorothiazide 20-12.5 mg ORAL per tablet Take one(1) tablet daily. (Patient not taking: ) ZOLOFT 100 MG TAB (Patient not taking: ) WELLBUTRIN SR 200 MG TAB (Patient not taking: ) No current facility-administered medications for this visit. Allergies: Bacitracin, Ciprofloxacin, Flagyl [Metronidazole], Polymyxin [Bacitracin-Polymyxin B], and Neosporin [Okjcejda-Mowvwyjlas-Ekrsiblux] ROS: General (negative for fatigue, malaise, weight loss/gain) HEENT (negative for headache, earache, recent vision changes, sinus pain, sore throat) Respiratory (no recent shortness of breath, hemoptysis) CV (negative for chest tightness, palpitations) Musculoskeletal (see HPI) Psych (no depression, anxiety) Jake Barbosa [facility]11-03-2022 History of Present illness Narrative* Jake Barbosa MD - 03/18/2022 2:51 PM EDT Jake Barbosa MD Department of Orthopaedics [facility] [address] [facility] [address] Dept: [phone] Dept March 18, 2022 CHIEF COMPLAINT: Established Patient and Knee Pain of the Left Knee and Last seen 03/01/22 Right distal fibula fracture HPI Patient here today for left knee pain. No specific injury. She is having medial aspect and feels her knee feels warm. Patient was unaware she needed x-rays. No x-rays done prior to appointment. Patient states she is having difficulty getting up out of a chair due to the pain. Patient states she is continuing to have some swelling in her right ankle. She stopped wearing the fracture boot last weekand has been wearing a regular shoe. with patient today. AMB ROOMING INTAKE FLOWSHEET DATA Risk Screening Do you have concerns about personal safety or safety in the home?: No Pain Pain Level: 8 Pain Location: Knee-Left Description: Aching, Dull Duration Amount of Time: 5 Duration Units: Days Frequency: Continuous Intervention/Comfort measure: Medication ASSESSMENT: M25.562, G89.29 Chronic pain of left knee (primary encounter diagnosis) M17.12 Primary osteoarthritis of left knee PLAN: While she has been protecting her ankle, I think she may have just been compensating with the knee.We will try an anti-inflammatory for now. May consider cortisone injection in the future. She wouldlikely start to feel bit better as she can wean out of the walking boot. Ms. Yaa Benitez was advised as to contrast therapies and/or to take analgesics/anti-inflammatoriesas needed and all contraindications were reviewed. OBJECTIVE: Ms. Yaa eBnitez is a pleasant 72 year old in no apparent distress. Gen:There were no vitals taken for this visit. nl development, non obese, no deformities ENT: Normocephalic, normal hearing, moist mucosa CV: Pulses:DP/PT= 2+ and symmetric, capillary refill < 2 secs, no peripheral edema/varicosities Skin: no rash, bruising or lesions. Good turgor. Psych: cooperative and appropriate, alert and oriented x 3, good mood and affect. Musculoskeletal: No effusion at the knee. Some mild medial joint space tenderness. Ligamentous exam appears intact. Imaging: Pending Supporting Subjective Information Below: Past Surgical History: PAST SURGICAL HISTORY Procedure Laterality Date COLONOSCOPY FLX DX W/COLLJ SPEC WHEN PFRMD 05/2007 Colonoscopy COLONOSCOPY FLX DX W/COLLJ SPEC WHEN PFRMD 07/26/2016 Colonoscopy COLPOSCOPY CERVIX UPPER/ADJACENT VAGINA Colposcopy w/ Bx CONIZATION CERVIX W/WO D&C RPR ELTRD EXC 09/08/05 severe squamous dysplasia with clear margins after leep. CORRECT BUNION,SIMPLE Bunion DENTAL TMJ ARTHROGRAM INCL I DILATION & CURETTAGE DX&/THER NONOBSTETRIC hysteroscopy ENDOMETRIAL BX W/WO ENDOCERVIX BX W/O DILAT SPX 06/10/06 superficial endometrium LIG/TRNSXJ FLP TUBE ABDL/VAG APPR UNI/BI LIGAT,DIV, &/OR EXCISE 2ND VARICOSE VEINS 2012 [place] NEUROPLASTY &/TRANSPOS MEDIAN NRV CARPAL TUNNE Carpal tunnel decomp XCAPSL CTRC RMVL INSJ IO LENS PROSTH W/O ECP Cataract Removal right eye Medications: Current Outpatient Medications Medication Sig losartan (COZAAR) 50 mg tablet Take 50 mg by mouth once daily. cholecalciferol (VITAMIN D3) 1,000 unit tab tablet Take 1,000 Units by mouth once daily. fenofibrate nanocrystallized (TRICOR) 145 mg tablet Take 1 tablet by mouth once daily. dilTIAZem CD (CARDIZEM CD, CARTIA XT) 120 mg 24 hr capsule Take 120 mg by mouth once daily. acetaminophen-HYDROcodone (VICODIN) 5-500 mg tablet Take 1 tablet by mouth every 6 hours as needed.1/2 tablet as needed. benzonatate (TESSALON PERLE) 100 mg capsule Take 2 capsules by mouth three times daily as needed. (Patient not taking: Reported on 03/18/2022) sertraline (ZOLOFT) 100 mg tablet 100 mg twice daily. (Patient not taking: Reported on 02/04/2022) FENOFIBRATE MICRONIZED ORAL Take by mouth. (Patient not taking: Reported on 09/28/2020 ) Quinapril-Hydrochlorothiazide 20-12.5 mg ORAL per tablet Take one(1) tablet daily. (Patient not taking: ) ZOLOFT 100 MG TAB (Patient not taking: ) WELLBUTRIN SR 200 MG TAB (Patient not taking: ) No current facility-administered medications for this visit. Allergies: Bacitracin, Ciprofloxacin, Flagyl [Metronidazole], Polymyxin [Bacitracin-Polymyxin B], and Neosporin [Cixpmvlg-Czlsrwtfll-Surhjzksd] ROS: General (negative for fatigue, malaise, weight loss/gain) HEENT (negative for headache, earache, recent vision changes, sinus pain, sore throat) Respiratory (no recent shortness of breath, hemoptysis) CV (negative for chest tightness, palpitations) Musculoskeletal (see HPI) Psych (no depression, anxiety) Jake Barbosa [facility] NoteHNO ID: [id number] Author: Jake Barbosa MD Service: ? Author Type: Physician Type: Progress Notes Filed: 03/22/2022 7:47 AM Note Text: Jake Barbosa MD Department of Orthopaedics Orthopaedics [address] [facility] [address] Dept: [phone] Dept March 01, 2022 CHIEF COMPLAINT: Established Patient and Follow Up of the Right Ankle HPI Patient is here today 4 weeks 4 days post fracture of right distal fibula. Patient states she is not having pain and has been ambulating fine in the walking boot. [facility] at [facility]. ASSESSMENT: S82.839A Avulsion fracture of distal fibula (primary encounter diagnosis) PLAN: Patient just over 4 weeks from her distal fibula fracture. She is doing well. We will continue her in her walking boot. We will see her back in another 2 to 4 weeks. Ms. Yaa Benitez was advised as to contrast therapies and/or to take analgesics/anti-inflammatories as needed and all contraindications were reviewed. OBJECTIVE: Ms. Yaa Benitez is a pleasant 72 year old in no apparent distress. Gen:There were no vitals taken for this visit. nl development, non obese, no deformities ENT: Normocephalic, normal hearing, moist mucosa CV: Pulses:Radial= 2+ and symmetric, capillary refill < 2 secs, no peripheral edema/varicosities Skin: no rash, bruising or lesions. Good turgor. Psych: cooperative and appropriate, alert and oriented x 3, good mood and affect. Musculoskeletal: Swelling is down a bit. Very minimal if any tenderness over the lateral malleolus. Imaging: IMPRESSION: Healing distal fibular fracture. Bench Examiner: MARGIE Transcribe Date/Time: Mar 02 2022 1:34P Dictated by : YIFAN FERNANDEZ MD This examination was interpreted and the report reviewed and electronically signed by: YIFAN FERNANDEZ MD on Mar 02 2022 1:36PM EST Results-Findings * * *Final Report* * * DATE OF EXAM: Mar 01 2022 10:24AM [id number] - XR ANKLE 3V AP/LAT/OBL RT / PROCEDURE REASON: Avulsion fracture of distal fibula * * * * Physician Interpretation * * * * CLINICAL INDICATION: Avulsion fracture TECHNIQUE: 3 view radiographic study of the right ankle COMPARISON: Radiograph dated January 27, 2022 FINDINGS: Healing transverse fracture of the distal fibula with healing manifest by increased sclerosis noting the fracture lucency remains evident. Dorsal and plantar calcaneal enthesophytes. Calcifications project in the region of the distal Achilles. Supporting Subjective Information Below: Past Surgical History: PAST SURGICAL HISTORY Procedure Laterality Date COLONOSCOPY FLX DX W/COLLJ SPEC WHEN PFRMD 05/2007 Colonoscopy COLONOSCOPY FLX DX W/COLLJ SPEC WHEN PFRMD 07/26/2016 Colonoscopy COLPOSCOPY CERVIX UPPER/ADJACENT VAGINA Colposcopy w/ Bx CONIZATION CERVIX W/WO DANDC RPR ELTRD EXC 09/08/05 severe squamous dysplasia with clear margins after leep. CORRECT BUNION,SIMPLE Bunion DENTAL TMJ ARTHROGRAM INCL I DILATION AND CURETTAGE DXAND/THER NONOBSTETRIC hysteroscopy ENDOMETRIAL BX W/WO ENDOCERVIX BX W/O DILAT SPX 06/10/06 superficial endometrium LIG/TRNSXJ FLP TUBE ABDL/VAG APPR UNI/BI LIGAT,DIV, AND/OR EXCISE 2ND VARICOSE VEINS 2012 [place] NEUROPLASTY AND/TRANSPOS MEDIAN NRV CARPAL TUNNE Carpal tunnel decomp XCAPSL CTRC RMVL INSJ IO LENS PROSTH W/O ECP Cataract Removal right eye Medications: Current Outpatient Medications Medication Sig losartan (COZAAR) 50 mg tablet Take 50 mg by mouth once daily. cholecalciferol (VITAMIN D3) 1,000 unit tab tablet Take 1,000 Units by mouth once daily. benzonatate (TESSALON PERLE) 100 mg capsule Take 2 capsules by mouth three times daily as needed. fenofibrate nanocrystallized (TRICOR) 145 mg tablet Take 1 tablet by mouth once daily. dilTIAZem CD (CARDIZEM CD, CARTIA XT) 120 mg 24 hr capsule Take 120 mg by mouth once daily. acetaminophen-HYDROcodone (VICODIN) 5-500 mg tablet Take 1 tablet by mouth every 6 hours as needed. 1/2 tablet as needed. sertraline (ZOLOFT) 100 mg tablet 100 mg twice daily. (Patient not taking: Reported on 02/04/2022) FENOFIBRATE MICRONIZED ORAL Take by mouth. (Patient not taking: Reported on 09/28/2020 ) Quinapril-Hydrochlorothiazide 20-12.5 mg ORAL per tablet Take one(1) tablet daily. (Patient not taking: ) ZOLOFT 100 MG TAB (Patient not taking: ) WELLBUTRIN SR 200 MG TAB (Patient not taking: ) No current facility-administered medications for this visit. Allergies: Bacitracin, Ciprofloxacin, Flagyl [Metronidazole], Polymyxin [Bacitracin-Polymyxin B], and Neosporin [Ndgwrrod-Fhxbuqjjvk-Zgnzeobea] ROS: General (negative for fatigue, malaise, weight loss/gain) HEENT (negative for headache, earache, recent vision changes, sinus pain, sore throat) Respiratory (no recent shortness of breath, hemoptysis) CV (negative for chest tightness, palpitations) Musculoskeletal (see HPI) Psych (no depre (more content not included)...[facility] 03-01-2022 NoteHNO ID: [id number] Author: Adela Reina RT(R) Service: Radiology Author Type: Technologist Type: Progress Notes Filed: 03/01/2022 10:25 AM Note Text: Radiology Service Progress Note PATIENT NAME: Yaa Benitez DATE OF SERVICE: March 01, 2022 TIME: 10:16 AM PATIENT IDENTITY VERIFICATION COMPLETED USING TWO (2) IDENTIFIERS: Name and Date of confirmed by patient verbally. FALL SCREENING: Has the patient had 2 falls in the last year or 1 fall with injury or currently using an Ambulatory Assistive Device (Walker, Cane, Wheelchair, Crutches, etc.)? No PATIENT GENDER DATA: Female. status: : No status: NO. PATIENT RELEVANT IMPLANT DATA REVIEWED: Yes RADIOLOGY DEPARTMENT: General X-ray: Exam(s) Completed: Lower Extremity X-Ray(s): Ankle, Right and Wt. Bearing PERIPHERAL IV DATA: Not applicable SIGNED BY: Adela Reina, RT(R) March 01, 2022 10:16 [facility]10-17-2022 History of Present illness Narrative* Jake Barbosa MD - 03/01/2022 11:06 AM EDT Jake Barbosa MD Department of Orthopaedics Orthopaedics [address] [facility] [address] Dept: [phone] Dept March 01, 2022 CHIEF COMPLAINT: Established Patient and Follow Up of the Right Ankle HPI Patient is here today 4 weeks 4 days post fracture of right distal fibula. Patient states she is not having pain and has been ambulating fine in the walking boot. [facility] taken today at [facility]. ASSESSMENT: S82.839A Avulsion fracture of distal fibula (primary encounter diagnosis) PLAN: Patient just over 4 weeks from her distal fibula fracture. She is doing well. We will continue her in her walking boot. We will see her back in another 2 to 4 weeks. Ms. Yaa Benitez was advised as to contrast therapies and/or to take analgesics/anti-inflammatoriesas needed and all contraindications were reviewed. OBJECTIVE: Ms. Yaa Benitez is a pleasant 72 year old in no apparent distress. Gen:There were no vitals taken for this visit. nl development, non obese, no deformities ENT: Normocephalic, normal hearing, moist mucosa CV: Pulses:Radial= 2+ and symmetric, capillary refill < 2 secs, no peripheral edema/varicosities Skin: no rash, bruising or lesions. Good turgor. Psych: cooperative and appropriate, alert and oriented x 3, good mood and affect. Musculoskeletal: Swelling is down a bit. Very minimal if any tenderness over the lateral malleolus. Imaging: IMPRESSION: Healing distal fibular fracture. Bench Examiner: PSCB Transcribe Date/Time: Mar 02 2022 1:34P Dictated by : YIFAN FERNANDEZ MD This examination was interpreted and the report reviewed and electronically signed by: YIFAN FERNANDEZ MD on Mar 02 2022 1:36PM EST Results-Findings * * *Final Report* * * DATE OF EXAM: Mar 01 2022 10:24AM [id number] - XR ANKLE 3V AP/LAT/OBL RT / PROCEDURE REASON: Avulsion fracture of distal fibula * * * * Physician Interpretation * * * * CLINICAL INDICATION: Avulsion fracture TECHNIQUE: 3 view radiographic study of the right ankle COMPARISON: Radiograph dated January 27, 2022 FINDINGS: Healing transverse fracture of the distal fibula with healing manifest by increased sclerosis noting the fracture lucency remains evident. Dorsal and plantar calcaneal enthesophytes. Calcifications project in the region of the distal Achilles. Supporting Subjective Information Below: Past Surgical History: PAST SURGICAL HISTORY Procedure Laterality Date COLONOSCOPY FLX DX W/COLLJ SPEC WHEN PFRMD 05/2007 Colonoscopy COLONOSCOPY FLX DX W/COLLJ SPEC WHEN PFRMD 07/26/2016 Colonoscopy COLPOSCOPY CERVIX UPPER/ADJACENT VAGINA Colposcopy w/ Bx CONIZATION CERVIX W/WO D&C RPR ELTRD EXC 09/08/05 severe squamous dysplasia with clear margins after leep. CORRECT BUNION,SIMPLE Bunion DENTAL TMJ ARTHROGRAM INCL I DILATION & CURETTAGE DX&/THER NONOBSTETRIC hysteroscopy ENDOMETRIAL BX W/WO ENDOCERVIX BX W/O DILAT SPX 06/10/06 superficial endometrium LIG/TRNSXJ FLP TUBE ABDL/VAG APPR UNI/BI LIGAT,DIV, &/OR EXCISE 2ND VARICOSE VEINS 2012 [place] NEUROPLASTY &/TRANSPOS MEDIAN NRV CARPAL TUNNE Carpal tunnel decomp XCAPSL CTRC RMVL INSJ IO LENS PROSTH W/O ECP Cataract Removal right eye Medications: Current Outpatient Medications Medication Sig losartan (COZAAR) 50 mg tablet Take 50 mg by mouth once daily. cholecalciferol (VITAMIN D3) 1,000 unit tab tablet Take 1,000 Units by mouth once daily. benzonatate (TESSALON PERLE) 100 mg capsule Take 2 capsules by mouth three times daily as needed. fenofibrate nanocrystallized (TRICOR) 145 mg tablet Take 1 tablet by mouth once daily. dilTIAZem CD (CARDIZEM CD, CARTIA XT) 120 mg 24 hr capsule Take 120 mg by mouth once daily. acetaminophen-HYDROcodone (VICODIN) 5-500 mg tablet Take 1 tablet by mouth every 6 hours as needed.1/2 tablet as needed. sertraline (ZOLOFT) 100 mg tablet 100 mg twice daily. (Patient not taking: Reported on 02/04/2022) FENOFIBRATE MICRONIZED ORAL Take by mouth. (Patient not taking: Reported on 09/28/2020 ) Quinapril-Hydrochlorothiazide 20-12.5 mg ORAL per tablet Take one(1) tablet daily. (Patient not taking: ) ZOLOFT 100 MG TAB (Patient not taking: ) WELLBUTRIN SR 200 MG TAB (Patient not taking: ) No current facility-administered medications for this visit. Allergies: Bacitracin, Ciprofloxacin, Flagyl [Metronidazole], Polymyxin [Bacitracin-Polymyxin B], and Neosporin [Jghrdjfg-Tyqdzqmwhh-Lykgohkvw] ROS: General (negative for fatigue, malaise, weight loss/gain) HEENT (negative for headache, earache, recent vision changes, sinus pain, sore throat) Respiratory (no recent shortness of breath, hemoptysis) CV (negative for chest tightness, palpitations) Musculoskeletal (see HPI) Psych (no depression, anxiety) Jake Barbosa MD [facility] History of Present illness Narrative* RT Pierre(R) - 03/01/2022 10:15 AM EDT Radiology Service Progress Note PATIENT NAME: Yaa Benitez DATE OF SERVICE: March 01, 2022 TIME: 10:16 AM PATIENT IDENTITY VERIFICATION COMPLETED USING TWO (2) IDENTIFIERS: Name and Date of confirmedby patient verbally. FALL SCREENING: Has the patient had 2 falls in the last year or 1 fall with injury or currently using an Ambulatory Assistive Device (Walker, Cane, Wheelchair, Crutches, etc.)? No PATIENT GENDER DATA: Female. status: : No status: NO. PATIENT RELEVANT IMPLANT DATA REVIEWED: Yes RADIOLOGY DEPARTMENT: General X-ray: Exam(s) Completed: Lower Extremity X- Ray(s): Ankle, Right and Wt. Bearing PERIPHERAL IV DATA: Not applicable SIGNED BY: RT Pierre(R) March 01, 2022 10:16 AM documented in this encounterProvidence Hospital09-22-2022 NoteHNO ID: [id number] Author: Sarah Rubin Ma Service: ? Author Type: ? Type: Progress Notes Filed: 02/16/2022 1:09 PM Note Text: PT ASSESSMENT - CASTING ROOM Yaa presents for Application of boot. Applied Don Lisa pneumatic aircast walker to Right foot Patient has been instructed in Care and proper application of brace. Patient signed Tara PPA electronically for billing and verbalized understanding. Sarah Scottei [facility]09-22-2022 NoteHNO ID: [id number] Author: Jake Barbosa MD Service: ? Author Type: Physician Type: Progress Notes Filed: 02/16/2022 1:09 PM Note Text: Jake Barbosa MD Department of Orthopaedics Orthopaedics [address] [facility] [address] Dept: [phone] Dept February 04, 2022 CHIEF COMPLAINT: New and Fracture of the Right Ankle HPI Patient here today for right ankle fracture. States she was walking on an uneven sidewalk outside the [facility] and twisted the ankle. She immediately was not able to bear any weight. She was taken by EMS to [facility]. She arrives in a splint today. She has been taking hydrocodone only at bedtime. ASSESSMENT: S82.839A Avulsion fracture of distal fibula (primary encounter diagnosis) PLAN: We will get repeat films in another 3 to 4 weeks.We talked about treatment options and this looks like a stable ankle fracture. We will get her into a walker boot. She can weight-bear as tolerated in the boot. FOLLOW UP INSTRUCTIONS: As above Ms. Yaa Benitez was advised as to contrast therapies and/or to take analgesics/anti-inflammatories as needed and all contraindications were reviewed. OBJECTIVE: Ms. Yaa Benitez is a pleasant 71 year old in no apparent distress. Gen:There were no vitals taken for this visit. nl development, non obese, no deformities ENT: Normocephalic, normal hearing, moist mucosa CV: Pulses:DP/PT= 2+ and symmetric, capillary refill < 2 secs, no peripheral edema/varicosities Skin: no rash, bruising or lesions. Good turgor. Psych: cooperative and appropriate, alert and oriented x 3, good mood and affect. Musculoskeletal: Mild and appropriate swelling on the lateral ankle. Resolving ecchymoses. Tender to palpation at the distal fibula. No pain at the knee with good range of motion and no swelling. IMAGIN views of the right ankle from an outside facility show a Jacobson a distal fibula fracture with intact mortise. Supporting Subjective Information Below: Past Medical History: PAST MEDICAL HISTORY Diagnosis Date Adjustment disorder with depressed mood DEPRESSION Disorder of bone and cartilage, unspecified Dysplasia of cervix, unspecified 09/08/05 severe dysplasia Essential hypertension, benign Other and unspecified hyperlipidemia ELEVATED LIPIDS Postmenopausal bleeding 06/10/06 SVT (supraventricular tachycardia) ([facility] Past Surgical History: PAST SURGICAL HISTORY Procedure Laterality Date COLONOSCOPY FLX DX W/COLLJ SPEC WHEN PFRMD 05/2007 Colonoscopy COLONOSCOPY FLX DX W/COLLJ SPEC WHEN PFRMD 07/26/2016 Colonoscopy COLPOSCOPY CERVIX UPPER/ADJACENT VAGINA Colposcopy w/ Bx CONIZATION CERVIX W/WO DANDC RPR ELTRD EXC 09/08/05 severe squamous dysplasia with clear margins after leep. CORRECT BUNION,SIMPLE Bunion DENTAL TMJ ARTHROGRAM INCL I DILATION AND CURETTAGE DXAND/THER NONOBSTETRIC hysteroscopy ENDOMETRIAL BX W/WO ENDOCERVIX BX W/O DILAT SPX 06/10/06 superficial endometrium LIG/TRNSXJ FLP TUBE ABDL/VAG APPR UNI/BI LIGAT,DIV, AND/OR EXCISE 2ND VARICOSE VEINS 2012 [place] NEUROPLASTY AND/TRANSPOS MEDIAN NRV CARPAL TUNNE Carpal tunnel decomp XCAPSL CTRC RMVL INSJ IO LENS PROSTH W/O ECP Cataract Removal right eye Family History: FAMILY HISTORY Problem Relation Age of Onset Hypertension Mother Stroke Mother Heart Father Diabetes Daughter Social History: Social History Tobacco Use Smoking status: Never Smokeless tobacco: Never Vaping Use Vaping Use: Never used Substance Use Topics Alcohol use: No Drug use: No Medications: Current Outpatient Medications Medication Sig losartan (COZAAR) 50 mg tablet Take 50 mg by mouth once daily. cholecalciferol (VITAMIN D) 1,000 unit tab tablet Take 1,000 Units by mouth once daily. dilTIAZem CD (CARDIZEM CD, CARTIA XT) 120 mg 24 hr capsule Take 120 mg by mouth once daily. acetaminophen-HYDROcodone (VICODIN) 5-500 mg tablet Take 1 tablet by mouth every 6 hours as needed. 1/2 tablet as needed. benzonatate (TESSALON PERLE) 100 mg capsule Take 2 capsules by mouth three times daily as needed. fenofibrate nanocrystallized (TRICOR) 145 mg tablet Take 1 tablet by mouth once daily. sertraline (ZOLOFT) 100 mg tablet 100 mg twice daily. (Patient not taking: Reported on 02/04/2022) FENOFIBRATE MICRONIZED ORAL Take by mouth. (Patient not taking: Reported on 09/28/2020 ) Quinapril-Hydrochlorothiazide 20-12.5 mg ORAL per tablet Take one(1) tablet daily. (Patient not taking: ) ZOLOFT 100 MG TAB (Patient not taking: ) WELLBUTRIN SR 200 MG TAB (Patient not taking: ) No current facility-administered medications for this visit. Allergies: Bacitracin, Ciprofloxacin, Flagyl [Metronidazole], Polymyxin [Bacitracin-Polymyxin B], and Neosporin [Jhtynank-Fbklesance-Anjvswkiw] ROS: General (negative for fatigue, malaise, weight loss/gain) HEENT (negative for headache, earache, recent vision changes, sinus pain, sor (more content not included)...[facility]09-22-2022 History of Present illness Narrative* Sarah Rubin Ma - 02/04/2022 5:06 PM EDT PT ASSESSMENT - CASTING ROOM Yaa presents for Application of boot. Applied Yimi Gonzalez pneumatic aircast walker to Right foot Patient has been instructed in Care and proper application of brace. Patient signed Tara FINNEY electronically for billing and verbalized understanding. Sarah Rubin Ma * Jake Barbosa MD - 02/04/2022 4:07 PM EDT Jake Barbosa MD Department of Orthopaedics Orthopaedics [facility] [address] [facility] [address] Dept: [phone] Dept February 04, 2022 CHIEF COMPLAINT: New and Fracture of the Right Ankle HPI Patient here today for right ankle fracture. States she was walking on an uneven sidewalk outside the [facility] and twisted the ankle. She immediately was not able to bear any weight. She was taken byEMS to [facility]. She arrives in a splint today. She has been taking hydrocodone only at bedtime. ASSESSMENT: S82.839A Avulsion fracture of distal fibula (primary encounter diagnosis) PLAN: We will get repeat films in another 3 to 4 weeks.We talked about treatment options and this looks like a stable ankle fracture. We will get her into a walker boot. She can weight-bear as tolerated inthe boot. FOLLOW UP INSTRUCTIONS: As above Ms. Yaa Benitez was advised as to contrast therapies and/or to take analgesics/anti-inflammatoriesas needed and all contraindications were reviewed. OBJECTIVE: Ms. Yaa Benitez is a pleasant 71 year old in no apparent distress. Gen:There were no vitals taken for this visit. nl development, non obese, no deformities ENT: Normocephalic, normal hearing, moist mucosa CV: Pulses:DP/PT= 2+ and symmetric, capillary refill < 2 secs, no peripheral edema/varicosities Skin: no rash, bruising or lesions. Good turgor. Psych: cooperative and appropriate, alert and oriented x 3, good mood and affect. Musculoskeletal: Mild and appropriate swelling on the lateral ankle. Resolving ecchymoses. Tender to palpation at the distal fibula. No pain at the knee with good range of motion and no swelling. IMAGIN views of the right ankle from an outside facility show a Jacobson a distal fibula fracture with intact mortise. Supporting Subjective Information Below: Past Medical History: PAST MEDICAL HISTORY Diagnosis Date Adjustment disorder with depressed mood DEPRESSION Disorder of bone and cartilage, unspecified Dysplasia of cervix, unspecified 09/08/05 severe dysplasia Essential hypertension, benign Other and unspecified hyperlipidemia ELEVATED LIPIDS Postmenopausal bleeding 06/10/06 SVT (supraventricular tachycardia) (HCC) Past Surgical History: PAST SURGICAL HISTORY Procedure Laterality Date COLONOSCOPY FLX DX W/COLLJ SPEC WHEN PFRMD 05/2007 Colonoscopy COLONOSCOPY FLX DX W/COLLJ SPEC WHEN PFRMD 07/26/2016 Colonoscopy COLPOSCOPY CERVIX UPPER/ADJACENT VAGINA Colposcopy w/ Bx CONIZATION CERVIX W/WO D&C RPR ELTRD EXC 09/08/05 severe squamous dysplasia with clear margins after leep. CORRECT BUNION,SIMPLE Bunion DENTAL TMJ ARTHROGRAM INCL I DILATION & CURETTAGE DX&/THER NONOBSTETRIC hysteroscopy ENDOMETRIAL BX W/WO ENDOCERVIX BX W/O DILAT SPX 06/10/06 superficial endometrium LIG/TRNSXJ FLP TUBE ABDL/VAG APPR UNI/BI LIGAT,DIV, &/OR EXCISE 2ND VARICOSE VEINS 2012 [place] NEUROPLASTY &/TRANSPOS MEDIAN NRV CARPAL TUNNE Carpal tunnel decomp XCAPSL CTRC RMVL INSJ IO LENS PROSTH W/O ECP Cataract Removal right eye Family History: FAMILY HISTORY Problem Relation Age of Onset Hypertension Mother Stroke Mother Heart Father Diabetes Daughter Social History: Social History Tobacco Use Smoking status: Never Smokeless tobacco: Never Vaping Use Vaping Use: Never used Substance Use Topics Alcohol use: No Drug use: No Medications: Current Outpatient Medications Medication Sig losartan (COZAAR) 50 mg tablet Take 50 mg by mouth once daily. cholecalciferol (VITAMIN D) 1,000 unit tab tablet Take 1,000 Units by mouth once daily. dilTIAZem CD (CARDIZEM CD, CARTIA XT) 120 mg 24 hr capsule Take 120 mg by mouth once daily. acetaminophen-HYDROcodone (VICODIN) 5-500 mg tablet Take 1 tablet by mouth every 6 hours as needed.1/2 tablet as needed. benzonatate (TESSALON PERLE) 100 mg capsule Take 2 capsules by mouth three times daily as needed. fenofibrate nanocrystallized (TRICOR) 145 mg tablet Take 1 tablet by mouth once daily. sertraline (ZOLOFT) 100 mg tablet 100 mg twice daily. (Patient not taking: Reported on 02/04/2022) FENOFIBRATE MICRONIZED ORAL Take by mouth. (Patient not taking: Reported on 09/28/2020 ) Quinapril-Hydrochlorothiazide 20-12.5 mg ORAL per tablet Take one(1) tablet daily. (Patient not taking: ) ZOLOFT 100 MG TAB (Patient not taking: ) WELLBUTRIN SR 200 MG TAB (Patient not taking: ) No current facility-administered medications for this visit. Allergies: Bacitracin, Ciprofloxacin, Flagyl [Metronidazole], Polymyxin [Bacitracin-Polymyxin B], and Neosporin [Txlknipw-Lvqjtwlyqo-Gqdtaaibb] ROS: General (negative for fatigue, malaise, weight loss/gain) HEENT (negative for headache, earache, recent vision changes, sinus pain, sore throat) Respiratory (no recent shortness of breath, hemoptysis) CV (negative for chest tightness, palpitations) Musculoskeletal (see HPI) Psych (no depression, anxiety) REFERRING PHYSICIAN: Ms. Yaa Benitez was referred to me for consultation by the following physician. This consultation note will be sent to the following physician by either mail or electronic medical record. SELF Emily Perry MD [address] [facility] [id number] Jake Barbosa MD documented in this encounterProvidence Hospital09-15-2022 Miscellaneous Notes* Telephone Encounter - Sintia Elizondo Ma - 01/28/2022 2:41 PM EDT Noted. Thanks. * Telephone Encounter - Jamia Monae - 01/28/2022 9:26 AM EDT Pt fell on sidewalk at [place] 01/28/22. Went to [facility] ER for broken ankle. Scheduled for a 02/03/22 appt documented in this encounterProvidence Hospital07-17-2021 History of Present illness Narrative* Michelle Potter RT(R) - 11/29/2020 12:00 PM EDT Radiology Service Progress Note PATIENT NAME: Yaa Benitez DATE OF SERVICE: November 29, 2020 TIME: 12:12 PM PATIENT IDENTITY VERIFICATION COMPLETED USING TWO (2) IDENTIFIERS: Name and Date of confirmedby patient verbally. FALL SCREENING: Has the patient had 2 falls in the last year or 1 fall with injury or currently using an Ambulatory Assistive Device (Walker, Cane, Wheelchair, Crutches, etc.)? No PATIENT GENDER DATA: Female. status: : No status: NO. PATIENT RELEVANT IMPLANT DATA REVIEWED: Not Applicable RADIOLOGY DEPARTMENT: General X-ray: Exam(s) Completed: Chest X-Ray PERIPHERAL IV DATA: Not applicable SIGNED BY: RT Emely(R) November 29, 2020 12:12 PM [facility] noteNo assessment information availableWMercy Memorial Hospital Work Phone: Evaluation note* Diagnosis Onset Date Resolution Status Sinus headache acute Tension headache acute Aortic coarctation chronic Essential hypertension chron ic Hyperlipidemia chronic SVT (supraventricular tachycardia) chronic Atrophic vaginitis acute Lichen sclerosus acute Encounter for routine gynecological examination noneactive [facility] Work Phone: evaluation note* Diagnosis Avulsion fracture of distal fibula- Primary Unspecified closed fracture of ankle documented in this encounter [facility] note* Diagnosis Avulsion fracture of distal fibula- Primary Unspecified closed fracture of ankle documented in this encounter [facility] note* Diagnosis Avulsion fracture of distal fibula Unspecified closed fracture of ankle documented in this encounter [facility] note* Diagnosis Avulsion fracture of distal fibula- Primary Unspecified closed fracture of ankle documented in this encounter [facility] note* Diagnosis Chronic pain of left knee- Primary Pain in joint, lower leg Primary osteoarthritis of left knee Primary localized osteoarthrosis, lower leg documented in this encounter [facility] note* Diagnosis Onset Date Resolution Status Essential hypertension chron ic Hyperlipidemia chronic SVT (supraventricular tachycardia) chronic [facility] Work Phone: Reason for referral (narrative)* Diagnostic Procedure Only (Routine) - Pending Review Specialty Diagnoses / Procedures Referred By Contac t Referred To Contact XR IMAGING Diagnoses Avulsion fracture of distal fibula Procedures XR ANKLE GENERAL 3V AP/LAT/OBL RIGHT RADEX ANKLE COMPLETE MINIMUM 3 VIEWS Jake Barbosa MD [address] [place] [address] Xr Imaging Referral ID Status Reason Start Date Expiration Date Visits Requested Visits Authorized [id number] Pending Review Auto-Generat ed Referral 03/24/2023 1 1 [facility] for referral (narrative)* Diagnostic Procedure Only (Routine) - Closed Specialty Diagnoses / Procedures Referred By Contac t Referred To Contact XR IMAGING Diagnoses Avulsion fracture of distal fibula Procedures XR ANKLE GENERAL 3V AP/LAT/OBL RIGHT RADEX ANKLE COMPLETE MINIMUM 3 VIEWS Jake Barbosa MD [address] [place] [address] Xr Imaging Referral ID Status Reason Start Date Expiration Date V isits Requested Visits Authorized [id number] Closed Auto-Generate d Referral 02/22/2022 03/24/2023 1 1 [facility] for referral (narrative)No reason for referral information availableWMercy Memorial Hospital Work Phone: Reason for visit Narrative* Diagnostic Procedure Only (Routine) - Closed Specialty Diagnoses / Procedures Referred By Contac t Referred To Contact XR IMAGING Diagnoses Avulsion fracture of distal fibula Procedures XR ANKLE GENERAL 3V AP/LAT/OBL RIGHT RADEX ANKLE COMPLETE MINIMUM 3 VIEWS Jake Barbosa MD [address] [place] [address] Xr Imaging Referral ID Status Reason Start Date Expiration Date V isits Requested Visits Authorized [id number] Closed Auto-Generate d Referral 02/22/2022 03/24/2023 1 1 [facility] Summary [facility] Family History No Family History Records Found Relationship Condition Age at Onset Recorded Date/T martínez mother Cerebrovascular accident (CVA) Unknown Myocardial infarction Unknown brother Coronary artery disease Unknown father Coronary artery disease Unknown Advance Directives No Advanced Directives Records Found Advance Directive Response Recorded Date/ Time Advance Directives Yes March 8:06am Living Will Yes September 20, 2021 3: 59pm Power of Size Changer Yes September 20, 2021 3:59pm Advance Directive Response Recorded Date/ Time Name of Medical Power of Size Changer Sushant Francisco Javier September 20, 2021 3:59pm Advance Directives Yes March 8:06am Living Will Yes September 20, 2021 3: 59pm Power of Size Changer Yes September 20, 2021 3:59pm Advance Directive Response Recorded Date/ Time Advance Directives Yes March 8:06am Living Will No January 27, 2022 7:17pm Power of Size Changer No January 7:17pm Advance Directive Response Recorded Date/ Time Living Will No January 27, 2022 7:17pm Power of Size Changer No January 7:17pm Advance Directives Yes March 8:06am Advance Directive Response Recorded Date/ Time Advance Directives Yes March 8:06am Hospital Course Note Send Summary: Discharge Summ joel Providers: Provider RoleProvider Name Zane Cooper Hannah E AttendingDietz, David Note Recipients: Marcelino Calero MD Discharge: Summary: Admission Date: .02-Nov-2018 05:49:00 Discharge Date: 07-Nov-2018 Attending Physician at Discharge: Marcelino Calero Admission Reason: Diverticulitis Final Discharge Diagnoses: Diverticulitis of intestine without perforation or abscess without bleeding Procedures: Date: 02-Nov-2018 11:16:00 Procedure Name: Open sigmoid Colectomy Condition at Discharge: Satisfactory Disposition at Discharge: .Home Vital Signs: T PRBPSpO2 [id number]/8596% Date/Time11/07 7: 7: 7: 7: 7:23 Range(36.8C - 37.3C ) (87 - 102 ) (16 - 18 ) (116 - 129 )/ (75 - 85 ) (90% - 96% ) Highest temp of 37.3 C was recorded at 11/06 15:51 Physical Exam: Physical Exam: Constitutional: NAD, laying in bed Eyes: EOMI, non icteric Respiratory/Thorax: non labored breathing on RA Cardiovascular: RR Gastrointestina (more content not included)... Note Post Operative Note: PreOp D iagnosis: Diverticulitis Post-Procedure Diagnosis: Diverticulitis Procedure: Open sigmoid Colectomy Surgeon: Nicolas Resident/Fellow/Other Process Eng: Manolo Anesthesia: GETA Estimated Blood Loss (mL): 20 Specimen: yes Complications: none Findings: Sigmoid colon with evidence of chronic diverticular inflammation Patient Returned To/Condition: PACU to floor Drains and/or Catheters: Gonzales catheter LLQ DIPESH drain Signature/Cosignature/Attestation: Note Completion: Attending AttestationI was present for the entire procedure Electronic Signatures: Marcelino Calero) (Signed 02-Nov-2018 17:41) Authored: Signature/Cosignature/Attestation Co-Signer: Post Operative Note, Signature/Cosignature/Attestation Nura French (Resident)) (Signed 02-Nov-2018 11:18) Authored: Post Operative Note, Signature/Cosignature/Attestation Last Updated: 02-Nov-2018 17:41 by Marcelino Calero) Procedure Findings Note Post Operative Note: PreOp D iagnosis: Diverticulitis Post-Procedure Diagnosis: Diverticulitis Procedure: Open sigmoid Colectomy Surgeon: Nicolas Resident/Fellow/Other Process Eng: Manolo Anesthesia: GETA Estimated Blood Loss (mL): 20 Specimen: yes Complications: none Findings: Sigmoid colon with evidence of chronic diverticular inflammation Patient Returned To/Condition: PACU to floor Drains and/or Catheters: Gonzales catheter LLQ DIPESH drain Signature/Cosignature/Attestation: Note Completion: Attending AttestationI was present for the entire procedure Electronic Signatures: Marcelino Calero) (Signed 02-Nov-2018 17:41) Authored: Signature/Cosignature/Attestation Co-Signer: Post Operative Note, Signature/Cosignature/Attestation Nura French (Resident)) (Signed 02-Nov-2018 11:18) Authored: Post Operative Note, Signature/Cosignature/Attestation Last Updated: 02-Nov-2018 17:41 by Marcelino aClero) Chief Complaint and Reason for Visit Chief Complaint HYPERTENSION right arm injury Chief Complaint right arm injury 5 M FU 6 M FU Annual (GARBAGE MAN) SCREENING Reason for Visit Sinus headache Tension headache Aortic coarctation Essential hypertension Hyperlipidemia SVT (supraventricular tachycardia) Atrophic vaginitis Lichen sclerosus Encounter for routine gynecological examination Chief Complaint right arm injury 5 M FU 6 M FU Annual (GARBAGE MAN) SCREENING E ORDER Reason for Visit Sinus headache Tension headache Aortic coarctation Essential hypertension Hyperlipidemia SVT (supraventricular tachycardia) Atrophic vaginitis Lichen sclerosus Encounter for routine gynecological examination Chief Complaint 6 M FU E-ORDER Reason for Visit Essential hypertensi on Hyperlipidemia SVT (supraventricular tachycardia) Chief Complaint Admit Date LEFT HIP April 10, 2024 10:10am RM 1 April 10, 2024 10:20am 6 M FU April 11, 2024 12:57pm PN IN L HIP/RX HERE April 18, 2024 1 1:07am OSTEO July 10, 2024 1:39pm Reason for Visit Admit Date Greater trochanteric bursitis of left hi p April 10, 2024 10:10am Left hip pain April 10, 2024 10:10am Essential hypertension April 11 12:57pm Hyperlipidemia April 11, 2024 12:57pm SVT (supraventricular tachycardia) Novem 2023 12:57pm Chief Complaint Admit Date OSTEO July 10, 2024 1:39pm Additional Source Comments INFORMATION SOURCE (unrecogn ized section and content) DATE CREATED AUTHOR 01/31/2018 [employer] ([place]) DATE CREATED AUTHOR AUTHOR'S ORGANIZ ATION 11/24/2018 [employer] DATE CREATED AUTHOR AUTHOR'S ORGANIZ ATION 01/08/2019 [facility] DATE CREATED AUTHOR AUTHOR'S ORGANIZ ATION 04/19/2022 [facility] DATE CREATED AUTHOR AUTHOR'S ORGANIZ ATION 08/25/2024 [facility] Goals (unrecognized section and content) Goals may be documented in a n alternate sectionGoals may be documented in an alternate sectionGoals may be documented in an alternate sectionGoals may be documented in an alternate sectionGoals may be documented in an alternate sectionGoals may be documented in an alternate sectionGoals may be documented in an alternate sectionGoals may be documented in an alternate section Source Comments (unrecognize d section and content) In the event this informatio n is protected by the Federal Confidentiality of Alcohol and Drug Abuse Patient Records regulations: The Federal rules restrict any use of the information to criminally investigate or prosecute any alcohol or drug abuse patient.[facility] the event this information is protected by the Federal Confidentiality of Alcohol and Drug Abuse Patient Records regulations: The Federal rules restrict any use of the information to criminally investigate or prosecute any alcohol or drug abuse patient.[facility] Hospital[facility] the event this information is protected by the Federal Confidentiality of Alcohol and Drug Abuse Patient Records regulations: The Federal rules restrict any use of the information to criminally investigate or prosecute any alcohol or drug abuse patient.[facility] the event this information is protected by the Federal Confidentiality of Alcohol and Drug Abuse Patient Records regulations: The Federal rules restrict any use of the information to criminally investigate or prosecute any alcohol or drug abuse patient.[facility] HospitalIn the event this information is protected by the Federal Confidentiality of Alcohol and Drug Abuse Patient Records regulations: The Federal rules restrict any use of the information to criminally investigate or prosecute any alcohol or drug abuse patient.[facility] Hospital[facility] the event this information is protected by the Federal Confidentiality of Alcohol and Drug Abuse Patient Records regulations: The Federal rules restrict any use of the information to criminally investigate or prosecute any alcohol or drug abuse patient.[facility] Hospital[facility] the event this information is protected by the Federal Confidentiality of Alcohol and Drug Abuse Patient Records regulations: The Federal rules restrict any use of the information to criminally investigate or prosecute any alcohol or drug abuse patient.[facility] Reason for Visit (unrecogniz ed section and content) Reason Comments Patient Update Reason Comments New Fracture Reason Comments Established Patient Follow Up Reason Comments Established Patient Knee Pain Last seen 03/01/22 Right distal fibula f racture Care Teams (unrecognized sec tion and content) Rag Collector Relationship Specialty Start Date End Date Emily Perry [address] [place] [address] PCP - General Family Practice 11/29/20 Rag Collector Relationship Specialty Start Date End Date Emily Perry [address] [place] [address] PCP - General Family Medicine 11/29/20 Rag Collector Relationship Specialty Start Date End Date Emily Perry [address] [place] [address] PCP - General Family Medicine 11/29/20 Rag Collector Relationship Specialty Start Date End Date Emily Perry [address] [place] [address] PCP - General Family Medicine 11/29/20 Rag Collector Relationship Specialty Start Date End Date Vicky Emily Trudy [address] [place], [place] [id number] PCP - General Family Medicine 11/29/20 Rag Collector Relationship Specialty Start Date End Date ArshEmily washing[place] Trudy [address] [place] [address] PCP - General Family Medicine 11/29/20 Team Status: Active Member Role Status Dates Dr. Emily Perry MD Family Provider Active Dr. Emily Perry MD Primary Care Provider Active Team Status: Inactive Member Role Status Dates Dr. Emily Perry MD Primary Care Provider, Referrin g Provider Active Dr. Darron Pruitt MD Attending Provider Active Team Status: Inactive Member Role Status Dates Dr. Emily Perry MD Primary Care Provider Active Dr. Darron Pruitt MD Attending Provider, Referring Pro vider Active Team Status: Inactive Member Role Status Dates Dr. Emily Perry MD Primary Care Prov ider, Attending Provider, Referring Provider Active Rag Collector Relationship Specialty Start Date End Date Emily Perry MD [address] [place], [place] [id number] PCP - General Family Medicine 11/29/20 Team Status: Active Member Role Status Dates Marvel Tirado VSC, SCREEN MAKING SUPERVISOR-C Primary Care Provider Active Team Status: Inactive Member Role Status Dates No Primary Care Physician Primary Care Provider Active Start: April 03, 2024 End: April 03, 2024 Shanna Alarcon SCREEN MAKING SUPERVISOR, SCREEN MAKING SUPERVISOR-C Attending Provider Active Start: April 03, 2024 End: April 03, 2024 Shanna Alarcon SCREEN MAKING SUPERVISOR, SCREEN MAKING SUPERVISOR-C Referring Provider Active Start: April 03, 2024 End: April 03, 2024 Team Status: Inactive Member Role Status Dates No Primary Care Physician Primary Care Provider Active Start: April 10, 2024 End: April 10, 2024 No Primary Care Physician Referring Provider Active Start: April 10, 2024 End: April 10, 2024 Skyler Herman MD Attending Provider Active St art: April 10, 2024 End: April 10, 2024 Team Status: Inactive Member Role Status Dates No Primary Care Physician Primary Care Provider Active Start: April 10, 2024 End: April 10, 2024 Dr. Darron Pruitt MD Attending Provider Active S tart: April 10, 2024 End: April 10, 2024 Team Status: Inactive Member Role Status Dates Amadeo Zambrano SCREEN MAKING SUPERVISOR, SCREEN MAKING SUPERVISOR-C Attending Provider Active S tart: April 11, 2024 End: April 11, 2024 No Primary Care Physician Primary Care Provider Active Start: April 11, 2024 End: April 11, 2024 No Primary Care Physician Referring Provider Active Start: April 11, 2024 End: April 11, 2024 Team Status: Inactive Member Role Status Dates No Primary Care Physician Primary Care Provider Active Start: April 18, 2024 End: April 18, 2024 Skyler Herman MD Attending Provider Active St art: April 18, 2024 End: April 18, 2024 Skyler Herman MD Referring Provider Active St art: April 18, 2024 End: April 18, 2024 Team Status: Inactive Member Role Status Dates No Primary Care Physician Primary Care Provider Active Start: May 24, 2024 End: May 24, 2024 Zebulun Beam VSC, SCREEN MAKING SUPERVISOR-C Attending Provider Active Start: May 24, 2024 End: May 24, 2024 Zebulun Beam VSC, SCREEN MAKING SUPERVISOR-C Referring Provider Active Start: May 24, 2024 End: May 24, 2024 Team Status: Inactive Member Role Status Dates Zebulun Beam VSC, SCREEN MAKING SUPERVISOR-C Primary Care Provider Active Start: July 10, 2024 End: July 10, 2024 Zebulun Beam VSC, SCREEN MAKING SUPERVISOR-C Attending Provider Active Start: July 10, 2024 End: July 10, 2024 Zebulun Beam VSC, SCREEN MAKING SUPERVISOR-C Referring Provider Active Start: July 10, 2024 End: July 10, 2024 Team Status: Active Member Role Status Dates Zebulun Beam VSC, SCREEN MAKING SUPERVISOR-C Primary Care Provider Active Start: July 18, 2024 Zebulun Beam VSC, SCREEN MAKING SUPERVISOR-C Attending Provider Active Start: July 18, 2024 Team Status: Inactive Member Role Status Dates Zebulun Beam VSC, SCREEN MAKING SUPERVISOR-C Primary Care Provider Active Start: July 18, 2024 End: July 18, 2024 Zebulun Beam VSC, SCREEN MAKING SUPERVISOR-C Attending Provider Active Start: July 18, 2024 End: July 18, 2024 Team Status: Inactive Member Role Status Dates Zebulun Beam VSC, SCREEN MAKING SUPERVISOR-C Primary Care Provider Active Start: August 20, 2024 End: August 20, 2024 Zebulun Beam VSC, SCREEN MAKING SUPERVISOR-C Attending Provider Active Start: August 20, 2024 End: August 20, 2024 Zebulun Beam VSC, SCREEN MAKING SUPERVISOR-C Referring Provider Active Start: August 20, 2024 End: August 20, 2024 FOR RECORDS PERTAINING TO PATIENTS WHO ARE OR HAVE BEEN ENROLLED IN A CHEMICAL DEPENDENCY/SUBSTANCEABUSE PROGRAM, SOME INFORMATION MAY BE OMITTED. This clinical summary was aggregated from multiple sources. Caution should be exercised in using it in the provision of clinical care. This summary normalizes information from multiple sources, and as a consequence, information in this document may materially change the coding, format and clinical context of patient data. In addition, data may be omitted in some cases. CLINICAL DECISIONS SHOULD BE BASED ON THE PRIMARY CLINICAL RECORDS. [employer] provides no warranty or guarantee of the accuracy or completeness of information in this document.
== END | disposition home or self-care (01) ==
LOC: VSLAB 15:00
DX: N18.9 Chronic kidney disease, unspecified (principal)
CPT/HCPCS: 36415; 80053; 82043; 82570; 85025

== ENCOUNTER → 2025-05-13 | Outpatient (CLI) | payer MEDICARE, SELFPAY ==
--- NOTE | 2025-05-13 15:31 | MRI_ITS ---
PROCEDURE: UPPER EXT JOINT ONLY(ROUTINE) 05/13/2025 REASON FOR EXAM: PAIN, EVAL CUFF TEAR TECHNIQUE: Procedure Code: MRIUEJ Modality: MR Procedure: UPPER EXT JOINT ONLY(ROUTINE) Multiplanar and multisequence images were obtained without IV contrast administration. COMPARISON: COMPARISON: FINDINGS: Rotator cuff: [id number] atrophy of the supraspinatus muscle. Slight fatty replacement in the infraspinatus muscle. Rotator cuff tendinosis, and a full or nearly full-thickness anterior supraspinatus tendon insertion tear measuring 9 mm in maximal cross-sectional dimension, with milder deep margin partial tearing posterior to the full-thickness component, as well as interstitial longitudinal partial tearing of the distal infraspinatus tendon. Thinning and fraying along the deep margin of the distal subscapularis tendon. No long biceps tendon tear, subluxation, retraction or tenosynovitis. Labrum: No anterior labral tear. No inferior labral tear. Undermining of the superior chondral labral junction, extending more mildly to the posterior labrum. No definite paralabral cyst. Bones and soft tissues: Subacromial/subdeltoid bursitis. Type 1 acromion. No coracoclavicular ligament tear. Severe AC joint arthrosis. Marginal osseous ridging about the glenohumeral joint, with chondral thinning and areas to bone along both surfaces, compatible with arthrosis. Glenohumeral joint effusion. Degenerative signal changes in the anterior and posterior humeral head. MRI/Upper Ext Joint Only(Routine) IMPRESSION: 9 mm full or nearly full-thickness anterior supraspinatus tendon insertion tear , with milder deep margin partial tearing posterior to the full-thickness component. Interstitial longitudinal partial tearing of the distal infraspinatus tendon. Thinning and fraying of the deep margin of the distal subscapularis tendon. Undermining of the superior chondral labral junction, extending more mildly to the posterior labrum. Glenohumeral joint arthrosis and effusion with marginal osseous ridging and cho ndral degeneration. Severe AC joint arthrosis. Subacromial/subdeltoid bursitis. Reading Location: [facility]
--- OUTSIDE RECORDS SUMMARY | 2025-05-13 20:10 | XMS RPT_ITS | CCD ---
Author Organization [facility] CliniSywy Care Team Providers Care Education Teacher Name Role Phone Jeni BLANTON, Denise Sahni Unavailable Unavailable Leslie Wells Unavailable Unavailable Denise Ngo RN Unavailable Unavailable DEEDEE OLIVER JR. Unavailable Unavailable DEEDEE OLIVER JR. Unavailable Unavailable Leslie Wells Unavailable Unavailable Dr. Emily Perry Primary Care Provider [phone] Dr. Darron Pruitt Attending Provider Dr. Emily Perry Primary Care Provider Dr. Emily Perry Referring Provider [phone] Stacy MARKETING COMPLIANCE MANAGER, MARKETING COMPLIANCE MANAGER-C Daisy Attending Provider Juan Manuel MARKETING COMPLIANCE MANAGER, MARKETING COMPLIANCE MANAGER-C Amadeo Arreguin Attending Provider Keerthi MARKETING COMPLIANCE MANAGER, MARKETING COMPLIANCE MANAGER-Babak Shin Attending Provider Emily Perry Primary Care Provider [phone] Emily Perry Primary Care Provider [phone] EMILY PERRY Primary Care UnavailJAKE Eubanks Referring Unavailable JAKE BARBOSA Attending Unavailable EMILY PERRY Primary Care Unavailabl JAKE Quiñones Referring Unavailable EMILY PERRY Primary Care Unavailabl JAKE Quiñones Attending Unavailable EMILY PERRY Primary Care UnavailJAKE Eubanks Attending Unavailable Emily Perry Primary Care Provider Dr. Emily Perry Primary Care Provider Dr. Emily Perry Referring Provider [phone] Darron Pruitt Attending Provider Emily Perry MD Primary Care Provider Care Physician, No Primary Primary Care Provider Unavailable Dorian ABDUL-C, Shanna Attending Provider Dorian MARKETING COMPLIANCE MANAGER-C, Shanna Referring Provider Care Physician, No Primary Referring Provider Un available Skyler Herman MD Attending Provider Dr. Darron Pruitt MD Attending Provider JuanM anuel MARKETING COMPLIANCE MANAGER-C, Amadeo Arreguin Attending Provider Skyler Herman MD Referring Provider Beam MARKETING COMPLIANCE MANAGER-C, Zebulun Attending Provider Beam MARKETING COMPLIANCE MANAGER-C, Zebulun Referring Provider Beam MARKETING COMPLIANCE MANAGER-C, Zebulun Primary Care Provider Care Physician, No [...] Referring Unavailable Darron Pruitt Attending Unavailable Dorian MARKETING COMPLIANCE MANAGER, Shanna Referring Unavailable Dorian ABDUL, Shanna Attending Unavailable Care Physician, No Primary Primary Care Unava ilable Allergies Allergy Classification Reported Allergen(s) Allergy Type Date of Onset Reaction(s) Facility (16 sources) Bacitracin; Translations: [BACITRACIN] Drug Allergy 9 Rash [facility] (16 sources) Ciprofloxacin; Translations: [CIPROFLOXACIN] Drug Allergy 9 Hives, Swelling [facility] (16 sources) metroNIDAZOLE; Translations: [METRONIDAZOLE] Drug Allergy 9 Hives, Swelling [facility] (8 sources) Neomycin Drug Allergy 2 Rash [facility] (8 sources) Polymyxin B Drug Allergy 2 Rash [facility] (8 sources) bee venom protein (honey bee) Allergy to substance 2 Anaphylaxis [facility] (8 sources) bacitracin / neomycin / polymyxin b; Translations: [NEOMYCIN-BACITRA KATHERIN-POLYMYXIN] Drug Allergy 6 Intolerance [facility] Work Phone: (8 sources) Bacitracin / Polymyxin B; Translations: [BACITRACIN-POLYM YXIN B] Drug Allergy 9 Rash [facility] (1 source) Bacitracin Drug Allergy 4 [facility] Repository (1 source) Ciprofloxacin Drug Allergy 4 [facility] Repository (1 source) metroNIDAZOLE Drug Allergy 4 [facility] Repository (1 source) Neomycin Drug Allergy 4 [facility] Repository (1 source) polymyxin B Drug allergy (disorder) 4 [facility] Repository (1 source) bee venom protein (honey bee) Drug allergy (disorder) 4 [facility] Repository Medications Current Medications Medication Drug Class(es) [...] release oral capsule (20 sources) Calcium Channel Anika Start: 11-16-2023 End: 08-08-2024 take 1 capsule by mouth once daily Diltiazem Hcl 240 mg capsule,extended release 24hr Active 240 mg PO DAILY August 08, 2024 12:01pm Start: 05-25-2016 take 1 tablet by milton th once daily CARDIZEM CD 120 MG [id number] One tablet by mouth daily DILTIAZEM HCL COATED BEADS [id number] Zane Sotelo MD Start: 05-25-2016 take 1 tablet by milton th once daily CARDIZEM CD 120 MG [id number] One tablet by mouth daily DILTIAZEM HCL COATED BEADS [id number] Zane Sotelo MD Start: 04-25-2016 End: 11-16-2023 [...] Start: 05-25-2016 take 2 tablets by mo [facility] twice daily BUPROPION HCL 100 MG TABS Two tablets by mouth twice daily BUPROPION HCL [id number] Zandra Coates RN Start: 08-10-2005 End: 08-15-2017 [...] mouth twice daily as needed DOCUSATE SODIUM [id number] Shane Gilliam QUANTOMETER OPERATOR-C Start: 04-25-2016 End: 08-15-2017 take 1 capsule [...] One tablet by mouth daily QUINAPRIL-HYDROCHL OROTHIAZIDE [id number] Shane WHATLEY-Babak Start: 05-25-2016 take 1 tablet by milton th once daily ACCURETIC 20-12.5 MG TABS One tablet by mouth daily QUINAPRIL-HYDROCHLOROTHIAZIDE [id number] Zandra Coates RN Start: 05-25-2016 End: 06-07-2016 take 1 tablet by mouth once daily ACCURETIC 20-12.5 MG TABS One tablet by mouth daily QUINAPRIL-HYDROCHLOROTHIAZIDE [id number] Shane WHATLEY-C Start: 04-23-2016 End: 12-15-2020 take [...] (1 source) Long-term drug therapy; Translations: [Other usp (current) drug therapy] Onset: 02-10-2017 02-10-2017 Unclassified [...] 06-07-2016 Episodic Other aftercare (2 sources) Other terminal operations manager (current) drug therapy; Translations: [Other terminal operations manager (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 Sotelo [facility] Unclassified (4 sources) Family history of ischemic heart disease and other diseases of the circulatory system; Translations: [Family history of ischemic heart disease and other diseases of the circulatory system] Onset: 06-07-2016 06-07-2016 Episodic Results Test Name Value Interpretation Reference Range Facility Shoulder min 2 Viewson 08-20 Shoulder min 2 Views [facility] Imaging Services [address] [place], [place] [address] Shoulder min 2 Views MR#: [id number] Acct: [id number] Name: YAA BENITEZ Rep #: [id number] : 1950 F 74 From: Wesley Ortiz i, DO PCP: Marvel Tirado Babak MARKETING COMPLIANCE MANAGER-C Status: REG CLI Study: Shoulder min 2 Views Date of Exam: 08/20/24 Exam# [id number] Ordering Dr: Marvel Tirado MARKETING COMPLIANCE MANAGERKaro C PROCEDURE: Right shoulder radiographs, four views [...] acromioclavicular joint. Reading Location: PAULO CC: Marvel [facility] MARKETING COMPLIANCE MANAGER-C Candida Model Making Supervisor: Signed Normal [facility] Anion gap in Serum or Plasma Ordered By: Marvel Tirado on 07-18-2024 Anion gap [Moles/Vol] 13 mmol/L 5-15 [facility] BUN/creatinine ratioOrdered By: Marvel Tirado on 07-18-2024 Urea nitrogen/Creatinine [Mass ratio] 14.2 mg/mg 10- [facility] Basic Metabolic Profile (BMP )on 07-18-2024 BUN/CRE 14.2 RATIO Normal -20 [facility] Comment on above: Performed By: #### L 500.2500 ####[facility] [address] [place], [address] Calcium [Mass/Vol] 9.8 mg/dL Normal 7.6-11.0 [facility] Comment on above: Performed By: #### L 500.2500 ####[facility] [address] [place], [address] Chloride [Moles/Vol] 105 mmol/L Normal 98-108 [facility] Comment on above: Performed By: #### L 500.2500 ####[facility] [address] [place], [address] CO2 [Moles/Vol] 21.2 mmol/L Normal 21.0-32.0 [facility] Comment on above: Performed By: #### L 500.2500 ####[facility] [address] [place], [address] Creatinine [Mass/Vol] 0.99 mg/dL Normal 0.70-1.20 [facility] Comment on above: Performed By: #### L 500.2500 ####[facility] [address] [place], [address] GAP 13 Normal 5-15 [facility] Comment on above: Performed By: #### L 500.2500 ####[facility] [address] [place], [address] GFR/1.73 sq M.predicted among non-blacks MDRD (S/P/Bld) [Vol rate/Area] 59 mL/min/{1.73_m2} Low >60 [facility] Comment on above: Result Comment: mL/m in/1.73m2 CKD-EPI Creatinine Equation (2020) Performed By: #### L 500.2500 ####[facility] [address] [place], [address] Glucose [Mass/Vol] 97 mg/dL Normal 70-99 [facility] Comment on above: Performed By: #### L 500.2500 ####[facility] [address] [place], [address] Potassium [Moles/Vol] 4.8 mmol/L Normal 3.3-5.1 [facility] Comment on above: Performed By: #### L 500.2500 ####[facility] [address] [place], [address] Sodium [Moles/Vol] 139 mmol/L Normal 133-145 [facility] Comment on above: Performed By: #### L 500.2500 ####[facility] [address] [place], [address] Urea nitrogen [Mass/Vol] 14 mg/dL Normal 4-19 [facility] Comment on above: Performed By: #### L 500.2500 ####[facility] [address] [place], [address] Carbon dioxide, total [Moles /volume] in Central venous bloodOrdered By: Marvel Tirado on 07-18-2024 CO2 [Moles/Vol] 21.2 mmol/L 21.0-32.0 [facility] Chloride assayOrdered By: Abram Tirado on 07-18-2024 Chloride [Moles/Vol] 105 mmol/L 98-108 [facility] GFR/1.73 sq M.predicted jorge g non-blacks MDRD (S/P/Bld) [Vol rate/Area]Ordered By: Marvel Tirado on 07-18-2024 Estimated GFR (MDRD) Non-Af Amer 59 Low >60 [facility] Comment on above: mL/min/1.73m2 CKD-EP I Creatinine Equation (2020) Potassium (Unsp spec) [Mass/ Vol]Ordered By: Marvel Tirado on 07-18-2024 Potassium [Moles/Vol] 4.8 mmol/L 3.3-5.1 [facility] Serum creatinine measurement (mass/volume)Ordered By: Marvel Tirado on 07-18-2024 Creatinine [Mass/Vol] 0.99 mg/dL 0.70-1.20 [facility] Serum glucose measurement (m ass/volume)Ordered By: Marvel Tirado on 07-18-2024 Glucose [Mass/Vol] 97 mg/dL 70-99 [facility] Serum or plasma calcium iftikhar urement (mass/volume)Ordered By: Marvel Tirado on 07-18-2024 Calcium [Mass/Vol] 9.8 mg/dL 7.6-11.0 [facility] Serum or plasma urea nitroge n measurement (mass/volume)Ordered By: Marvel Tirado on 07-18-2024 Urea nitrogen [Mass/Vol] 14 mg/dL 4-19 [facility] Sodium levelOrdered By: Sasha Tirado on 07-18-2024 Sodium [Moles/Vol] 139 mmol/L 133-145 [facility] Bone density reportOrdered B y: Teddy Gastelum on 07-10-2024 Study report Skeletal system [facility] Imaging Services [address] [place] [address] Dexa Bone Density Study MR#: [id number] Acct: [id number] Name: YAA BENITEZ Rep #: [id number] : 1950 F 74 From: Terry Gastelum MD PCP: Marvel Tirado [facility] MARKETING COMPLIANCE MANAGER-C Status: REG CLI Study:Dexa Bone Density Study Date of Exam: 07/10/24 Exam# [id number] Ordering Dr: Liam Tirado erin [facility] MARKETING COMPLIANCE MANAGER-C PROCEDURE: DEXA BONE DENSITY STUDY REASON FOR [...] with a moderate fracture risk. Reading Location: [id number] CC: Marvel Babak MARKETING COMPLIANCE MANAGER-Babak Tirado ~ Model Making Supervisor: Signed [facility] Dexa Bone Density Studyon Dexa Bone Density Study [facility] Imaging Services [address] [place], [place] [id number] Dexa Bone Density Study MR#: [id number] Acct: [id number] Name: YAA BENITEZ Rep #: [id number] : 1950 F 74 From: Teddy arroyo MD PCP: Marvel Tirado Babak MARKETING COMPLIANCE MANAGERDave Status: REG CLI Study: Dexa Bone Density Study Date of Exam: 07/10/24 Exam# [id number] Ordering Dr: Marvel Tirado Babak MARKETING COMPLIANCE MANAGERKaro C PROCEDURE: DEXA BONE DENSITY STUDY REASON [...] with a moderate fracture risk. Reading Location: [id number] CC: [facility] MARKETING COMPLIANCE MANAGER-C Beam Model Making Supervisor: Signed Normal [facility] Absolute neutrophil countOrd ered By: Marvel Tirado on 05-24-2024 Neutrophils (Bld) [#/Vol] 4.6 10*3/uL 2.0-7.7 [facility] Albumin to globulin ratioOrd ered By: Abramdanna Tirado on 05-24-2024 Albumin/Globulin [Mass ratio] 0.7 {ratio} Low 0.9-2.4 [facility] Basophil percentageOrdered B y: Marvel Tirado on 05-24-2024 Basophils/100 WBC (Bld) 1.2 % High 0-1 [facility] Bilirubin, totalOrdered By: Marvel Tirado on 05-24-2024 Bilirubin [Mass/Vol] 0.50 mg/dL 0.20-1.00 [facility] Comment on above: For patients on eltr ombopag therapy, use of Dimension [place] TBIL is not recommended. Blood urea nitrogen (BUN)/cr eatinine ratioOrdered By: Marvel Tirado on 05-24-2024 Urea nitrogen/Creatinine [Mass ratio] 13.8 mg/mg 10-20 [facility] CBC W/Diff, Automatedon Absolute Lymph 1.38 X10 3/uL Normal 0.83-4.51 [facility] Comment on above: Performed By: #### L 501.9520, L500.4050, L100.0100 ####[facility] [address] [place], [address] Absolute Neut 4.6 X10 3/uL Normal 2.0-7.7 [facility] Comment on above: Performed By: #### L 501.9520, L500.4050, L100.0100 ####[facility] [address] [place], [address] Basophils/100 WBC (Bld) 1.2 % High 0-1 [facility] Comment on above: Performed By: #### L 501.9520, L500.4050, L100.0100 ####[facility] [address] [place], [address] Eosinophils/100 WBC (Bld) 2.5 % Normal 0-5 [facility] Comment on above: Performed By: #### L 501.9520, L500.4050, L100.0100 ####[facility] [address] [place], [address] Erythrocyte distribution width (RBC) [Ratio] 13.2 % Normal 11.6-14.6 [facility] Comment on above: Performed By: #### L 501.9520, L500.4050, L100.0100 ####[facility] [address] [place], [address] Hematocrit (Bld) [Volume fraction] 47.7 % High 37-47 [facility] Comment on above: Performed By: #### L 501.9520, L500.4050, L100.0100 ####[facility] [address] [place], [address] Hemoglobin (Bld) [Mass/Vol] 15.8 g/dL High 12.0-15.0 [facility] Comment on above: Performed By: #### L 501.9520, L500.4050, L100.0100 ####[facility] [address] [place], [address] IG% 0.900 Normal 0.0-0.9 [facility] Comment on above: Result Comment: IG% - Immature Granulocytes (promyelocytes, myelocytes and metamyelocytes) > 1% indicates that a LEFT SHIFT is Present. Performed By: #### L 501.9520, L500.4050, L100.0100 ####[facility] [address] [place], [address] Lymphocytes/100 WBC (Bld) 20.2 % Normal 19-41 [facility] Comment on above: Performed By: #### L 501.9520, L500.4050, L100.0100 ####[facility] [address] [place], [address] MCH (RBC) [Entitic mass] 31.2 pg Normal 27.0-32.0 [facility] Comment on above: Performed By: #### L 501.9520, L500.4050, L100.0100 ####[facility] [address] [place], [address] MCHC (RBC) [Mass/Vol] 33.1 g/dL Normal 32-36 [facility] Comment on above: Performed By: #### L 501.9520, L500.4050, L100.0100 ####[facility] [address] [place], [address] MCV (RBC) [Entitic vol] 94.1 fL Normal 81-99 [facility] Comment on above: Performed By: #### L 501.9520, L500.4050, L100.0100 ####[facility] [address] [place], [address] Monocytes/100 WBC (Bld) 7.7 % Normal 0-10 [facility] Comment on above: Performed By: #### L 501.9520, L500.4050, L100.0100 ####[facility] [address] [place], [address] Neutrophils/100 WBC (Bld) 67.5 % Normal 47-70 [facility] Comment on above: Performed By: #### L 501.9520, L500.4050, L100.0100 ####[facility] [address] [place], [address] Nucleated RBC (Bld) [#/Vol] 0 10*3/uL Normal 0-5 [facility] Comment on above: Performed By: #### L 501.9520, L500.4050, L100.0100 ####[facility] [address] [place], [address] Platelet mean volume (Bld) [Entitic vol] 9.9 fL Normal 6.2-12.0 [facility] Comment on above: Performed By: #### L 501.9520, L500.4050, L100.0100 ####[facility] [address] [place], [address] Platelets (Bld) [#/Vol] 310 10*3/uL Normal 150-450 [facility] Comment on above: Performed By: #### L 501.9520, L500.4050, L100.0100 ####[facility] [address] [place], [address] RBC (Bld) [#/Vol] 5.07 10*6/uL Normal 4.2-5.4 [facility] Comment on above: Performed By: #### L 501.9520, L500.4050, L100.0100 ####[facility] [address] [place], [address] RDW SD 45.7 fl High 35.1-43.9 [facility] Comment on above: Performed By: #### L 501.9520, L500.4050, L100.0100 ####[facility] [address] [place], [address] WBC (Bld) [#/Vol] 6.8 10*3/uL Normal 4.4-11.0 [facility] Comment on above: Performed By: #### L 501.9520, L500.4050, L100.0100 ####[facility] [address] [place], [address] Carbon dioxide measurementOr dered By: Zebulun Beam on 05-24-2024 CO2 [Moles/Vol] 28.0 mmol/L 21.0-32.0 [facility] Chloride measurementOrdered By: Zebulun Beam on 05-24-2024 Chloride [Moles/Vol] 104 mmol/L 98-107 [facility] Comprehensive Metabolic Prof ilon 05-24-2024 Albumin [Mass/Vol] 3.2 g/dL Normal 3.2-5.0 [facility] Comment on above: Order Comment: TSH Performed By: #### L 501.9520, L500.4050, L100.0100 ####[facility] [address] [place], [address] Albumin/Globulin [Mass ratio] 0.7 {ratio} Low 0.9-2.4 [facility] Comment on above: Order Comment: TSH Performed By: #### L 501.9520, L500.4050, L100.0100 ####[facility] [address] [place], [address] ALK P 78 U/L Normal 45-117 [facility] Comment on above: Order Comment: TSH Performed By: #### L 501.9520, L500.4050, L100.0100 ####[facility] [address] [place], [address] ALT [Catalytic activity/Vol] 18 U/L Normal 13-56 [facility] Comment on above: Order Comment: TSH Performed By: #### L 501.9520, L500.4050, L100.0100 ####[facility] [address] [place], [address] AST [Catalytic activity/Vol] 19 U/L Normal 15-37 [facility] Comment on above: Order Comment: TSH Performed By: #### L 501.9520, L500.4050, L100.0100 ####[facility] [address] [place], [address] Bilirubin [Mass/Vol] 0.50 mg/dL Normal 0.20-1.00 [facility] Comment on above: Order Comment: TSH Result Comment: For patients on eltrombopag therapy, use of Dimension [place] TBIL is not recommended. Performed By: #### L 501.9520, L500.4050, L100.0100 ####[facility] [address] [place], [address] BUN/CRE 13.8 RATIO Normal 10-20 [facility] Comment on above: Order Comment: TSH Performed By: #### L 501.9520, L500.4050, L100.0100 ####[facility] [address] [place], [address] CA,Total 10.0 mg/dL Normal 8.5-10.1 [facility] Comment on above: Order Comment: TSH Performed By: #### L 501.9520, L500.4050, L100.0100 ####[facility] [address] [place], [address] Chloride [Moles/Vol] 104 mmol/L Normal 98-107 [facility] Comment on above: Order Comment: TSH Performed By: #### L 501.9520, L500.4050, L100.0100 ####[facility] [address] [place], [address] CO2 [Moles/Vol] 28.0 mmol/L Normal 21.0-32.0 [facility] Comment on above: Order Comment: TSH Performed By: #### L 501.9520, L500.4050, L100.0100 ####[facility] [address] [place], [address] Creatinine [Mass/Vol] 1.30 mg/dL High 0.55-1.02 [facility] Comment on above: Order Comment: TSH Result Comment: The validity of the calculated GFR GFRAA in patients over 70 years has not been determined. Clinical correlation is essential. Performed By: #### L 501.9520, L500.4050, L100.0100 ####[facility] [address] [place], [address] EST GFR - AA 51 mL/min Low >60 [facility] Comment on above: Order Comment: TSH Result Comment: Afri can [place] GFR Calc Performed By: #### L 501.9520, L500.4050, L100.0100 ####[facility] [address] [place], [address] GAP 5 Normal 5-15 [facility] Comment on above: Order Comment: TSH Performed By: #### L 501.9520, L500.4050, L100.0100 ####[facility] [address] [place], [address] GFR/1.73 sq M.predicted among non-blacks MDRD (S/P/Bld) [Vol rate/Area] 42 mL/min/{1.73_m2} Low >60 [facility] Comment on above: Order Comment: TSH Result Comment: Non- GFR Calc Performed By: #### L 501.9520, L500.4050, L100.0100 ####[facility] [address] [place], [address] Globulin (S) [Mass/Vol] 4.4 g/dL High 2.2-4.2 [facility] Comment on above: Order Comment: TSH Performed By: #### L 501.9520, L500.4050, L100.0100 ####[facility] [address] [place], [address] Glucose [Mass/Vol] 110 mg/dL High 74-106 [facility] Comment on above: Order Comment: TSH Result Comment: Fast ing Glucose result from 100 to 125 mg/dL suggests IMPAIRED HOMEOSTASIS per A.D.A. criteria. Performed By: #### L 501.9520, L500.4050, L100.0100 ####[facility] [address] [place], [address] Potassium [Moles/Vol] 4.9 mmol/L Normal 3.5-5.1 [facility] Comment on above: Order Comment: TSH Performed By: #### L 501.9520, L500.4050, L100.0100 ####[facility] [address] [place], [address] Sodium [Moles/Vol] 137 mmol/L Normal 136-145 [facility] Comment on above: Order Comment: TSH Performed By: #### L 501.9520, L500.4050, L100.0100 ####[facility] [address] [place], [address] T PROT 7.6 g/dL Normal 6.4-8.2 [facility] Comment on above: Order Comment: TSH Performed By: #### L 501.9520, L500.4050, L100.0100 ####[facility] [address] [place], [address] Urea nitrogen [Mass/Vol] 18 mg/dL Normal 7-18 [facility] Comment on above: Order Comment: TSH Performed By: #### L 501.9520, L500.4050, L100.0100 ####[facility] [address] [place], [address] Eosinophil percentageOrdered By: petey Tirado on 05-24-2024 Eosinophils/100 WBC (Bld) 2.5 % 0-5 [facility] Erythrocyte distribution wid th ratioOrdered By: [facility] on 05-24-2024 Erythrocyte distribution width (RBC) [Ratio] 13.2 % 11.6-14.6 [facility] Erythrocyte distribution wid th standard deviationOrdered By: [facility]24 Erythrocyte distribution width (RBC) [Entitic vol] 45.7 fL High 35.1-43.9 [facility] Estimated glomerular filtrat ion rate (GFR) AmericanOrdered By: rafiaasia Tirado on 05-24-2024 Estimated GFR (MDRD) Amer 51 mL/min Low >60 [facility] Comment on above: GFR Calc Glomerular filtration rate ( GFR) estimationOrdered By: petey Tirado on 05-24-2024 Estimated GFR (MDRD) Non-Af Amer 42 mL/min Low >60 [facility] Comment on above: Non- GFR Calc Glucose measurementOrdered B y: Marvel Tirado on 05-24-2024 Glucose [Mass/Vol] 110 mg/dL High 74-106 [facility] Comment on above: Fasting Glucose resu lt from 100 to 125 mg/dL suggests IMPAIRED HOMEOSTASIS per A.D.A. criteria. Hematocrit Auto (Bld) [Volum e fraction]Ordered By: Marvel Tirado on 05-24-2024 Hematocrit (Bld) [Volume fraction] 47.7 % High 37-47 [facility] Hemoglobin measurementOrdere d By: [facility] on 05-24-2024 Hemoglobin (Bld) [Mass/Vol] 15.8 g/dL High 12.0-15.0 [facility] Immature granulocytes/100 WB C Auto (Bld)Ordered By: petey Tirado on 05-24-2024 Immature granulocytes/100 WBC (Bld) 0.900 % 0.0-0.9 [facility] Comment on above: IG% - Immature Granu locytes (promyelocytes, myelocytes and metamyelocytes) > 1% indicates that a LEFT SHIFT is Present. Laboratory - Chemistry and C hemistry - challengeOrdered By: Marvel Tirado on 05-24-2024 AST [Catalytic activity/Vol] 19 U/L 15-37 [facility] Lymphocytes Auto (Unsp spec) [#/Vol]Ordered By: Marvel Beam on 05-24-2024 Lymphocytes (Bld) [#/Vol] 1.38 10*3/uL 0.83-4.51 [facility] Lymphocytes/100 WBC Auto (Un sp spec)Ordered By: Marvel Beam on 05-24-2024 Lymphocytes/100 WBC (Bld) 20.2 % 19-41 [facility] MCV (mean corpuscular volume ) determinationOrdered By: Marvel Tirado on 05-24-2024 MCV (RBC) [Entitic vol] 94.1 fL 81-99 [facility] Mean corpuscular hemoglobin (MCH) determinationOrdered By: Marvel Tirado on 05-24-2024 MCH (RBC) [Entitic mass] 31.2 pg 27.0-32.0 [facility] Mean corpuscular hemoglobin concentration (MCHC) determinationOrdered By: Marvel Tirado on 05-24-2024 MCHC (RBC) [Mass/Vol] 33.1 g/dL 32-36 [facility] Mean platelet volume determi nationOrdered By: Marvel Tirado on 05-24-2024 Platelet mean volume (Bld) [Entitic vol] 9.9 fL 6.2-12.0 [facility] Monocyte percentageOrdered B y: Marvel Tirado on 05-24-2024 Monocytes/100 WBC (Bld) 7.7 % 0-10 [facility] Neutrophil percentageOrdered By: Marvel Tirado on 05-24-2024 Neutrophils/100 WBC (Bld) 67.5 % 47-70 [facility] Nucleated red blood cell per centageOrdered By: Marvel Beam on 05-24-2024 Nucleated RBC/100 WBC (Bld) [Ratio] 0 % 0-5 [facility] Platelet countOrdered By: Abram Tirado on 01-09-2025 Platelets (Bld) [#/Vol] 310 10*3/uL 150-450 [facility] Potassium measurementOrdered By: Marvel Tirado on 05-24-2024 Potassium [Moles/Vol] 4.9 mmol/L 3.5-5.1 [facility] RBC Auto (Bld) [#/Vol]Ordere d By: Sashalun Beam on 05-24-2024 RBC (Bld) [#/Vol] 5.07 10*6/uL 4.2-5.4 [facility] Serum anion gap measurementO rdered By: Sashalun Beam on 05-24-2024 Anion gap [Moles/Vol] 5 mmol/L 5-15 [facility] Serum globulin measurementOr dered By: Marvel Tirado on 05-24-2024 Globulin (S) [Mass/Vol] 4.4 g/dL High 2.2-4.2 [facility] Serum or plasma alanine church otransferase (ALT) measurementOrdered By: Marvel Tirado on 05-24-2024 ALT [Catalytic activity/Vol] 18 U/L 13-56 [facility] Serum or plasma albumin iftikhar urement (mass/volume)Ordered By: Marvel Tirado on 05-24-2024 Albumin [Mass/Vol] 3.2 g/dL 3.2-5.0 [facility] Serum or plasma alkaline dereck sphatase measurementOrdered By: Marvel Tirado on 05-24-2024 ALP [Catalytic activity/Vol] 78 U/L 45-117 [facility] Serum or plasma calcium iftikhar urement (mass/volume)Ordered By: Marvel Tirado on 05-24-2024 Calcium [Mass/Vol] 10.0 mg/dL 8.5-10.1 [facility] Serum or plasma creatinine m easurement (mass/volume)Ordered By: Marvel Tirado on 05-24-2024 Creatinine [Mass/Vol] 1.30 mg/dL High 0.55-1.02 [facility] Comment on above: The validity of the calculated GFR & GFRAA in patients over 70 years has not been determined. Clinical correlation is essential. Serum or plasma urea nitroge n measurement (mass/volume)Ordered By: Marvel Tirado on 05-24-2024 Urea nitrogen [Mass/Vol] 18 mg/dL 7-18 [facility] Sodium levelOrdered By: Sasha clay Beam on 05-24-2024 Sodium [Moles/Vol] 137 mmol/L 136-145 [facility] TSH QnOrdered By: Marvel Be am on 05-24-2024 Thyroid Stimulating Hormone (TSH) 3.520 uIU/mL 0.358-3.740 [facility] Thyroid Stim Hormone (TSH)on 05-24-2024 TSH 3.520 uIU/mL Normal 0.358-3.740 [facility] Comment on above: Order Comment: TSH Performed By: #### L 501.9520, L500.4050, L100.0100 ####[facility] [address] [place], [place], [address] Total proteinOrdered By: Liam Tirdao on 05-24-2024 Protein [Mass/Vol] 7.6 g/dL 6.4-8.2 [facility] White blood cell (WBC) count Ordered By: Marvel Tirado on 05-24-2024 WBC (Bld) [#/Vol] 6.8 10*3/uL 4.4-11.0 [facility] Inital Evaluation (1) - PTon 04-18-2024 Inital Evaluation (1) - PT [facility] Physical Therapy [address] [place] [address] / REHABILITATION SERVICES INITIAL EVALUATION MR#: [id number] Acct: [id number] Name: YAA BENITEZ Rep #: [id number] : 1950 74 From: Tete ABBASI Referring [...] to be FAXED BACK to us at [phone] for Medicare purposes. For Medicare only, by signing this I certify the plan of care. Please let me know if there are questions or concerns regarding this plan of care. Physician Signature: Date: _ 04/18/24 1226 CC: Dr. Skyler Herman MD; No Primary Care Physician Signed Normal [facility] Cardiology Visit Reporton Cardiology Visit Report [facility] [address] [place] [address]. [address] [place] [address] OFFICE VISIT Date of Service: 04/11/24 MR#: [id number] Acct: [id number] Name: YAA BENITEZ Rep #: [id number] : 1950 Provider: SARA villafana Age/Sex: 74/F [place] [facility] [place]: Signed HPI HPI History of Present [...] BP Intake Visit Reasons: 6 M FU Solution Coordinator Required: No Is patient in pain?: No Allergies bacitracin (From Neosporin (cle-izz-sqxno)) Allergy (Verified 04/11/24 13:06) Rash bee venom protein (honey bee) Allergy (Verified 04/11/24 13:06) Anaphylaxis ciprofloxacin (From Cipro) Allergy (Verified 04/11/24 13:06) Swelling, hives metronidazole (From Flagyl) Allergy (Verified 04/11/24 13:06) Swelling, hives neomycin (From Neosporin (tco-lhz-qdbof)) Allergy (Verified 04/11/24 13:06) Rash polymyxin B (From Neosporin (amq-vei-mpbdz)) Allergy (Verified 04/11/24 13:06) Rash Medications ???Medication [...] balance problems (more content not included)... Normal [facility] HIP, UNI W/ Pelvis 2-3 Views on 04-10-2024 HIP, UNI W/ Pelvis 2-3 Views [facility] [address] [place] [address] HIP, UNI W/ Pelvis 2-3 Views MR#: [id number] Acct: [id number] Name: YAA BENITEZ Rep #: [id number] : 1950 F 74 From: Odilia Pete PCP: Care Physician,No Primary Status: DEP AMB Study: HIP, UNI W/ Pelvis 2-3 Views Date of Exam: Exam# [id number] Ordering Dr: Skyler Herman MD [id number] INDICATION: hip pain EXAMINATION/TECHNIQUE: X-RAY - XR [...] 15:57 EST Reading Location ID and State: [facility] / [place] Tel , Service support , CC: Dr. Skyler Herman MD; No Primary Care Physician Model Making Supervisor: Signed Normal [facility] Orthopedic Visit Reporton Orthopedic Visit Report [facility] [address] [place] [address] [address] [place] [address] OFFICE VISIT Date of Service: 04/10/24 MR#: [id number] Acct: [id number] Name: YAA BENITEZ Rep #: [id number] : 1950 Provider: Dr. Skyler corona MD Age/Sex: 74/F Location[place] [facility] [place] Status: Signed with Addenda ADDENDUM by Lindsey [...] Performing Provider: Skyler Herman MD Performing Location: [facility] Administered by: Skyler Herman MD on 04/10/24 11:03 Dose Route Admin Location Dispensed Lot Number Expiration Date [facility] Man ufacturer 40 mg intra-articular left hip 1 mL [id number] 09/13/25 2605-9434-08 [facility] Date cc: * Signed Intake Vital Signs 11/03/23 14:11 04/10/24 10:14 Height 5 ft 5 in 5 ft 5 in Weight: 173 lb 4 oz BMI 28.8 Intake Visit Reasons: LEFT HIP Accompanied by: Self Is patient in pain?: Yes Pain scale (1-10): 7 Allergies bacitracin (From Neosporin (avi-vzf-qettb)) Allergy (Verified 04/10/24 10:15) Rash bee venom protein (honey bee) Allergy (Verified 04/10/24 10:15) Anaphylaxis ciprofloxacin (From Cipro) Allergy (Verified 04/10/24 10:15) Swelling, hives metronidazole (From Flagyl) Allergy (Verified 04/10/24 10:15) Swelling, hives neomycin (From Neosporin (vbj-ygv-dscmu)) Allergy (Verified 04/10/24 10:15) Rash polymyxin B (From Neosporin (ioo-dhq-dcrvb)) Allergy (Verified 04/10/24 10:15) Rash Medications ???Medication [...] Comment 992 (more content not included)... Normal [facility] Basic Metabolic Profile (BMP )on 04-03-2024 BUN/CRE 12.3 RATIO Normal - [facility] Comment on above: Performed By: #### L 500.3400, L500.4100, L501.5200, L500.2500, L501.9520 #### [facility] [address] [place], [address] CA,Total 9.4 mg/dL Normal 8.5-10.1 [facility] Comment on above: Performed By: #### L 500.3400, L500.4100, L501.5200, L500.2500, L501.9520 #### [facility] [address] [place], [address] Chloride [Moles/Vol] 110 mmol/L High 98-107 [facility] Comment on above: Performed By: #### L 500.3400, L500.4100, L501.5200, L500.2500, L501.9520 #### [facility] [address] [place], [address] CO2 [Moles/Vol] 28.0 mmol/L Normal 21.0-32.0 [facility] Comment on above: Performed By: #### L 500.3400, L500.4100, L501.5200, L500.2500, L501.9520 #### [facility] [address] [place], [address] Creatinine [Mass/Vol] 0.97 mg/dL Normal 0.55-1.02 [facility] Comment on above: Result Comment: The validity of the calculated GFR GFRAA in patients over 70 years has not been determined. Clinical correlation is essential. Performed By: #### L 500.3400, L500.4100, L501.5200, L500.2500, L501.9520 #### [facility] [address] [place], [address] EST GFR - AA 72 mL/min Normal >60 [facility] Comment on above: Result Comment: Afri can [place] GFR Calc Performed By: #### L 500.3400, L500.4100, L501.5200, L500.2500, L501.9520 #### [facility] [address] [place], [address] GAP 2 Low 5-15 [facility] Comment on above: Performed By: #### L 500.3400, L500.4100, L501.5200, L500.2500, L501.9520 #### [facility] [address] [place], [address] GFR/1.73 sq M.predicted among non-blacks MDRD (S/P/Bld) [Vol rate/Area] 59 mL/min/{1.73_m2} Low >60 [facility] Comment on above: Result Comment: Non- GFR Calc Performed By: #### L 500.3400, L500.4100, L501.5200, L500.2500, L501.9520 #### [facility] [address] [place], [address] Glucose [Mass/Vol] 93 mg/dL Normal 74-106 [facility] Comment on above: Performed By: #### L 500.3400, L500.4100, L501.5200, L500.2500, L501.9520 #### [facility] [address] [place], [address] Potassium [Moles/Vol] 4.6 mmol/L Normal 3.5-5.1 [facility] Comment on above: Performed By: #### L 500.3400, L500.4100, L501.5200, L500.2500, L501.9520 #### [facility] [address] [place], [address] Sodium [Moles/Vol] 139 mmol/L Normal 136-145 [facility] Comment on above: Performed By: #### L 500.3400, L500.4100, L501.5200, L500.2500, L501.9520 #### [facility] [address] [place], [address] Urea nitrogen [Mass/Vol] 12 mg/dL Normal 7-18 [facility] Comment on above: Performed By: #### L 500.3400, L500.4100, L501.5200, L500.2500, L501.9520 #### [facility] [address] [place], [address] Bilirubin directOrdered By: Shanna Alarcon on 04-03-2024 Bilirubin.direct [Mass/Vol] 0.10 mg/dL 0.00-0.30 [facility] Bilirubin, totalOrdered By: Shanna Alarcon on 04-03-2024 Bilirubin [Mass/Vol] 0.40 mg/dL 0.20-1.00 [facility] Comment on above: For patients on eltr ombopag therapy, use of Dimension [place] TBIL is not recommended. Blood urea nitrogen (BUN)/cr eatinine ratioOrdered By: Shanna Alarcon on 04-03-2024 Urea nitrogen/Creatinine [Mass ratio] 12.3 mg/mg 10-20 [facility] Carbon dioxide measurementOr dered By: Shanna Alarcon on 04-03-2024 CO2 [Moles/Vol] 28.0 mmol/L 21.0-32.0 [facility] Chloride measurementOrdered By: Shanna Alarcon on 04-03-2024 Chloride [Moles/Vol] 110 mmol/L High 98-107 [facility] Estimated glomerular filtrat ion rate (GFR) AmericanOrdered By: Shanna Alarcon on 04-03-2024 Estimated GFR (MDRD) Amer 72 mL/min >60 [facility] Comment on above: GFR Calc Glomerular filtration rate ( GFR) estimationOrdered By: Shanna Alarcon on 04-03-2024 Estimated GFR (MDRD) Non-Af Amer 59 mL/min Low >60 [facility] Comment on above: Non- GFR Calc Glucose measurementOrdered B y: Shanna Alarcon on 04-03-2024 Glucose [Mass/Vol] 93 mg/dL 74-106 [facility] High density lipoprotein (HD L) measurementOrdered By: Shanna Alarcon on 04-03-2024 Cholesterol in HDL [Mass/Vol] 71 mg/dL >40 [facility] Comment on above: The drugs N-Acetylcy steine and Metamizole may falsely depress this assay. Reference Range HDL <40 mg/dL Low HDL Cholesterol HDL >or= 60 mg/dL High HDL Cholesterol Laboratory - Chemistry and C hemistry - challengeOrdered By: Shanna Alarcon on 04-03-2024 AST [Catalytic activity/Vol] 18 U/L 15-37 [facility] Lipid Profileon 04-03-2024 Cholesterol [Mass/Vol] 185 mg/dL Normal 200 [facility] Comment on above: Result Comment: <200 mg/dL Desirable 200-240 mg/dL Borderline >240 mg/dL High Risk Performed By: #### L 500.3400, L500.4100, L501.5200, L500.2500, L501.9520 #### [facility] [address] [place], [address] Cholesterol in HDL [Mass/Vol] 71 mg/dL Normal [facility] Comment on above: Result Comment: The drugs N-Acetylcysteine and Metamizole may falsely depress this assay. Reference Range HDL <40 mg/dL Low HDL Cholesterol HDL >or= 60 mg/dL High HDL Cholesterol Performed By: #### L 500.3400, L500.4100, L501.5200, L500.2500, L501.9520 #### [facility] [address] [place], [address] Cholesterol in LDL [Mass/Vol] 99 mg/dL Normal 0-130 [facility] Comment on above: Performed By: #### L 500.3400, L500.4100, L501.5200, L500.2500, L501.9520 #### [facility] [address] [place], [address] Cholesterol in VLDL [Mass/Vol] 15 mg/dL Normal 5-40 [facility] Comment on above: Performed By: #### L 500.3400, L500.4100, L501.5200, L500.2500, L501.9520 #### [facility] [address] [place], [address] Triglyceride [Mass/Vol] 77 mg/dL Normal [facility] Comment on above: Result Comment: The drugs N-Acetylcysteine and Metamizole may falsely depress this assay. Serum Triglycerides Reference Interval Normal <150 mg/dL Borderline high 150 - 199 mg/dL High 200 - 499 mg/dL Very High > or = 500 mg/dL Performed By: #### L 500.3400, L500.4100, L501.5200, L500.2500, L501.9520 #### [facility] [address] [place], [address] Liver Profileon 04-03-2024 Albumin [Mass/Vol] 3.4 g/dL Normal 3.2-5.0 [facility] Comment on above: Performed By: #### L 500.3400, L500.4100, L501.5200, L500.2500, L501.9520 #### [facility] [address] [place], [address] ALK P 74 U/L Normal 45-117 [facility] Comment on above: Performed By: #### L 500.3400, L500.4100, L501.5200, L500.2500, L501.9520 #### [facility] [address] [place], [address] ALT [Catalytic activity/Vol] 16 U/L Normal 13-56 [facility] Comment on above: Performed By: #### L 500.3400, L500.4100, L501.5200, L500.2500, L501.9520 #### [facility] [address] [place], [address] AST [Catalytic activity/Vol] 18 U/L Normal 15-37 [facility] Comment on above: Performed By: #### L 500.3400, L500.4100, L501.5200, L500.2500, L501.9520 #### [facility] [address] [place], [address] Bilirubin [Mass/Vol] 0.40 mg/dL Normal 0.20-1.00 [facility] Comment on above: Result Comment: For patients on eltrombopag therapy, use of Dimension [place] TBIL is not recommended. Performed By: #### L 500.3400, L500.4100, L501.5200, L500.2500, L501.9520 #### [facility] [address] [place], [address] Bilirubin.direct [Mass/Vol] 0.10 mg/dL Normal 0.00-0.30 [facility] Comment on above: Performed By: #### L 500.3400, L500.4100, L501.5200, L500.2500, L501.9520 #### [facility] [address] [place], [address] Globulin (S) [Mass/Vol] 3.7 g/dL Normal 2.2-4.2 [facility] Comment on above: Performed By: #### L 500.3400, L500.4100, L501.5200, L500.2500, L501.9520 #### [facility] [address] [place], [address] T PROT 7.1 g/dL Normal 6.4-8.2 [facility] Comment on above: Performed By: #### L 500.3400, L500.4100, L501.5200, L500.2500, L501.9520 #### [facility] [address] [place], [address] Low density lipoprotein (LDL ) cholesterol measurementOrdered By: Shanna Alarcon on 04-03-2024 Cholesterol in LDL [Mass/Vol] 99 mg/dL 0-130 [facility] Magnesiumon 04-03-2024 Magnesium [Mass/Vol] 2.2 mg/dL Normal 1.6-2.6 [facility] Comment on above: Performed By: #### L 500.3400, L500.4100, L501.5200, L500.2500, L501.9520 #### [facility] [address] [place], [address] Magnesium measurementOrdered By: Shanna Alarcon on 04-03-2024 Magnesium [Mass/Vol] 2.2 mg/dL 1.6-2.6 [facility] Potassium measurementOrdered By: Shanna Alarcon on 04-03-2024 Potassium [Moles/Vol] 4.6 mmol/L 3.5-5.1 [facility] Serum anion gap measurementO rdered By: Shanna Alarcon on 04-03-2024 Anion gap [Moles/Vol] 2 mmol/L Low 5-15 [facility] Serum globulin measurementOr dered By: Shanna Alarcon on 04-03-2024 Globulin (S) [Mass/Vol] 3.7 g/dL 2.2-4.2 [facility] Serum or plasma alanine church otransferase (ALT) measurementOrdered By: Shanna Alarcon on 04-03-2024 ALT [Catalytic activity/Vol] 16 U/L 13-56 [facility] Serum or plasma albumin iftikhar urement (mass/volume)Ordered By: Shanna Alarcon on 04-03-2024 Albumin [Mass/Vol] 3.4 g/dL 3.2-5.0 [facility] Serum or plasma alkaline dereck sphatase measurementOrdered By: Shanna Alarcon on 04-03-2024 ALP [Catalytic activity/Vol] 74 U/L 45-117 [facility] Serum or plasma calcium iftikhar urement (mass/volume)Ordered By: Shanna Alarcon on 04-03-2024 Calcium [Mass/Vol] 9.4 mg/dL 8.5-10.1 [facility] Serum or plasma cholesterol measurement (mass/volume)Ordered By: Shanna Alarcon on 04-03-2024 Cholesterol [Mass/Vol] 185 mg/dL <200 [facility] Comment on above: <200 mg/dL Desirable 200-240 mg/dL Borderline >240 mg/dL High Risk Serum or plasma creatinine m easurement (mass/volume)Ordered By: Shanna Alarcon on 04-03-2024 Creatinine [Mass/Vol] 0.97 mg/dL 0.55-1.02 [facility] Comment on above: The validity of the calculated GFR & GFRAA in patients over 70 years has not been determined. Clinical correlation is essential. Serum or plasma urea nitroge n measurement (mass/volume)Ordered By: Shanna Alarcon on 04-03-2024 Urea nitrogen [Mass/Vol] 12 mg/dL 7-18 [facility] Sodium levelOrdered By: Kelsey Alarcon on 04-03-2024 Sodium [Moles/Vol] 139 mmol/L 136-145 [facility] TSH QnOrdered By: Shanna purvis on 04-03-2024 Thyroid Stimulating Hormone (TSH) 3.190 uIU/mL 0.358-3.740 [facility] Thyroid Stim Hormone (TSH)on 04-03-2024 TSH 3.190 uIU/mL Normal 0.358-3.740 [facility] Comment on above: Performed By: #### L 500.3400, L500.4100, L501.5200, L500.2500, L501.9520 ####[facility] [id number] [place], [address] Total proteinOrdered By: Mp Alarcon on 04-03-2024 Protein [Mass/Vol] 7.1 g/dL 6.4-8.2 [facility] Triglycerides measurementOrd ered By: Shanna Alarcon on 04-03-2024 Triglyceride [Mass/Vol] 77 mg/dL <199 [facility] Comment on above: The drugs N-Acetylcy steine and Metamizole may falsely depress this assay.Serum Triglycerides Reference Interval Normal <150 mg/dL Borderline high 150 - 199 mg/dL High 200 - 499 mg/dL Very High > or = 500 mg/dL Very low density lipoprotein (VLDL) cholesterol measurementOrdered By: Shanna Alarcon on 04-03-2024 VLDL Cholesterol 15 mg/dL 5-40 [facility] Cardiology Visit Reporton Cardiology Visit Report [facility] [address] [place] [address] OFFICE VISIT Date of Service: 11/03/23 MR#: [id number] Acct: [id number] Name: YAA BENITEZ Rep #: [id number] : 1950 Provider: SARA purvis Age/Sex: 73/F [place] [facility] [place] Status: Signed [facility] History of Present Illness Details: This is [...] 96 Intake Visit Reasons: 1 Y FU Solution Coordinator Required: No Is patient in pain?: No Allergies bacitracin (From Neosporin (vdn-miu-tnaik)) Allergy (Verified 11/03/23 14:11) Rash bee venom protein (honey bee) Allergy (Verified 11/03/23 14:11) Anaphylaxis ciprofloxacin (From Cipro) Allergy (Verified 11/03/23 14:11) Swelling, hives metronidazole (From Flagyl) Allergy (Verified 11/03/23 14:11) Swelling, hives neomycin (From Neosporin (iga-uqd-rujmn)) Allergy (Verified 11/03/23 14:11) Rash polymyxin B (From Neosporin (vgn-iig-jjvpb)) Allergy (Verified 11/03/23 14:11) Rash Medications ???Medication [...] (Reviewed 11/03/23 @ 14:11 by Shanna Alarcon MARKETING COMPLIANCE MANAGER, MARKETING COMPLIANCE MANAGER-C) Essential hypertension Abdominal pain Angioedema Hypotension Dyspnea [...] No Khris (more content not included)... Normal [facility] Absolute lymphocyte countOrd ered By: Emily Perry on 01-06-2023 Lymphocytes Auto (Unsp spec) [#/Vol] 2.13 10*3/uL 0.83-4.51 [facility] Basophil percentageOrdered B y: Emily Perry on 01-06-2023 Basophils/100 WBC (Bld) 1.7 % 0-1 [facility] Chloride [Moles/Vol] 107 mmol/L 98-107 [facility] Eosinophils/100 WBC (Bld) 2.5 % 0-5 [facility] Glucose [Mass/Vol] 95 mg/dL 74-106 [facility] Neutrophils (Bld) [#/Vol] 3.5 10*3/uL 2.0-7.7 [facility] Neutrophils/100 WBC (Bld) 54.8 % 47-70 [facility] Potassium [Moles/Vol] 4.8 mmol/L 3.5-5.1 [facility] Sodium [Moles/Vol] 138 mmol/L 136-145 [facility] WBC (Bld) [#/Vol] 6.4 10*3/uL 4.4-11.0 [facility] Blood erythrocytes count (nu mber/volume)Ordered By: Emily Perry on 01-06-2023 RBC (Bld) [#/Vol] 5.21 10*6/uL 4.2-5.4 [facility] Blood hemoglobin measurement (mass/volume)Ordered By: Emily Perry on 01-06-2023 Hemoglobin (Bld) [Mass/Vol] 16.6 g/dL 12.0-15.0 [facility] Blood lymphocytes/100 leukoc ytesOrdered By: Emily Perry on 01-06-2023 Lymphocytes/100 WBC (Bld) 33.2 % 19-41 [facility] Blood monocytes/100 leukocyt esOrdered By: Emily Perry on 01-06-2023 Monocytes/100 WBC (Bld) 7.5 % 0-10 [facility] Blood platelet mean volumeOr dered By: Emily Perry on 01-06-2023 Platelet mean volume (Bld) [Entitic vol] 11.1 fL 6.2-12.0 [facility] Determination of erythrocyte mean corpuscular volume (MCV)Ordered By: Emily Perry on 01-06-2023 MCV (RBC) [Entitic vol] 97.3 fL 81-99 [facility] Hematocrit Auto (Bld) [Volum e fraction]Ordered By: Emily Perry on 01-06-2023 Hematocrit (Bld) [Volume fraction] 50.7 % 37-47 [facility] Laboratory - Chemistry and C hemistry - challengeOrdered By: Emily Perry on 01-06-2023 CO2 [Moles/Vol] 24.0 mmol/L 21.0-32.0 [facility] Urea nitrogen/Creatinine [Mass ratio] 12.0 mg/mg 10-20 [facility] Laboratory - Hematology and Cell countsOrdered By: Emily Perry on 01-06-2023 Erythrocyte distribution width (RBC) [Entitic vol] 47.6 fL 35.1-43.9 [facility] Erythrocyte distribution width (RBC) [Ratio] 13.2 % 11.6-14.6 [facility] Immature granulocytes/100 WBC (Bld) 0.300 % 0.0-0.9 [facility] Comment on above: IG% - Immature Granu locytes (promyelocytes, myelocytes and metamyelocytes) > 1% indicates that a LEFT SHIFT is Present. MCH (RBC) [Entitic mass] 31.9 pg 27.0-32.0 [facility] Nucleated RBC/100 WBC (Bld) [Ratio] 0 % 0-5 [facility] MCHC Auto (RBC) [Mass/Vol]Or dered By: Emily Perry on 01-06-2023 MCHC (RBC) [Mass/Vol] 32.7 g/dL 32-36 [facility] No Panel InformationOrdered By: Emily Perry on 01-06-2023 Estimated GFR (MDRD) Amer 70 mL/min >60 [facility] Comment on above: GFR Calc Estimated GFR (MDRD) Non-Af Amer 58 mL/min >60 [facility] Comment on above: Non- GFR Calc Platelets bldOrdered By: Michael Perry on 01-06-2023 Platelets (Bld) [#/Vol] 257 10*3/uL 150-450 [facility] Serum or plasma calcium iftikhar urement (mass/volume)Ordered By: Emily Perry on 01-06-2023 Calcium [Mass/Vol] 9.7 mg/dL 8.5-10.1 [facility] Serum or plasma creatinine m easurement (mass/volume)Ordered By: Emily Perry on 01-06-2023 Creatinine [Mass/Vol] 1.00 mg/dL 0.55-1.02 [facility] Comment on above: The validity of the calculated GFR & GFRAA in patients over 70 years has not been determined. Clinical correlation is essential. Serum or plasma urea nitroge n measurement (mass/volume)Ordered By: Emily Perry on 01-06-2023 Urea nitrogen [Mass/Vol] 12 mg/dL 7-18 [facility] Thin prep Papanicolaou smear with manual screeningOrdered By: Emily Perry on 01-06-2023 Thin prep Papanicolaou smear with manual screening 7 -15 [facility] Basophil percentageOrdered B y: Dr. Pruitt on 11-04-2022 Bilirubin [Mass/Vol] 0.30 mg/dL 0.20-1.00 [facility] Comment on above: For patients on eltr ombopag therapy, use of Dimension [place] TBIL is not recommended. Cholesterol [Mass/Vol] 241 mg/dL <200 [facility] Comment on above: <200 mg/dL Desirable 200-240 mg/dL Borderline >240 mg/dL High Risk Protein [Mass/Vol] 7.4 g/dL 6.4-8.2 [facility] Triglyceride [Mass/Vol] 185 mg/dL <199 [facility] Comment on above: The drugs N-Acetylcy steine and Metamizole may falsely depress this assay.Serum Triglycerides Reference Interval Normal <150 mg/dL Borderline high 150 - 199 mg/dL High 200 - 499 mg/dL Very High > or = 500 mg/dL Direct bilirubinOrdered By: Dr. Pruitt on 11-04-2022 Bilirubin.direct [Mass/Vol] 0.09 mg/dL 0.00-0.30 [facility] Laboratory - Chemistry and C hemistry - challengeOrdered By: Dr. Pruitt on 11-04-2022 ALP [Catalytic activity/Vol] 80 U/L 45-117 [facility] ALT [Catalytic activity/Vol] 19 U/L 13-56 [facility] Globulin (S) [Mass/Vol] 3.9 g/dL 2.2-4.2 [facility] Serum or plasma albumin iftikhar urement (mass/volume)Ordered By: Dr. Pruitt on 11-04-2022 Albumin [Mass/Vol] 3.5 g/dL 3.2-5.0 [facility] Serum or plasma cholesterol in HDL measurement (mass/volume)Ordered By: Dr. Pruitt on 11-04-2022 Cholesterol in HDL [Mass/Vol] 65 mg/dL >40 [facility] Comment on above: The drugs N-Acetylcy steine and Metamizole may falsely depress this assay. Reference Range HDL <40 mg/dL Low HDL Cholesterol HDL >or= 60 mg/dL High HDL Cholesterol Serum or plasma cholesterol in VLDL measurement (mass/volume)Ordered By: Dr. Pruitt on 11-04-2022 Cholesterol in VLDL [Mass/Vol] 37 mg/dL 5-40 [facility] Serum or plasma low density lipoprotein (LDL) cholesterol measurement (mass/volume)Ordered By: Dr. Pruitt on 11-04-2022 Cholesterol in LDL [Mass/Vol] 139 mg/dL 0-130 [facility] Thin prep Papanicolaou smear with manual screeningOrdered By: Dr. Pruitt on 11-04-2022 Thin prep Papanicolaou smear with manual screening 23 U/L 15-37 [facility] CNOVon 03-18-2022 CNOV Office Visit (IVÁN ) ----- YAA BENITEZ ([id number]) 1950 F Date Time Provider Department 03/18/22 3:00 PM JAKE BARBOSA During your visit today, we recorded the following information about you: Jake Barbosa MD 04/19/2022 7:42 AM Signed Jake Barbosa MD Department of Orthopaedics Orthopaedics [address] [facility] [address] Dept: [phone] Dept March 18, 2022 CHIEF COMPLAINT: Established [...] Flagyl [Metronidazole], Polymyxin [Bacitracin-Polymyxin B], and Neosporin [Sgmzeqfa-Oxrrnjxcic-Fzsg myxin] ROS: General (negative for fatigue, malaise, weight loss/gain) HEENT (negative for headache, earache, recent vision changes, sinus pain, sore throat) Respiratory (no recent shor (more content not included)... Normal [facility] CNOVon 03-01-2022 CNOV Office Visit (ORTHWS ) ----- YAA BENITEZ ([id number]) 1950 F Date Time Provider Department 03/01/22 10:45 AM JAKE BARBOSA During your visit today, we recorded the following information about you: Jake Barbosa MD 03/22/2022 7:47 AM Signed Jake Barbosa MD Department of Orthopaedics Orthopaedics [address] [facility] [address] Dept: [phone] Dept March 01, 2022 CHIEF COMPLAINT: Established Patient and Follow Up of the Right Ankle HPI Patient is here today 4 weeks 4 days post fracture of right distal fibula. Patient states she is not having pain and has been ambulating fine in the walking boot. Xrays taken today at [facility]. ASSESSMENT: S82.725O Avulsion fracture of distal fibula (primary encounter [...] malleolus. Imaging: IMPRESSION: Healing distal fibular fracture. Model Making Supervisor: MARGIE Transcribe Date/Time: Mar 02 2022 1:34P [...] Flagyl [Metronidazole], Polymyxin [Bacitracin-Polymyxin B], and Neosporin [Dqwvhbvt-Zvcatothfb-Muhb myxin] ROS: General (negative for fatigue, malaise, weight loss/gain) HEENT (negative for headache, earache, recent (more content not included)... Normal [facility] XR ANKLE 3V AP/LAT/OBL RTon 03-01-2022 XR [...] distal Achilles. IMPRESSION: Healing distal fibular fracture. Model Making Supervisor: MARGIE Transcribe Date/Time: Mar 02 2022 1:34P Dictated by : YIFAN FERNANDEZ MD This examination was interpreted and the report reviewed and electronically signed by: YIFAN FERNANDEZ MD on Mar 02 2022 1:36PM EST [id number] Normal [facility] CNOVon 02-04-2022 CNOV Office Visit (ORTHWS ) ----- YAA BENITEZ ([id number]) 1950 F Date Time Provider Department 02/04/22 3:30 PM JAKE BARBOSA During your visit today, we recorded the following information about you: Jake Barbosa MD 02/16/2022 1:09 PM Signed Jake Barbosa MD Department of Orthopaedics Orthopaedics [address] [facility] [address] Dept: [phone] Dept February 04, 2022 CHIEF COMPLAINT: New and Fracture of the Right Ankle HPI Patient here today for right ankle fracture. States she was walking on an uneven sidewalk outside the critical access hospital and twisted the ankle. She immediately was not able to bear any weight. She was taken by EMS to [facility]. She arrives in a splint today. She has been taking hydrocodone only at bedtime. ASSESSMENT: S82.833N Avulsion fracture of distal fibula (primary encounter [...] B], and (more content not included)... [facility] Y[facility] ([id number]) 1950 F Date Time Provider Department 01/28/22 JAKE BARBOSA During your visit today, we recorded the following information about you: Jamia Dov 01/28/2022 9:37 AM Signed [place] sidewalk [place] 01[place]28[place]. Went to [facility] ER for broken ankle. Scheduled for a 02/03/22 appt Sintia Elizondo Ma 01/28/2022 2:41 PM Signed Noted. Thanks. 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] 07/12/2006 Encounter Status:Closed by SINTIA ELIZONDO MA on 01/28/22 [facility] Bas[facility] percentageon 2021 Chloride [Moles/Vol] 108 mmol/L 98-[address] [facility] Work Phone: Glucose [Mass/Vol] 84 mg/dL 74-106 [facility] Work Phone: Potassium [Moles/Vol] 4.2 mmol/L 3.5-5.1 [facility] Work Phone: Sodium [Moles/Vol] 138 mmol/L 136-145 [facility] Work Phone: Laboratory - Chemistry and C hemistry - challengeon 11-27-2021 CO2 [Moles/Vol] 24.0 mmol/L 21.0-32.0 [facility] Work Phone: Urea nitrogen/Creatinine [Mass ratio] 16.3 mg/mg 10-20 [facility] Work Phone: No Panel Informationon 11-27 Estimated GFR (MDRD) Amer 77 mL/min >60 [facility] Work Phone: Comment on above: GFR Calc Estimated GFR (MDRD) Non-Af Amer 64 mL/min >60 [facility] Work Phone: Comment on above: Non- GFR Calc Serum or plasma calcium iftikhar urement (mass/volume)on 11-27-2021 Calcium [Mass/Vol] 9.7 mg/dL 8.5-10.1 [facility] Work Phone: Serum or plasma creatinine m easurement (mass/volume)on 11-27-2021 Creatinine [Mass/Vol] 0.92 mg/dL 0.55-1.02 [facility] Work Phone: Comment on above: The validity of the calculated GFR & GFRAA in patients over 70 years has not been determined. Clinical correlation is essential. Serum or plasma urea nitroge n measurement (mass/volume)on 11-27-2021 Urea nitrogen [Mass/Vol] 15 mg/dL 7-18 [facility] Work Phone: Thin prep Papanicolaou smear with manual screeningon 11-27-2021 Thin prep Papanicolaou smear with manual screening 6 - [facility] Work Phone: XR Chest PA and Lateralon IMPRESSION: No acute radiographic abnormality in the lungs. Focal bulging of the anterior aortic arch may represent aneurysm or pseudoaneurysm. Nonemergent CTA chest may be obtained for further evaluation. Model Making Supervisor: MARGIE Transcribe Date/Time: Nov 29 2020 12:16P Dictated by : ALLISON MUNGUIA MD This examination was interpreted and the report reviewed and electronically signed by: ALLISON MUNGUIA MD on Nov 29 2020 12:20PM [facility] DIVISION OF RADIOLOGY * * *Final [...] shows degenerative changes. DIVISION OF RADIOLOGY Provider, [facility] - 11/29/2020 * * *Final Report* [...] chest may be obtained for further evaluation. Model Making Supervisor: MARGIE Transcribe Date/Time: Nov 29 2020 12:16P Dictated by : ALLISON MUNGUIA MD This examination was interpreted and the report reviewed and electronically signed by: ALLISON MUNGUIA MD on Nov 29 2020 12:20PM EST [facility] Radiology Study observation (narrative) [facility] XR Chest PA and LateralOrder ed By: [facility] Provider on 11-29-2020 [facility] Post Op (Colon and Rectal Gusman rgery)on [...] starting 3 days prior to surgery; Therapy: [id number] to (Last Rx:[id number]) Requested for: [id number]; Status: ACTIVE - Retrospective By Protocol Authorization Ordered Rx By: Marcelino Calero; Dispense: 0 Days ; #:3 Capsule; Refill: 0;For: Diverticulitis, colon; ROBERTO = N; Verified Transmission to [id number]; Last Updated By: SystemParadial; 10/10/2018 11:49:18 AM Hibiclens 4 % External Liquid; USE DIRECTED as preop shower; Therapy: 23Oct2018 to (Last Rx:23Oct2018) Requested for: 23Oct2018 Ordered Rx By: Asiya Mosley; Dispense: 0 Days ; #:1 X 118 ML Bottle; Refill: 0;For: Diverticulitis, colon; ROBERTO = N; Verified Transmission to [facility]; Last Updated By: Musicshake; 10/23/2018 3:31:41 PM Neomycin Sulfate 500 MG Oral Tablet; take 2 tablets at 6pm, 7pm and 11pm the day before surgery; Therapy: 10Oct2018 to (Last Rx:10Oct2018) Requested for: 10Oct2018; Status: ACTIVE - Retrospective By Protocol Authorization Ordered Rx By: Marcelino Calero; Dispense: 0 Days ; #:6 Tablet; Refill: 0;For: Diverticulitis, colon; ROBERTO = N; Verified Transmission to [facility]; Last Updated By: Musicshake; 10/10/2018 11:49:11 AM Aspirin 81 MG Oral [...] Metoprolol Tartrate 25 MG Oral Tablet; Therapy: (Recorded:[id number]) to Recorded Dispense: 0 Days ; #: Sufficient; Refill: 0; ROBERTO = N; Record; Last Updated By: Sintia Parikh; 10/10/2018 10:47:01 AM Quinapril HCl - 20 MG Oral Tablet; Therapy: (Recorded:[id number]) to Recorded Dispense: 0 Days ; #: Sufficient; Refill: 0; ROBERTO = N; Record; Last Updated By: Sintia Parikh; 10/10/2018 10:47:01 AM Sertraline HCl - 100 MG Oral Tablet; Therapy: (Recorded:[id number]) to Recorded Dispense: 0 Days ; #: Sufficient; Refill: 0; ROBERTO = N; Record; Last Updated By: Sintia Parikh; 10/10/2018 10:47:01 AM Vitals Vital Signs Recorded: 59Way5188 10:47AM Ggnufwaukmk70.1 F Heart Rate79 Jhaojgmbkem67 Jbcslsiw316 Jvoaemjlb44 Height5 ft 4 in Rcvtzv977 lb 3 oz BMI Ajxfuxookr02.52 BSA Calculated1.64 Physical Exam Constitutional - General appearance: In no acute distress, well appearing and well nourished. Abdomen and Pelvis: Abdomen: Non-tender, no abdominal masses. Assessment of incision: Clean, dry, and intact. helene removed in the usual fastion. Results/Data Surgical [id number] 10:00Marcelino Gomez NameResultFlagReference Case Surgical Pathology(Report) Name YAA BENITEZ Pathologist: ELISE PARMAR M.D. Date of Procedure: 11/02/2018 Date Received: 11/02/2018 Date Reported 11/06/2018 Submitting Physician: MARCELINO CALERO MD Location: [facility] Other External # FINAL DIAGNOSIS A. SIGMOID [...] is unremarkable. Tissue is submitted to HTPF. Clinical Programmer sections are submitted in 5 cassettes. SPC Summary of Cassettes: Specimen Label Site A 1-4 diverticula 5 possible lymph node [facility]/11/02/2018 Diagnoses/Problems Diverticulitis, colon (562.11) [...] Nov 24 2018 12:52PM EST (Author) Normal [place] Daily Progress Note-Colorect al Surgeryon 11-07-2018 Daily Progress Note-Colorectal Surgery Service: Colorectal Surgery Subjective Data: YAA BENITEZ is a 68 year old Female who is Hospital Day # 6 and POD #5 for Open sigmoid Colectomy. No acute events overnight. Denies any N/V. Having flatus and BMs. Afebrile, hemodynamically stable. Objective Data: Objective Information: T PRBPSpO2 Value37.31749250/8596% Date/Time11/07 7: 7: 7: 7: 7:23 Range(36.8C - 37.3C ) (87 - 102 ) (16 - 18 ) (116 - 129 )/ (75 - 85 ) (90% - 96% ) Highest temp of 37.3 C was recorded at 11/06 15:51 ---- Intake and Output ----- Mn/Dy/[facility] Nov 07, 2018 6:00 [id number] Nov 06, 2018 10:00 [id number] Nov 06, 2018 2:00 [id number] The Intake and Output Totals for the last 24 hours are: [facility]akeO[facility]astern [facility] centerNet [id number] Physical Exam: Constitutional: NAD, laying in bed [...] Nicolas Garay MD PGY1 [place] [address] Signature/Cosignature/Att estation: Note Completion: Attending AttestationI reviewed [...] Updated: 07-Nov-2018 11:05 by Marcelino Calero) Normal [facility] BASIC METABOLIC PANELon 10-15 Anion gap [Moles/Vol] 13 mmol/L Normal - [facility] Comment on above: Performed By: #### C OAGS #### [facility] [address] [place] [address] Calcium [Mass/Vol] 8.9 mg/dL Normal 8.6 - 10.6 [facility] Comment on above: Performed By: #### C OAGS #### [facility] [address] [place] [address] Chloride [Moles/Vol] 115 mmol/L High 98 - 107 [facility] Comment on above: Performed By: #### C OAGS #### [facility] [address] [place] [address] Creatinine [Mass/Vol] 0.67 mg/dL Normal 0.50 - 1.05 [facility] Comment on above: Performed By: #### C OAGS #### [facility] [address] [place] [address] GFR- AM. >60 Normal >60 [facility] Comment on above: Result Comment: CALC ULATIONS OF ESTIMATED GFR ARE PERFORMED USING THE MDRD STUDY EQUATION FOR THE IDMS-TRACEABLE CREATININE METHODS. CLIN CHEM 2007;53:766-72 Performed By: #### C OAGS #### [facility] [address] [place] [address] GFR-NON AM. >60 Normal >60 [facility] Comment on above: Performed By: #### C OAGS #### [facility] [address] [place] [address] Glucose [Mass/Vol] 95 mg/dL Normal 74 - 99 [facility] Comment on above: Performed By: #### C OAGS #### [facility] [address] [place] [address] HCO3 (Bld) [Moles/Vol] 20 mmol/L Low 21 - 32 [facility] Comment on above: Performed By: #### C OAGS #### [facility] [address] [place] [address] Potassium [Moles/Vol] 4.6 mmol/L Normal 3.5 - 5.3 [facility] Comment on above: Performed By: #### C OAGS #### [facility] [address] [place] [address] Sodium [Moles/Vol] 143 mmol/L Normal 136 - 145 [facility] Comment on above: Performed By: #### C OAGS #### [facility] [address] [place] [address] Urea nitrogen [Mass/Vol] 7 mg/dL Normal 6 - 23 [facility] Comment on above: Performed By: #### C OAGS #### [facility] [address] [place] [address] CBCon 11-06-2018 Erythrocyte distribution width (RBC) [Ratio] 16.3 % High 11.5 - 14.5 [facility] Comment on above: Performed By: #### B MP #### [facility] [address] [place] [address] Hematocrit (Bld) [Volume fraction] 35.5 % Low 36.0 - 46.0 [facility] Comment on above: Performed By: #### B MP #### [facility] [address] [place] [address] Hemoglobin (Bld) [Mass/Vol] 10.8 g/dL Low 12.0 - 16.0 [facility] Comment on above: Performed By: #### B MP #### [facility] [address] [place] [address] MCHC (RBC) [Mass/Vol] 30.4 g/dL Low 32.0 - 36.0 [facility] Comment on above: Performed By: #### B MP #### [facility] [address] [place] [address] MCV (RBC) [Entitic vol] 95 fL Normal 80 - 100 [facility] Comment on above: Performed By: #### B MP #### [facility] [address] [place] [address] Nucleated RBC/100 WBC (Bld) [Ratio] 0.0 /100 WBC Normal 0.0-0.0 [facility] Comment on above: Performed By: #### B MP #### [facility] [address] [place] [address] Platelets (Bld) [#/Vol] 289 10*3/uL Normal 150 - 450 [facility] Comment on above: Performed By: #### B MP #### [facility] [address] [place] [address] RBC (Bld) [#/Vol] 3.75 x10E12/L Low 4.00 - 5.20 [facility] Comment on above: Performed By: #### B MP #### [facility] [address] [place] [address] WBC (Bld) [#/Vol] 5.9 10*3/uL Normal 4.4 - 11.3 [facility] Comment on above: Performed By: #### B MP #### [facility] [address] [place] [address] Daily Progress Note-Colorect al Surgeryon 11-06-2018 Daily Progress Note-Colorectal Surgery Service: Colorectal Surgery Subjective Data: YAA BENITEZ is a 68 year old Female who is Hospital Day # 5 and POD #4 for Open sigmoid Colectomy. No acute events overnight. Denies any N/V. Having flatus and BMs. Afebrile, hemodynamically stable. Objective Data: Objective Information: T PRBPSpO2 Value36.66794427/9596% Date/Time11/06 8: 8: 8: 8: 8:28 Range(36.6C - 37C ) (81 - 101 ) (16 - 18 ) (121 - 153 )/ (78 - 97 ) (96% - 97% ) Highest temp of 37 C was recorded at 11/05 19:20 ---- Intake and Output ----- Mn/Dy/Year TimeIntakeOutputNet Nov 06, 2018 6:00 [id number] Nov 05, 2018 10:00 [id number] Nov 05, 2018 2:00 [id number] The Intake and Output Totals for the last 24 hours are: IntakeOutputNet [id number] Physical Exam: Constitutional: NAD, laying in bed [...] Nicolas Garay MD PGY1 [place] [address] Signature/Cosignature/Att estation: Note Completion: Attending AttestationI saw [...] the note. I personally evaluated the patient [id number] Electronic Signatures: Marcelino Calero) (Signed 06-Nov-2018 11:04) Authored: Signature/Cosignature/Att estation Co-Signer: Service, Subjective Data, Objective Data, Assessment and Plan, Signature/Cosignature/Att estation Joshua Garay (Resident)) (Signed 06-Nov-2018 10:02) Authored: Service, Subjective Data, Objective Data, Assessment and Plan, Signature/Cosignature/Att estation Last Updated: 06-Nov-2018 11:04 by Marcelino Calero) [facility] Discharge [id number] Discharge Profile2 Discharge Orders: Anticipated Discharge Date: Anticipated Discharge [id number] Problem List: Admitting Dx: History of diverticulitis: [...] Withsoap and water, May shower daily Cover Ufim2f3 gauze Tape Withpaper tape Instructionsno lotions, creams, [...] or concerns, call Dr. Calero's office at: [phone], option 2. This phone number is answered [...] 17:09:29 Name/Contact Info for Questions About [facility] Col[facility] Service, [place] Service, pager [phone] Appointments: Follow-Up Appointment 01: Physician/Dept/ServiceMs. Shruthi Calero - Colorectal Surgeon Call to Schedule in2 weeks Scheduled Date/[id number] 11:30 [facility] [address] [place] [address] Phone [phone], option 2 CommentsPostoperative follow-up appointment Electronic Signatures: Sparkle Camacho CNP (DISPATCH MACHINE RUNNER-GOLD LEAF GILDER) (Signed 07-Nov-2018 10:32) Authored: Discharge Orders, Hospital Course (Home Care/Gold Form), Provider FINAL REVIEW of Orders, Appointments Joshua Garay (Resident)) (Signed 06-Nov-2018 13:07) Authored: Discharge Orders, Hospital Course (Home Care/Gold Form), Provider FINAL REVIEW of Orders, Appointments, Gold Form - Class A Lineman Summary Last Updated: 07-Nov-2018 10:32 by Sparkle Camacho CNP (DISPATCH MACHINE RUNNER-GOLD LEAF GILDER) Normal [facility] MAGNESIUMon 11-06-2018 Magnesium [Mass/Vol] 2.23 mg/dL Normal 1.60 - 2.40 [facility] Comment on above: Performed By: #### C OAGS #### [facility] [address] [place] [address] BASIC METABOLIC PANELon 10-15 Anion gap [Moles/Vol] 10 mmol/L Normal 10 - 20 [facility] Comment on above: Performed By: #### B MP #### [facility] [address] [place] [address] Calcium [Mass/Vol] 8.5 mg/dL Low 8.6 - 10.6 [facility] Comment on above: Performed By: #### B MP #### [facility] [address] [place] [address] Chloride [Moles/Vol] 112 mmol/L High 98 - 107 [facility] Comment on above: Performed By: #### B MP #### [facility] [address] [place] [address] Creatinine [Mass/Vol] 0.57 mg/dL Normal 0.50 - 1.05 [facility] Comment on above: Performed By: #### B MP #### [facility] [address] [place] [address] GFR- AM. >60 Normal >60 [facility] Comment on above: Result Comment: CALC ULATIONS OF ESTIMATED GFR ARE PERFORMED USING THE MDRD STUDY EQUATION FOR THE IDMS-TRACEABLE CREATININE METHODS. CLIN CHEM 2007;53:766-72 Performed By: #### B MP #### [facility] [address] [place] [address] GFR-NON AM. >60 Normal >60 [facility] Comment on above: Performed By: #### B MP #### [facility] [address] [place] [address] Glucose [Mass/Vol] 104 mg/dL High 74 - 99 [facility] Comment on above: Performed By: #### B MP #### [facility] [address] [place] [address] HCO3 (Bld) [Moles/Vol] 23 mmol/L Normal 21 - 32 [facility] Comment on above: Performed By: #### B MP #### [facility] [address] [place] [address] Potassium [Moles/Vol] 3.0 mmol/L Low 3.5 - 5.3 [facility] Comment on above: Performed By: #### B MP #### [facility] [address] [place] [address] Sodium [Moles/Vol] 142 mmol/L Normal 136 - 145 [facility] Comment on above: Performed By: #### B MP #### [place] [id number] [place] [address] Urea nitrogen [Mass/Vol] 6 mg/dL Normal 6 - 23 [facility] Comment on above: Performed By: #### B MP #### [facility] [address] [place] [address] CBCon 11-05-2018 Erythrocyte distribution width (RBC) [Ratio] 15.9 % High 11.5 - 14.5 [facility] Comment on above: Performed By: #### B MP #### [facility] [address] [place] [address] Hematocrit (Bld) [Volume fraction] 33.4 % Low 36.0 - 46.0 [facility] Comment on above: Performed By: #### B MP #### [facility] [address] [place] [address] Hemoglobin (Bld) [Mass/Vol] 10.3 g/dL Low 12.0 - 16.0 [facility] Comment on above: Performed By: #### B MP #### [facility] [address] [place] [address] MCHC (RBC) [Mass/Vol] 30.8 g/dL Low 32.0 - 36.0 [facility] Comment on above: Performed By: #### B MP #### [facility] [address] [place] [address] MCV (RBC) [Entitic vol] 95 fL Normal 80 - 100 [facility] Comment on above: Performed By: #### B MP #### [facility] [address] [place] [address] Nucleated RBC/100 WBC (Bld) [Ratio] 0.0 /100 WBC Normal 0.0-0.0 [facility] Comment on above: Performed By: #### B MP #### [facility] [address] [place] [address] Platelets (Bld) [#/Vol] 234 10*3/uL Normal 150 - 450 [facility] Comment on above: Performed By: #### B MP #### [facility] [address] [place] [address] RBC (Bld) [#/Vol] 3.52 x10E12/L Low 4.00 - 5.20 [facility] Comment on above: Performed By: #### B MP #### [facility] [address] [place] [address] WBC (Bld) [#/Vol] 6.3 10*3/uL Normal 4.4 - 11.3 [facility] Comment on above: Performed By: #### B MP #### [facility] [address] [place] [address] Daily Progress Note-Anesthes ia - Acute Painon [...] ----- Mn/Dy/Year TimeIntakeOutputNet Nov 05, 2018 6:00 [id number] Nov 04, 2018 10:00 [id number] Nov 04, 2018 2:00 [id number] The Intake and Output Totals for the last 24 hours are: IntakeOutputNet [id number] Physical Exam: Constitutional: Well developed, awake/alert/oriented x3, [...] Rebecca Pickard CA2/PGY3 [place] [address] ph [phone] Signature/Cosignature/Att estation: Note Completion: Attending AttestationI saw [...] the note. I personally evaluated the patient [id number] Electronic Signatures: Jaocb Walker) (Signed 08-Nov-2018 17:09) Authored: Signature/Cosignature/Att estation Co-Signer: Service, Subjective Data, Objective Data, Assessment and Plan, Signature/Cosignature/Att estation Rebecca Pickard (Resident)) (Signed 05-Nov-2018 08:50) Authored: Service, Subjective Data, Objective Data, Assessment and Plan, Signature/Cosignature/Att estation Last Updated: 08-Nov-2018 17:09 by Jacob Walker) Normal [facility] Daily Progress Note-Colorect al Surgeryon [...] ----- Mn/Dy/Year TimeIntakeOutputNet Nov 05, 2018 6:00 [id number] Nov 04, 2018 10:00 [id number] Nov 04, 2018 2:00 [id number] The Intake and Output Totals for the last 24 hours are: IntakeOutputNet [id number] T PRBPSpO2 Value36.88602619/8997% Date/Time11/05 7: 7: 7: 7: 7:39 Range(36.8C [...] Fredo Askew MD Colorectal Surgery [place] pager #[phone] Signature/Cosignature/Att estation: Note Completion: Attending AttestationI reviewed [...] Updated: 06-Nov-2018 08:09 by Marcelino Calero) Normal [facility] Daily Progress Note-Anesthes ia - [...] ----- Mn/Dy/Year TimeIntakeOutputNet Nov 04, 2018 6:00 [id number] Nov 03, 2018 10:00 [id number] Nov 03, 2018 2:00 [id number] The Intake and Output Totals for the last 24 hours are: IntakeOutputNet [id number] Physical Exam: Constitutional: Well developed, awake/alert/oriented x3, [...] Rebecca Pickard CA2/PGY3 [place] [address] ph [phone] Signature/Cosignature/Att estation: Note Completion: Attending AttestationI saw [...] the note. I personally evaluated the patient [id number] Comments/ Additional Findings i saw this patient at 9:10 am Electronic Signatures: Jacob Walker) (Signed 04-Nov-2018 14:42) Authored: Signature/Cosignature/Att estation Co-Signer: Service, Subjective Data, Objective Data, Assessment and Plan, Signature/Cosignature/Att estation Rebecca Pickard (Resident)) (Signed 04-Nov-2018 10:43) Authored: Service, Subjective Data, Objective Data, Assessment and Plan, Signature/Cosignature/Att estation Last Updated: 04-Nov-2018 14:42 by Jacob Walker) Normal [facility] Daily Progress Note-Colorect al Surgeryon [...] ----- Mn/Dy/Year TimeIntakeOutputNet Nov 04, 2018 6:00 [id number] Nov 03, 2018 10:00 [id number] Nov 03, 2018 2:00 [id number] The Intake and Output Totals for the last 24 hours are: IntakeOutputNet [id number] T PRBPSpO2 Value36.53383605/8496% Date/Time11/04 7: 7: 7: 7: 7:28 Range(36.3C [...] Yoo Ma, MD Colorectal Surgery [place] pager #[phone] SCIP Measures: Urinary Catheter Removed Post-Op Day [...] Updated: 06-Nov-2018 08:09 by Marcelino Calero) Normal [facility] BASIC METABOLIC PANELon 06-2 Anion gap [Moles/Vol] 14 mmol/L Normal 10 - 20 [facility] Comment on above: Performed By: #### B MP #### [facility] [address] [place] [address] Calcium [Mass/Vol] 9.1 mg/dL Normal 8.6 - 10.6 [facility] Comment on above: Performed By: #### B MP #### [facility] [address] [place] [address] Chloride [Moles/Vol] 108 mmol/L High 98 - 107 [facility] Comment on above: Performed By: #### B MP #### [facility] [address] [place] [address] Creatinine [Mass/Vol] 0.84 mg/dL Normal 0.50 - 1.05 [facility] Comment on above: Performed By: #### B MP #### [facility] [address] [place] [address] GFR- AM. >60 Normal >60 [facility] Comment on above: Result Comment: CALC ULATIONS OF ESTIMATED GFR ARE PERFORMED USING THE MDRD STUDY EQUATION FOR THE IDMS-TRACEABLE CREATININE METHODS. CLIN CHEM 2007;53:766-72 Performed By: #### B MP #### [facility] [address] [place] [address] GFR-NON AM. >60 Normal >60 [facility] Comment on above: Performed By: #### B MP #### [facility] [address] [place] [address] Glucose [Mass/Vol] 105 mg/dL High 74 - 99 [facility] Comment on above: Performed By: #### B MP #### [facility] [address] [place] [address] HCO3 (Bld) [Moles/Vol] 24 mmol/L Normal 21 - 32 [facility] Comment on above: Performed By: #### B MP #### [facility] [address] [place] [address] Potassium [Moles/Vol] 3.6 mmol/L Normal 3.5 - 5.3 [facility] Comment on above: Performed By: #### B MP #### [facility] [address] [place] [address] Sodium [Moles/Vol] 142 mmol/L Normal 136 - 145 [facility] Comment on above: Performed By: #### B MP #### [facility] [address] [place] [address] Urea nitrogen [Mass/Vol] 21 mg/dL Normal 6 - 23 [facility] Comment on above: Performed By: #### B MP #### [facility] [address] [place] [address] CBCon 11-03-2018 Erythrocyte distribution width (RBC) [Ratio] 16.1 % High 11.5 - 14.5 [facility] Comment on above: Performed By: #### B MP #### [facility] [address] [place] [address] Hematocrit (Bld) [Volume fraction] 37.4 % Normal 36.0 - 46.0 [facility] Comment on above: Performed By: #### B MP #### [facility] [address] [place] [address] Hemoglobin (Bld) [Mass/Vol] 11.8 g/dL Low 12.0 - 16.0 [facility] Comment on above: Performed By: #### B MP #### [facility] [address] [place] [address] MCHC (RBC) [Mass/Vol] 31.6 g/dL Low 32.0 - 36.0 [facility] Comment on above: Performed By: #### B MP #### [facility] [address] [place] [address] MCV (RBC) [Entitic vol] 94 fL Normal 80 - 100 [facility] Comment on above: Performed By: #### B MP #### [facility] [address] [place] [address] Nucleated RBC/100 WBC (Bld) [Ratio] 0.0 /100 WBC Normal 0.0-0.0 [facility] Comment on above: Performed By: #### B MP #### [facility] [address] [place] [address] Platelets (Bld) [#/Vol] 244 10*3/uL Normal 150 - 450 [facility] Comment on above: Performed By: #### B MP #### [facility] [address] [place] [address] RBC (Bld) [#/Vol] 3.96 x10E12/L Low 4.00 - 5.20 [facility] Comment on above: Performed By: #### B MP #### [facility] [address] [place] [address] WBC (Bld) [#/Vol] 8.1 10*3/uL Normal 4.4 - 11.3 [facility] Comment on above: Performed By: #### B #### [facility] [address] [place] [address] Daily Progress Note-Anesthes ia - Painon 11-03-2018 Daily Progress Note-Anesthesia - Pain Service: Anesthesia - Pain Subjective Data: YAA BENITEZ is a 68 year old Female who is Hospital Day # 2 and POD #1 for Open sigmoid Colectomy. no events overnight. Objective Data: Objective Information: ---- Intake and Output ----- Mn/Dy/Year TimeIntakeOutputNet Nov 03, 2018 6:00 [id number] Nov 02, 2018 10:00 [id number] Nov 02, 2018 2:00 [id number] The Intake and Output Totals for the last 24 hours are: IntakeOutputNet [id number] Physical Exam: Constitutional: Well developed, awake/alert/oriented x3, [...] primary - pain 08/23 today Acute pain 28229 Signature/Cosignature/Att estation: Note Completion: Attending AttestationI saw [...] the note. I personally evaluated the patient [id number] Electronic Signatures: Jacob Walker) (Signed 04-Nov-2018 08:24) Authored: Signature/Cosignature/Att estation Co-Signer: Service, Subjective Data, Objective Data, Assessment and Plan, Signature/Cosignature/Att estation Nicholas Hebert (Resident)) (Signed 03-Nov-2018 11:52) Authored: Service, Subjective Data, Objective Data, Assessment and Plan, Signature/Cosignature/Att estation Last Updated: 04-Nov-2018 08:24 by Jacob Walker) Normal [facility] Daily Progress Note-Colorect al Surgeryon [...] ----- Mn/Dy/Year TimeIntakeOutputNet Nov 03, 2018 2:00 [id number] Nov 03, 2018 6:00 [id number] Nov 02, 2018 10:00 [id number] The Intake and Output Totals for the last 24 hours are: IntakeOutputNet [id number] T PRBPSpO2 Value36.70897336/7395% Date/Time11/03 15: 15: 15: 15: 15:16 Range(36.3C [...] Mojica MD PGY-4 Colorectal Surgery [place] pager #[phone] Signature/Cosignature/Att estation: Note Completion: Attending AttestationI saw [...] the note. I personally evaluated the patient [id number] Electronic Signatures: Marcelino Calero) (Signed 06-Nov-2018 08:07) Authored: Signature/Cosignature/Att estation Co-Signer: Service, Subjective Data, Objective Data, Assessment and Plan, Signature/Cosignature/Att estation Gabbi Mojica (Resident)) (Signed 03-Nov-2018 19:58) Authored: Service, Subjective Data, Objective Data, Assessment and Plan, Signature/Cosignature/Att estation Last Updated: 06-Nov-2018 08:07 by Marcelino Calero) Normal [facility] Discharge Planning Noteon Discharge Planning Note Patient Learning: Factors that Impact Ability to Learnvisual problems(1) Other Factors: Functional Screen: In the recent/past 2-4 weeks, patient or family have noticedno issues that require a rehabilitation consult at this time(2) Discharge Planning: Discharge [id number], Ordnance Engineering Technician Note: Spoke with patient in regards to discharge planning. Patient states that prior to admission she was independent with ADLs. Patient lives at home with her . Patient's demographics were verified. Patient has [place] Medicare. Patient's PCP is Dr. Perry. Patient does not have any assistive devices. Patient is not active with Home Care. No needs identified at discharge. Asiya Chaparro, FRANNY Ordnance Engineering Technician 11/06/18 @ 1415 Transitional Care Coordination Progress Note: Patient discussed during interdisciplinary rounds. Team members present: GOLD LEAF GILDER, Special Education Paraprofessional, SW, TCC and PCN Plan per Medical/Surgical team: POD #4 open sigmoid colectomy. Advancing diet. Encourage ambulation Discharge disposition: PT eval needed, but anticipating home Potential Barriers: none ADOD: 11/07 Asuncion Ramirez RNCC [id number] 11/07/18 @ 1123 Pt transported off floor [...] 14:34) Authored: Discharge Planning Note Asiya Chaparro (SALES CLERK) (Signed 03-Nov-2018 16:46) Authored: Discharge Planning Note Last Updated: 07-Nov-2018 11:32 by Summer Pope (DENIS) References: 1. Data Referenced From 5. Education 11/02/2018 4:41 PM 2. Data Referenced From Admission Risk Screen - Adult 11/02/2018 4:41 PM Normal [facility] ABO/RH GROUP TESTon 11-03-19 ABO TYPE O Normal [facility] Comment on above: Performed By: #### V ERAB #### [facility] [address] [place] [address] RH TYPE Positive Normal [facility] Comment on above: Performed By: #### V ERAB #### [facility] [address] [place] [address] Admission Risk Screen - Adul ton 11-02-2018 Admission Risk Screen - Adult Allergies: Allergies: Neosporin: Unknown Flagyl: Unknown ciprofloxacin: Unknown Patient Verification: New W ID Band Applied in my Departmentno Type of ID Patient is WearingW wristband, but not applied here Patient Transferred from Other Facility ([facility], [facility],etc)no Patient Identity Verified Bypatient ID Band FULL Name, include Middle, spelling matches patient's ID used for verificationyes ID Band Matches Patient ID used for Verficationyes ID Band MRN Matches EMR MRNyes Advance Directive: Advance Directive Medicalyes (1) Advance Directive typeLiving Will, Durable Power of Boarding House Manager for Healthcare, Declaration for Mental Health Treatment(1) Living Will AvailabilityLiving Will not available now Living Will [id number] Durable Power of Boarding House Manager AvailabilityDPOA not available now Durable Power of Boarding House Manager [id number] Durable Power of Boarding House Manager contact (name and number)sushantdavid benitez Declaration for Mental Health Treatment Availabilitynot available now Declaration of Mental Health Treatment [id number] Falls Screen: Type of Assessmentadmission Moderate Risk Factorsaltered elimination High Risk Factorsgait instability Risk for Injury Associated with Fallcoagulation blood thinners (Coumadin, heparin gtt), coagulopathy, risk of surgical complications post surgery (recent abdominal, thoracic surgery, lower limb amputation) Fall Risk Conclusionhigh falls risk with risk for associated injury [place] Safety InterventionsWDL *orient to call system *instruct [...] Learning Preferencesverbal instruction Cultural Considerationsnone Developmental Considerationsnone Mormon Considerationsnone Learning Assessment (Other Learner): Other learner [...] Spiritual Screen: Are there any cultural, spiritual, muslim practices/values/needs that are important for us to knowno CAGE: Is this an injured patient at a Trauma Center ([facility]/[place]/ [place]): no Vaccinations: Vaccination - Influenza Vaccination Screen: [...] - Preop v2 11/02/2018 6:28 AM Normal [facility] Clinical Event [id number]-jo Checkon 11-02-2018 Clinical Event Wpmi-Fqht-uq Check Event: Topic: Post-op Check Details: Surgery [...] Henry MD ANEUDY Surgery Night Coverage Colorectal [address] S[address] Onc 24139 Vascular [address] Electronic Signatures: Jairo Henry ( (Resident)) (Signed 02-Nov-2018 20:21) Authored: Event Last Updated: 02-Nov-2018 20:21 by Jairo Henry ( (Resident)) Normal [facility] Consult-Anesthesia - Painon 11-02-2018 Consult-Anesthesia [...] - pain meds per primary Acute pain 64186 Signature/Cosignature/Att estation: Note Completion: Attending AttestationI saw [...] the note. I personally evaluated the patient [id number] Electronic Signatures: Jacob Walker) (Signed 04-Nov-2018 08:23) Authored: Service, Signature/Cosignature/Att estation Co-Signer: Service, History of Present Illness, Allergies, Objective, Assessment/Recommendation s, Signature/Cosignature/Att estation Nicholas Hebert (Resident)) (Signed 02-Nov-2018 15:41) Authored: Service, History of Present Illness, Allergies, Objective, Assessment/Recommendation s, Signature/Cosignature/Att estation Last Updated: 04-Nov-2018 08:23 by Jacob Walker) Normal [facility] Patient Profile - Adult v2on 11-02-2018 Patient Profile - Adult v2 Profile: Initial Info: How to be AddressedPam(1) Spoken Language PreferredEnglish (1) Are you currently using the Personal Electronic Health Record or Authentixno (1) Stated Reason for Admissionsurgery Arrived FromOR Patient Belongingsnone Medications Brought to Hospitalno General Health: Weight in kg60.3 kilogram(s) Weight in qec475 pound(s) Height in feet5 feet Height in [...] Withspouse Living Arrangementshouse Resource/Environmental Concernsnone [facility]ticipated [facility] Anticipated at Transitionnone Significant [...] - Preop v2 11/02/2018 6:28 AM Normal [facility] Patient Profile - Preop v2on 11-02-2018 Patient Profile - Preop v2 Profile: Initial Info: How to be AddressedPam Spoken Language PreferredEnglish Source of Informationpatient Are you currently using the Personal Electronic Health Record or Authentixno Are you interested in learning more about Hacker SchoolReeher for the management of your healthnot at this time Stated Reason for Admissionsigmoid colectomy Primary Contact Name and NumberJerry Limitations on Visitors/Phone Callsnone Patient [id number] Medications Brought to Hospitalno General Health: Weight in kg59.8 kilogram(s) Weight in lpx845 pound(s) Weight Methodstated Height in cm165.1 centimeter(s) [...] Advance Directive typeLiving Will, Durable Power of Boarding House Manager for Healthcare, Declaration for Mental Health Treatment Living Will AvailabilityLiving Will not available now Durable Power of Boarding House Manager AvailabilityDPOA not available now During the past [...] Preferencesaudio; verbal instruction Cultural Considerationsnone Developmental Considerationsnone Mormon Considerationsnone Other learner availableno Falls RiskPatient location auto qualifies him/her for HIGH RISK. Are there any cultural, spiritual, muslim practices/values/needs that are important for us to knowno Do you want a visit/item from [facility] Would you like your Staff Analyst/Rubber Insulator notifiedno Pain Scalenumerical 0-10 Pain Scale Educationteaching [...] 02-Nov-2018 06:35 by Betty Muller (RN) Normal [facility] Preop Checkliston 11-02-2018 Preop Checklist Preop Checklist: Preop Checklist: Arrival [id number] Arrival Time06:25 Procedure Typesigmoid colectomy NPO [id number] 00:00 ID Band Onyes Allergy Bandyes Consent [...] 02-Nov-2018 06:27 by Betty Muller (RN) Normal [facility] Surgical Pathology Depar tmenton 11-02-2018 [facility] Surgical Pathology Department Name YAA BENITEZ Pathologist: ELISE PARMAR M.D. Date of Procedure: 11/02/2018 Date Received: 11/02/2018 Date Reported 11/06/2018 Submitting Physician: MARCELINO CALERO MD Location: [facility] External # FINAL DIAGNOSIS A. [...] is unremarkable. Tissue is submitted to HTPF. Clinical Programmer sections are submitted in 5 cassettes. SPC Summary of Cassettes: Specimen Label Site A 1-4 diverticula 5 possible lymph node spc/11/02/2018 Normal [facility] Comment on above: Performed By: #### C OAGS #### [facility] [address] [place] [address] TYPE + SCREENon 10-24-2018 ABO TYPE O Normal [facility] Comment on above: Performed By: #### T +S #### [facility] [address] [place] [address] RH TYPE Positive Normal [facility] Comment on above: Performed By: #### T +S #### [place] [address] [place] [address] BASIC METABOLIC PANELon 10-14 Anion gap [Moles/Vol] 16 mmol/L Normal 10 - 20 [facility] Comment on above: Performed By: #### B MP #### [facility] [address] [place] [address] Calcium [Mass/Vol] 10.3 mg/dL Normal 8.6 - 10.6 [facility] Comment on above: Performed By: #### B MP #### [facility] [address] [place] [address] Chloride [Moles/Vol] 103 mmol/L Normal 98 - 107 [facility] Comment on above: Performed By: #### B MP #### [facility] [address] [place] [address] Creatinine [Mass/Vol] 1.03 mg/dL Normal 0.50 - 1.05 [facility] Comment on above: Performed By: #### B MP #### [facility] [address] [place] [address] GFR- AM. 64 mL/min/1.73m2 Normal >60 [facility] Comment on above: Result Comment: CALC ULATIONS OF ESTIMATED GFR ARE PERFORMED USING THE MDRD STUDY EQUATION FOR THE IDMS-TRACEABLE CREATININE METHODS. CLIN CHEM 2007;53:766-72 Performed By: #### B MP #### [facility] [address] [place] [address] GFR-NON AM. 53 mL/min/1.73m2 Abnormal >60 [facility] Comment on above: Performed By: #### B MP #### [facility] [address] [place] [address] Glucose [Mass/Vol] 81 mg/dL Normal 74 - 99 [facility] Comment on above: Performed By: #### B MP #### [facility] [address] [place] [address] HCO3 (Bld) [Moles/Vol] 24 mmol/L Normal 21 - 32 [facility] Comment on above: Performed By: #### B MP #### [facility] [address] [place] [address] Potassium [Moles/Vol] 4.6 mmol/L Normal 3.5 - 5.3 [facility] Comment on above: Performed By: #### B MP #### [facility] [address] [place] [address] Sodium [Moles/Vol] 138 mmol/L Normal 136 - 145 [facility] Comment on above: Performed By: #### B MP #### [facility] [address] [place] [address] Urea nitrogen [Mass/Vol] 21 mg/dL Normal 6 - 23 [facility] Comment on above: Performed By: #### B MP #### [facility] [address] [place] [address] CBCon 10-23-2018 Erythrocyte distribution width (RBC) [Ratio] 15.4 % High 11.5 - 14.5 [facility] Comment on above: Performed By: #### C BC #### [facility] [address] [place] [address] Hematocrit (Bld) [Volume fraction] 47.1 % High 36.0 - 46.0 [facility] Comment on above: Performed By: #### C BC #### [facility] [address] [place] [address] Hemoglobin (Bld) [Mass/Vol] 14.4 g/dL Normal 12.0 - 16.0 [facility] Comment on above: Performed By: #### C BC #### [facility] [address] [place] [address] MCHC (RBC) [Mass/Vol] 30.6 g/dL Low 32.0 - 36.0 [facility] Comment on above: Performed By: #### C BC #### [facility] [address] [place] [address] MCV (RBC) [Entitic vol] 95 fL Normal 80 - 100 [facility] Comment on above: Performed By: #### C BC #### [facility] [address] [place] [address] Nucleated RBC/100 WBC (Bld) [Ratio] 0.0 /100 WBC Normal 0.0-0.0 [facility] Comment on above: Performed By: #### C BC #### [facility] [address] [place] [address] Platelets (Bld) [#/Vol] 351 10*3/uL Normal 150 - 450 [facility] Comment on above: Performed By: #### C BC #### [facility] [address] [place] [address] RBC (Bld) [#/Vol] 4.95 x10E12/L Normal 4.00 - 5.20 [facility] Comment on above: Performed By: #### C BC #### [facility] [address] [place] [address] WBC (Bld) [#/Vol] 5.8 10*3/uL Normal 4.4 - 11.3 [facility] Comment on above: Performed By: #### C BC #### [facility] [address] [place] [address] COAGULATION SCREENon 019 aPTT Coag (Bld) [Time] 33 s Normal 28 - 38 [facility] Comment on above: Result Comment: THE APTT IS NO LONGER USED FOR MONITORING UNFRACTIONATED HEPARIN THERAPY. FOR MONITORING HEPARIN THERAPY, USE THE HEPARIN ASSAY. Performed By: #### C OAGS #### [facility] [address] [place] [address] INR Coag (PPP) [Relative time] 1.0 {INR} Normal 0.9 - 1.1 [facility] Comment on above: Performed By: #### C OAGS #### [facility] [address] [place] [address] PT Coag (PPP) [Time] 11.5 s Normal 9.7 - 12.7 [facility] Comment on above: Performed By: #### C OAGS #### [facility] [address] [place] [address] Initial Visit (Colon and Rec peewee Surgery)on 10-18-2018 Initial Visit (Colon and Rectal Surgery) Chief Complaint NPV, Diverticulitis History of Present Illness Referral: Dr. Zane Goodman ([place]) Yaa Benitez is a 68 y/o F [...] Vital Signs Recorded: 10Oct2018 10:44AM Heart Rate80 Rkzhirmq95 Bcptccoao60 Height5 ft 5 in Pnqzgz828 lb BMI Wpqpyfouxc70.47 BSA Calculated1.67 Physical Exam Constitutional: General appearance: [...] conc (P) 0.40 10 3/mcL Normal 0.15-1.00 [facility] ([place]) Comment on above: Performed By: #### C BC, ADIFF, ANEU ####[address] [place], [place] [address]#### CMP, GFR ####[address] [address] Basophils Auto #/vol (Bld) 0.10 10 3/mcL Normal 0.00-0.19 [facility] ([place]) Comment on above: Performed By: #### C TUAN, ADIFF, ANEU ####Briana [address] [place] [address]#### CMP, GFR ####[address] [address] Basophils/100 WBC Auto (Bld) 1.8 % Normal 0.0-2.5 [facility] ([place]) Comment on above: Performed By: #### C BC, ADIFF, ANEU ####Briana [address] [address]#### CMP, GFR ####[address] [address] Eosinophils Auto #/vol (Bld) 0.10 10 3/mcL Normal 0.00-0.40 [facility] ([place]) Comment on above: Performed By: #### C TUAN ADIFF, ANEU ####[place] [address]#### CMP, GFR ####[address] [address] Eosinophils/100 WBC Auto (Bld) 1.4 % Normal 0.0-7.0 [facility] ([place]) Comment on above: Performed By: #### C CHACORTA DICKERSON, ANEU ####Briana [address] [address]#### CMP, GFR ####[address] [address] Lymphocytes Auto #/vol (Bld) 1.70 10 3/mcL Normal 0.77-3.85 [facility] ([place]) Comment on above: Performed By: #### C TUAN, ADIFF, ANEU ####Bri[address] [place] [address]#### CMP, GFR ####[address] [address] Lymphocytes/100 WBC Auto (Bld) 27.8 % Normal 10.0-50.0 [facility] ([place]) Comment on above: Performed By: #### C BC, ADIFF, ANEU ####[address] [place], [place] [address]#### CMP, GFR ####[facility] [place] [address] Monocytes/100 WBC Auto (Bld) 5.8 % Normal 1.7-13.0 [facility] ([place]) Comment on above: Performed By: #### C BC, ADIFF, ANEU ####[address] [place], [place] [address]#### CMP, GFR ####[facility] [place] [address] Neutrophils/100 WBC Auto (Bld) 63.2 % Normal 37.0-80.0 [facility] ([place]) Comment on above: Performed By: #### C BC, ADIFF, ANEU ####[place] [id number]#### CMP, GFR ####[facility] [place] [address] .GFRon 01-20-2018 GFR Non- 39 ml/min/1.73sqm Normal [facility] ([place]) Comment on above: Result Comment: GFR Population [...] By: #### C BC, ADIFF, ANEU ####Briana [address] [place], [place] [address]#### CMP, GFR ####[place] [address] GFR 48 ml/min/1.73sqm Normal [facility] ([place]) Comment on above: Result Comment: GFR Population [...] By: #### C CHACORTA DICKERSON, ANEU ####[place] [address]#### CMP, GFR ####[place] [address] .NEUABSon 01-20-2018 Neutrophil, Absolute 3.90 10 3/mcL Normal 2.85-6.16 [facility] ([place]) Comment on above: Performed By: #### CHACORTA GONZALES, ANEU ####Briana [address] [place] [address]#### CMP, GFR ####[place] [address] CBCon 01-20-2018 Erythrocyte distribution width Auto Ratio (RBC) 14.2 % Normal 11.5-14.5 [facility] ([place]) Comment on above: Performed By: #### C CHACORTA DICKERSON, ANEU ####[address] [place] [address]#### CMP, GFR ####[place] [address] Hematocrit Auto Volume Fraction (Bld) 44.5 % Normal 37.0-47.0 [facility] ([place]) Comment on above: Performed By: #### CHACORTA GONZALES, ANEU ####[place] [address]#### CMP, GFR ####[place] [address] Hemoglobin mass conc (Bld) 15.3 G/dL Normal 12.0-16.0 [facility] ([place]) Comment on above: Performed By: #### C BC, ADIFF, ANEU ####[place] [address]#### CMP, GFR ####[place] [address] MCH Auto Entitic mass (RBC) 30.9 pg Normal 27.0-31.2 [facility] ([place]) Comment on above: Performed By: #### C BC, ADIFF, ANEU ####[place] [address]#### CMP, GFR ####[place] [address] MCHC Auto mass conc (RBC) 34.4 G/dL Normal 33.0-37.0 [facility] ([place]) Comment on above: Performed By: #### C BC, ADIFF, ANEU ####[place] [address]#### CMP, GFR ####[place] [address] MCV Auto Entitic volume (RBC) 89.7 fL Normal 80.0-94.0 [facility] ([place]) Comment on above: Performed By: #### C BC, ADIFF, ANEU ####[place] [address]#### CMP, GFR ####[place] [address] Platelet mean volume Auto Entitic volume (Bld) 9.1 fL Normal 7.4-10.4 [facility] ([place]) Comment on above: Performed By: #### C BC, ADIFF, ANEU ####[place] [address]#### CMP, GFR ####[address] [address] Platelets Auto #/vol (Bld) 320 10 3/mcL Normal 130-400 [facility] ([place]) Comment on above: Performed By: #### C BCDUCIFF, ANEU ####[address] [place] [id number]#### CMP, GFR ####[place] [address] RBC Auto #/vol (Bld) 4.97 10 6/mcL Normal 4.20-5.40 [facility] ([place]) Comment on above: Performed By: #### C CHACORTA DICKERSON, ANEU ####[place] [address]#### CMP, GFR ####[place] [address] WBC Auto #/vol (Bld) 6.20 10 3/mcL Normal 4.60-10.80 [facility] ([place]) Comment on above: Performed By: #### C CHACORTA DICKERSON, ANEU ####Brianadarrius [address] [address]#### CMP, GFR ####[place] [address] CMPon 01-20-2018 Albumin mass conc 4.0 G/dL Normal 3.4-4.8 [facility] ([place]) Comment on above: Performed By: #### C CHACORTA DICKERSON, ANEU ####Brianadarrius [address]uch[address]Ltxzwyg[address] [address]#### CMP, GFR ####[place] [address] Albumin/Globulin mass ratio 1.2 {ratio} Normal 1.1-2.5 [facility] ([place]) Comment on above: Performed By: #### C BC, ADIFF, ANEU ####Briana [address] [place] [id number]#### CMP, GFR ####[place] [address] ALP enzyme act/vol 44 U/L Normal 40-135 [facility] ([place]) Comment on above: Performed By: #### C BC, ADIFF, ANEU ####[address] [address]#### CMP, GFR ####[address] [address] ALT enzyme act/vol 21 U/L Normal 10-35 [facility] ([place]) Comment on above: Performed By: #### C BC, ADIFF, ANEU ####[place] [id number]#### CMP, GFR ####[address] [address] AST enzyme act/vol 22 U/L Normal 10-40 [facility] ([place]) Comment on above: Performed By: #### C BC, ADIFF, ANEU ####[place] [address]#### CMP, GFR ####[address] [address] Bili Total 0.4 mg/dL Normal 0.2-1.0 [facility] ([place]) Comment on above: Performed By: #### C BC, ADIFF, ANEU ####[place] [address]#### CMP, GFR ####[address] [address] Calcium mass conc 10.0 mg/dL Normal 8.4-10.2 [facility] ([place]) Comment on above: Performed By: #### C BC, ADIFF, ANEU ####[place] [address]#### CMP, GFR ####[place] [address] Chloride molar conc 102 mmol/L Normal 98-107 [facility] ([place]) Comment on above: Performed By: #### C BC, ADIFF, ANEU ####Briana [address] [place] [address]#### CMP, GFR ####[place] [address] CO2 molar conc 26 mmol/L Normal 23-31 [facility] ([place]) Comment on above: Performed By: #### C BC, ADIFF, ANEU ####[address] [place] [address]#### CMP, GFR ####[place] [address] Creatinine mass conc 1.34 mg/dL High 0.55-1.02 [facility] ([place]) Comment on above: Performed By: #### C BC, ADIFF, ANEU ####Briana [address] [place] [address]#### CMP, GFR ####[place] [address] Electrolyte Balance 12.0 mEq/L Normal [facility] ([place]) Comment on above: Performed By: #### C BC, ADIFF, ANEU ####[address] [place] [address]#### CMP, GFR ####[place] [address] Globulin Calculated mass conc (S) 3.3 G/dL Normal [facility] ([place]) Comment on above: Performed By: #### C BC, ADIFF, ANEU ####[address] [place] [address]#### CMP, GFR ####[place] [address] Glucose mass conc 77 mg/dL Low 80-115 [facility] ([place]) Comment on above: Performed By: #### C BC, ADIFF, ANEU ####Briana [address] [place] [address]#### CMP, GFR ####[place] [id number] [place] [address] Potassium molar conc 4.2 mmol/L Normal 3.5-5.1 [facility] ([place]) Comment on above: Performed By: #### C BC, ADIFF, ANEU ####[facility] [place], [place] [address]#### CMP, GFR ####[facility] [place] [address] Protein mass conc 7.3 G/dL Normal 6.4-8.2 [facility] ([place]) Comment on above: Performed By: #### C BC, ADIFF, ANEU ####Briana [address] [place], [place] [address]#### CMP, GFR ####[place] [address] [place] [address] Sodium molar conc 140 mmol/L Normal 136-145 [facility] ([place]) Comment on above: Performed By: #### C BC, ADIFF, ANEU ####Briana [address] [place], [place] [address]#### CMP, GFR ####[address] [address] Urea nitrogen mass conc 26 mg/dL High 7-18 [facility] ([place]) Comment on above: Performed By: #### C BC, ADIFF, ANEU ####Briana [address] [place], [place] [address]#### CMP, GFR ####[place] [address] [place] [address] Urea nitrogen/Creatinine mass ratio 19 ratio Normal 7-27 [facility] ([place]) Comment on above: Performed By: #### C BC, ADIFF, ANEU ####Briana [address] [place], [place] [address]#### CMP, GFR ####[address] [address] Lab Report: Lipid Profileon 06-13-2017 Cholesterol 193 mg/dL Invalid Interpretation Code 200 [facility] Work Phone: [phone] HDL Cholesterol 75 mg/dL Invalid Interpretation Code [facility] Work Phone: [phone] LDL Cholesterol 101 mg/dL Invalid Interpretation Code 0-130 [facility] Work Phone: [phone] Triglyceride 83 mg/dL Invalid Interpretation Code [facility] Work Phone: [phone] very low density lipoproteins 17 mg/dL Invalid Interpretation Code 5-40 [facility] Phone: [phone] Lab Report: Liver Profileon 06-13-2017 Alanine aminotransferase (ALT) 24 U/L Invalid Interpretation Code 13-56 [facility] Work Phone: [phone] Albumin 3.8 g/dL Invalid Interpretation Code 3.2-5.0 [facility] Phone: [phone] Alkaline phosphatase (ALP) 39 U/L Low 45-117 [facility] Work Phone: [phone] Aspartate aminotransferase (AST) 25 U/L Invalid Interpretation Code 15-37 [facility] Phone: [phone] Bilirubin (direct) 0.12 mg/dL Invalid Interpretation Code 0.00-0.30 [facility] Work Phone: [phone] Bilirubin (total) 0.30 mg/dL Invalid Interpretation Code 0.20-1.00 [facility] Phone: [phone] Globulin 3.7 g/dL Invalid Interpretation Code 2.2-4.2 [facility] Phone: [phone] Protein 7.5 g/dL Invalid Interpretation Code 6.4-8.2 [facility] Phone: [phone] Office Visiton 02-10-2017 Documentation of current medications (procedure) Done Invalid Interpretation Code [facility] Phone: [phone] Fall risk assessment No Invalid Interpretation Code [facility] Phone: [phone] Protein mass conc Done Invalid Interpretation Code [facility] Phone: [phone] Clinical Lists Update: Prelo dead mail checker 02-09-2017 Left ventricular Ejection fraction 65 % Invalid Interpretation Code [facility] Phone: [phone] Office Visiton 07-29-2016 Documentation of current medications (procedure) Done Invalid Interpretation Code [facility] Phone: [phone] Lab Report: Basic Metabolic Profile (BMP)on 07-13-2016 Anion gap 9 mmol/L Invalid Interpretation Code 5-15 [facility] Phone: [phone] Anion gap 4 molar conc 9 Invalid Interpretation Code 5-15 [facility] Phone: [phone] BUN/Creatinine Ratio 15.7 RATIO Invalid Interpretation Code 10-20 [facility] Work Phone: [phone] Calcium 9.4 mg/dL Invalid Interpretation Code 8.5-10.1 [facility] Work Phone: [phone] Chloride 104 mmol/L Invalid Interpretation Code 98-107 [facility] Work Phone: [phone] CO2 29.0 mmol/L Invalid Interpretation Code 21.0-32.0 [facility] Work Phone: [phone] CO2 ppres (BldV) 29.0 mmol/L Invalid Interpretation Code 21.0-32.0 [facility] Work Phone: [phone] Creatinine 1.08 mg/dL High 0.55-1.02 [facility] Work Phone: [phone] eGFR (non-black) 54 mL/min/{1.73_m2} Low >60 [facility] Work Phone: [phone] eGFR (non-black) 65 mL/min/{1.73_m2} Invalid Interpretation Code >60 [facility] Work Phone: [phone] EST GFR - AA 65 mL/min Invalid Interpretation Code >60 [facility] Work Phone: [phone] Glucose 78 mg/dL Invalid Interpretation Code 70-110 [facility] Work Phone: [phone] Glucose mass conc 78 mg/dL Invalid Interpretation Code 70-110 [facility] Work Phone: [phone] Potassium 4.2 mmol/L Invalid Interpretation Code 3.5-5.1 [facility] Work Phone: [phone] Sodium 142 mmol/L Invalid Interpretation Code 136-145 [facility] Work Phone: [phone] Urea nitrogen 17 mg/dL Invalid Interpretation Code 7-18 [facility] Work Phone: [phone] Clinical Lists Update: Prelo valeria 06-04-2016 Tobacco smoking status NHIS Tobacco smoking status NHIS Invalid Interpretation Code [facility] Work Phone: [phone] Tobacco smoking status NHIS Never smoker Invalid Interpretation Code [facility] Work Phone: [phone] Tobacco use CPHS Never smoker Invalid Interpretation Code [facility] Work Phone: [phone] Office Visit: [facility] 04-24-20 16 Cholesterol 125 mg/dL Invalid Interpretation Code [facility] Work Phone: [phone] HDL Cholesterol 52 mg/dL Invalid Interpretation Code [facility] Work Phone: [phone] LDL Cholesterol 59 mg/dL Invalid Interpretation Code [facility] Work Phone: [phone] Triglyceride 68 mg/dL Invalid Interpretation Code [facility] Work Phone: [phone] very low density lipoproteins 14 mg/dL Invalid Interpretation Code [facility] Work Phone: [phone] Vital Signs Date Time Vital Sign Value Performing Clinician Yeimi hernandez 04-11-2024 13:16-0500 Body height 165.1 cm No Primary Care Physician [facility] 04-11-2024 13:15-0500 Diastolic blood pressure 82 mm[Hg] No Primary Care Physician [facility] 04-11-2024 13:15-0500 Systolic blood pressure 176 mm[Hg] No Primary Care Physician [facility] 04-11-2024 13:00-0500 Body mass index (BMI) [Ratio] 28.6 kg/m2 No Primary Care Physician [facility] 04-11-2024 13:00-0500 Body weight 78.01 kg No Primary Care Physician [facility] 04-11-2024 13:00-0500 Heart rate 73 /min No Primary Care Physician [facility] 04-11-2024 13:00-0500 Respiratory rate 16 /min No Primary Care Physician [facility] 04-10-2024 10:14-0500 Body mass index (BMI) [Ratio] 28.8 kg/m2 No Primary Care Physician [facility] 04-10-2024 10:14-0500 Body weight 78.58 kg No Primary Care Physician [facility] 11-04-2022 14:20-0400 Body weight 81.[address] Emily Perry Work Phone: [facility] 11-04-2022 14:20-0400 Diastolic blood pressure 102 mm[Hg] Dr. Emily Perry Work Phone: [facility] 11-04-2022 14:20-0400 Heart rate 113 /min Dr. Emily Perry Work Phone: [facility] 11-04-2022 14:20-0400 Respiratory rate 16 /min Dr. Emily Perry Work Phone: [facility] 11-04-2022 14:20-0400 Systolic blood pressure 137 mm[Hg] Dr. Emily Perry Work Phone: [facility] 11-04-2022 11:58-0400 Body height 165.[address] Emily Perry Work Phone: [facility] 11-03-2021 10:57-0400 Body height 165.[address] Emily Perry Work Phone: [facility] Work Phone: 11-03-2021 10:57-0400 Body mass index (BMI) [Ratio] 28.3 kg/m2 Dr. Emily Perry Work Phone: [facility] Work Phone: 11-03-2021 10:57-0400 Body weight 77.[address] Emily Perry Work Phone: [facility] Work Phone: 11-03-2021 10:57-0400 Diastolic blood pressure 88 mm[Hg] Dr. Emily Perry Work Phone: [facility] Work Phone: 11-03-2021 10:57-0400 Systolic blood pressure 136 mm[Hg] Dr. Emily Perry Work Phone: [facility] Work Phone: 11-02-2021 15:06-0400 Body mass index (BMI) [Ratio] 28.6 kg/m2 Dr. Emily Perry Work Phone: [facility] Work Phone: 11-02-2021 15:06-0400 Body weight 78.[address] Emily Perry Work Phone: [facility] Work Phone: 11-02-2021 15:06-0400 Diastolic blood pressure 85 mm[Hg] Dr. Emily Perry Work Phone: [facility] Work Phone: 11-02-2021 15:06-0400 Heart rate 70 /min Dr. Emily Prery Work Phone: [facility] Work Phone: 11-02-2021 15:06-0400 Respiratory rate 16 /min Dr. Emily Perry Work Phone: [facility] Work Phone: 11-02-2021 15:06-0400 Systolic blood pressure 124 mm[Hg] Dr. Emily Prery Work Phone: [facility] Work Phone: 10-06-2021 13:43-0400 Body temperature 97.8 [degF] Dr. Emily Perry Work Phone: [facility] Work Phone: 10-06-2021 13:43-0400 Diastolic blood pressure 90 mm[Hg] Dr. Emily Perry Work Phone: [facility] Work Phone: 10-06-2021 13:43-0400 Heart rate 65 /min Dr. Emily Perry Work Phone: [facility] Work Phone: 10-06-2021 13:43-0400 Respiratory rate 16 /min Dr. Emily Perry Work Phone: [facility] Work Phone: 10-06-2021 13:43-0400 SaO2% (BldA) [Mass fraction] 97 % Dr. Emily Perry Work Phone: [facility] Work Phone: 10-06-2021 13:43-0400 Systolic blood pressure 160 mm[Hg] Dr. Emily Perry Work Phone: [facility] Work Phone: 09-20-2021 15:58-0400 Diastolic blood pressure 88 mm[Hg] Dr. Emily Perry Work Phone: [facility] Work Phone: 09-20-2021 15:58-0400 Systolic blood pressure 152 mm[Hg] Dr. Emily Perry Work Phone: [facility] Work Phone: 09-20-2021 15:42-0400 Body height 165.[address] Emily Perry Work Phone: [facility] Work Phone: 09-20-2021 15:42-0400 Body mass index (BMI) [Ratio] 28.3 kg/m2 Dr. Emily Perry Work Phone: [facility] Work Phone: 09-20-2021 15:42-0400 Body temperature 97.6 [degF] Dr. Emily Perry Work Phone: [facility] Work Phone: 09-20-2021 15:42-0400 Body weight 77.[address] Emily Perry Work Phone: [facility] Work Phone: 09-20-2021 15:42-0400 Heart rate 85 /min Dr. Emily Perry Work Phone: [facility] Work Phone: 09-20-2021 15:42-0400 Respiratory rate 16 /min Dr. Emily Perry Work Phone: [facility] Work Phone: 09-20-2021 15:42-0400 SaO2% (BldA) [Mass fraction] 94 % Dr. Emily Perry Work Phone: [facility] Work Phone: 02-10-2017 14:12-0400 BMI (Body Mass Index) 25.23 kg/m2 [facility] Work Phone: 02-10-2017 14:12-0400 BP Diastolic 76 mm[Hg] [facility] Work Phone: 02-10-2017 14:12-0400 BP Systolic 120 mm[Hg] Leslie Wells [facility] Work Phone: 02-10-2017 14:12-0400 Height 162.56 cm Leslie Wells [facility] Work Phone: 02-10-2017 14:12-0400 Pulse (Heart Rate) 78 /min [facility] Work Phone: 02-10-2017 14:12-0400 Respiratory Rate 16 /min Lesliechristie Wells [facility] Work Phone: 02-10-2017 14:12-0400 Weight 66.68 kg [facility] Work Phone: 07-29-2016 14:23-0400 BP Diastolic 62 mm[Hg] Denise Ngo RN [facility] Work Phone: 07-29-2016 14:23-0400 BP Systolic 108 mm[Hg] Denise Ngo RN [facility] Work Phone: 07-29-2016 14:23-0400 Height 162.56 cm Denise Ngo RN [facility] Work Phone: 07-29-2016 14:23-0400 Pulse (Heart Rate) 80 /min Denise Ngo RN [facility] Work Phone: 07-29-2016 [phone] Respiratory Rate 18 /min Denise Ngo RN [facility] Work Phone: 06-07-2016 12:20-0500 BMI (Body Mass Index) 25.23 kg/m2 Denise Ngo RN [facility] Work Phone: 06-07-2016 12:20-0500 BSA (Body Surface Area) 1.72 m2 Denise Ngo RN [facility] Work Phone: 06-07-2016 12:20-0500 Weight 66.68 kg Denise Ngo RN [facility] Work Phone: Encounters Encounter Date Encounter Type Care Provider Facility Start: 08-20-2024 End: 08-20-2024 ambulatory No Primary Care Physician [facility] Work Phone: Start: 08-20-2024 End: 08-20-2024 Patient encounter procedure Zebulun Beam MARKETING COMPLIANCE MANAGER-C -Radiology, [facility] Work Phone: Start: 08-20-2024 End: 08-20-2024 ambulatory Zebulun Beam VSC Facility:[facility] Start: 07-18-2024 End: 07-18-2024 ambulatory No Primary Care Physician [facility] Work Phone: Start: 07-18-2024 End: 07-18-2024 Patient encounter procedure Zebulun Beam MARKETING COMPLIANCE MANAGER-C -[facility] Start: 07-18-2024 End: 07-18-2024 ambulatory Zebulun Beam VSC Facility:[facility] Start: 07-10-2024 End: 07-10-2024 ambulatory No Primary Care Physician [facility] Work Phone: Start: 07-10-2024 End: 07-10-2024 Patient encounter procedure Zebulun Beam MARKETING COMPLIANCE MANAGER-C -Outpatient [facility] Densitometry Work Phone: Start: 07-10-2024 End: 07-10-2024 ambulatory Zebulun Beam VSC Facility:[facility] Start: 05-24-2024 End: 05-24-2024 Patient encounter procedure Marvel Tirado MARKETING COMPLIANCE MANAGER-C -Laboratory Work Phone: Start: 05-24-2024 End: 05-24-2024 ambulatory Abramroyaasia [facility] Facility:[facility] Start: 04-18-2024 End: 04-18-[address] Skyler Herman MD -Physical Therapy Work Phone: Start: 04-18-2024 End: 04-18-2024 ambulatory Skyler Herman Facility:[facility] Start: 04-11-2024 End: 04-11-2024 Patient encounter procedure Amadeo Zambrano MARKETING COMPLIANCE MANAGER-C -[facility] Work Phone: Start: 04-11-2024 End: 04-11-2024 ambulatory Amadeo Zambrano MARKETING COMPLIANCE MANAGER Facility:[facility] Start: 04-10-2024 End: 04-10-[address] Skyler Herman MD -[facility] Work Phone: Start: 04-10-2024 End: 04-10-2024 ambulatory Skyler Herman Facility:[facility] Start: 04-03-2024 End: 04-03-2024 Patient encounter procedure Shanna Alarcon MARKETING COMPLIANCE MANAGER-C -Laboratory Work Phone: Start: 04-03-2024 End: 04-03-2024 ambulatory Shanna Alarcon NP Facility:[facility] Start: 11-09-2023 ambulatory Jon Chi Diogo Facility:[facility] Start: 11-09-2023 End: 11-09-2023 ambulatory Jon Chi Diogo Facility:[facility] Start: 11-03-2023 End: 11-03-2023 ambulatory Jon Chi Diogo Facility:[facility] Start: 01-06-2023 End: 01-06-[address] Emily Perry Work Phone: [facility] Work Phone: Start: 01-06-2023 End: 01-06-[address] Emily Perry Work Phone: [facility]-Marky [facility]ustamante [facility] Start: 11-04-2022 End: 11-04-[address] Emily Perry Work Phone: [facility] Work Phone: Start: 11-04-2022 End: 11-04-[address] Emily Perry Work Phone: [facility] Start: 03-18-2022 End: 03-18-2022 [facility] Facility:[facility] Start: 03-18-2022 End: 03-18-2022 Patient encounter procedure Jake Barbosa MD Work Phone: Orthopaedics Comment on above: Chronic pain of left knee (Primary Dx); Primary osteoarthritis of left knee Start: 03-01-2022 End: 03-01-2022 ambulatory EMILY TRUDY KYPARUL Facility:[facility] Start: 03-01-2022 End: 03-01-2022 Patient encounter procedure Jake Barbosa MD Work Phone: Orthopaedics Comment on above: Avulsion fracture of distal fibula (Primary Dx) Start: 03-01-2022 End: 03-01-2022 Subsequent hospital visit by physician [facility] Work Phone: Radiology Comment on above: Avulsion fracture of distal fibula [S82.839A] Start: 02-22-2022 Orders Only Jake Barbosa MD Work Phone: Orthopaedics Comment on above: Avulsion fracture of distal fibula (Primary Dx) Start: 02-04-2022 End: 02-04-2022 ambulatory EMILY PERRY Facility:[facility] Start: 02-04-2022 End: 02-04-2022 Patient encounter procedure Jake Barbosa MD Work Phone: Orthopaedics Comment on above: Avulsion fracture of distal fibula (Primary Dx) Start: 01-28-2022 Telephone encounter Jake smyth MD Work Phone: Orthopaedics Comment on above: Patient Update Start: 11-27-2021 End: 11-27-[address] Emily Perry Work Phone: [facility]-Laboratory Start: 11-23-2021 End: 11-23-[address] Emily Perry Work Phone: [facility]-Outpatient Breast Imaging Start: 11-03-2021 End: 11-03-[address] Emily Perry Work Phone: [facility] Start: 11-02-2021 End: 11-02-[address] Emily Perry Work Phone: [facility] Start: 10-06-2021 End: 10-06-[address] Emily Perry Work Phone: [facility] Start: 09-20-2021 End: 09-20-2021 Emergency department patient visit Dr. Emily Perry Work Phone: [facility]-Emergency Department Start: 07-14-2021 Non-patient / Non-visit Dr. Serg Perry Work Phone: [facility] Start: 07-14-2021 End: 07-14-[address] Emily Perry Work Phone: [facility]-Cardiovascula r Services Start: 11-29-2020 End: 11-29-2020 Subsequent hospital visit by physician Xr [facility] Work Phone: Radiology Comment on above: Cough [R05] Start: 01-20-2018 End: 01-21-2018 Patient encounter DEEDEE OLIVER Facility:[facility] Procedures Date Procedure Procedure Detail Performing [...] exam ches t 2 views Amorterrence García APRN.[employer] Work Phone: Start: 07-09-2020 Mammography Jake smyth MD Work Phone: Start: 02-19-2019 Colonoscopy Jake smyth MD Work Phone: Start: 10-24-2018 Antibody screen Comment on above: Performed By: #### T +S #### [facility] [address] [place] [address] Start: 02-10-2017 End: 02-10-2017 REINIER Sotelo MD [...] 07-29-2016 Follow Up Appt 6 months Zane Soteol MD Work Phone: Start: 07-29-2016 End: 07-29-2016 REINIER Sotelo MD Work Phone: Start: 07-29-2016 End: 07-29-2016 Follow Up Appt 6 months Zane Sotelo MD Work Phone: Start: 07-12-2016 End: 07-14-2016 *BMP Shane A Gilliam QUANTOMETER OPERATOR-C Start: 07-12-2016 End: 07-14-2016 *BMP Shane Sahni Gilliam QUANTOMETER OPERATOR-C Start: 06-07-2016 End: 06-07-2016 DJN Shane Sahni Gilliam QUANTOMETER OPERATOR-C Start: 06-07-2016 End: 06-07-2016 Follow Up Appt 6 weeks Shane Gilliam QUANTOMETER OPERATOR- C Start: 06-07-2016 End: 07-23-2016 Xtrnl mobile cv telemetry w/i&report 30 days Shane Sahni Gilliam QUANTOMETER OPERATOR-C Start: 06-07-2016 End: 06-07-2016 DJN Shane Sahni Gilliam QUANTOMETER OPERATOR-C Start: 06-07-2016 End: 06-07-2016 Follow Up Appt 6 weeks Shane Sahni Gilliam QUANTOMETER OPERATOR- C Start: 06-07-2016 End: 07-23-2016 Remote 30 day ecg rev/report Shane Gilliam QUANTOMETER OPERATOR-C Start: 05-16-2006 Lipid 1996 panel - S julieta or Plasma [facility] Work Phone: Plan of Treatment Date Care Activity Detail Author Start: 02-19-2029 Colonoscopy COLONOSCOPY [facility] Start: 02-19-2029 COLORECTAL CANCER SCREENING COLORECTAL CANCER SCREENING [facility] Start: 02-19-2029 Screening for malign ant neoplasm of colon [facility] Start: 04-10-2024 Patient referral [facility] Work Phone: Start: 01-15-2024 Covid-19 Vaccine ( season) Covid-19 Vaccine () [facility] Start: 01-15-2024 Influenza vaccination Influenza Vacc ine (#1) [facility] Start: 05-16-2023 Advance Directive Discussion Advance Directive Discussion [facility] Start: 02-26-2023 RSV Vaccine (1 - 1-d ose 75+ series) RSV Vaccine (1 - 1-dose 75+ series) [facility] Start: 01-14-2022 Influenza vaccination INFLUENZA (#1) [facility] Start: 07-09-2021 Mammography MAMMOGRAM [facility] Start: 05-16-2021 ADVANCE DIRECTIVE DISCUSSION ADVANCE DIRECTIVE DISCUSSION [facility] Start: 05-16-2021 DEPRESSION ASSESSMENT DEPRESSION ASS ESSMENT [facility] Start: 08-16-2017 End: 08-16-2017 Appointment Appointment [facility] Work Phone: Start: 02-10-2017 End: 02-10-2017 Appointment Appointment [facility] Work Phone: Start: 02-10-2017 End: 02-10-2017 *Hepatic Function Panel *Hepatic Function Panel [facility] Work Phone: Start: 02-10-2017 End: 02-10-2017 DJN ANNAN [facility] Work Phone: Start: 02-10-2017 End: 02-10-2017 Follow Up Appt 6 months Follow Up Appt 6 months [facility] Work Phone: Start: 02-10-2017 End: 02-10-2017 Lipid 1996 panel *Lipid Profile CC PCP [facility] Work Phone: Start: 02-10-2017 End: 02-10-2017 *Hepatic Function Panel *Hepatic Function Panel [facility] Work Phone: Start: 02-10-2017 End: 02-10-2017 REINIER CASTILLON [facility] Work Phone: Start: 02-10-2017 End: 02-10-2017 Follow Up Appt 6 months Follow Up Appt 6 months [facility] Work Phone: Start: 02-10-2017 End: 02-10-2017 Lipid panel [AGGREGATE] *Lipid Profile CC PCP [facility] Work Phone: Start: 07-29-2016 End: 07-29-2016 DJN DJN [facility] Work Phone: Start: 07-29-2016 End: 07-29-2016 Follow Up Appt 6 months Follow Up Appt 6 months [facility] Work Phone: Start: 07-29-2016 End: 07-29-2016 DJN DJN [facility] Work Phone: Start: 07-29-2016 End: 07-29-2016 Follow Up Appt 6 months Follow Up Appt 6 months [facility] Work Phone: Start: 07-12-2016 End: 07-14-2016 *BMP *BMP [facility] Work Phone: Start: 07-12-2016 End: 07-14-2016 *BMP *BMP [facility] Work Phone: Start: 06-07-2016 End: 06-07-2016 REINIER HILLS [facility] Work Phone: Start: 06-07-2016 End: 06-07-2016 Follow Up Appt 6 weeks Follow Up Appt 6 weeks [facility] Work Phone: Start: 06-07-2016 End: 06-07-2016 Xtrnl mobile cv telemetry w/i&report 30 days 30 Day Holter Monitor [facility] Work Phone: Start: 06-07-2016 End: 06-07-2016 REINIER HILLS [facility] Work Phone: Start: 06-07-2016 End: 06-07-2016 Follow Up Appt 6 weeks Follow Up Appt 6 weeks [facility] Work Phone: Start: 06-07-2016 End: 06-07-2016 Remote 30 day ecg rev/report 30 Day Holter Monitor [facility] Work Phone: Start: 02-26-2013 Pneumococcal Vaccine : 65+ (1 of 1 - PCV) Pneumococcal Vaccine: 65+ (1 of 1 - PCV) [facility] Start: 02-26-2013 PNEUMOCOCCAL: 65+ (1 - PCV) PNEUMOCOCCAL: 65+ (1 - PCV) [facility] Start: 05-16-2011 Lipid panel Lipid Screening [facility] Start: 05-16-2011 LIPID SCREEN LIPID SCREEN [facility] Start: 05-16-2009 DIABETES SCREEN DIABETES SCREEN [facility] Start: 05-16-2009 Diabetes Screening Diabetes Screenin g [facility] Start: 02-26-1998 SHINGRIX VACCINE (1 of 2) SHINGRIX VACCINE (1 of 2) [facility] Start: 02-26-1993 COLOGUARD (FIT-DNA) COLOGUARD (FIT-D NA) [facility] Start: 02-26-[address] COLONOGRAPHY [facility] Start: 02-26-1993 FECAL OCCULT BLOOD FECAL OCCULT BLOO D [facility] Start: 02-26-1993 Screening for malign ant neoplasm of colon [facility] Start: 02-26-1993 SIGMOIDOSCOPY SIGMOIDOSCOPY Teresa pete [facility] Start: 02-26-1967 Urine microalbumin profile [facility] Start: 02-26-1966 Anxiety Screening Anxiety Screening [facility] Start: 02-26-1966 Depression Screening Depression Scre ening [facility] Start: 02-26-1966 HEPATITIS C SCREENING HEPATITIS C [facility] Start: 02-26-1966 Hepatitis C screening Hepatitis C [facility] Start: 1960 Adult depression screening assessment DEPRESSION SCREENING [facility] Start: 1950 COVID-19 VACCINE (#1) COVID-19 VACCI NE (#1) [facility] Blood chemistry [facility] Work Phone: Patient Education ED Shoulder Sprain [facility] Work Phone: Patient referral [facility] Work Phone: End: 03-24-2023 XR ANKLE GENERAL 3V AP/LAT/OBL RIGHT XR ANKLE GENERAL 3V AP/LAT/OBL RIGHT Radiology Routine Avulsion fracture of distal fibula 1 Occurrences starting 02/22/2022 until 03/24/2023 [facility] Work Phone: Comment on above: 1 Occurrences starti ng 02/22/2022 until 03/24/2023 End: 03-01-2022 XR ANKLE GENERAL 3V AP/LAT/OBL RIGHT [facility] Work Phone: Comment on above: 1 Occurrences starti ng 03/01/2022 until 03/01/2022 [facility] Payers Date Payer Category Payer Self-pay [id number] 2018 Medicare MMO MEDICARE MMO MEDADVANTAGE PPO [id number] 2018-Present [phone] [address] [place] [address] PPO [id number] 2015 Medicare [id number] Unknown [id number] 62 Unknown [id number] 62 Unknown [id number] 62 Unknown [id number] 62 Unknown [id number] 62 Unknown [id number] 62 Unknown [id number] 62 Unknown [id number] 62 Unknown [id number] 62 Unknown [id number] 62 Unknown [id number] 62 Unknown [id number] 62 Social History Date Type Detail Facility Start: 09-20-2021 End: 11-04-2022 Tobacco smoking status LAIS Unknown if ever smoked [facility] Start: 09-07-2018 None [facility] Start: 09-07-2018 Spouse/ Signif icant Other [facility] Start: 10-27-2018 Non-smoker [facility] Start: 1950 Sex Assigned At Female W [facility] Start: 11-14-2013 End: 11-04-2022 Tobacco smoking status LAIS Never smoked tobacco [facility] Work Phone: Start: 11-14-2013 Tobacco use and exposure Smokeless tobacco non-user [facility] Work Phone: Start: 11-29-2020 End: 04-19-2022 Alcohol intake Current non-drinker of alcohol (finding) [facility] Start: 1950 Sex Assigned At Not on file [facility] Start: 01-18-2022 End: 01-28-2022 Exposure to SARS-CoV-2 (event) Unable to assess [facility] Work Phone: Start: 10-30-2020 End: 03-18-2022 Exposure to SARS-CoV-2 (event) Not sure [facility] Start: 04-20-2020 End: 11-29-2020 History of Social function [facility] Start: 04-20-2020 End: 11-29-2020 Tobacco use panel [facility] National Score (1-100), lower number is lower risk Not on file [facility] Start: 07-24-2024 End: 08-23-2024 Sex Female (finding) [facility] Clinical Notes 11-29-2020 to 08-20-2024 Note Date & Type Note Facility 08-20-2024 Radiology Diagnostic study note [facility] Imaging Services [address] [place], [place] [id number] Shoulder min 2 Views MR#: [id number] Acct: [id number] Name: YAA BENITEZ Rep #: [id number] : 1950 F 74 From: Cristofer Foster DO PCP: Marvel Tirado [facility] MARKETING COMPLIANCE MANAGER-C Status: REG CLI Study:Shoulder min 2 Views Date of Exam: 08/20/24 Exam# [id number] Ordering Dr: Liam Tirado [facility] MARKETING COMPLIANCE MANAGER-C PROCEDURE: Right shoulder radiographs, four views 08/20/2024 [...] acromioclavicular joint. Reading Location: [facility] CC: Marvel [facility] MARKETING COMPLIANCE MANAGER-C Beam ~ Model Making Supervisor: Signed [facility] 04-10-2024 Evaluation note Diagnosis Onset Date Resolution Greater trochanteric bursitis of left hip acute April 102023 10:10am Left hip pain acute April 102023 10:10am Essential hypertension chronic No vember 2023 12:57pm Hyperlipidemia chronic March 172023 12:57pm SVT (supraventricular tachycardia) chronic April 11 12:57pm [facility] Work Phone: [phone] 126-943911-03-2022 NoteHNO ID: [id number] Author: Jake Barbosa MD Service: ? Author Type: Physician Type: Progress Notes Filed: 04/19/2022 7:42 AM Note Text: Jake Barbosa MD Department of Orthopaedics Orthopaedics [address] [facility] [address] Dept: [phone] Dept March 18, 2022 CHIEF COMPLAINT: Established [...] Flagyl [Metronidazole], Polymyxin [Bacitracin-Polymyxin B], and Neosporin [Vnwyxgbc-Wcyvscvfel-Gbuihgvqj] ROS: General (negative for fatigue, malaise, weight loss/gain) HEENT (negative for headache, earache, recent vision changes, sinus pain, sore throat) Respiratory (no recent shortness of breath, hemoptysis) CV (negative for chest tightness, palpitations) Musculoskeletal (see HPI) Psych (no depression, anxiety) Jake Barbosa [facility]11-03-2022 History of Present illness Narrative* Jake Barbosa MD - 03/18/2022 2:51 PM EDT Jake Barbosa MD Department of Orthopaedics Orthopaedics [address] [facility] [address] Dept: [phone] Dept March 18, 2022 CHIEF COMPLAINT: Established [...] Flagyl [Metronidazole], Polymyxin [Bacitracin-Polymyxin B], and Neosporin [Ywtrkjxv-Licaxiddjg-Upzqeneau] ROS: General (negative for fatigue, malaise, weight loss/gain) HEENT (negative for headache, earache, recent vision changes, sinus pain, sore throat) Respiratory (no recent shortness of breath, hemoptysis) CV (negative for chest tightness, palpitations) Musculoskeletal (see HPI) Psych (no depression, anxiety) Jake Barbosa MD documented in this encounterAdena Health System10-17-2022 NoteHNO ID: [id number] Author: Jake Barbosa MD Service: ? Author Type: Physician Type: Progress Notes Filed: 03/22/2022 7:47 AM Note Text: Jake Barbosa MD Department of Orthopaedics Orthopaedics [address] [facility] [address] Dept: [phone] Dept March 01, 2022 CHIEF COMPLAINT: Established Patient and Follow Up of the Right Ankle HPI Patient is here today 4 weeks 4 days post fracture of right distal fibula. Patient states she is not having pain and has been ambulating fine in the walking boot. Xrays taken today at [facility]. ASSESSMENT: S82.839A Avulsion fracture of [...] malleolus. Imaging: IMPRESSION: Healing distal fibular fracture. Model Making Supervisor: MARGIE Transcribe Date/Time: Mar 02 2022 1:34P [...] Flagyl [Metronidazole], Polymyxin [Bacitracin-Polymyxin B], and Neosporin [Oytxzeya-Ciiloirfih-Qrlousrgl] ROS: General (negative for fatigue, malaise, weight loss/gain) HEENT (negative for headache, earache, recent vision changes, sinus pain, sore throat) Respiratory (no recent shortness of breath, hemoptysis) CV (negative for chest tightness, palpitations) Musculoskeletal (see HPI) Psych (no depre (more content not included)...[facility] 03-01-2022 NoteHNO ID: [id number] Author: Adela Reina RT(R) Service: Radiology Author [...] Adela Reina, RT(R) March 01, 2022 10:16 [facility]10-17-2022 History of Present illness Narrative* Jake Barbosa MD - 03/01/2022 11:06 AM EDT Jake Barbosa MD Department of Orthopaedics Orthopaedics [address] [facility] [address] Dept: [phone] Dept March 01, 2022 CHIEF COMPLAINT: Established Patient and Follow Up of the Right Ankle HPI Patient is here today 4 weeks 4 days post fracture of right distal fibula. Patient states she is not having pain and has been ambulating fine in the walking boot. Xrays taken today at [facility]. ASSESSMENT: S82.839A Avulsion fracture of [...] malleolus. Imaging: IMPRESSION: Healing distal fibular fracture. Model Making Supervisor: PSCB Transcribe Date/Time: Mar 02 2022 1:34P [...] Flagyl [Metronidazole], Polymyxin [Bacitracin-Polymyxin B], and Neosporin [Gfszoawj-Bkiaagpbpi-Cbznqqqln] ROS: General (negative for fatigue, malaise, weight loss/gain) HEENT (negative for headache, earache, recent vision changes, sinus pain, sore throat) Respiratory (no recent shortness of breath, hemoptysis) CV (negative for chest tightness, palpitations) Musculoskeletal (see HPI) Psych (no depression, anxiety) Jake Barbosa MD documented in this encounterAdena Health System10-17-2022 History of Present illness Narrative* RT Pierre(R) [...] 01, 2022 10:16 AM documented in this encounterAdena Health System09-22-2022 NoteHNO ID: [id number] Author: Sarah Rubin Ma Service: ? Author Type: ? Type: Progress Notes Filed: 02/16/2022 1:09 PM Note Text: PT ASSESSMENT - CASTING ROOM Yaa presents for Application of boot. Applied Don Lisa pneumatic aircast walker to Right foot Patient has been instructed in Care and proper application of brace. Patient signed Tara PPA electronically for billing and verbalized understanding. Sarah Scottie [facility]09-22-2022 NoteHNO ID: [id number] Author: Jake Barbosa MD Service: ? Author Type: Physician Type: Progress Notes Filed: 02/16/2022 1:09 PM Note Text: Jake Barbosa MD Department of Orthopaedics Orthopaedics [address] [facility] [address] Dept: [phone] Dept February 04, 2022 CHIEF COMPLAINT: New and Fracture of the Right Ankle HPI Patient here today for right ankle fracture. States she was walking on an uneven sidewalk outside the critical access hospital and twisted the ankle. She immediately was not able to bear any weight. She was taken by EMS to [facility]. She arrives in a splint today. [...] bleeding 06/10/06 SVT (supraventricular tachycardia) ([facility]) Past Surgical History: PAST SURGICAL HISTORY Procedure [...] Flagyl [Metronidazole], Polymyxin [Bacitracin-Polymyxin B], and Neosporin [Qkmpbigl-Zitggvzmhm-Dyniworck] ROS: General (negative for fatigue, malaise, weight loss/gain) HEENT (negative for headache, earache, recent vision changes, sinus pain, sor (more content not included)...[facility]09-22-2022 History of Present illness Narrative* Sarah Rubin [...] Jake Barbosa MD Department of Orthopaedics Orthopaedics [facility] [address] [facility] [address] Dept: [phone] Dept February 04, 2022 CHIEF COMPLAINT: New and Fracture of the Right Ankle HPI Patient here today for right ankle fracture. States she was walking on an uneven sidewalk outside the critical access hospital and twisted the ankle. She immediately was not able to bear any weight. She was taken byEMS to [facility]. She arrives in a splint today. [...] Flagyl [Metronidazole], Polymyxin [Bacitracin-Polymyxin B], and Neosporin [Eyrnilhh-Fkhpxqslgi-Dtkhrbsab] ROS: General (negative for fatigue, malaise, weight [...] medical record. SELF Emily Perry MD [address] [facility] [address] Jake Barbosa MD documented in this encounterAdena Health System09-15-2022 Miscellaneous Notes* Telephone Encounter - Sintia Elizondo Ma - 01/28/2022 2:41 PM EDT Noted. Thanks. * Telephone Encounter - Jamia Monae - 01/28/2022 9:26 AM EDT Pt fell [place] sidewalk [place] 01/28/[place]. Went to [facility] ER for broken ankle. Scheduled for a 02/03/22 appt documented in this encounterAdena Health System07-17-2021 History of Present illness Narrative* Michelle Potter [...] 29, 2020 12:12 PM [facility] noteNo assessment information availableWAvita Health System Work Phone: Evaluation note* Diagnosis Onset Date Resolution Status Sinus headache acute Tension headache acute Aortic coarctation chronic Essential hypertension chron ic Hyperlipidemia chronic SVT (supraventricular tachycardia) chronic Atrophic vaginitis acute Lichen sclerosus acute Encounter for routine gynecological examination noneactive [facility] Work Phone: evaluation note* Diagnosis Avulsion fracture of distal fibula- Primary Unspecified closed fracture of ankle documented in this encounter [facility] note* Diagnosis Avulsion fracture of distal fibula- Primary Unspecified closed fracture of ankle documented in this encounter [facility] note* Diagnosis Avulsion fracture of distal fibula Unspecified closed fracture of ankle documented in this encounter [facility] note* Diagnosis Avulsion fracture of distal fibula- Primary Unspecified closed fracture of ankle documented in this encounter [facility] note* Diagnosis Chronic pain of left knee- Primary Pain in joint, lower leg Primary osteoarthritis of left knee Primary localized osteoarthrosis, lower leg documented in this encounter [facility] note* Diagnosis Onset Date Resolution Status Essential hypertension chron ic Hyperlipidemia chronic SVT (supraventricular tachycardia) chronic [facility] Work Phone: Reason for referral (narrative)* Diagnostic Procedure Only (Routine) - Pending Review Specialty Diagnoses / Procedures Referred By Contac t Referred To Contact XR IMAGING Diagnoses Avulsion fracture of distal fibula Procedures XR ANKLE GENERAL 3V AP/LAT/OBL RIGHT RADEX ANKLE COMPLETE MINIMUM 3 VIEWS Jake Barbosa MD [address] [place] [address] Xr Imaging Referral ID Status Reason Start Date Expiration Date Visits Requested Visits Authorized [id number] Pending Review Auto-Generat ed Referral 03/24/2023 1 1 [facility] for referral (narrative)* Diagnostic Procedure Only (Routine) - Closed Specialty Diagnoses / Procedures Referred By Contac t Referred To Contact XR IMAGING Diagnoses Avulsion fracture of distal fibula Procedures XR ANKLE GENERAL 3V AP/LAT/OBL RIGHT RADEX ANKLE COMPLETE MINIMUM 3 VIEWS Jake Barbosa MD [address] [place] [address] Xr Imaging Referral ID Status Reason Start Date Expiration Date V isits Requested Visits Authorized [id number] Closed Auto-Generate d Referral 02/22/2022 03/24/2023 1 1 [facility] for referral (narrative)No reason for referral information availableWA[facility]ita [facility] Work Phone: Reason for visit Narrative* Diagnostic Procedure Only (Routine) - Closed Specialty Diagnoses / Procedures Referred By Contac t Referred To Contact XR IMAGING Diagnoses Avulsion fracture of distal fibula Procedures XR ANKLE GENERAL 3V AP/LAT/OBL RIGHT RADEX ANKLE COMPLETE MINIMUM 3 VIEWS Jake Barbosa MD [address] [place] [address] Xr Imaging Referral ID Status Reason Start Date Expiration Date V isits Requested Visits Authorized [id number] Closed Auto-Generate d Referral 02/22/2022 03/24/2023 1 1 [facility] Summary Purpose Family History No Family History Records Found Relationship Condition Age at Onset Recorded Date/T martínez mother Cerebrovascular accident (CVA) Unknown Myocardial infarction Unknown brother Coronary artery disease Unknown father Coronary artery disease Unknown Advance Directives No Advanced Directives Records Found Advance Directive Response Recorded Date/ Time Advance Directives Yes March 8:06am Living Will Yes September 20, 2021 3: 59pm Power of Boarding House Manager Yes September 20, 2021 3:59pm Advance Directive Response Recorded Date/ Time Name of Medical Power of Boarding House Manager Sushant Francisco Javier September 20, 2021 3:59pm Advance Directives Yes March 8:06am Living Will Yes September 20, 2021 3: 59pm Power of Boarding House Manager Yes September 20, 2021 3:59pm Advance Directive Response Recorded Date/ Time Advance Directives Yes March 8:06am Living Will No January 27, 2022 7:17pm Power of Boarding House Manager No January 7:17pm Advance Directive Response Recorded Date/ Time Living Will No January 27, 2022 7:17pm Power of Boarding House Manager No January 7:17pm Advance Directives Yes March [...] at Discharge: .Home Vital Signs: T PRBPSpO2 [id number]% Date/Time11/07 7: 7: 7: 7: 7:23 Range(36.8C [...] Procedure: Open sigmoid Colectomy Surgeon: Nicolas Resident/Fellow/Other Material Planner: Manolo Anesthesia: GETA Estimated Blood Loss (mL): [...] Procedure: Open sigmoid Colectomy Surgeon: Nicolas Resident/Fellow/Other Material Planner: Manolo Anesthesia: GETA Estimated Blood Loss (mL): [...] Last Updated: 02-Nov-2018 17:41 by Marcelino Calero) Chief Complaint and Reason for Visit Chief Complaint HYPERTENSION right arm injury Chief Complaint right arm injury 5 M FU 6 M FU Annual ([employer]) SCREENING Reason for Visit Sinus headache Tension headache Aortic coarctation Essential hypertension Hyperlipidemia SVT (supraventricular tachycardia) Atrophic vaginitis Lichen sclerosus Encounter for routine gynecological examination Chief Complaint right arm injury 5 M FU 6 M FU Annual (SUPER[employer]ING) SCREENING E ORDER Reason for Visit Sinus [...] section and content) DATE CREATED AUTHOR 01/31/2018 [facility] ([place]) DATE CREATED AUTHOR AUTHOR'S ORGANIZ ATION 11/24/2018 [employer] DATE CREATED AUTHOR AUTHOR'S ORGANIZ ATION 01/08/2019 [facility] DATE CREATED AUTHOR AUTHOR'S ORGANIZ ATION 04/19/2022 [facility] DATE CREATED AUTHOR AUTHOR'S ORGANIZ ATION 08/25/2024 [facility] Goals (unrecognized section and content) Goals may [...] or prosecute any alcohol or drug abuse patient.[facility] the event this information is protected by the Federal Confidentiality of Alcohol and Drug Abuse Patient Records regulations: The Federal rules restrict any use of the information to criminally investigate or prosecute any alcohol or drug abuse patient.[facility] SystemIn the event this information is protected by the Federal Confidentiality of Alcohol and Drug Abuse Patient Records regulations: The Federal rules restrict any use of the information to criminally investigate or prosecute any alcohol or drug abuse patient.[facility] System[facility] the event this information is protected by the Federal Confidentiality of Alcohol and Drug Abuse Patient Records regulations: The Federal rules restrict any use of the information to criminally investigate or prosecute any alcohol or drug abuse patient.[facility] SystemIn the event this information is protected by the Federal Confidentiality of Alcohol and Drug Abuse Patient Records regulations: The Federal rules restrict any use of the information to criminally investigate or prosecute any alcohol or drug abuse patient.[facility] SystemIn the event this information is protected by the Federal Confidentiality of Alcohol and Drug Abuse Patient Records regulations: The Federal rules restrict any use of the information to criminally investigate or prosecute any alcohol or drug abuse patient.[facility] System[facility] the event this information is protected by the Federal Confidentiality of Alcohol and Drug Abuse Patient Records regulations: The Federal rules restrict any use of the information to criminally investigate or prosecute any alcohol or drug abuse patient.[facility] Reason for Visit (unrecogniz ed section and content) Reason Comments Patient Update Reason Comments New Fracture Reason Comments Established Patient Follow Up Reason Comments Established Patient Knee Pain Last seen 03/01/22 Right distal fibula f racture Care Teams (unrecognized sec tion and content) Education Teacher Relationship Specialty Start Date End Date Emily Perry [address] [place] [address] PCP - General Family Practice 11/29/20 Education Teacher Relationship Specialty Start Date End Date Emily Perry [address] [place] [address] PCP - General Family Medicine 11/29/20 Education Teacher Relationship Specialty Start Date End Date Emily Perry [address] [place] [address] PCP - General Family Medicine 11/29/20 Education Teacher Relationship Specialty Start Date End Date Emily Perry [address] [place] [address] PCP - General Family Medicine 11/29/20 Education Teacher Relationship Specialty Start Date End Date Vicky Emily Trudy [address] [place], [place] [id number] PCP - General Family Medicine 11/29/20 Education Teacher Relationship Specialty Start Date End Date ArshEmily [...] Prov ider, Attending Provider, Referring Provider Active Education Teacher Relationship Specialty Start Date End Date Emily Perry MD [address] [place], [place] [id number] PCP - General Family Medicine 11/29/20 Team Status: Active Member Role Status Dates Marvel Tirado VSC, MARKETING COMPLIANCE MANAGER-C Primary Care Provider Active Team Status: Inactive Member Role Status Dates No Primary Care Physician Primary Care Provider Active Start: April 03, 2024 End: April 03, 2024 Shanna Alarcon MARKETING COMPLIANCE MANAGER, MARKETING COMPLIANCE MANAGER-C Attending Provider Active Start: April 03, 2024 End: April 03, 2024 Shanna Alarcon MARKETING COMPLIANCE MANAGER, MARKETING COMPLIANCE MANAGER-C Referring Provider Active Start: April 03, 2024 [...] Inactive Member Role Status Dates Amadeo Zambrano MARKETING COMPLIANCE MANAGER, MARKETING COMPLIANCE MANAGER-C Attending Provider Active S tart: April 11, [...] End: May 24, 2024 Zebulun Beam VSC, MARKETING COMPLIANCE MANAGER-C Attending Provider Active Start: May 24, 2024 End: May 24, 2024 Zebulun Beam VSC, MARKETING COMPLIANCE MANAGER-C Referring Provider Active Start: May 24, 2024 End: May 24, 2024 Team Status: Inactive Member Role Status Dates Zebulun Beam VSC, MARKETING COMPLIANCE MANAGER-C Primary Care Provider Active Start: July 10, 2024 End: July 10, 2024 Zebulun Beam VSC, MARKETING COMPLIANCE MANAGER-C Attending Provider Active Start: July 10, 2024 End: July 10, 2024 Zebulun Beam VSC, MARKETING COMPLIANCE MANAGER-C Referring Provider Active Start: July 10, 2024 End: July 10, 2024 Team Status: Active Member Role Status Dates Zebulun Beam VSC, MARKETING COMPLIANCE MANAGER-C Primary Care Provider Active Start: July 18, 2024 Zebulun Beam VSC, MARKETING COMPLIANCE MANAGER-C Attending Provider Active Start: July 18, 2024 Team Status: Inactive Member Role Status Dates Zebulun Beam VSC, MARKETING COMPLIANCE MANAGER-C Primary Care Provider Active Start: July 18, 2024 End: July 18, 2024 Zebulun Beam VSC, MARKETING COMPLIANCE MANAGER-C Attending Provider Active Start: July 18, 2024 End: July 18, 2024 Team Status: Inactive Member Role Status Dates Zebulun Beam VSC, MARKETING COMPLIANCE MANAGER-C Primary Care Provider Active Start: August 20, 2024 End: August 20, 2024 Zebulun Beam VSC, MARKETING COMPLIANCE MANAGER-C Attending Provider Active Start: August 20, 2024 End: August 20, 2024 Zebulun Beam VSC, MARKETING COMPLIANCE MANAGER-C Referring Provider Active Start: August 20, 2024 [...] BE BASED ON THE PRIMARY CLINICAL RECORDS. [employer] provides no warranty or guarantee of the accuracy or completeness of information in this document.
== END | disposition home or self-care (01) ==
PROVIDERS: Referring Provider Orthopaedic Surgery Sports Medicine; Visit Provider Orthopaedic Surgery Sports Medicine
DX: M25.511 Pain in right shoulder (principal)
CPT/HCPCS: 73221